=== PATIENT | female | born 1965 | race Caucasian/White ===

== ENCOUNTER 2019-10-15 21:54 | Emergency (ER) | payer OTHER, SELFPAY ==
--- NOTE | ~2019-10-15 | XR_ITS ---
XR chest 2V 10/15/2019 22:43 Indication: Cough and congestion. Procedure: PA and lateral views of the chest Comparison: Comparison to multiple prior studies sequentially, with oldest reviewed study dated 11/13. Findings: Chronic right perihilar atelectasis/scarring. Heart size normal. No acute focal pneumonia, edema or effusion. No pneumothorax. There are cholecystectomy clips. No acute osseous abnormality. Impression: 1: No acute cardiopulmonary disease. Reviewed, dictated and finalized at location A. [employer] Impression: 1: No acute cardiopulmonary disease.
[2019-10-15 21:57] VITALS: BP 130/68; PULSE 94; RESP 20; TEMP 36.4; O2SAT 97
--- NOTE | 2019-10-15 22:12 | ECG_ITS ---
Measurements Intervals [place] Rate: 83 P: 29 CO: 194 QRS: -77 QRSD: 76 T: 4 QT: 381 QTc: 449 Interpretive Statements SINUS RHYTHM LEFT AXIS DEVIATION LOW QRS VOLTAGE IN PRECORDIAL LEADS BORDERLINE R WAVE PROGRESSION, ANTERIOR LEADS INFERIOR INFARCT, AGE INDETERMINATE BORDERLINE T WAVE ABNORMALITY- ANTERIOR LEADS ABNORMAL ECG Electronically Signed On 10-16-2019 7:18:22 [employer] by Ruy Gayle D.O.
[2019-10-15 22:19] VITALS: BP 124/70; BP 144/66; PULSE 88; PULSE 90
[2019-10-15 22:20] VITALS: BP 121/64; PULSE 92
[2019-10-15 22:25] LABS: Basophils Absolute Auto 0.1 K/mm3 (0.0-0.1); Basophils Percent Auto 0.7 % (0.2-1.2); Eosinophils Absolute Auto 0.6 K/mm3 (0-0.3); Eosinophils Percent Auto 4.8 % (0-4.4); Hematocrit 40.6 % (37.0-47.0); Hemoglobin 13.1 g/dL (12.0-15.0); Immature Granulocyte Absolute 0.05 K/mm3 (0.00-0.031); Immature Granulocyte Percent A 0.4 % (0-0.5); Lymphocytes Absolute Auto 3.45 K/mm3 (0.9-3.2); Lymphocytes Percent Auto 29.2 % (18.3-44.2); Mean Corpuscular HGB Conc 32.3 g/dl (32-36); Mean Corpuscular Volume 77.6 fl (80-100); Mean Platelet Volume 11.6 fl (7.4-10.4); Monocytes Percent Auto 8.7 % (2.6-8.5); Neutrophils Absolute Auto 6.6 K/mm3 (1.3-6.7); Neutrophils Percent Auto 56.2 % (45.5-73.1); Platelet Count Result 263 k/mm3 (150-375); Red Blood Count 5.23 M/mm3 (4.2-5.4); Red Cell Distribution Width 13.7 % (11.5-14.5); White Blood Count 11.8 K/mm3 (4.5-10.0)
--- NOTE | 2019-10-15 22:30 | ED.EAR ---
HPI - Ear Problem General Chief complaint: Ear Stated complaint: L ear pain Time Seen by Provider: 10/15/19 22:02 Source: patient Mode of arrival: ambulatory Limitations: no limitations History of Present Illness HPI Narrative: Patient is a 54-year-old female who presents to the emergency department with complaint of left ear pain. Patient reports feeling ill for the past week and a half. Patient reports congestion in her head and chest. She reports cough, rhinorrhea, fever, and shortness of breath. Patient also notes development now of left-sided ear pain with extension into the left side of her head and neck. Patient states she is now also dizzy and nauseous. Patient also reports symptoms of chest pain, but states this is chronic and has a history of small vessel coronary disease. Patient reports having ill family members whom she has been in contact with. MD Complaint: ear pain Location: left ear Context: Reports recent illness Discharge from ear: Reports no Associated symptoms ear: fever, headache, neck pain and rhinorrhea Related Data Allergies Allergy/AdvReac Type Severity Reaction Status Date / Time No Known Allergies Allergy Verified 10/15/19 22:11 Review of Systems Review of Systems: All systems reviewed & are unremarkable except as noted in HPI and below Constitutional: Constitutional: Reports chills and Reports fever(s) ENT: Reports dizziness, Reports otalgia, Reports headache(s), Reports nasal congestion, Reports nasal discharge and Reports neck pain Cardiovascular: Cardiovascular: Reports chest pain Respiratory: Respiratory: Reports cough and Reports dyspnea Gastrointestinal: Gastrointestinal: Denies diarrhea, Reports nausea and Denies vomiting PMFSH Past Medical History Medical History (Updated 10/16/19 @ 00:06 by Diana Garcia MD) Anxiety Bipolar disorder Coronary artery disease Diabetes mellitus Gastroparesis GERD (gastroesophageal reflux disease) Hepatic steatosis Hyperlipidemia IBS (irritable bowel syndrome) Kidney stones Migraines Osteoarthritis Peripheral neuropathy PTSD (post-traumatic stress disorder) Surgical History Surgical History (Updated 10/15/19 @ 22:37 by Diana Garcia MD) History of back surgery History of cholecystectomy History of hysterectomy History of left oophorectomy History of surgery on left wrist History of tonsillectomy Social History Social History (Updated 10/15/19 @ 22:38 by Diana Garcia MD) Smoking status: Former smoker Gender identity (if verbalized by the patient): Female Comments PMD: Dr. Stella Sneed Exam Const: General: cooperative, no acute distress and alert Nutritional Appearance: obese Orientation/consciousness: patient oriented x3 Limitations: no limitations HENMT: Ears: external ears normal and TM abnormal dull on the left and wth effusion serous on the left Mouth: Yes lip normal and Yes moist mucous membranes Resp: Effort & Inspection: normal respiratory effort Auscultation: clear to auscultation bilaterally Cardio: Rate: regular rate Rhythm: regular rhythm GI: GI Palp: Yes Soft to palpation and No Tenderness to palpation present (GI) Auscultation: normal bowel sounds Skin: General skin exam: normal color Neuro: General: patient oriented x3 Cognition (Neuro): normal cognition Speech: normal speech Extrem: General: normal to inspection, full ROM and no clubbing, cyanosis or edema Psych: Mental Status: mental status grossly normal Affect: normal affect Attitude: cooperative Course Course Emergency Course: Patient with multiple illness symptoms consistent with flulike illness/viral syndrome. Influenza testing negative. Patient complains of left otalgia without any findings to suggest acute bacterial infection. Findings are consistent with viral infection. Patient given symptomatic treatment for a migraine headache, which patient reports history of. Patient discharged home with instructions
[2019-10-15 22:34] LABS: Glucose Point of Care 242 (65-105)
[2019-10-15] MEDS: KETOROLAC 30 MG/ML VIAL (*BKC) IV PUSH (22:49)
[2019-10-15 22:51] LABS: Add Urine Microscopic? YES; Appearance Urine Clear (Clear); Bacteria Urine Trace /hpf; Bilirubin Urine Negative (Negative); Blood Urine Negative (Negative); Color Urine Yellow (Yellow); Glucose Urine UA 3+ mg/dL (Negative); Hyaline Casts Urine 20-29 /lpf; Ketones Urine Negative (Negative); Leukocyte Esterase Ur Trace LEU/UL (Negative); Mucus Urine Rare /lpf; Nitrate Urine Negative (Negative); Protein Urine 1+ mg/dL (Negative); Specific Grav Ur 1.018 (1.001-1.035); Squamous Epithelial Cell Urine Moderate /hpf (Few)
[2019-10-15 23:42] LABS: Alanine Aminotransferase 92 U/L (4-35); Albumin Level 3.8 g/dL (3.5-5.1); Alkaline Phosphatase 116 U/L (38-126); Aspartate Amino Transferase 80 U/L (14-36); Bilirubin,Total 0.4 mg/dL (0.2-1.3); Blood Urea Nitrogen 10 mg/dL (7-17); Calcium 8.7 mg/dL (8.4-10.2); Carbon Dioxide 27 mmol/L (22-30); Chloride 95 mmol/L (98-107); Estimated CRCL calculation 107 ml/min; Estimated Glomerular Filt Rate > 60; Glucose 255 mg/dL (65-105); Potassium 3.9 mmol/L (3.4-5.0); Sodium 134 mmol/L (137-145)
[2019-10-15 23:51] VITALS: BP 120/62; PULSE 76; RESP 20; O2SAT 95
[2019-10-15 23:54] LABS: Troponin I < 0.012 ng/mL (0.000-0.034)
[2019-10-16] MEDS: METOCLOPRAMIDE HCL INJ 10 MG/2 ML VIAL IV PUSH (00:02)
[2019-10-16] MEDS: LACTATED RINGERS 1,000 ML 999 ML IV CONT (00:03)
[2019-10-16 00:05] VITALS: BP 124/67; PULSE 72; RESP 20; O2SAT 96
[2019-10-16 00:42] VITALS: BP 109/65; PULSE 73; RESP 20; O2SAT 97
[2019-10-16 01:02] VITALS: BP 109/61; PULSE 73; RESP 20; O2SAT 98
== END 2019-10-16 01:04 | disposition home or self-care (01) ==
PROVIDERS: Emergency Provider Emergency Medicine
DX: H92.02 Otalgia, left ear (principal); J06.9 Acute upper respiratory infection, unspecified; R51 Headache; E86.0 Dehydration; I73.9 Peripheral vascular disease, unspecified; I25.10 Atherosclerotic heart disease of native coronary artery without angina pectoris; K21.9 Gastro-esophageal reflux disease without esophagitis; E11.43 Type 2 diabetes mellitus with diabetic autonomic (poly)neuropathy; K31.84 Gastroparesis; E11.42 Type 2 diabetes mellitus with diabetic polyneuropathy; E78.5 Hyperlipidemia, unspecified; K58.9 Irritable bowel syndrome, unspecified; Z87.442 Personal history of urinary calculi; M19.90 Unspecified osteoarthritis, unspecified site; Z87.891 Personal history of nicotine dependence; R94.31 Abnormal electrocardiogram [ECG] [EKG]
CPT/HCPCS: 36415; 71046; 80053; 81001; 82948; 84484; 85025; 87086; 87804; 93005; 96361; 96374; 96375; 99284; J1200; J1885; J2765; J7120

== ENCOUNTER 2020-01-17 17:18 | Inpatient (IN) | payer OTHER, SELFPAY ==
--- NOTE | ~2020-01-17 | CT_ITS ---
EXAMINATION: CT abdomen pelvis w con EXAM DATE: 01/17/2020 18:19 INDICATION: Abdominal pain. TECHNIQUE: Spiral CT of the abdomen and pelvis was performed following intravenous injection of 100 m L Omnipaque 350. Axial, coronal and sagittal images were reviewed. The dose-length product (DLP) fo r this examination was 999.57 mGy-cm. The exposure was tailored according to patient size (auto mA e xposure control), and iterative reconstruction (ASIR) was used as additional dose reduction technique . Comparison is made to prior examination from 09/14/2014. FINDINGS: The liver, spleen, adrenal glands and pancreas are unremarkable. There are cholecystectomy clips. Portal and splenic veins are patent. Kidneys enhance symmetrically. There is no hydronephr osis. Partially duplicated right renal collecting system, ureters appear to merge just before the UVJ . The uterus is not identified and has likely been surgically resected. The bladder is unremarkable . There is no retroperitoneal or pelvic lymphadenopathy. The appendix is normal. The stomach and small bowel are unremarkable. There is mild to moderate sca ttered colonic diverticulosis and there is moderate inflammation along the descending/sigmoid colonic junction most likely acute uncomplicated diverticulitis. No free intraperitoneal gas. The heart is normal in size. There are no pericardial or pleural effusions. There is a 5 mm nodule in the rig ht middle lobe unchanged, granuloma. There are no osteoblastic or osteolytic lesions identified. IMPRESSION: 1. Acute uncomplicated descending/sigmoid colonic diverticulitis. 2. 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 Reviewed, dictated and finalized at location A.
[2020-01-17 17:23] VITALS: BP 122/66; PULSE 91; RESP 18; TEMP 37.1; O2SAT 100
--- NOTE | 2020-01-17 17:25 | ED.ABDPAIN ---
HPI - Abdominal Pain General Chief Complaint: Abdominal Pain Stated Complaint: Abd Pain Source: RN notes reviewed History of Present Illness HPI narrative: Patient presents emergency department from home via EMS for abdominal pain. Patient states symptoms began yesterday. Patient states pain is diffuse and worse in the left lower quadrant described as sharp and stabbing associated with nausea and vomiting. Patient denies any fevers or chills chest pain shortness of breath diarrhea or any other symptoms patient does note mild constipation patient was given morphine and Zofran by EMS in route with improvement of symptoms Related Data Allergies Allergy/AdvReac Type Severity Reaction Status Date / Time No Known Allergies Allergy Verified 10/15/19 22:11 Review of Systems Review of Systems: Narrative: Gen.: Denies fevers or chills ENT: Denies congestion Respiratory: Denies shortness of breath or cough CV: Denies chest pain or palpitations GI: See HPI denies burning, urgency, frequency or hematuria Musculoskeletal: Denies back pain or muscle pain Neuro: Denies numbness, tingling, weakness or focal weakness Skin: Denies rash Except as documented, all other systems reviewed and negative [facility] Past Medical History Medical History Anxiety Bipolar disorder Coronary artery disease Diabetes mellitus Gastroparesis GERD (gastroesophageal reflux disease) Hepatic steatosis Hyperlipidemia IBS (irritable bowel syndrome) Kidney stones Migraines Osteoarthritis Peripheral neuropathy PTSD (post-traumatic stress disorder) Surgical History Surgical History (Updated 10/15/19 @ 22:37 by Diana Garcia MD) History of back surgery History of cholecystectomy History of hysterectomy History of left oophorectomy History of surgery on left wrist History of tonsillectomy Social History Social History Smoking status: Former smoker Gender identity (if verbalized by the patient): Female Exam Narrative: Exam Narrative: APPEARANCE: No acute distress, nontoxic, resting in bed HEENT: Normocephalic, atraumatic, OMM RESPIRATORY: No respiratory distress, clear to auscultation bilaterally with no rhonchi wheezing or rales CARDIOVASCULAR: RRR s murmur ABDOMINAL: Soft, nondistended, diffusely tender to palpation no rebound or guarding MUSCULOSKELETAl: Moves all extremities. No clubbing, cyanosis or edema. NEURO: Awake and alert. Following commands, speech normal, no focal deficits SKIN:: Warm, dry. Normal Color PSYCHIATRIC: Normal affect/mood Course Course Emergency Course: Patient continues to be nauseous at this time Zofran and Phenergan secondary to continued nausea will admit for IV antibiotics Discussed with VALERIANO Cooney for Dr. Magana presentation work-up agrees with admission at this time Discussed with patient and family results of workup and diagnosis. Discussed need for admission. Patient and family understand and agree to current treatment plan Vital Signs Vital signs: Vital Signs Temperature 98.7 F 01/17/20 17:23 Pulse Rate 91 01/17/20 17:23 Respiratory Rate 18 01/17/20 17:23 Blood Pressure 122/66 01/17/20 17:23 Pulse Oximetry 100 01/17/20 17:23 Temperature 98.7 F 01/17/20 17:23 Pulse Rate 91 01/17/20 17:23 Respiratory Rate 18 01/17/20 17:23 Blood Pressure 122/66 01/17/20 17:23 Pulse Oximetry 100 01/17/20 17:23 MDM - Abdominal Pain Lab Data Result diagrams: 01/17/20 17:38 01/17/20 17:38 Labs: Lab Results 01/17/20 01/17/20 01/17/20 Range/Units 17:38 17:38 17:38 WBC 11.1 H (4.5-10.0) K/mm3 RBC 4.32 (4.2-5.4) M/mm3 Hgb 11.1 L (12.0-15.0) g/dL Hct 33.8 L (37.0-47.0) % MCV 78.2 L (80-100) fl MCH 25.7 L (26-34) pg MCHC 32.8 (32-36) g/dl RDW 14.2 (11.5-14.5) % Plt Count 194 (150-375) k/mm3
[2020-01-17 17:45] LABS: Basophils Absolute Auto 0.1 K/mm3 (0.0-0.1); Basophils Percent Auto 0.4 % (0.2-1.2); Eosinophils Absolute Auto 0.2 K/mm3 (0-0.3); Eosinophils Percent Auto 1.9 % (0-4.4); Hematocrit 33.8 % (37.0-47.0); Hemoglobin 11.1 g/dL (12.0-15.0); Immature Granulocyte Absolute 0.05 K/mm3 (0.00-0.031); Immature Granulocyte Percent A 0.4 % (0-0.5); Lymphocytes Absolute Auto 2.41 K/mm3 (0.9-3.2); Lymphocytes Percent Auto 21.7 % (18.3-44.2); Mean Corpuscular HGB Conc 32.8 g/dl (32-36); Mean Corpuscular Hemoglobin 25.7 pg (26-34); Mean Corpuscular Volume 78.2 fl (80-100); Mean Platelet Volume 11.6 fl (7.4-10.4); Monocytes Absolute Auto 1.2 K/mm3 (0.1-0.6); Monocytes Percent Auto 10.5 % (2.6-8.5); Neutrophils Absolute Auto 7.2 K/mm3 (1.3-6.7); Neutrophils Percent Auto 65.1 % (45.5-73.1); Platelet Count Result 194 k/mm3 (150-375); Red Blood Count 4.32 M/mm3 (4.2-5.4); Red Cell Distribution Width 14.2 % (11.5-14.5); White Blood Count 11.1 K/mm3 (4.5-10.0)
[2020-01-17] MEDS: SODIUM CHLORIDE 0.9% IV 1,000 ML 999 ML IV CONT (17:50)
[2020-01-17 17:55] LABS: INR 1.2; Prothrombin Time 14.6 Seconds (11.1-14.7)
[2020-01-17 17:56] LABS: Partial Thromboplastin Time 26.1 SECONDS (22.3-36.8)
[2020-01-17] MEDS: PROMETHAZINE HCL 25 MG/ML AMPUL 12.5 MG IV PUSH (17:59)
[2020-01-17 18:00] LABS: Alanine Aminotransferase 43 U/L (4-35); Albumin Level 3.5 g/dL (3.5-5.1); Alkaline Phosphatase 100 U/L (38-126); Aspartate Amino Transferase 30 U/L (14-36); Bilirubin,Total 0.5 mg/dL (0.2-1.3); Blood Urea Nitrogen 7 mg/dL (7-17); Calcium 7.9 mg/dL (8.4-10.2); Carbon Dioxide 26 mmol/L (22-30); Chloride 104 mmol/L (98-107); Estimated CRCL calculation 107 ml/min; Estimated Glomerular Filt Rate > 60; Glucose 109 mg/dL (65-105); Lipase 128 U/L (23-300); Potassium 3.5 mmol/L (3.4-5.0); Sodium 136 mmol/L (137-145)
--- NOTE | 2020-01-17 19:32 | PM.IMHP ---
H&P: HPI History of Present Illness Chief complaint: Diverticulitis, N/V Narrative: This is a pleasant 54 year old morbidly obese Diabetic female with known history of irritable bowel syndrome and diverticular disease presented to the hospital with a complaint of severe left lower quadrant abdominal pain. She is known to have chronic diarrhea and reports that her symptoms started yesterday. Yesterday she had multiple episodes of nausea and vomiting although today she hasn't been vomiting because she didn't eat anything. She denies any fever, chills, abdominal distention, vomiting up blood, bloody diarrhea, hematuria, dysuria, chest pain, cough, wheezing, or focal neurological symptoms. She also reports that today she saw pulmonology as she has been experiencing exertional dyspnea and believes that she may have undiagnosed COPD as she is a lifelong smoker who quit about 4 years ago. She denies any other significant symptoms. The patient was evaluated in the ER today and CT abd/pelvis demonstrated acute uncomplicated descending/sigmoid colonic diverticulitis. The patient has been started on Zosyn IV and admitted to the hospital for further care. The patient also mentions that she is sees Gastroenterology in [place] for her chronic irritable bowel syndrome. No other complaints. Review of Systems Review of Systems: All systems reviewed & are unremarkable except as noted in HPI and below PMFSH Past Medical History Medical History Anxiety Bipolar disorder Coronary artery disease Diabetes mellitus Gastroparesis GERD (gastroesophageal reflux disease) Hepatic steatosis Hyperlipidemia IBS (irritable bowel syndrome) Kidney stones Migraines Osteoarthritis Peripheral neuropathy PTSD (post-traumatic stress disorder) Surgical History Surgical History History of back surgery History of cholecystectomy History of hysterectomy History of left oophorectomy History of surgery on left wrist History of tonsillectomy Family History Family History Father Hypertension Mother Hypertension Social History Social History Smoking packs per day: 1 Smoking cigarettes per day: 20.0 Years smoked: 25 Smoking pack-years: 25.00 Smoking status: Former smoker Tobacco type: cigarettes Alcohol intake: never Substance use: former Substance use type: marijuana Gender identity (if verbalized by the patient): Female Spiritual care concerns: No Meds Home Medications and Allergies Home Medications Medication Instructions Recorded Confirmed Type albuterol sulfate 2 puff INHALATION QID PRN 01/17/20 01/17/20 History aspirin 81 mg PO DAILY 01/17/20 01/17/20 History atorvastatin 80 mg PO HS 01/17/20 01/17/20 History budesonide-formoterol [Symbicort] 2 puff INHALATION DAILY 01/17/20 01/17/20 History citalopram 40 mg PO DAILY 01/17/20 01/17/20 History cromolyn 1 drp OPHTHALMIC (EYE) 4-6XD 01/17/20 01/17/20 History exenatide [Byetta] See Protocol SUBCUT TIDWM 01/17/20 01/17/20 History famotidine 20 mg PO HS 01/17/20 01/17/20 History fluticasone propionate 1 spray INTRANASAL DAILY 01/17/20 01/17/20 History glipizide 10 mg PO BID 01/17/20 01/17/20 History insulin lispro [Admelog U-100 1 sliding scale dose SUBCUT 01/17/20 01/17/20 History Insulin lispro] USEASDIRECTD isosorbide mononitrate 60 mg PO DAILY 01/17/20 01/17/20 History lisinopril 10 mg PO DAILY 01/17/20 01/17/20 History lorazepam 1 mg PO DAILY 01/17/20 01/17/20 History metformin 1,000 mg PO BID 01/17/20 01/17/20 History metoclopramide HCl 5 mg PO TIDWM 01/17/20 01/17/20 History metoprolol tartrate 50 mg PO Q12H 01/17/20 01/17/20 History montelukast 10 mg PO DAILY 01/17/20 01/17/20 History nitroglycerin 0.4 mg SUBLINGUAL Q5-15M PRN 01/17/20 01/17/20 History omeprazole 20 mg P
[2020-01-17 19:58] LABS: Add Urine Microscopic? NO; Appearance Urine Clear (Clear); Bilirubin Urine Negative (Negative); Blood Urine Negative (Negative); Color Urine Colorless (Yellow); Glucose Urine UA Negative (Negative); Ketones Urine Negative (Negative); Leukocyte Esterase Ur Negative LEU/UL (Negative); Nitrate Urine Negative (Negative); Protein Urine Negative (Negative); Specific Grav Ur 1.014 (1.001-1.035); Urobilinogen Urine Negative mg/dL (<2.0)
[2020-01-17 20:35] VITALS: BP 94/51; PULSE 58; RESP 16; TEMP 36.4; O2SAT 95; BMI 37.2
[2020-01-17] MEDS: ONDANSETRON INJ 4 MG/2 ML VIAL IV PUSH (20:43)
[2020-01-17] MEDS: MORPHINE SULFATE 4 MG/ML INJ IV PUSH (20:43)
[2020-01-17 23:00] VITALS: PULSE 95; RESP 18; O2SAT 85
[2020-01-17] MEDS: SODIUM CHLORIDE 0.9% IV 1,000 ML 125 ML IV CONT (23:12)
[2020-01-17 23:23] LABS: Glucose Point of Care 88 (65-105)
[2020-01-18] MEDS: MORPHINE SULFATE 4 MG/ML INJ IV PUSH ×5 (01:18→20:09)
[2020-01-18 05:00] VITALS: BP 101/59; PULSE 60; RESP 16; TEMP 36.3; O2SAT 96
[2020-01-18 05:02] LABS: Basophils Absolute Auto 0.1 K/mm3 (0.0-0.1); Basophils Percent Auto 0.7 % (0.2-1.2); Eosinophils Absolute Auto 0.3 K/mm3 (0-0.3); Eosinophils Percent Auto 2.9 % (0-4.4); Hematocrit 33.8 % (37.0-47.0); Hemoglobin 10.9 g/dL (12.0-15.0); Immature Granulocyte Absolute 0.03 K/mm3 (0.00-0.031); Immature Granulocyte Percent A 0.3 % (0-0.5); Lymphocytes Absolute Auto 2.98 K/mm3 (0.9-3.2); Lymphocytes Percent Auto 29.3 % (18.3-44.2); Mean Corpuscular HGB Conc 32.2 g/dl (32-36); Mean Corpuscular Hemoglobin 25.3 pg (26-34); Mean Corpuscular Volume 78.6 fl (80-100); Mean Platelet Volume 10.8 fl (7.4-10.4); Monocytes Absolute Auto 1.1 K/mm3 (0.1-0.6); Monocytes Percent Auto 10.4 % (2.6-8.5); Neutrophils Absolute Auto 5.7 K/mm3 (1.3-6.7); Neutrophils Percent Auto 56.4 % (45.5-73.1); Platelet Count Result 172 k/mm3 (150-375); Red Cell Distribution Width 14.2 % (11.5-14.5); White Blood Count 10.2 K/mm3 (4.5-10.0)
[2020-01-18] MEDS: ONDANSETRON INJ 4 MG/2 ML VIAL IV PUSH ×4 (05:02→20:10)
[2020-01-18 05:19] LABS: Alanine Aminotransferase 36 U/L (4-35); Albumin Level 3.1 g/dL (3.5-5.1); Alkaline Phosphatase 78 U/L (38-126); Aspartate Amino Transferase 26 U/L (14-36); Bilirubin,Total 0.8 mg/dL (0.2-1.3); Blood Urea Nitrogen 8 mg/dL (7-17); Calcium 7.9 mg/dL (8.4-10.2); Carbon Dioxide 30 mmol/L (22-30); Chloride 107 mmol/L (98-107); Estimated CRCL calculation 96 ml/min; Estimated Glomerular Filt Rate > 60; Glucose 76 mg/dL (65-105); Potassium 3.4 mmol/L (3.4-5.0); Sodium 139 mmol/L (137-145)
[2020-01-18 06:16] LABS: Glucose Point of Care 79 (65-105)
[2020-01-18 08:58] VITALS: PULSE 64; RESP 16; O2SAT 96
[2020-01-18] MEDS: SODIUM CHLORIDE 0.9% IV 1,000 ML 125 ML IV CONT ×2 (08:58→17:36)
[2020-01-18] MEDS: PANTOPRAZOLE SODIUM IV 40 MG VIAL IV PUSH (08:58)
[2020-01-18 11:15] VITALS: BMI 37.2
[2020-01-18 11:32] LABS: Glucose Point of Care 85 (65-105)
--- NOTE | 2020-01-18 12:55 | P.PNIM_ITS ---
Progress Note: A&P Assessment and Plan (1) Sigmoid diverticulitis: Code(s): K57.32 - Diverticulitis of large intestine without perforation or abscess without bleeding Status: Acute Assessment and Plan: CT a/p on 01/17/20 shows acute uncomplicated descending/sigmoid colonic diverticulitis. Patient has had episodes of diverticulitis before and is established with GI at [facility]. She endorses diffuse abdominal pain which is worse in the left lower quadrant. She has not had any nausea or vomiting. She is afebrile. White count is 10.2. * Continue IV Zosyn * Advanced to clear liquid diet. Continue to advance diet as tolerated to low- fiber diet. * Continue IV fluids at 100 mL/hour * Continue Zofran as needed * Continue analgesics as needed (2) Microcytic anemia: Code(s): D50.9 - Iron deficiency anemia, unspecified Status: Acute Assessment and Plan: At presentation, hemoglobin is 11.1 and hematocrit is 33.8. she does not have a history of anemia from review of prior labs. There is no evidence of active bleeding or bruising. This is likely multifactorial. Her vitals are stable. Today, hemoglobin is 10.9 and hematocrit is 33.8. * Monitor H&H and transfuse as needed * Obtain iron panel, B12, and folate (3) Diabetes mellitus: Code(s): E11.9 - Type 2 diabetes mellitus without complications Status: Chronic Assessment and Plan: Patient uses insulin pump. She has been evaluated by CDE. Last A1c documented is from March 2019 at 10.2. * Will place orders for continued insulin pump use. Settings are as follows: Admelog insulin with basal rate of 1.8 units/hr and bolus 1 unit for every 5 carbs. Sensitivity factor of 20 and target blood sugar 120. * Continue accuchecks, SSI coverage, and hypoglycemic protocol. * Resume glipizide tomorrow. Previously held as she was NPO. * Check updated A1c (4) Coronary artery disease: Code(s): I25.10 - Atherosclerotic heart disease of [place] coronary artery without angina pectoris Status: Chronic Assessment and Plan: Stable. No chest pain tonight. * Will resume aspirin, isosorbide mononitrate, atorvastatin, nitro, lisinopril, and metoprolol tomorrow as she advances her diet. All previously held as she was NPO. (5) Bipolar disorder: Code(s): F31.9 - Bipolar disorder, unspecified Status: Chronic Assessment and Plan: Stable. * Resume seroquel tomorrow. Previously held given NPO status. (6) Vaginal irritation: Code(s): N89.8 - Other specified noninflammatory disorders of vagina Status: Acute Assessment and Plan: Patient complains of new onset of vaginal irritation. She has had yeast infections in the past and states this feels similar. This may be due to antibiotic therapy. She denies vaginal discharge or dysuria. UA was clear. * Administer Diflucan x1 dose * Will consider test for bacterial vaginosis, gonorrhea, and chlamydia if symptoms persist (7) GERD (gastroesophageal reflux disease): Code(s): K21.9 - Gastro-esophageal reflux disease without esophagitis Status: Chronic Assessment and Plan: Stable. * Continue IV protonix (8) IBS (irritable bowel syndrome): Code(s): K58.9 - Irritable bowel syndrome without diarrhea Status: Chronic Assessment and Plan: Patient has long history of IBS with diarrhea. She has established with a label stitcher at [facility]. She denies any recent episodes of diarrhea.
--- NOTE | 2020-01-18 12:55 | PM.IMPN ---
Progress Note: A&P Assessment and Plan (1) Sigmoid diverticulitis: Code(s): K57.32 - Diverticulitis of large intestine without perforation or abscess without bleeding Status: Acute Assessment and Plan: CT a/p on 01/17/20 shows acute uncomplicated descending/sigmoid colonic diverticulitis. Patient has had episodes of diverticulitis before and is established with GI at [facility]. She endorses diffuse abdominal pain which is worse in the left lower quadrant. She has not had any nausea or vomiting. She is afebrile. White count is 10.2. Continue IV Zosyn Advanced to clear liquid diet. Continue to advance diet as tolerated to low-fiber diet. Continue IV fluids at 100 mL/hour Continue Zofran as needed Continue analgesics as needed (2) Microcytic anemia: Code(s): D50.9 - Iron deficiency anemia, unspecified Status: Acute Assessment and Plan: At presentation, hemoglobin is 11.1 and hematocrit is 33.8. she does not have a history of anemia from review of prior labs. There is no evidence of active bleeding or bruising. This is likely multifactorial. Her vitals are stable. Today, hemoglobin is 10.9 and hematocrit is 33.8. Monitor H&H and transfuse as needed Obtain iron panel, B12, and folate (3) Diabetes mellitus: Code(s): E11.9 - Type 2 diabetes mellitus without complications Status: Chronic Assessment and Plan: Patient uses insulin pump. She has been evaluated by CDE. Last A1c documented is from March [address] orders for continued insulin pump use. Settings are as follows: Admelog insulin with basal rate of 1.8 units/hr and bolus 1 unit for every 5 carbs. Sensitivity factor of 20 and target blood sugar 120. Continue accuchecks, SSI coverage, and hypoglycemic protocol. Resume glipizide tomorrow. Previously held as she was NPO. Check updated A1c (4) Coronary artery disease: Code(s): I25.10 - Atherosclerotic heart disease of [place] coronary artery without angina pectoris Status: Chronic Assessment and Plan: Stable. No chest pain tonight. Will resume aspirin, isosorbide mononitrate, atorvastatin, nitro, lisinopril, and metoprolol tomorrow as she advances her diet. All previously held as she was NPO. (5) Bipolar disorder: Code(s): F31.9 - Bipolar disorder, unspecified Status: Chronic Assessment and Plan: Stable. Resume seroquel tomorrow. Previously held given NPO status. (6) Vaginal irritation: Code(s): N89.8 - Other specified noninflammatory disorders of vagina Status: Acute Assessment and Plan: Patient complains of new onset of vaginal irritation. She has had yeast infections in the past and states this feels similar. This may be due to antibiotic therapy. She denies vaginal discharge or dysuria. UA was clear. Administer Diflucan x1 dose Will consider test for bacterial vaginosis, gonorrhea, and chlamydia if symptoms persist (7) GERD (gastroesophageal reflux disease): Code(s): K21.9 - Gastro-esophageal reflux disease without esophagitis Status: Chronic Assessment and Plan: Stable. Continue IV protonix (8) IBS (irritable bowel syndrome): Code(s): K58.9 - Irritable bowel syndrome without diarrhea Status: Chronic Assessment and Plan: Patient has long history of IBS with diarrhea. She has established with a home theater expert at [facility]. She denies any recent episodes of diarrhea. Continue to monitor Subjective Date/time seen: 01/18/20 12:55 Interval history: Date of service: 01/18/2020 She reports she is feeling well today. She is hungry and requesting to eat. She complains of diffuse abdominal pain which is worse in the left lower quadrant currently rating 9/10. She denies nausea, vomiting, or diarrhea. She denies fever or chills. She has not had a bowel movement but she is passing gas.
[2020-01-18 14:00] VITALS: BP 146/75; PULSE 61; RESP 18; TEMP 36.2; O2SAT 95
[2020-01-18] MEDS: ACETAMINOPHEN 325 MG TABLET 650 MG PO (16:09)
[2020-01-18 16:48] LABS: Glucose Point of Care 220 (65-105)
[2020-01-18 19:45] VITALS: BP 149/76; PULSE 64; RESP 16; TEMP 36.3; O2SAT 97
[2020-01-19 02:32] LABS: Glucose Point of Care 142 (65-105)
[2020-01-19] MEDS: SODIUM CHLORIDE 0.9% IV 1,000 ML 100 ML IV CONT ×2 (04:43→17:37)
[2020-01-19 05:54] LABS: Basophils Absolute Auto 0.1 K/mm3 (0.0-0.1); Basophils Percent Auto 0.8 % (0.2-1.2); Eosinophils Absolute Auto 0.4 K/mm3 (0-0.3); Eosinophils Percent Auto 5.1 % (0-4.4); Hematocrit 35.5 % (37.0-47.0); Hemoglobin 11.5 g/dL (12.0-15.0); Immature Granulocyte Absolute 0.03 K/mm3 (0.00-0.031); Immature Granulocyte Percent A 0.4 % (0-0.5); Mean Corpuscular HGB Conc 32.4 g/dl (32-36); Mean Corpuscular Hemoglobin 25.3 pg (26-34); Mean Platelet Volume 11.3 fl (7.4-10.4); Monocytes Absolute Auto 0.7 K/mm3 (0.1-0.6); Monocytes Percent Auto 9.7 % (2.6-8.5); Neutrophils Absolute Auto 4.2 K/mm3 (1.3-6.7); Platelet Count Result 191 k/mm3 (150-375); Red Blood Count 4.55 M/mm3 (4.2-5.4); White Blood Count 7.5 K/mm3 (4.5-10.0)
[2020-01-19 06:00] VITALS: BP 131/78; PULSE 64; RESP 20; TEMP 36.2; O2SAT 96
[2020-01-19 06:06] LABS: Alanine Aminotransferase 32 U/L (4-35); Albumin Level 3.3 g/dL (3.5-5.1); Alkaline Phosphatase 85 U/L (38-126); Aspartate Amino Transferase 24 U/L (14-36); Bilirubin,Total 0.6 mg/dL (0.2-1.3); Blood Urea Nitrogen 3 mg/dL (7-17); Carbon Dioxide 29 mmol/L (22-30); Chloride 105 mmol/L (98-107); Estimated CRCL calculation 96 ml/min; Estimated Glomerular Filt Rate > 60; Glucose 123 mg/dL (65-105); Potassium 3.3 mmol/L (3.4-5.0); Sodium 140 mmol/L (137-145)
[2020-01-19 06:11] LABS: Glucose Point of Care 127 (65-105)
[2020-01-19 06:12] LABS: Hemoglobin A1C 9.1 % (<5.7)
[2020-01-19] MEDS: POTASSIUM CHLORIDE 20 MEQ TABLET 40 MEQ PO (06:53)
[2020-01-19 07:11] LABS: Folic Acid 10.9 ng/mL (2.76->20)
[2020-01-19 08:22] LABS: Glucose Point of Care 116 (65-105)
[2020-01-19 09:19] LABS: Iron 65 ug/dL (37-170)
[2020-01-19 09:30] LABS: Percent Iron Saturation 23 % (20-50)
[2020-01-19] MEDS: PANTOPRAZOLE SODIUM IV 40 MG VIAL IV PUSH (10:13)
[2020-01-19] MEDS: ONDANSETRON INJ 4 MG/2 ML VIAL IV PUSH (10:20)
[2020-01-19 11:53] LABS: Glucose Point of Care 228 (65-105)
--- NOTE | 2020-01-19 12:32 | P.PNIM_ITS ---
Progress Note: A&P Assessment and Plan (1) Sigmoid diverticulitis: Code(s): K57.32 - Diverticulitis of large intestine without perforation or abscess without bleeding Status: Acute Assessment and Plan: CT a/p on 01/17/20 shows acute uncomplicated descending/sigmoid colonic diverticulitis. Patient has had episodes of diverticulitis before and is established with GI at [facility]. She endorses LLQ pain without fever, chills, nausea, or vomiting. She is afebrile. White count is 7.5. * Continue IV Zosyn * Advanced to low fat diet. * Continue IV fluids at 100 mL/hour * Continue Zofran as needed * Continue analgesics as needed * Hopeful discharge tomorrow if she continues to tolerate full diet and pain improves (2) Microcytic anemia: Code(s): D50.9 - Iron deficiency anemia, unspecified Status: Acute Assessment and Plan: At presentation, hemoglobin is 11.1 and hematocrit is 33.8. she does not have a history of anemia from review of prior labs. There is no evidence of active bleeding or bruising. This is likely multifactorial. Her vitals are stable. Im proved today with hemoglobin 11.5 and hematocrit 35.5. B12 and Folate wnl. * Monitor H&H and transfuse as needed * Iron panel is pending. (3) Diabetes mellitus: Qualifiers: Diabetes mellitus usp insulin use: with usp use Diabetes mellitus complication status: with neurologic complications Diabetes mellitus complication detail: with polyneuropathy Code(s): E11.9 - Type 2 diabetes mellitus without complications Status: Chronic Assessment and Plan: Patient uses insulin pump. She has been evaluated by CDE. Updated A1c from 01/17 is 9.1. Blood sugar reviewed today and are at target. * Continue insulin pump. Settings are as follows: Admelog insulin with basal rate of 1.8 units/hr and bolus 1 unit for every 5 carbs. Sensitivity factor of 20 and target blood sugar 120. * Continue accuchecks, SSI coverage, and hypoglycemic protocol. * Her metformin, glipizide and exenatide are on hold. (4) Coronary artery disease: Code(s): I25.10 - Atherosclerotic heart disease of [place] coronary artery without angina pectoris Status: Chronic Assessment and Plan: Stable. She denies chest pain. * Resume aspirin, isosorbide mononitrate, atorvastatin, nitro, lisinopril, and metoprolol tomorrow as she advances her diet. All previously held as she was NPO. (5) Bipolar disorder: Code(s): F31.9 - Bipolar disorder, unspecified Status: Chronic Assessment and Plan: Stable. * Resume seroquel tomorrow. Previously held given NPO status. (6) GERD (gastroesophageal reflux disease): Code(s): K21.9 - Gastro-esophageal reflux disease without esophagitis Status: Chronic Assessment and Plan: Stable. * Continue IV protonix (7) IBS (irritable bowel syndrome): Code(s): K58.9 - Irritable bowel syndrome without diarrhea Status: Chronic Assessment and Plan: Patient has long history of IBS with diarrhea. She has established with a ethanol operator at [facility]. She had a loose stool this morning. * Continue to monitor Subjective Date/time seen: 01/19/20 12:32 Interval history: Date of service: 01/19/2020 She reports she has been better today. She is tolerating a full liquid diet. She continues to endorse left lower quadrant pain which she now rates 7/10. She states her pain is worse when she has a bowel movement or pa
--- NOTE | 2020-01-19 12:32 | PM.IMPN ---
Progress Note: A&P Assessment and Plan (1) Sigmoid diverticulitis: Code(s): K57.32 - Diverticulitis of large intestine without perforation or abscess without bleeding Status: Acute Assessment and Plan: CT a/p on 01/17/20 shows acute uncomplicated descending/sigmoid colonic diverticulitis. Patient has had episodes of diverticulitis before and is established with GI at [facility]. She endorses LLQ pain without fever, chills, nausea, or vomiting. She is afebrile. White count is 7.5. Continue IV Zosyn Advanced to low fat diet. Continue IV fluids at 100 mL/hour Continue Zofran as needed Continue analgesics as needed Hopeful discharge tomorrow if she continues to tolerate full diet and pain improves (2) Microcytic anemia: Code(s): D50.9 - Iron deficiency anemia, unspecified Status: Acute Assessment and Plan: At presentation, hemoglobin is 11.1 and hematocrit is 33.8. she does not have a history of anemia from review of prior labs. There is no evidence of active bleeding or bruising. This is likely multifactorial. Her vitals are stable. Improved today with hemoglobin 11.5 and hematocrit 35.5. B12 and Folate wnl. Monitor H&H and transfuse as needed Iron panel is pending. (3) Diabetes mellitus: Qualifiers: Diabetes mellitus intermediate insulin use: with intermediate use Diabetes mellitus complication status: with neurologic complications Diabetes mellitus complication detail: with polyneuropathy Code(s): E11.9 - Type 2 diabetes mellitus without complications Status: Chronic Assessment and Plan: Patient uses insulin pump. She has been evaluated by CDE. Updated A1c from 01/17 is 9.1. Blood sugar reviewed today and are at target. Continue insulin pump. Settings are as follows: Admelog insulin with basal rate of 1.8 units/hr and bolus 1 unit for every 5 carbs. Sensitivity factor of 20 and target blood sugar 120. Continue accuchecks, SSI coverage, and hypoglycemic protocol. Her metformin, glipizide and exenatide are on hold. (4) Coronary artery disease: Code(s): I25.10 - Atherosclerotic heart disease of [place] coronary artery without angina pectoris Status: Chronic Assessment and Plan: Stable. She denies chest pain. Resume aspirin, isosorbide mononitrate, atorvastatin, nitro, lisinopril, and metoprolol tomorrow as she advances her diet. All previously held as she was NPO. (5) Bipolar disorder: Code(s): F31.9 - Bipolar disorder, unspecified Status: Chronic Assessment and Plan: Stable. Resume seroquel tomorrow. Previously held given NPO status. (6) GERD (gastroesophageal reflux disease): Code(s): K21.9 - Gastro-esophageal reflux disease without esophagitis Status: Chronic Assessment and Plan: Stable. Continue IV protonix (7) IBS (irritable bowel syndrome): Code(s): K58.9 - Irritable bowel syndrome without diarrhea Status: Chronic Assessment and Plan: Patient has long history of IBS with diarrhea. She has established with a gold cutter at [facility]. She had a loose stool this morning. Continue to monitor Subjective Date/time seen: 01/19/20 12:32 Interval history: Date of service: 01/19/2020 She reports she has been better today. She is tolerating a full liquid diet. She continues to endorse left lower quadrant pain which she now rates 7/10. She states her pain is worse when she has a bowel movement or passes gas. She denies fever or chills. She had a loose stool this morning. She denies any nausea or vomiting. She denies chest pain or shortness of breath. She is ambulating around the room without difficulty. Review of Systems Review of Systems: Narrative: A 12 point review of systems was reviewed with pertinent positives and negatives as per HPI. Exam Narrative: Exam Narrative: Ms. Young is examined alone today. She
[2020-01-19] MEDS: KETOROLAC 30 MG/ML VIAL (*BKC) IV PUSH (13:14)
[2020-01-19 14:00] VITALS: BP 148/83; PULSE 69; RESP 16; TEMP 36.1; O2SAT 97
[2020-01-19 16:52] LABS: Glucose Point of Care 263 (65-105)
[2020-01-19 20:10] VITALS: BP 145/72; PULSE 65; RESP 16; TEMP 36.5; O2SAT 97
[2020-01-19 20:29] VITALS: PULSE 55
[2020-01-19] MEDS: QUEtiapine FUMARATE 100 MG TABLET 200 MG PO (20:29)
[2020-01-19] MEDS: METOPROLOL TARTRATE 50 MG TAB PO (20:29)
[2020-01-19 23:21] LABS: Glucose Point of Care 182 (65-105)
[2020-01-20] MEDS: SODIUM CHLORIDE 0.9% IV 1,000 ML 100 ML IV CONT (05:00)
[2020-01-20 05:12] LABS: Glucose Point of Care 120 (65-105)
[2020-01-20 05:19] LABS: Hematocrit 35.6 % (37.0-47.0); Hemoglobin 11.5 g/dL (12.0-15.0); Mean Corpuscular HGB Conc 32.3 g/dl (32-36); Mean Corpuscular Volume 77.4 fl (80-100); Mean Platelet Volume 11.2 fl (7.4-10.4); Platelet Count Result 222 k/mm3 (150-375); Red Cell Distribution Width 13.8 % (11.5-14.5)
[2020-01-20 05:24] VITALS: BP 147/85; PULSE 55; RESP 14; TEMP 36.4; O2SAT 98
[2020-01-20 05:33] LABS: Blood Urea Nitrogen 4 mg/dL (7-17); Calcium 8.3 mg/dL (8.4-10.2); Carbon Dioxide 29 mmol/L (22-30); Chloride 105 mmol/L (98-107); Estimated CRCL calculation 110 ml/min; Estimated Glomerular Filt Rate > 60; Glucose 122 mg/dL (65-105); Potassium 3.6 mmol/L (3.4-5.0); Sodium 139 mmol/L (137-145)
[2020-01-20 07:44] LABS: Glucose Point of Care 116 (65-105)
[2020-01-20] MEDS: ISOSORBIDE MONONITRATE 60 MG TAB.ER.24H PO (09:46)
[2020-01-20] MEDS: FLUTICASONE PROPIONATE 0.05% NA SPR 16 GM BTL (*BKC) 1 SPRAY NASAL (09:47)
[2020-01-20] MEDS: PANTOPRAZOLE SODIUM IV 40 MG VIAL IV PUSH (09:47)
[2020-01-20 09:48] VITALS: PULSE 60
[2020-01-20] MEDS: MONTELUKAST SODIUM 10 MG TABLET PO (09:48)
[2020-01-20] MEDS: METOPROLOL TARTRATE 50 MG TAB PO (09:48)
[2020-01-20 11:31] LABS: Glucose Point of Care 235 (65-105)
[2020-01-20] MEDS: lisinopriL 10 MG TABLET PO (11:54)
[2020-01-20] MEDS: CITALOPRAM HYDROBROMIDE 20 MG TABLET 40 MG PO (11:54)
--- NOTE | 2020-01-20 12:59 | PM.DS ---
DS: Admitting Diagnosis Admitting Diagnosis Admitting Diagnosis: Diverticulitis of large intestine without perforation or abscess without bleeding DS: Discharge Diagnosis Discharge Diagnosis (1) Sigmoid diverticulitis: Code(s): K57.32 - Diverticulitis of large intestine without perforation or abscess without bleeding Status: Acute Assessment and Plan: CT a/p on 01/17/20 demonstrated acute uncomplicated descending/sigmoid colonic diverticulitis. Patient has had episodes of diverticulitis before and is established with GI at [facility]. She was treated with IV Zosyn and was able to tolerate a low-fat diet. Her abdominal pain improved. She remained afebrile in her mild leukocytosis improved. She will continue Augmentin as an outpatient to complete a 10 day course of antibiotics. She will follow-up with her turn out worker. (2) Microcytic anemia: Code(s): D50.9 - Iron deficiency anemia, unspecified Status: Acute Assessment and Plan: She had very mild microcytic anemia. Iron panel was within normal limits, as were vitamin B12 and folate. She displayed no active bleeding or bruising. Her levels remained stable. (3) Diabetes mellitus: Qualifiers: Diabetes mellitus director long term care insulin use: with director long term care use Diabetes mellitus complication status: with neurologic complications Diabetes mellitus complication detail: with polyneuropathy Code(s): E11.9 - Type 2 diabetes mellitus without complications Status: Chronic Assessment and Plan: She has used an insulin pump for approximately 1 year. An updated A1c was checked on 01/17 which was 9.1. She was evaluated by CDE. She continued using her pump during her stay with no difficulty and her blood sugars were at target. She will continue her home glycemic regimen and record her blood sugars for review by PCP. (4) Coronary artery disease: Code(s): I25.10 - Atherosclerotic heart disease of [place] coronary artery without angina pectoris Status: Chronic Assessment and Plan: Stable during her stay. Her cardiac medications were initially on hold as she was NPO but were resumed as her diet advanced. (5) Bipolar disorder: Code(s): F31.9 - Bipolar disorder, unspecified Status: Chronic Assessment and Plan: Continue seroquel. (6) GERD (gastroesophageal reflux disease): Code(s): K21.9 - Gastro-esophageal reflux disease without esophagitis Status: Chronic Assessment and Plan: Given IV protonix during her stay. (7) IBS (irritable bowel syndrome): Code(s): K58.9 - Irritable bowel syndrome without diarrhea Status: Chronic Assessment and Plan: Patient has long history of IBS with diarrhea. She is established with a turn out worker at [facility] and will follow-up. DS: Summary Hospital Course Reason for hospitalization: Abdominal pain Hospital Course: Date of admission: 01/17/2020 Date of discharge: 01/20/2020 Sylvia Chatterjee is a 54-year-old female with a past medical history significant for type 2 diabetes mellitus with complications including gastroparesis and peripheral neuropathy on a long-term insulin pump, IBS, CAD, and bipolar disorder who presented the emergency department 01/17/2020 with complaints of diffuse abdominal pain worse in the left lower quadrant, as well as nausea and vomiting. She has had episodes of diverticulitis in the past. At presentation, WBC was elevated at 11.1, H&H mildly decreased at 11.1 and 33.8 respectively, glucose 109, lipase within normal limits, and CT a/p demonstrating acute uncomplicated descending/sigmoid colonic diverticulitis. She was admitted to the hospitalist service for observation on 01/17/2020. She was made NPO with bowel rest, given IV fluids, IV Zosyn, and anti emetics. Her nausea improved as did her abdominal pain. She had somewhat loose stools. She was passin
== END 2020-01-20 14:30 | disposition home or self-care (01) | DRG 244 ==
LOC: ANHED 18:45 → ANH3MED 19:07
PROVIDERS: Family Medicine; Physician Assistant; Admitting Provider Internal Medicine; Emergency Provider Emergency Medicine; PCP Family Medicine; Visit Provider Internal Medicine
DX: K57.32 Diverticulitis of large intestine without perforation or abscess without bleeding (principal); D50.9 Iron deficiency anemia, unspecified; E11.42 Type 2 diabetes mellitus with diabetic polyneuropathy; E11.43 Type 2 diabetes mellitus with diabetic autonomic (poly)neuropathy; K31.84 Gastroparesis; E66.01 Morbid (severe) obesity due to excess calories; Z68.37 Body mass index [BMI] 37.0-37.9, adult; I25.10 Atherosclerotic heart disease of native coronary artery without angina pectoris; F31.9 Bipolar disorder, unspecified; K21.9 Gastro-esophageal reflux disease without esophagitis; K58.9 Irritable bowel syndrome, unspecified; N89.8 Other specified noninflammatory disorders of vagina; E78.5 Hyperlipidemia, unspecified; Z79.4 Long term (current) use of insulin; Z79.82 Long term (current) use of aspirin; Z87.891 Personal history of nicotine dependence
CPT/HCPCS: 36415; 74177; 80048; 80053; 81003; 82607; 82728; 82746; 83036; 83540; 83550; 83690; 85025; 85027; 85610; 85730; 94640; 96361; 96365; 96366; 96367; 96375; 96376; 99285; A9270; C9113; G0378; G0379; J0131; J1885; J2270; J2405; J2543; J2550; J7030; Q9967

== ENCOUNTER 2020-03-13 13:19 | Emergency (ER) | payer OTHER, SELFPAY ==
[2020-03-13 13:44] VITALS: BP 133/69; PULSE 83; RESP 16; TEMP 36.7; O2SAT 99
--- NOTE | 2020-03-13 13:56 | ED.FEMALEGU ---
HPI - Female Genitourinary General Chief complaint: Urogenital-Female Stated complaint: uti/head lice Time Seen by Provider: 03/13/20 13:56 Source: patient and RN notes reviewed Mode of arrival: ambulatory Limitations: no limitations History of Present Illness HPI Narrative: 55-year-old female with history of diabetes, coronary artery disease, kidney stones presents with concern for urine frequency, dysuria, urgency, suprapubic pressure. Reports symptoms started approximately 3 days ago. Reports she is not taking any qsbx-mit-okbzmsy medications for symptoms. She denies fever, malaise, body aches, back pain. Denies abdominal pain, nausea, vomiting. Denies abnormal vaginal discharge. MD elicited complaint: UTI Related Data Home Medications Medication Instructions Recorded Confirmed Byetta See Protocol SUBCUT TIDWM 01/17/20 03/13/20 albuterol sulfate 2 puff INHALATION QID PRN 01/17/20 03/13/20 aspirin 81 mg PO DAILY 01/17/20 03/13/20 atorvastatin 80 mg PO HS 01/17/20 03/13/20 budesonide-formoterol [Symbicort] 2 puff INHALATION DAILY 01/17/20 03/13/20 citalopram 40 mg PO DAILY 01/17/20 03/13/20 cromolyn 1 drp OPHTHALMIC (EYE) 4-6XD 01/17/20 03/13/20 famotidine 20 mg PO HS 01/17/20 03/13/20 fluticasone propionate 1 spray INTRANASAL DAILY 01/17/20 03/13/20 glipizide 10 mg PO BID 01/17/20 03/13/20 insulin lispro [Admelog U-100 1 sliding scale dose SUBCUT 01/17/20 03/13/20 Insulin lispro] USEASDIRECTD isosorbide mononitrate 60 mg PO DAILY 01/17/20 03/13/20 lisinopril 10 mg PO DAILY 01/17/20 03/13/20 lorazepam 1 mg PO DAILY 01/17/20 03/13/20 metformin 1,000 mg PO BID 01/17/20 03/13/20 metoclopramide HCl 5 mg PO TIDWM 01/17/20 03/13/20 metoprolol tartrate 50 mg PO Q12H 01/17/20 03/13/20 montelukast 10 mg PO DAILY 01/17/20 03/13/20 nitroglycerin 0.4 mg SUBLINGUAL Q5-15M PRN 01/17/20 03/13/20 omeprazole 20 mg PO BID 01/17/20 03/13/20 quetiapine 200 mg PO HS 01/17/20 03/13/20 sumatriptan succinate 50 mg PO DAILY PRN 01/17/20 03/13/20 trazodone 100 mg PO HS 01/17/20 03/13/20 Allergies Allergy/AdvReac Type Severity Reaction Status Date / Time No Known Allergies Allergy Verified 03/13/20 13:56 Review of Systems Review of Systems: Narrative: CONSTITUTIONAL: Denies malaise, chills, sweats, or fever. CARDIOVASCULAR: Denies chest pain, palpitations, or edema. RESPIRATORY: Denies cough or dyspnea. GASTROINTESTINAL: Denies abdominal pain, nausea, vomiting, diarrhea. GENITOURINARY: Reports dysuria, frequency, urgency, suprapubic pressure. Denies flank pain or hematuria. SKIN: Denies rash or itching. MUSCULOSKELETAL: Denies myalgia. NEUROLOGIC: Denies headache. All systems reviewed & are unremarkable except as noted in HPI and below PMFSH Past Medical History Medical History Anxiety Bipolar disorder Coronary artery disease Diabetes mellitus Gastroparesis GERD (gastroesophageal reflux disease) Hepatic steatosis Hyperlipidemia IBS (irritable bowel syndrome) Kidney stones Migraines Osteoarthritis Peripheral neuropathy PTSD (post-traumatic stress disorder) Social History Social History Smoking packs per day: 1 Smoking cigarettes per day: 20.0 Years smoked: 25 Smoking pack-years: 25.00 Smoking status: Former smoker Tobacco type: cigarettes Alcohol intake: never Substance use: former Substance use type: marijuana Gender identity (if verbalized by the patient): Female Spiritual care concerns: No Comments At time of signature, agree with nursing past medical, surgical, social and family history. There is no relevant family history pertinent to the presenting complaint Exam Narrative: Exam Narrative: GENERAL: Well-appearing, well-nourished, and in no acute distress. HEAD: Normocephalic. EYES: PERRLA, conjunctivae clear. NECK: Supple. No lymphadenopathy CHEST: Clear to auscultation. No respiratory
== END 2020-03-13 14:06 | disposition home or self-care (01) ==
PROVIDERS: Emergency Provider Nurse Practitioner; PCP Family Medicine
DX: N39.0 Urinary tract infection, site not specified (principal); F17.210 Nicotine dependence, cigarettes, uncomplicated; I25.10 Atherosclerotic heart disease of native coronary artery without angina pectoris; F41.9 Anxiety disorder, unspecified; F32.9 Major depressive disorder, single episode, unspecified; E11.42 Type 2 diabetes mellitus with diabetic polyneuropathy; E11.43 Type 2 diabetes mellitus with diabetic autonomic (poly)neuropathy; K31.84 Gastroparesis; K21.9 Gastro-esophageal reflux disease without esophagitis; E78.5 Hyperlipidemia, unspecified; M19.90 Unspecified osteoarthritis, unspecified site; F43.10 Post-traumatic stress disorder, unspecified
CPT/HCPCS: 81003; 87077; 87086; 87088; 87186; 99213; G0463

== ENCOUNTER 2020-06-15 17:42 | Emergency (ER) | payer OTHER, SELFPAY ==
[2020-06-15 17:52] VITALS: BP 152/81; PULSE 92; RESP 18; TEMP 36.6; O2SAT 100
[2020-06-15 17:59] VITALS: BP 152/81; PULSE 92; RESP 18; TEMP 36.6; O2SAT 100
--- NOTE | 2020-06-15 18:12 | ED.GENADULT ---
HPI - General Adult General Chief complaint: Dental/Oral Stated complaint: Tooth Pain Time Seen by Provider: 06/15/20 18:12 Source: patient and RN notes reviewed Mode of arrival: ambulatory Limitations: no limitations History of Present Illness HPI narrative: 55-year-old female presents with complaints of LT lower dental pain for the past 3 days. Tylenol with little relief. Denies any drainage. No fever. No jaw swelling. No neck swelling. No limitation with speaking or swallowing. Has history of dental caries. Has seen a dentist recently per patient waiting on dental surgeon. No dental trauma. No oral lesions. Exacerbating factors consist of chewing on LT side, eating and drinking cold items. No relieving factors at this time. No dentures or bridges. Tolerating liquids well. The patient reports she have not been diagnosed with COVID-19. The patient reports she is waiting for the results of a COVID-19 lab test in which she had done today due to chills, nausea, vomiting, and diarrhea. The patient reports she do not have fever, weakness, or fatigue. The patient reports she do not have a new or worsening cough or shortness of breath. Denies chest pain. The patient reports she do not have any rhinorrhea, congestion, sore throat, loss of taste, and abdominal pain. Denies recent traveling. Denies concerns for COVID-19 or exposures been home with limited outdoor exposure except for essential household needs and return home. At this time, patient is not suspected of having COVID-19. Some parts of this dictation were generated by voice recognition software and may contain typographical and/or grammatical inaccuracies. Related Data Home Medications Medication Instructions Recorded Confirmed Byetta See Protocol SUBCUT TIDWM 01/17/20 06/15/20 albuterol sulfate 2 puff INHALATION QID PRN 01/17/20 06/15/20 aspirin 81 mg PO DAILY 01/17/20 06/15/20 atorvastatin 80 mg PO HS 01/17/20 06/15/20 budesonide-formoterol [Symbicort] 2 puff INHALATION DAILY 01/17/20 06/15/20 citalopram 40 mg PO DAILY 01/17/20 06/15/20 cromolyn 1 drp OPHTHALMIC (EYE) 4-6XD 01/17/20 06/15/20 famotidine 20 mg PO HS 01/17/20 06/15/20 fluticasone propionate 1 spray INTRANASAL DAILY 01/17/20 06/15/20 glipizide 10 mg PO BID 01/17/20 06/15/20 insulin lispro [Admelog U-100 1 sliding scale dose SUBCUT 01/17/20 06/15/20 Insulin lispro] USEASDIRECTD isosorbide mononitrate 60 mg PO DAILY 01/17/20 06/15/20 lisinopril 10 mg PO DAILY 01/17/20 06/15/20 lorazepam 1 mg PO DAILY 01/17/20 06/15/20 metformin 1,000 mg PO BID 01/17/20 06/15/20 metoclopramide HCl 5 mg PO TIDWM 01/17/20 06/15/20 metoprolol tartrate 50 mg PO Q12H 01/17/20 06/15/20 montelukast 10 mg PO DAILY 01/17/20 06/15/20 nitroglycerin 0.4 mg SUBLINGUAL Q5-15M PRN 01/17/20 06/15/20 quetiapine 200 mg PO HS 01/17/20 06/15/20 sumatriptan succinate 50 mg PO DAILY PRN 01/17/20 06/15/20 trazodone 100 mg PO HS 01/17/20 06/15/20 dicyclomine 10 mg PO DAILY 06/15/20 06/15/20 gabapentin 06/15/20 liraglutide [Victoza 2-Amanuel] mg SUBCUT 06/15/20 loratadine mg 06/15/20 naproxen 500 mg PO DAILY 06/15/20 06/15/20 omeprazole 40 mg PO DAILY 06/15/20 06/15/20 ondansetron HCl 4 mg PO DAILY 06/15/20 06/15/20 Allergies Allergy/AdvReac Type Severity Reaction Status Date / Time No Known Allergies Allergy Verified 06/15/20 17:49 Review of Systems Review of Systems: Narrative: CONSTITUTIONAL: Denies fever, chills, sweats. EYES: Denies visual changes, redness, discharge. ENT: Denies rhinorrhea, congestion, sore throat, otalgia. Complains of LT lower dental pain. CARDIOVASCULAR: Denies chest pain, palpitations, edema. RESPIRATORY: Denies dyspnea, wheezing, cough. GASTROINTESTINAL: Denies abdominal pain, nausea, vomiting, diarrhea. SKIN: Denies rash or itching. MUSCULOSKELETAL: Denies acute back pain, joint pain, or myalgia. NEUROLOGIC: Denies numbness or focal weakness. PSYCHIATRIC: Denies anxiety or depression. All systems revie
[2020-06-15] MEDS: KETOROLAC (*BKC) 60 MG/2 ML VIAL IM (18:25)
== END 2020-06-15 18:55 | disposition home or self-care (01) ==
PROVIDERS: Emergency Provider Nurse Practitioner Family
DX: K02.9 Dental caries, unspecified (principal); K08.89 Other specified disorders of teeth and supporting structures; Z87.891 Personal history of nicotine dependence; I25.10 Atherosclerotic heart disease of native coronary artery without angina pectoris; E11.43 Type 2 diabetes mellitus with diabetic autonomic (poly)neuropathy; E11.42 Type 2 diabetes mellitus with diabetic polyneuropathy; K31.84 Gastroparesis; K21.9 Gastro-esophageal reflux disease without esophagitis; E78.5 Hyperlipidemia, unspecified; M19.90 Unspecified osteoarthritis, unspecified site; F41.9 Anxiety disorder, unspecified; F31.9 Bipolar disorder, unspecified; Z79.4 Long term (current) use of insulin
CPT/HCPCS: 96372; 99213; G0463; J1885

== ENCOUNTER 2020-10-29 20:00 | Emergency (ER) | payer OTHER, SELFPAY ==
--- NOTE | ~2020-10-29 | CT_ITS ---
EXAMINATION: CT abdomen pelvis w con DATE: 10/29/2020 22:57 INDICATION: Left lower quadrant pain. Nausea and vomiting. TECHNIQUE: Computed tomography (CT) of the abdomen and pelvis was performed without intravenous contr ast. The dose-length product was 1037.13 mGy-cm. Automated exposure control and iterative reconstruct ion technique were employed. COMPARISON: CT dated 01/17/2020 FINDINGS: There is a 5 mm right middle lobe nodule, image 13. Otherwise, lung bases are unremarkable. Heart size is normal. No significant pleural or pericardial effusion. There is mild thickening of th e distal esophagus. Status post cholecystectomy. The spleen, pancreas, adrenal glands and kidneys are unremarkable. There is colonic diverticulosis without evidence for diverticulitis. Normal appendix. The uterus is surgically absent. There is a small subcentimeter hypodensity of the right kidney, most likely benign cyst. No free air or free fluid. No significant vascular abnormality. No lymphadenopat hy. There is a circumaortic left renal vein. There are mild degenerative changes of the hips. No acut e osseous abnormality. IMPRESSION: 1. No acute abdominal abnormality. 2: Right middle lobe nodule measuring 5 mm, likely benign. Follow-up low dose CT chest in 12 months r ecommended. Reviewed, dictated and finalized at location A. HERIZATION OPERATIONS MANAGER IMPRESSION: 1. No acute abdominal abnormality. 2: Right middle lobe nodule measuring 5 mm, likely benign. Follow-up low dose C T chest in 12 months recommended.
--- NOTE | ~2020-10-29 | XR_ITS ---
XR chest 2V 10/29/2020 20:46 Indication: Midsternal chest pain Procedure: PA and lateral views of the chest Comparison: Comparison to multiple prior studies sequentially, with oldest reviewed study dated 02/17. Findings: Heart size normal. Atelectasis right midlung. No focal pneumonia, pleural effusion or pneum othorax. No acute osseous abnormality. Impression: 1: Subsegmental atelectasis right midlung zone. Reviewed, dictated and finalized at location A. STOR RELATIONS DIRECTOR Impression: 1: Subsegmental atelectasis right midlung zone.
[2020-10-29 20:26] VITALS: BP 119/85; PULSE 123; RESP 20; TEMP 37; O2SAT 97
--- NOTE | 2020-10-29 20:31 | ECG_ITS ---
Measurements Intervals [place] Rate: 115 P: 50 ND: 201 QRS: 189 QRSD: 94 T: 8 QT: 328 QTc: 454 Interpretive Statements SINUS TACHYCARDIA RIGHT AXIS DEVIATION BORDERLINE AV CONDUCTION DELAY POOR R WAVE PROGRESSION, CONSIDER ANTERIOR INFARCT BORDERLINE ST-T WAVE ABNORMALITY- ANT/INF LEADS ABNORMAL ECG Electronically Signed On 10-30-2020 7:10:41 DISC PAD KNOCKOUT WORKER by Ruy Gayle D.O.
[2020-10-29 21:00] LABS: Basophils Absolute Auto 0.1 K/mm3 (0.0-0.1); Basophils Percent Auto 0.9 % (0.2-1.2); Eosinophils Absolute Auto 0.7 K/mm3 (0-0.3); Eosinophils Percent Auto 5.3 % (0-4.4); Hematocrit 46.3 % (37.0-47.0); Hemoglobin 15.1 g/dL (12.0-15.0); Immature Granulocyte Absolute 0.04 K/mm3 (0.00-0.031); Immature Granulocyte Percent A 0.3 % (0-0.5); Lymphocytes Absolute Auto 4.19 K/mm3 (0.9-3.2); Lymphocytes Percent Auto 31.8 % (18.3-44.2); Mean Corpuscular HGB Conc 32.6 g/dl (32-36); Mean Corpuscular Hemoglobin 25.7 pg (26-34); Mean Corpuscular Volume 78.7 fl (80-100); Mean Platelet Volume 11.9 fl (7.4-10.4); Monocytes Absolute Auto 1.3 K/mm3 (0.1-0.6); Monocytes Percent Auto 9.5 % (2.6-8.5); Neutrophils Absolute Auto 6.9 K/mm3 (1.3-6.7); Neutrophils Percent Auto 52.2 % (45.5-73.1); Platelet Count Result 283 k/mm3 (150-375); Red Blood Count 5.88 M/mm3 (4.2-5.4); Red Cell Distribution Width 14.1 % (11.5-14.5); White Blood Count 13.2 K/mm3 (4.5-10.0)
[2020-10-29 21:10] LABS: INR 0.9; Prothrombin Time 13.2 Seconds (11.1-14.7)
[2020-10-29 21:11] LABS: Partial Thromboplastin Time 27.2 SECONDS (22.3-36.8)
[2020-10-29 21:15] LABS: Anion Gap 12 mmol/L (8-16); Blood Urea Nitrogen 13 mg/dL (7-17); Calcium 9.8 mg/dL (8.4-10.2); Carbon Dioxide 23 mmol/L (22-30); Chloride 100 mmol/L (98-107); Estimated CRCL calculation 89 ml/min; Estimated Glomerular Filt Rate > 60; Glucose 214 mg/dL (65-105); Lipase 125 U/L (23-300); Sodium 135 mmol/L (137-145)
[2020-10-29 21:50] LABS: Troponin I < 0.012 ng/mL (0.000-0.034)
[2020-10-29 22:26] VITALS: BP 147/87; PULSE 102; RESP 25; O2SAT 96
--- NOTE | 2020-10-29 22:53 | ED.ABDPAIN ---
HPI - Abdominal Pain General Chief Complaint: Abdominal Pain Stated Complaint: diverticulitis Time Seen by Provider: 10/29/20 22:35 History of Present Illness HPI narrative: generalized abdominal pain for the past few hours. Associated with nausea and vomiting, constipation. Feels like diverticulitis. No fever. She also reports chest pain, which has resolved. Related Data Home Medications Medication Instructions Recorded Confirmed Byetta See Protocol SUBCUT TIDWM 01/17/20 06/15/20 albuterol sulfate 2 puff INHALATION QID PRN 01/17/20 06/15/20 aspirin 81 mg PO DAILY 01/17/20 06/15/20 atorvastatin 80 mg PO HS 01/17/20 06/15/20 budesonide-formoterol [Symbicort] 2 puff INHALATION DAILY 01/17/20 06/15/20 citalopram 40 mg PO DAILY 01/17/20 06/15/20 cromolyn 1 drp OPHTHALMIC (EYE) 4-6XD 01/17/20 06/15/20 famotidine 20 mg PO HS 01/17/20 06/15/20 fluticasone propionate 1 spray INTRANASAL DAILY 01/17/20 06/15/20 glipizide 10 mg PO BID 01/17/20 06/15/20 insulin lispro [Admelog U-100 1 sliding scale dose SUBCUT 01/17/20 06/15/20 Insulin lispro] USEASDIRECTD isosorbide mononitrate 60 mg PO DAILY 01/17/20 06/15/20 lisinopril 10 mg PO DAILY 01/17/20 06/15/20 lorazepam 1 mg PO DAILY 01/17/20 06/15/20 metformin 1,000 mg PO BID 01/17/20 06/15/20 metoclopramide HCl 5 mg PO TIDWM 01/17/20 06/15/20 metoprolol tartrate 50 mg PO Q12H 01/17/20 06/15/20 montelukast 10 mg PO DAILY 01/17/20 06/15/20 nitroglycerin 0.4 mg SUBLINGUAL Q5-15M PRN 01/17/20 06/15/20 quetiapine 200 mg PO HS 01/17/20 06/15/20 sumatriptan succinate 50 mg PO DAILY PRN 01/17/20 06/15/20 trazodone 100 mg PO HS 01/17/20 06/15/20 dicyclomine 10 mg PO DAILY 06/15/20 06/15/20 gabapentin 06/15/20 liraglutide [Victoza 2-Amanuel] mg SUBCUT 06/15/20 loratadine mg 06/15/20 naproxen 500 mg PO DAILY 06/15/20 06/15/20 omeprazole 40 mg PO DAILY 06/15/20 06/15/20 ondansetron HCl 4 mg PO DAILY 06/15/20 06/15/20 Allergies Allergy/AdvReac Type Severity Reaction Status Date / Time No Known Allergies Allergy Verified 06/15/20 17:49 Review of Systems Review of Systems: All systems reviewed & are unremarkable except as noted in HPI and below Constitutional: Constitutional: Denies chills and Denies fever(s) Cardiovascular: Cardiovascular: Reports chest pain Respiratory: Respiratory: Denies dyspnea Gastrointestinal: Gastrointestinal: Reports abdominal pain, Reports constipation, Reports nausea and Reports vomiting Genitourinary: Genitourinary: Denies hematuria and Denies dysuria Neurologic: Denies numbness and Denies weakness [facility] Past Medical History Medical History Anxiety Bipolar disorder Coronary artery disease Diabetes mellitus Gastroparesis GERD (gastroesophageal reflux disease) Hepatic steatosis Hyperlipidemia IBS (irritable bowel syndrome) Kidney stones Migraines Osteoarthritis Peripheral neuropathy PTSD (post-traumatic stress disorder) Surgical History Surgical History History of back surgery History of cholecystectomy History of hysterectomy History of left oophorectomy History of surgery on left wrist History of tonsillectomy Family History Family History Father Hypertension Dementia Parkinsons disease Mother Hypertension Social History Social History Smoking packs per day: 1 Smoking cigarettes per day: 20.0 Years smoked: 25 Smoking pack-years: 25.00 Smoking status: Former smoker Tobacco type: cigarettes Second hand tobacco smoke exposure: No Smoking end date: 08/24/16 Alcohol intake: current Substance use: former Substance use type: marijuana Gender identity (if verbalized by the patient): Female Spiritual care concerns: No Exam Const: General: no acute distress and alert [place]
[2020-10-29] MEDS: MORPHINE SULFATE (*CRX) 2 MG/ML INJ IV PUSH (23:17)
[2020-10-30 00:03] LABS: Add Urine Microscopic? NO; Appearance Urine Clear (Clear); Bilirubin Urine Negative (Negative); Blood Urine Negative (Negative); Color Urine Straw (Yellow); Glucose Urine UA Negative (Negative); Ketones Urine Negative (Negative); Leukocyte Esterase Ur Negative LEU/UL (Negative); Nitrate Urine Negative (Negative); Protein Urine Negative (Negative); Urobilinogen Urine Negative mg/dL (<2.0)
[2020-10-30 00:05] LABS: Alanine Aminotransferase 71 U/L (4-35); Albumin Level 3.9 g/dL (3.5-5.1); Alkaline Phosphatase 104 U/L (38-126); Aspartate Amino Transferase 55 U/L (14-36); Bilirubin,Total 0.3 mg/dL (0.2-1.3)
[2020-10-30 00:08] LABS: Specific Grav Ur 1.044 (1.001-1.035)
[2020-10-30 00:13] LABS: Troponin I < 0.012 ng/mL (0.000-0.034)
[2020-10-30 00:55] VITALS: BP 136/76; PULSE 91; RESP 20; O2SAT 99
== END 2020-10-30 00:56 | disposition home or self-care (01) ==
PROVIDERS: Emergency Provider Emergency Medicine; PCP Family Medicine
DX: R10.84 Generalized abdominal pain (principal); E11.43 Type 2 diabetes mellitus with diabetic autonomic (poly)neuropathy; E11.42 Type 2 diabetes mellitus with diabetic polyneuropathy; K31.84 Gastroparesis; I25.10 Atherosclerotic heart disease of native coronary artery without angina pectoris; K21.9 Gastro-esophageal reflux disease without esophagitis; E78.5 Hyperlipidemia, unspecified; K58.9 Irritable bowel syndrome, unspecified; Z87.442 Personal history of urinary calculi; M19.90 Unspecified osteoarthritis, unspecified site; F41.9 Anxiety disorder, unspecified; F31.9 Bipolar disorder, unspecified; F43.10 Post-traumatic stress disorder, unspecified; Z79.4 Long term (current) use of insulin; Z87.891 Personal history of nicotine dependence; R00.0 Tachycardia, unspecified; R94.31 Abnormal electrocardiogram [ECG] [EKG]; R91.1 Solitary pulmonary nodule
CPT/HCPCS: 36415; 71046; 74177; 80048; 80076; 81003; 83690; 84484; 85025; 85610; 85730; 93005; 96374; 99284; J2270; Q9967

== ENCOUNTER 2021-04-03 13:46 | Emergency (ER) | payer OTHER, SELFPAY ==
[2021-04-03 13:55] VITALS: BP 110/77; PULSE 74; RESP 16; O2SAT 98
--- NOTE | 2021-04-03 14:17 | ED.FEMALEGU ---
HPI - Female Genitourinary General Chief complaint: Urogenital-Female Stated complaint: uti/yeast infection Time Seen by Provider: 04/03/21 14:18 Source: patient and RN notes reviewed Mode of arrival: ambulatory Limitations: no limitations History of Present Illness HPI Narrative: 56-year-old female with history of peripheral neuropathy, bipolar disorder, coronary artery disease, diabetes, GERD, anemia, diverticulitis presents with concern for urinary tract infection. Reports 1 week history of frequency, urgency, burning, dribbling. Reports drinking cranberry juice with no resolution. Reports history of urinary tract infections. She denies flank pain, hematuria, fever, nausea, vomiting. MD elicited complaint: UTI Related Data Home Medications Medication Instructions Recorded Confirmed albuterol sulfate 2 puff INHALATION QID PRN 01/17/20 04/03/21 aspirin 81 mg PO DAILY 01/17/20 04/03/21 atorvastatin 80 mg PO HS 01/17/20 04/03/21 budesonide-formoterol [Symbicort] 2 puff INHALATION DAILY 01/17/20 04/03/21 citalopram 40 mg PO DAILY 01/17/20 04/03/21 cromolyn 1 drp OPHTHALMIC (EYE) 4-6XD 01/17/20 04/03/21 famotidine 20 mg PO HS 01/17/20 04/03/21 fluticasone propionate 1 spray INTRANASAL DAILY 01/17/20 04/03/21 glipizide 10 mg PO BID 01/17/20 04/03/21 insulin lispro [Admelog U-100 1 sliding scale dose SUBCUT 01/17/20 04/03/21 Insulin lispro] USEASDIRECTD isosorbide mononitrate 60 mg PO DAILY 01/17/20 04/03/21 lisinopril 10 mg PO DAILY 01/17/20 04/03/21 lorazepam 1 mg PO DAILY 01/17/20 04/03/21 metformin 1,000 mg PO BID 01/17/20 04/03/21 metoclopramide HCl 5 mg PO TIDWM 01/17/20 04/03/21 metoprolol tartrate 50 mg PO Q12H 01/17/20 04/03/21 montelukast 10 mg PO DAILY 01/17/20 04/03/21 nitroglycerin 0.4 mg SUBLINGUAL Q5-15M PRN 01/17/20 04/03/21 quetiapine 200 mg PO HS 01/17/20 04/03/21 sumatriptan succinate 50 mg PO DAILY PRN 01/17/20 04/03/21 trazodone 100 mg PO HS 01/17/20 04/03/21 dicyclomine 10 mg PO DAILY 06/15/20 04/03/21 gabapentin 600 mg PO BID 06/15/20 04/03/21 liraglutide [Victoza 2-Amanuel] 0.6 mg SUBCUT DIRECTED 06/15/20 04/03/21 loratadine 10 mg PO DAILY 06/15/20 04/03/21 naproxen 500 mg PO DAILY 06/15/20 04/03/21 Allergies Allergy/AdvReac Type Severity Reaction Status Date / Time No Known Allergies Allergy Verified 04/03/21 14:05 Review of Systems Review of Systems: CONSTITUTIONAL: Denies malaise, chills, sweats, or fever. CARDIOVASCULAR: Denies chest pain, palpitations, or edema. RESPIRATORY: Denies cough or dyspnea. GASTROINTESTINAL: Denies abdominal pain, nausea, vomiting, diarrhea. Reports suprapubic discomfort GENITOURINARY: Reports frequency, urgency, dysuria, dribbling. Denies hematuria. SKIN: Reports mild vaginal irritation MUSCULOSKELETAL: Denies back pain or myalgia. All systems reviewed & are unremarkable except as noted in HPI and below PMFSH Past Medical History Medical History (Updated 04/03/21 @ 14:23 by Dianne Salazar NP) Anxiety Bipolar disorder Coronary artery disease Diabetes mellitus Gastroparesis GERD (gastroesophageal reflux disease) Hepatic steatosis Hyperlipidemia IBS (irritable bowel syndrome) Kidney stones Migraines Osteoarthritis Peripheral neuropathy PTSD (post-traumatic stress disorder) Surgical History Surgical History History of back surgery History of cholecystectomy History of hysterectomy History of left oophorectomy History of surgery on left wrist History of tonsillectomy Family History Family History Father Hypertension Dementia Parkinsons disease Mother Hypertension Social History Social History Smoking packs per day: 1 Smoking cigarettes per day: 20.0 Years smoked: 25 Smoking pack-years: 25.00 Smoking status: Former smoker Tobacco type: cigarettes Se
== END 2021-04-03 14:28 | disposition home or self-care (01) ==
PROVIDERS: Emergency Provider Nurse Practitioner
DX: R35.0 Frequency of micturition (principal); R30.0 Dysuria; R39.15 Urgency of urination; I25.10 Atherosclerotic heart disease of native coronary artery without angina pectoris; E11.42 Type 2 diabetes mellitus with diabetic polyneuropathy; E11.43 Type 2 diabetes mellitus with diabetic autonomic (poly)neuropathy; K31.84 Gastroparesis; K21.9 Gastro-esophageal reflux disease without esophagitis; K76.0 Fatty (change of) liver, not elsewhere classified; M19.90 Unspecified osteoarthritis, unspecified site; Z87.442 Personal history of urinary calculi; Z87.891 Personal history of nicotine dependence; Z79.82 Long term (current) use of aspirin
CPT/HCPCS: 81003; 87077; 87086; 87088; 87186; 99213; G0463

== ENCOUNTER 2021-06-26 21:26 | Emergency (ER) | payer OTHER, SELFPAY ==
--- NOTE | ~2021-06-26 | XR_ITS ---
XR chest 2V DATE: 06/26/2021 22:12 INDICATION: Cough, shortness of breath, chest tightness for 3 weeks. TECHNIQUE: PA and lateral views COMPARISON: 10/29/2020 2 view chest FINDINGS: Normal heart size. No hilar or mediastinal enlargement. Chronic discoid scarring in the right mid lung. No pulmonary infiltrate or consolidation, pleural eff usion or pulmonary vascular congestion or pneumothorax. Status post cholecystectomy. IMPRESSION: Chronic mild discoid scarring in the right midlung; no active cardiopulmonary disease or significant change since 10/30/2019 Reviewed, dictated and finalized at location A. IMPRESSION: Chronic mild discoid scarring in the right midlung; no active cardi opulmonary disease or significant change since 10/30/2019
--- NOTE | 2021-06-26 21:29 | ECG_ITS ---
Measurements Intervals [place] Rate: 83 P: 41 ND: 220 QRS: -60 QRSD: 96 T: -1 QT: 378 QTc: 445 Interpretive Statements SINUS RHYTHM WITH FIRST DEGREE AV BLOCK INCOMPLETE RIGHT BUNDLE BRANCH BLOCK LOW QRS VOLTAGE IN PRECORDIAL LEADS POOR R WAVE PROGRESSION, ANTERIOR LEADS INFERIOR INFARCT, AGE INDETERMINATE BASELINE WANDER- I, AVL, V4-V6 ABNORMAL ECG Electronically Signed On 06-27-2021 6:35:31 CDT by Ruy Gayle D.O.
[2021-06-26 21:43] VITALS: BP 148/71; PULSE 88; RESP 18; TEMP 36; O2SAT 98
[2021-06-26 22:22] LABS: Basophils Absolute Auto 0.1 K/mm3 (0.0-0.1); Basophils Percent Auto 1.1 % (0.2-1.2); Eosinophils Absolute Auto 0.5 K/mm3 (0-0.3); Eosinophils Percent Auto 6.1 % (0-4.4); Hematocrit 40.6 % (37.0-47.0); Hemoglobin 13.4 g/dL (12.0-15.0); Immature Granulocyte Absolute 0.02 K/mm3 (0.00-0.031); Immature Granulocyte Percent A 0.2 % (0-0.5); Lymphocytes Absolute Auto 2.83 K/mm3 (0.9-3.2); Lymphocytes Percent Auto 34.1 % (18.3-44.2); Mean Corpuscular Hemoglobin 25.7 pg (26-34); Mean Corpuscular Volume 77.9 fl (80-100); Mean Platelet Volume 11.5 fl (7.4-10.4); Monocytes Absolute Auto 0.9 K/mm3 (0.1-0.6); Monocytes Percent Auto 10.7 % (2.6-8.5); Neutrophils Percent Auto 47.8 % (45.5-73.1); Platelet Count Result 263 k/mm3 (150-375); Red Blood Count 5.21 M/mm3 (4.2-5.4); Red Cell Distribution Width 13.7 % (11.5-14.5); White Blood Count 8.3 K/mm3 (4.5-10.0)
[2021-06-26 23:00] VITALS: BP 124/76; PULSE 79; RESP 15; TEMP 37.4; O2SAT 100
[2021-06-26 23:09] LABS: Anion Gap 10 mmol/L (8-16); Blood Urea Nitrogen 13 mg/dL (7-17); Calcium 9.3 mg/dL (8.4-10.2); Carbon Dioxide 23 mmol/L (22-30); Chloride 105 mmol/L (98-107); Estimated CRCL calculation 91 ml/min; Estimated Glomerular Filt Rate > 60; Glucose 249 mg/dL (65-110); Potassium 4.1 mmol/L (3.4-5.0); Sodium 138 mmol/L (137-145)
--- NOTE | 2021-06-26 23:10 | ED.SOB ---
HPI - SOB/Dyspnea General Chief Complaint: Shortness of Breath/Dyspnea Stated Complaint: sob Time Seen by Provider: 06/26/21 22:36 Source: patient Mode of arrival: ambulatory Limitations: no limitations History of Present Illness HPI Narrative: 56-year-old with a history of asthma, diabetes, hypertension here with complaints of nasal congestion, cough which is nonproductive and short of breath for last 2 days. She presently denies any fever or chills. Patient states that she had a fever few days ago for the past 1 day. She states her throat is sore and both ears are clogged. MD elicited complaint: cough Pertinent past history: asthma Onset (ago): day(s) (3) Timing: constant Severity: mild Exacerbating factors: nothing Relieving factors: nothing Known history of: asthma Associated symptoms: cough Related Data Home oxygen amount: none Home Medications Medication Instructions Recorded Confirmed albuterol sulfate 2 puff INHALATION QID PRN 01/17/20 04/03/21 aspirin 81 mg PO DAILY 01/17/20 04/03/21 atorvastatin 80 mg PO HS 01/17/20 04/03/21 budesonide-formoterol [Symbicort] 2 puff INHALATION DAILY 01/17/20 04/03/21 citalopram 40 mg PO DAILY 01/17/20 04/03/21 cromolyn 1 drp OPHTHALMIC (EYE) 4-6XD 01/17/20 04/03/21 famotidine 20 mg PO HS 01/17/20 04/03/21 fluticasone propionate 1 spray INTRANASAL DAILY 01/17/20 04/03/21 glipizide 10 mg PO BID 01/17/20 04/03/21 insulin lispro [Admelog U-100 1 sliding scale dose SUBCUT 01/17/20 04/03/21 Insulin lispro] USEASDIRECTD isosorbide mononitrate 60 mg PO DAILY 01/17/20 04/03/21 lisinopril 10 mg PO DAILY 01/17/20 04/03/21 lorazepam 1 mg PO DAILY 01/17/20 04/03/21 metformin 1,000 mg PO BID 01/17/20 04/03/21 metoclopramide HCl 5 mg PO TIDWM 01/17/20 04/03/21 metoprolol tartrate 50 mg PO Q12H 01/17/20 04/03/21 montelukast 10 mg PO DAILY 01/17/20 04/03/21 nitroglycerin 0.4 mg SUBLINGUAL Q5-15M PRN 01/17/20 04/03/21 quetiapine 200 mg PO HS 01/17/20 04/03/21 sumatriptan succinate 50 mg PO DAILY PRN 01/17/20 04/03/21 trazodone 100 mg PO HS 01/17/20 04/03/21 dicyclomine 10 mg PO DAILY 06/15/20 04/03/21 gabapentin 600 mg PO BID 06/15/20 04/03/21 liraglutide [Victoza 2-Amanuel] 0.6 mg SUBCUT DIRECTED 06/15/20 04/03/21 loratadine 10 mg PO DAILY 06/15/20 04/03/21 naproxen 500 mg PO DAILY 06/15/20 04/03/21 Allergies Allergy/AdvReac Type Severity Reaction Status Date / Time No Known Allergies Allergy Verified 06/26/21 23:04 Review of Systems Review of Systems: All systems reviewed & are unremarkable except as noted in HPI and below Constitutional: Constitutional: Reports no additional constitutional complaints Eyes: Eyes: Reports no additional eye complaints ENT: Reports system reviewed and no additional complaints, except as documented Cardiovascular: Cardiovascular: Reports no additional cardiovascular complaints Respiratory: Respiratory: Reports as per HPI Gastrointestinal: Gastrointestinal: Reports no additional gastrointestinal complaints Musculoskeletal: Musculoskeletal: Reports no additional musculoskeletal complaints Integumentary/Breasts: Skin/Breast: Reports system reviewed and no additional complaints, except as docu Neurologic: Reports system reviewed and no additional complaints, except as documented [facility] Past Medical History Medical History (Updated 06/26/21 @ 23:16 by Bob Villa MD) Anxiety Bipolar disorder Coronary artery disease Diabetes mellitus Gastroparesis GERD (gastroesophageal reflux disease) Hepatic steatosis Hyperlipidemia IBS (irritable bowel syndrome) Kidney stones Migraines Osteoarthritis Peripheral neuropathy PTSD (post-traumatic stress disorder) Surgical History Surgical History History of back surgery History of cholecystectomy History of hysterectomy History of left oophorectomy History of surgery on left wrist History of tonsillectomy Family History Family History (Reviewed
[2021-06-26 23:34] VITALS: PULSE 84
[2021-06-26 23:49] VITALS: BP 132/96; PULSE 88; RESP 20; O2SAT 98
--- NOTE | 2021-06-26 23:51 | PC.NURSE ---
erp aware of chest pain pt ok for discharge
== END 2021-06-26 23:51 | disposition home or self-care (01) ==
LOC: ANHED 23:29
PROVIDERS: Emergency Provider Family Medicine
DX: B34.9 Viral infection, unspecified (principal); F41.9 Anxiety disorder, unspecified; F31.9 Bipolar disorder, unspecified; E11.9 Type 2 diabetes mellitus without complications; Z79.4 Long term (current) use of insulin; K21.9 Gastro-esophageal reflux disease without esophagitis; K76.0 Fatty (change of) liver, not elsewhere classified
CPT/HCPCS: 36415; 71046; 80048; 85025; 93005; 99284

== ENCOUNTER 2021-07-03 12:19 | Emergency (ER) | payer OTHER, SELFPAY ==
--- NOTE | ~2021-07-03 | XR_ITS ---
XR finger 3rd RT min 2V 07/03/2021 14:45 Indication: Trauma to the tip of the third finger Procedure: 4 views right third finger Comparison: 03/17/2015 Findings: Mild polyarticular osteoarthritis. Osteopenia. No fracture or traumatic malalignment. No fo reign body. Impression: 1: No acute fracture. Reviewed, dictated and finalized at location A. EMAN Impression: 1: No acute fracture.
[2021-07-03 12:30] VITALS: BP 140/86; PULSE 97; RESP 17; TEMP 37; O2SAT 97
--- NOTE | 2021-07-03 14:31 | ED.UPPEXIN ---
HPI - Extremity Injury (Upper) General Chief Complaint: Extremity Injury, Upper <Helena Benitez PA-C - Last Filed: 07/03/21 15:24> Stated Complaint: cut finger on blood thinners <TOMYM Arriaga Last Filed: 07/03/21 15:24> Time Seen by Provider: 07/03/21 12:46 <Helena Benitez PA-C - Last Filed: 07/03/21 15:24> Source: patient <TOMMY Arriaga Last Filed: 07/03/21 15:24> Mode of arrival: ambulatory <TOMMY Arriaga Last Filed: 07/03/21 15:24> Limitations: no limitations <Helena Benitez PA-C - Last Filed: 07/03/21 15:24> History of Present Illness HPI narrative: This is a 56 year old female that presents to the ER for laceration to the right third finger sustained just prior to arrival. Reports she was cutting meat and the knife slipped. She is not up to date on tetanus. Denies decreased ROM or numbness. <Helena Benitez PA-C - Last Filed: 07/03/21 15:24> Related Data Home Medications: Home Medications Medication Instructions Recorded Confirmed albuterol sulfate 2 puff INHALATION QID PRN 01/17/20 04/03/21 aspirin 81 mg PO DAILY 01/17/20 04/03/21 atorvastatin 80 mg PO HS 01/17/20 04/03/21 budesonide-formoterol [Symbicort] 2 puff INHALATION DAILY 01/17/20 04/03/21 citalopram 40 mg PO DAILY 01/17/20 04/03/21 cromolyn 1 drp OPHTHALMIC (EYE) 4-6XD 01/17/20 04/03/21 famotidine 20 mg PO HS 01/17/20 04/03/21 fluticasone propionate 1 spray INTRANASAL DAILY 01/17/20 04/03/21 glipizide 10 mg PO BID 01/17/20 04/03/21 insulin lispro [Admelog U-100 1 sliding scale dose SUBCUT 01/17/20 04/03/21 Insulin lispro] USEASDIRECTD isosorbide mononitrate 60 mg PO DAILY 01/17/20 04/03/21 lisinopril 10 mg PO DAILY 01/17/20 04/03/21 lorazepam 1 mg PO DAILY 01/17/20 04/03/21 metformin 1,000 mg PO BID 01/17/20 04/03/21 metoclopramide HCl 5 mg PO TIDWM 01/17/20 04/03/21 metoprolol tartrate 50 mg PO Q12H 01/17/20 04/03/21 montelukast 10 mg PO DAILY 01/17/20 04/03/21 nitroglycerin 0.4 mg SUBLINGUAL Q5-15M PRN 01/17/20 04/03/21 quetiapine 200 mg PO HS 01/17/20 04/03/21 sumatriptan succinate 50 mg PO DAILY PRN 01/17/20 04/03/21 trazodone 100 mg PO HS 01/17/20 04/03/21 dicyclomine 10 mg PO DAILY 06/15/20 04/03/21 gabapentin 600 mg PO BID 06/15/20 04/03/21 liraglutide [Victoza 2-Amanuel] 0.6 mg SUBCUT DIRECTED 06/15/20 04/03/21 loratadine 10 mg PO DAILY 06/15/20 04/03/21 naproxen 500 mg PO DAILY 06/15/20 04/03/21 <Helena Benitez PA-C - Last Filed: 07/03/21 15:24> Allergies/Adverse Reactions: Allergies Allergy/AdvReac Type Severity Reaction Status Date / Time No Known Allergies Allergy Verified 06/26/21 23:04 <Helena Benitez PA-C - Last Filed: 07/03/21 15:24> Review of Systems Review of Systems: CONSTITUTIONAL: Denies fever SKIN: Reports laceration MUSCULOSKELETAL: Denies joint pain, or myalgia. NEUROLOGIC: Denies numbness <Helena Benitez PA-C - Last Filed: 07/03/21 15:24> All systems reviewed & are unremarkable except as noted in HPI and below <Helena Benitez PA-C - Last Filed: 07/03/21 15:24> [facility] Past Medical History Medical History: Medical History (Updated 07/03/21 @ 15:21 by Helena Benitez PA-C) Anxiety Bipolar disorder Coronary artery disease Diabetes mellitus Gastroparesis GERD (gastroesophageal reflux disease) Hepatic steatosis Hyperlipidemia IBS (irritable bowel syndrome) Kidney stones Migraines Osteoarthritis Peripheral neuropathy PTSD (post-traumatic stress disorder) <Helena Benitez PA-C - Last Filed: 07/03/21 15:24> Surgical History Surgical History: Surgical History History of back surgery History of cholecystectomy History of hysterectomy History of left oophorectomy History of surgery on left wrist History of tonsillectomy <Helena Benitez PA-C - Last Filed: 07/03/21 15:24> Family History Family History: Family History (Reviewed 06/26/21 @ 2
[2021-07-03] MEDS: HYDROcodone/acetaminophen (*CRX) 5-325 MG TABLET 1 TAB PO (15:40)
[2021-07-03] MEDS: TETANUS,DIPHTHERIA,AC PERTUSSIS ADULT (0.5 ML) BOOSTRIX IM (15:41)
[2021-07-03 15:50] VITALS: BP 145/89; PULSE 80; RESP 18; TEMP 36.3; O2SAT 94
== END 2021-07-03 15:50 | disposition home or self-care (01) ==
PROVIDERS: Emergency Provider Emergency Medicine; PCP Family Medicine
DX: S61.212A Laceration without foreign body of right middle finger without damage to nail, initial encounter (principal); Z79.01 Long term (current) use of anticoagulants; Z87.891 Personal history of nicotine dependence; F41.9 Anxiety disorder, unspecified; F31.9 Bipolar disorder, unspecified; I25.10 Atherosclerotic heart disease of native coronary artery without angina pectoris; E11.9 Type 2 diabetes mellitus without complications; K21.9 Gastro-esophageal reflux disease without esophagitis; M19.90 Unspecified osteoarthritis, unspecified site; K76.0 Fatty (change of) liver, not elsewhere classified; Z79.4 Long term (current) use of insulin; W26.0XXA Contact with knife, initial encounter; Z23 Encounter for immunization
CPT/HCPCS: 12001; 73140; 90471; 90715; 99283; A9270

== ENCOUNTER 2022-02-06 23:01 | Emergency (ER) | payer OTHER, SELFPAY ==
--- NOTE | ~2022-02-06 | CT_ITS ---
EXAMINATION: CT abdomen pelvis w con DATE: 02/07/2022 04:00 INDICATION: Left lower quadrant abdominal pain and leukocytosis. TECHNIQUE: Computed tomography (CT) of the abdomen and pelvis was performed with 100 mL Omnipaque-300 intravenous contrast. Automated exposure control and iterative reconstruction technique were employe d. The dose-length product was 1240.17 mGy-cm. COMPARISON: 10/29/2020 and 01/17/2020 FINDINGS: Mild discoid atelectasis at the right middle lobe and lingula with additional mild dependent atelecta sis in the bilateral lower lobes. 5 mm likely benign noncalcified granuloma in the right middle lobe nodule, unchanged since 01/17/2020. Heart size is normal. Atherosclerotic coronary artery calcificatio n. No pericardial or pleural effusion. Small sliding-type hiatal hernia with wall thickening the dist al esophagus suggestive of esophagitis such as in the setting of reflux. Cholecystectomy clips at gal lbladder fossa. Liver, spleen, pancreas and bilateral adrenal glands are normal. There are couple sub centimeter low-attenuation likely cyst in the right kidney which are too small to definitively charac terize. Left kidney is normal. Mild scattered diverticulosis. There is mild inflammatory scarring yulia rounding a diverticulum at the distal descending colon consistent with diverticulitis. No abscess or free intraperitoneal gas. Small bowel and appendix are normal. Partially decompressed bladder is unre markable. The uterus is not identified and has likely been surgically resected. No pathologically enl arged abdominal or pelvic lymphadenopathy. Mild scattered degenerative skeletal changes. IMPRESSION: 1. Radiographically uncomplicated diverticulitis at the distal descending colon. 2. Small sliding-type hiatal hernia with wall thickening the distal esophagus likely related to reflu x esophagitis. Given that this has been present on prior imaging would consider endoscopy for further evaluation. Reviewed, dictated and finalized at location A. IMPRESSION: 1. Radiographically uncomplicated diverticulitis at the distal descending colon . 2. Small sliding-type hiatal hernia with wall thickening the distal esophagus l ikely related to reflux esophagitis. Given that this has been present on prior imaging would consider endoscopy for further evaluation.
[2022-02-06 23:06] VITALS: BP 102/63; PULSE 51; RESP 18; TEMP 36.8; O2SAT 96
--- NOTE | 2022-02-07 00:16 | ED.ABDPAIN ---
HPI - Abdominal Pain General Chief Complaint: Abdominal Pain Stated Complaint: abd pain Time Seen by Provider: 02/07/22 00:16 History of Present Illness HPI narrative: Patient is a 57-year-old female with history of insulin-dependent diabetes, IBS, known diverticular disease, presenting to the emergency department for evaluation of left lower quadrant abdominal pain. Pain is located in the left lower quadrant described as aching, sharp in nature. Patient with associated nausea, no vomiting. She reports associated loose stools without blood or mucus present. She denies significant constipation. She reports mild abdominal distention. No flank pain or urinary symptoms. Patient denies chest pain, cough, dyspnea. Denies fever, chills, diaphoresis. Previous records reviewed, patient with previous admission for diverticulitis, admitted secondary to refractory abdominal pain, nausea, vomiting. Related Data Home Medications Medication Instructions Recorded Confirmed albuterol sulfate 90 mcg/actuation 2 puff inhalation QID PRN SOB 01/17/20 04/03/21 aerosol inhaler aspirin 81 mg chewable tablet 81 mg PO DAILY 01/17/20 04/03/21 atorvastatin 80 mg tablet 80 mg PO HS 01/17/20 04/03/21 budesonide-formoterol HFA 80 2 puff inhalation DAILY 01/17/20 04/03/21 mcg-4.5 mcg/actuation aerosol inhaler (Symbicort) citalopram 40 mg tablet 40 mg PO DAILY 01/17/20 04/03/21 cromolyn 4 % eye drops 1 drp ophthalmic (eye) 4-6XD 01/17/20 04/03/21 famotidine 20 mg tablet 20 mg PO 01/17/20 04/03/21 fluticasone propionate 50 1 spray intranasal DAILY 01/17/20 04/03/21 mcg/actuation nasal spray,suspension glipizide 10 mg tablet 10 mg PO BID 01/17/20 04/03/21 insulin lispro 100 unit/mL 1 sliding scale dose subcut 01/17/20 04/03/21 subcutaneous solution (Admelog USEASDIRECTD U-100 Insulin lispro) isosorbide mononitrate 60 mg 60 mg PO DAILY 01/17/20 04/03/21 tablet,extended release 24 hr lisinopril 10 mg tablet 10 mg PO DAILY 01/17/20 04/03/21 lorazepam 1 mg tablet 1 mg PO DAILY 01/17/20 04/03/21 metformin 1,000 mg tablet 1,000 mg PO BID 01/17/20 04/03/21 metoclopramide HCl 5 mg tablet 5 mg PO TIDWM 01/17/20 04/03/21 metoprolol tartrate 50 mg tablet 50 mg PO Q12H 01/17/20 04/03/21 montelukast 10 mg tablet 10 mg PO DAILY 01/17/20 04/03/21 nitroglycerin 0.4 mg sublingual 0.4 mg sublingual Q5-15M PRN Chest 01/17/20 04/03/21 tablet Pain quetiapine 200 mg tablet 200 mg PO HS 01/17/20 04/03/21 sumatriptan succinate 25 mg tablet 50 mg PO DAILY PRN Migranes 01/17/20 04/03/21 trazodone 100 mg tablet 100 mg PO HS 01/17/20 04/03/21 dicyclomine 10 mg capsule 10 mg PO DAILY 06/15/20 04/03/21 gabapentin 600 mg tablet 600 mg PO BID 06/15/20 04/03/21 liraglutide 0.6 mg/0.1 mL (18 mg/3 0.6 mg subcut DIRECTED 06/15/20 04/03/21 mL) subcutaneous pen injector (FusionStormza 2-Amanuel) loratadine 10 mg tablet 10 mg PO DAILY 06/15/20 04/03/21 naproxen 500 mg tablet 500 mg PO DAILY 06/15/20 04/03/21 Allergies Allergy/AdvReac Type Severity Reaction Status Date / Time No Known Allergies Allergy Verified 06/26/21 23:04 Review of Systems Review of Systems: CONSTITUTIONAL: Denies fever, chills, or sweats. EYES: Denies visual changes, redness, or discharge. ENT: Denies rhinorrhea, congestion, sore throat, or otalgia. CARDIOVASCULAR: Denies chest pain, palpitations, or edema. RESPIRATORY: Denies cough or dyspnea. GASTROINTESTINAL: Reports abdominal pain, nausea, loose stools GENITOURINARY: Denies dysuria or hematuria. SKIN: Denies rash or itching. MUSCULOSKELETAL: Denies back pain, joint pain, or myalgia. NEUROLOGIC: Denies headache, numbness, or weakness. [facility] Past Medical History Medical History (Updated 02/07/22 @ 04:41 by Pau Echeverria MD) Anxiety Bipolar disorder Coronary artery disease Diabetes mellitus Gastroparesis GERD (gastroesophageal reflux disease) Hepatic steatosis Hyperlipidemia IBS (irritable bowel syndrome) Kidney stones Migraines
[2022-02-07 00:21] LABS: Basophils Absolute Auto 0.1 K/mm3 (0.0-0.1); Basophils Percent Auto 0.5 % (0.2-1.2); Eosinophils Absolute Auto 0.4 K/mm3 (0-0.3); Hematocrit 39.2 % (37.0-47.0); Hemoglobin 12.8 g/dL (12.0-15.0); Immature Granulocyte Absolute 0.06 K/mm3 (0.00-0.031); Immature Granulocyte Percent A 0.5 % (0-0.5); Lymphocytes Absolute Auto 2.92 K/mm3 (0.9-3.2); Lymphocytes Percent Auto 21.9 % (18.3-44.2); Mean Corpuscular HGB Conc 32.7 g/dl (32-36); Mean Corpuscular Hemoglobin 25.9 pg (26-34); Mean Corpuscular Volume 79.2 fl (80-100); Mean Platelet Volume 11.5 fl (7.4-10.4); Monocytes Absolute Auto 1.1 K/mm3 (0.1-0.6); Monocytes Percent Auto 8.3 % (2.6-8.5); Neutrophils Absolute Auto 8.8 K/mm3 (1.3-6.7); Neutrophils Percent Auto 65.8 % (45.5-73.1); Platelet Count Result 218 k/mm3 (150-375); Red Blood Count 4.95 M/mm3 (4.2-5.4); Red Cell Distribution Width 14.4 % (11.5-14.5); White Blood Count 13.3 K/mm3 (4.5-10.0)
[2022-02-07 00:32] LABS: Alanine Aminotransferase 40 U/L (6-35); Albumin Level 4.2 g/dL (3.5-5.1); Alkaline Phosphatase 96 U/L (38-126); Anion Gap 6 mmol/L (8-16); Aspartate Amino Transferase 27 U/L (14-36); Bilirubin,Total 0.8 mg/dL (0.2-1.3); Blood Urea Nitrogen 20 mg/dL (7-17); Calcium 8.7 mg/dL (8.4-10.2); Carbon Dioxide 27 mmol/L (22-30); Chloride 98 mmol/L (98-107); Estimated Glomerular Filt Rate > 60; Glucose 283 mg/dL (65-110); Lipase 254 U/L (23-300); Potassium 4.4 mmol/L (3.4-5.0); Sodium 131 mmol/L (137-145)
--- NOTE | 2022-02-07 00:45 | ECG_ITS ---
Measurements Intervals [place] Rate: 59 P: 49 MD: 228 QRS: -36 QRSD: 101 T: 5 QT: 462 QTc: 459 Interpretive Statements SINUS BRADYCARDIA WITH FIRST DEGREE AV BLOCK LEFT AXIS DEVIATION [QRS AXIS < -30] LOW QRS VOLTAGE IN PRECORDIAL LEADS [QRS DEFLECTION < 1.0 mV IN CHEST LEADS] COMPARED TO ECG 06/26/2021 21:55:15 HEART RATE IS REDUCED, NO OTHER CHANGE Electronically Signed On 02-07-2022 14:37:57 CDT by Osmin Barry M.D.
[2022-02-07] MEDS: ONDANSETRON INJ 4 MG/2 ML VIAL IV PUSH (00:55)
[2022-02-07] MEDS: MORPHINE SULFATE (*CRX) 4 MG/ML INJ IV PUSH (00:55)
[2022-02-07] MEDS: SODIUM CHLORIDE 0.9% IV 1,000 ML 999 ML IV CONT (00:55)
[2022-02-07 00:59] VITALS: BP 104/56; PULSE 83; RESP 18; O2SAT 99
[2022-02-07 01:15] VITALS: BP 117/54; PULSE 62; RESP 18; O2SAT 95
[2022-02-07] MEDS: metroNIDAZOLE 500 MG/ISO 100ML 500 MG/100 ML BAG 100 MG IVPB (01:25)
[2022-02-07] MEDS: HYDROmorphone HCL INJ (*CRX) 1 MG/ML SYR (02:26)
[2022-02-07] MEDS: CIPROFLOXACIN 400 MG/D5W 200ML 200 ML 200 MG IVPB (02:35)
[2022-02-07 02:37] VITALS: BP 96/52; PULSE 61; RESP 16; O2SAT 94
[2022-02-07 04:41] VITALS: BP 116/67; PULSE 69; RESP 18; O2SAT 97
[2022-02-07 04:47] LABS: Mucus Urine Rare /lpf; RBC Urine 0-2 /hpf (0-2); Squamous Epithelial Cell Urine Few /hpf (Few); WBC Urine 0-3 /hpf
[2022-02-07 04:49] LABS: Add Urine Microscopic? YES; Appearance Urine Clear (Clear); Bilirubin Urine Negative (Negative); Blood Urine Negative (Negative); Color Urine Yellow (Yellow); Glucose Urine UA 2+ mg/dL (Negative); Ketones Urine Trace mg/dL (Negative); Leukocyte Esterase Ur Negative LEU/UL (Negative); Nitrate Urine Negative (Negative); Protein Urine Negative (Negative); Urobilinogen Urine 0.2 mg/dL (<2.0); pH Urine 5.5 (5.0-9.0)
== END 2022-02-07 03:51 | disposition home or self-care (01) ==
PROVIDERS: Emergency Provider Emergency Medicine
DX: K57.32 Diverticulitis of large intestine without perforation or abscess without bleeding (principal); I25.10 Atherosclerotic heart disease of native coronary artery without angina pectoris; E11.42 Type 2 diabetes mellitus with diabetic polyneuropathy; E11.43 Type 2 diabetes mellitus with diabetic autonomic (poly)neuropathy; K31.84 Gastroparesis; K58.9 Irritable bowel syndrome, unspecified; M19.90 Unspecified osteoarthritis, unspecified site; F41.9 Anxiety disorder, unspecified; F43.10 Post-traumatic stress disorder, unspecified; F31.9 Bipolar disorder, unspecified; Z87.442 Personal history of urinary calculi; Z79.4 Long term (current) use of insulin; Z79.84 Long term (current) use of oral hypoglycemic drugs; Z79.82 Long term (current) use of aspirin; Z90.721 Acquired absence of ovaries, unilateral; Z87.891 Personal history of nicotine dependence
CPT/HCPCS: 36415; 74177; 80053; 81001; 81025; 83690; 85025; 93005; 96361; 96365; 96367; 96375; 99284; J0744; J1170; J2270; J2405; J7030; Q9967

== ENCOUNTER 2022-04-03 22:56 | Emergency (ER) | payer OTHER, SELFPAY ==
[2022-04-03 22:59] VITALS: BP 138/73; PULSE 59; RESP 20; TEMP 35.9; O2SAT 99
--- NOTE | 2022-04-03 23:52 | ED.EAR ---
HPI - Ear Problem General Chief complaint: Ear Stated complaint: Ear Pain, Dizziness Time Seen by Provider: 04/03/22 23:34 History of Present Illness HPI Narrative: 57-year-old female presents emergency room secondary a lot of nasal congestion and pressure in her ears. She a lot of pressure in her left ear. States her equilibrium feels a little off as result of it. Been going on for couple days. Denies any chills or fevers. No chest pain. No shortness of breath. No history of prior ear infections. She does have a multitude of medical problems including small vessel cardiac disease and diabetes mellitus. Related Data Home Medications Medication Instructions Recorded Confirmed albuterol sulfate 90 mcg/actuation 2 puff inhalation QID PRN SOB 01/17/20 04/03/21 aerosol inhaler aspirin 81 mg chewable tablet 81 mg PO DAILY 01/17/20 04/03/21 atorvastatin 80 mg tablet 80 mg PO HS 01/17/20 04/03/21 budesonide-formoterol HFA 80 2 puff inhalation DAILY 01/17/20 04/03/21 mcg-4.5 mcg/actuation aerosol inhaler (Symbicort) citalopram 40 mg tablet 40 mg PO DAILY 01/17/20 04/03/21 cromolyn 4 % eye drops 1 drp ophthalmic (eye) 4-6XD 01/17/20 04/03/21 famotidine 20 mg tablet 20 mg PO HS 01/17/20 04/03/21 fluticasone propionate 50 1 spray intranasal DAILY 01/17/20 04/03/21 mcg/actuation nasal spray,suspension glipizide 10 mg tablet 10 mg PO BID 01/17/20 04/03/21 insulin lispro 100 unit/mL 1 sliding scale dose subcut 01/17/20 04/03/21 subcutaneous solution (Admelog USEASDIRECTD U-100 Insulin lispro) isosorbide mononitrate 60 mg 60 mg PO DAILY 01/17/20 04/03/21 tablet,extended release 24 hr lisinopril 10 mg tablet 10 mg PO DAILY 01/17/20 04/03/21 lorazepam 1 mg tablet 1 mg PO DAILY 01/17/20 04/03/21 metformin 1,000 mg tablet 1,000 mg PO BID 01/17/20 04/03/21 metoclopramide HCl 5 mg tablet 5 mg PO TIDWM 01/17/20 04/03/21 metoprolol tartrate 50 mg tablet 50 mg PO Q12H 01/17/20 04/03/21 montelukast 10 mg tablet 10 mg PO DAILY 01/17/20 04/03/21 nitroglycerin 0.4 mg sublingual 0.4 mg sublingual Q5-15M PRN Chest 01/17/20 04/03/21 tablet Pain quetiapine 200 mg tablet 200 mg PO HS 01/17/20 04/03/21 sumatriptan succinate 25 mg tablet 50 mg PO DAILY PRN Migranes 01/17/20 04/03/21 trazodone 100 mg tablet 100 mg PO HS 01/17/20 04/03/21 dicyclomine 10 mg capsule 10 mg PO DAILY 06/15/20 04/03/21 gabapentin 600 mg tablet 600 mg PO BID 06/15/20 04/03/21 liraglutide 0.6 mg/0.1 mL (18 mg/3 0.6 mg subcut DIRECTED 06/15/20 04/03/21 mL) subcutaneous pen injector ([employer] 2-Amanuel) loratadine 10 mg tablet 10 mg PO DAILY 06/15/20 04/03/21 naproxen 500 mg tablet 500 mg PO DAILY 06/15/20 04/03/21 Allergies Allergy/AdvReac Type Severity Reaction Status Date / Time No Known Allergies Allergy Verified 04/03/22 23:10 Review of Systems Review of Systems: CONSTITUTIONAL: Denies fever, chills, or sweats. EYES: Denies visual changes, redness, or discharge. ENT: Complaining of nasal congestion and rhinorrhea with pressure in her ears left greater than the right CARDIOVASCULAR: Denies chest pain, palpitations, or edema. RESPIRATORY: Denies cough or dyspnea. GASTROINTESTINAL: Denies abdominal pain, nausea, vomiting, or diarrhea. GENITOURINARY: Denies dysuria or hematuria. SKIN: Denies rash or itching. MUSCULOSKELETAL: Denies back pain, joint pain, or myalgia. NEUROLOGIC: Denies headache, numbness, or weakness. PSYCHIATRIC: Denies anxiety or depression. [facility] Past Medical History Medical History Anxiety Bipolar disorder Coronary artery disease Diabetes mellitus Gastroparesis GERD (gastroesophageal reflux disease) Hepatic steatosis Hyperlipidemia IBS (irritable bowel syndrome) Kidney stones Migraines Osteoarthritis Peripheral neuropathy PTSD (post-traumatic stress disorder) Surgical History Surgical History History of back surgery
[2022-04-04 00:06] VITALS: BP 133/77; PULSE 63; RESP 18; O2SAT 100
== END 2022-04-04 00:07 | disposition home or self-care (01) ==
LOC: ANHED 23:56
PROVIDERS: Emergency Provider Emergency Medicine
DX: H65.02 Acute serous otitis media, left ear (principal); F41.9 Anxiety disorder, unspecified; F31.9 Bipolar disorder, unspecified; I25.10 Atherosclerotic heart disease of native coronary artery without angina pectoris; E11.9 Type 2 diabetes mellitus without complications; K21.9 Gastro-esophageal reflux disease without esophagitis; E78.5 Hyperlipidemia, unspecified; Z87.442 Personal history of urinary calculi; M19.90 Unspecified osteoarthritis, unspecified site
CPT/HCPCS: 99283

== ENCOUNTER 2022-05-19 00:47 | Observation (INO) | payer OTHER, SELFPAY ==
[2022-05-19] VITALS (38 sets, daily range): BP systolic 96–134; BP diastolic 52–99; PULSE 67–84; RESP 10–21; TEMP 36.4–36.8; O2SAT 93–99; BMI 34.0
--- NOTE | ~2022-05-19 | CT_ITS ---
EXAMINATION: CTA chest PE protocol DATE: 05/19/2022 09:55 INDICATION: Chest pain. TECHNIQUE: Computed tomography angiography (CTA) of the chest was performed with 100 mL Omnipaque-350 intravenous contrast timed to evaluate the pulmonary arteries. Coronal maximum intensity projection 3D-reconstructions were created by the technologist. Automated exposure control and iterative reconst ruction technique were employed. The dose-length product was 716.15 mGy-cm. COMPARISON: Chest CT 04/13/2019 FINDINGS: There is mild atelectasis in the lungs. There is a 5 mm nodule in right middle lobe without change, likely benign. No pleural effusion. There is left atrial enlargement of the heart. There is no pulmonary embolus. There is mild aortic atherosclerosis. No aneurysm or dissection. There is a sma ll sliding hiatal hernia. There are changes of cholecystectomy. There is mild thoracic spondylosis. IMPRESSION: 1. No pulmonary embolus. 2. Mild aortic atherosclerosis. No aneurysm or dissection. 3. Small sliding hiatal hernia. Reviewed, dictated and finalized at location A.
--- NOTE | ~2022-05-19 | XR_ITS ---
EXAMINATION: XR chest 2V DATE: 05/19/2022 01:20 INDICATION: Chest pain. TECHNIQUE: Frontal and lateral views of the chest were obtained. COMPARISON: Chest 2 views 06/26/2021 FINDINGS: There is mild atelectasis in the mid and lower lung zones. No pleural effusion or pneumotho rax. The heart size is normal. Surgical clips in the right upper quadrant are likely from cholecystec natalee. IMPRESSION: 1. Mild atelectasis in the mid and lower lung zones. Reviewed, dictated and finalized at location A.
--- NOTE | 2022-05-19 00:48 | ECG_ITS ---
Measurements Intervals [place] Rate: 78 P: 42 [place]: 201 QRS: -57 QRSD: 94 T: -3 QT: 387 QTc: 443 Interpretive Statements SINUS RHYTHM LEFT AXIS DEVIATION BORDERLINE AV CONDUCTION DELAY INCOMPLETE RIGHT BUNDLE BRANCH BLOCK LOW QRS VOLTAGE IN PRECORDIAL LEADS INFERIOR INFARCT, AGE INDETERMINATE BORDERLINE T WAVE ABNORMALITY- ANT/INF LEADS BASELINE ARTIFACT- I, II, III, AVR, V6 ABNORMAL ECG COMPARED TO ECG 02/07/2022 01:29:41 HEART RATE HAS INCREASED Electronically Signed On 05-19-2022 6:42:32 CDT by Ruy Gayle D.O.
--- NOTE | 2022-05-19 01:02 | ED.GENADULT ---
HPI - General Adult General Chief complaint: Chest Pain Stated complaint: chest pain Time Seen by Provider: 05/19/22 00:54 History of Present Illness HPI narrative: Patient 57-year-old female who presents the emergency department with chief complaint of chest discomfort. Patient reports that she has history of an CT and has had small vessel disease that was not treatable with stenting. Patient reports her last cath was done at [facility] and reports that she is followed currently by a [facility] patient states that to the last couple days she is just not been feeling that well and tonight started having midsternal chest pain that radiated to her arms patient states the pain was somewhat improved with sublingual nitro but states she still having discomfort. Patient reports that she did not have any diaphoresis reports she has some nausea and reports she also has chills. Related Data Home Medications Medication Instructions Recorded Confirmed albuterol sulfate 90 mcg/actuation 2 puff inhalation QID PRN SOB 01/17/20 04/03/21 aerosol inhaler aspirin 81 mg chewable tablet 81 mg PO DAILY 01/17/20 04/03/21 atorvastatin 80 mg tablet 80 mg PO 01/17/20 04/03/21 budesonide-formoterol HFA 80 2 puff inhalation DAILY 01/17/20 04/03/21 mcg-4.5 mcg/actuation aerosol inhaler (Symbicort) citalopram 40 mg tablet 40 mg PO DAILY 01/17/20 04/03/21 cromolyn 4 % eye drops 1 drp ophthalmic (eye) 4-6XD 01/17/20 04/03/21 famotidine 20 mg tablet 20 mg PO 01/17/20 04/03/21 fluticasone propionate 50 1 spray intranasal DAILY 01/17/20 04/03/21 mcg/actuation nasal spray,suspension glipizide 10 mg tablet 10 mg PO BID 01/17/20 04/03/21 insulin lispro 100 unit/mL 1 sliding scale dose subcut 01/17/20 04/03/21 subcutaneous solution (Admelog USEASDIRECTD U-100 Insulin lispro) isosorbide mononitrate 60 mg 60 mg PO DAILY 01/17/20 04/03/21 tablet,extended release 24 hr lisinopril 10 mg tablet 10 mg PO DAILY 01/17/20 04/03/21 lorazepam 1 mg tablet 1 mg PO DAILY 01/17/20 04/03/21 metformin 1,000 mg tablet 1,000 mg PO BID 01/17/20 04/03/21 metoclopramide HCl 5 mg tablet 5 mg PO TIDWM 01/17/20 04/03/21 metoprolol tartrate 50 mg tablet 50 mg PO Q12H 01/17/20 04/03/21 montelukast 10 mg tablet 10 mg PO DAILY 01/17/20 04/03/21 nitroglycerin 0.4 mg sublingual 0.4 mg sublingual Q5-15M PRN Chest 01/17/20 04/03/21 tablet Pain quetiapine 200 mg tablet 200 mg PO HS 01/17/20 04/03/21 sumatriptan succinate 25 mg tablet 50 mg PO DAILY PRN Migranes 01/17/20 04/03/21 trazodone 100 mg tablet 100 mg PO HS 01/17/20 04/03/21 dicyclomine 10 mg capsule 10 mg PO DAILY 06/15/20 04/03/21 gabapentin 600 mg tablet 600 mg PO BID 06/15/20 04/03/21 liraglutide 0.6 mg/0.1 mL (18 mg/3 0.6 mg subcut DIRECTED 06/15/20 04/03/21 mL) subcutaneous pen injector ([employer] 2-Amanuel) loratadine 10 mg tablet 10 mg PO DAILY 06/15/20 04/03/21 naproxen 500 mg tablet 500 mg PO DAILY 06/15/20 04/03/21 Allergies Allergy/AdvReac Type Severity Reaction Status Date / Time No Known Allergies Allergy Verified 04/03/22 23:10 Review of Systems Review of Systems: A 10 system review of systems was completed on the patient and is negative except for what is stated in the HPI. Nursing and ancillary documentation was reviewed. [facility] Past Medical History Medical History Anxiety Bipolar disorder Coronary artery disease Diabetes mellitus Gastroparesis GERD (gastroesophageal reflux disease) Hepatic steatosis Hyperlipidemia IBS (irritable bowel syndrome) Kidney stones Migraines Osteoarthritis Peripheral neuropathy PTSD (post-traumatic stress disorder) Surgical History Surgical History History of back surgery History of cholecystectomy History of hysterectomy History of left oophorectomy History of surgery on left wrist History of tonsillectomy F
[2022-05-19 01:03] LABS: Hematocrit 37.1 % (37.0-47.0); Hemoglobin 12.2 g/dL (12.0-15.0); Mean Corpuscular HGB Conc 32.9 g/dl (32-36); Mean Corpuscular Volume 79.1 fl (80-100); Mean Platelet Volume 11.2 fl (7.4-10.4); Platelet Count Result 246 k/mm3 (150-375); Red Blood Count 4.69 M/mm3 (4.2-5.4); Red Cell Distribution Width 14.7 % (11.5-14.5); White Blood Count 8.7 K/mm3 (4.5-10.0)
[2022-05-19 01:13] LABS: Alanine Aminotransferase 36 U/L (6-35); Albumin Level 4.5 g/dL (3.5-5.1); Alkaline Phosphatase 75 U/L (38-126); Anion Gap 7 mmol/L (8-16); Aspartate Amino Transferase 51 U/L (14-36); Blood Urea Nitrogen 11 mg/dL (7-17); Calcium 9.3 mg/dL (8.4-10.2); Carbon Dioxide 25 mmol/L (22-30); Chloride 102 mmol/L (98-107); Estimated CRCL calculation 104 ml/min; Estimated Glomerular Filt Rate > 60; Glucose 123 mg/dL (65-110); Lipase 124 U/L (23-300); Potassium 4.1 mmol/L (3.4-5.0); Sodium 134 mmol/L (137-145)
[2022-05-19 01:14] LABS: INR 1.2; Prothrombin Time 14.2 Seconds (11.1-14.7)
[2022-05-19 01:15] LABS: Partial Thromboplastin Time 28.7 SECONDS (22.3-36.8)
[2022-05-19 01:22] LABS: Band Neutrophils Percent 2 % (0-6); Eosinophils Absolute Manual 0.08 K/mm3 (0.02-0.5); Eosinophils Percent Manual 1 % (0-4); Lymphocytes Absolute Manual 3.39 K/mm3 (1.1-4.5); Monocytes Absolute Manual 0.52 K/mm3 (0.1-0.90); Monocytes Percent Manual 6 % (3-9); Neutrophils Absolute Manual 4.69 K/mm3 (1.7-7.2); Neutrophils Percent Manual 52 % (46-73); Nucleated Red Blood Cells 1 %; Total Cells Counted 100; Troponin I 0.014 ng/mL (0.000-0.034)
[2022-05-19 01:23] LABS: Atypical Lymphocytes Present; Platelet Estimate Adequate (Adequate); Poikilocytosis 1+ (NORMAL); Schistocytes 1+ (NORMAL)
[2022-05-19 01:24] LABS: Acanthocytes 1+ (NORMAL); Anisocytosis 1+ (NORMAL); Burr Cells 1+ (NORMAL); Hypersegmented Neutrophils Present; Microcytosis 1+ (NORMAL)
[2022-05-19] MEDS: MORPHINE SULFATE (*CRX) 4 MG/ML INJ IV PUSH ×2 (01:34→04:01)
[2022-05-19] MEDS: NITROGLYCERIN SL 0.4 MG TABLET SUBLINGUAL (01:34)
[2022-05-19 02:10] LABS: SARS-CoV-2 RNA PCR Negative
[2022-05-19 04:15] LABS: Troponin I < 0.012 ng/mL (0.000-0.034)
--- NOTE | 2022-05-19 05:58 | PC.NURSE ---
This patient, Sylvia Chatterjee, was admitted to Intensive Care Unit-3. Patient/family oriented to hospital policies and general routines including ID bracelet, bed and alarms, visiting hours, pain management, procedures, bathroom and other care routines, personal items, smoking policy, room service/diet, and visiting hours. Information on how to activate the Rapid Response Team has been discussed. Patient/Family are encouraged to report perceived risks to care and to ask questions if they do not understand what they are told or what they should do.
--- NOTE | 2022-05-19 07:20 | PC.NURSE ---
Compounding And Finishing Supervisor reminded of 0648 troponin 6 hour draw being due. Patient reports CP is unchanged since arrival to ED. Requests morphine.
[2022-05-19 07:58] LABS: Troponin I < 0.012 ng/mL (0.000-0.034)
--- NOTE | 2022-05-19 08:29 | PM.IMHP ---
H&P: HPI History of Present Illness Date/Time: 05/19/22 08:29 Chief Complaint: Chest pain Narrative: This is a 49-year-old female who presented to the ED after started to chest pain and after 10 in intensity radiated to both of the arm on feeling shaky weak radiated to her back while she was at work in the evening last night at [employer]. She sat down in the office to see if this will go way. She took nitro x2 there without much relief. She then came to the ER for further evaluation. She reports the pain is mid sternum in location. She was given some nitro here in the ER along with aspirin and also IV morphine with some relief but she continues to have chest discomfort in the midsternal area. She denies any cough or fever chills. She denies any abdominal pain. There was some nausea but no vomiting. EKG done in the ER with no acute ST-T changes compared to previous EKG no new changes were noted. Her vitals were stable her troponin were negative x3. She has a history of TX in the past and feels like the chest pain was exactly similar to that. In her previous catheterization she was found to have small vessel disease that was not amenable with stenting. She follows with [facility]. She also has history of GERD had had EGD in the past. She also had a stress test about 5 6 months ago which is reported to be negative. Review of Systems Review of Systems: - CONSTITUTIONAL: Denies weight loss, fever and chills. - HEENT: Denies changes in vision and hearing - RESPIRATORY: Denies SOB and cough. - CV: Denies palpitations and reports CP. - GI: Denies abdominal pain, nausea, vomiting and diarrhea. - : Denies dysuria and urinary frequency. - MSK: Denies myalgia and joint pain. - SKIN: Denies rash and pruritus. - NEUROLOGICAL: Denies headache and syncope. - PSYCHIATRIC: Denies recent changes in mood. Denies anxiety and depression. [facility] Past Medical History Medical History (Updated 05/19/22 @ 08:35 by Colten Mast MD) Anxiety Bipolar disorder Coronary artery disease Diabetes mellitus Gastroparesis GERD (gastroesophageal reflux disease) Hepatic steatosis Hyperlipidemia IBS (irritable bowel syndrome) Kidney stones Migraines Osteoarthritis Peripheral neuropathy PTSD (post-traumatic stress disorder) Surgical History Surgical History History of back surgery History of cholecystectomy History of hysterectomy History of left oophorectomy History of surgery on left wrist History of tonsillectomy Family History Family History Father Hypertension Dementia Parkinsons disease Mother Hypertension Social History Social History Smoking packs per day: 1 Smoking cigarettes per day: 20.0 Years smoked: 25 Smoking pack-years: 25.00 Smoking status: Former smoker Tobacco type: cigarettes Second hand tobacco smoke exposure: No Alcohol intake: never Substance use: current Substance use type: marijuana Gender identity (if verbalized by the patient): Female Spiritual care concerns: No Meds Home Medications and Allergies Home Medications Medication Instructions Recorded Confirmed Type albuterol sulfate 90 mcg/actuation 2 puff inhalation QID PRN SOB 01/17/20 05/19/22 History aerosol inhaler aspirin 81 mg chewable tablet 81 mg PO DAILY 01/17/20 05/19/22 History atorvastatin 80 mg tablet 80 mg PO HS 01/17/20 05/19/22 History budesonide-formoterol HFA 80 2 puff inhalation DAILY 01/17/20 05/19/22 History mcg-4.5 mcg/actuation aerosol inhaler (Symbicort) citalopram 40 mg tablet 40 mg PO DAILY 01/17/20 05/19/22 History cromolyn 4 % eye drops 1 drp ophthalmic (eye) 4-6XD 01/17/20 05/19/22 History famotidine 20 mg tablet 20 mg PO HS 01/17/20 05/19/22 History
[2022-05-19] MEDS: HOME MEDICATION INSULIN 1 EACH XX (09:06)
[2022-05-19] MEDS: metFORMIN HCL 500 MG TABLET 1000 MG PO (09:07)
[2022-05-19] MEDS: ENOXAPARIN 40 MG/0.4 ML SYRINGE SUB-Q (09:08)
[2022-05-19] MEDS: ASPIRIN 81 MG CHEWABLE TABLET PO (09:08)
[2022-05-19] MEDS: GABAPENTIN 300 MG CAPSULE 600 MG PO ×2 (09:09→11:47)
[2022-05-19] MEDS: FLUTICASONE PROPIONATE 0.05% NA SPR 16 GM BTL (*BKC) 1 SPRAY NASAL (09:09)
[2022-05-19] MEDS: NAPROXEN 500 MG TABLET PO (09:10)
[2022-05-19] MEDS: PANTOPRAZOLE 40 MG TABLET PO (09:10)
[2022-05-19] MEDS: METOPROLOL TARTRATE 50 MG TAB PO (09:11)
[2022-05-19] MEDS: MONTELUKAST SODIUM 10 MG TABLET PO (09:11)
[2022-05-19] MEDS: ISOSORBIDE MONONITRATE 60 MG TAB.ER.24H PO (09:12)
[2022-05-19] MEDS: PIOGLITAZONE HCL 15 MG TAB PO (09:12)
[2022-05-19] MEDS: LORATADINE/PSEUDOEPHEDRINE (*CRX) 10/240 MG TABLET ER 24 HR 1 TAB PO (09:16)
[2022-05-19] MEDS: LORazepam (*CRX) 1 MG TABLET PO (09:16)
--- NOTE | 2022-05-19 10:45 | PM.CNCAR ---
Assessment and Plan Assessment and plan (1) Atypical chest pain: Code(s): R07.89 - Other chest pain Status: Acute (2) Hyperlipidemia: Code(s): E78.5 - Hyperlipidemia, unspecified Status: Chronic (3) GERD (gastroesophageal reflux disease): Code(s): K21.9 - Gastro-esophageal reflux disease without esophagitis Status: Chronic (4) Coronary artery disease: Code(s): I25.10 - Atherosclerotic heart disease of [place] coronary artery without angina pectoris Status: Chronic (5) Diabetes mellitus: Qualifiers: Diabetes mellitus detention insulin use: with extermination supervisor use Diabetes mellitus complication status: with neurologic complications Diabetes mellitus complication detail: with polyneuropathy Code(s): E11.9 - Type 2 diabetes mellitus without complications Status: Chronic Plan Troponins negative x 3, ECG without ischemic changes. Has very reproducible chest wall pain upon palpation of chest, suspect component of musculoskeletal. Continue ASA, statin, Imdur and beta edward. Consider non-cardiac etiology for chest pain. Patient to follow up with her primary epic manager upon discharge. History of Present Illness History of Present Illness Consult date/time: 05/19/22 10:45 Requesting physician: Colten Mast MD Consult reason: chest pain Reason For Visit: chest pain Narrative: Patient is a 57-year-old female with a history of CAD (follows with [facility]; reportedly has small vessel disease not amenable for intervention), diabetes, hyperlipidemia, GERD who presented with chest pain that began yesterday evening. Located centrally in chest. No associated symptoms. Has been ongoing since then. No associated with exertion. ECGs without acute ischemic changes. Troponins negative x 3. CTA negative for PE. Review of Systems Review of Systems: All systems reviewed & are unremarkable except as noted in HPI and below (HPI) [facility] Past Medical History Medical History Anxiety Bipolar disorder Coronary artery disease Diabetes mellitus Gastroparesis GERD (gastroesophageal reflux disease) Hepatic steatosis Hyperlipidemia IBS (irritable bowel syndrome) Kidney stones Migraines Osteoarthritis Peripheral neuropathy PTSD (post-traumatic stress disorder) Surgical History Surgical History History of back surgery History of cholecystectomy History of hysterectomy History of left oophorectomy History of surgery on left wrist History of tonsillectomy Family History Family History Father Hypertension Dementia Parkinsons disease Mother Hypertension Social History Social History Smoking packs per day: 1 Smoking cigarettes per day: 20.0 Years smoked: 25 Smoking pack-years: 25.00 Smoking status: Former smoker Tobacco type: cigarettes Second hand tobacco smoke exposure: No Alcohol intake: never Substance use: current Substance use type: marijuana Gender identity (if verbalized by the patient): Female Spiritual care concerns: No Meds Home Medications and Allergies Home Medications Medication Instructions Recorded Confirmed Type albuterol sulfate 90 mcg/actuation 2 puff inhalation QID PRN SOB 01/17/20 05/19/22 History aerosol inhaler aspirin 81 mg chewable tablet 81 mg PO DAILY 01/17/20 05/19/22 History atorvastatin 80 mg tablet 80 mg PO HS 01/17/20 05/19/22 History budesonide-formoterol HFA 80 2 puff inhalation DAILY 01/17/20 05/19/22 History mcg-4.5 mcg/actuation aerosol inhaler (Symbicort) citalopram 40 mg tablet 40 mg PO DAILY 01/17/20 05/19/22 History cromolyn 4 % eye drops 1 drp ophthalmic (eye) 4-6XD 01/17/20 05/19/22 History famotidine 20 mg tablet 20 mg PO HS 01/17/20 05/19/22 His
[2022-05-19 11:43] LABS: Glucose Point of Care 42 mg/dl (65-105)
[2022-05-19] MEDS: CITALOPRAM HYDROBROMIDE 20 MG TABLET 40 MG PO (11:46)
[2022-05-19] MEDS: lisinopriL 10 MG TABLET PO (11:47)
[2022-05-19 12:01] LABS: Glucose Point of Care 79 mg/dl (65-105)
--- NOTE | 2022-05-19 13:47 | PM.DS ---
DS: Admitting Diagnosis Discharge Date Admitting Diagnosis chest pain DS: Discharge Diagnosis Discharge Diagnosis (1) Atypical chest pain: Code(s): R07.89 - Other chest pain Status: Acute (2) Diabetes mellitus: Qualifiers: Diabetes mellitus mcc insulin use: with mcc use Diabetes mellitus complication status: with neurologic complications Diabetes mellitus complication detail: with polyneuropathy Code(s): E11.9 - Type 2 diabetes mellitus without complications Status: Chronic (3) Coronary artery disease: Code(s): I25.10 - Atherosclerotic heart disease of [place] coronary artery without angina pectoris Status: Chronic (4) Bipolar disorder: Code(s): F31.9 - Bipolar disorder, unspecified Status: Chronic (5) GERD (gastroesophageal reflux disease): Code(s): K21.9 - Gastro-esophageal reflux disease without esophagitis Status: Chronic (6) Hyperlipidemia: Code(s): E78.5 - Hyperlipidemia, unspecified Status: Chronic (7) Peripheral neuropathy: Qualifiers: Peripheral neuropathy type: polyneuropathy, unspecified Qualified Code(s): G62.9 - Polyneuropathy, unspecified Code(s): G62.9 - Polyneuropathy, unspecified Status: Chronic DS: Summary Hospital Course Hospital Course: # atypical chest pain: Chest wall tenderness is present most likely musculoskeletal in origin. Troponin x3 is negative. EKG unremarkable with no new changes. CT came back negative for PE or dissection. She does have history of small-vessel coronary artery disease not amenable to stenting. Cardiology consulted. Suggested more atypical musculoskeletal chest pain. Symptomatic treatment has suggested # diabetes mellitus type 2 on insulin pump. Which was continued during the hospital stay # GERD: Continue PPI # peripheral neuropathy # coronary artery disease small-vessel CAD not amenable for stenting. On aspirin and atorvastatin metoprolol which will be continued # anxiety/bipolar disorder continue same # hypertension # hyperlipidemia # DVT prophylaxis Lovenox # code status full code Time Spent with Patient Time attestation: Total time spent providing and/or coordinating discharge services: 35 minutes Exam Narrative: GENERAL: Well-appearing, well-nourished, and in no acute distress. HEAD: Normocephalic, atraumatic. EYES: PERRLA and EOMI. ENT: Nares clear, no rhinorrhea or epistaxis.? Mucous membranes moist. NECK: Supple. CHEST: Clear to auscultation.? No respiratory distress. Tenderness on palpation to the parasternal area HEART: Regular rate and rhythm.? No murmur heard.? Normal peripheral pulses. ABDOMEN: Soft, nontender, nondistended, normal active bowel sounds. EXTREMITIES: Normal range of motion.? No edema. SKIN: Warm, dry, no rash. NEURO: No focal deficits.? Alert and oriented x3. PSYCH: Normal mood and affect. DS: Data Data Completed and Pending Labs on day of discharge: Labs from last 24 hours 05/19/22 05/19/22 05/19/22 11:59 11:34 07:29 WBC RBC Hgb Hct MCV MCH MCHC RDW Plt Count MPV Immature Gran % (Auto) Neut % (Auto) Lymph % (Auto) [place] % (Auto) Eos % (Auto) Baso % (Auto) Lymph # (Auto) [place] # (Auto) Eos # (Auto) Baso # (Auto) Abs Immat Gran (auto) Absolute Neuts (auto) Absolute Nucleated RBC Total Counted Neutrophils % (Manual) Band Neutrophils % Lymphocytes % (Manual) Monocytes % (Manual) Eosinophils % (Manual) Nucleated RBC % Abs Neuts (Manual) Abs Lymphs (Manual) Abs Monocytes (Manual) Absolute Eos (Manual) Nucleated RBCs Hypersegmented Neuts Atypical Lymphocytes Platelet Estimate Poikilocytosis Anisocytosis Microcytosis Toyin Cells Acanthocytes (Spur) Schistocytes PT INR APTT Sodium Potassium Chloride Carbon Mauricio
== END 2022-05-19 15:18 | disposition home or self-care (01) ==
LOC: ANHED 01:26 → ANHICU 05:37
PROVIDERS: Admitting Provider Internal Medicine; Emergency Provider Emergency Medicine; Visit Provider Internal Medicine
DX: R07.89 Other chest pain (principal); I25.2 Old myocardial infarction; E11.42 Type 2 diabetes mellitus with diabetic polyneuropathy; I25.10 Atherosclerotic heart disease of native coronary artery without angina pectoris; E11.43 Type 2 diabetes mellitus with diabetic autonomic (poly)neuropathy; K31.84 Gastroparesis; E78.5 Hyperlipidemia, unspecified; K76.0 Fatty (change of) liver, not elsewhere classified; F41.9 Anxiety disorder, unspecified; F31.9 Bipolar disorder, unspecified; K21.9 Gastro-esophageal reflux disease without esophagitis; K58.9 Irritable bowel syndrome, unspecified; M19.90 Unspecified osteoarthritis, unspecified site; F43.10 Post-traumatic stress disorder, unspecified; Z87.891 Personal history of nicotine dependence; Z95.5 Presence of coronary angioplasty implant and graft; Z79.82 Long term (current) use of aspirin; Z79.51 Long term (current) use of inhaled steroids; Z79.84 Long term (current) use of oral hypoglycemic drugs; Z79.4 Long term (current) use of insulin; Z96.41 Presence of insulin pump (external) (internal); Z20.822 Contact with and (suspected) exposure to COVID-19
CPT/HCPCS: 36415; 71046; 71275; 80053; 82948; 83690; 84484; 85025; 85610; 85730; 93005; 96372; 96374; 96376; 99285; A9270; C9803; G0378; G0379; J1650; J2270; Q9967; U0003; U0005

== ENCOUNTER 2023-01-16 22:01 | Emergency (ER) | payer OTHER, SELFPAY ==
[2023-01-16] VITALS (11 sets, daily range): BP systolic 84–101; BP diastolic 52–57; PULSE 53–61; RESP 10–19; TEMP 36.6; O2SAT 96–100
--- NOTE | ~2023-01-16 | CT_ITS ---
EXAMINATION: CTA chest PE protocol DATE: 01/16/2023 22:54 INDICATION: Chest pain. Shortness of breath. TECHNIQUE: Computed tomography angiography (CTA) of the chest was performed with 100 mL Omnipaque-350 intravenous contrast timed to evaluate the pulmonary arteries. Coronal maximum intensity projection 3D-reconstructions were created by the technologist. Automated exposure control and iterative reconst ruction technique were employed. The dose-length product was 546.80 mGy-cm. COMPARISON: Chest CT 05/19/22 FINDINGS: The lungs demonstrate mild atelectasis. No pleural effusion. There is a 3 mm nodule in left upper lobe, likely benign. No pleural effusion. The heart size is normal. No pericardial effusion. T here are coronary artery calcifications. There is no pulmonary embolus. There are changes of cholecys tectomy. There is mild thoracic spondylosis. IMPRESSION: 1. No pulmonary embolus. Reviewed, dictated and finalized at location E. IMPRESSION: 1. No pulmonary embolus.
--- NOTE | ~2023-01-16 | XR_ITS ---
EXAMINATION: XR chest 2V DATE: 01/16/2023 22:34 INDICATION: Chest pain. TECHNIQUE: Frontal and lateral views of the chest were obtained. COMPARISON: Chest 2 views 05/19/2022, chest CT 05/19/2022 FINDINGS: There is mild atelectasis in right midlung zone and left lower lung zone. No pleural effusi on or pneumothorax. The heart size is normal. Surgical clips in the right upper quadrant are likely f rom cholecystectomy. IMPRESSION: 1. Mild atelectasis in right midlung zone and left lower lung zone. Reviewed, dictated and finalized at location E.
--- NOTE | 2023-01-16 22:02 | ECG_ITS ---
Measurements Intervals [place] Rate: 57 P: 39 [place]: 232 QRS: -30 QRSD: 99 T: -7 QT: 438 QTc: 430 Interpretive Statements SINUS BRADYCARDIA WITH FIRST DEGREE AV BLOCK INCOMPLETE RIGHT BUNDLE BRANCH BLOCK LOW QRS VOLTAGE IN PRECORDIAL LEADS BORDERLINE R WAVE PROGRESSION, ANTERIOR LEADS INFERIOR INFARCT, AGE INDETERMINATE BORDERLINE T WAVE ABNORMALITY- ANTEROLATERAL LEADS ABNORMAL ECG COMPARED TO ECG 05/19/2022 00:53:38 SINUS BRADYCARDIA NOW PRESENT FIRST DEGREE AV BLOCK NOW PRESENT Electronically Signed On 01-17-2023 8:15:19 CDT by Ruy Gayle D.O.
[2023-01-16 22:15] LABS: Basophils Absolute Auto 0.1 K/mm3 (0.0-0.1); Basophils Percent Auto 0.9 % (0.2-1.2); Eosinophils Absolute Auto 0.6 K/mm3 (0-0.3); Eosinophils Percent Auto 4.9 % (0-4.4); Hematocrit 34.6 % (37.0-47.0); Hemoglobin 11.3 g/dL (12.0-15.0); Immature Granulocyte Absolute 0.07 K/mm3 (0.00-0.031); Immature Granulocyte Percent A 0.6 % (0-0.5); Lymphocytes Absolute Auto 3.08 K/mm3 (0.9-3.2); Lymphocytes Percent Auto 27.1 % (18.3-44.2); Mean Corpuscular HGB Conc 32.7 g/dl (32-36); Mean Corpuscular Hemoglobin 26.1 pg (26-34); Mean Corpuscular Volume 79.9 fl (80-100); Mean Platelet Volume 11.4 fl (7.4-10.4); Monocytes Absolute Auto 0.9 K/mm3 (0.1-0.6); Monocytes Percent Auto 8.3 % (2.6-8.5); Neutrophils Absolute Auto 6.6 K/mm3 (1.3-6.7); Neutrophils Percent Auto 58.2 % (45.5-73.1); Platelet Count Result 212 k/mm3 (150-375); Red Blood Count 4.33 M/mm3 (4.2-5.4); Red Cell Distribution Width 15.2 % (11.5-14.5); White Blood Count 11.4 K/mm3 (4.5-10.0)
[2023-01-16] MEDS: ASPIRIN 81 MG CHEWABLE TABLET 324 MG PO (22:15)
--- NOTE | 2023-01-16 22:19 | ED.CHESTPAIN ---
HPI - Chest Pain General Chief Complaint: Chest Pain Stated Complaint: CP Time Seen by Provider: 01/16/23 22:13 History of Present Illness HPI narrative: Patient is a 57-year-old female with a history of coronary artery disease, bipolar disorder, GERD, irritable bowel syndrome, here for evaluation of epigastric/chest pain x2 days. Pain is in the center of her chest/upper abdomen and occasionally moves to her back. Worse with certain positions of the thorax. Not exertional in nature. No relief after nitro, took four tonight. Reports some nausea with the pain, has history of chronic GI issues. Sees a help desk support specialist at [facility], reportedly has small vessel disease not amenable for intervention. No leg swelling, fevers or chills, cough. She was admitted about 8 months ago for identical chest pain history. Pain was reproducible on examination similar to today and was thought to not be cardiac in nature after seeing one of our cardiologists. Patient had a stress test about a year ago that was reportedly negative. Related Data Home Medications Medication Instructions Recorded Confirmed albuterol sulfate 90 mcg/actuation 2 puff inhalation QID PRN SOB 01/17/20 05/19/22 aerosol inhaler aspirin 81 mg chewable tablet 81 mg PO DAILY 01/17/20 05/19/22 atorvastatin 80 mg tablet 80 mg PO HS 01/17/20 05/19/22 budesonide-formoterol HFA 80 2 puff inhalation DAILY 01/17/20 05/19/22 mcg-4.5 mcg/actuation aerosol inhaler (Symbicort) citalopram 40 mg tablet 40 mg PO DAILY 01/17/20 05/19/22 cromolyn 4 % eye drops 1 drp ophthalmic (eye) 4-6XD 01/17/20 05/19/22 famotidine 20 mg tablet 20 mg PO HS 01/17/20 05/19/22 fluticasone propionate 50 1 spray intranasal DAILY 01/17/20 05/19/22 mcg/actuation nasal spray,suspension insulin lispro 100 unit/mL 1 sliding scale dose subcut 01/17/20 05/19/22 subcutaneous solution (Admelog USEASDIRECTD U-100 Insulin lispro) isosorbide mononitrate 60 mg 60 mg PO DAILY 01/17/20 05/19/22 tablet,extended release 24 hr lisinopril 10 mg tablet 10 mg PO DAILY 01/17/20 05/19/22 lorazepam 1 mg tablet 1 mg PO DAILY 01/17/20 05/19/22 metformin 1,000 mg tablet 1,000 mg PO BID 01/17/20 05/19/22 metoprolol tartrate 50 mg tablet 50 mg PO Q12H 01/17/20 05/19/22 montelukast 10 mg tablet 10 mg PO DAILY 01/17/20 05/19/22 nitroglycerin 0.4 mg sublingual 0.4 mg sublingual Q5-15M PRN Chest 01/17/20 05/19/22 tablet Pain sumatriptan succinate 25 mg tablet 50 mg PO DAILY PRN Migranes 01/17/20 05/19/22 trazodone 100 mg tablet 100 mg PO HS 01/17/20 05/19/22 dicyclomine 10 mg capsule 10 mg PO QID PRN Diarrhea 06/15/20 05/19/22 gabapentin 600 mg tablet 600 mg PO TID 06/15/20 05/19/22 liraglutide 0.6 mg/0.1 mL (18 mg/3 0.6 mg subcut DAILY 06/15/20 05/19/22 mL) subcutaneous pen injector ([employer] 2-Amanuel) naproxen 500 mg tablet 500 mg PO DAILY 06/15/20 05/19/22 omeprazole 40 mg capsule,delayed 40 mg PO DAILY 05/19/22 05/19/22 release pioglitazone 15 mg tablet (Actos) 15 mg PO DAILY 05/19/22 05/19/22 Allergies Allergy/AdvReac Type Severity Reaction Status Date / Time No Known Allergies Allergy Verified 01/16/23 22:04 Review of Systems Review of Systems: Gen: Denies fevers or chills Eyes: Denies eye pain or visual change ENT: Denies congestion Respiratory: Denies shortness of breath or cough CV: Reports chest pain GI: Denies abdominal pain nausea, emesis or diarrhea denies burning, urgency, frequency or hematuria Musculoskeletal: Denies back pain or muscle pain Neuro: Denies numbness, tingling, weakness or focal weakness Skin: Denies rash Except as documented, all other systems reviewed and negative [facility] Past Medical History Medical History (Updated 01/17/23 @ 01:57 by Helena Hilton PA-C) Anxiety Bipolar disorder Coronary artery disease Diabetes mellitus Gastroparesis GERD (gastroesophageal reflux disease) Hepatic steatosis Hyperlipidemia IBS (irritable bowel syndrome) Kidney
[2023-01-16 22:24] LABS: Alanine Aminotransferase 27 U/L (6-35); Albumin Level 3.6 g/dL (3.5-5.1); Alkaline Phosphatase 61 U/L (38-126); Anion Gap 5 mmol/L (8-16); Aspartate Amino Transferase 23 U/L (14-36); Bilirubin,Total 0.5 mg/dL (0.2-1.3); Blood Urea Nitrogen 11 mg/dL (7-17); Calcium 8.3 mg/dL (8.4-10.2); Carbon Dioxide 30 mmol/L (22-30); Chloride 99 mmol/L (98-107); Estimated CRCL calculation 116 ml/min; Estimated Glomerular Filt Rate > 60; Glucose 197 mg/dL (65-110); Lipase 200 U/L (23-300); Potassium 3.8 mmol/L (3.4-5.0); Sodium 134 mmol/L (137-145)
[2023-01-16 22:26] LABS: Partial Thromboplastin Time 27.5 SECONDS (22.3-36.8); Prothrombin Time 13.9 Seconds (11.1-14.7)
[2023-01-16 22:35] LABS: Troponin I < 0.012 ng/mL (0.000-0.034)
[2023-01-16] MEDS: KETOROLAC 15 MG/ML VIAL (*BKC) IV PUSH (23:06)
[2023-01-16] MEDS: ONDANSETRON INJ 4 MG/2 ML VIAL IV PUSH (23:06)
[2023-01-17] MEDS: BELLADONNA ALK/PHENOB ELIX 10 ML, MAG HYDROX/ALUMINUM HYD/SIMETH 30 ML, LIDOCAINE HCL 2... PO (00:20)
[2023-01-17] MEDS: SODIUM CHLORIDE 0.9% IV 1,000 ML 999 ML IV CONT (00:22)
[2023-01-17 01:40] LABS: Troponin I < 0.012 ng/mL (0.000-0.034)
[2023-01-17] MEDS: ACETAMINOPHEN 325 MG TABLET 650 MG PO (02:12)
[2023-01-17 02:19] VITALS: BP 99/56; PULSE 54; RESP 17; O2SAT 97
== END 2023-01-17 02:21 | disposition home or self-care (01) ==
PROVIDERS: Preventive Medicine Aerospace Medicine; Emergency Provider Physician Assistant
DX: R07.89 Other chest pain (principal); I25.10 Atherosclerotic heart disease of native coronary artery without angina pectoris; E11.43 Type 2 diabetes mellitus with diabetic autonomic (poly)neuropathy; K31.84 Gastroparesis; E11.42 Type 2 diabetes mellitus with diabetic polyneuropathy; E78.5 Hyperlipidemia, unspecified; M19.90 Unspecified osteoarthritis, unspecified site; K21.9 Gastro-esophageal reflux disease without esophagitis; K58.9 Irritable bowel syndrome, unspecified; F31.9 Bipolar disorder, unspecified; F43.10 Post-traumatic stress disorder, unspecified; Z87.442 Personal history of urinary calculi; Z87.891 Personal history of nicotine dependence; Z90.49 Acquired absence of other specified parts of digestive tract; Z90.710 Acquired absence of both cervix and uterus; Z90.721 Acquired absence of ovaries, unilateral; Z79.84 Long term (current) use of oral hypoglycemic drugs; Z79.4 Long term (current) use of insulin; R00.1 Bradycardia, unspecified; I44.0 Atrioventricular block, first degree; I45.10 Unspecified right bundle-branch block; R94.31 Abnormal electrocardiogram [ECG] [EKG]
CPT/HCPCS: 36415; 71046; 71275; 80053; 83690; 84484; 85025; 85610; 85730; 93005; 96361; 96374; 96375; 99284; A9270; J1885; J2405; J7030; Q9967

== ENCOUNTER 2023-02-27 00:47 | Emergency (ER) | payer OTHER, SELFPAY ==
--- NOTE | ~2023-02-27 | XR_ITS ---
Right wrist Technique: PA, oblique, lateral, and ulnar deviation views were obtained. Clinical History: Pain Findings: No acute fracture or dislocation is seen. Osseous alignment is anatomic. Joint spaces are p reserved. Soft tissues are unremarkable. Impression: Unremarkable right wrist radiographs. Reviewed, dictated and finalized at location . Impression: Unremarkable right wrist radiographs.
--- NOTE | ~2023-02-27 | CT_ITS ---
Noncontrast CT scan of the cervical spine Technique: Multiple contiguous axial [address] images of the cervical spine were obtained and rec onstructed in 2D sagittal and coronal planes on the acquisition scanner. Dose reduction technique was used on this scan by utilizing automated exposure control, adjustment of the mA and/or kV according to patient size. The dose-length product (DLP) was 491.69 mGy-cm. Clinical History: Pain Findings: No fractures or dislocations. There is moderate to advanced degenerative disc narrowing at C5-C6 with associated uncovertebral degenerative change at this level. There is bilateral neural for aminal narrowing at C5-C6, with facet hypertrophy at this level. There is disc osteophyte complex at C5-C6, with probable mild canal stenosis. Remaining disc spaces are preserved. No prevertebral soft t issue swelling. Impression: Moderate to severe degenerative spondylosis at C5-C6, as detailed above. No fracture or subluxation. Reviewed, dictated and finalized at [facility]. Impression: Moderate to severe degenerative spondylosis at C5-C6, as detailed above. No fracture or subluxation.
--- NOTE | ~2023-02-27 | CT_ITS ---
Non-contrast Head CT History: Syncope COMPARISON: 11/13/2016 Technique: Axial non-contrast imaging of the brain was performed. Dose reduction technique was used on this scan by utilizing automated exposure control and iterative reconstruction technique. The dose -length product (DLP) was 681.00 mGy-cm. Findings: There is no evidence of intracranial hemorrhage, mass lesion, or acute infarct. Brain par enchyma appears normal. The ventricles and subarachnoid spaces are normal in size. The calvarium ap pears normal. The visualized paranasal sinuses and mastoid air cells are clear. Impression: No significant abnormality seen. Reviewed, dictated and finalized at location . Impression: No significant abnormality seen.
[2023-02-27 00:48] VITALS: BP 155/90; PULSE 77; RESP 14; TEMP 37; O2SAT 100
--- NOTE | 2023-02-27 01:14 | ECG_ITS ---
Measurements Intervals [place] Rate: 71 P: 1 VT: 222 QRS: -52 QRSD: 110 T: -11 QT: 413 QTc: 449 Interpretive Statements SINUS RHYTHM WITH FIRST DEGREE AV BLOCK LEFT AXIS DEVIATION LOW QRS VOLTAGE IN PRECORDIAL LEADS INCOMPLETE RIGHT BUNDLE BRANCH BLOCK CONSIDER ANTERIOR INFARCT, AGE INDETERMINATE INFERIOR INFARCT, AGE INDETERMINATE BORDERLINE ST-T WAVE ABNORMALITY- ANTEROLATERAL LEADS ABNORMAL ECG COMPARISON TO PRIOR ECG 01-16-23 22:05 SINUS RHYTHM NOW PRESENT Electronically Signed On 02-27-2023 6:48:39 CDT by Ruy Gayle D.O.
--- NOTE | 2023-02-27 01:20 | ED.FALL ---
HPI - Fall General Chief Complaint: Fall <Olimpia Arteaga APRN - Last Filed: 02/27/23 03:20> Stated Complaint: fell down stairs, hurt right arm <Olimpia Arteaga APRN - Last Filed: 02/27/23 03:20> Time Seen by Provider: 02/27/23 00:59 <Olimpia Arteaga APRN - Last Filed: 02/27/23 03:20> Source: patient <Olimpia Arteaga APRN - Last Filed: 02/27/23 03:20> Mode of arrival: ambulatory <Olimpia Arteaga APRN - Last Filed: 02/27/23 03:20> Limitations: no limitations <Olimpia Arteaga APRN - Last Filed: 02/27/23 03:20> History of Present Illness HPI Narrative: 58-year-old female presents to the emergency department status post fall. Patient states she got dizzy when she was going down the stairs then woke up landed on her stomach with pain to the right wrist and left knee. Patient does see a neurologist and says she has balance issues. Patient has a history of falls. States has been a long time since she got dizzy and does not remember what happened. Patient unsure of how long of time elapsed that she does not remember but does not think it was long. Fall was unwitnessed. Denies any chest pain, shortness of breath. Does currently endorsed right wrist pain pain with movement to the fingers. Full range of motion noted at the elbow limited at the wrist due to pain. Left knee with an abrasion but full range of motion noted nontender to touch. Patient stated to the RN at triage that she did not hit her head but when readdressed patient states the only reason why she thinks she does not hit her head is because it does not hurt. <Olimpia Arteaga APRN - Last Filed: 02/27/23 03:20> MD complaint: fall <Olimpia Arteaga APRN - Last Filed: 02/27/23 03:20> Related Data Home Medications: Home Medications Medication Instructions Recorded Confirmed albuterol sulfate 90 mcg/actuation 2 puff inhalation QID PRN SOB 01/17/20 05/19/22 aerosol inhaler aspirin 81 mg chewable tablet 81 mg PO DAILY 01/17/20 05/19/22 atorvastatin 80 mg tablet 80 mg PO HS 01/17/20 05/19/22 budesonide-formoterol HFA 80 2 puff inhalation DAILY 01/17/20 05/19/22 mcg-4.5 mcg/actuation aerosol inhaler (Symbicort) citalopram 40 mg tablet 40 mg PO DAILY 01/17/20 05/19/22 cromolyn 4 % eye drops 1 drp ophthalmic (eye) 4-6XD 01/17/20 05/19/22 famotidine 20 mg tablet 20 mg PO HS 01/17/20 05/19/22 fluticasone propionate 50 1 spray intranasal DAILY 01/17/20 05/19/22 mcg/actuation nasal spray,suspension insulin lispro 100 unit/mL 1 sliding scale dose subcut 01/17/20 05/19/22 subcutaneous solution (Admelog USEASDIRECTD U-100 Insulin lispro) isosorbide mononitrate 60 mg 60 mg PO DAILY 01/17/20 05/19/22 tablet,extended release 24 hr lisinopril 10 mg tablet 10 mg PO DAILY 01/17/20 05/19/22 lorazepam 1 mg tablet 1 mg PO DAILY 01/17/20 05/19/22 metformin 1,000 mg tablet 1,000 mg PO BID 01/17/20 05/19/22 metoprolol tartrate 50 mg tablet 50 mg PO Q12H 01/17/20 05/19/22 montelukast 10 mg tablet 10 mg PO DAILY 01/17/20 05/19/22 nitroglycerin 0.4 mg sublingual 0.4 mg sublingual Q5-15M PRN Chest 01/17/20 05/19/22 tablet Pain sumatriptan succinate 25 mg tablet 50 mg PO DAILY PRN Migranes 01/17/20 05/19/22 trazodone 100 mg tablet 100 mg PO HS 01/17/20 05/19/22 dicyclomine 10 mg capsule 10 mg PO QID PRN Diarrhea 06/15/20 05/19/22 gabapentin 600 mg tablet 600 mg PO TID 06/15/20 05/19/22 liraglutide 0.6 mg/0.1 mL (18 mg/3 0.6 mg subcut DAILY 06/15/20 05/19/22 mL) subcutaneous pen injector ([employer] 2-Amanuel) naproxen 500 mg tablet 500 mg PO DAILY 06/15/20 05/19/22 omeprazole 40 mg capsule,delayed 40 mg PO DAILY 05/19/22 05/19/22 release pioglitazone 15 mg tablet (Actos) 15 mg PO DAILY 05/19/22 05/19/22 <Olimpia Arteaga, DELIVERY REPRESENTATIVE - Last Filed: 02/27/23 03:20> Allergies/Adverse Reactions: Allergies Allergy/AdvReac Type Severity Reaction Status Date / Time No Known Allergies Allergy Verified 02/27/23 00:47 <Olimpia Arteaga
[2023-02-27 01:45] LABS: Basophils Absolute Auto 0.1 K/mm3 (0.0-0.1); Basophils Percent Auto 0.8 % (0.2-1.2); Eosinophils Absolute Auto 0.4 K/mm3 (0-0.3); Hematocrit 40.8 % (37.0-47.0); Hemoglobin 13.3 g/dL (12.0-15.0); Immature Granulocyte Absolute 0.04 K/mm3 (0.00-0.031); Immature Granulocyte Percent A 0.5 % (0-0.5); Lymphocytes Absolute Auto 2.76 K/mm3 (0.9-3.2); Lymphocytes Percent Auto 33.1 % (18.3-44.2); Mean Corpuscular HGB Conc 32.6 g/dl (32-36); Mean Corpuscular Hemoglobin 26.2 pg (26-34); Mean Corpuscular Volume 80.3 fl (80-100); Mean Platelet Volume 11.8 fl (7.4-10.4); Monocytes Absolute Auto 0.6 K/mm3 (0.1-0.6); Monocytes Percent Auto 7.4 % (2.6-8.5); Neutrophils Absolute Auto 4.4 K/mm3 (1.3-6.7); Neutrophils Percent Auto 53.2 % (45.5-73.1); Platelet Count Result 211 k/mm3 (150-375); Red Blood Count 5.08 M/mm3 (4.2-5.4); Red Cell Distribution Width 14.2 % (11.5-14.5); White Blood Count 8.3 K/mm3 (4.5-10.0)
[2023-02-27 02:00] VITALS: BP 177/77; PULSE 66
[2023-02-27 02:03] VITALS: BP 157/85; PULSE 71
[2023-02-27 02:05] VITALS: BP 163/89; PULSE 79
[2023-02-27 02:22] LABS: Alanine Aminotransferase 38 U/L (6-35); Albumin Level 4.1 g/dL (3.5-5.1); Alkaline Phosphatase 88 U/L (38-126); Anion Gap 5 mmol/L (8-16); Aspartate Amino Transferase 26 U/L (14-36); Bilirubin,Total 0.4 mg/dL (0.2-1.3); Blood Urea Nitrogen 10 mg/dL (7-17); Carbon Dioxide 29 mmol/L (22-30); Chloride 99 mmol/L (98-107); Estimated CRCL calculation 114 ml/min; Estimated Glomerular Filt Rate > 60; Glucose 289 mg/dL (65-110); Potassium 4.1 mmol/L (3.4-5.0); Sodium 133 mmol/L (137-145)
[2023-02-27 02:33] LABS: Troponin I < 0.012 ng/mL (0.000-0.034)
[2023-02-27 03:35] VITALS: BP 166/82; PULSE 65; RESP 14; O2SAT 97
[2023-02-27 04:00] VITALS: BP 130/87; PULSE 70; RESP 19; O2SAT 99
== END 2023-02-27 04:00 | disposition home or self-care (01) ==
PROVIDERS: Nurse Practitioner Family; Emergency Provider Emergency Medicine
DX: S63.501A Unspecified sprain of right wrist, initial encounter (principal); S09.90XA Unspecified injury of head, initial encounter; R55 Syncope and collapse; E11.43 Type 2 diabetes mellitus with diabetic autonomic (poly)neuropathy; K31.84 Gastroparesis; E11.42 Type 2 diabetes mellitus with diabetic polyneuropathy; I25.10 Atherosclerotic heart disease of native coronary artery without angina pectoris; E78.5 Hyperlipidemia, unspecified; K21.9 Gastro-esophageal reflux disease without esophagitis; K58.9 Irritable bowel syndrome, unspecified; M19.90 Unspecified osteoarthritis, unspecified site; F41.9 Anxiety disorder, unspecified; F31.9 Bipolar disorder, unspecified; Z87.442 Personal history of urinary calculi; Z79.82 Long term (current) use of aspirin; Z79.4 Long term (current) use of insulin; Z79.85 Long-term (current) use of injectable non-insulin antidiabetic drugs; Z90.49 Acquired absence of other specified parts of digestive tract; Z90.710 Acquired absence of both cervix and uterus; Z90.721 Acquired absence of ovaries, unilateral; Z87.891 Personal history of nicotine dependence; I44.0 Atrioventricular block, first degree; I45.10 Unspecified right bundle-branch block; R94.31 Abnormal electrocardiogram [ECG] [EKG]; M47.812 Spondylosis without myelopathy or radiculopathy, cervical region; W10.9XXA Fall (on) (from) unspecified stairs and steps, initial encounter
CPT/HCPCS: 29125; 36415; 70450; 72125; 73110; 80053; 84484; 85025; 93005; 99284

== ENCOUNTER 2023-03-05 17:15 | Emergency (ER) | payer OTHER, SELFPAY ==
--- NOTE | 2023-03-05 17:19 | ED.UPPEXIN ---
HPI - Extremity Injury (Upper) General Chief Complaint: Extremity Injury, Upper Stated Complaint: Right Hand Pain Time Seen by Provider: 03/05/23 17:19 Source: patient Mode of arrival: ambulatory Limitations: no limitations History of Present Illness HPI narrative: Patient is a 57-year-old female that presents after a fall a week ago. Patient was seen in a hospital and given splint for knee and wrist pain. Patient requesting return to work now that she is feeling much better. States she still sore and stiff but takes Tylenol ibuprofen with relief. Also requesting eczema cream for inbetween her 3rd and 4th digit on right hand. Related Data Home Medications Medication Instructions Recorded Confirmed albuterol sulfate 90 mcg/actuation 2 puff inhalation QID PRN SOB 01/17/20 03/05/23 aerosol inhaler aspirin 81 mg chewable tablet 81 mg PO DAILY 01/17/20 03/05/23 atorvastatin 80 mg tablet 80 mg PO HS 01/17/20 03/05/23 budesonide-formoterol HFA 80 2 puff inhalation DAILY 01/17/20 03/05/23 mcg-4.5 mcg/actuation aerosol inhaler (Symbicort) citalopram 40 mg tablet 40 mg PO DAILY 01/17/20 03/05/23 cromolyn 4 % eye drops 1 drp ophthalmic (eye) 4-6XD 01/17/20 03/05/23 famotidine 20 mg tablet 20 mg PO HS 01/17/20 03/05/23 fluticasone propionate 50 1 spray intranasal DAILY 01/17/20 03/05/23 mcg/actuation nasal spray,suspension insulin lispro 100 unit/mL 1 sliding scale dose subcut 01/17/20 03/05/23 subcutaneous solution (Admelog USEASDIRECTD U-100 Insulin lispro) isosorbide mononitrate 60 mg 60 mg PO DAILY 01/17/20 03/05/23 tablet,extended release 24 hr lisinopril 10 mg tablet 10 mg PO DAILY 01/17/20 03/05/23 lorazepam 1 mg tablet 1 mg PO DAILY 01/17/20 03/05/23 metformin 1,000 mg tablet 1,000 mg PO BID 01/17/20 03/05/23 metoprolol tartrate 50 mg tablet 50 mg PO Q12H 01/17/20 03/05/23 montelukast 10 mg tablet 10 mg PO DAILY 01/17/20 03/05/23 nitroglycerin 0.4 mg sublingual 0.4 mg sublingual Q5-15M PRN Chest 01/17/20 03/05/23 tablet Pain sumatriptan succinate 25 mg tablet 50 mg PO DAILY PRN Migranes 01/17/20 03/05/23 trazodone 100 mg tablet 100 mg PO HS 01/17/20 03/05/23 dicyclomine 10 mg capsule 10 mg PO QID PRN Diarrhea 06/15/20 03/05/23 gabapentin 600 mg tablet 600 mg PO TID 06/15/20 03/05/23 liraglutide 0.6 mg/0.1 mL (18 mg/3 0.6 mg subcut DAILY 06/15/20 03/05/23 mL) subcutaneous pen injector ([employer] 2-Amanuel) naproxen 500 mg tablet 500 mg PO DAILY 06/15/20 03/05/23 omeprazole 40 mg capsule,delayed 40 mg PO DAILY 05/19/22 03/05/23 release pioglitazone 15 mg tablet (Actos) 15 mg PO DAILY 05/19/22 03/05/23 Allergies Allergy/AdvReac Type Severity Reaction Status Date / Time No Known Allergies Allergy Verified 02/27/23 00:47 Review of Systems Review of Systems: All systems reviewed & are unremarkable except as noted in HPI and below Constitutional: Constitutional: Denies body ache(s), Denies chills, Denies fatigue, Denies fever(s), Denies headache(s), Denies malaise and Denies weakness Eyes: Eyes: Denies blurry vision, Denies irritation and Denies loss of vision ENT: Denies otalgia, Denies headache(s), Denies nasal discharge, Denies sinus pain and Denies sore throat Cardiovascular: Cardiovascular: Denies chest pain, Denies irregular heart rhythm and Denies dyspnea Respiratory: Respiratory: Denies dyspnea Gastrointestinal: Gastrointestinal: Denies abdominal pain, Denies melena, Denies hematochezia, Denies diarrhea, Denies nausea and Denies vomiting Musculoskeletal: Musculoskeletal: Denies back pain, Denies myalgias and Denies arthralgias Integumentary/Breasts: Skin/Breast: Denies pruritus and Denies rash Neurologic: Denies headache(s), Denies loss of vision and Denies weakness Psychiatric: Psychiatric: Reports no additional psychiatric complaints Endocrine: Endocrine: Denies fatigue [facility] Past Medical History Medical History (Updated 03/05/23 @ 17:46 by Jennifer Benoit, [employer]) Anxiety Bipol
[2023-03-05 17:27] VITALS: BP 117/65; PULSE 68; RESP 16; TEMP 36.6; O2SAT 99
== END 2023-03-05 17:50 | disposition home or self-care (01) ==
PROVIDERS: Emergency Provider Nurse Practitioner Family
DX: L30.9 Dermatitis, unspecified (principal); Z02.79 Encounter for issue of other medical certificate; Z87.891 Personal history of nicotine dependence; F12.90 Cannabis use, unspecified, uncomplicated; I25.10 Atherosclerotic heart disease of native coronary artery without angina pectoris; E11.43 Type 2 diabetes mellitus with diabetic autonomic (poly)neuropathy; K31.84 Gastroparesis; E11.42 Type 2 diabetes mellitus with diabetic polyneuropathy; Z79.4 Long term (current) use of insulin; Z79.84 Long term (current) use of oral hypoglycemic drugs; K21.9 Gastro-esophageal reflux disease without esophagitis; K76.0 Fatty (change of) liver, not elsewhere classified; E78.5 Hyperlipidemia, unspecified; F41.9 Anxiety disorder, unspecified; Z79.82 Long term (current) use of aspirin
CPT/HCPCS: 99213; G0463

== ENCOUNTER 2023-04-18 02:00 | Emergency (ER) | payer OTHER, SELFPAY ==
--- NOTE | ~2023-04-18 | CT_ITS ---
EXAMINATION: CT abdomen pelvis w con DATE: 04/18/2023 03:36 INDICATION: Lower abdominal pain TECHNIQUE: Computed tomography (CT) of the abdomen and pelvis was performed with 100 mL Omnipaque-350 intravenous contrast. Automated exposure control and iterative reconstruction technique were employe d. The dose-length product was 943.68 mGy-cm. COMPARISON: 02/07/2022 FINDINGS: Mild discoid atelectasis in the right middle and lower lobes. Heart size is normal. Atherosclerotic c oronary artery calcific location. No pericardial or pleural effusion. Small sliding-type hiatal herni a. 1 cm macroscopic fat attenuation nodule in the left hepatic lobe, unchanged since CT dated 09/14/19 15 which favors a benign etiology such as a hepatic lipoma or angiomyolipoma. Cholecystectomy clips a t the gallbladder fossa. Spleen, pancreas and bilateral adrenal glands and left kidney are normal. Th ere are couple subcentimeter right renal cysts. Duplicated right renal collecting system with mild ri ght hydroureteronephrosis extending along both ureters into the pelvis where they appear to fuse appr oximately 2 cm above level of the ureterovesicular junction. No evident obstructing stone or mass. Bl adder is normal. The uterus is not identified and has likely been surgically resected. There is moder ate colonic diverticulosis with a sigmoid and descending colon predominance. There is no adjacent in flammatory change to suggest diverticulitis. Small bowel and appendix are normal. No free intraperito rio gas or fluid. No pathologically enlarged abdominal or pelvic lymphadenopathy. IMPRESSION: 1. Partially duplicated right renal collecting system with mild right hydroureteronephrosis extending along both ureters which fuse just above level of the ureterovesicular junction with no evident obst ructing stone or mass. 2. Small sliding-type hiatal hernia. 3. Diverticulosis. Reviewed, dictated and finalized at location A. IMPRESSION: 1. Partially duplicated right renal collecting system with mild right hydrouret eronephrosis extending along both ureters which fuse just above level of the ur eterovesicular junction with no evident obstructing stone or mass. 2. Small sliding-type hiatal hernia. 3. Diverticulosis.
[2023-04-18 02:03] VITALS: BP 142/72; PULSE 60; RESP 16; TEMP 36.2; O2SAT 99
[2023-04-18 02:45] LABS: Basophils Absolute Auto 0.1 K/mm3 (0.0-0.1); Basophils Percent Auto 0.5 % (0.2-1.2); Eosinophils Absolute Auto 0.3 K/mm3 (0-0.3); Eosinophils Percent Auto 3.1 % (0-4.4); Hematocrit 40.2 % (37.0-47.0); Hemoglobin 12.9 g/dL (12.0-15.0); Immature Granulocyte Absolute 0.04 K/mm3 (0.00-0.031); Immature Granulocyte Percent A 0.4 % (0-0.5); Lymphocytes Absolute Auto 3.46 K/mm3 (0.9-3.2); Lymphocytes Percent Auto 31.2 % (18.3-44.2); Mean Corpuscular HGB Conc 32.1 g/dl (32-36); Mean Corpuscular Hemoglobin 26.1 pg (26-34); Mean Corpuscular Volume 81.4 fl (80-100); Mean Platelet Volume 11.4 fl (7.4-10.4); Neutrophils Absolute Auto 6.2 K/mm3 (1.3-6.7); Neutrophils Percent Auto 55.8 % (45.5-73.1); Platelet Count Result 255 k/mm3 (150-375); Red Blood Count 4.94 M/mm3 (4.2-5.4); Red Cell Distribution Width 13.9 % (11.5-14.5); White Blood Count 11.1 K/mm3 (4.5-10.0)
--- NOTE | 2023-04-18 02:47 | ED.GENADULT ---
HPI - General Adult General Chief complaint: Unspecified Stated complaint: not eating for 2, black stool Time Seen by Provider: 04/18/23 02:36 History of Present Illness HPI narrative: 58-year-old female presents to the the emergency department for evaluation of weight loss, lower abdominal pain and dark stool. Patient reports that she recently had follow-up with [facility] in February and had a colonoscopy that showed she had some polyps. Patient reports has been approximately 2 months since she was able to eat. Related Data Home Medications Medication Instructions Recorded Confirmed albuterol sulfate 90 mcg/actuation 2 puff inhalation QID PRN SOB 01/17/20 03/05/23 aerosol inhaler aspirin 81 mg chewable tablet 81 mg PO DAILY 01/17/20 03/05/23 atorvastatin 80 mg tablet 80 mg PO HS 01/17/20 03/05/23 budesonide-formoterol HFA 80 2 puff inhalation DAILY 01/17/20 03/05/23 mcg-4.5 mcg/actuation aerosol inhaler (Symbicort) citalopram 40 mg tablet 40 mg PO DAILY 01/17/20 03/05/23 cromolyn 4 % eye drops 1 drp ophthalmic (eye) 4-6XD 01/17/20 03/05/23 famotidine 20 mg tablet 20 mg PO HS 01/17/20 03/05/23 fluticasone propionate 50 1 spray intranasal DAILY 01/17/20 03/05/23 mcg/actuation nasal spray,suspension insulin lispro 100 unit/mL 1 sliding scale dose subcut 01/17/20 03/05/23 subcutaneous solution (Admelog USEASDIRECTD U-100 Insulin lispro) isosorbide mononitrate 60 mg 60 mg PO DAILY 01/17/20 03/05/23 tablet,extended release 24 hr lisinopril 10 mg tablet 10 mg PO DAILY 01/17/20 03/05/23 lorazepam 1 mg tablet 1 mg PO DAILY 01/17/20 03/05/23 metformin 1,000 mg tablet 1,000 mg PO BID 01/17/20 03/05/23 metoprolol tartrate 50 mg tablet 50 mg PO Q12H 01/17/20 03/05/23 montelukast 10 mg tablet 10 mg PO DAILY 01/17/20 03/05/23 nitroglycerin 0.4 mg sublingual 0.4 mg sublingual Q5-15M PRN Chest 01/17/20 03/05/23 tablet Pain sumatriptan succinate 25 mg tablet 50 mg PO DAILY PRN Migranes 01/17/20 03/05/23 trazodone 100 mg tablet 100 mg PO HS 01/17/20 03/05/23 dicyclomine 10 mg capsule 10 mg PO QID PRN Diarrhea 06/15/20 03/05/23 gabapentin 600 mg tablet 600 mg PO TID 06/15/20 03/05/23 liraglutide 0.6 mg/0.1 mL (18 mg/3 0.6 mg subcut DAILY 06/15/20 03/05/23 mL) subcutaneous pen injector ([employer] 2-Amanuel) naproxen 500 mg tablet 500 mg PO DAILY 06/15/20 03/05/23 omeprazole 40 mg capsule,delayed 40 mg PO DAILY 05/19/22 03/05/23 release pioglitazone 15 mg tablet (Actos) 15 mg PO DAILY 05/19/22 03/05/23 Allergies Allergy/AdvReac Type Severity Reaction Status Date / Time No Known Allergies Allergy Verified 04/18/23 02:01 Review of Systems Review of Systems: All systems reviewed & are unremarkable except as noted in HPI and below PMFSH Past Medical History Medical History (Updated 04/19/23 @ 00:01 by Nata Bernal) Anxiety Bipolar disorder Coronary artery disease Diabetes mellitus Gastroparesis GERD (gastroesophageal reflux disease) Hepatic steatosis Hyperlipidemia IBS (irritable bowel syndrome) Kidney stones Migraines Osteoarthritis Peripheral neuropathy PTSD (post-traumatic stress disorder) Surgical History Surgical History History of back surgery History of cholecystectomy History of hysterectomy History of left oophorectomy History of surgery on left wrist History of tonsillectomy Family History Family History Father Hypertension Dementia Parkinsons disease Mother Hypertension Social History Social History (System 01/22/23 @ 16:31 by Dee Kidd) Smoking packs per day: 1 Smoking cigarettes per day: 20.0 Years smoked: 25 Smoking pack-years: 25.00 Smoking status: Former smoker Tobacco type: cigarettes Second hand tobacco smoke exposure: No Alcohol intake: never Substance use: current Substance use type: marijuana Living arrangements: with f
[2023-04-18 02:49] VITALS: BP 126/69; PULSE 55; PULSE 57; RESP 12; TEMP 36.6; O2SAT 100
[2023-04-18 03:12] LABS: Alanine Aminotransferase 35 U/L (6-35); Albumin Level 4.5 g/dL (3.5-5.1); Alkaline Phosphatase 72 U/L (38-126); Anion Gap 4 mmol/L (8-16); Aspartate Amino Transferase 37 U/L (14-36); Bilirubin,Total 0.7 mg/dL (0.2-1.3); Blood Urea Nitrogen 15 mg/dL (7-17); Calcium 9.4 mg/dL (8.4-10.2); Carbon Dioxide 29 mmol/L (22-30); Chloride 97 mmol/L (98-107); Estimated CRCL calculation 84 ml/min; Estimated Glomerular Filt Rate > 60; Glucose 204 mg/dL (65-110); Lipase 215 U/L (23-300); Potassium 4.9 mmol/L (3.4-5.0); Sodium 130 mmol/L (137-145)
[2023-04-18 03:14] LABS: Appearance Urine Clear (Clear); Bacteria Urine 1+ /hpf; Bilirubin Urine Negative (Negative); Blood Urine Negative (Negative); Color Urine Yellow (Yellow); Glucose Urine UA Negative (Negative); Ketones Urine Negative (Negative); Leukocyte Esterase Ur 1+ LEU/UL (Negative); Need Manual Microscopic Reviewed; Nitrate Urine Negative (Negative); Protein Urine Negative (Negative); RBC Urine 0-2 /hpf (0-2); Specific Grav Ur 1.014 (1.001-1.035); Squamous Epithelial Cell Urine Few /hpf (Few); pH Urine 5.5 (5.0-9.0)
[2023-04-18 03:17] LABS: Add Urine Microscopic? YES
[2023-04-18] MEDS: HYDROmorphone HCL INJ (*CRX) 1 MG/ML SYR 0.5 MG IV PUSH ×2 (04:09→06:15)
[2023-04-18 05:00] VITALS: BP 135/65; PULSE 48; RESP 14; O2SAT 98
[2023-04-18 07:14] VITALS: BP 109/59; PULSE 48; RESP 13; TEMP 36.6; O2SAT 99
== END 2023-04-18 07:15 | disposition home or self-care (01) ==
PROVIDERS: Emergency Provider Emergency Medicine
DX: R10.9 Unspecified abdominal pain (principal); E78.5 Hyperlipidemia, unspecified; E11.9 Type 2 diabetes mellitus without complications; I25.10 Atherosclerotic heart disease of native coronary artery without angina pectoris; Z87.891 Personal history of nicotine dependence
CPT/HCPCS: 36415; 74177; 80053; 81001; 83690; 85025; 87077; 87086; 87147; 87186; 96374; 96375; 99284; J1170; Q9967

== ENCOUNTER 2023-06-02 08:54 | Emergency (ER) | payer OTHER, SELFPAY ==
--- NOTE | ~2023-06-02 | CT_ITS ---
. EXAMINATION: CT thoracic spine wo con DATE: 06/02/2023 10:50 INDICATION: Neck and upper back pain. TECHNIQUE: Computed tomography (CT) of the thoracic spine was performed without intravenous contrast. Automated exposure control and iterative reconstruction technique were employed. The dose-length pro duct was 851.56 mGy-cm. COMPARISON: Chest CT 01/16/2023, 05/19/2022 FINDINGS: There are changes of cholecystectomy. There is a surgical clip in the stomach. There is 6 d egrees dextrocurvature of thoracic spine. Vertebral body heights are normal. There is a hemangioma in T12 vertebral body. There is mildly decreased disc height from T3-T4 through T8-T9. There is multile trace facet joint osteoarthritis, severe in the upper thoracic spine. On the right, there is mild neura l foraminal stenosis at T1-T2, T2-T3, T3-T4, T4-T5, and T5-T6. On the left, there is mild neural fora nikole stenosis at T2-T3, T3-T4, T4-T5, T5-T6, and T7-T8. There is no central canal stenosis. IMPRESSION: 1. Mild thoracic spondylosis. Reviewed, dictated and finalized at location A.
--- NOTE | ~2023-06-02 | CT_ITS ---
EXAMINATION: CT cervical spine wo con DATE: 06/02/2023 10:49 INDICATION: Neck and upper back pain. TECHNIQUE: Computed tomography (CT) of the cervical spine was performed without intravenous contrast. Automated exposure control and iterative reconstruction technique were employed. The dose-length pro duct was 561.70 mGy-cm. COMPARISON: CT cervical spine 02/27/2023 FINDINGS: There is 5 degrees levocurvature of cervical spine. There is 2 mm retrolisthesis of C5 on C 6. Vertebral body heights are normal. There is mildly decreased disc height at C4-C5 and severely dec reased disc height at C5-C6. The following disc levels are specifically discussed: C2-C3: There is no uncovertebral joint osteoarthritis. There is mild bilateral facet joint osteoarthr itis. There is no neural foraminal stenosis. There is no central canal stenosis. C3-C4: There is mild bilateral uncovertebral joint osteoarthritis. There is mild right and moderate l eft facet joint osteoarthritis. There is no neural foraminal stenosis. There is no central canal sten osis. C4-C5: There is no uncovertebral joint osteoarthritis. There is mild right and moderate left facet jad int osteoarthritis. There is no neural foraminal stenosis. There is mild central canal stenosis. C5-C6: There is severe bilateral uncovertebral joint osteoarthritis. There is severe bilateral facet joint osteoarthritis. There is mild right and moderate left neural foraminal stenosis. There is mild central canal stenosis. C6-C7: There is no uncovertebral joint osteoarthritis. There is severe bilateral facet joint osteoart hritis. There is mild bilateral neural foraminal stenosis. There is mild central canal stenosis. C7-T1: There is no uncovertebral joint osteoarthritis. There is severe right and moderate left facet joint osteoarthritis. There is mild right neural foraminal stenosis. There is no central canal stenos is. IMPRESSION: 1. Severe spondylosis at C5-C6 and mild spondylosis at other levels, stable from 02/27/2023. Reviewed, dictated and finalized at location A. IMPRESSION: 1. Severe spondylosis at C5-C6 and mild spondylosis at other levels, stable fro m 02/27/2023.
[2023-06-02 09:05] VITALS: BP 110/74; PULSE 66; RESP 17; TEMP 36.7; O2SAT 100
[2023-06-02 09:12] VITALS: BP 133/81; PULSE 67; RESP 17; O2SAT 100
--- NOTE | 2023-06-02 10:31 | ED.NECK ---
HPI - Neck Pain/Injury General Chief Complaint: Neck Pain/Injury Stated Complaint: neck/back pain Time Seen by Provider: 06/02/23 09:56 History of Present Illness HPI Narrative: Patient is a 58-year-old female with a history of diabetes, CAD, GERD presenting with neck and back pain. Patient states that for the last month she has had severe neck and upper back pain. States that she has been using Tylenol, ibuprofen without any relief. States that the pain radiates down into her legs but she denies lower back pain. No recent trauma. States that she has intermittent numbness in both of her feet. Denies focal weakness. States that she has been persistently nauseated with no appetite. States that she has lost about 20 pounds in the last month unintentionally. No chest pain or abdominal pain. No fevers. No chest pain. No saddle anesthesia, bladder or bowel incontinence. Related Data Home Medications Medication Instructions Recorded Confirmed albuterol sulfate 90 mcg/actuation 2 puff inhalation QID PRN SOB 01/17/20 03/05/23 aerosol inhaler aspirin 81 mg chewable tablet 81 mg PO DAILY 01/17/20 03/05/23 atorvastatin 80 mg tablet 80 mg PO HS 01/17/20 03/05/23 budesonide-formoterol HFA 80 2 puff inhalation DAILY 01/17/20 03/05/23 mcg-4.5 mcg/actuation aerosol inhaler (Symbicort) citalopram 40 mg tablet 40 mg PO DAILY 01/17/20 03/05/23 cromolyn 4 % eye drops 1 drp ophthalmic (eye) 4-6XD 01/17/20 03/05/23 famotidine 20 mg tablet 20 mg PO HS 01/17/20 03/05/23 fluticasone propionate 50 1 spray intranasal DAILY 01/17/20 03/05/23 mcg/actuation nasal spray,suspension insulin lispro 100 unit/mL 1 sliding scale dose subcut 01/17/20 03/05/23 subcutaneous solution (Admelog USEASDIRECTD U-100 Insulin lispro) isosorbide mononitrate 60 mg 60 mg PO DAILY 01/17/20 03/05/23 tablet,extended release 24 hr lisinopril 10 mg tablet 10 mg PO DAILY 01/17/20 03/05/23 lorazepam 1 mg tablet 1 mg PO DAILY 01/17/20 03/05/23 metformin 1,000 mg tablet 1,000 mg PO BID 01/17/20 03/05/23 metoprolol tartrate 50 mg tablet 50 mg PO Q12H 01/17/20 03/05/23 montelukast 10 mg tablet 10 mg PO DAILY 01/17/20 03/05/23 nitroglycerin 0.4 mg sublingual 0.4 mg sublingual Q5-15M PRN Chest 01/17/20 03/05/23 tablet Pain sumatriptan succinate 25 mg tablet 50 mg PO DAILY PRN Migranes 01/17/20 03/05/23 trazodone 100 mg tablet 100 mg PO HS 01/17/20 03/05/23 dicyclomine 10 mg capsule 10 mg PO QID PRN Diarrhea 06/15/20 03/05/23 gabapentin 600 mg tablet 600 mg PO TID 06/15/20 03/05/23 liraglutide 0.6 mg/0.1 mL (18 mg/3 0.6 mg subcut DAILY 06/15/20 03/05/23 mL) subcutaneous pen injector (eXelate 2-Amanuel) naproxen 500 mg tablet 500 mg PO DAILY 06/15/20 03/05/23 omeprazole 40 mg capsule,delayed 40 mg PO DAILY 05/19/22 03/05/23 release pioglitazone 15 mg tablet (Actos) 15 mg PO DAILY 05/19/22 03/05/23 Allergies Allergy/AdvReac Type Severity Reaction Status Date / Time No Known Allergies Allergy Verified 06/02/23 09:05 Review of Systems Review of Systems: All systems reviewed & are unremarkable except as noted in HPI and below PMFSH Past Medical History Medical History (Updated 06/02/23 @ 15:13 by Rubia Escamilla MD) Anxiety Bipolar disorder Coronary artery disease Diabetes mellitus Gastroparesis GERD (gastroesophageal reflux disease) Hepatic steatosis Hyperlipidemia IBS (irritable bowel syndrome) Kidney stones Migraines Osteoarthritis Peripheral neuropathy PTSD (post-traumatic stress disorder) Surgical History Surgical History History of back surgery History of cholecystectomy History of hysterectomy History of left oophorectomy History of surgery on left wrist History of tonsillectomy Family History Family History Father Hypertension Dementia Parkinsons disease Mother Hypertension Social History
[2023-06-02 11:06] LABS: Basophils Percent Auto 0.4 % (0.2-1.2); Eosinophils Absolute Auto 0.3 K/mm3 (0-0.3); Eosinophils Percent Auto 2.8 % (0-4.4); Hematocrit 36.5 % (37.0-47.0); Hemoglobin 11.6 g/dL (12.0-15.0); Immature Granulocyte Absolute 0.02 K/mm3 (0.00-0.031); Immature Granulocyte Percent A 0.2 % (0-0.5); Lymphocytes Absolute Auto 2.35 K/mm3 (0.9-3.2); Lymphocytes Percent Auto 26.1 % (18.3-44.2); Mean Corpuscular HGB Conc 31.8 g/dl (32-36); Mean Corpuscular Volume 81.7 fl (80-100); Mean Platelet Volume 11.5 fl (7.4-10.4); Monocytes Absolute Auto 0.8 K/mm3 (0.1-0.6); Monocytes Percent Auto 8.8 % (2.6-8.5); Neutrophils Absolute Auto 5.6 K/mm3 (1.3-6.7); Neutrophils Percent Auto 61.7 % (45.5-73.1); Platelet Count Result 254 k/mm3 (150-375); Red Blood Count 4.47 M/mm3 (4.2-5.4); Red Cell Distribution Width 14.6 % (11.5-14.5)
[2023-06-02] MEDS: ONDANSETRON INJ 4 MG/2 ML VIAL IV PUSH (11:08)
[2023-06-02] MEDS: KETOROLAC 30 MG/ML VIAL (*BKC) IV PUSH (11:08)
[2023-06-02] MEDS: SODIUM CHLORIDE 0.9% IV 1,000 ML 999 ML IV CONT (11:08)
[2023-06-02] MEDS: HYDROmorphone HCL INJ (*CRX) 1 MG/ML SYR 0.5 MG IV PUSH (11:09)
[2023-06-02 11:36] LABS: Appearance Urine Clear (Clear); Bilirubin Urine Negative (Negative); Blood Urine Negative (Negative); Color Urine Yellow (Yellow); Glucose Urine UA Negative (Negative); Ketones Urine Negative (Negative); Leukocyte Esterase Ur Negative LEU/UL (Negative); Nitrate Urine Negative (Negative); Protein Urine Negative (Negative); Specific Grav Ur <= 1.005 (1.001-1.035); Urobilinogen Urine 0.2 mg/dL (<2.0)
[2023-06-02 11:46] LABS: Alanine Aminotransferase 27 U/L (6-35); Albumin Level 3.8 g/dL (3.5-5.1); Alkaline Phosphatase 63 U/L (38-126); Anion Gap 9 mmol/L (8-16); Aspartate Amino Transferase 25 U/L (14-36); Bilirubin,Total 0.6 mg/dL (0.2-1.3); Blood Urea Nitrogen 13 mg/dL (7-17); Calcium 8.8 mg/dL (8.4-10.2); Carbon Dioxide 24 mmol/L (22-30); Chloride 104 mmol/L (98-107); Estimated CRCL calculation 80 ml/min; Estimated Glomerular Filt Rate > 60; Glucose 82 mg/dL (65-110); Lipase 124 U/L (23-300); Potassium 3.4 mmol/L (3.4-5.0); Sodium 137 mmol/L (137-145)
[2023-06-02 11:55] LABS: Add Urine Microscopic? NO
[2023-06-02 12:00] VITALS: PULSE 64; RESP 19; O2SAT 98
[2023-06-02 12:14] VITALS: BP 118/65; PULSE 62; RESP 75; O2SAT 97
[2023-06-02 13:33] VITALS: BP 114/60; PULSE 66; RESP 19; O2SAT 99
[2023-06-02 14:23] VITALS: BP 122/62; PULSE 62; RESP 14; O2SAT 94
== END 2023-06-02 15:34 | disposition home or self-care (01) ==
PROVIDERS: Emergency Provider Emergency Medicine
DX: M54.2 Cervicalgia (principal); M54.9 Dorsalgia, unspecified; F41.9 Anxiety disorder, unspecified; I25.10 Atherosclerotic heart disease of native coronary artery without angina pectoris; E11.9 Type 2 diabetes mellitus without complications; K21.9 Gastro-esophageal reflux disease without esophagitis; K76.0 Fatty (change of) liver, not elsewhere classified; E78.5 Hyperlipidemia, unspecified; Z87.442 Personal history of urinary calculi; M19.90 Unspecified osteoarthritis, unspecified site; Z79.4 Long term (current) use of insulin
CPT/HCPCS: 36415; 72125; 72128; 80053; 81003; 83690; 85025; 96361; 96374; 96375; 99284; J1170; J1885; J2405; J7030

== ENCOUNTER 2023-09-24 09:16 | Emergency (ER) | payer OTHER, SELFPAY ==
--- NOTE | ~2023-09-24 | XR_ITS ---
EXAMINATION: XR hand LT min 3V DATE: 09/24/2023 10:07 INDICATION: Left hand pain. TECHNIQUE: 3 views of left hand were obtained. COMPARISON: Left hand radiographs 04/10/2015 FINDINGS: Bone alignment is normal. No fracture. There is mild osteoarthritis of first carpometacarpa l joint and some of the interphalangeal joints. Osteopenia is noted. IMPRESSION: 1. Mild polyarticular osteoarthritis. Reviewed, dictated and finalized at location A. M DUMPER
--- NOTE | ~2023-09-24 | XR_ITS ---
XR wrist RT min 3V DATE: 09/24/2023 10:07 INDICATION: Fall. Lateral wrist pain TECHNIQUE: 4 views COMPARISON: None FINDINGS: Osteopenia. No fracture or dislocation, periosteal reaction or bone destruction, erosive change or chondrocalcino sis. Mild polyarticular osteoarthritis. IMPRESSION: Osteopenia Mild polyarticular osteoarthritis No fracture or dislocation Reviewed, dictated and finalized at location L. TOCK REPAIRER
--- NOTE | ~2023-09-24 | CT_ITS ---
. EXAMINATION: CT diagnostic chest wo con DATE: 09/24/2023 09:56 INDICATION: Fall. Right rib pain. TECHNIQUE: Computed tomography (CT) of the chest was performed without intravenous contrast. Automate d exposure control and iterative reconstruction technique were employed. Exam dose: 152.97 mGy-cm to nayeli exam DLP. COMPARISON: 01/16/2023 CTA chest FINDINGS: Normal heart size. Coronary calcifications. Trace pericardial fluid. Mild thoracic aortic arch calcification. No thoracic aortic aneurysm. No hilar or mediastinal mass lesion or lymphadenopathy. There are lobe calcified pulmonary granulomas. No pulmonary infiltrate or consolidation. There is min imal discoid atelectasis or scarring at the middle lobe, slight dependent bilateral lower lobe atelec tasis. No pleural effusion or pneumothorax. Included portions of the adrenal glands are unremarkable. Status post cholecystectomy. Diverticulosis of the colon. No displaced rib fracture. No suspicious osteolytic or osteoblastic lesions are noted. IMPRESSION: No displaced rib fracture is noted; no pleural effusion or pneumothorax Reviewed, dictated and finalized at Location [facility]. Reviewed, dictated and finalized at location L. ETIZER IMPRESSION: No displaced rib fracture is noted; no pleural effusion or pneumot horax
--- NOTE | 2023-09-24 09:38 | ED.FALL ---
HPI - Fall General Chief Complaint: Fall Stated Complaint: FALL 5 STEPS Time Seen by Provider: 09/24/23 09:26 History of Present Illness HPI Narrative: 58-year-old female female reports for evaluation for right wrist pain, left 2nd digit pain, and right-sided chest wall pain after mechanical fall that occurred prior to arrival. Patient states she was walking down the stairs of her trailer when she slipped, and fell down 5 stairs. States she landed on her right side. She is also reporting abrasions to her right leg and foot. Tetanus is up-to-date. Denies hitting her head or losing consciousness, neck pain or back pain, lower extremity pain. Related Data Home Medications Medication Instructions Recorded Confirmed albuterol sulfate 90 mcg/actuation 2 puff inhalation QID PRN SOB 01/17/20 03/05/23 aerosol inhaler aspirin 81 mg chewable tablet 81 mg PO DAILY 01/17/20 03/05/23 atorvastatin 80 mg tablet 80 mg PO HS 01/17/20 03/05/23 budesonide-formoterol HFA 80 2 puff inhalation DAILY 01/17/20 03/05/23 mcg-4.5 mcg/actuation aerosol inhaler (Symbicort) citalopram 40 mg tablet 40 mg PO DAILY 01/17/20 03/05/23 cromolyn 4 % eye drops 1 drp ophthalmic (eye) 4-6XD 01/17/20 03/05/23 famotidine 20 mg tablet 20 mg PO HS 01/17/20 03/05/23 fluticasone propionate 50 1 spray intranasal DAILY 01/17/20 03/05/23 mcg/actuation nasal spray,suspension insulin lispro 100 unit/mL 1 sliding scale dose subcut 01/17/20 03/05/23 subcutaneous solution (Admelog USEASDIRECTD U-100 Insulin lispro) isosorbide mononitrate 60 mg 60 mg PO DAILY 01/17/20 03/05/23 tablet,extended release 24 hr lisinopril 10 mg tablet 10 mg PO DAILY 01/17/20 03/05/23 lorazepam 1 mg tablet 1 mg PO DAILY 01/17/20 03/05/23 metformin 1,000 mg tablet 1,000 mg PO BID 01/17/20 03/05/23 metoprolol tartrate 50 mg tablet 50 mg PO Q12H 01/17/20 03/05/23 montelukast 10 mg tablet 10 mg PO DAILY 01/17/20 03/05/23 nitroglycerin 0.4 mg sublingual 0.4 mg sublingual Q5-15M PRN Chest 01/17/20 03/05/23 tablet Pain sumatriptan succinate 25 mg tablet 50 mg PO DAILY PRN Migranes 01/17/20 03/05/23 trazodone 100 mg tablet 100 mg PO HS 01/17/20 03/05/23 dicyclomine 10 mg capsule 10 mg PO QID PRN Diarrhea 06/15/20 03/05/23 gabapentin 600 mg tablet 600 mg PO TID 06/15/20 03/05/23 liraglutide 0.6 mg/0.1 mL (18 mg/3 0.6 mg subcut DAILY 06/15/20 03/05/23 mL) subcutaneous pen injector ([employer] 2-Amanuel) naproxen 500 mg tablet 500 mg PO DAILY 06/15/20 03/05/23 omeprazole 40 mg capsule,delayed 40 mg PO DAILY 05/19/22 03/05/23 release pioglitazone 15 mg tablet (Actos) 15 mg PO DAILY 05/19/22 03/05/23 Allergies Allergy/AdvReac Type Severity Reaction Status Date / Time No Known Allergies Allergy Verified 06/02/23 09:05 Review of Systems Review of Systems: CONSTITUTIONAL: Denies fever, chills, or sweats. EYES: Denies visual changes, redness, or discharge. ENT: Denies rhinorrhea, congestion, sore throat, or otalgia. CARDIOVASCULAR: Denies chest pain, palpitations, or edema. RESPIRATORY: Denies cough or dyspnea. GASTROINTESTINAL: Denies abdominal pain, nausea, vomiting, or diarrhea. GENITOURINARY: Denies dysuria or hematuria. SKIN: Denies rash or itching. MUSCULOSKELETAL: See HPI NEUROLOGIC: Denies headache, numbness, or weakness. PSYCHIATRIC: Denies anxiety or depression. [facility] Past Medical History Medical History (Updated 09/24/23 @ 10:32 by Kathie Cruz PA-C) Anxiety Bipolar disorder Coronary artery disease Diabetes mellitus Gastroparesis GERD (gastroesophageal reflux disease) Hepatic steatosis Hyperlipidemia IBS (irritable bowel syndrome) Kidney stones Migraines Osteoarthritis Peripheral neuropathy PTSD (post-traumatic stress disorder) Surgical History Surgical History History of back surgery History of cholecystectomy History of hysterectomy History of left oophorectomy History of surgery on left wr
[2023-09-24] MEDS: IBUPROFEN 400 MG TABLET 800 MG PO (10:09)
[2023-09-24] MEDS: CYCLOBENZAPRINE HCL 10 MG TABLET PO (10:10)
[2023-09-24] MEDS: ACETAMINOPHEN 325 MG TABLET 650 MG PO (10:10)
[2023-09-24 10:11] VITALS: BP 118/66; PULSE 52; RESP 18; O2SAT 97
[2023-09-24 10:31] VITALS: TEMP 36.4
== END 2023-09-24 10:47 | disposition home or self-care (01) ==
PROVIDERS: Emergency Provider Physician Assistant
DX: S63.501A Unspecified sprain of right wrist, initial encounter (principal); S20.211A Contusion of right front wall of thorax, initial encounter; S63.657A Sprain of metacarpophalangeal joint of left little finger, initial encounter; I25.10 Atherosclerotic heart disease of native coronary artery without angina pectoris; E11.43 Type 2 diabetes mellitus with diabetic autonomic (poly)neuropathy; K31.84 Gastroparesis; E11.42 Type 2 diabetes mellitus with diabetic polyneuropathy; K58.9 Irritable bowel syndrome, unspecified; M19.90 Unspecified osteoarthritis, unspecified site; F43.10 Post-traumatic stress disorder, unspecified; F41.9 Anxiety disorder, unspecified; F31.9 Bipolar disorder, unspecified; Z87.442 Personal history of urinary calculi; Z87.891 Personal history of nicotine dependence; Z90.49 Acquired absence of other specified parts of digestive tract; Z90.710 Acquired absence of both cervix and uterus; Z90.721 Acquired absence of ovaries, unilateral; Z79.82 Long term (current) use of aspirin; Z79.4 Long term (current) use of insulin; Z79.85 Long-term (current) use of injectable non-insulin antidiabetic drugs; Z79.84 Long term (current) use of oral hypoglycemic drugs; M85.88 Other specified disorders of bone density and structure, other site; M19.031 Primary osteoarthritis, right wrist; M18.9 Osteoarthritis of first carpometacarpal joint, unspecified; M19.042 Primary osteoarthritis, left hand; W10.9XXA Fall (on) (from) unspecified stairs and steps, initial encounter
CPT/HCPCS: 71250; 73110; 73130; 99284; A9270

== ENCOUNTER 2023-10-21 12:06 | Emergency (ER) | payer OTHER, SELFPAY ==
[2023-10-21 12:23] VITALS: BP 113/65; PULSE 72; RESP 16; TEMP 37.2; O2SAT 98
--- NOTE | 2023-10-21 13:20 | ED.GENADULT ---
HPI - General Adult General Chief complaint: Unspecified Stated complaint: work note Time Seen by Provider: 10/21/23 13:20 Source: patient, RN notes reviewed and old records reviewed Mode of arrival: ambulatory Limitations: no limitations History of Present Illness HPI narrative: 58 year old female presents to [facility] care accompanied by grandson with stated need for note to go back to work. She reports that she fell down steps at her house on the 24 of September and sustained rib contusions on her right side, and right wrist sprain and also a left finger sprain. She states that the pain in her right rib area has improved and she feels that she is ready to go back to work. Patient was seen in the emergency room for evaluation after the fall. Onset (ago): week(s) (sustained injury the 24 of September) Location: chest (right rib contusions, right wrist sprain and also left 2nd finger sprain.) Treatments prior to arrival: none Related Data Home Medications Medication Instructions Recorded Confirmed albuterol sulfate 90 mcg/actuation 2 puff inhalation QID PRN SOB 01/17/20 10/21/23 aerosol inhaler aspirin 81 mg chewable tablet 81 mg PO DAILY 01/17/20 10/21/23 atorvastatin 80 mg tablet 80 mg PO HS 01/17/20 10/21/23 budesonide-formoterol HFA 80 2 puff inhalation DAILY 01/17/20 10/21/23 mcg-4.5 mcg/actuation aerosol inhaler (Symbicort) citalopram 40 mg tablet 40 mg PO DAILY 01/17/20 10/21/23 cromolyn 4 % eye drops 1 drp ophthalmic (eye) 4-6XD 01/17/20 10/21/23 famotidine 20 mg tablet 20 mg PO HS 01/17/20 10/21/23 fluticasone propionate 50 1 spray intranasal DAILY 01/17/20 10/21/23 mcg/actuation nasal spray,suspension insulin lispro 100 unit/mL 1 sliding scale dose subcut 01/17/20 10/21/23 subcutaneous solution (Admelog USEASDIRECTD U-100 Insulin lispro) isosorbide mononitrate 60 mg 60 mg PO DAILY 01/17/20 10/21/23 tablet,extended release 24 hr lisinopril 10 mg tablet 10 mg PO DAILY 01/17/20 10/21/23 lorazepam 1 mg tablet 1 mg PO DAILY 01/17/20 10/21/23 metformin 1,000 mg tablet 1,000 mg PO BID 01/17/20 10/21/23 metoprolol tartrate 50 mg tablet 50 mg PO Q12H 01/17/20 10/21/23 montelukast 10 mg tablet 10 mg PO DAILY 01/17/20 10/21/23 nitroglycerin 0.4 mg sublingual 0.4 mg sublingual Q5-15M PRN Chest 01/17/20 10/21/23 tablet Pain sumatriptan succinate 25 mg tablet 50 mg PO DAILY PRN Migranes 01/17/20 10/21/23 trazodone 100 mg tablet 100 mg PO HS 01/17/20 10/21/23 dicyclomine 10 mg capsule 10 mg PO QID PRN Diarrhea 06/15/20 10/21/23 gabapentin 600 mg tablet 600 mg PO TID 06/15/20 10/21/23 liraglutide 0.6 mg/0.1 mL (18 mg/3 0.6 mg subcut DAILY 06/15/20 10/21/23 mL) subcutaneous pen injector ([employer] 2-Amanuel) naproxen 500 mg tablet 500 mg PO DAILY 06/15/20 10/21/23 omeprazole 40 mg capsule,delayed 40 mg PO DAILY 05/19/22 10/21/23 release pioglitazone 15 mg tablet (Actos) 15 mg PO DAILY 05/19/22 10/21/23 Allergies Allergy/AdvReac Type Severity Reaction Status Date / Time No Known Allergies Allergy Verified 10/21/23 12:34 Review of Systems Review of Systems: CONSTITUTIONAL: Denies fever, chills, or sweats. EYES: Denies visual changes, redness, or discharge. ENT: Denies rhinorrhea, congestion, sore throat, or otalgia. CARDIOVASCULAR: Denies chest pain, palpitations, or edema.reports pain to right chest from rib contusions has improved RESPIRATORY: Denies cough or dyspnea. GASTROINTESTINAL: Denies abdominal pain, nausea, vomiting, or diarrhea. GENITOURINARY: Denies dysuria or hematuria. SKIN: Denies rash or itching. MUSCULOSKELETAL: Denies back pain, joint pain, or myalgia. NEUROLOGIC: Denies headache, numbness, or weakness. PSYCHIATRIC: Reports history of anxiety or depression. All systems reviewed & are unremarkable except as noted in HPI and below [facility] Past Medical History Medical History (Updated 10/23/23 @ 08:29 by Pau Shrestha NP) Anxiety Bipolar disorder Coronary artery disease Diabetes
== END 2023-10-21 13:45 | disposition home or self-care (01) ==
PROVIDERS: Emergency Provider Registered Nurse
DX: Z02.79 Encounter for issue of other medical certificate (principal); W10.9XXD Fall (on) (from) unspecified stairs and steps, subsequent encounter; Z87.891 Personal history of nicotine dependence; F12.90 Cannabis use, unspecified, uncomplicated; I25.10 Atherosclerotic heart disease of native coronary artery without angina pectoris; K21.9 Gastro-esophageal reflux disease without esophagitis; K76.0 Fatty (change of) liver, not elsewhere classified; E78.5 Hyperlipidemia, unspecified; M19.90 Unspecified osteoarthritis, unspecified site; E11.42 Type 2 diabetes mellitus with diabetic polyneuropathy; E11.43 Type 2 diabetes mellitus with diabetic autonomic (poly)neuropathy; K31.84 Gastroparesis; Z79.4 Long term (current) use of insulin; Z79.84 Long term (current) use of oral hypoglycemic drugs; F41.9 Anxiety disorder, unspecified; Z79.82 Long term (current) use of aspirin
CPT/HCPCS: 99211; G0463

== ENCOUNTER 2023-11-06 19:55 | Emergency (ER) | payer OTHER, SELFPAY ==
[2023-11-06] VITALS (10 sets, daily range): BP systolic 109–119; BP diastolic 63–84; PULSE 55–72; RESP 16–20; TEMP 36.2; O2SAT 95–100
--- NOTE | ~2023-11-06 | CT_ITS ---
EXAMINATION: CT abdomen pelvis w con DATE: 11/06/2023 20:50 INDICATION: Constipation. Lower abdominal and rectal pain. TECHNIQUE: Computed tomography (CT) of the abdomen and pelvis was performed with 100 cc Omnipaque 350 intravenous contrast. The dose-length product was 521.00 mGy-cm. Automated exposure control and iter ative reconstruction technique were employed. COMPARISON: Comparison to multiple prior studies sequentially, with oldest reviewed study dated 03/2021. FINDINGS: There is a 4 mm right middle lobe nodule unchanged, benign. Dependent atelectasis. Heart si ze normal. No significant pleural or pericardial effusion. Status post cholecystectomy. There is dupl ication of the right renal collecting system with hydronephrosis of the upper and lower pulmonary dis ease. No obstructing stone or mass identified. Status post cholecystectomy. The liver, spleen, pancreas, adrenal glands, and left kidney are unremar kable. Bladder wall is mildly thickened. Colonic diverticulosis without evidence for diverticulitis. No significant vascular abnormality. No free air or free fluid. No lymphadenopathy. No acute osseous abnormality. Normal appendix. IMPRESSION: 1. Partial duplication right renal collecting system with chronic mild right hydronephrosis. No obstr ucting stone or mass. 2: Mildly thickened bladder wall, suspicious for cystitis Reviewed, dictated and finalized at location A. IMPRESSION: 1. Partial duplication right renal collecting system with chronic mild right hy dronephrosis. No obstructing stone or mass. 2: Mildly thickened bladder wall, suspicious for cystitis
[2023-11-06 20:24] LABS: Basophils Absolute Auto 0.1 K/mm3 (0.0-0.1); Basophils Percent Auto 0.9 % (0.2-1.2); Eosinophils Absolute Auto 0.3 K/mm3 (0-0.3); Eosinophils Percent Auto 3.2 % (0-4.4); Hematocrit 38.9 % (37.0-47.0); Hemoglobin 12.8 g/dL (12.0-15.0); Immature Granulocyte Absolute 0.03 K/mm3 (0.00-0.031); Immature Granulocyte Percent A 0.3 % (0-0.5); Lymphocytes Absolute Auto 3.17 K/mm3 (0.9-3.2); Lymphocytes Percent Auto 30.3 % (18.3-44.2); Mean Corpuscular HGB Conc 32.9 g/dl (32-36); Mean Corpuscular Hemoglobin 25.9 pg (26-34); Mean Corpuscular Volume 78.7 fl (80-100); Mean Platelet Volume 11.2 fl (7.4-10.4); Monocytes Absolute Auto 0.9 K/mm3 (0.1-0.6); Monocytes Percent Auto 8.7 % (2.6-8.5); Neutrophils Absolute Auto 5.9 K/mm3 (1.3-6.7); Neutrophils Percent Auto 56.6 % (45.5-73.1); Platelet Count Result 264 k/mm3 (150-375); Red Blood Count 4.94 M/mm3 (4.2-5.4); Red Cell Distribution Width 14.5 % (11.5-14.5); White Blood Count 10.5 K/mm3 (4.5-10.0)
--- NOTE | 2023-11-06 20:28 | ED.ABDPAIN ---
HPI - Abdominal Pain General Chief Complaint: Abdominal Pain Stated Complaint: constipation Time Seen by Provider: 11/06/23 20:06 Source: patient Mode of arrival: ambulatory Limitations: no limitations History of Present Illness HPI narrative: Patient is a 58-year-old female, with PMH of IBS-D, who presents to the ED with c/o constipation and rectal pain. Patient reports she has had issues with her bowel movements over the last 6 weeks. She states she typically has diarrhea/ribbon-like stools, but states she has had intermittent pain with BMs over the last 6 weeks. States pain has continued to worsen. C/o rectal pain and lower abdominal pain currently. States she had to leave work today due to the pain. Has not tried anything for the pain. She c/o constipation, has had small watery BMs over the last 2 days. Has been trying stool softeners and mag citrate at home without relief. C/o nausea. Denies vomiting. Denies rectal bleeding or melena. Denies fevers. Denies urinary complaints. Patient states she had a colonoscopy 5 years ago and polyps were noted at that time. Related Data Home Medications Medication Instructions Recorded Confirmed albuterol sulfate 90 mcg/actuation 2 puff inhalation QID PRN SOB 01/17/20 10/21/23 aerosol inhaler aspirin 81 mg chewable tablet 81 mg PO DAILY 01/17/20 10/21/23 atorvastatin 80 mg tablet 80 mg PO HS 01/17/20 10/21/23 budesonide-formoterol HFA 80 2 puff inhalation DAILY 01/17/20 10/21/23 mcg-4.5 mcg/actuation aerosol inhaler (Symbicort) citalopram 40 mg tablet 40 mg PO DAILY 01/17/20 10/21/23 cromolyn 4 % eye drops 1 drp ophthalmic (eye) 4-6XD 01/17/20 10/21/23 famotidine 20 mg tablet 20 mg PO HS 01/17/20 10/21/23 fluticasone propionate 50 1 spray intranasal DAILY 01/17/20 10/21/23 mcg/actuation nasal spray,suspension insulin lispro 100 unit/mL 1 sliding scale dose subcut 01/17/20 10/21/23 subcutaneous solution (Admelog USEASDIRECTD U-100 Insulin lispro) isosorbide mononitrate 60 mg 60 mg PO DAILY 01/17/20 10/21/23 tablet,extended release 24 hr lisinopril 10 mg tablet 10 mg PO DAILY 01/17/20 10/21/23 lorazepam 1 mg tablet 1 mg PO DAILY 01/17/20 10/21/23 metformin 1,000 mg tablet 1,000 mg PO BID 01/17/20 10/21/23 metoprolol tartrate 50 mg tablet 50 mg PO Q12H 01/17/20 10/21/23 montelukast 10 mg tablet 10 mg PO DAILY 01/17/20 10/21/23 nitroglycerin 0.4 mg sublingual 0.4 mg sublingual Q5-15M PRN Chest 01/17/20 10/21/23 tablet Pain sumatriptan succinate 25 mg tablet 50 mg PO DAILY PRN Migranes 01/17/20 10/21/23 trazodone 100 mg tablet 100 mg PO HS 01/17/20 10/21/23 dicyclomine 10 mg capsule 10 mg PO QID PRN Diarrhea 06/15/20 10/21/23 gabapentin 600 mg tablet 600 mg PO TID 06/15/20 10/21/23 liraglutide 0.6 mg/0.1 mL (18 mg/3 0.6 mg subcut DAILY 06/15/20 10/21/23 mL) subcutaneous pen injector ([employer] 2-Amanuel) naproxen 500 mg tablet 500 mg PO DAILY 06/15/20 10/21/23 omeprazole 40 mg capsule,delayed 40 mg PO DAILY 05/19/22 10/21/23 release pioglitazone 15 mg tablet (Actos) 15 mg PO DAILY 05/19/22 10/21/23 Allergies Allergy/AdvReac Type Severity Reaction Status Date / Time No Known Allergies Allergy Verified 10/21/23 12:34 Review of Systems Review of Systems: CONSTITUTIONAL: Denies fever, chills, or sweats. CARDIOVASCULAR: Denies chest pain, palpitations, or edema. RESPIRATORY: Denies cough or dyspnea. GASTROINTESTINAL: See HPI. GENITOURINARY: Denies dysuria or hematuria. MUSCULOSKELETAL: Denies back pain, extremity pain, myalgia. All systems reviewed & are unremarkable except as noted in HPI and below PMFSH Past Medical History Medical History (Updated 11/07/23 @ 03:03 by Yvonne Sharpe PA-C) Anxiety Bipolar disorder Coronary artery disease Diabetes mellitus Gastroparesis GERD (gastroesophageal reflux disease) Hepatic steatosis Hyperlipidemia IBS (irritable bowel syndrome) Kidney stones Migraines Osteoarthritis Peripheral neuropathy PTSD (
[2023-11-06] MEDS: ACETAMINOPHEN 500 MG TABLET 1000 MG PO (20:32)
[2023-11-06 20:33] LABS: Alanine Aminotransferase 24 U/L (6-35); Albumin Level 4.6 g/dL (3.5-5.1); Alkaline Phosphatase 92 U/L (38-126); Anion Gap 11 mmol/L (8-16); Aspartate Amino Transferase 24 U/L (14-36); Bilirubin,Total 0.9 mg/dL (0.2-1.3); Blood Urea Nitrogen 23 mg/dL (7-17); Calcium 9.7 mg/dL (8.4-10.2); Carbon Dioxide 20 mmol/L (22-30); Chloride 101 mmol/L (98-107); Estimated CRCL calculation 71 ml/min; Estimated Glomerular Filt Rate > 60; Glucose 216 mg/dL (65-110); Lipase 128 U/L (23-300); Potassium 4.3 mmol/L (3.4-5.0); Sodium 132 mmol/L (137-145)
[2023-11-06 20:48] LABS: Appearance Urine Clear (Clear); Bacteria Urine 4+ /hpf; Bilirubin Urine Negative (Negative); Blood Urine Negative (Negative); Color Urine Yellow (Yellow); Glucose Urine UA 3+ mg/dL (Negative); Ketones Urine Negative (Negative); Leukocyte Esterase Ur 1+ LEU/UL (Negative); Nitrate Urine Positive (Negative); Non Pathogenic Casts 0-2; Protein Urine Negative (Negative); RBC Urine 0-2 /hpf (0-2); Specific Grav Ur 1.023 (1.001-1.035); Squamous Epithelial Cell Urine Occasional /hpf (Few); Urobilinogen Urine 0.2 mg/dL (<2.0); WBC Urine 21-50 /hpf (0-3); pH Urine 5.5 (5.0-9.0)
[2023-11-06 20:51] LABS: Add Urine Microscopic? YES
[2023-11-06] MEDS: SODIUM CHLORIDE 0.9% IV 1,000 ML 999 ML IV CONT (20:59)
[2023-11-06] MEDS: KETOROLAC 30 MG/ML VIAL (*BKC) IV PUSH (21:59)
--- NOTE | 2023-11-06 23:08 | PC.NURSE ---
Report received from LOUISA Early. Assumed care of patient at this time.
== END 2023-11-06 23:49 | disposition home or self-care (01) ==
PROVIDERS: Emergency Provider Physician Assistant
DX: N39.0 Urinary tract infection, site not specified (principal); K59.00 Constipation, unspecified; I25.10 Atherosclerotic heart disease of native coronary artery without angina pectoris; E11.43 Type 2 diabetes mellitus with diabetic autonomic (poly)neuropathy; K31.84 Gastroparesis; E11.42 Type 2 diabetes mellitus with diabetic polyneuropathy; E78.5 Hyperlipidemia, unspecified; K58.9 Irritable bowel syndrome, unspecified; K21.9 Gastro-esophageal reflux disease without esophagitis; F41.9 Anxiety disorder, unspecified; F31.9 Bipolar disorder, unspecified; F43.10 Post-traumatic stress disorder, unspecified; Z87.442 Personal history of urinary calculi; Z90.49 Acquired absence of other specified parts of digestive tract; Z90.710 Acquired absence of both cervix and uterus; Z79.82 Long term (current) use of aspirin; Z79.4 Long term (current) use of insulin; Z79.84 Long term (current) use of oral hypoglycemic drugs; Z79.85 Long-term (current) use of injectable non-insulin antidiabetic drugs; R93.41 Abnormal radiologic findings on diagnostic imaging of renal pelvis, ureter, or bladder; Q62.5 Duplication of ureter
CPT/HCPCS: 36415; 74177; 80053; 83690; 85025; 87077; 87086; 87088; 87186; 96361; 96365; 96375; 99284; A9270; J0696; J1885; J7030; Q9967

== ENCOUNTER 2023-11-26 08:27 | Emergency (ER) | payer OTHER, SELFPAY ==
[2023-11-26 08:30] VITALS: BP 100/63; PULSE 64; RESP 16; TEMP 36.3; O2SAT 98
--- NOTE | 2023-11-26 09:02 | ED.GENADULT ---
HPI - General Adult General Chief complaint: Skin/Abscess/Foreign Body Stated complaint: lump on my stomach Time Seen by Provider: 11/26/23 08:34 History of Present Illness HPI narrative: Patient is a 58-year-old female who presents ER with a growing lump to her right upper stomach. Worsening over last few days. She typically is bending over a high seen when she is at work and has been rubbing the area. No drainage. No fevers or chills or sweats. Has never had an issue with this area previously. Related Data Home Medications Medication Instructions Recorded Confirmed albuterol sulfate 90 mcg/actuation 2 puff inhalation QID PRN SOB 01/17/20 10/21/23 aerosol inhaler aspirin 81 mg chewable tablet 81 mg PO DAILY 01/17/20 10/21/23 atorvastatin 80 mg tablet 80 mg PO HS 01/17/20 10/21/23 budesonide-formoterol HFA 80 2 puff inhalation DAILY 01/17/20 10/21/23 mcg-4.5 mcg/actuation aerosol inhaler (Symbicort) citalopram 40 mg tablet 40 mg PO DAILY 01/17/20 10/21/23 cromolyn 4 % eye drops 1 drp ophthalmic (eye) 4-6XD 01/17/20 10/21/23 famotidine 20 mg tablet 20 mg PO HS 01/17/20 10/21/23 fluticasone propionate 50 1 spray intranasal DAILY 01/17/20 10/21/23 mcg/actuation nasal spray,suspension insulin lispro 100 unit/mL 1 sliding scale dose subcut 01/17/20 10/21/23 subcutaneous solution (Admelog USEASDIRECTD U-100 Insulin lispro) isosorbide mononitrate 60 mg 60 mg PO DAILY 01/17/20 10/21/23 tablet,extended release 24 hr lisinopril 10 mg tablet 10 mg PO DAILY 01/17/20 10/21/23 lorazepam 1 mg tablet 1 mg PO DAILY 01/17/20 10/21/23 metformin 1,000 mg tablet 1,000 mg PO BID 01/17/20 10/21/23 metoprolol tartrate 50 mg tablet 50 mg PO Q12H 01/17/20 10/21/23 montelukast 10 mg tablet 10 mg PO DAILY 01/17/20 10/21/23 nitroglycerin 0.4 mg sublingual 0.4 mg sublingual Q5-15M PRN Chest 01/17/20 10/21/23 tablet Pain sumatriptan succinate 25 mg tablet 50 mg PO DAILY PRN Migranes 01/17/20 10/21/23 trazodone 100 mg tablet 100 mg PO HS 01/17/20 10/21/23 dicyclomine 10 mg capsule 10 mg PO QID PRN Diarrhea 06/15/20 10/21/23 gabapentin 600 mg tablet 600 mg PO TID 06/15/20 10/21/23 liraglutide 0.6 mg/0.1 mL (18 mg/3 0.6 mg subcut DAILY 06/15/20 10/21/23 mL) subcutaneous pen injector ([employer] 2-Amanuel) naproxen 500 mg tablet 500 mg PO DAILY 06/15/20 10/21/23 omeprazole 40 mg capsule,delayed 40 mg PO DAILY 05/19/22 10/21/23 release pioglitazone 15 mg tablet (Actos) 15 mg PO DAILY 05/19/22 10/21/23 Allergies Allergy/AdvReac Type Severity Reaction Status Date / Time No Known Allergies Allergy Verified 10/21/23 12:34 Review of Systems Constitutional: Constitutional: Reports no additional constitutional complaints Gastrointestinal: Gastrointestinal: Reports no additional gastrointestinal complaints Integumentary/Breasts: Skin/Breast: Denies furuncle, Denies rash, Reports skin pain, Denies skin ulcer and Denies sores Comments: Possible abscess abdominal wall. [facility] Past Medical History Medical History (Updated 11/26/23 @ 09:08 by Wil Anderson MD) Anxiety Bipolar disorder Coronary artery disease Diabetes mellitus Gastroparesis GERD (gastroesophageal reflux disease) Hepatic steatosis Hyperlipidemia IBS (irritable bowel syndrome) Kidney stones Migraines Osteoarthritis Peripheral neuropathy PTSD (post-traumatic stress disorder) Surgical History Surgical History History of back surgery History of cholecystectomy History of hysterectomy History of left oophorectomy History of surgery on left wrist History of tonsillectomy Family History Family History Father Hypertension Dementia Parkinsons disease Mother Hypertension Social History Social History Smoking packs per day: 1 Smoking cigarettes per da
== END 2023-11-26 09:10 | disposition home or self-care (01) ==
PROVIDERS: Emergency Provider Emergency Medicine
DX: L72.8 Other follicular cysts of the skin and subcutaneous tissue (principal); E11.42 Type 2 diabetes mellitus with diabetic polyneuropathy; E11.43 Type 2 diabetes mellitus with diabetic autonomic (poly)neuropathy; K31.84 Gastroparesis; M19.90 Unspecified osteoarthritis, unspecified site; K21.9 Gastro-esophageal reflux disease without esophagitis; F41.9 Anxiety disorder, unspecified; F31.9 Bipolar disorder, unspecified; F43.10 Post-traumatic stress disorder, unspecified; Z87.442 Personal history of urinary calculi; Z87.891 Personal history of nicotine dependence; Z90.49 Acquired absence of other specified parts of digestive tract; Z90.710 Acquired absence of both cervix and uterus; Z90.721 Acquired absence of ovaries, unilateral; Z79.85 Long-term (current) use of injectable non-insulin antidiabetic drugs; Z79.4 Long term (current) use of insulin; Z79.84 Long term (current) use of oral hypoglycemic drugs; Z79.82 Long term (current) use of aspirin
CPT/HCPCS: 10061; 99282

== ENCOUNTER 2024-02-05 22:15 | Emergency (ER) | payer OTHER, MEDICAID, SELFPAY ==
--- NOTE | ~2024-02-05 | XR_ITS ---
XR chest 2V Ordering provider: Mino Mai MD History: 59 years Female with . new onset sob/ chest pain . Comparison: January 16, 2023 FINDINGS: MEDIASTINUM: The cardiac silhouette is not enlarged. LUNGS: No infiltrates, effusions or pneumothorax. OTHER: No free air under the diaphragm. IMPRESSION: No acute cardiopulmonary pathology. Reviewed, dictated and finalized at location A.
[2024-02-05 22:13] VITALS: BP 104/75; PULSE 66; RESP 16; TEMP 36.7; O2SAT 98
--- NOTE | 2024-02-05 22:19 | ECG_ITS ---
Test Date: 2024-02-05 22:23:14 Measurements Intervals [place] Rate: 65 P: 28 CT: 239 QRS: -55 QRSD: 90 T: -12 QT: 394 QTc: 412 Interpretive Statements SINUS RHYTHM WITH FIRST DEGREE AV BLOCK LOW QRS VOLTAGE IN PRECORDIAL LEADS [QRS DEFLECTION < 1.0 mV IN CHEST LEADS] POSSIBLE ANTERIOR MYOCARDIAL INFARCTION , OF INDETERMINATE AGE [30 ms Q WAVE IN V3/V4, OR R < 0.2 mV IN V4] INFERIOR MYOCARDIAL INFARCTION , OF INDETERMINATE AGE [40+ ms Q WAVE AND/OR ST/T ABNORMALITY IN II/aVF] No previous ECG available for comparison Electronically Signed On 02-07-2024 12:52:00 CDT by Russell Michelle M.D.
[2024-02-05 22:20] VITALS: PULSE 65; O2SAT 97
[2024-02-05 22:30] LABS: Basophils Absolute Auto 0.1 K/mm3 (0.0-0.1); Basophils Percent Auto 0.8 % (0.2-1.2); Eosinophils Absolute Auto 0.3 K/mm3 (0-0.3); Eosinophils Percent Auto 3.8 % (0-4.4); Hematocrit 38.7 % (37.0-47.0); Immature Granulocyte Absolute 0.03 K/mm3 (0.00-0.031); Immature Granulocyte Percent A 0.3 % (0-0.5); Lymphocytes Absolute Auto 2.64 K/mm3 (0.9-3.2); Lymphocytes Percent Auto 29.6 % (18.3-44.2); Mean Corpuscular HGB Conc 33.6 g/dl (32-36); Mean Corpuscular Hemoglobin 26.4 pg (26-34); Mean Corpuscular Volume 78.7 fl (80-100); Mean Platelet Volume 11.6 fl (7.4-10.4); Monocytes Absolute Auto 0.7 K/mm3 (0.1-0.6); Monocytes Percent Auto 7.6 % (2.6-8.5); Neutrophils Absolute Auto 5.2 K/mm3 (1.3-6.7); Neutrophils Percent Auto 57.9 % (45.5-73.1); Platelet Count Result 236 k/mm3 (150-375); Red Blood Count 4.92 M/mm3 (4.2-5.4); Red Cell Distribution Width 14.1 % (11.5-14.5); White Blood Count 8.9 K/mm3 (4.5-10.0)
[2024-02-05 22:41] LABS: INR 1.1; Prothrombin Time 14.4 Seconds (11.1-14.7)
[2024-02-05 22:42] LABS: Alanine Aminotransferase 24 U/L (6-35); Albumin Level 4.3 g/dL (3.5-5.1); Alkaline Phosphatase 93 U/L (38-126); Anion Gap 11 mmol/L (4-12); Aspartate Amino Transferase 23 U/L (14-36); Bilirubin,Total 0.5 mg/dL (0.2-1.3); Blood Urea Nitrogen 27 mg/dL (7-17); Calcium 9.3 mg/dL (8.4-10.2); Carbon Dioxide 21 mmol/L (22-30); Chloride 103 mmol/L (98-107); Estimated CRCL calculation 63 ml/min; Estimated Glomerular Filt Rate > 60; Glucose 284 mg/dL (65-110); Lipase 135 U/L (23-300); Partial Thromboplastin Time 26.3 Seconds (22.3-36.8); Potassium 4.2 mmol/L (3.4-5.0); Sodium 135 mmol/L (137-145)
[2024-02-05 22:54] LABS: Troponin I < 0.012 ng/mL (0.000-0.034)
[2024-02-05 23:15] VITALS: PULSE 65; RESP 14; O2SAT 98
[2024-02-05 23:31] VITALS: PULSE 63; RESP 20; O2SAT 98
[2024-02-05 23:46] VITALS: PULSE 60; RESP 18; O2SAT 100
[2024-02-06] VITALS (7 sets, daily range): BP systolic 103–131; BP diastolic 60–85; PULSE 52–76; RESP 11–17; O2SAT 98–100
--- NOTE | 2024-02-06 01:26 | ECG_ITS ---
Test Date: 2024-02-06 01:33:21 Measurements Intervals [place] Rate: 51 P: 63 CA: 241 QRS: -45 QRSD: 103 T: 28 QT: 471 QTc: 436 Interpretive Statements SINUS BRADYCARDIA WITH FIRST DEGREE AV BLOCK MARKED LEFT AXIS DEVIATION [QRS AXIS < -30] Compared to ECG 02/05/2024 22:23:14 heart rate decreased Electronically Signed On 02-07-2024 12:53:02 CDT by Russell Michelle M.D.
[2024-02-06 01:48] LABS: Troponin I < 0.012 ng/mL (0.000-0.034)
--- NOTE | 2024-02-06 02:36 | ED.GENADULT ---
HPI - General Adult General Chief complaint: Chest Pain Stated complaint: chest pain Time Seen by Provider: 02/05/24 23:24 History of Present Illness HPI narrative: This is a 59-year-old female ED with chief complaint of chest pain. Patient says that a p.m. she developed tightness the center of her chest while at work. It is 5 out 10 intensity. It is improving. She was given a nitro by EMS says that may have helped. Pain was not associated with exertion, diaphoresis or vomiting. Patient says she has had pain like this multiple times in past which self resolved. No exacerbating symptoms. She does note she is under lot stress lately. patient denies fevers chills productive cough shortness of breath abdominal pain lower extremity edema. Patient wanted make sure she is not having a heart attack Related Data Home Medications Medication Instructions Recorded Confirmed albuterol sulfate 90 mcg/actuation 2 puff inhalation QID PRN SOB 01/17/20 10/21/23 aerosol inhaler aspirin 81 mg chewable tablet 81 mg PO DAILY 01/17/20 10/21/23 atorvastatin 80 mg tablet 80 mg PO HS 01/17/20 10/21/23 budesonide-formoterol HFA 80 2 puff inhalation DAILY 01/17/20 10/21/23 mcg-4.5 mcg/actuation aerosol inhaler (Symbicort) citalopram 40 mg tablet 40 mg PO DAILY 01/17/20 10/21/23 cromolyn 4 % eye drops 1 drp ophthalmic (eye) 4-6XD 01/17/20 10/21/23 famotidine 20 mg tablet 20 mg PO HS 01/17/20 10/21/23 fluticasone propionate 50 1 spray intranasal DAILY 01/17/20 10/21/23 mcg/actuation nasal spray,suspension insulin lispro 100 unit/mL 1 sliding scale dose subcut 01/17/20 10/21/23 subcutaneous solution (Admelog USEASDIRECTD U-100 Insulin lispro) isosorbide mononitrate 60 mg 60 mg PO DAILY 01/17/20 10/21/23 tablet,extended release 24 hr lisinopril 10 mg tablet 10 mg PO DAILY 01/17/20 10/21/23 lorazepam 1 mg tablet 1 mg PO DAILY 01/17/20 10/21/23 metformin 1,000 mg tablet 1,000 mg PO BID 01/17/20 10/21/23 metoprolol tartrate 50 mg tablet 50 mg PO Q12H 01/17/20 10/21/23 montelukast 10 mg tablet 10 mg PO DAILY 01/17/20 10/21/23 nitroglycerin 0.4 mg sublingual 0.4 mg sublingual Q5-15M PRN Chest 01/17/20 10/21/23 tablet Pain sumatriptan succinate 25 mg tablet 50 mg PO DAILY PRN Migranes 01/17/20 10/21/23 trazodone 100 mg tablet 100 mg PO HS 01/17/20 10/21/23 dicyclomine 10 mg capsule 10 mg PO QID PRN Diarrhea 06/15/20 10/21/23 gabapentin 600 mg tablet 600 mg PO TID 06/15/20 10/21/23 liraglutide 0.6 mg/0.1 mL (18 mg/3 0.6 mg subcut DAILY 06/15/20 10/21/23 mL) subcutaneous pen injector ([employer] 2-Amanuel) naproxen 500 mg tablet 500 mg PO DAILY 06/15/20 10/21/23 omeprazole 40 mg capsule,delayed 40 mg PO DAILY 05/19/22 10/21/23 release pioglitazone 15 mg tablet (Actos) 15 mg PO DAILY 05/19/22 10/21/23 Allergies Allergy/AdvReac Type Severity Reaction Status Date / Time No Known Allergies Allergy Verified 02/05/24 22:19 [facility] Past Medical History Medical History (Updated 02/06/24 @ 02:45 by Mino Mai MD) Anxiety Bipolar disorder Coronary artery disease Diabetes mellitus Gastroparesis GERD (gastroesophageal reflux disease) Hepatic steatosis Hyperlipidemia IBS (irritable bowel syndrome) Kidney stones Migraines Osteoarthritis Peripheral neuropathy PTSD (post-traumatic stress disorder) Surgical History Surgical History History of back surgery History of cholecystectomy History of hysterectomy History of left oophorectomy History of surgery on left wrist History of tonsillectomy Family History Family History Father Hypertension Dementia Parkinsons disease Mother Hypertension Social History Social History Smoking packs per day: 1 Smoking cigarettes per day: 20.0 Years smoked: 25 Smoking pack-years: 25.00 Smoking status:
== END 2024-02-06 03:00 | disposition home or self-care (01) ==
PROVIDERS: Emergency Provider Emergency Medicine
DX: I25.10 Atherosclerotic heart disease of native coronary artery without angina pectoris (principal); E11.43 Type 2 diabetes mellitus with diabetic autonomic (poly)neuropathy; K31.84 Gastroparesis; E11.42 Type 2 diabetes mellitus with diabetic polyneuropathy; E78.5 Hyperlipidemia, unspecified; K21.9 Gastro-esophageal reflux disease without esophagitis; K58.9 Irritable bowel syndrome, unspecified; M19.90 Unspecified osteoarthritis, unspecified site; F31.9 Bipolar disorder, unspecified; F41.9 Anxiety disorder, unspecified; F43.10 Post-traumatic stress disorder, unspecified; Z87.442 Personal history of urinary calculi; Z90.49 Acquired absence of other specified parts of digestive tract; Z90.710 Acquired absence of both cervix and uterus; Z90.721 Acquired absence of ovaries, unilateral; I44.0 Atrioventricular block, first degree; R94.31 Abnormal electrocardiogram [ECG] [EKG]; R00.1 Bradycardia, unspecified; Z79.82 Long term (current) use of aspirin; Z79.4 Long term (current) use of insulin; Z79.84 Long term (current) use of oral hypoglycemic drugs; Z79.899 Other long term (current) drug therapy
CPT/HCPCS: 36415; 71046; 80053; 83690; 84484; 85025; 85610; 85730; 93005; 99284

== ENCOUNTER 2024-02-15 19:02 | Emergency (ER) | payer OTHER, MEDICAID, SELFPAY ==
--- NOTE | ~2024-02-15 | XR_ITS ---
XR chest 2V Ordering provider: Zenaida Zhao MD History: 59 years Female with . weakness, cp . Comparison: February 05, 2024 FINDINGS: MEDIASTINUM: The cardiac silhouette is not enlarged. LUNGS: No infiltrates, effusions or pneumothorax. OTHER: No free air under the diaphragm. IMPRESSION: No acute cardiopulmonary pathology. Reviewed, dictated and finalized at location A.
--- NOTE | ~2024-02-15 | CT_ITS ---
CTA brain carotid Ordering provider: Zenaida Zhao MD History: . episodes slurred speech . Comparison: February 27, 2023 Technique: CT angiogram head and neck was performed following timed intravenous injection of contrast . Thin slice axial images and reformatted coronal images were obtained. Three dimensional reformatted images of the brain were also obtained using a [employer] workstation. Radiation reduction technique ut ilized. DLP is 1651.32 mGy. FINDINGS: HEAD: --ANTERIOR AND MIDDLE CEREBRAL ARTERIES AND BRANCHES: Normal caliber and contour. --INTERNAL CAROTID ARTERIES: Mild atheromatous disease but no significant stenosis. No occlusion. --BASILAR ARTERY AND BRANCHES: Normal caliber and contour. No atheromatous disease. --POSTERIOR CEREBRAL ARTERIES: Normal caliber and contour --POSTERIOR COMMUNICATING ARTERIES: Not visualized which is probably related to congenital absence or small size. --ANEURYSM: None visualized. --BRAIN: No definite abnormality seen. --BONES AND SUPERFICIAL SOFT TISSUES: Normal. --PARANASAL SINUSES AND MASTOIDS: Right maxillary sinus disease. NECK: --RIGHT CERVICAL CAROTID SYSTEM: Normal caliber and contour. Percent stenosis per NASCET criteria is 0%. No carotid dissection. Otherwise, no significant atheromatous disease or stenosis of the cervica l carotid system. --LEFT CERVICAL CAROTID SYSTEM: Mild atheromatous disease of the carotid bulb and proximal internal c arotid artery without significant stenosis. Percent stenosis per NASCET criteria is 40%. No carotid dissection. Otherwise, no significant atheromatous disease or stenosis of the cervical carotid system. --VERTEBRAL ARTERIES: Normal caliber and contour. --VISUALIZED AORTIC ARCH AND BRANCHING VESSELS: Mild atheromatous disease but no significant stenosis . --SOFT TISSUES: Normal. --CERVICAL SPINE: Age appropriate degenerative changes. IMPRESSION: 1. CTA head and neck. Percent stenosis per NASCET criteria is 40% on the left side. Reviewed, dictated and finalized at location A. IMPRESSION: 1. CTA head and neck. Percent stenosis per NASCET criteria is 40% on the lef t side.
[2024-02-15 19:04] VITALS: BP 139/68; PULSE 60; RESP 12; TEMP 36.4; O2SAT 100
--- NOTE | 2024-02-15 19:09 | ECG_ITS ---
Test Date: 2024-02-15 19:11:42 Measurements Intervals [place] Rate: 59 P: 38 MN: 237 QRS: -49 QRSD: 94 T: -7 QT: 409 QTc: 406 Interpretive Statements SINUS BRADYCARDIA WITH FIRST DEGREE AV BLOCK LOW QRS VOLTAGE IN PRECORDIAL LEADS [QRS DEFLECTION < 1.0 mV IN CHEST LEADS] LEFT ANTERIOR FASCICULAR BLOCK [QRS AXIS <= -45, QR IN I, RS IN II] Compared to ECG 02/06/2024 01:33:21 NO SIGNIFICANT CHANGES Electronically Signed On 02-16-2024 13:29:07 CDT by Erin Turner M.D.
[2024-02-15 19:22] LABS: Basophils Absolute Auto 0.1 K/mm3 (0.0-0.1); Basophils Percent Auto 0.9 % (0.2-1.2); Eosinophils Absolute Auto 0.4 K/mm3 (0-0.3); Eosinophils Percent Auto 3.6 % (0-4.4); Hematocrit 40.5 % (37.0-47.0); Hemoglobin 13.4 g/dL (12.0-15.0); Immature Granulocyte Absolute 0.05 K/mm3 (0.00-0.031); Immature Granulocyte Percent A 0.4 % (0-0.5); Lymphocytes Absolute Auto 3.75 K/mm3 (0.9-3.2); Lymphocytes Percent Auto 32.2 % (18.3-44.2); Mean Corpuscular HGB Conc 33.1 g/dl (32-36); Mean Corpuscular Hemoglobin 25.6 pg (26-34); Mean Corpuscular Volume 77.3 fl (80-100); Mean Platelet Volume 11.3 fl (7.4-10.4); Monocytes Absolute Auto 0.8 K/mm3 (0.1-0.6); Monocytes Percent Auto 7.1 % (2.6-8.5); Neutrophils Absolute Auto 6.5 K/mm3 (1.3-6.7); Neutrophils Percent Auto 55.8 % (45.5-73.1); Platelet Count Result 303 k/mm3 (150-375); Red Blood Count 5.24 M/mm3 (4.2-5.4); Red Cell Distribution Width 14.3 % (11.5-14.5); White Blood Count 11.6 K/mm3 (4.5-10.0)
[2024-02-15 19:32] LABS: Alanine Aminotransferase 26 U/L (6-35); Albumin Level 4.6 g/dL (3.5-5.1); Alkaline Phosphatase 87 U/L (38-126); Anion Gap 11 mmol/L (4-12); Aspartate Amino Transferase 22 U/L (14-36); Bilirubin,Total 0.5 mg/dL (0.2-1.3); Blood Urea Nitrogen 27 mg/dL (7-17); Calcium 9.6 mg/dL (8.4-10.2); Carbon Dioxide 24 mmol/L (22-30); Chloride 102 mmol/L (98-107); Estimated CRCL calculation 70 ml/min; Estimated Glomerular Filt Rate > 60; Glucose 111 mg/dL (65-110); Potassium 4.2 mmol/L (3.4-5.0); Sodium 137 mmol/L (137-145)
[2024-02-15 19:48] LABS: Add Urine Microscopic? YES; Appearance Urine Clear (Clear); Bacteria Urine Rare /hpf; Bilirubin Urine Negative (Negative); Blood Urine Negative (Negative); Color Urine Yellow (Yellow); Glucose Urine UA 3+ mg/dL (Negative); Ketones Urine Negative (Negative); Leukocyte Esterase Ur 1+ LEU/UL (Negative); Nitrate Urine Negative (Negative); Non Pathogenic Casts 0-2; Protein Urine Negative (Negative); RBC Urine 0-2 /hpf (0-2); Specific Grav Ur 1.008 (1.001-1.035); Squamous Epithelial Cell Urine None Seen /hpf (Few); Urobilinogen Urine 0.2 mg/dL (<2.0); WBC Urine 21-50 /hpf (0-3); pH Urine 6.5 (5.0-9.0)
--- NOTE | 2024-02-15 20:20 | ED.WEAKNESS ---
HPI - Weakness General Chief complaint: Weakness Stated complaint: WEAKNESS, CONFUSION, CP, ABD PAIN Time Seen by Provider: 02/15/24 20:19 Source: patient and other (presents with service dog) Limitations: no limitations History of Present Illness HPI Narrative: Patient presents with report episodes generalized non-unilateral weakness. She has been experiencing multiple episodes intermittently over the past week. They are accompanied by some confusion and slurred speech, now resolved. She also a headache. She denies any fevers. She denies any dysuria or hematuria although she does have urinary urgency and frequency. She also notes that she has intermittent chest pain and abdominal pain these are chronic. She has also been gassy but attributes this to her IBS-D. Related Data Home Medications Medication Instructions Recorded Confirmed albuterol sulfate 90 mcg/actuation 2 puff inhalation QID PRN SOB 01/17/20 10/21/23 aerosol inhaler aspirin 81 mg chewable tablet 81 mg PO DAILY 01/17/20 10/21/23 atorvastatin 80 mg tablet 80 mg PO HS 01/17/20 10/21/23 budesonide-formoterol HFA 80 2 puff inhalation DAILY 01/17/20 10/21/23 mcg-4.5 mcg/actuation aerosol inhaler (Symbicort) citalopram 40 mg tablet 40 mg PO DAILY 01/17/20 10/21/23 cromolyn 4 % eye drops 1 drp ophthalmic (eye) 4-6XD 01/17/20 10/21/23 famotidine 20 mg tablet 20 mg PO HS 01/17/20 10/21/23 fluticasone propionate 50 1 spray intranasal DAILY 01/17/20 10/21/23 mcg/actuation nasal spray,suspension insulin lispro 100 unit/mL 1 sliding scale dose subcut 01/17/20 10/21/23 subcutaneous solution (Admelog USEASDIRECTD U-100 Insulin lispro) isosorbide mononitrate 60 mg 60 mg PO DAILY 01/17/20 10/21/23 tablet,extended release 24 hr lisinopril 10 mg tablet 10 mg PO DAILY 01/17/20 10/21/23 lorazepam 1 mg tablet 1 mg PO DAILY 01/17/20 10/21/23 metformin 1,000 mg tablet 1,000 mg PO BID 01/17/20 10/21/23 metoprolol tartrate 50 mg tablet 50 mg PO Q12H 01/17/20 10/21/23 montelukast 10 mg tablet 10 mg PO DAILY 01/17/20 10/21/23 nitroglycerin 0.4 mg sublingual 0.4 mg sublingual Q5-15M PRN Chest 01/17/20 10/21/23 tablet Pain sumatriptan succinate 25 mg tablet 50 mg PO DAILY PRN Migranes 01/17/20 10/21/23 trazodone 100 mg tablet 100 mg PO HS 01/17/20 10/21/23 dicyclomine 10 mg capsule 10 mg PO QID PRN Diarrhea 06/15/20 10/21/23 gabapentin 600 mg tablet 600 mg PO TID 06/15/20 10/21/23 liraglutide 0.6 mg/0.1 mL (18 mg/3 0.6 mg subcut DAILY 06/15/20 10/21/23 mL) subcutaneous pen injector ([employer] 2-Amanuel) naproxen 500 mg tablet 500 mg PO DAILY 06/15/20 10/21/23 omeprazole 40 mg capsule,delayed 40 mg PO DAILY 05/19/22 10/21/23 release pioglitazone 15 mg tablet (Actos) 15 mg PO DAILY 05/19/22 10/21/23 Allergies Allergy/AdvReac Type Severity Reaction Status Date / Time No Known Allergies Allergy Verified 02/05/24 22:19 [facility] Past Medical History Medical History Anxiety Bipolar disorder Coronary artery disease Diabetes mellitus Gastroparesis GERD (gastroesophageal reflux disease) Hepatic steatosis Hyperlipidemia Irritable bowel syndrome with diarrhea Kidney stones Migraines Osteoarthritis Peripheral neuropathy PTSD (post-traumatic stress disorder) Surgical History Surgical History History of back surgery History of cholecystectomy History of hysterectomy History of left oophorectomy History of surgery on left wrist History of tonsillectomy Family History Family History Father Hypertension Dementia Parkinsons disease Mother Hypertension Social History Social History Smoking packs per day: 1 Smoking cigarettes per day: 20.0 Years smoked: 25 Smoking pack-years: 25.00 Smoking status: Former smoker Tobacco ty
[2024-02-15 20:45] VITALS: BP 140/82; PULSE 68; RESP 15; O2SAT 98
[2024-02-15 20:52] LABS: Magnesium 1.8 mg/dL (1.6-2.3)
[2024-02-15 21:24] LABS: Influenza A QL RT-PCR Negative (Negative); Influenza B QL RT-PCR Negative (Negative); RSV RNA, RT-PCR Negative (Negative); SARS-CoV-2 RNA PCR Negative (Negative)
[2024-02-15 23:31] VITALS: BP 100/79; PULSE 64; RESP 15; O2SAT 99
== END 2024-02-15 23:33 | disposition home or self-care (01) ==
PROVIDERS: Emergency Provider Student in an Organized Health Care Education/Training Program
DX: R53.1 Weakness (principal); I65.22 Occlusion and stenosis of left carotid artery; I44.0 Atrioventricular block, first degree; D72.829 Elevated white blood cell count, unspecified; R82.81 Pyuria; R79.89 Other specified abnormal findings of blood chemistry; Z20.822 Contact with and (suspected) exposure to COVID-19; I25.10 Atherosclerotic heart disease of native coronary artery without angina pectoris; E11.42 Type 2 diabetes mellitus with diabetic polyneuropathy; E11.43 Type 2 diabetes mellitus with diabetic autonomic (poly)neuropathy; K31.84 Gastroparesis; K21.9 Gastro-esophageal reflux disease without esophagitis; K58.0 Irritable bowel syndrome with diarrhea; M19.90 Unspecified osteoarthritis, unspecified site; Z87.442 Personal history of urinary calculi; Z87.891 Personal history of nicotine dependence; Z90.49 Acquired absence of other specified parts of digestive tract; Z90.710 Acquired absence of both cervix and uterus; Z90.721 Acquired absence of ovaries, unilateral; Z79.82 Long term (current) use of aspirin; Z79.899 Other long term (current) drug therapy; Z79.4 Long term (current) use of insulin; Z79.85 Long-term (current) use of injectable non-insulin antidiabetic drugs; Z79.84 Long term (current) use of oral hypoglycemic drugs; R00.1 Bradycardia, unspecified; I44.4 Left anterior fascicular block
CPT/HCPCS: 36415; 70496; 70498; 71046; 80053; 81001; 83735; 85025; 87077; 87086; 87088; 87186; 87637; 93005; 96365; 99284; J0696; Q9967

== ENCOUNTER 2024-05-17 19:47 | Emergency (ER) | payer OTHER, SELFPAY ==
--- NOTE | ~2024-05-17 | XR_ITS ---
EXAMINATION: XR chest 2V DATE: 05/17/2024 21:23 INDICATION: Chest pain TECHNIQUE: PA and lateral views of the chest were obtained. COMPARISON: Chest radiograph dated 02/15/2024 FINDINGS: Again seen are thin linear bands of discoid atelectasis/scarring in the right mid lung zone and left lower lung zone. No new airspace opacities, pulmonary edema, pleural effusion or pneumothorax. The ca rdiomediastinal silhouette is normal. Cholecystectomy clips in right upper quadrant. Additional surgi maxwell clip projecting over the epigastric region. IMPRESSION: 1. Chronic mild bilateral discoid atelectasis/scarring. No acute cardiopulmonary disease. Reviewed, dictated and finalized at location A. IMPRESSION: 1. Chronic mild bilateral discoid atelectasis/scarring. No acute cardiopulmonar y disease.
--- NOTE | ~2024-05-17 | CT_ITS ---
EXAMINATION: CT brain wo con DATE: 05/17/2024 22:56 INDICATION: Dizziness TECHNIQUE: Computed tomography (CT) of the head was performed without intravenous contrast. Sagittal and coronal reconstructions were performed. The mA was adjusted according to patient size. Iterative reconstruction technique was employed. The dose-length product was 605.33 mGy-cm. COMPARISON: head CT dated 02/15/2024 and 02/27/2023 FINDINGS: No acute intracranial hemorrhage, acute infarction or abnormal extra axial fluid collection. Ventricl es are normal and symmetric. No mass/mass effect. The orbits, paranasal sinuses and mastoid air cells are normal. IMPRESSION: 1. Normal head CT. Reviewed, dictated and finalized at location A. IMPRESSION: 1. Normal head CT.
[2024-05-17 20:13] VITALS: BP 111/60; PULSE 50; RESP 20; TEMP 36.2; O2SAT 98
--- NOTE | 2024-05-17 20:21 | ECG_ITS ---
Test Date: 2024-05-17 20:34:48 Measurements Intervals [place] Rate: 51 P: 33 MN: 242 QRS: -25 QRSD: 98 T: -11 QT: 449 QTc: 416 Interpretive Statements SINUS BRADYCARDIA WITH FIRST DEGREE AV BLOCK LOW QRS VOLTAGE IN PRECORDIAL LEADS BORDERLINE R WAVE PROGRESSION, ANTERIOR LEADS CONSIDER INFERIOR INFARCT, AGE INDETERMINATE BORDERLINE ST-T WAVE ABNORMALITY- ANTEROLATERAL LEADS BASELINE ARTIFACT- I, III, AVR, AVL, AVF, V2 ABNORMAL ECG Compared to ECG 02/15/2024 19:11:42 Electronically Signed On 05-18-2024 06:38:49 CDT by Ruy Gayle D.O.
[2024-05-17 22:13] VITALS: BP 108/68; PULSE 44; RESP 16; O2SAT 99
[2024-05-17 22:22] LABS: Basophils Absolute Auto 0.1 K/mm3 (0.0-0.1); Basophils Percent Auto 0.8 % (0.2-1.2); Eosinophils Absolute Auto 0.6 K/mm3 (0-0.3); Eosinophils Percent Auto 6.3 % (0-4.4); Hematocrit 36.5 % (37.0-47.0); Hemoglobin 11.7 g/dL (12.0-15.0); Immature Granulocyte Absolute 0.03 K/mm3 (0.00-0.031); Immature Granulocyte Percent A 0.3 % (0-0.5); Lymphocytes Absolute Auto 2.58 K/mm3 (0.9-3.2); Lymphocytes Percent Auto 26.2 % (18.3-44.2); Mean Corpuscular HGB Conc 32.1 g/dl (32-36); Mean Corpuscular Hemoglobin 26.2 pg (26-34); Mean Corpuscular Volume 81.8 fl (80-100); Mean Platelet Volume 11.3 fl (7.4-10.4); Monocytes Absolute Auto 0.8 K/mm3 (0.1-0.6); Monocytes Percent Auto 8.5 % (2.6-8.5); Neutrophils Absolute Auto 5.7 K/mm3 (1.3-6.7); Neutrophils Percent Auto 57.9 % (45.5-73.1); Platelet Count Result 211 k/mm3 (150-375); Red Blood Count 4.46 M/mm3 (4.2-5.4); Red Cell Distribution Width 14.4 % (11.5-14.5); White Blood Count 9.8 K/mm3 (4.5-10.0)
[2024-05-17 22:30] LABS: Magnesium 1.8 mg/dL (1.6-2.3)
--- NOTE | 2024-05-17 22:39 | ED.ANXIETY ---
HPI - Anxiety General Chief Complaint: Anxiety Stated Complaint: POON, anxiety Time Seen by Provider: 05/17/24 22:02 History of Present Illness HPI narrative: Patient is a 5-year-old female who presents the emergency department this evening complaining of dizziness, generalized weakness headaches and chest pain. Patient states that symptoms started yesterday and have persisted. She had carotid ultrasound performed yesterday due to history of TIAs and was informed that she has got good flow through her bilateral carotids. This was done at [facility] [place] [facility]. Patient states that she fell off the couch today, denies hitting her head, denies any blood thinner use and denies any back pain. Patient complaining of bilateral lower extremity cramps. Denies any recent URI symptoms and denies any flu-like symptoms. No fevers or chills. No additional symptoms or concerns at this time. Related Data Home Medications Medication Instructions Recorded Confirmed albuterol sulfate 90 mcg/actuation 2 puff inhalation QID PRN SOB 01/17/20 10/21/23 aerosol inhaler aspirin 81 mg chewable tablet 81 mg PO DAILY 01/17/20 10/21/23 atorvastatin 80 mg tablet 80 mg PO HS 01/17/20 10/21/23 budesonide-formoterol HFA 80 2 puff inhalation DAILY 01/17/20 10/21/23 mcg-4.5 mcg/actuation aerosol inhaler (Symbicort) citalopram 40 mg tablet 40 mg PO DAILY 01/17/20 10/21/23 cromolyn 4 % eye drops 1 drp ophthalmic (eye) 4-6XD 01/17/20 10/21/23 famotidine 20 mg tablet 20 mg PO HS 01/17/20 10/21/23 fluticasone propionate 50 1 spray intranasal DAILY 01/17/20 10/21/23 mcg/actuation nasal spray,suspension insulin lispro 100 unit/mL 1 sliding scale dose subcut 01/17/20 10/21/23 subcutaneous solution (Admelog USEASDIRECTD U-100 Insulin lispro) isosorbide mononitrate 60 mg 60 mg PO DAILY 01/17/20 10/21/23 tablet,extended release 24 hr lisinopril 10 mg tablet 10 mg PO DAILY 01/17/20 10/21/23 lorazepam 1 mg tablet 1 mg PO DAILY 01/17/20 10/21/23 metformin 1,000 mg tablet 1,000 mg PO BID 01/17/20 10/21/23 metoprolol tartrate 50 mg tablet 50 mg PO Q12H 01/17/20 10/21/23 montelukast 10 mg tablet 10 mg PO DAILY 01/17/20 10/21/23 nitroglycerin 0.4 mg sublingual 0.4 mg sublingual Q5-15M PRN Chest 01/17/20 10/21/23 tablet Pain sumatriptan succinate 25 mg tablet 50 mg PO DAILY PRN Migranes 01/17/20 10/21/23 trazodone 100 mg tablet 100 mg PO HS 01/17/20 10/21/23 dicyclomine 10 mg capsule 10 mg PO QID PRN Diarrhea 06/15/20 10/21/23 gabapentin 600 mg tablet 600 mg PO TID 06/15/20 10/21/23 liraglutide 0.6 mg/0.1 mL (18 mg/3 0.6 mg subcut DAILY 06/15/20 10/21/23 mL) subcutaneous pen injector ([employer] 2-Amanuel) naproxen 500 mg tablet 500 mg PO DAILY 06/15/20 10/21/23 omeprazole 40 mg capsule,delayed 40 mg PO DAILY 05/19/22 10/21/23 release pioglitazone 15 mg tablet (Actos) 15 mg PO DAILY 05/19/22 10/21/23 Allergies Allergy/AdvReac Type Severity Reaction Status Date / Time No Known Allergies Allergy Verified 05/17/24 20:22 Review of Systems Review of Systems: All systems are reviewed and are negative unless stated otherwise in the HPI. [facility] Past Medical History Medical History Anxiety Bipolar disorder Coronary artery disease Diabetes mellitus Gastroparesis GERD (gastroesophageal reflux disease) Hepatic steatosis Hyperlipidemia Irritable bowel syndrome with diarrhea Kidney stones Migraines Osteoarthritis Peripheral neuropathy PTSD (post-traumatic stress disorder) Surgical History Surgical History History of back surgery History of cholecystectomy History of hysterectomy History of left oophorectomy History of surgery on left wrist History of tonsillectomy Family History Family History Father Hypertension Dementia Parkinsons disease Mother Hypertension Social Hist
[2024-05-17 22:43] LABS: Troponin I < 0.012 ng/mL (0.000-0.034)
[2024-05-17 22:45] LABS: Partial Thromboplastin Time 26.9 Seconds (22.3-36.8)
[2024-05-17 22:59] LABS: Influenza A QL RT-PCR Negative (Negative); Influenza B QL RT-PCR Negative (Negative); SARS-CoV-2 RNA PCR Negative (Negative)
[2024-05-17 23:13] LABS: Alanine Aminotransferase 32 U/L (6-35); Albumin Level 3.8 g/dL (3.5-5.1); Alkaline Phosphatase 81 U/L (38-126); Anion Gap 8 mmol/L (4-12); Aspartate Amino Transferase 24 U/L (14-36); Bilirubin,Total 0.4 mg/dL (0.2-1.3); Blood Urea Nitrogen 21 mg/dL (7-17); Calcium 8.9 mg/dL (8.4-10.2); Carbon Dioxide 23 mmol/L (22-30); Chloride 100 mmol/L (98-107); Estimated CRCL calculation 63 ml/min; Estimated Glomerular Filt Rate > 60; Glucose 130 mg/dL (65-110); Sodium 131 mmol/L (137-145)
[2024-05-17 23:23] LABS: Potassium 4.2 mmol/L (3.4-5.0)
[2024-05-18] MEDS: MORPHINE SULFATE (*CRX) 4 MG/ML INJ IV PUSH (00:33)
[2024-05-18] MEDS: KETOROLAC 15 MG/ML VIAL (*BKC) IV PUSH (00:33)
[2024-05-18] MEDS: ONDANSETRON INJ 4 MG/2 ML VIAL IV PUSH (00:33)
[2024-05-18 00:48] VITALS: BP 144/80; PULSE 52; RESP 15; O2SAT 100
== END 2024-05-18 00:49 | disposition home or self-care (01) ==
PROVIDERS: Emergency Provider Emergency Medicine
DX: R53.1 Weakness (principal); R42 Dizziness and giddiness; Z20.822 Contact with and (suspected) exposure to COVID-19; Z87.891 Personal history of nicotine dependence; F41.9 Anxiety disorder, unspecified; F31.9 Bipolar disorder, unspecified; I25.10 Atherosclerotic heart disease of native coronary artery without angina pectoris; E11.9 Type 2 diabetes mellitus without complications; K21.9 Gastro-esophageal reflux disease without esophagitis; K76.0 Fatty (change of) liver, not elsewhere classified; E78.5 Hyperlipidemia, unspecified; Z87.442 Personal history of urinary calculi; M19.90 Unspecified osteoarthritis, unspecified site; F43.10 Post-traumatic stress disorder, unspecified; Z79.4 Long term (current) use of insulin; Z79.84 Long term (current) use of oral hypoglycemic drugs
CPT/HCPCS: 36415; 70450; 71046; 80053; 83735; 84484; 85025; 85610; 85730; 87636; 93005; 96374; 96375; 99284; J1885; J2270; J2405

== ENCOUNTER 2024-07-11 19:35 | Emergency (ER) | payer OTHER, SELFPAY ==
--- NOTE | ~2024-07-11 | XR_ITS ---
Portable chest x-ray Comparison: 05/17/2024 Clinical History: Shortness of breath Findings: Stable linear scarring right midlung. Lungs are otherwise clear, without focal consolidati on or pleural effusion. Cardiomediastinal silhouette is stable. Bones and soft tissues are unremarka ble. Impression: No acute abnormality. Stable linear scarring right midlung. Reviewed, dictated and finalized at location . INVESTMENT/PORTFOLIO MANAGER Impression: No acute abnormality. Stable linear scarring right midlung.
--- NOTE | ~2024-07-11 | CT_ITS ---
CT of the Abdomen and Pelvis: Indication: Diverticulitis Technique: 2.5 mm axial scans were obtained through the abdomen and pelvis following intravenous adm inistration of 100 cc of Omnipaque 350. Dose reduction technique was used on this scan by utilizing a utomated exposure control and iterative reconstruction technique. The dose-length product (DLP) was 7 76.48 mGy-cm. COMPARISON: 11/06/2023 Findings: Scans through the lung bases demonstrate stable 5 mm medial right middle lobe pulmonary no dule (axial image 17).. The liver, spleen, pancreas, adrenals and left kidney are within normal limits. Cholecystectomy clips are present. There is duplication of the right renal collecting system. No evidence of aortic aneury sm. No lymphadenopathy. No bowel obstruction or bowel wall thickening. There is no evidence to suggest acute appendicitis. Images through the pelvis were performed. There is diffuse urinary bladder wall thickening. Status po st hysterectomy. No pelvic mass seen. No ascites. Impression: Cystitis. Duplication right renal collecting system. Stable 5 mm right middle lobe pulmonary nodule, as detailed above. Reviewed, dictated and finalized at location . DARY APPRENTICE Impression: Cystitis. Duplication right renal collecting system. Stable 5 mm right middle lobe pulmonary nodule, as detailed above.
[2024-07-11 19:40] VITALS: BP 133/77; PULSE 76; RESP 16; TEMP 36.6; O2SAT 97
[2024-07-12] VITALS (10 sets, daily range): BP systolic 99–133; BP diastolic 58–82; PULSE 71–83; RESP 18–20; O2SAT 95–99
--- NOTE | 2024-07-12 00:54 | ECG_ITS ---
Test Date: 2024-07-12 02:15:28 Measurements Intervals [place] Rate: 69 P: 48 VA: 285 QRS: -63 QRSD: 101 T: -28 QT: 413 QTc: 445 Interpretive Statements SINUS RHYTHM WITH FIRST DEGREE AV BLOCK LEFT AXIS DEVIATION INCOMPLETE RIGHT BUNDLE BRANCH BLOCK LOW QRS VOLTAGE IN PRECORDIAL LEADS CONSIDER INFERIOR INFARCT, AGE INDETERMINATE CONSIDER ANTERIOR INFARCT, AGE INDETERMINATE ST-T WAVE ABNORMALITY IN ANTERIOR LEADS- CONSIDER ISCHEMIA BASELINE ARTIFACT- I, III, AVR, AVL, AVF ABNORMAL ECG Compared to ECG 05/17/2024 20:34:48 HEART RATE HAS INCREASED POSSIBLE ISCHEMIA NOW PRESENT Electronically Signed On 07-12-2024 05:58:35 ORDER CHECKER by Ruy Gayle D.O.
--- NOTE | 2024-07-12 00:55 | ED_ITS ---
HPI - General Adult General Chief complaint: Unspecified <Kathie Cruz PA-C - Last Filed: 07/12/24 17:17> Stated complaint: upper respiratory/diverticulitis/UTI <Kathie Cruz PA-C - Last Filed: 07/12/24 17:17> Time Seen by Provider: 07/12/24 00:42 <Kathie Cruz PA-C - Last Filed: 07/12/24 17:17> History of Present Illness HPI narrative: 59-year-old female with history of IBS, hyperlipidemia, GERD, bipolar, CAD, insulin-dependent DM presents to the emergency department with multiple medical complaints. Patient is reporting 10 days of cough, congestion, diffuse abdominal pain, N/V/D, diarrhea that is not turned and constipation. She is concerned she may have a URI and diverticulitis. She is also reporting dysuria, urinary frequency and urgency. Denies hematuria. States her abdominal pain starts in her bilateral upper quadrants and radiates down into her suprapubic region. Denies fever, chest pain. <Kathie Cruz PA-C - Last Filed: 07/12/24 17:17> Related Data Home medications: Home Medications Medication Instructions Recorded Confirmed albuterol sulfate 90 mcg/actuation 2 puff inhalation QID PRN SOB 01/17/20 10/21/23 aerosol inhaler aspirin 81 mg chewable tablet 81 mg PO DAILY 01/17/20 10/21/23 atorvastatin 80 mg tablet 80 mg PO HS 01/17/20 10/21/23 budesonide-formoterol HFA 80 2 puff inhalation DAILY 01/17/20 10/21/23 mcg-4.5 mcg/actuation aerosol inhaler (Symbicort) citalopram 40 mg tablet 40 mg PO DAILY 01/17/20 10/21/23 cromolyn 4 % eye drops 1 drp ophthalmic (eye) 4-6XD 01/17/20 10/21/23 famotidine 20 mg tablet 20 mg PO HS 01/17/20 10/21/23 fluticasone propionate 50 1 spray intranasal DAILY 01/17/20 10/21/23 mcg/actuation nasal spray,suspension insulin lispro 100 unit/mL 1 sliding scale dose subcut 01/17/20 10/21/23 subcutaneous solution (Admelog USEASDIRECTD U-100 Insulin lispro) isosorbide mononitrate 60 mg 60 mg PO DAILY 01/17/20 10/21/23 tablet,extended release 24 hr lisinopril 10 mg tablet 10 mg PO DAILY 01/17/20 10/21/23 lorazepam 1 mg tablet 1 mg PO DAILY 01/17/20 10/21/23 metformin 1,000 mg tablet 1,000 mg PO BID 01/17/20 10/21/23 metoprolol tartrate 50 mg tablet 50 mg PO Q12H 01/17/20 10/21/23 montelukast 10 mg tablet 10 mg PO DAILY 01/17/20 10/21/23 nitroglycerin 0.4 mg sublingual 0.4 mg sublingual Q5-15M PRN Chest 01/17/20 10/21/23 tablet Pain sumatriptan succinate 25 mg tablet 50 mg PO DAILY PRN Migranes 01/17/20 10/21/23 trazodone 100 mg tablet 100 mg PO HS 01/17/20 10/21/23 dicyclomine 10 mg capsule 10 mg PO QID PRN Diarrhea 06/15/20 10/21/23 gabapentin 600 mg tablet 600 mg PO TID 06/15/20 10/21/23 liraglutide 0.6 mg/0.1 mL (18 mg/3 0.6 mg subcut DAILY 06/15/20 10/21/23 mL) subcutaneous pen injector (Victoza 2-Amanuel) naproxen 500 mg tablet 500 mg PO DAILY 06/15/20 10/21/23 omeprazole 40 mg capsule,delayed 40 mg PO DAILY 05/19/22 10/21/23 release pioglitazone 15 mg tablet (Actos) 15 mg PO DAILY 05/19/22 10/21/23 <Kathie Cruz PA-C - Last Filed: 07/12/24 17:17> Allergies/adverse reactions: Allergies Allergy/AdvReac Type Severity Reaction Status Date / Time No Known Allergies Allergy Verified 05/17/24 20:22 <Kathie Cruz PA-C - Last Filed: 07/12/24 17:17> Review of Systems Review of Systems: All systems reviewed & are unremarkable except as noted in HPI and below <Kathie Cruz PA-C - Last Filed: 07/12/24 17:17> [facility] Past Medical History Medical History: Medical History Anxiety Bipolar disorder Coronary artery disease Diabetes mellitus Gastroparesis GERD (gastroesophageal reflux disease) Hepatic steatosis Hyperlipidemia Irritable bowel syndrome with diarrhea Kidney stones Migraines Osteoarthritis Peripheral neuropathy PTSD (post-traumatic stress disorder) <Kathie Crzu PA-C - Last Filed: 07/12/24 17:17> Surgical History Surgical History: Surgical History History of back surgery History of cholecystectomy History of hysterectomy History of left oophorectomy History of surgery on left wrist History of tonsillectomy <Kathie Cruz PA-C - Last Filed: 07/12/24 17:17> Family History Family History: Family History Father Hypertension Dementia Parkinsons disease Mother Hypertension <Kathie Cruz PA-C - Last Filed: 07/12/24 17:17> Social History Social History: Social History Smoking packs per day: 1 Smoking cigarettes per day: 20.0 Years smoked: 25 Smoking pack-years: 25.00 Smoking status: Former smoker Tobacco type: cigarettes Second hand tobacco smoke exposure: No Alcohol intake: never Substance use: current Substance use type: marijuana Living arrangements: with family Occupation/Education: unemployed Gender identity (if verbalized by the patient): Female Spiritual care concerns: No <Kathie Cruz PA-C - Last Filed: 07/12/24 17:17> Exam Narrative: GENERAL: Well-appearing, well-nourished, and in no acute distress. HEAD: Normocephalic, atraumatic. EYES: EOMI. ENT: Nares clear, no rhinorrhea or epistaxis. Mucous membranes moist. NECK: Supple. CHEST: Clear to auscultation. No respiratory distress. HEART: Regular rate and rhythm. No murmur heard. Normal peripheral pulses. ABDOMEN: Normoactive bowel sounds. Abdomen soft diffuse tenderness. No rebound, guarding or rigidity. No CVA tenderness. EXTREMITIES: Normal range of motion. No edema. SKIN: Warm, dry, no rash. NEURO: No focal deficits. Alert and oriented x3 <Kathie Cruz PA-C - Last Filed: 07/12/24 17:17> Course Vital Signs Vital signs: Vital Signs Temperature 97.8 F 07/11/24 19:40 Pulse Rate 76 07/11/24 19:40 Respiratory Rate 16 07/11/24 19:40 Blood Pressure 133/77 07/11/24 19:40 Pulse Oximetry 97 07/11/24 19:40 Temperature 97.8 F 07/11/24 19:40 Pulse Rate 83 07/12/24 07:03 Respiratory Rate 20 07/12/24 07:05 Blood Pressure 128/82 07/12/24 07:03 Pulse Oximetry 97 07/12/24 07:05 <Kathie Cruz PA-C - Last Filed: 07/12/24 17:17> Vital Signs Temperature 97.8 F 07/11/24 19:40 Pulse Rate 76 07/11/24 19:40 Respiratory Rate 16 07/11/24 19:40 Blood Pressure 133/77 07/11/24 19:40 Pulse Oximetry 97 07/11/24 19:40 Temperature 97.8 F 07/11/24 19:40 Pulse Rate 83 07/12/24 07:03 Respiratory Rate 20 07/12/24 07:05 Blood Pressure 128/82 07/12/24 07:03 Pulse Oximetry 97 07/12/24 07:05 <Makenzie Bates MD - Last Filed: 07/12/24 06:31> Medical Decision Making MDM Narrative Medical decision making narrative: 59-year-old female presents emergency department for multiple medical comp laints including cough, congestion, abdominal pain, N/V/D and urinary symptoms. Vitals are stable. Patient is afebrile nontoxic appearing. Exam is significant for the above. EKG shows sinus rhythm with first-degree AV block with a AK interval at 285, normal QRS duration, normal QTC, no ischemic changes. Troponin undetectable. Troponin undetectable. CBC with leukocytosis of 12.2. Chemistries are unremarkable. COVID and flu are negative. Chest x-ray shows no acute cardiopulmonary findings. Lipase is normal. Pending CT abdomen pelvis at time of sign-out to Dr. Bates. <Kathie Cruz PA-C - Last Filed: 07/12/24 17:17> 59-year-old female presents emergency department for multiple medical complaints including cough, congestion, abdominal pain, N/V/D and urinary symptoms. Vitals are stable. Patient is afebrile nontoxic appearing. Exam is significant for the above. EKG shows sinus rhythm with first-degree AV block with a [place] interval at 285, normal QRS duration, normal QTC, no ischemic changes. Troponin undetectable. Troponin undetectable. CBC with leukocytosis of 12.2. Chemistries are unremarkable. COVID and flu are negative. Chest x-ray shows no acute cardiopulmonary findings. Lipase is normal. Pending CT abdomen pelvis at time of sign-out to Dr. Bates. Paulo: Patient was signed out to nd pending urinalysis and CT abdomen pelvis with IV contrast. CT was obtained revealing evidence of cystitis otherwise no acute process. Patient's urinalysis did reveal urinary tract infection. Patient was informed of this at bedside and that she will be started on oral antibiotics to take for the next week. She was administered a dose of Rocephin 2 g IV prior to discharge. Patient was also provided with a script for Pyridium to use as prescribed for her dysuria. She was instructed to follow-up with her primary care physician within the next 3-5 days and to return to the emergency department if any new or worsening symptoms develop. She was discharged in stable condition. <Makenzie Bates MD - Last Filed: 07/12/24 06:31> Vital Signs Vital Signs: Vital Signs Temperature 97.8 F 07/11/24 19:40 Pulse Rate 76 07/11/24 19:40 Respiratory Rate 16 07/11/24 19:40 Blood Pressure 133/77 07/11/24 19:40 Pulse Oximetry 97 07/11/24 19:40 Temperature 97.8 F 07/11/24 19:40 Pulse Rate 83 07/12/24 07:03 Respiratory Rate 20 07/12/24 07:05 Blood Pressure 128/82 07/12/24 07:03 Pulse Oximetry 97 07/12/24 07:05 <Kathie Cruz PA-C - Last Filed: 07/12/24 17:17> Vital Signs Temperature 97.8 F 07/11/24 19:40 Pulse Rate 76 07/11/24 19:40 Respiratory Rate 16 07/11/24 19:40 Blood Pressure 133/77 07/11/24 19:40 Pulse Oximetry 97 07/11/24 19:40 Temperature 97.8 F 07/11/24 19:40 Pulse Rate 83 07/12/24 07:03 Respiratory Rate 20 07/12/24 07:05 Blood Pressure 128/82 07/12/24 07:03 Pulse Oximetry 97 07/12/24 07:05 <Makenzie Bates MD - Last Filed: 07/12/24 06:31> Lab Data Result diagrams: 07/12/24 01:29 07/12/24 01:29 <Kathie Cruz PA-C - Last Filed: 07/12/24 17:17> Labs: Lab Results 07/12/24 07/12/24 Range/Units 01:29 02:58 WBC 12.2 H (4.5-10.0) K/mm3 RBC 4.79 (4.2-5.4) M/mm3 Hgb 12.3 (12.0-15.0) g/dL Hct 37.1 (37.0-47.0) % MCV 77.5 L (80-100) fl MCH 25.7 L (26-34) pg MCHC 33.2 (32-36) g/dl RDW 14.2 (11.5-14.5) % Plt Count 252 (150-375) k/mm3 MPV 10.8 H (7.4-10.4) fl Immature Gran % (Auto) 0.4 (0-0.5) % Neut % (Auto) 54.9 (45.5-73.1) % Lymph % (Auto) 25.9 (18.3-44.2) % [place] % (Auto) 9.5 H (2.6-8.5) % Eos % (Auto) 8.6 H (0-4.4) % Baso % (Auto) 0.7 (0.2-1.2) % Lymph # (Auto) 3.15 (0.9-3.2) K/mm3 [place] # (Auto) 1.2 H (0.1-0.6) K/mm3 Eos # (Auto) 1.1 H (0-0.3) K/mm3 Baso # (Auto) 0.1 (0.0-0.1) K/mm3 Abs Immat Gran (auto) 0.05 H (0.00-0.031) K/mm3 Absolute Neuts (auto) 6.7 (1.3-6.7) K/mm3 Absolute Nucleated RBC 0.000 (0.0-0.012) K/mm3 Nucleated RBC % 0.0 (0.0-0.2) % Sodium 135 L (137-145) mmol/L Potassium 3.9 (3.4-5.0) mmol/L Chloride 102 (98-107) mmol/L Carbon Dioxide 22 (22-30) mmol/L Anion Gap 11 (4-12) mmol/L BUN 13 D (7-17) mg/dL Creatinine 0.90 (0.7-1.0) mg/dL Estim Creat Clear Calc 64 ml/min Estimated GFR > 60 (59 - ) Glucose 101 (65-110) mg/dL Calcium 9.2 (8.4-10.2) mg/dL Magnesium 1.6 (1.6-2.3) mg/dL Total Bilirubin 0.5 (0.2-1.3) mg/dL AST 22 (14-36) U/L ALT 20 (6-35) U/L Alkaline Phosphatase 80 (38-126) U/L Troponin I < 0.012 (0.000-0.034) ng/mL Total Protein 7.0 (6.3-8.2) g/dL Albumin 4.0 (3.5-5.1) g/dL Lipase 148 (23-300) U/L Urine Color Yellow (Yellow) Urine Appearance Cloudy H (Clear) Urine pH 5.5 (5.0-9.0) Ur Specific [place] 1.016 (1.001-1.035) Urine Protein Negative (Negative) mg/dL Urine Glucose (UA) 3+ H (Negative) mg/dL Urine Ketones Negative (Negative) mg/dL Ur Blood (Man) Negative (Negative) Urine Nitrate Positive H (Negative) Urine Bilirubin Negative (Negative) Urine Urobilinogen 0.2 (<2.0) mg/dL Leukocyte Esterase Rfl 2+ H (Negative) JOSE F/UL Urine RBC 0-2 (0-2) /hpf Urine WBC >100 H (0-3) /hpf Ur Squamous Epith Cells None seen (Few) /hpf Urine Bacteria 4+ H /hpf Urine Casts 0-2 Influenza A (RT-PCR) Negative (Negative) Influenza B (RT-PCR) Negative (Negative) SARS-CoV-2 RNA (RT-PCR) Negative (Negative) <Kathie Cruz PA-C - Last Filed: 07/12/24 17:17> Lab Results 07/12/24 07/12/24 Range/Units 01:29 02:58 WBC 12.2 H (4.5-10.0) K/mm3 RBC 4.79 (4.2-5.4) M/mm3 Hgb 12.3 (12.0-15.0) g/dL Hct 37.1 (37.0-47.0) % MCV 77.5 L (80-100) fl MCH 25.7 L (26-34) pg MCHC 33.2 (32-36) g/dl RDW 14.2 (11.5-14.5) % Plt Count 252 (150-375) k/mm3 MPV 10.8 H (7.4-10.4) fl Immature Gran % (Auto) 0.4 (0-0.5) % Neut % (Auto) 54.9 (45.5-73.1) % Lymph % (Auto) 25.9 (18.3-44.2) % [place] % (Auto) 9.5 H (2.6-8.5) % Eos % (Auto) 8.6 H (0-4.4) % Baso % (Auto) 0.7 (0.2-1.2) % Lymph # (Auto) 3.15 (0.9-3.2) K/mm3 [place] # (Auto) 1.2 H (0.1-0.6) K/mm3 Eos # (Auto) 1.1 H (0-0.3) K/mm3 Baso # (Auto) 0.1 (0.0-0.1) K/mm3 Abs Immat Gran (auto) 0.05 H (0.00-0.031) K/mm3 Absolute Neuts (auto) 6.7 (1.3-6.7) K/mm3 Absolute Nucleated RBC 0.000 (0.0-0.012) K/mm3 Nucleated RBC % 0.0 (0.0-0.2) % Sodium 135 L (137-145) mmol/L Potassium 3.9 (3.4-5.0) mmol/L Chloride 102 (98-107) mmol/L Carbon Dioxide 22 (22-30) mmol/L Anion Gap 11 (4-12) mmol/L BUN 13 D (7-17) mg/dL Creatinine 0.90 (0.7-1.0) mg/dL Estim Creat Clear Calc 64 ml/min Estimated GFR > 60 (59 - ) Glucose 101 (65-110) mg/dL Calcium 9.2 (8.4-10.2) mg/dL Magnesium 1.6 (1.6-2.3) mg/dL Total Bilirubin 0.5 (0.2-1.3) mg/dL AST 22 (14-36) U/L ALT 20 (6-35) U/L Alkaline Phosphatase 80 (38-126) U/L Troponin I < 0.012 (0.000-0.034) ng/mL Total Protein 7.0 (6.3-8.2) g/dL Albumin 4.0 (3.5-5.1) g/dL Lipase 148 (23-300) U/L Urine Color Yellow (Yellow) Urine Appearance Cloudy H (Clear) Urine pH 5.5 (5.0-9.0) Ur Specific [place] 1.016 (1.001-1.035) Urine Protein Negative (Negative) mg/dL Urine Glucose (UA) 3+ H (Negative) mg/dL Urine Ketones Negative (Negative) mg/dL Ur Blood (Man) Negative (Negative) Urine Nitrate Positive H (Negative) Urine Bilirubin Negative (Negative) Urine Urobilinogen 0.2 (<2.0) mg/dL Leukocyte Esterase Rfl 2+ H (Negative) JOSE F/UL Urine RBC 0-2 (0-2) /hpf Urine WBC >100 H (0-3) /hpf Ur Squamous Epith Cells None seen (Few) /hpf Urine Bacteria 4+ H /hpf Urine Casts 0-2 Influenza A (RT-PCR) Negative (Negative) Influenza B (RT-PCR) Negative (Negative) SARS-CoV-2 RNA (RT-PCR) Negative (Negative) <Makenzie Bates MD - Last Filed: 07/12/24 06:31> Discharge Plan Discharge Clinical Impression: Urinary tract infection, Cystitis, Abdominal pain, Acute viral syndrome <Kathie Cruz PA-C - Last Filed: 07/12/24 17:17> Patient Disposition: Home, Self-Care <Kathie Cruz PA-C - Last Filed: 07/12/24 17:17> Condition: Improved <Kathie Cruz PA-C - Last Filed: 07/12/24 17:17> Instructions: Antibiotic Form, Urinary Tract Infection in Women (DC), Viral Syndrome (ED), Abdominal Pain (ED) <Kathie Cruz PA-C - Last Filed: 07/12/24 17:17> Additional Instructions: Please follow-up with your family doctor within the next 3-5 days. Return to the emergency department if any new or worsening symptoms develop. Take the prescribed antibiotic as instructed. <Kathie Cruz PA-C - Last Filed: 07/12/24 17:17> Prescriptions: New cephalexin 500 mg capsule 500 mg PO Q12H 7 Days Qty: 14 0RF phenazopyridine [Pyridium] 200 mg tablet 200 mg PO TID Qty: 6 0RF No Action hydrocortisone 1 % cream 1 applic topical TID PRN (Reason: skin irritation) Qty: 28.35 0RF gabapentin 600 mg tablet 600 mg PO TID dicyclomine 10 mg capsule 10 mg PO QID PRN (Reason: Diarrhea) naproxen 500 mg tablet 500 mg PO DAILY Victoza 2-Amanuel 0.6 mg/0.1 mL (18 mg/3 mL) pen injector 0.6 mg SUBCUT DAILY sumatriptan succinate 25 mg Tablet 50 mg PO DAILY PRN (Reason: Migranes) atorvastatin 80 mg Tablet 80 mg PO HS citalopram 40 mg Tablet 40 mg PO DAILY Rx Instructions: pt takes at noon cromolyn 4 % drops 1 drp ophthalmic (eye) 4-6XD isosorbide mononitrate 60 mg Tablet Extended Release 24 Hr 60 mg PO DAILY famotidine 20 mg Tablet 20 mg PO HS trazodone 100 mg Tablet 100 mg PO HS metformin 1,000 mg Tablet 1,000 mg PO BID lisinopril 10 mg Tablet 10 mg PO DAILY Rx Instructions: pt takes at noon metoprolol tartrate 50 mg Tablet 50 mg PO Q12H nitroglycerin 0.4 mg Tablet, Sublingual 0.4 mg SUBLINGUAL Q5-15M PRN (Reason: Chest Pain) aspirin 81 mg Tablet,Chewable 81 mg PO DAILY montelukast 10 mg Tablet 10 mg PO DAILY lorazepam 1 mg Tablet 1 mg PO DAILY insulin lispro [Admelog U-100 Insulin lispro] 100 unit/mL Solution 1 sliding scale dose SUBCUT USEASDIRECTD Rx Instructions: pt uses a insulin pump w/this insulin albuterol sulfate 90 mcg/actuation Hfa Aerosol Inhaler 2 puff INHALATION QID PRN (Reason: SOB) fluticasone propionate 50 mcg/actuation [place],Suspension 1 spray INTRANASAL DAILY budesonide-formoterol [Symbicort] 80-4.5 mcg/actuation Hfa Aerosol Inhaler 2 puff INHALATION DAILY Claritin-D 24 Hour 10-240 mg tablet extended release 24 hr 1 tablet PO DAILY Qty: 10 0RF ibuprofen 800 mg tablet 800 mg PO TID PRN (Reason: pain) Qty: 30 0RF cyclobenzaprine 10 mg tablet 10 mg PO TID PRN (Reason: muscle spasm) Qty: 14 0RF hydrocodone-acetaminophen 5-325 mg tablet 1 tablet PO Q6H PRN (Reason: pain) Qty: 5 0RF cyclobenzaprine 10 mg tablet 10 mg PO TID PRN (Reason: muscle spasm) Qty: 14 0RF ibuprofen 600 mg tablet 600 mg PO Q6H PRN (Reason: pain) Qty: 14 0RF acetaminophen 500 mg tablet 500 mg PO Q6H PRN (Reason: pain) Qty: 20 0RF pioglitazone [Actos] 15 mg Tablet 15 mg PO DAILY omeprazole 40 mg Capsule,Delayed Release(Dr/Ec) 40 mg PO DAILY cephalexin 500 mg capsule 500 mg PO Q6H 7 Days Qty: 28 0RF cephalexin 500 mg capsule 500 mg PO Q8H 5 Days Qty: 15 0RF <Kathie Cruz PA-C - Last Filed: 07/12/24 17:17> Follow-up/Referrals: René Cox MD [Physician] - 3 Days PHYSICIAN NOT ON STAFF,NONSTAFF [Primary Care Provider] - <Kathie Cruz PA-C - Last Filed: 07/12/24 17:17> Time of Disposition: 06:28 <Kathie Cruz PA-C - Last Filed: 07/12/24 17:17> 06:28 <Makenzie Bates MD - Last Filed: 07/12/24 06:31>
[2024-07-12] MEDS: SODIUM CHLORIDE 0.9% IV 1,000 ML 999 ML IV CONT (01:32)
[2024-07-12] MEDS: PANTOPRAZOLE SODIUM IV 40 MG VIAL IV PUSH (01:33)
[2024-07-12 01:40] LABS: Basophils Absolute Auto 0.1 K/mm3 (0.0-0.1); Basophils Percent Auto 0.7 % (0.2-1.2); Eosinophils Absolute Auto 1.1 K/mm3 (0-0.3); Eosinophils Percent Auto 8.6 % (0-4.4); Hematocrit 37.1 % (37.0-47.0); Hemoglobin 12.3 g/dL (12.0-15.0); Immature Granulocyte Absolute 0.05 K/mm3 (0.00-0.031); Immature Granulocyte Percent A 0.4 % (0-0.5); Lymphocytes Absolute Auto 3.15 K/mm3 (0.9-3.2); Lymphocytes Percent Auto 25.9 % (18.3-44.2); Mean Corpuscular HGB Conc 33.2 g/dl (32-36); Mean Corpuscular Hemoglobin 25.7 pg (26-34); Mean Corpuscular Volume 77.5 fl (80-100); Mean Platelet Volume 10.8 fl (7.4-10.4); Monocytes Absolute Auto 1.2 K/mm3 (0.1-0.6); Monocytes Percent Auto 9.5 % (2.6-8.5); Neutrophils Absolute Auto 6.7 K/mm3 (1.3-6.7); Neutrophils Percent Auto 54.9 % (45.5-73.1); Platelet Count Result 252 k/mm3 (150-375); Red Blood Count 4.79 M/mm3 (4.2-5.4); Red Cell Distribution Width 14.2 % (11.5-14.5); White Blood Count 12.2 K/mm3 (4.5-10.0)
[2024-07-12] MEDS: MORPHINE SULFATE (*CRX) 4 MG/ML INJ IV PUSH (02:10)
[2024-07-12 02:16] LABS: Influenza A QL RT-PCR Negative (Negative); Influenza B QL RT-PCR Negative (Negative); SARS-CoV-2 RNA PCR Negative (Negative)
[2024-07-12 02:18] LABS: Alanine Aminotransferase 20 U/L (6-35); Alkaline Phosphatase 80 U/L (38-126); Anion Gap 11 mmol/L (4-12); Aspartate Amino Transferase 22 U/L (14-36); Bilirubin,Total 0.5 mg/dL (0.2-1.3); Blood Urea Nitrogen 13 mg/dL (7-17); Calcium 9.2 mg/dL (8.4-10.2); Carbon Dioxide 22 mmol/L (22-30); Chloride 102 mmol/L (98-107); Estimated CRCL calculation 64 ml/min; Estimated Glomerular Filt Rate > 60; Glucose 101 mg/dL (65-110); Lipase 148 U/L (23-300); Magnesium 1.6 mg/dL (1.6-2.3); Potassium 3.9 mmol/L (3.4-5.0); Sodium 135 mmol/L (137-145)
[2024-07-12 02:28] LABS: Troponin I < 0.012 ng/mL (0.000-0.034)
--- NOTE | 2024-07-12 03:11 | PC.NURSE ---
Pt woken up from sleeping to obtain a urine sample. pt states her pain medicine has worn off . Pt in no signs of distress vape next to pt on med
[2024-07-12 04:09] LABS: Add Urine Microscopic? YES; Appearance Urine Cloudy (Clear); Bacteria Urine 4+ /hpf; Bilirubin Urine Negative (Negative); Blood Urine Negative (Negative); Color Urine Yellow (Yellow); Glucose Urine UA 3+ mg/dL (Negative); Ketones Urine Negative (Negative); Leukocyte Esterase Ur 2+ LEU/UL (Negative); Nitrate Urine Positive (Negative); Non Pathogenic Casts 0-2; Protein Urine Negative (Negative); RBC Urine 0-2 /hpf (0-2); Specific Grav Ur 1.016 (1.001-1.035); Squamous Epithelial Cell Urine None Seen /hpf (Few); Urobilinogen Urine 0.2 mg/dL (<2.0); WBC Urine >100 /hpf (0-3); pH Urine 5.5 (5.0-9.0)
[2024-07-12] MEDS: MORPHINE SULFATE (*CRX) 2 MG/ML INJ (04:52)
[2024-07-12] MEDS: cefTRIAXone 2 GM/NS 100 ML 2 GM/100 ML BAG IVPB (06:31)
== END 2024-07-12 07:05 | disposition home or self-care (01) ==
PROVIDERS: Physician Assistant; Emergency Provider Emergency Medicine
DX: B34.9 Viral infection, unspecified (principal); N30.90 Cystitis, unspecified without hematuria; Z20.822 Contact with and (suspected) exposure to COVID-19; I25.10 Atherosclerotic heart disease of native coronary artery without angina pectoris; E11.43 Type 2 diabetes mellitus with diabetic autonomic (poly)neuropathy; K31.84 Gastroparesis; E11.42 Type 2 diabetes mellitus with diabetic polyneuropathy; E78.5 Hyperlipidemia, unspecified; K58.0 Irritable bowel syndrome with diarrhea; K21.9 Gastro-esophageal reflux disease without esophagitis; M19.90 Unspecified osteoarthritis, unspecified site; F43.10 Post-traumatic stress disorder, unspecified; F31.9 Bipolar disorder, unspecified; F41.9 Anxiety disorder, unspecified; Z87.442 Personal history of urinary calculi; Z87.891 Personal history of nicotine dependence; Z90.49 Acquired absence of other specified parts of digestive tract; Z90.710 Acquired absence of both cervix and uterus; Z90.721 Acquired absence of ovaries, unilateral; Z79.84 Long term (current) use of oral hypoglycemic drugs; Z79.85 Long-term (current) use of injectable non-insulin antidiabetic drugs; Z79.899 Other long term (current) drug therapy; Z79.82 Long term (current) use of aspirin; I44.0 Atrioventricular block, first degree; I45.10 Unspecified right bundle-branch block; R94.31 Abnormal electrocardiogram [ECG] [EKG]
CPT/HCPCS: 36415; 71045; 74177; 80053; 81001; 83690; 83735; 84484; 85025; 87086; 87636; 93005; 96361; 96365; 96375; 96376; 99284; J0696; J2270; J2470; J7030; Q9967

== ENCOUNTER 2024-09-16 12:26 | Emergency (ER) | payer OTHER, SELFPAY ==
--- NOTE | 2024-09-16 12:29 | ED_ITS ---
HPI - Skin/Abscess/Foreign Bdy General Chief complaint: Skin/Abscess/Foreign Body Stated complaint: spider bite Time Seen by Provider: 09/16/24 12:29 Source: patient Mode of arrival: ambulatory Limitations: no limitations History of Present Illness HPI narrative: Patient is a 59-year-old female presents with insect bite to posterior right upper arm. Patient states she was taking a nap when she woke up with arm burning mode pain. Since then it has blistered. Patient has not taken anything for pain. Patient reports pain 7/10. Denies any drainage from wound, redness growing in size or streaking up the arm. Denies any fever, chills, nausea, vomiting, diarrhea. Related Data Home Medications ?Medication ?Instructions ?Recorded ?Confirmed ?Last Taken ?Type albuterol sulfate 90 mcg/actuation 2 puff inhalation QID PRN SOB 01/17/20 09/16/24 Unknown History aerosol inhaler aspirin 81 mg chewable tablet 81 mg PO DAILY 01/17/20 09/16/24 05/17/22 09:00 History atorvastatin 80 mg tablet 80 mg PO HS 01/17/20 09/16/24 05/17/22 21:00 History budesonide-formoterol HFA 80 2 puff inhalation DAILY 01/17/20 09/16/24 05/18/22 History mcg-4.5 mcg/actuation aerosol inhaler (Symbicort) citalopram 40 mg tablet 40 mg PO DAILY 01/17/20 09/16/24 05/17/22 12:00 History cromolyn 4 % eye drops 1 drp ophthalmic (eye) 4-6XD 01/17/20 09/16/24 05/17/22 History famotidine 20 mg tablet 20 mg PO HS 01/17/20 09/16/24 05/17/22 21:00 History fluticasone propionate 50 1 spray intranasal DAILY 01/17/20 09/16/24 01/17/20 History mcg/actuation nasal spray,suspension insulin lispro 100 unit/mL 1 sliding scale dose subcut 01/17/20 09/16/24 01/17/20 History subcutaneous solution (Admelog USEASDIRECTD U-100 Insulin lispro) isosorbide mononitrate 60 mg 60 mg PO DAILY 01/17/20 09/16/24 01/17/20 History tablet,extended release 24 hr lisinopril 10 mg tablet 10 mg PO DAILY 01/17/20 09/16/24 05/17/22 12:00 History lorazepam 1 mg tablet 1 mg PO DAILY 01/17/20 09/16/24 01/17/20 History metformin 1,000 mg tablet 1,000 mg PO BID 01/17/20 09/16/24 01/17/20 History metoprolol tartrate 50 mg tablet 50 mg PO Q12H 01/17/20 09/16/24 01/17/20 History montelukast 10 mg tablet 10 mg PO DAILY 01/17/20 09/16/24 01/16/20 History nitroglycerin 0.4 mg sublingual 0.4 mg sublingual Q5-15M PRN Chest 01/17/20 09/16/24 Unknown History tablet Pain sumatriptan succinate 25 mg tablet 50 mg PO DAILY PRN Migranes 01/17/20 09/16/24 Unknown History trazodone 100 mg tablet 100 mg PO HS 01/17/20 09/16/24 01/16/20 History dicyclomine 10 mg capsule 10 mg PO QID PRN Diarrhea 06/15/20 09/16/24 05/17/22 09:00 History gabapentin 600 mg tablet 600 mg PO TID 06/15/20 09/16/24 Unknown History omeprazole 40 mg capsule,delayed 40 mg PO DAILY 05/19/22 09/16/24 Unknown History release Allergies Allergy/AdvReac Type Severity Reaction Status Date / Time No Known Allergies Allergy Verified 09/16/24 12:33 Review of Systems 2 Review of Systems: All systems reviewed & are unremarkable except as noted in HPI and below Constitutional: Constitutional: Denies body ache(s), Denies chills, Denies fatigue, Denies fever(s), Denies headache(s), Denies malaise and Denies weakness Eyes: Eyes: Denies blurry vision, Denies irritation and Denies loss of vision ENT: Denies otalgia, Denies headache(s), Denies nasal discharge, Denies sinus pain and Denies sore throat Cardiovascular: Cardiovascular: Denies chest pain, Denies irregular heart rhythm and Denies dyspnea Respiratory: Respiratory: Denies dyspnea Gastrointestinal: Gastrointestinal: Denies abdominal pain, Denies melena, Denies hematochezia, Denies diarrhea, Denies nausea and Denies vomiting Musculoskeletal: Musculoskeletal: Denies back pain, Denies myalgias and Denies arthralgias Integumentary/Breasts: Skin/Breast: Denies pruritus, Reports erythema, Denies rash and Reports wounds Neurologic: Denies headache(s), Denies loss of vision and Denies weakness Psychiatric: Psychiatric: Reports no additional psychiatric complaints Endocrine: Endocrine: Denies fatigue PMFSH Past Medical History Medical History Irritable bowel syndrome with diarrhea Kidney stones Hepatic steatosis Migraines GERD (gastroesophageal reflux disease) Osteoarthritis Bipolar disorder Anxiety PTSD (post-traumatic stress disorder) Gastroparesis Peripheral neuropathy Hyperlipidemia Diabetes mellitus Coronary artery disease Surgical History Surgical History History of surgery on left wrist History of back surgery History of left oophorectomy History of hysterectomy History of cholecystectomy History of tonsillectomy Family History Family History Father Hypertension Dementia Parkinsons disease Mother Hypertension Social History Social History Smoking packs per day: 1 Smoking cigarettes per day: 20.0 Years smoked: 25 Smoking pack-years: 25.00 Smoking status: Former smoker Tobacco type: cigarettes Second hand tobacco smoke exposure: No Alcohol intake: never Substance use: current Substance use type: marijuana Living arrangements: with family Occupation/Education: unemployed Gender identity (if verbalized by the patient): Female Spiritual care concerns: No Comments At time of signature, agree with nursing past medical, surgical, social and family history. There is no relevant family history pertinent to the presenting complaint. Exam 2 Const: General: cooperative, healthy appearing, comfortable, no acute distress and well nourished Nutritional Appearance: well nourished O rientation/consciousness: patient oriented x3 Limitations: no limitations HENMT: Head: normal to inspection, normocephalic and atraumatic Ears: h earing grossly normal bilaterally and external ears normal Face/Nose/Sinus: N ormal external nose present, normal facial exam and face symmetric Face and sinus: normal facial exam and face symmetric Mouth: Yes lip normal Eyes: General: appearance normal, both eyes and all related structures A lignment and Position: alignment normal and position normal Periorbital: p eriorbital findings normal Eyelids: eyelids normal Pupils: Equal, round and reactive pupils present EOM: EOMs intact bilaterally Neck: Neck: normal visual inspection, full ROM and supple Chest: Chest palpation & inspection: normal inspection of the chest Resp: Effort & Inspection: normal respiratory effort and able to speak in complete sentences Auscultation: clear to auscultation bilaterally Cardio: Rate: regular rate Rhythm: regular rhythm Heart sounds: S1 normal heart sound present and S2 normal heart sound present GI: Inspection: normal to inspection Skin: General skin exam: normal color and no rashes or lesions noted L esions: lesion noted vesicle right posterior upper arm size (2x2 [place]), borders well-defined, color with an erythematous base, surface and tender Full body images: 1. 2x2 cm area of erythema and warmth. NO drainage 2. 2x2 cm area of erythema and warmth. 1 cm in diameter serous fluid filled blister at distal portion. No drainage Neuro: General: patient oriented x3 and moves all extremities Cranial nerves: Yes Equal, round and reactive pupils present Speech: normal speech Gait exam (Neuro): Normal gait present Extrem: General: normal to inspection, full ROM and no edema Psych: Appearance: grossly normal and well kempt Mental Status: mental status grossly normal Speech and movement: Normal speech and movement present Affect: normal affect Attitude: cooperative Thought process: Normal thought process present Course Course Emergency Course: Patient is aware of diagnosis, understands and agrees to treatment plan. Anticipatory guidance given. Patient agrees to follow-up as directed and is aware of reasons to seek care at the emergency department. Portions of this record may have been created with voice recognition software Level of Care: Express Care Visit Vital Signs Vital signs: Reviewed MDM - Skin/Abscess/Foreign Bdy MDM Narrative Medical decision making narrative: Pt well hydrated appearing, in no respiratory distress, hemodynamically stable. Recommend supportive care. The patient is stable at time of discharge the clinical impression was discussed and the patient was given the opportunity to ask questions, which were addressed as completely as possible given the information available at present. Anticipatory guidance and return to care precautions were discussed and the importance of primary care follow-up was stressed and encouraged. The patient voiced understanding of the plan, indications to return, and the need for follow-up. Exam findings show no acute concerns or changes Patient is appropriate for outpatient treatment and follow-up. Differential Diagnosis Differential diagnosis: Likely abscess of skin or subcutaneous tissue, cellulitis and insect bites Medical Records Attestation: I reviewed the patient's medical records. Discharge Plan Discharge Clinical Impression: Insect bite Patient Disposition: Home, Self-Care Condition: Stable Instructions: Insect Bite or Sting (ED) Additional Instructions: Take antibiotics as prescribed until completed. Clean with soap and water only; Avoid using alcohol and peroxide Alternate Tylenol/ibuprofen for as needed for pain Acetaminophen(Tylenol) 650- 1000mg every 4-6hours with max of 4000mg/day. Nonsteroidal anti-inflammatory agent (NSAIDs-ibuprofen): 400mg every 4-6hours with max 2400mg/day Apply ice to area 15 minutes on 15 minutes off Please schedule a follow up visit with your personal physician for further evaluation and treatment within 3-5days OR if your symptoms persist, change or worsen significantly before you can contact your personal physician then please, without delay, go to the emergency department for further evaluation. If you experience any worsening redness, swelling, streaking (red lines), fever or chills please go to the ER Patient Language: Bel[place]ian Prescriptions: New doxycycline monohydrate 100 mg tablet 100 mg PO BID 10 Days Qty: 20 0RF mupirocin 2 % ointment 1 applic topical BID Qty: 15 0RF No Action hydrocortisone 1 % cream 1 applic topical TID PRN (Reason: skin irritation) Qty: 28.35 0RF gabapentin 600 mg tablet 600 mg PO TID dicyclomine 10 mg capsule 10 mg PO QID PRN (Reason: Diarrhea) sumatriptan succinate 25 mg Tablet 50 mg PO DAILY PRN (Reason: Migranes) atorvastatin 80 mg Tablet 80 mg PO HS citalopram 40 mg Tablet 40 mg PO DAILY Rx Instructions: pt takes at noon cromolyn 4 % drops 1 drp ophthalmic (eye) 4-6XD isosorbide mononitrate 60 mg Tablet Extended Release 24 Hr 60 mg PO DAILY famotidine 20 mg Tablet 20 mg PO HS trazodone 100 mg Tablet 100 mg PO HS metformin 1,000 mg Tablet 1,000 mg PO BID lisinopril 10 mg Tablet 10 mg PO DAILY Rx Instructions: pt takes at noon metoprolol tartrate 50 mg Tablet 50 mg PO Q12H nitroglycerin 0.4 mg Tablet, Sublingual 0.4 mg SUBLINGUAL Q5-15M PRN (Reason: Chest Pain) aspirin 81 mg Tablet,Chewable 81 mg PO DAILY montelukast 10 mg Tablet 10 mg PO DAILY lorazepam 1 mg Tablet 1 mg PO DAILY insulin lispro [Admelog U-100 Insulin lispro] 100 unit/mL Solution 1 sliding scale dose SUBCUT USEASDIRECTD Rx Instructions: pt uses a insulin pump w/this insulin albuterol sulfate 90 mcg/actuation Hfa Aerosol Inhaler 2 puff INHALATION QID PRN (Reason: SOB) fluticasone propionate 50 mcg/actuation [place]ad[place],Suspension 1 spray INTRANASAL DAILY budesonide-formoterol [Symbicort] 80-4.5 mcg/actuation Hfa Aerosol Inhaler 2 puff INHALATION DAILY Claritin-D 24 Hour 10-240 mg tablet extended release 24 hr 1 tablet PO DAILY Qty: 10 0RF ibuprofen 800 mg tablet 800 mg PO TID PRN (Reason: pain) Qty: 30 0RF hydrocodone-acetaminophen 5-325 mg tablet 1 tablet PO Q6H PRN (Reason: pain) Qty: 5 0RF omeprazole 40 mg Capsule,Delayed Release(Dr/Ec) 40 mg PO DAILY Follow-up/Referrals: Efrain Lawler MD [Physician] - 3 Days PHYSICIAN NOT ON STAFF,NONSTAFF [Primary Care Provider] - Time of Disposition: 13:31
[2024-09-16 12:44] VITALS: BP 108/73; PULSE 68; RESP 16; TEMP 36.6; O2SAT 98
== END 2024-09-16 13:38 | disposition home or self-care (01) ==
PROVIDERS: Emergency Provider Nurse Practitioner Family
DX: S40.861A Insect bite (nonvenomous) of right upper arm, initial encounter (principal); W57.XXXA Bitten or stung by nonvenomous insect and other nonvenomous arthropods, initial encounter; Z79.82 Long term (current) use of aspirin; K21.9 Gastro-esophageal reflux disease without esophagitis; E78.5 Hyperlipidemia, unspecified; I25.10 Atherosclerotic heart disease of native coronary artery without angina pectoris; E11.9 Type 2 diabetes mellitus without complications; Z87.891 Personal history of nicotine dependence
CPT/HCPCS: 99213; G0463

== ENCOUNTER 2024-10-08 17:29 | Emergency (ER) | payer OTHER, SELFPAY ==
--- NOTE | ~2024-10-08 | CT_ITS ---
CLINICAL INDICATION: Left lower quadrant pain COMPARISON: 07/12/2024. TECHNIQUE: Multiple contiguous axial images of the abdomen and pelvis were performed following the ad ministration of with 100 mL Omnipaque-350 intravenous contrast The dose-length product (DLP) was 812.97 mGy-cm. Automated exposure control and iterative reconstruction technique were employed. FINDINGS/OBSERVATIONS: Visualized lower thorax: The bilateral lung bases are clear. The heart is of normal size, without pericardial effusion. Small hiatal hernia is present. Liver: The liver enhances homogeneously and is not enlarged measuring 18 cm in longitudinal dimension. Gallbladder and biliary system: The gallbladder is surgically absent. Pancreas: The pancreas enhances homogeneously without ductal dilatation. Spleen: The spleen enhances homogeneously and is not enlarged measuring 8 cm in longitudinal dimension. Kidneys: The bilateral kidneys enhance symmetrically without hydronephrosis or renal calculi. Adrenal glands: Unremarkable. Gastrointestinal tract: Colonic diverticulosis without surrounding inflammatory change. Appendix: The air-filled appendix is of normal caliber (axial series, image 117 through 134). Vasculature: Unremarkable. Lymph nodes: No pathologically enlarged or morphologically suspicious lymph nodes within the retroperitoneum or at the root of the mesentery. Pelvic structures: The bladder is distended with wall thickening, but otherwise unremarkable.. The uterus is either surgically absent or markedly atrophic. Body wall and musculoskeletal: No significant degenerative disease within the lower thoracic or lumbosacral spine. IMPRESSION: Bladder wall thickening with moderate distention. Otherwise, no acute intra-abdominal pathology, as detailed above. Reviewed, dictated and finalized at location A. [facility] REPRESENTATIVE
--- OUTSIDE RECORDS SUMMARY | 2024-10-08 17:33 | XMS_ITS | Clinical Summary ---
Author Organization [facility] Address [address] [place] [address] Care Team Providers Care Cisco Certified Network Professional Name Role Phone Stella Sneed MD Primary Care Provide r Allergies No known active allergies Medications nebivolol (BYSTOLIC) 5 mg tablet take 1 tablet by oral route every day 0 0 7 Active gabapentin (NEURONTIN) 300 mg capsule take 1 capsule by oral route 3 times every day 0 0 7 Active Additional Information Patient taking differently:300 mg,(No PRN reasons reported), Reported on 05/16/2024 metFORMIN XR (GLUCOPHAGE XR) 500 mg 24 hr tablet take 1 tablet by oral route every day with the evening meal 0 0 7 Active isosorbide mononitrate ER (IMDUR) 30 mg 24 hr tablet take 1 tablet by oral route every day in the morning 0 0 7 Active insulin glargine (LANTUS SOLOSTAR) 100 unit/mL (3 mL) insulin pen inject by subcutaneous route as per insulin protocol 0 Syringe 0 7 Active citalopram (CeleXA) 40 mg tablet take 1 tablet by oral route every day 0 0 7 Active Additional Information Patient taking differently:40 mg,(No PRN reasons reported), Reported on 05/16/2024 insulin glargine (LANTUS) 100 unit/mL injection inject by subcutaneous route as per insulin protocol 0 vial 0 7 Active omeprazole (PriLOSEC) 20 mg capsule take 1 capsule by oral route every day before a meal 0 0 7 Active omeprazole (PriLOSEC) 20 mg capsule take 1 capsule by oral route every day 30 minutes to 1 hour before a meal 0 0 7 Active fluticasone (FLONASE) 50 mcg/actuation nasal spray spray 1 - 2 spray by intranasal route every day in each nostril as needed 0 spray 0 7 Active traZODone (DESYREL) 100 mg tablet take 1 tablet by oral route every day after meals 0 0 7 Active QUEtiapine (SEROquel) 100 mg tablet take 1 tablet by oral route every day 0 0 7 Active loratadine (CLARITIN) 10 mg tablet take 1 tablet by oral route every day 0 0 7 Active montelukast (SINGULAIR) 10 mg tablet take 1 tablet by oral route every day in the evening 0 0 7 Active metFORMIN (GLUCOPHAGE) 1,000 mg tablet take 1 tablet by oral route 2 times every day with morning and evening meals 0 0 7 Active cromolyn (OPTICROM) 4 % ophthalmic solution instill 1 drop by ophthalmic route 2 times every day into affected eye(s) 0 0 7 Active atorvastatin (LIPITOR) 20 mg tablet take 1 tablet by oral route every day 0 0 7 Active Additional Information Patient taking differently: 80 mg, Reported on 04/13/2024 citalopram (CeleXA) 40 mg tablet take 1 tablet by oral route every day 0 0 7 Active gabapentin (NEURONTIN) 600 mg tablet take 1 tablet by oral route 2 times every day 0 0 7 Active aspirin 325 mg tablet take 1 tablet by oral route every day 0 0 7 Active isosorbide mononitrate ER (IMDUR) 30 mg 24 hr tablet take 1 tablet by oral route every day in the morning 90 3 7 Active nebivolol (BYSTOLIC) 5 mg tablet take 1 tablet by oral route every day 90 3 7 Active nitroglycerin (NITROSTAT) 0.[address] 1 TABLET UNDER TONGUE AT 1ST SIGN OF ATTACK. MAY REPEAT EVERY 5 MINUTES UP TO 3 TABLETS. IF NO RELIEF, SEEK MEDICAL HELP 25 tablet 7 Active traZODone (DESYREL) 100 mg tablet Take 1 tablet (100 mg total) by mouth 6 Active QUEtiapine (SEROquel) 100 mg tablet Take 2 tablets (200 mg total) by mouth 6 Active omeprazole 20 mg tablet,delayed release (DR/EC) 7 Active nitroglycerin (NITROSTAT) 0.4 mg SL tablet 7 Active montelukast (SINGULAIR) 10 mg tablet Take 1 tablet (10 mg total) by mouth 6 Active loratadine (CLARITIN) 10 mg tablet Take 1 tablet (10 mg total) by mouth 6 Active albuterol HFA (PROVENTIL HFA,VENTOLIN HFA,PROAIR HFA) 90 mcg/actuation inhaler Inhale 2 puffs every 4 (four) hours as needed 2 Active budesonide-form oteroL (SYMBICORT) 160-4.5 mcg/actuation inhaler Inhale 2 puffs 2 (two) times a day 4 03/31/20 25 Active glipiZIDE (GLUCOTROL) 5 mg tablet TAKE 1 TABLET BY MOUTH TWICE A DAY BEFORE BREAKFAST AND SUPPER 4 Active famotidine (PEPCID) 40 mg tablet Take 1 tablet (40 mg total) by mouth daily 4 Active prochlorperazin e (COMPAZINE) 10 mg tablet Take 1 tablet (10 mg total) by mouth every 8 (eight) hours as needed 4 Active TRUEplus Pen Needle 32 gauge x needle USE 1 EACH TO INJECT BY SUBCUTANEOUS ROUTE ONCE DAILY. 4 Active cyclobenzaprine (FLEXERIL) 10 mg tablet Take 1 tablet (10 mg total) by mouth 3 (three) times a day as needed 4 Active dicyclomine (BENTYL) 10 mg capsule TAKE 1 CAPSULE BY MOUTH FOUR TIMES DAILY NEEDED FOR ABDOMINAL FOR PAIN. 4 Active pioglitazone (ACTOS) 15 mg tablet Take 1 tablet (15 mg total) by mouth daily 3 Active empagliflozin (JARDIANCE) 25 mg tablet 1 tablet (25 mg total) daily Active metoprolol (LOPRESSOR) 100 mg tablet Take 1 tablet (100 mg total) by mouth 2 (two) times a day Active lisinopriL (PRINIVIL,ZESTR IL) 20 mg tablet Take 1 tablet (20 mg total) by mouth daily Active aspirin 81 mg enteric coated tablet Take 1 tablet (81 mg total) by mouth daily Active loperamide (IMODIUM) 2 mg capsule Take 1 capsule (2 mg total) by mouth 4 (four) times a day as needed for diarrhea Active ondansetron (ZOFRAN) 4 mg tablet Take 1 tablet (4 mg total) by mouth every 8 (eight) hours as needed for nausea or vomiting Active simethicone (MYLICON) 80 mg chewable tablet Take 1 tablet (80 mg total) by mouth every 6 (six) hours as needed for flatulence Active diphenoxylate-a tropine (LOMOTIL) 2.5-0.025 mg per tabletIndicatio ns:diarrhea Take 1 tablet by mouth 4 (four) times a day as needed for diarrhea Active SUMAtriptan (IMITREX) 25 mg tabletIndicatio ns:Migraine Take 1 tablet (25 mg total) by mouth once as needed for migraine May repeat dose once in 2 hours if no relief. Do not exceed 2 doses in 24 hours. Active Active Problems Problem Noted Date Diagnosed Date Essential hypertension 04/14/2024 Hyperlipidemia 04/14/2024 Cardiomyopathy 12/09/2016 Overview (01/16/2017): Cardiomyopathy, unspecified type Chest pain 12/09/2016 Overview (01/16/2017): Chest pain with high risk for cardiac etiology Type 2 diabetes mellitus 12/09/2016 Overview (01/16/2017): Type 2 diabetes mellitus with other circulatory complication, with long-term current use of insulin Resolved Problems Problem Noted Date Diagnosed Date Resolved Date History of TIA (transient ischemic attack) 05/17/2024 05/17/2024 Family History Medical History Relation Name Comments Other Father 2 Alive and well; Other Mother 2 Alive and well; Relation Name Status Comments Father 1 Alive Father 2 Mother 1 Alive Mother 2 Social History Tobacco Use Types Packs/Day Years Used Date Smoking Tobacco: Never Smokeless Tobacco: Never Alcohol Use Standard Drinks/Week Comments Yes 0 (1 standard drink = 0.6 oz pur e alcohol) Personal Safety Answer Date Recorded Getting School Help Needed Not on file 11/07 Comments Unknown Sex and Gender Information Value Date Recorded Sex Assigned at Not on file Legal Sex Female 3:25 AM RAG BOILER Gender Identity Female 01/22/2023 2:43 AM CDT Sexual Orientation Straight 01/22/2023 2: 43 AM CDT Obstetrics History Last Filed Vital Signs Vital Sign Reading Time Taken Comments Blood Pressure 101/68 05/16/2024 3:49 PM CDT Pulse 66 05/16/2024 3:49 PM CDT Temperature 36.6 C (97.8 F) 05/13/2017 2:29 PM CDT Respiratory Rate - - Oxygen Saturation 96% 05/13/2017 2:29 PM CDT Inhaled Oxygen Concentration - - Weight 98 kg (216 lb) 04/13/2024 2:57 PM CDT Height 167.6 cm (5' 6 ) 04/13/2024 2:57 PM CDT Body Mass Index 34.86 04/13/2024 2:57 PM CDT Plan of Treatment Health Maintenance Due Date Last Done Comments Albumin Creatinine Ratio, Urine 1965 Cervical Cancer Screening 1964 Colon Cancer Screening-Colonoscopy 1964 Depression Screening 1964 Hemoglobin A1C 1964 Hepatitis C Screening 1964 eGFR 1964 Dilated Eye Exam 1964 Foot Exam 1964 Hepatitis B Screening 01/25/1982 Regular Well Visit/Exam 18-64 01/25/1982 Lipid Panel 07/13/2014 07/13/2013 Breast Cancer Screening-Mammogram 02/23/2018 017, 01/02/2015 Zoster Vaccine (2 of 2) 08/27/2022 07/02/2022 Covid-19 Vaccine (2023-2 5 season) 2024 07/02/2022, 01/11/2022, 02/25/2021, Additional history exists Influenza Vaccine (#1) 2024 2, 08/01/2021, 06/06/2020, Additional history exists DTaP/Tdap/Td Vaccine (2 - Td or Tdap) 07/03/2031 07/03/2021 Pneumococcal vaccine <65 Completed 03/31/2024 Procedures Procedure Name Priority Date/Time Associated Diagnosis Comments DIAGNOSTIC MAMMOGRAM BILATERAL W XAVI Routine 02/23/2017 10:42 AM CDT TNI WITH LIPID PANEL Routine 07/13/2013 7:18 PM RAG BOILER from Last 3 Months or Most Recently Relevant to Health Maintenance Results * Diagnostic Mammogram Bilateral W Xavi (02/23/2017 10:42 AM CDT) Anatomical Region Laterality Modality Breast Bilateral Mammography 02/23/2017 10:4 2 AM CDT Impressions 02/23/2017 11:42 AM CDT BI-RAD 4A SUSPICIOUS FOR MALIGNANCY 1. Low suspicion left breast 3.5 cm palpable mass at 10 o'clock. This is favored to represent either a hamartoma or lipoma. Given the reported size increase of this mass as well as the patient's pain at this location, ultrasound guided needle biopsy is recommended. 2. No suspicious left axillary lymphadenopathy is evident by mammogram or ultrasound. 3. No mammographic evidence of malignancy involving the right breast. Recommend routine annual screening mammography on the right. These results and recommendations were discussed with the patient. The ordering clinician will be contacted, and the patient will be notified of the date of her scheduled appointment/procedure. Manolo Robbins M.D., md/:02/23/2017 11:41:54 Holistic Nutritionist: Aileen TIRADO(R)(M), [facility] letter sent: Abnormal Exam Reading location: BI-RADS: 4a Suspicious abnormality - low suspicion for malignancy [EOD] Narrative 02/23/2017 11:42 AM CDT - MG BILATERAL DIGITAL DIAGNOSTIC MAMMOGRAM 3D/2D WITH MEDIOLATERAL OBLIQUE CRANIOCAUDAL: 02/23/2017 The study was acquired using full field digital technology and interpreted from soft copy. 2D digital mammographic views, as well as 3D digital tomosynthesis were performed in the CC and MLO projections. CLINICAL: 52-year-old female presents for evaluation of an enlarging, painful palpable lump within the upper inner left breast. Annual right screening mammogram. COMPARISONS: Comparison is made to exams dated: 01/02/2015 mammogram, 02/03/2013 mammogram/ultrasound [facility]. BREAST TISSUE: The tissue of both breasts is heterogeneously dense, which may obscure small masses. MAMMOGRAPHIC FINDINGS: A BB marker has been placed on the upper inner left breast, denoting the patient's palpable area of concern. Only bland, normal appearing breast tissue is seen underlying the BB marker. No suspicious mass, calcifications, or other significant mammographic findings are identified within either breast. There has been no suspicious interval mammographic change involving either breast. ULTRASOUND FINDINGS: Targeted sonographic evaluation of the left breast palpable area of concern at 10 o'clock, 9 cm from the nipple demonstrates an oval circumscribed, gently lobulated isoechoic mass measuring 3.5 x 2.1 x 3.3 cm. This mass demonstrates no discernible posterior acoustic shadowing or Doppler blood flow. Sonographic evaluation of the left axilla demonstrates no suspicious appearing lymphadenopathy. Procedure Note Provider, MD Sloane - 01/08/2021 - MG BILATERAL DIGITAL DIAGNOSTIC MAMMOGRAM 3D/2D WITH MEDIOLATERAL OBLIQUE CRANIOCAUDAL: 02/23/2017 The study was acquired using full field digital technology and interpretedfrom soft copy. 2D digital mammographic views, as well as 3D digital tomosynthesis were performed in the CC and MLO projections. CLINICAL: 52-year-old female presents for evaluation of an enlarging,painful palpable lump within the upper inner left breast. Annual right screening mammogram. COMPARISONS: Comparison is made to exams dated: 01/02/2015 mammogram,02/03/2013 mammogram/[facility]. BREAST TISSUE: The tissue of both breasts is heterogeneously dense, whichmay obscure small masses. MAMMOGRAPHIC FINDINGS: A BB marker has been placed on the upper innerleft breast, denoting the patient's palpable area of concern. Only bland,normal appearing breast tissue is seen underlying the BB marker. No suspicious mass, calcifications, or other significant mammographicfindings are identified within either breast. There has been no suspiciousinterval mammographic change involving either breast. ULTRASOUND FINDINGS: Targeted sonographic evaluation of the left breast palpable area of concern at 10 o'clock, 9 cm from the nipple demonstratesan oval circumscribed, gently lobulated isoechoic mass measuring 3.5 x 2.1 x3.3 cm. This mass demonstrates no discernible posterior acoustic shadowing or Doppler blood flow. Sonographic evaluation of the left axilla demonstrates no suspiciousappearing lymphadenopathy. IMPRESSION: BI-RAD 4A SUSPICIOUS FOR MALIGNANCY 1. Low suspicion left breast 3.5 cm palpable mass at 10 o'clock. This is favored to represent either a hamartoma or lipoma. Given the reportedsize increase of this mass as well as the patient's pain at this location, ultrasound guided needle biopsy is recommended. 2. No suspicious left axillary lymphadenopathy is evident by mammogram or ultrasound. 3. No mammographic evidence of malignancy involving the right breast. Recommend routine annual screening mammography on the right. These results and recommendations were discussed with the patient. The ordering clinician will be contacted, and the patient will be notified ofthe date of her scheduled appointment/procedure. Manolo Robbins M.D., md/:02/23/2017 11:41:54 Holistic Nutritionist: Aileen Durbin RT(R)(M), [facility] letter sent: Abnormal Exam Reading location: BI-RADS: 4a Suspicious abnormality - low suspicion for malignancy [EOD] us Stella Sneed MD IMG MAMMO PROCEDURES Final Result * TNI with LIPID PANEL (07/13/2013 7:18 PM RAG BOILER) Troponin I < 0.300 0.000 - 0.300 ng/mL Comment: Reference using CHANO Chemiluminescence Negative: Repeat in 4-6 hours as indicated. Triglycerides 142 0 - 199 mg/dL Comment:12 hr pc highly sayra mmended for Triglyceride Cholesterol 170 0 - 199 mg/dL Comment: Borderline: 200-239 High Risk: >239 HDL Cholesterol 40 40 - 60 mg/dL 07/13/2013 7:49 PM RAG BOILER [facility] [employer] HISTORICAL RESULTS Comment: Major Risk < 40 mg/dL Moderate Risk 40-60 mg/dL Negative Risk > 60 mg/dL LDL Cholesterol, Calc 102 0 - 130 mg/dL 07/13/2013 7:49 PM [facility] Comment:High Risk > 159 mg/d L 07/13/2013 7:18 PM RAG BOILER 07/13/2013 7:25 PM RAG BOILER Diana Olmedo PA LAB BLOOD ORDERABLES Final Re sult [facility] [employer] HISTORICAL RESULTS from Last 3 Months or Most Recently Relevant to Health Maintenance Insurance [facility] Care Teams Cisco Certified Network Professional Relationship Specialty Start Date End Date Stella Sneed MD [address] [place] [id number] PCP - General Family Medicine 03/04/22
--- OUTSIDE RECORDS SUMMARY | 2024-10-08 17:33 | XMS_ITS | Encounter Summary ---
Author Organization [facility] Address [address] [facility] [place] [address] Care Team Providers Care Network Services Project Manager Name Role Phone Luiza Fernandez MD Unavailable Stella Sneed MD Primary Care Provider [phone] Reason for Visit * Reason Onset Date Comments MEDICATION REFILL 07/14/2023 Encounter Details Date Type Department Care Team (Late st Contact Info) Description 07/14/2023 Refill [facility] - Endocrinology [address] [facility] [place] [phone] Maggie Lester MD [address] [facility] [place] [address] MEDICATION REFILL Social History Tobacco Use Types Packs/Day Years Used Date Smoking Tobacco: Former Cigarettes 1.5 45.3 1 978 - 12/22/2022 Smokeless Tobacco: Never Comments:1-2 ppd -- patient restarted smoking and just quit again in december 2022 Alcohol Use Standard Drinks/Week Comments Yes 1 (1 standard drink = 0.6 oz pur e alcohol) Yearly 1-2x AUDIT-C Answer Date Recorded Frequency of Alcohol Consumption Not on file 06/06/2020 Average Number of Drinks Not on file 020 Q3: How often do you have si x or more drinks on one occasion? Less than monthly 06/06/2020 PHQ-2 Answer Date Recorded PHQ2 TOTAL SCORE 0 03/25/2022 Education Answer Date Recorded What is the highest level of school you have completed or the highest degree you have received? Associate degree: academic program 05/08/2021 Sex and Gender Information Value Date Recorded Sex Assigned at Female 09/05/2021 1:34 PM CIVIL CAD DESIGNER Gender Identity Female 09/05/2021 1:34 PM CIVIL CAD DESIGNER Sexual Orientation Straight 09/05/2021 1: 34 PM CIVIL CAD DESIGNER documented as of this encounter Functional Status Functional Status Response Date of Assess ment Is person deaf or have serious hearing difficult y? No 03/18/2023 Is person blind or have serious difficulty seein g? No 03/18/2023 Does person have serious dif ficulty walking/climbing stairs? No 03/18/2023 Does person have difficulty dressing/bathing? No 03/18/2023 Does person have difficulty doing errands alone? No 03/18/2023 Cognitive Status Response Date of Assessm ent Does person have difficulty concentrating/remembering/making decisions? No 03/18/2023 documented as of this encounter Plan of Treatment Upcoming Encounters Date Type Department Care Team (Late st Contact Info) Description 11/03/2024 4:00 PM CDT Office Visit [facility] - Pulmonology [address] [place] [phone] Luis Peter MD [facility] PULMONARY DISEASE/[place] [address] 12/21/2024 2:20 PM CDT Office Visit [facility] - Endocrinology [address] [place] [phone] Joceline Reed MD [address] [place] [address] 12/29/2024 8:30 AM CDT Office Visit [facility] - GI [address] [place] [phone] 01/17/2025 1:00 PM CDT Office Visit [facility] - Neurology [address] [place] [address] [place] [address] Yael Brock MD [address] [facility] 1L [place] [phone] 2025 8:40 AM CDT Office Visit [facility] - Sleep Services [address] [place] [phone] Breanna Layton, TICO-MEAT GRADER [address] [facility] 2L DIV OF PULMONARY/[place] [address] documented as of this encounter Goals Goal Patient Goal Type Associated Problems Recent Progress Patient-Stated? Author Medication Management General On track( 2:44 PM CIVIL CAD DESIGNER) Tammy Sanchez, RN Note: Expected end date: ongoing Interventions: Take all medications as prescribed Let your doctor know right away about any changes in your medications Make sure to request a refill of your medication at least one week prior to your last dose Safety General On track( 2:44 PM CIVIL CAD DESIGNER) No Kylah Rae, RN Note: Expected end date: ongoing Interventions: Your nurse will assess your risk for falls/injury each visit Use appropriate and safe transfer methods Keep personal items within easy reach Use some light at night in your room Keep walking paths clutter free and clear documented as of this encounter Visit Diagnoses Diagnosis Diabetic polyneuropathy associated with type 2 diabetes mellitus (HCC) documented in this encounter Care Teams Network Services Project Manager Relationship Specialty Start Date End Date Stella Sneed MD [address] [place] [phone] PCP - General Family Medicine 04/01/23 Luiza Fernandez MD [address] [place] [address] Physician Endocrinology 03/12/23 documented as of this encounter
--- OUTSIDE RECORDS SUMMARY | 2024-10-08 17:33 | XMS_ITS | Encounter Summary ---
Author Organization [facility] Health Address [address] [facility] [place] [address] Care Team Providers Care Electrical Drafter Name Role Phone Luiza Fernandez MD Unavailable Stella Sneed MD Primary Care Provider Reason for Visit * Reason Onset Date Comments MEDICATION REFILL 07/14/2023 Encounter Details Date Type Department Care Team (Late st Contact Info) Description 07/14/2023 Refill [facility] - Endocrinology [address] [place] [address], [place] [phone] Buck Louise MD [address] [place] [address] [place] [address] MEDICATION REFILL Social History Tobacco Use Types [...] Sex Assigned at Female 09/05/2021 1:34 PM FINISH PHOTOGRAPHER Gender Identity Female 09/05/2021 1:34 PM FINISH PHOTOGRAPHER Sexual Orientation Straight 09/05/2021 1: 34 PM FINISH PHOTOGRAPHER documented as of this encounter Functional Status [...] No 03/18/2023 documented as of this encounter Miscellaneous Notes * Telephone Encounter - Brittney Martines MA - 07/15/2023 9:11 AM CST Refill Request metformin SEBLE: 07/07/23 NOV scheduled: 07/14/2023 LRF: 03/25/22 Qty Disp: 180 # of refills: 3 Allergies: Allergies Allergen Reactions ??? Definity [Perflutren Lipid Microsphere] Other Patient experienced lower back pain for 3 min. Pain resolved. Pended Medication Order: Requested Prescriptions Pending Prescriptions Disp Refills ??? metFORMIN (Glucophage) 1000 MG tablet 180 tablet 3 Sig: Take 1 (one) tablet by mouth 2 times daily with morning and evening meal ??? pioglitazone (Actos) 15 MG tablet 90 tablet 4 Sig: Take 1 (one) tablet by mouth once daily Refill Request actos LRF: 03/25/22 Qty Disp: 90 # of refills: 4 Allergies: Allergies Allergen Reactions ??? Definity [Perflutren Lipid Microsphere] Other Patient experienced lower back pain for 3 min. Pain resolved. Pended Medication Order: Requested Prescriptions Pending Prescriptions Disp Refills ??? metFORMIN (Glucophage) 1000 MG tablet 180 tablet 3 Sig: Take 1 (one) tablet by mouth 2 times daily with morning and evening meal ??? pioglitazone (Actos) 15 MG tablet 90 tablet 4 Sig: Take 1 (one) tablet by mouth once daily SH PHOTOGRAPHER documented in this encounter Plan of Treatment Upcoming Encounters Date Type Department Care Team (Late st Contact Info) Description 11/03/2024 4:00 PM CDT Office Visit [facility] - Pulmonology [address] [place] [address] Luis Peter MD [address] [place] [address] PULMONARY DISEASE/[place] [phone] 12/21/2024 2:20 PM CDT Office Visit [facility] - Endocrinology [address] [place] [phone] Joceline Reed MD [facility] [place] [address] 12/29/2024 8:30 AM CDT Office Visit [facility] - GI [address] [place] [address] [place] [phone] 01/17/2025 1:00 PM CDT [facility] [address] [place] [address] [place] [phone] Yael Brock MD [address] [place] [address] 1L [place] [phone] 2025 8:40 AM CDT Office Visit [facility] - Sleep Services [facility]5 [place] [phone] Breanna Layton, APNP-PHARMACEUTICAL COMPOUNDING SUPERVISOR [address] [place] [address] 2L DIV OF PULMONARY/[place] [address] documented as of this encounter Goals Goal Patient Goal Type Associated Problems Recent Progress Patient-Stated? Author Medication Management General On track( 2:44 PM FINISH PHOTOGRAPHER) Tammy Sanchez RN Note: Expected end date: ongoing Interventions: Take all medications as prescribed Let your doctor know right away about any changes in your medications Make sure to request a refill of your medication at least one week prior to your last dose Safety General On track( 2:44 PM FINISH PHOTOGRAPHER) Kylah Genao RN Note: Expected end date: ongoing Interventions: Your nurse will assess your risk for falls/injury each visit Use appropriate and safe transfer methods Keep personal items within easy reach Use some light at night in your room Keep walking paths clutter free and clear documented as of this encounter Visit Diagnoses Diagnosis Diabetic polyneuropathy associated with type 2 diabetes mellitus (HCC) Type 2 diabetes mellitus with hyperglycemia, with long-term current use of insulin (HCC) documented in this encounter Care Teams Electrical Drafter Relationship Specialty Start Date End Date Stella Sneed MD [address] [place] [address] PCP - General Family Medicine 04/01/23 Luiza Fernandez MD [address] [place] [address] Physician Endocrinology 03/12/23 documented as of this encounter
--- OUTSIDE RECORDS SUMMARY | 2024-10-08 17:33 | XMS_ITS | Encounter Summary ---
Author Organization [facility] Health Address [address] [facility] [place] [address] Care Team Providers Care Welding Machine Assembler Name Role Phone Luiza Fernandez MD Unavailable Stella Sneed MD Primary Care Provider [phone] Reason for Visit * Reason Onset Date Comments MEDICATION REFILL 06/19/2023 Encounter Details Date Type Department Care Team (Late st Contact Info) Description 06/19/2023 Refill [facility] - Endocrinology [address] [place] [address], [place] [phone] Buck Louise MD [address] [place] [address] [place] [address] MEDICATION REFILL Social History Tobacco Use Types [...] Sex Assigned at Female 09/05/2021 1:34 PM MILLED RICE BROKER Gender Identity Female 09/05/2021 1:34 PM MILLED RICE BROKER Sexual Orientation Straight 09/05/2021 1: 34 PM MILLED RICE BROKER documented as of this encounter Functional Status [...] Telephone Encounter - Brittney Martines MA - 06/22/2023 10:10 AM CDT Refill Request Sylvia Waldrop SEBLE: 06/09/23 NOV scheduled: Visit date not found LRF: 03/12/23 Qty Disp: 90 # of refills: 1 Allergies: Allergies Allergen Reactions ??? Definity [Perflutren Lipid Microsphere] Other Patient experienced lower back pain for 3 min. Pain resolved. Pended Medication Order: Requested Prescriptions Pending Prescriptions Disp Refills ??? gabapentin (Neurontin) 600 MG tablet 90 tablet 1 documented in this encounter Plan of Treatment Upcoming Encounters Date Type Department Care Team (Late st Contact Info) Description 11/03/2024 4:00 PM CDT Office Visit [facility] - Pulmonology [address] [facility], [place] [phone] Luis Peter MD [address] [facility] PULMONARY DISEASE/[place] [address] 12/21/2024 2:20 PM CDT Office Visit [facility] - Endocrinology [address] [place] [address], [place] [address] Joceline Reed MD [address] [place] [address] 12/29/2024 8:30 AM CDT Office Visit [facility] - GI [address] [place] [address], [place] [address] 01/17/2025 1:00 PM CDT Office Visit [facility] - Neurology [address] [place] [address], [place] [phone] Yael Brock MD [address] [place] [address] 1L [place] [phone] 2025 8:40 AM CDT Office Visit [facility] - Sleep Services [address] [place] [phone] Breanna Layton, TICO-SPOUT TENDER [address] [place] [address] 2L DIV OF PULMONARY/[place] [address] documented as of this encounter Goals Goal Patient Goal Type Associated Problems Recent Progress Patient-Stated? Author Medication Management General On track( 2:44 PM MILLED RICE BROKER) Tammy Sanchez, RN Note: Expected end date: ongoing Interventions: Take all medications as prescribed Let your doctor know right away about any changes in your medications Make sure to request a refill of your medication at least one week prior to your last dose Safety General On track( 2:44 PM MILLED RICE BROKER) Kylah Genao RN Note: Expected end date: ongoing Interventions: Your nurse will assess your risk for falls/injury each visit Use appropriate and safe transfer methods Keep personal items within easy reach Use some light at night in your room Keep walking paths clutter free and clear documented as of this encounter Visit Diagnoses Diagnosis Polyneuropathy Unspecified hereditary and idiopathic peripheral neuropathy documented in this encounter Care Teams Welding Machine Assembler Relationship Specialty Start Date End Date Stella Sneed MD [address] [place] [address] PCP - General Family Medicine 04/01/23 Luiza Fernandez MD [address] [place] [address] Physician Endocrinology 03/12/23 documented as of this encounter
--- OUTSIDE RECORDS SUMMARY | 2024-10-08 17:33 | XMS_ITS | Encounter Summary ---
Author Organization [facility] Health Address [address] [facility] [place] [address] Care Team Providers Care Serging Machine Operator Name Role Phone Dea Norman MD Primary Care Provider [phone] Luiza Fernandez MD Unavailable Stella Sneed MD Primary Care Provider [phone] Reason for Visit * Reason Onset Date Comments MEDICATION REFILL 01/09/2022 Encounter Details Date Type Department Care Team (Late st Contact Info) Description 01/09/2022 Refill [facility] [address] [facility], [facility] [place] [phone] Angel Sotomayor MD [address] [facility] [address] MEDICATION REFILL Social History Tobacco Use Types Packs/Day Years Used Date Smoking Tobacco: Former Cigarettes 1.5 40 1 978 - 08/12/2017 Smokeless Tobacco: Never Comments:1-2 ppd Alcohol Use Standard Drinks/Week Comments Yes 1 (1 standard drink = 0.6 oz pur e alcohol) Yearly 1-2x AUDIT-C Answer Date Recorded Frequency of Alcohol Consumption Not on file 06/06/2020 Average Number of Drinks Not on file 020 Q3: How often do you have si x or more drinks on one occasion? Less than monthly 06/06/2020 PHQ-2 Answer Date Recorded PHQ2 TOTAL SCORE 3 02/20/2021 Education Answer Date Recorded What is the highest level of school you have completed or the highest degree you have received? Associate degree: academic program 05/08/2021 Sex and Gender Information Value Date Recorded Sex Assigned at Female 09/05/2021 1:34 PM WET FINISHER WOOL Gender Identity Female 09/05/2021 1:34 PM WET FINISHER WOOL Sexual Orientation Straight 09/05/2021 1: 34 PM WET FINISHER WOOL documented as of this encounter Miscellaneous Notes * Telephone Encounter - Farzaneh Colon - 01/09/2022 4:02 PM CDT Refill Request Sylvia Waldrop SEBLE: 11/12/2021Jun due: 6weeks NOV scheduled: Visit date not found LRF: 11/12/2021 Qty Disp: 10 # of refills: 5 Allergies: Allergies Allergen Reactions ??? Definity [Perflutren Lipid Microsphere] Other Patient experienced lower back pain for 3 min. Pain resolved. Pended Medication Order: Requested Prescriptions Pending Prescriptions Disp Refills ??? Insulin Lispro (ADMELOG) 100 UNIT/ML SOLN 10 mL 5 Sig: For use in insulin pump, max/average daily dose 90 units documented in this encounter Plan of Treatment Upcoming Encounters Date Type Department Care Team (Late st Contact Info) Description 11/03/2024 4:00 PM CDT Office Visit [facility] - Pulmonology [address] [place] [phone] Luis Peter MD [address] [place] [place] [address] PULMONARY DISEASE/[place] [address] 12/21/2024 2:20 PM CDT Office Visit [facility] - Endocrinology [address] [place] [phone] Joceline Reed MD [address] [place] [address] 12/29/2024 8:30 AM CDT Office Visit [facility] - GI [address] [facility], [place] [address] 01/17/2025 1:00 PM CDT Office Visit [facility] - Neurology [address] [place] [address], [place] [phone] Yael Brock MD [address] [place] [address] 1L [place] [phone] 2025 8:40 AM CDT Office Visit [facility] - Sleep Services [address] [place] [phone] Breanna Layotn, TICO-FIBERGLASSER [address] [place] [address] 2L DIV OF PULMONARY/[place] [address] documented as of this encounter Goals Goal Patient Goal Type Associated Problems Recent Progress Patient-Stated? Author Medication Management General On track( 2:44 PM WET FINISHER WOOL) No Tammy Santos, LOUISA Note: Expected end date: ongoing Interventions: Take all medications as prescribed Let your doctor know right away about any changes in your medications Make sure to request a refill of your medication at least one week prior to your last dose Safety General On track( 2:44 PM WET FINISHER WOOL) Kylah Genao, RN Note: Expected end date: ongoing Interventions: Your nurse will assess your risk for falls/injury each visit Use appropriate and safe transfer methods Keep personal items within easy reach Use some light at night in your room Keep walking paths clutter free and clear documented as of this encounter Visit Diagnoses Diagnosis Type 2 diabetes mellitus with other specified complication, with long-term current use of insulin (HCC)- Primary Type 2 diabetes mellitus with hyperglycemia, with long-term current use of insulin (HCC) documented in this encounter Care Teams Serging Machine Operator Relationship Specialty Start Date End Date Dea Norman MD [address] OF [facility] [place] [address] PCP - General 04/11/21 03/11/23 Stella Sneed MD [address] [place] [phone] PCP - General Family Medicine 04/01/23 Luiza Fernandez MD [address] [place] [address] Physician Endocrinology 03/12/23 documented as of this encounter
--- OUTSIDE RECORDS SUMMARY | 2024-10-08 17:33 | XMS_ITS | Referral Summary ---
Author Organization [facility] Address [address] [place] [address] Care Team Providers Care Beam Sealer Name Role Phone Stella Sneed MD Primary [...] of TIA (transient ischemic attack) 05/17/2024 05/17/2024 Social History Tobacco Use Types Packs/Day Years [...] on file Legal Sex Female 3:25 AM ENVIRONMENTAL INSPECTOR Gender Identity Female 01/22/2023 2:43 AM CDT Sexual Orientation Straight 01/22/2023 2: 43 AM CDT Last Filed Vital Signs Vital Sign Reading [...] 04/13/2024 2:57 PM CDT Plan of Treatment Not on file Procedures Procedure Name Priority Date/Time Associated Diagnosis Comments DIAGNOSTIC MAMMOGRAM BILATERAL W XAVI Routine 02/23/2017 10:42 AM CDT TNI WITH LIPID PANEL Routine 07/13/2013 7:18 PM ENVIRONMENTAL INSPECTOR from Last 3 Months or Most Recently [...] scheduled appointment/procedure. Manolo Robbins M.D., md/:02/23/2017 11:41:54 Weaver Dobby Loom: Aileen TIRADO(Peace)(Josy), [facility] letter sent: Abnormal Exam Reading location: BI-RADS: [...] to exams dated: 01/02/2015 mammogram, 02/03/2013 mammogram/ultrasound - [facility]. BREAST TISSUE: The tissue of both [...] is made to exams dated: 01/02/2015 mammogram,02/03/2013 mammogram/ultrasound - [facility]. BREAST TISSUE: The tissue of both [...] scheduled appointment/procedure. Manolo Robbins M.D., md/:02/23/2017 11:41:54 Weaver Dobby Loom: Aileen ARELLANO)(Josy), [facility] letter sent: Abnormal Exam Reading location: BI-RADS: 4a Suspicious abnormality - low suspicion for malignancy [EOD] us Stella Sneed MD IMG MAMMO PROCEDURES Final Result * TNI with LIPID PANEL (07/13/2013 7:18 PM ENVIRONMENTAL INSPECTOR) Troponin I < 0.300 0.000 - 0.300 ng/mL 07/13/2013 7:[address] [facility] [employer] HISTORICAL RESULTS Comment: Reference using CHANO Chemiluminescence Negative: Repeat in 4-6 hours as indicated. Triglycerides 142 0 - 199 mg/dL 07/13/2013 7:49 PM ENVIRONMENTAL INSPECTOR [facility] [employer] HISTORICAL RESULTS Comment:12 hr pc highly sayra mmended for Triglyceride Cholesterol 170 0 - 199 mg/dL 07/13/2013 7:49 PM ENVIRONMENTAL INSPECTOR [facility] [employer] HISTORICAL RESULTS Comment: Borderline: 200-239 High Risk: >239 HDL Cholesterol 40 40 - 60 mg/dL 07/13/2013 7:[address] [facility] [employer] HISTORICAL RESULTS Comment: Major Risk < 40 mg/dL Moderate Risk 40-60 mg/dL Negative Risk > 60 mg/dL LDL Cholesterol, Calc 102 0 - 130 mg/dL 07/13/2013 7:49 PM ENVIRONMENTAL INSPECTOR [facility] [employer] HISTORICAL RESULTS Comment:High Risk > 159 mg/d L 07/13/2013 7:18 PM ENVIRONMENTAL INSPECTOR 07/13/2013 7:25 PM ENVIRONMENTAL INSPECTOR us Diana MISHRA LAB BLOOD ORDERABLES Final Re sult [facility] [employer] HISTORICAL RESULTS from Last 3 Months or Most Recently Relevant to Health Maintenance Insurance [facility] [address] [place] [address] [facility] [place] [address] Care Teams Beam Sealer Relationship Specialty Start Date End Date Stella Sneed MD [address] [place] [address] PCP - General Family Medicine 03/04/22
--- OUTSIDE RECORDS SUMMARY | 2024-10-08 17:33 | XMS_ITS | Encounter Summary ---
Author Organization [facility] Health Address [address] [place] [address] Care Team Providers Care Telegraph Installer Name Role Phone Dea Norman MD Primary Care Provider Luiza Fernandez MD Unavailable Stella Sneed MD Primary Care Provider [phone] Reason for Visit * Reason Onset Date Comments Methacholine Challenge 07/24/2021 spoke to patient about med holds for MCT- patient confirmed appt on 08/01/21 Encounter Details Date Type Department Care Team (Late st Contact Info) Description 07/24/2021 Telephone [facility] [address] [place] [address] Mckenna Paul, GISELE Methacholine Challenge (spoke to patient about med holds for MCT- patient confirmed appt on 08/01/21) Social History Tobacco Use Types Packs/Day Years [...] Sex Assigned at Female 09/05/2021 1:34 PM INTERNATIONAL STUDENT ADVISOR Gender Identity Female 09/05/2021 1:34 PM INTERNATIONAL STUDENT ADVISOR Sexual Orientation Straight 09/05/2021 1: 34 PM INTERNATIONAL STUDENT ADVISOR documented as of this encounter Plan of Treatment Upcoming Encounters Date Type Department Care Team (Late st Contact Info) Description 11/03/2024 4:00 PM CDT Office Visit [facility] - Pulmonology [address] [place] [phone] Luis Peter MD [address] [place] [address] PULMONARY DISEASE/[place] [address] 12/21/2024 2:20 PM CDT Office Visit [facility] - Endocrinology [address] [place] [address], [place] [address] Joceline Reed MD [address] [place] [address] 12/29/2024 8:30 AM CDT Office Visit [facility] - GI [address] [place] [address] [place] [address] 01/17/2025 1:00 PM CDT Office Visit [facility] - Neurology [address] [place] [address], [place] [address] Yael Brock MD [address] [place] [address] [place] [address] 2025 8:40 AM CDT Office Visit [facility] - Sleep Services [facility] [place] [address] Breanna Layton, APNP-CLAY PUDDLER [address] [facility] 2L DIV OF PULMONARY/[place] [address] documented as of this encounter Goals Goal Patient Goal Type Associated Problems Recent Progress Patient-Stated? Author Medication Management General On track( 024 2:44 PM INTERNATIONAL STUDENT ADVISOR) Tammy Sanchez, RN Note: Expected end date: ongoing Interventions: Take all medications as prescribed Let your doctor know right away about any changes in your medications Make sure to request a refill of your medication at least one week prior to your last dose documented as of this encounter Visit Diagnoses Not on filedocumented in this encounter Care Teams Telegraph Installer Relationship Specialty Start Date End Date Dea Norman MD [address] [facility] 2L DIV OF [place] [address] PCP - General 04/11/21 03/11/23 Stella Sneed MD [address] [place] [address] PCP - General Family Medicine 04/01/23 Luiza Fernandez MD [address] [place] [address] Physician Endocrinology 03/12/23 documented as of this encounter
--- OUTSIDE RECORDS SUMMARY | 2024-10-08 17:33 | XMS_ITS | Encounter Summary ---
Author Organization [facility] Health Address [address] [place] [address] Care Team Providers Care Founder Name Role Phone Luiza Fernandez MD Unavailable Stella Sneed MD Primary Care Provider [phone] Encounter Details Date Type Department Care Team (Late st Contact Info) Description 01/22/2024 Telephone [facility] - Pulmonology [address] [facility], [facility] [place] [address] Raffaele Red MD [address] [facility] [address] [place], [place] [address] Social History Tobacco Use Types Packs/Day Years [...] Sex Assigned at Female 09/05/2021 1:34 PM FINE GRADE OPERATOR Gender Identity Female 09/05/2021 1:34 PM FINE GRADE OPERATOR Sexual Orientation Straight 09/05/2021 1: 34 PM FINE GRADE OPERATOR documented as of this encounter Functional Status [...] encounter Miscellaneous Notes * Telephone Encounter - Pau Crenshaw - 01/22/2024 12:31 PM CDT Patient called in requesting a Med refill. Drug type: PROAIR Symbicort 80/4.5 MCG Inhaler PROAIR HFA Rescue Inhaler Patient's last appt was a VIDEO appt 10/10/21 w/ Dr. Raffaele Red. I believe he may have been a fellow since I don't see him listed. She says the script has and she needs refills. She will call for appt when she gets her new card w [employer]. I had to search a bit to find appt./info for this pt. Pharmacy: Mail Order [facility] [address] [place] [address], [facility] [id number] Patient call back number: [phone] . Patients SEBLE : 10/10/21 w Raffaele Red Upcoming appointment scheduled for : None - lost insurance - just g documented in this encounter Plan of Treatment Upcoming Encounters Date Type Department Care Team (Late st Contact Info) Description 11/03/2024 4:00 PM CDT Office Visit [facility] - Pulmonology [address] [place] [address], [place] [phone] Luis Peter MD [address] [facility] PULMONARY DISEASE/[place] [phone] 12/21/2024 2:20 PM CDT Office Visit [facility] - Endocrinology [address] [place] [address], [place] [phone] Joceline Reed MD [address] [place] [address] 12/29/2024 8:30 AM CDT [facility] - GI [address] [place] [address], [place] [phone] 01/17/2025 1:00 PM CDT Office [facility] - Neurology [address] [place] [address], [place] [phone] Yael Brock MD [address] [place] [address] [address] [place] [phone] 2025 8:40 AM CDT Office Visit [facility] - Sleep Services [facility] [place] [phone] Breanna Layton, APNP-COMPUTER GAME TESTER [address] [place] [address] [address] DIV OF PULMONARY/[place] [address] documented as of this encounter Goals Goal Patient Goal Type Associated Problems Recent Progress Patient-Stated? Author Medication Management General On track( 024 2:44 PM FINE GRADE OPERATOR) Tammy Sanchez, RN Note: Expected end date: ongoing Interventions: Take all medications as prescribed Let your doctor know right away about any changes in your medications Make sure to request a refill of your medication at least one week prior to your last dose Safety General On track( 024 2:44 PM FINE GRADE OPERATOR) Kylah Genao, RN Note: Expected end date: ongoing Interventions: Your nurse will assess your risk for falls/injury each visit Use appropriate and safe transfer methods Keep personal items within easy reach Use some light at night in your room Keep walking paths clutter free and clear documented as of this encounter Visit Diagnoses Not on filedocumented in this encounter Care Teams Founder Relationship Specialty Start Date End Date Stella Sneed MD [address] [place] [phone] PCP - General Family Medicine 04/01/23 Luiza Fernandez MD [address] [place] [address] Physician Endocrinology 03/12/23 documented as of this encounter
--- OUTSIDE RECORDS SUMMARY | 2024-10-08 17:34 | XMS_ITS | Clinical Summary ---
Author Organization [facility] Address [address] [place] [phone] Care Team Providers Care Lathe Setup Operator Name Role Phone Unavailable Primary Care Provider Unavailabl e Social History Tobacco Use Types Packs/Day Years Used Date Smoking Tobacco: Never Assessed Comments Unknown Sex and Gender Information Value Date Recorded Sex Assigned at Not on file Legal Sex Female 12:57 PM CDT Gender Identity Not on file Sexual Orientation Not on file Plan of Treatment Health Maintenance Due Date Last Done Comments Hepatitis C Virus (HCV) Screening 1965 TdaP Immunization 1965 Pap Smear 01/25/1985 Cervical Cancer Screening (CCS) 01/25/1994 HPV/Cotest 01/25/1994 Colonoscopy 01/25/2009 Colorectal Cancer Screening 01/25/2009 Cologuard 01/25/2014 Immunochemical Fecal Occult Blood 01/25/2014 Mammogram 01/25/2014 Pneumococcal Immunization (5 0+ years) (1 of 1 - PCV) 01/25/2014 Zoster Immunization (1 of 2) 01/25/2014 Influenza Immunization (#1) 2024 SARS-COV-2 Immunization ( season) 2024 Respiratory Syncytial Virus (RSV) Immunization (Adult) (1 - 1-dose 75+ series) 01/25/2039 Hepatitis B Immunization Aged Out No longer eligible based on patient's age to complete this topic Meningococcal Immunization (ACWY) Aged Out No longer eligible based on patient's age to complete this topic Pneumococcal Immunization Combined Aged Out No longer eligible based on patient's age to complete this topic Rotavirus Immunization Aged Out No lo nger eligible based on patient's age to complete this topic Insurance [employer] on file
--- OUTSIDE RECORDS SUMMARY | 2024-10-08 17:34 | XMS_ITS | Clinical Summary ---
Author Organization [facility] Address [address] [facility] [place] [address] Care Team Providers Care Vice President Of Talent Acquisition Name Role Phone Luiza Fernandez MD Unavailable Stella Sneed MD Primary Care Provider [phone] Source Comments [facility],non-owned Affiliates and Associated Physician Practices is amultiple site organization consisting of ambulatory clinics and hospital sitesin [place], [place], [place] and [place]. This disclosure is being madepursuant to the Care Everywhere program and may not contain all information available regarding this patient. Last updated 18.[facility] Allergies No known active allergies Medications * Be aware that medications may not be up to date on this document. Alwaysverify current medications with the patient. Medication Sig Dispensed Refills Start Date End Date Status fluticasone propionate (FLONASE) 50 MCG/ACT nasal spray 0 11/08/19 17 Active cromolyn (CROLOM) 4 % ophthalmic solution 1 (one) drop 4X/day 04/16/20 16 Active loratadine (CLARITIN) 10 MG tablet Take 1 (one) tablet by mouth DAILY 04/16/20 16 Active traZODone (DESYREL) 100 MG tablet Take 1 (one) tablet by mouth at bedtime 04/16/20 16 Active SUMAtriptan (IMITREX) 25 MG tablet TK 1 T PO PRF POON 0 01/20/20 19 Active diphenoxylate-atro pine (LOMOTIL) 2.5-0.025 MG tablet Take 1 tablet by mouth 3 times daily Take three times per day with meals scheduled 90 tablet 3 02/18/20 19 Active citalopram (CELEXA) 40 MG tablet TK ONE T PO QD. 2 02/23/20 19 Active QUEtiapine (SEROQUEL) 200 MG tablet 50 mg 0 03/02/20 19 Active simethicone (GAS-X) 80 MG tablet Take 1 tablet by mouth 4 times daily as needed for Gas Pain 90 tablet 10/06/19 20 Active montelukast (SINGULAIR) 10 MG tablet Take 1 tablet by mouth once daily 30 tablet 2 08/29/19 21 Active ondansetron (ZOFRAN) 4 MG tabletIndications: Gastroparesis TAKE 1 TABLET BY MOUTH EVERY 8 HOURS NEEDED FOR NAUSEA 60 tablet 5 06/28/20 21 Active FeroSul 325 (65 Fe) MG tabletIndications: Iron deficiency anemia, unspecified iron deficiency anemia type TAKE ONE TABLET BY MOUTH DAILY AT THE SAME TIME WITH VITAMIN C CAPSULE 90 tablet 3 05/23/20 22 Active albuterol HFA (Proventil; Ventolin; Proair) 108 (90 Base) MCG/ACT inhalerIndications :Moderate persistent asthma without complication (HCC) Inhale 2 (two) puffs by mouth every 4 hours as needed for Shortness of Breath, Wheezing or Cough 1 g 4 07/10/20 22 Active budesonide-formote rol (Symbicort) 80-4.5 MCG/ACT inhalerIndications :Moderate persistent asthma without complication (HCC) Inhale 2 (two) puffs by mouth 2 times daily 10.2 g 5 08/13/20 22 Active Aspirin Low Dose 81 MG tablet TAKE ONE TABLET BY MOUTH ONCE DAILY 90 tablet 2 08/22/20 22 Active blood glucose (Metrum SwedenTOUCH ULTRA TEST STRIPS) test stripIndications:T ype 2 diabetes mellitus with other specified complication, with long-term current use of insulin (HCC) Use 1 (one) strip 4 times daily - before meals & nightly 200 strip 11 11/18/19 23 Active isosorbide mononitrate CR 24hr (Imdur) 120 MG tablet Take 1 (one) tablet by mouth once daily 90 tablet 3 04/01/20 23 Active ascorbic acid (Vitamin C) 500 MG tabletIndications: Iron deficiency Take 1 (one) tablet by mouth once daily Take 1 tablet at the same time as your ferrous sulfate (iron tablet). 90 tablet 3 07/09/20 23 Active pioglitazone (Actos) 15 MG tabletIndications: Diabetic polyneuropathy associated with type 2 diabetes mellitus (HCC),Type 2 diabetes mellitus with hyperglycemia, with long-term current use of insulin ([facility]) Take 1 (one) tablet by mouth once daily 90 tablet 11 07/15/20 23 Active omeprazole (PriLOSEC) 40 MG capsule Take 1 (one) capsule by mouth daily before breakfast 30 capsule 11 08/19/20 23 Active nitroGLYCERIN (Nitrostat) 0.4 MG tablet DISSOLVE 1 TABLET UNDER THE TONGUE EVERY 5 MINUTES NEEDED FOR CHEST PAINS. IF NO RELIEF AFTER 2 DOSES CALL 911. 25 tablet 09/09/19 24 Active dicyclomine (Bentyl) 10 MG capsuleIndications :Epigastric pain TAKE ONE CAPSULE BY MOUTH FOUR TIMES A DAY NEEDED FOR ABDOMINAL PAIN 120 capsule 11 09/15/19 24 Active cyclobenzaprine (Flexeril) 10 MG tablet Take 1 (one) tablet by mouth 3 times daily as needed FOR MUSCLE SPASM 09/24/19 24 Active TRUEplus 5-Bevel Pen Tur[place] 32G X 4 MM MISCIndications:Di abetic polyneuropathy associated with type 2 diabetes mellitus (HCC) USE TO INJECT SUBCUTANEOUSLY DAILY 90 Each 10/19/19 24 Active prochlorperazine (Compazine) 10 MG tabletIndications: NAFLD (nonalcoholic fatty liver disease),Nausea and vomiting, unspecified vomiting type,Gastroparesis Take 1 (one) tablet by mouth every 8 hours as needed for Nausea/Vomiting 60 tablet 1 01/12/20 24 Active famotidine (Pepcid) 40 MG tabletIndications: Gastroesophageal reflux disease without esophagitis Take 1 (one) tablet by mouth once daily 90 tablet 3 02/01/20 24 Active tiotropium (Spiriva Respimat) 2.5 MCG/ACT inhaler Inhale 2 (two) puffs by mouth once daily 12 g 4 03/31/20 24 Active lisinopril (Prinivil; Zestril) 20 MG tablet TAKE ONE TABLET BY MOUTH DAILY 90 tablet 3 04/28/20 24 Active atorvastatin (Lipitor) 80 MG tablet TAKE ONE TABLET BY MOUTH DAILY 90 tablet 3 05/25/20 24 Active Lancets (ONETOUCH DELICA PLUS 33G EXTRA FINE LANCET)Indications :Type 2 diabetes mellitus with other specified complication, with long-term current use of insulin ([facility]) USE 1 TO TEST FOUR TIMES A DAY BEFORE MEALS AND EVERY NIGHT 100 Each 3 06/02/20 24 Active Alcohol Swabs Use 1 Each 3 times daily 100 Each 11 06/03/20 24 Active clonazePAM (KlonoPIN) 1 MG tablet Take 1 (one) tablet by mouth as needed for Anxiety 06/07/20 24 Active Trulicity 1.5 MG/0.5ML injection Inject 1.5 (one and one-half) mg subcutaneously every 7 days 06/20/20 24 Active vitamin D, ergocalciferol, (Drisdol) 1.25 MG (13539 UT) capsule TAKE ONE CAPSULE BY MOUTH EVERY SEVEN DAYS 4 capsule 2 07/25/20 24 Active metoprolol tartrate IR (Lopressor) 100 MG tablet TAKE 1 TABLET BY MOUTH TWICE A DAY 180 tablet 3 07/29/20 24 Active Lantus SoloStar penIndications:Mercedes betic polyneuropathy associated with type 2 diabetes mellitus ([facility]) INJECT 10 UNITS UNDER THE SKIN ONCE DAILY. DISCARD THE CONTENTS OF A PEN AFTER 28 DAYS OF USE 6 mL 3 08/16/20 24 Active glipiZIDE (Glucotrol) 5 MG tablet TAKE 1 TABLET BY MOUTH TWICE A DAY BEFORE BREAKFAST AND SUPPER 60 tablet 5 09/08/19 25 Active copper gluconate (Copper Caps) 2 MG capsuleIndications :Low serum copper level Take 1 (one) capsule by mouth once daily 30 capsule 4 09/01/19 25 Active Additional Information Patient not taking.Reported on 09/27/2024 gabapentin (Neurontin) 600 MG tabletIndications: Polyneuropathy TAKE 1 (ONE) TABLET BY MOUTH THREE TIMES DAILY 90 tablet 09/16/19 25 Active empagliflozin (Jardiance) 25 MG tabletIndications: Diabetic polyneuropathy associated with type 2 diabetes mellitus (HCC) TAKE ONE TABLET BY MOUTH DAILY 30 tablet 4 09/21/19 25 Active metFORMIN (Glucophage) 1000 MG tabletIndications: Diabetic polyneuropathy associated with type 2 diabetes mellitus (HCC),Type 2 diabetes mellitus with hyperglycemia, with long-term current use of insulin ([facility]) TAKE 1 TABLET BY MOUTH TWICE A DAY WITH MORNING AND EVENING MEALS 180 tablet 2 09/21/19 25 Active B Complex Vitamins (vitamin B complex) tablet Take 1 (one) tablet by mouth once daily 90 tablet 3 09/27/19 25 Active Additional Information Patient not taking.Reported on 09/27/2024 Lancet Devices (B-D LANCET DEVICE) MISC Use 1 Each 4 times daily - before meals & nightly 200 Each 11 06/01/20 19 025 Discontinued(Li st Clean-Up) Insulin Syringe-Needle U-100 26G X 1/2 1 ML MISCIndications:Ty pe 2 diabetes mellitus with other specified complication, with long-term current use of insulin ([facility]) Use 1 Each once daily As backup to insulin pump 100 Each 3 02/07/20 21 025 Discontinued(Li st Clean-Up) Blood Glucose Monitoring Suppl (ONE TOUCH ULTRA 2) w/Device KITIndications:Typ e 2 diabetes mellitus with other specified complication, with long-term current use of insulin ([facility]) Use 1 Each as directed 1 kit 03/05/20 23 025 Discontinued(Li st Clean-Up) empagliflozin (Jardiance) 25 MG tabletIndications: Diabetic polyneuropathy associated with type 2 diabetes mellitus (HCC) Take 1 (one) tablet by mouth once daily 100 tablet 4 07/07/20 23 025 Discontinued metFORMIN (Glucophage) 1000 MG tabletIndications: Diabetic polyneuropathy associated with type 2 diabetes mellitus (HCC),Type 2 diabetes mellitus with hyperglycemia, with long-term current use of insulin (HCC) Take 1 (one) tablet by mouth 2 times daily with morning and evening meal 180 tablet 11 07/15/20 23 025 Discontinued gabapentin (Neurontin) 600 MG tabletIndications: Polyneuropathy TAKE 1 (ONE) TABLET BY MOUTH THREE TIMES DAILY 90 tablet 08/22/20 24 025 Discontinued Active Problems Problem Noted Date Diagnosed Date ESTHELA (obstructive sleep apnea) 09/27/2024 Overview (09/27/2024): 05/26/24 DIAGNOSTIC inlab Respiratory Analysis: The patient's overall apnea-hypopnea index (AHI) was increased at 5.9 per hour while the respiratory effort-related arousal index was increased at 12.8 per hour. The overall respiratory disturbance index (RDI) was 18.7 per hour. The supine AHI was 12.3 per hour and the supine RERA index was 10.9 per hour. The lateral AHI was 2.3 per hour and the lateral RERA index was 13.9 per hour. The REM AHI was 13.2 per hour while the REM RERA index was 21.5 per hour. There were 1 obstructive apneas, 0 central apneas, 0 mixed apneas, 35 hypopneas, and 79 respiratory effort-related arousals (RERA). There was no evidence of periodic breathing. Oximetry Data: The minimum oxygen saturation was decreased at 88% during REM sleep and decreased at 83% during non-REM sleep. The time spent with oxygen saturation less than 90% was 28.5 minutes (7.6%) of the total diagnostic sleep time. Snoring Profile: Frequent, moderate snoring was detected during this study. Periodic Limb Movements: The patient's periodic limb movement index was within normal limits at 6.8 per hour. IMPRESSION: Moderate obstructive sleep apnea REM sleep without atonia Increased number of sleep spindles Essential hypertension 04/14/2024 Diabetic polyneuropathy asso ciated with type 2 diabetes mellitus 09/01/2021 Iron deficiency 08/27/2021 Obesity (BMI 30.0-34.9) 05/08/2021 Bipolar 1 disorder 10/16/2020 Irritable bowel syndrome with diarrhea 0 Urinary incontinence in female 01/12/2020 Pancreatic insufficiency 08/12/2018 NAFLD (nonalcoholic fatty liver disease) 018 Overview (03/03/2023): 03/02/23 Fibroscan technically poor, liver stiffness not assessable. Cardiomyopathy 05/20/2017 Overview (11/23/2017): Overview: Cardiomyopathy, unspecified type Deviated nasal septum 05/20/2017 Renal cyst 05/20/2017 Overview (01/11/2019): Overview: 2015 imaging Other than a 6 mm right upper pole cyst and a smaller hypoattenuating focus in the right interpolar kidney which is too small to characterize, the kidneys enhance symmetrically without evidence of hydronephrosis, hydroureter, or urolithiasis 2015 imaging Other than a 6 mm right upper pole cyst and a smaller hypoattenuating focus in the right interpolar kidney which is too small to characterize, the kidneys enhance symmetrically without evidence of hydronephrosis, hydroureter, or urolithiasis Gastroesophageal reflux disease without esophagi tis 05/20/2017 Hyperlipidemia 05/20/2017 Vitamin D deficiency 05/20/2017 Pulmonary nodule seen on imaging study 7 Overview (01/11/2019): Overview: Follow-up imaging needed 04/2017 A 4 mm pulmonary nodule in the right middle lobe (image 26, series 5) is indeterminate. The heart size is normal without pericardial effusion. 04/2016 Follow-up imaging needed 04/2017 A 4 mm pulmonary nodule in the right middle lobe (image 26, series 5) is indeterminate. The heart size is normal without pericardial effusion. 04/2016 Type 2 diabetes mellitus, wi th long-term current use of insulin 05/20/2017 Overview (01/11/2019): Overview: Type 2 diabetes mellitus with other circulatory complication, with long-term current use of insulin Polyneuropathy 05/20/2017 Central sleep apnea 04/24/2017 Overview (08/27/2021): Images from the original note were not included. 06/18/21 THERAPEUTIC STUDY Sleep Architecture: During this therapeutic study, the patient was monitored from 9:36 pm to 6:18 am. The patient slept for 498.5 minutes and had increased sleep efficiency of 95.4%. The patient's initial sleep latency was reduced at 5.5 minutes. The initial REM latency was slightly reduced at 79 minutes. The sleep architecture was as follows: stage N1: 2%; stage N2: 45.4%; stage N3: 28%; stage REM: 24.6%. Respiratory Analysis, Oximetry Data, and Snoring Profile: Continuous positive airway pressure (CPAP) was titrated from a minimum setting of 6 cmH2O to a maximum setting of 12 cmH2O. CPAP at the optimal level of 10 cmH2O was associated with a normal overall apnea-hypopnea index of 1 per hour and a normal respiratory-related arousal index of 3.3 per hour. The patient had a decreased minimum oxygen saturation of 85% during REM sleep and a decreased minimum oxygen saturation of 87% during non-REM sleep. No snoring was detected at optimal CPAP level. The time spent with oxygen saturation less than 90% was 1.5 minutes of the total therapeutic sleep time. Periodic limb movement index: The patient's periodic limb movement index was within normal limits at 0.6 per hour. EEG Profile: The patient's total arousal index at optimal CPAP level of 10 cmH2O was within normal limits at 5.6 per hour. There was no epileptiform activity during sleep. Cardiac profile: EKG showed normal sinus rhythm. No clinically significant arrhythmia was noted. Parasomnia Profile: No parasomnia was noted during this therapeutic study. History of non-ST elevation myocardial infarctio n (NSTEMI) 02/18/2017 Chest pain due to myocardial ischemia 12/09/2016 Overview (01/11/2019): Overview: Chest pain with high risk for cardiac etiology Assessment & Plan (11/07/2021 1:39 PM CDT): Stable and improved per her report. COntinue current regimen, Metoprolol 100mg BID, lisinopril 10mg daily, Imdur 120mg daily, ASA and atorvastatin 80mg daily. Check FLP. ECHO for new onset edema. Assessment & Plan (02/05/2021 2:51 PM CDT): Ongoing atypical chest pain with negative stress in October 2020. Typical and atypical features with history of microvascular diasease and DM, HTN, HLD. With imporved REID with inhalers. Continue aggressive risk factor modifications. Continue Imdur to 120mg daily. Continue ASA, statin, lisinopril and Metoprolol increased to 100mg BID today in clinic. Consider Jardiance for treatment of DM and CAD. Follow up with Dr. Bermudez in 6 months. Assessment & Plan (04/09/2020 3:42 PM CDT): Typical and atypical features with history of microvascular diasease and DM, HTN, HLD. With imporved DOEwith inhalers. Continue aggressive risk factor modifications. Stress ECHO and increase Imdur to 120mg daily. Continue ASA, statin, lisinopril and Metoprolol. Encounters Date Type Department Care Team Description 10/07/[address] [facility] - Endocrinology [address] [place] [address] Luiza Fernandez MD Refill Request 10/06/2024 8:30 AM CONTINUOUS ABSORPTION PROCESS OPERATOR Hospital Encounter [facility] CAT SCAN [address] [place] [address] Michael Barlow MD 09/27/2024 8:00 AM CONTINUOUS ABSORPTION PROCESS OPERATOR Office Visit [facility] - Sleep Services [address] [place] [address] Breanna Layton, TICO-FISHING TOOL SUPERVISOR ESTHELA (obstructive sleep apnea) (Primary Dx); Sleep related hypoxia; Excessive daytime sleepiness; Chronic fatigue; Restless legs syndrome (RLS); Nocturia more than twice per night; Abnormal REM sleep; Grade II diastolic dysfunction; RBC microcytosis; Vitamin B6 deficiency; Copper deficiency; Chronic insomnia; Air leak; CPAP use counseling; Obesity (BMI 30-39.9) 09/27/2024 Travel 09/21/2024 Refill [facility] - Endocrinology [address] [place] [phone] Maggie Lester MD Refill Request 09/16/2024 Orders Only [facility] - Neurology [address] [place] [phone] Yael Brock MD 09/16/2024 Refill [facility] - Endocrinology [address] [place] [phone] Buck Louise MD Refill Request 09/15/2024 Telephone [facility] - Pulmonology [address] [place] [phone] Luis Peter MD Results 09/13/2024 10:20 AM CONTINUOUS ABSORPTION PROCESS OPERATOR - 09/13/2024 11:59 PM CONTINUOUS ABSORPTION PROCESS OPERATOR Hospital Encounter [facility] LAB OP DRAW STATION [address] [place] [address] Aj Hagan MD Discharge Disposition: Home or Self Care 09/13/2024 8:28 AM CONTINUOUS ABSORPTION PROCESS OPERATOR - 09/13/2024 10:19 AM CONTINUOUS ABSORPTION PROCESS OPERATOR Hospital Encounter [facility] EEG/EMG [address] [place] [address] Aj Hagan MD Discharge Disposition: Home or Self Care 09/13/2024 Travel 09/01/2024 Orders Only [facility] - Neurology [address] [place] [phone] Yael Brock MD Low serum copper level 08/30/2024 11:45 AM CONTINUOUS ABSORPTION PROCESS OPERATOR - 08/30/2024 11:59 PM CONTINUOUS ABSORPTION PROCESS OPERATOR Hospital Encounter [facility] LAB OP DRAW STATION [address] [place] [address] Discharge Disposition: Home or Self Care 08/30/2024 10:30 AM CONTINUOUS ABSORPTION PROCESS OPERATOR Office Visit [facility] - Neurology [address] [place] [phone] Yael Brock MD Diabetic peripheral autonomic neuropathy (HCC) (Primary Dx) 08/30/2024 Travel 08/25/2024 1:06 PM CONTINUOUS ABSORPTION PROCESS OPERATOR Anesthesia Event [facility] ENDOSCOPY [address] [place] [address] Subhash Charles MD Schlarman, Nicholas C, MD 08/25/2024 12:00 PM CONTINUOUS ABSORPTION PROCESS OPERATOR - 08/25/2024 12:45 PM CONTINUOUS ABSORPTION PROCESS OPERATOR Surgery [facility] ENDOSCOPY [address] [place] [address] Ricardo Jiménez MD COLONOSCOPY SCREEN--miralax prep 08/25/2024 10:53 AM CONTINUOUS ABSORPTION PROCESS OPERATOR - 08/25/2024 2:19 PM CONTINUOUS ABSORPTION PROCESS OPERATOR Hospital Encounter [facility] OP [address] [place] [address] Ricardo Jiménez MD Surgery General Discharge Disposition: Home or Self Care 08/23/2024 Refill [facility] - Endocrinology [address] [place] [phone] Joceline Reed MD Refill Request 08/21/2024 Refill [facility] - Endocrinology [address] [place] [address], [place] [address] Buck Louise MD Refill Request 08/11/2024 Refill [facility] - Endocrinology [address] [place] [phone] Maggie Lester MD Refill Request 07/26/2024 Refill [facility] - Cardiology [address] [facility] [address] [place] [address] Diana Gonzalez, PA Refill Request 07/26/2024 Refill [facility] - Endocrinology [address] [place] [address], [place] [address] Buck Louise MD Refill Request 07/18/2024 Travel 07/12/2024 Refill [facility] - Endocrinology [address] [place] [address], [place] [address] Joceline Reed MD Refill Request 07/12/2024 Refill [facility] - Endocrinology [address] [place] [phone] Maggie Lester MD Refill Request 07/10/2024 Telephone [facility] - Pulmonology [address] [place] [phone] Luis Peter MD Results from Last 3 Months Immunizations Name Administration Dates Next Due Covid Moderna primary monova lent 12+ yr 0.5mL 01/11/2022,02/05/2021,01/31/2021 FLU VACCINE TRI IIV3 SPLIT PF IM (FLUVIRIN) 11/2016 INFLUENZA VACCINE, QUADR. (F LUZONE; FLULAVAL; FLUARIX; AFLURIA QUADRIVALENT; 6MO+), 0.5 ML (IIV4) 06/01/2019 PNEUMOCOCCAL PCV20 CONJ VAC IM 03/31/2024 iNFLUENZA VACCINE, RECOM-POON, QUADR. (FLUBLOCK QUADRIVALENT; 18Y+) (RIV4) 08/01/2021,06/06/2020 Family History Medical History Relation Name Comments Thalassemia Brother Alzheimer's Disease Father CAD (Coronary Artery Disease) Father Diabetes Father Status: Alive Hypertension Father Parkinson's Disease Father Thyroid Disease Father Cancer Maternal Grandfather Cancer Maternal Grandmother Anxiety Disorder Mother CAD (Coronary Artery Disease) Mother Cancer Mother Status: Alive Depression Mother Diabetes Mother Hypertension Mother Thyroid Disease Mother Cancer Paternal Grandfather Cancer Paternal Grandmother Depression Sister Relation Name Status Comments Brother Alive Father Maternal Grandfather Maternal Grandmother Mother Alive Paternal Grandfather Paternal Grandmother Sister Alive Social History Tobacco Use Types Packs/Day Years Used Date Smoking Tobacco: Former Cigarettes 1.5 45.3 1 978 - 12/22/2022 Smokeless Tobacco: Never Tobacco Cessation:Counseling Given: Not Answered Comments:1-2 ppd -- patient restarted smoking and just quit again in december 2022 Alcohol Use Standard Drinks/Week Comments Yes 1 (1 standard drink = 0.6 oz pur e alcohol) Yearly 4x AUDIT-C Answer Date Recorded Frequency of Alcohol [...] Sex Assigned at Female 09/05/2021 1:34 PM CONTINUOUS ABSORPTION PROCESS OPERATOR Gender Identity Female 09/05/2021 1:34 PM CONTINUOUS ABSORPTION PROCESS OPERATOR Sexual Orientation Straight 09/05/2021 1: 34 PM CONTINUOUS ABSORPTION PROCESS OPERATOR Last Filed Vital Signs Vital Sign Reading Time Taken Comments Blood Pressure 113/81 09/27/2024 9:11 AM CONTINUOUS ABSORPTION PROCESS OPERATOR Pulse 69 09/27/2024 9:11 AM CONTINUOUS ABSORPTION PROCESS OPERATOR Temperature 36.7 C (98 F) 08/25/2024 1:42 PM CONTINUOUS ABSORPTION PROCESS OPERATOR Respiratory Rate 16 08/25/2024 2:05 PM CONTINUOUS ABSORPTION PROCESS OPERATOR Oxygen Saturation 98% 08/25/2024 2:05 PM CONTINUOUS ABSORPTION PROCESS OPERATOR Inhaled Oxygen Concentration - - Weight 84.8 kg (187 lb) 09/27/2024 9:11 AM CONTINUOUS ABSORPTION PROCESS OPERATOR Height 167.6 cm (5' 6 ) 09/27/2024 9:11 AM CONTINUOUS ABSORPTION PROCESS OPERATOR Body Mass Index 30.18 09/27/2024 9:11 AM CONTINUOUS ABSORPTION PROCESS OPERATOR Plan of Treatment Upcoming Encounters Date Type Department Care Team (Late st Contact Info) Description 11/03/2024 4:00 PM CDT Office Visit [facility] - Pulmonology [address] [place] [address], [place] [address] Luis Peter MD [facility]ULMONARY [facility] [phone] 12/21/2024 2:20 PM CDT Office Visit [facility] - Endocrinology [address] [place] [address], [place] [phone] Joceline Reed MD [address] [place] [phone] 12/29/2024 8:30 AM CDT Office Visit [facility] - GI [address] [place] [address], [place] [address] 01/17/2025 1:00 PM CDT Office Visit [facility] - Neurology [address] [place] [address], [place] [phone] Yael Brock MD [address] [place] [address] [address] [place] [phone] 2025 8:40 AM CDT Office Visit [facility] - Sleep Services [address] [place] [phone] Breanna Layton, TICO-FISHING TOOL SUPERVISOR [address] [place] [address] [address] DIV OF PULMONARY/[place] [address] Health Maintenance Due Date Last Done Comments COLOGUARD (AGES 45-75) - COLON CA SCREENING 1964 CT COLONOGRAPHY - COLON CA SCREENING 1964 FIT - COLON CA SCREENING 1964 FLEX SIG - COLON CA SCREENING 1964 HIV SCREENING 01/25/1979 DTAP/TDAP/TD VACCINES (1 - Tdap) 01/25/1983 ZOSTER VACCINE (1 of 2) 01/25/2014 DIABETES RETINOPATHY SCREENING 06/20/2018 06/20/2016, 06/20/2016 MAMMOGRAM 02/23/2019 02/23/2017, 07/10/2016, 01/02/2015, Additional history exists LUNG CANCER SCREENING 09/24/2022 09/24/2021 DIABETES-FOOT EXAM WITH MONOFILAMENT 11/12/2022 11/12/2021, 07/04/2020, 01/11/2019 DIABETES-HGB A1C 01/11/2024 10/13/2023, , 11/12/2021, Additional history exists Respiratory Syncytial Virus (RSV) Vaccine Pt: or over 60 yrs (1 - Risk 60-74 years 1-dose series) 2024 COVID-19 VACCINE ( season) 2024 01/11/2022, 02/05/2021, 01/31/2021 INFLUENZA VACCINE (#1) 2024 , 08/01/2021, 06/06/2020, Additional history exists DIABETES - URINE PROTEIN SCREENING 08/24/2024 06/09/2023, 12/02/2021, 07/04/2020, Additional history exists DIABETES-SERUM CREATININE 10/13/20242023, 06/09/2023, 10/15/2021, Additional history exists COLON MONITORING 08/25/2034 08/25/2024, 08/25/2024 COLONOSCOPY - COLON CA SCREENING 08/25/2034 08/25/2024, 08/25/2024 Colorectal Cancer Screening 08/25/2034 HEPATITIS C SCREENING Completed 04/24/2016 PNEUMOCOCCAL VACCINE 50+ Completed 03/31/2024 HEPATITIS B VACCINE Aged Out No longe r eligible based on patient's age to complete this topic HIB VACCINE Aged Out No longer eligi ble based on patient's age to complete this topic HPV VACCINE Aged Out No longer eligi ble based on patient's age to complete this topic MENINGOCOCCAL (Group B) VACCINE Aged Out No longer eligible based on patient's age to complete this topic MENINGOCOCCAL VACCINE Aged Out No gale lio eligible based on patient's age to complete this topic Goals Goal Patient Goal Type Associated Problems Recent Progress Patient-Stated? Author Medication Management General On track( 2:44 PM CONTINUOUS ABSORPTION PROCESS OPERATOR) Tammy Sanchez RN Note: Expected end date: ongoing Interventions: Take all medications as prescribed Let your doctor know right away about any changes in your medications Make sure to request a refill of your medication at least one week prior to your last dose Safety General On track( 2:44 PM CONTINUOUS ABSORPTION PROCESS OPERATOR) Kylah Genao RN Note: Expected end date: ongoing Interventions: Your nurse will assess your risk for falls/injury each visit Use appropriate and safe transfer methods Keep personal items within easy reach Use some light at night in your room Keep walking paths clutter free and clear Procedures Procedure Name Priority Date/Time Associated Diagnosis Comments PROTEIN ELECTROPHORESIS URINE RANDOM PANEL 09/16/2024 12:05 PM CONTINUOUS ABSORPTION PROCESS OPERATOR PROTEIN ELECTROPHORESIS URINE RANDOM Routine 09/13/2024 10:36 AM CONTINUOUS ABSORPTION PROCESS OPERATOR Diabetic peripheral autonomic neuropathy (HCC) EEG Routine 09/13/2024 8:49 AM CONTINUOUS ABSORPTION PROCESS OPERATOR Diabetic peripheral autonomic neuropathy (HCC) VITAMIN B12 Routine 08/30/2024 12:26 PM CONTINUOUS ABSORPTION PROCESS OPERATOR Diabetic peripheral autonomic neuropathy (HCC) CBC W AUTO DIFFERENTIAL Routine 08/30/2024 12:26 PM CONTINUOUS ABSORPTION PROCESS OPERATOR Moderate persistent asthma without complication (HCC) IMMUNOSCORE IGE INTERP Routine 08/30/2024 12:17 PM CONTINUOUS ABSORPTION PROCESS OPERATOR Moderate persistent asthma without complication (HCC) COPPER BLOOD Routine 08/30/2024 12:17 PM CONTINUOUS ABSORPTION PROCESS OPERATOR Diabetic peripheral autonomic neuropathy (HCC) VITAMIN E Routine 08/30/2024 12:17 PM CONTINUOUS ABSORPTION PROCESS OPERATOR Diabetic peripheral autonomic neuropathy (HCC) VITAMIN B6 Routine 08/30/2024 12:17 PM CONTINUOUS ABSORPTION PROCESS OPERATOR Diabetic peripheral autonomic neuropathy (HCC) IGE BLOOD Routine 08/30/2024 12:17 PM CONTINUOUS ABSORPTION PROCESS OPERATOR Moderate persistent asthma without complication (HCC) ALLERGEN RESPIRATORY PNL REGION 8 ([place]) Routine 08/30/2024 12:17 PM CONTINUOUS ABSORPTION PROCESS OPERATOR Moderate persistent asthma without complication (HCC) PROTEIN ELECTROPHORESIS BLOOD Routine 08/30/2024 12:17 PM CONTINUOUS ABSORPTION PROCESS OPERATOR Diabetic peripheral autonomic neuropathy (HCC) PATHOLOGY TISSUE Routine 08/25/2024 1:24 PM CONTINUOUS ABSORPTION PROCESS OPERATOR Screen for colon cancer ENDOSCOPY, COLON, SCREENING Routine 08/25/2024 1:09 PM CONTINUOUS ABSORPTION PROCESS OPERATOR [place] COLOREC CANC SCRN,SCOPY NOT HI RISK 08/25/2024 1:01 PM CONTINUOUS ABSORPTION PROCESS OPERATOR Screen for colon cancer Special Needs Message Received: Today Mily Mcintosh MD [facility] Schedulers - Endoscopy Pool Ms, We would like to schedule the above patient for an outpatient Colonoscopy next available with any attending and MAC. The indication is Surveillance colonoscopy, hx of polyps . No medication changes are needed prior to the procedure. Anticoagulation: None Didn't tolerate Golytely prep previously (Miralax/Gatorade/Bisacodyl is ok) I appreciate your help in arranging the patient's procedure. Thank you, Mily Mcintosh MD Received Date Received Time Jun 27, 2024 3:05 PM GLUCOSE - POINT OF CARE Routine 08/25/2024 12:00 PM CONTINUOUS ABSORPTION PROCESS OPERATOR COMPREHENSIVE METABOLIC PANEL Routine 10/13/2023 12:55 PM CONTINUOUS ABSORPTION PROCESS OPERATOR Diabetic polyneuropathy associated with type 2 diabetes mellitus (HCC) HEMOGLOBIN A1C - POINT OF CARE (AMB) SLU Routine 10/13/2023 11:33 AM CONTINUOUS ABSORPTION PROCESS OPERATOR Diabetic polyneuropathy associated with type 2 diabetes mellitus (HCC) MICROALB/CREAT RATIO URINE RANDOM PANEL Routine 06/09/2023 12:44 PM CDT Type 2 diabetes mellitus with hyperglycemia, with long-term current use of insulin (HCC) CT LUNG SCREEN LOW DOSE Routine 09/24/2021 10:13 AM CONTINUOUS ABSORPTION PROCESS OPERATOR Ex-smoker HEPATITIS C ANTIBODY Routine 04/24/2016 1:05 PM CDT from Last 3 Months or Most Recently Relevant to Health Maintenance Results * (ABNORMAL) PROTEIN ELECTROPHORESIS URINE RANDOM PANEL (09/16/2024 12:05 PM CONTINUOUS ABSORPTION PROCESS OPERATOR) Creatinine Urine 33 20 - 275 mg/dL [facility] Protein/Creatinine Ratio NOTE 24 - 184 mg/g creat [facility] Comment: THE PROTEIN VALUE IS LESS THAN 4 MG/DL THEREFORE WE ARE UNABLE TO CALCULATE EXCRETION AND/OR CREATININE RATIO. Protein/Creatinine Ratio NOTE 0.024 - 0.184 mg/mg creat [facility] Protein Random Urine <4(L) 5 - 24 mg/dL [facility] Comment: Verified by repeat analysis. Albumin 0 % [facility] Alpha-1 Globulin 0 % [facility] [id number] 0 % [facility] Beta-Globulin 0 % [facility] Gamma Globulin 0 % [facility] Abnormal Protein Band [facility] Abnormal Protein Band 2 [facility] Abnormal Protein Band 3 [facility] Interpretation [facility] Comment: Agarose electrophoresis of urine reveals that quantities of albumin and globulin fractions are below the level of detection by this method. No abnormal protein is observed. The supplier of the testing reagents for this assay has changed. Detection of small monoclonal proteins may vary by test system. Urine immunofixation is suggested if clinically indicated and not already ordered. REPORT COMMENT: FASTING:YES Test Performed at: [facility] [employer] [id number] [place] [address] GRETEL ZACARIAS MD 09/16/2024 12:0 5 PM CONTINUOUS ABSORPTION PROCESS OPERATOR 09/16/2024 12:06 PM CONTINUOUS ABSORPTION PROCESS OPERATOR Yael Brock MD LAB - URINE CHEMISTR Y ORDERABLES [facility] [address] [place] [address] * PROTEIN ELECTROPHORESIS URINE RANDOM (09/13/2024 10:36 AM CONTINUOUS ABSORPTION PROCESS OPERATOR) Interpretation Urine PE See Comment Normal Pattern 09/15/2024 2:59 PM CONTINUOUS ABSORPTION PROCESS OPERATOR [facility] Comment: Urine protein electrophoresis shows a band corresponding to albumin with small amounts of other nonspecific proteinuria. No monoclonal immunoglobulins detected. Felipa Myles PhD, [facility] Clinical Oncology Research Rn load dropper Protein Urine <7 Not Established mg/dL 09/15/2024 2:59 PM CONTINUOUS ABSORPTION PROCESS OPERATOR [facility] Urine URINE SPECIMEN OBTAINED BY CLEAN CATCH PROCEDURE / Unknown Collection / Unknown 09/13/2024 10:36 AM CONTINUOUS ABSORPTION PROCESS OPERATOR 09/13/2024 11:22 AM CONTINUOUS ABSORPTION PROCESS OPERATOR Yael Brock MD LAB - URINE CHEMISTR Y ORDERABLES [address] [address], [facility] [phone] * EEG (09/13/2024 8:49 AM CONTINUOUS ABSORPTION PROCESS OPERATOR) Narrative Aj Hagan MD - 09/13/2024 8:49 AM CONTINUOUS ABSORPTION PROCESS OPERATOR Aj Hagan MD 09/13/2024 11:34 AM EEG REPORT Patient Name: Sylvia Griffin EEG#: [id number] Start Time: 09:15 AM 09/13/2024 Stop Time: 09:45 AM 09/13/2024 Clinical History: Sylvia Griffin is a 59 year old female with episodic altered mental state. This EEG is ordered for seizures. Current medications Current Outpatient Medications Medication Sig albuterol HFA (Proventil; Ventolin; Proair) 108 (90 Base) MCG/ACT inhaler Inhale 2 (two) puffs by mouth every 4 hours as needed for Shortness of Breath, Wheezing or Cough Alcohol Swabs Use 1 Each 3 times daily ascorbic acid (Vitamin C) 500 MG tablet Take 1 (one) tablet by mouth once daily Take 1 tablet at the same time as your ferrous sulfate (iron tablet). Aspirin Low Dose 81 MG tablet TAKE ONE TABLET BY MOUTH ONCE DAILY atorvastatin (Lipitor) 80 MG tablet TAKE ONE TABLET BY MOUTH DAILY blood glucose ([employer] ULTRA TEST STRIPS) test strip Use 1 (one) strip 4 times daily - before meals & nightly Blood Glucose Monitoring Suppl (ONE TOUCH ULTRA 2) w/Device KIT Use 1 Each as directed budesonide-formoterol (Symbicort) 80-4.5 MCG/ACT inhaler Inhale 2 (two) puffs by mouth 2 times daily citalopram (CELEXA) 40 MG tablet TK ONE T PO QD. clonazePAM (KlonoPIN) 1 MG tablet Take 1 (one) tablet by mouth as needed for Anxiety copper gluconate (Copper Caps) 2 MG capsule Take 1 (one) capsule by mouth once daily cromolyn (CROLOM) 4 % ophthalmic solution 1 (one) drop 4X/day cyclobenzaprine (Flexeril) 10 MG tablet Take 1 (one) tablet by mouth 3 times daily as needed FOR MUSCLE SPASM dicyclomine (Bentyl) 10 MG capsule TAKE ONE CAPSULE BY MOUTH FOUR TIMES A DAY NEEDED FOR ABDOMINAL PAIN diphenoxylate-atropine (LOMOTIL) 2.5-0.025 MG tablet Take 1 tablet by mouth 3 times daily Take three times per day with meals scheduled empagliflozin (Jardiance) 25 MG tablet Take 1 (one) tablet by mouth once daily famotidine (Pepcid) 40 MG tablet Take 1 (one) tablet by mouth once daily FeroSul 325 (65 Fe) MG tablet TAKE ONE TABLET BY MOUTH DAILY AT THE SAME TIME WITH VITAMIN C CAPSULE fluticasone propionate (FLONASE) 50 MCG/ACT nasal spray gabapentin (Neurontin) 600 MG tablet TAKE 1 (ONE) TABLET BY MOUTH THREE TIMES DAILY glipiZIDE (Glucotrol) 5 MG tablet TAKE 1 TABLET BY MOUTH TWICE A DAY BEFORE BREAKFAST AND SUPPER Insulin Syringe-Needle U-100 26G X 1/2 1 ML MISC Use 1 Each once daily As backup to insulin pump isosorbide mononitrate CR 24hr (Imdur) 120 MG tablet Take 1 (one) tablet by mouth once daily Lancet Devices (B-D LANCET DEVICE) MISC Use 1 Each 4 times daily - before meals & nightly Lancets (ONETOUCH DELICA PLUS 33G EXTRA FINE LANCET) USE 1 TO TEST FOUR TIMES A DAY BEFORE MEALS AND EVERY NIGHT Lantus SoloStar pen INJECT 10 UNITS UNDER THE SKIN ONCE DAILY. DISCARD THE CONTENTS OF A PEN AFTER 28 DAYS OF USE lisinopril (Prinivil; Zestril) 20 MG tablet TAKE ONE TABLET BY MOUTH DAILY loratadine (CLARITIN) 10 MG tablet Take 1 (one) tablet by mouth DAILY metFORMIN (Glucophage) 1000 MG tablet Take 1 (one) tablet by mouth 2 times daily with morning and evening meal metoprolol tartrate IR (Lopressor) 100 MG tablet TAKE 1 TABLET BY MOUTH TWICE A DAY montelukast (SINGULAIR) 10 MG tablet Take 1 tablet by mouth once daily nitroGLYCERIN (Nitrostat) 0.4 MG tablet DISSOLVE 1 TABLET UNDER THE TONGUE EVERY 5 MINUTES NEEDED FOR CHEST PAINS. IF NO RELIEF AFTER 2 DOSES CALL 911. omeprazole (PriLOSEC) 40 MG capsule Take 1 (one) capsule by mouth daily before breakfast ondansetron (ZOFRAN) 4 MG tablet TAKE 1 TABLET BY MOUTH EVERY 8 HOURS NEEDED FOR NAUSEA pioglitazone (Actos) 15 MG tablet Take 1 (one) tablet by mouth once daily prochlorperazine (Compazine) 10 MG tablet Take 1 (one) tablet by mouth every 8 hours as needed for Nausea/Vomiting QUEtiapine (SEROQUEL) 200 MG tablet 50 mg (Patient not taking: Reported on 08/25/2024) simethicone (GAS-X) 80 MG tablet Take 1 tablet by mouth 4 times daily as needed for Gas Pain SUMAtriptan (IMITREX) 25 MG tablet TK 1 T PO PRF POON tiotropium (Spiriva Respimat) 2.5 MCG/ACT inhaler Inhale 2 (two) puffs by mouth once daily traZODone (DESYREL) 100 MG tablet Take 1 (one) tablet by mouth TRUEplus 5-Bevel Pen [place] 32G X 4 MM [facility] USE TO INJECT SUBCUTANEOUSLY DAILY Trulicity 1.5 MG/0.5ML injection Inject 1.5 (one and one-half) mg subcutaneously every 7 days vitamin D, ergocalciferol, (Drisdol) 1.25 MG (56665 UT) capsule TAKE ONE CAPSULE BY MOUTH EVERY SEVEN DAYS No current facility-administered medications for this encounter. Description This is a routine 21-channel EEG tracing consisting of 20 channels of EEG obtained from electrodes placed on the scalp according to the international 10-20 system, T1 and T2 electrodes, and one channel of EKG monitoring. Background The awake background consisted of a posterior dominant rhythm of 8-10Hz of normal amplitude. Drowsy state was identified in the form of background attenuation and decreased myogenic artifact.Stage 1 and Stage 2 sleep was not identified. Drowsy state was not identified. Photic stimulation were performed and elicited no abnormalities. EKG was observed throughout the recording. IMPRESSION This is a normal awake and drowsy EEG. Carol Huizar MD I reviewed the study in its entirety, and formulated the above report. Aj Hagan MD Yael Brock MD NEUROLOGY ORDERABLES * (ABNORMAL) CBC W/ DIFFERENTIAL (08/30/2024 12:26 PM [facility]) WBC 9.5 4.0 - 10.7 x10E9/L 08/30/2024 12:45 PM [facility] RBC Count 5.09 3.90 - 5.20 x10E12/L 08/30/2024 12:45 PM [facility] Hemoglobin 12.6 11.9 - 15.8 g/dL 08/30/2024 12:45 PM [facility] Hematocrit 39.3 34.8 - 46.1 % 08/30/2024 12:45 PM [facility] MCV 77.2(L) 80.0 - 98.0 fL 08/30/2024 12:45 PM [facility] MCH 24.8(L) 26.7 - 33.6 pg 08/30/2024 12:45 PM [facility] MCHC 32.1 31.7 - 36.3 g/dL 08/30/2024 12:45 PM [facility] RDW-CV 14.5 11.3 - 14.8 % 08/30/2024 12:45 PM [facility] Platelet Count 224 150 - 420 x10E9/L 08/30/2024 12:45 PM [facility] MPV 11.7(H) 7.8 - 11.4 fL 08/30/2024 12:45 PM [facility] Neutrophil % 69.7 41.0 - 74.0 % 08/30/2024 12:45 PM [facility] Lymphocyte % 17.1 17.0 - 47.0 % 08/30/2024 12:45 PM [facility] Monocyte % 7.3 3.0 - 11.0 % 08/30/2024 12:45 PM [facility] Eosinophil % 4.8 0.0 - 7.0 % 08/30/2024 12:45 PM [facility] Basophil % 0.8 0.0 - 1.6 % 08/30/2024 12:45 PM [facility] Immature Granulocytes % 0.3 0.0 - 1.0 % 08/30/2024 12:45 PM [facility] Neutrophil Absolute 6.60 1.60 - 7.50 x10E9/L 08/30/2024 12:45 PM [facility] Lymphocyte Absolute 1.62 1.00 - 4.40 x10E9/L 08/30/2024 12:45 PM [facility] Monocyte Absolute 0.69 0.15 - 1.00 x10E9/L 08/30/2024 12:45 PM [facility] Eosinophil Absolute 0.45 0.00 - 0.60 x10E9/L 08/30/2024 12:45 PM [facility] Basophil Absolute 0.08 0.00 - 0.13 x10E9/L 08/30/2024 12:45 PM [facility] Blood BLOOD SPECIMEN / Unknown Lab Venipuncture / Unknown 08/30/2024 12:26 PM CONTINUOUS ABSORPTION PROCESS OPERATOR 08/30/2024 12:27 PM CONTINUOUS ABSORPTION PROCESS OPERATOR Michael Barlow MD LAB - HEMATOLOGY ORD ERABLES [address] [address], [facility] [phone] * VITAMIN B12 (08/30/2024 12:26 PM CONTINUOUS ABSORPTION PROCESS OPERATOR) Vitamin B12 491 213 - 816 pg/mL 08/30/2024 1:30 PM [facility] Blood BLOOD SPECIMEN / Unknown Lab Venipuncture / Unknown 08/30/2024 12:26 PM CONTINUOUS ABSORPTION PROCESS OPERATOR 08/30/2024 12:27 PM CONTINUOUS ABSORPTION PROCESS OPERATOR Yael Brock MD LAB - CHEMISTRY ORDE [place] [address] [address] [phone] * IMMUNOSCORE IGE INTERP (08/30/2024 12:17 PM CONTINUOUS ABSORPTION PROCESS OPERATOR) [facility] Immunocap Score See Note 3:58 PM CONTINUOUS ABSORPTION PROCESS OPERATOR [facility] ([facility]) Comment: REFERENCE INTERVAL: Allergen, Interpretation Less than 0.10 kU/L......Class 0.....No significant level detected 0.10-0.34 kU/L...........Class 0/1...Clinical relevance undetermined 0.35-0.70 kU/L...........Class 1.....Low 0.71-3.50 kU/L...........Class 2.....Moderate 3.51-17.50 kU/L..........Class 3.....High 17.51-50.00 kU/L.........Class 4.....Very High 50.01-100.00 kU/L........Class 5.....Very High Greater than 100.00kU/L..Class 6.....Very High Allergen results of 0.10-0.34 kU/L are intended for specialist use as the clinical relevance is undetermined. Even though increasing ranges are reflective of increasing concentrations of allergen-specific IgE, these concentrations may not correlate with the degree of clinical response or skin testing results when challenged with a specific allergen. The correlation of allergy laboratory results with clinical history and in vivo reactivity to specific allergens is essential. A negative test may not rule out clinical allergy or even anaphylaxis. Performed By: [facility] [address] [place] [id number] Electrocardiographic Technician: Benjamin Barnett MD, PhD CLIA Number: [id number] Blood BLOOD SPECIMEN / Unknown Lab Venipuncture / Unknown 08/30/2024 12:17 PM CONTINUOUS ABSORPTION PROCESS OPERATOR 08/30/2024 12:17 PM CONTINUOUS ABSORPTION PROCESS OPERATOR Michael Barlow MD LAB - SEROLOGY ORDER [facility]) [address] [place] [address] * VITAMIN E (08/30/2024 12:17 PM CONTINUOUS ABSORPTION PROCESS OPERATOR) Pathologist [facility] Vitamin E Alpha Tocopherol 7.9 5.5 - 18.0 mg/L 09/02/2024 3:57 PM CONTINUOUS ABSORPTION PROCESS OPERATOR [facility] ([facility]) Comment: This test was developed and its performance characteristics determined by [facility]. It has not been cleared or approved by the [place] Food and Drug Administration. This test was performed in a CLIA certified laboratory and is intended for clinical purposes. Vitamin E Gamma Tocopherol 1.4 0.0 - 6.0 mg/L 09/02/2024 3:57 PM CONTINUOUS ABSORPTION PROCESS OPERATOR [facility] ([facility]) Comment: Performed By: [facility] [address] [place] [address] Electrocardiographic Technician: Benjamin Barnett MD, PhD CLIA Number: [id number] Blood BLOOD SPECIMEN / Unknown Lab Venipuncture / Unknown 08/30/2024 12:17 PM CONTINUOUS ABSORPTION PROCESS OPERATOR 08/30/2024 12:17 PM CONTINUOUS ABSORPTION PROCESS OPERATOR Yael Brock MD LAB - CHEMISTRY ORDE [facility] Organization Address [facility]/State/ZIP Co de Phone Number [facility]) [address] [place] [address] * (ABNORMAL) VITAMIN B6 (08/30/2024 12:17 PM CONTINUOUS ABSORPTION PROCESS OPERATOR) [facility] Vitamin B6 18.9(L) 20.0 - 125.0 nmol/L 09/02/2024 6:31 AM CONTINUOUS ABSORPTION PROCESS OPERATOR [facility] ([facility]) Comment: INTERPRETIVE INFORMATION: Vitamin B6 (Pyridoxal 5-Phosphate) Pyridoxal 5'-phosphate measured in a specimen collected following an 8-hour or overnight fast accurately indicates vitamin B6 nutritional status. Non-fasting specimen concentration reflects recent vitamin intake. This test was developed and its performance characteristics determined by [facility]. It has not been cleared or approved by the [place] Food and Drug Administration. This test was performed in a CLIA certified laboratory and is intended for clinical purposes. Performed By: [facility] [address] [place] [address] Electrocardiographic Technician: Benjamin Barnett MD, PhD CLIA Number: [id number] Blood BLOOD SPECIMEN / Unknown Lab Venipuncture / Unknown 08/30/2024 12:17 PM CONTINUOUS ABSORPTION PROCESS OPERATOR 08/30/2024 12:17 PM CONTINUOUS ABSORPTION PROCESS OPERATOR Yael Brock MD LAB - CHEMISTRY CHARLI CREWS [facility] Organization Address City/State/ZIP Co de Phone Number [facility]) [address] [place] [address], [facility] * (ABNORMAL) ALLERGEN RESPIRATORY PNL REGION 8 ([place]) (08/30/2024 12:17 PM CONTINUOUS ABSORPTION PROCESS OPERATOR) IgE Total 102 <=214 kU/L 09/01/2024 3:56 PM CONTINUOUS ABSORPTION PROCESS OPERATOR [facility] ([facility]) Comment: REFERENCE INTERVAL: Immunoglobulin E, Serum Access complete set of age- and/or gender-specific reference intervals for this test in the [facility] Test Directory ([employer]). Allergen Bowen Elder <0.10 <=0.34 kU/L 09/01/2024 3:56 PM CONTINUOUS ABSORPTION PROCESS OPERATOR [facility] ([facility]) Allergen Alternaria alternata <0.10 <=0.34 kU/L 09/01/2024 3:56 PM CONTINUOUS ABSORPTION PROCESS OPERATOR [facility] ([facility]) Allergen [place] Maple 0.11 <=0.34 kU/L 09/01/2024 3:56 PM CONTINUOUS ABSORPTION PROCESS OPERATOR [facility]) Allergen Cat Dander <0.10 <=0.34 kU/L 09/01/2024 3:56 PM CONTINUOUS ABSORPTION PROCESS OPERATOR [facility] ([facility]) Allergen Mountain [place] <0.10 <=0.34 kU/L 09/01/2024 3:56 PM CONTINUOUS ABSORPTION PROCESS OPERATOR [facility] ([facility]) Allergen Mcdonough Tree 0.25 <=0.34 kU/L 09/01/2024 3:56 PM CONTINUOUS ABSORPTION PROCESS OPERATOR [facility] ([facility]) Allergen Rough Pigweed 0.22 <=0.34 kU/L 09/01/2024 3:56 PM CONTINUOUS ABSORPTION PROCESS OPERATOR [facility] ([facility]) Allergen Cape Verdean Thistle 0.40(H) <=0.34 kU/L 09/01/2024 3:56 PM CONTINUOUS ABSORPTION PROCESS OPERATOR [facility] ([facility]) Allergen Ricardo Grass 0.81(H) <=0.34 kU/L 09/01/2024 3:56 PM CONTINUOUS ABSORPTION PROCESS OPERATOR [facility] ([facility]) Allergen Hormodendrum <0.10 <=0.34 kU/L 09/01/2024 3:56 PM CONTINUOUS ABSORPTION PROCESS OPERATOR [facility] ([facility]) Allergen Elm 0.24 <=0.34 kU/L 09/01/2024 3:56 PM CONTINUOUS ABSORPTION PROCESS OPERATOR [facility] ([facility]) Allergen [place] <0.10 <=0.34 kU/L 09/01/2024 3:56 PM CONTINUOUS ABSORPTION PROCESS OPERATOR [facility] ([facility]) Allergen A fumigatus IgE <0.10 <=0.34 kU/L 09/01/2024 3:56 PM CONTINUOUS ABSORPTION PROCESS OPERATOR [facility] ([facility]) Allergen Dermatophagoides pteronyssinus <0.10 <=0.34 kU/L 09/01/2024 3:56 PM CONTINUOUS ABSORPTION PROCESS OPERATOR [facility] ([facility]) Allergen Dermatophagoides farinae <0.10 <=0.34 kU/L 09/01/2024 3:56 PM CONTINUOUS ABSORPTION PROCESS OPERATOR [facility] ([facility]) Allergen Bermuda Grass <0.10 <=0.34 kU/L 09/01/2024 3:56 PM CONTINUOUS ABSORPTION PROCESS OPERATOR [facility] ([facility]) Allergen White Darrion 0.35(H) <=0.34 kU/L 09/01/2024 3:56 PM CONTINUOUS ABSORPTION PROCESS OPERATOR [facility] ([facility]) Allergen P. Notatum <0.10 <=0.34 kU/L 09/01/2024 3:56 PM CONTINUOUS ABSORPTION PROCESS OPERATOR [facility] ([facility]) Allergen Common Ragweed <0.10 <=0.34 kU/L 09/01/2024 3:56 PM CONTINUOUS ABSORPTION PROCESS OPERATOR [facility] ([facility]) Allergen Cockroach Luxembourgish <0.10 <=0.34 kU/L 09/01/2024 3:56 PM CONTINUOUS ABSORPTION PROCESS OPERATOR [facility] ([facility]) Allergen Amston Tree <0.10 <=0.34 kU/L 09/01/2024 3:56 PM CONTINUOUS ABSORPTION PROCESS OPERATOR [facility] ([facility]) Allergen [place] Tree <0.10 <=0.34 kU/L 09/01/2024 3:56 PM CONTINUOUS ABSORPTION PROCESS OPERATOR [facility] ([facility]) Allergen Pecan Tree <0.10 <=0.34 kU/L 09/01/2024 3:56 PM CONTINUOUS ABSORPTION PROCESS OPERATOR [facility] [facility] [place] [facility]) Allergen Mouse Epithelium IgE <0.10 <=0.34 kU/L 09/01/2024 3:56 PM CONTINUOUS ABSORPTION PROCESS OPERATOR [facility]) Allergen Mucor racemosus <0.10 <=0.34 kU/L 09/01/2024 3:56 PM CONTINUOUS ABSORPTION PROCESS OPERATOR [facility] [place] [facility]) Allergen White [place] IgE <0.10 <=0.34 kU/L 09/01/2024 3:56 PM CONTINUOUS ABSORPTION PROCESS OPERATOR [facility] [place] [facility]) Allergen Dog Dander <0.10 <=0.34 kU/L 09/01/2024 3:56 PM CONTINUOUS ABSORPTION PROCESS OPERATOR [facility] [place] ([facility]) Comment: Performed By: [facility] [employer] [address] [place] [address] Electrocardiographic Technician: Benjamin Barnett MD, PhD CLIA Number: [id number] Blood BLOOD SPECIMEN / Unknown Lab Venipuncture / Unknown 08/30/2024 12:17 PM CONTINUOUS ABSORPTION PROCESS OPERATOR 08/30/2024 12:17 PM CONTINUOUS ABSORPTION PROCESS OPERATOR Michael Barlow MD LAB - [facility]Y [facility] Organization Address City/State/ZIP Co de Phone Number [facility]) [address] [place] [address], [facility] * (ABNORMAL) COPPER BLOOD (08/30/2024 12:17 PM CONTINUOUS ABSORPTION PROCESS OPERATOR) Copper 72.8(L) 80.0 - 155.0 ug/dL 09/01/2024 7:31 AM CONTINUOUS ABSORPTION PROCESS OPERATOR [facility] [place] ([facility]) Comment: INTERPRETIVE INFORMATION: Copper, Serum or Plasma Elevated results may be due to skin or collection-related contamination, including the use of a noncertified metal-free collection/transport tube. If contamination concerns exist due to elevated levels of serum/plasma copper, confirmation with a second specimen collected in a certified metal-free tube is recommended. Serum copper may be elevated with infection, inflammation, stress, and copper supplementation. In females, elevated copper may also be caused by oral contraceptives and (concentrations may be elevated up to 3 times normal during the third trimester). This test was developed and its performance characteristics determined by [facility]. It has not been cleared or approved by the US Food and Drug Administration. This test was performed in a CLIA certified laboratory and is intended for clinical purposes. Performed By: [facility] [address] [place] [address] Electrocardiographic Technician: Benjamin Barnett MD, PhD CLIA Number: [id number] Blood BLOOD SPECIMEN / Unknown Lab Venipuncture / Unknown 08/30/2024 12:17 PM CONTINUOUS ABSORPTION PROCESS OPERATOR 08/30/2024 12:17 PM CONTINUOUS ABSORPTION PROCESS OPERATOR Yael Brock MD LAB - CHEMISTRY ORDE ELEONORA [facility] [place] [facility]) [address] [place] [address], [facility] * PROTEIN ELECTROPHORESIS BLOOD (08/30/2024 12:17 PM CONTINUOUS ABSORPTION PROCESS OPERATOR) Interpretation Serum PE Normal Pattern Normal Pattern 09/01/2024 4:15 PM [facility] Comment: Serum capillary electrophoresis shows characteristic bands corresponding to albumin, alpha and beta globulins and polyclonal immunoglobulins. No monoclonal immunoglobulin detected. Non-secretory myeloma (NSM) and light chain only myeloma cannot be excluded based on this result. Recommend serum free light chain measurements for complete evaluation of plasma cell disorders. Felipa Myles PhD, [facility] Clinical Oncology Research Rn load dropper *The electrophoresis pattern and the interpretation have been reviewed and verified by the teaching physician. Protein Total 6.5 6.0 - 8.3 g/dL 09/01/2024 4:15 PM [facility] Albumin 3.9 3.3 - 5.6 g/dL 09/01/2024 4:15 PM [facility] Alpha-1 Globulins 0.2 0.2 - 0.4 g/dL 09/01/2024 4:15 PM [facility] Alpha-2 Globulins 0.7 0.5 - 1.0 g/dL 09/01/2024 4:15 PM [facility] Beta Globulins 0.7 0.6 - 1.1 g/dL 09/01/2024 4:15 PM [facility] Gamma Globulins 0.9 0.6 - 1.6 g/dL 09/01/2024 4:15 PM CONTINUOUS ABSORPTION PROCESS OPERATOR [facility] Blood BLOOD SPECIMEN / Unknown Lab Venipuncture / Unknown 08/30/2024 12:17 PM CONTINUOUS ABSORPTION PROCESS OPERATOR 08/30/2024 12:17 PM CONTINUOUS ABSORPTION PROCESS OPERATOR Yael Brock MD LAB - CHEMISTRY CHARLI CREWS [facility] [place] [id number] [place] [address], [facility] [phone] * IGE BLOOD (08/30/2024 12:17 PM CONTINUOUS ABSORPTION PROCESS OPERATOR) IgE Total 113 <=214 kU/L 09/01/2024 5:23 AM CONTINUOUS ABSORPTION PROCESS OPERATOR [facility] [employer] ([facility]) Comment: REFERENCE INTERVAL: Immunoglobulin E, Serum Access complete set of age- and/or gender-specific reference intervals for this test in the [facility] Test Directory ([employer]). Performed By: [employer] [address] [place] [address] Electrocardiographic Technician: Benjamin Barnett MD, PhD CLIA Number: [id number] Blood BLOOD SPECIMEN / Unknown Lab Venipuncture / Unknown 08/30/2024 12:17 PM CONTINUOUS ABSORPTION PROCESS OPERATOR 08/30/2024 12:17 PM CONTINUOUS ABSORPTION PROCESS OPERATOR Michael Barlow MD LAB - CHEMISTRY CHARLI CREWS [facility]) [address] [place] [address] * PATHOLOGY TISSUE (08/25/2024 1:24 PM CONTINUOUS ABSORPTION PROCESS OPERATOR) Case Report Surgical Pathology Report Case: [id number] Authorizing Provider: Ricardo Jiménez MD Collected: 08/25/2024 01:24 PM Ordering Location: [facility] END[facility] Received: 08/25/2024 03:33 PM Pathologist: Adrienne Haynes MD Specimen: Polyp Ascending, ascending colon polyp x1 08/26/2024 9:36 AM CONTINUOUS ABSORPTION PROCESS OPERATOR [facility] Final Diagnosis Large intestine, ascending colon polyp x 1, biopsy (A): - Tubular adenoma 08/26/2024 9:36 AM CONTINUOUS ABSORPTION PROCESS OPERATOR [facility] Microscopic Description and Comment Microscopic examination substantiates the final diagnosis. 08/26/2024 9:36 AM [facility] Clinical History The patient is a 59-year-old woman who presents for high risk colon cancer surveillance (personal history of colonic polyps). Operative procedure/findings: Colonoscopy - 2 mm ascending colon polyp, resected and retrieved. 08/26/2024 9:36 AM [facility] Gross Description The requisition and specimen(s) are identified with the patient's name, Sylvia Griffin. Received in formalin, specimen A , is a single parker-pink tissue fragment 0.2 x 0.2 x 0.1 cm submitted in toto in cassette A1. IKD 08/26/2024 9:36 AM [facility] Pathologist Location at [facility] 08/26/2024 9:36 AM [facility] Disclaimer The performance characteristics of all immunohistochemical and indirect immunofluorescence stains (if any) cited in this report were determined by the Histopathology Laboratory of [facility]. Some of these tests were developed by our own laboratory and have not been cleared or approved by the US Food and Drug Administration. The FDA does not require this test to go through premarket FDA review. These tests are used for clinical purposes. They should not be regarded as investigational or for research. This laboratory is certified under the Clinical Laboratory Improvement Amendments (CLIA) as qualified to perform high complexity clinical laboratory testing. This case has been personally reviewed and interpreted by the attending (teaching) pathologist. 08/26/2024 9:36 AM [facility] Embedded Images 08/26/2024 9:36 AM [facility] Biopsy, NOS POLYP / Unknown 08/25/2024 1 :24 PM CONTINUOUS ABSORPTION PROCESS OPERATOR 08/25/2024 3:33 PM CONTINUOUS ABSORPTION PROCESS OPERATOR Comment:Pre-op diagnosis: Screen for colon cancer [Z12.11] Ricardo Jiménez MD LAB - PATHOLOGY/CYTO LOGY ORDERABLES [facility] [address] [phone] * ENDOSCOPY, COLON, SCREENING (08/25/2024 1:09 PM CONTINUOUS ABSORPTION PROCESS OPERATOR) Report Endoscopy POC Endoscopy Department Report _ Patient Name: Sylvia Griffin Procedure Date: 08/25/2024 1:09 PM Date of : 1965 Classification: Outpatient Gender: Female Ethnicity: or Race: Other _ Providers: Ricardo Dejesus MD: Procedure: Colonoscopy Indications: High risk colon cancer surveillance: Personal history of colonic polyps Medications: Propofol per Anesthesia, See the Anesthesia note for documentation of the administered medications Description of Procedure: After I obtained informed consent, the scope was passed under direct vision. Throughout the procedure, the patient's blood pressure, pulse, and oxygen saturations were monitored continuously. The Colonoscope was introduced through the anus and advanced to the cecum, identified by appendiceal orifice and ileocecal valve. The colonoscopy was performed without difficulty. The patient tolerated the procedure well. The quality of the bowel preparation was adequate. The ileocecal valve, appendiceal orifice, and rectum were photographed. Findings: Hemorrhoids were found on perianal exam. A 2 mm polyp was found in the ascending colon. The polyp was sessile. The polyp was removed with a jumbo cold forceps. Resection and retrieval were complete. Many medium-mouthed diverticula were found in the sigmoid colon. Copious quantities of liquid stool was found in the entire colon, interfering with visualization. Lavage of the area was performed using copious amounts of sterile water, resulting in clearance with good visualization. No additional abnormalities were found on retroflexion. Estimated Blood Loss: Estimated blood loss: none. Complications: No immediate complications. Impression: - Hemorrhoids found on perianal exam. - One 2 mm polyp in the ascending colon, removed with a jumbo cold forceps. Resected and retrieved. - Diverticulosis in the sigmoid colon. - Stool in the entire examined colon. Recommendation: - Patient has a contact number available for emergencies. The signs and symptoms of potential delayed complications were discussed with the patient. Return to normal activities tomorrow. Written discharge instructions were provided to the patient. - Discharge patient to home (ambulatory). - Resume previous diet. - Continue present medications. - Await pathology results. - Repeat colonoscopy in 5 years for surveillance. - Return to referring physician. - The findings and recommendations were discussed with the patient. Attending Participation: I personally performed the entire procedure. Procedure Code(s): --- Professional --- 27458, Colonoscopy, flexible; with biopsy, single or multiple Diagnosis Code(s): --- Professional --- Z86.010, Personal history of colonic polyps K64.9, Unspecified hemorrhoids D12.2, Benign neoplasm of ascending colon K57.30, Diverticulosis of large intestine without perforation or abscess without bleeding CPT copyright 2021 [employer]. All rights reserved. The codes documented in this report are preliminary and upon inspector motor vehicles review may be revised to meet current compliance requirements. Ricardo Jiménez, 08/25/2024 1:40:05 PM Note Initiated On: 08/25/2024 1:09 PM Number of Addenda: [id number] [place] [address] PROVATION 08/25/2024 1:09 PM CONTINUOUS ABSORPTION PROCESS OPERATOR Ricardo Jiménez MD GI PROCEDURE ORDERAB LES [facility] * (ABNORMAL) GLUCOSE - POINT OF CARE (08/25/2024 12:00 PM CONTINUOUS ABSORPTION PROCESS OPERATOR) Glucose WB/POC 189(H) 70 - 99 mg/dL 08/25/2024 1:05 PM CONTINUOUS ABSORPTION PROCESS OPERATOR [facility] Specimen Type Venous 08/25/2024 1:05 PM [facility] Blood BLOOD SPECIMEN / Unknown 08/25/2024 12:00 PM CONTINUOUS ABSORPTION PROCESS OPERATOR 08/25/2024 1:05 PM CONTINUOUS ABSORPTION PROCESS OPERATOR Ricardo Jiménez MD LAB - POINT OF CARE ORDERABLES [facility] [address] [place] [address], [facility] [phone] * (ABNORMAL) COMPREHENSIVE METABOLIC PANEL (10/13/2023 12:55 PM CONTINUOUS ABSORPTION PROCESS OPERATOR) BUN 28(H) 7 - 26 mg/dL 10/13/2023 1:57 PM [facility] Creatinine 0.93 0.56 - 0.96 mg/dL 10/13/2023 1:57 PM [facility] Sodium 133(L) 136 - 145 mmol/L 10/13/2023 1:57 PM [facility] Potassium 4.9(H) 3.5 - 4.5 mmol/L 10/13/2023 1:57 PM [facility] Chloride 99 98 - 107 mmol/L 10/13/2023 1:57 PM [facility] CO2 25 22 - 29 mmol/L 10/13/2023 1:57 PM [facility] Glucose 269(H) 70 - 115 mg/dL 10/13/2023 1:57 PM [facility] Calcium 9.3 8.4 - 10.2 mg/dL 10/13/2023 1:57 PM [facility] Protein Total 6.9 6.0 - 8.3 g/dL 10/13/2023 1:57 PM [facility] Albumin 4.0 3.4 - 5.0 g/dL 10/13/2023 1:57 PM [facility] Bilirubin Total 0.6 0.2 - 1.2 mg/dL 10/13/2023 1:57 PM [facility] Alkaline Phosphatase 81 40 - 150 U/L 10/13/2023 1:57 PM [facility] ALT 20 5 - 55 U/L 10/13/2023 1:57 PM [facility] AST 15 5 - 34 U/L 10/13/2023 1:57 PM [facility] Anion Gap 9 6 - 16 10/13/2023 1:57 PM [facility] BUN/Creatinine Ratio 30(H) 7 - 23 10/13/2023 1:57 PM [facility] Osmolality Calculated 291 275 - 295 mOsm/kg 10/13/2023 1:57 PM [facility] Albumin/Globulin Ratio 1.4 1.1 - 2.3 10/13/2023 1:57 PM [facility] eGFR by CKD-EPI 71(L) >=90 mL/min/1.7 3 m2 10/13/2023 1:57 PM [facility] Blood BLOOD SPECIMEN / Unknown Lab Venipuncture / Unknown 10/13/2023 12:55 PM CONTINUOUS ABSORPTION PROCESS OPERATOR 10/13/2023 1:23 PM CONTINUOUS ABSORPTION PROCESS OPERATOR Luiza Fernandez MD LAB - CHEMISTRY ORDE [facility] Performing Organization Address City/[facility]/ZIP Co de Phone Number [facility] [address] [place] [address], [facility] [phone] * HEMOGLOBIN A1C - POINT OF CARE (AMB) [facility] (10/13/2023 11:33 AM CONTINUOUS ABSORPTION PROCESS OPERATOR) Hemoglobin A1c POCT 10.1 % [address] BLOOD SPECIMEN / Unknown 10/13/2023 11:33 AM CONTINUOUS ABSORPTION PROCESS OPERATOR Luiza Fernandez MD LAB - POINT OF CARE ORDERABLES Performing Organization Address [facility]/ZIP Co de Phone Number [address] [facility] [place] [address], [facility] [phone] * MICROALB/CREAT RATIO URINE RANDOM PANEL (06/09/2023 12:44 PM CDT) Albumin Random Urine 35.5 Not Established ug/mL 06/09/2023 2:28 PM CDT [facility] Creatinine Urine >400.00 Not Established mg/dL 06/09/2023 2:28 PM CDT [facility] Urine Albumin/Creati nine Ratio <9 <30 mg/g 06/09/2023 2:28 PM CDT [facility] Urine URINE SPECIMEN OBTAINED BY CLEAN CATCH PROCEDURE / Unknown Collection / Unknown 06/09/2023 12:44 PM CDT 06/09/2023 1:42 PM CDT Luiza Fernandez MD LAB - URINE CHEMISTR Y ORDERABLES Performing Organization Address City/[facility] Co de Phone Number [facility] [address] [place] [address], [facility] [phone] * CT LUNG SCREEN LOW DOSE (09/24/2021 10:13 AM CONTINUOUS ABSORPTION PROCESS OPERATOR) Anatomical Region Laterality Modality Chest Computed Tomogra phy 09/24/2021 10:5 2 AM CONTINUOUS ABSORPTION PROCESS OPERATOR Impressions 09/24/2021 11:08 AM CONTINUOUS ABSORPTION PROCESS OPERATOR Impression: 1.5 mm pulmonary nodule in the right middle lobe, unchanged from 2016 and is considered benign. 2 mm nodule in the left upper lobe, unchanged from 02/20/2020. Lung-RADS: 2. Recommend continued annual screening with low-dose CT in 12 months. 2.Mild distal esophageal wall thickening, may represent reflux esophagitis, slightly decreased from 02/20/2020. Recommend endoscopic correlation if clinically indicated. LungRADS Categories: 1 - Negative (no nodules, or only benign calcified or fat-containing nodules) 2 - Benign Appearance or Behavior (nodules with very low likelihood of becoming a clinically active cancer due to size or lack of growth) 3 - Probably Benign (probably benign findings-short term follow up suggested; includes nodules with a low likelihood of becoming a clinically active cancer) 4A,4B,4X - Suspicious (category 3 or 4 nodules with findings for which additional diagnostic testing and/or tissue sampling is recommended) S - Other (clinically significant or potentially clinically significant findings (non-lung cancer) C - Prior Lung Cancer (modifier for patients with a prior diagnosis of lung cancer who return to screening) Report drafted by Emily Jansen (resident) I, Dr. [place] SENIOR M.D. have personally reviewed and interpreted this examination/study. This report was electronically signed by [place] SENIOR M.D. on 09/24/2021 11:08 AM . Narrative 09/24/2021 11:08 AM CONTINUOUS ABSORPTION PROCESS OPERATOR Procedure Information DATE: 09/24/2021 10:14 AM EXAMINATION: Computed tomography (CT) of the chest without contrast TECHNIQUE: CT of the chest was performed without contrast according to low-dose protocol. Clinical Information HISTORY: Z87.891: Ex-smoker COMPARISON: CT chest without contrast dated 02/20/2020. Findings Evaluation of visceral and vascular structures is degraded due to lack of intravenous contrast administration. Lines/Tubes: None. Lower neck and axillae: Normal. Mediastinum and [place]obe[place]: No enlarged lymph nodes are present. Heart and Pericardium: The cardiac chambers are normal in size. No pericardial fluid or thickening is present. Lung Parenchyma, Airways, and Pleural Spaces: There is redemonstration of right upper lobe linear atelectasis. There is an unchanged 5 mm pulmonary nodule in the medial right middle lobe (series 6, image 80). 2 mm nodule is noted in the left upper lobe (image 47, series 6), unchanged. No new suspicious pulmonary nodule. There is no pleural effusion or pneumothorax. Bones and Soft Tissue: The visible osseous structures are intact. Upper Abdomen: The gallbladder is surgically absent with cholecystectomy clips in place. Mild distal esophageal wall thickening is noted, slightly decreased compared to prior examination, may represent esophagitis. Visible upper abdominal viscera are unremarkable. Procedure Note Carmita Senior MD - 09/24/2021 Procedure Information DATE: 09/24/2021 10:14 AM EXAMINATION: Computed tomography (CT) of the chest without contrast TECHNIQUE: CT of the chest was performed without contrast according to low-dose protocol. Clinical Information HISTORY: Z87.891: Ex-smoker COMPARISON: CT chest without contrast dated 02/20/2020. Findings Evaluation of visceral and vascular structures is degraded due to lackof intravenous contrast administration. Lines/Tubes: None. Lower neck and axillae: Normal. Mediastinum and [place]: No enlarged lymph nodes are present. Heart and Pericardium: The cardiac chambers are normal in size. No pericardial fluid or thickening is present. Lung Parenchyma, Airways, and Pleural Spaces: There is redemonstration of right upper lobe linear atelectasis. Thereis an unchanged 5 mm pulmonary nodule in the medial right middle lobe(series 6, image 80). 2 mm nodule is noted in the left upper lobe (image 47, series 6), unchanged. No new suspicious pulmonary nodule. There is no pleural effusion or pneumothorax. Bones and Soft Tissue: The visible osseous structures are intact. Upper Abdomen: The gallbladder is surgically absent with cholecystectomy clips inplace. Mild distal esophageal wall thickening is noted, slightly decreased compared to prior examination, may represent esophagitis. Visible upper abdominal viscera are unremarkable. Impression: 1.5 mm pulmonary nodule in the right middle lobe, unchanged from 2016and is considered benign. 2 mm nodule in the left upper lobe, unchanged from 02/20/2020. Lung-RADS: 2. Recommend continued annual screening with low-dose CT in 12 months. 2.Mild distal esophageal wall thickening, may represent reflux esophagitis, slightly decreased from 02/20/2020. Recommend endoscopic correlation if clinically indicated. LungRADS Categories: 1 - Negative (no nodules, or only benign calcified or fat-containing nodules) 2 - Benign Appearance or Behavior (nodules with very low likelihood of becoming a clinically active cancer due to size or lack of growth) 3 - Probably Benign (probably benign findings-short term follow up suggested; includes nodules with a low likelihood of becoming aclinically active cancer) 4A,4B,4X - Suspicious (category 3 or 4 nodules with findings for which additional diagnostic testing and/or tissue sampling is recommended) S - Other (clinically significant or potentially clinically significant findings (non-lung cancer) C - Prior Lung Cancer (modifier for patients with a prior diagnosis of lung cancer who return to screening) Report drafted by Emily Jansen (resident) IDr. [place] M.D. have personally reviewed and interpretedthis examination/study. This report was electronically signed by [place] SENIOR M.D. on 09/24/2021 11:08 AM . Harshal Simpson MD CT ORDERABLES * HEPATITIS C ANTIBODY (04/24/2016 1:05 PM CDT) Hepatitis C Antibody Non-react [facility] Comment: Hepatitis C Antibody screen indicates no serologic evidence of past or current infection with Hepatitis C Virus. Patients with unexplained liver disease who are immunocompromised or suspected of having acute Hepatitis C infection may benefit from Nucleic Acid Test (ANNIA) for Hepatitis C Viral RNA to confirm Hepatitis C status. Blood specimen (specimen) BLOOD SPECIMEN / Unknown 04/24/2016 1:05 PM CDT 04/24/2016 1:09 PM CDT Latonia Hubbard MD LAB - CHEMISTRY CHARLI Vasquez Organization Address City/State/[facility] Co de Phone Number [facility] [address] [place], [place] [id number] [place] [address] from Last 3 Months or Most Recently Relevant to Health Maintenance Care Teams Vice President Of Talent Acquisition Relationship Specialty Start Date End Date Stella Sneed MD [address] [place] [phone] PCP - General Family Medicine 04/01/23 Luiza Fernandez MD [address] [place] [phone] Physician Endocrinology 03/12/23
--- OUTSIDE RECORDS SUMMARY | 2024-10-08 17:34 | XMS_ITS | Encounter Summary ---
Author Organization [facility] Health Address [address] [place] [address] Care Team Providers Care Tamale Maker Name Role Phone Luiza Fernandez MD Unavailable Stella Sneed MD Primary Care Provider Reason for Visit * Radiology Services (Routine) - Authorized Specialty Diagnoses / Procedures Referred By Contac t Referred To Contact CT Scan Diagnoses Pulmonary nodule Procedures CT Lung Screen Low Dose Michael Barlow MD [address] [facility] 2L DIV OF PULMONARY/[place] [address] [facility] [address] [place] [address] Referral ID Status Reason Start Date Expiration Date V isits Requested Visits Authorized [id number] Authorized 06/29/2024 06/29/2025 1 1 Encounter Details Date Type Department Care Team (Late st Contact Info) Description 10/06/2024 8:30 AM [facility] Hospital Encounter [facility] [address] [place] [address] Michael Barlow MD [address] [facility] 2L DIV OF PULMONARY/[place] [address] Social History Tobacco Use Types Packs/Day Years [...] Sex Assigned at Female 09/05/2021 1:34 PM [employer] Gender Identity Female 09/05/2021 1:34 PM [employer] Sexual Orientation Straight 09/05/2021 1: 34 PM [employer]ICER documented as of this encounter Functional Status Functional Status Response Date of Assess ment Is person deaf or have serious hearing difficult y? No 08/25/2024 Is person blind or have serious difficulty seein g? No 08/25/2024 Does person have serious dif ficulty walking/climbing stairs? No 08/25/2024 Does person have difficulty dressing/bathing? No 08/25/2024 Does person have difficulty doing errands alone? No 08/25/2024 Cognitive Status Response Date of Assessm ent Does person have difficulty concentrating/remembering/making decisions? No 08/25/2024 documented as of this encounter Plan of Treatment Upcoming Encounters Date Type Department Care Team (Late st Contact Info) Description 11/03/2024 4:00 PM CDT Office Visit [facility] - Pulmonology [address] [place] [phone] Luis Peter MD [address] [facility] PULMONARY DISEASE/[place] [address] 12/21/2024 2:20 PM CDT Office Visit [facility] - Endocrinology [address] [place] [address] [place] [phone] Joceline Reed MD [address] [place] [address] 12/29/2024 8:30 AM CDT Office Visit [facility] - GI [address] [place] [address], [place] [phone] 01/17/2025 1:00 PM CDT Office Visit [facility] - Neurology [address] [place] [address], [place] [phone] Yael Brock MD [address] [facility] [address]L [place] [phone] 2025 8:40 AM CDT Office Visit [facility] - Sleep Services [address] [place] [phone] Breanna Layton, [employer]COMPL[employer]ANCE CONSULTANT [address] [place] [address] 2L DIV OF PULMONARY/[place] [address] Scheduled Orders Name Type Priority Associated Diagnoses Orde r Schedule CT Lung Screen Low Dose Imaging Routine Pulmonary nodule 1 Occurrences starting 07/10/2024 until 07/10/2025 documented as of this encounter Goals Goal Patient Goal Type Associated Problems Recent Progress Patient-Stated? Author Medication Management General On track( 2:44 PM [employer]PLORATION OFFICER) Tammy Sanchez, RN Note: Expected end date: ongoing Interventions: Take all medications as prescribed Let your doctor know right away about any changes in your medications Make sure to request a refill of your medication at least one week prior to your last dose Safety General On track( 2:44 PM EVP CHIEF EXPLORATION OFFICER) Kylah Genao, RN Note: Expected end date: ongoing Interventions: Your nurse will assess your risk for falls/injury each visit Use appropriate and safe transfer methods Keep personal items within easy reach Use some light at night in your room Keep walking paths clutter free and clear documented as of this encounter Visit Diagnoses Not on filedocumented in this encounter Care Teams Tamale Maker Relationship Specialty Start Date End Date Stella Sneed MD [address] [place] [address] PCP - General Family Medicine 04/01/23 Luiza Fernandez MD [facility] [place] [address] Physician Endocrinology 03/12/23 documented as of this encounter
--- OUTSIDE RECORDS SUMMARY | 2024-10-08 17:34 | XMS_ITS | Patient Health Summary ---
Author Organization [facility] Address [address] [place] [address] Care Team Providers Care Paymaster Of Purses Name Role Phone Luiza Fernandez MD Unavailable Stella Sneed MD Primary Care Provider Note from [facility],non-owned Affiliates and Associated Physician Practices is amultiple site organization consisting of ambulatory clinics and hospital sitesin [place], [place] and [place]. This disclosure is being madepursuant to the Care Everywhere program and may not contain all information available regarding this patient. Last updated 18.[facility] Allergies No known active allergies* Perflutren Lipid Microsphere(Other),Inactive Medications * Be aware that medications may not be up to date on this document. Alwaysverify current medications with the patient. * fluticasone propionate (FLONASE) 50 MCG/ACT nasal spray(Started 11/07/2016) * cromolyn (CROLOM) 4 % ophthalmic solution(Started 04/16/2016) 1 (one) drop 4X/day * loratadine (CLARITIN) 10 MG tablet(Started 04/16/2016) Take 1 (one) tablet by mouth DAILY * traZODone (DESYREL) 100 MG tablet(Started 04/16/2016) Take 1 (one) tablet by mouth at bedtime * SUMAtriptan (IMITREX) 25 MG tablet(Started 01/19/2019) TK 1 T PO PRF POON * diphenoxylate-atropine (LOMOTIL) 2.5-0.025 MG tablet(Started 02/17/2019) Take 1 tablet by mouth 3 times daily Take three times per day with meals scheduled 3 refills remaining * citalopram (CELEXA) 40 MG tablet(Started 02/22/2019) TK ONE T PO QD. 2 refills left * QUEtiapine (SEROQUEL) 200 MG tablet(Started 03/02/2019) 50 mg * simethicone (GAS-X) 80 MG tablet(Started 10/06/2019) Take 1 tablet by mouth 4 times daily as needed for Gas Pain * montelukast (SINGULAIR) 10 MG tablet(Started 08/29/2020) Take 1 tablet by mouth once daily 2 refills by 08/29/2021 * ondansetron (ZOFRAN) 4 MG tablet(Started 06/28/2021) TAKE 1 TABLET BY MOUTH EVERY 8 HOURS NEEDED FOR NAUSEA 5 refills by 06/28/2022 * FeroSul 325 (65 Fe) MG tablet(Started 05/23/2022) TAKE ONE TABLET BY MOUTH DAILY AT THE SAME TIME WITH VITAMIN C CAPSULE 3 refills by 05/23/2023 * albuterol HFA (Proventil; Ventolin; Proair) 108 (90 Base) MCG/ACT inhaler (Started 07/10/2022) Inhale 2 (two) puffs by mouth every 4 hours as needed for Shortness of Breath, Wheezing or Cough 4 refills by 07/10/2023 * budesonide-formoterol (Symbicort) 80-4.5 MCG/ACT inhaler(Started 08/13/2022) Inhale 2 (two) puffs by mouth 2 times daily 5 refills by 08/13/2023 * Aspirin Low Dose 81 MG tablet(Started 08/22/2022) TAKE ONE TABLET BY MOUTH ONCE DAILY 2 refills by 08/22/2023 * blood glucose ([employer]CH ULTRA TEST STRIPS) test strip(Started 11/17/2022) Use 1 (one) strip 4 times daily - before meals & nightly 11 refills by 11/17/2023 * isosorbide mononitrate CR 24hr (Imdur) 120 MG tablet(Started 04/01/2023) Take 1 (one) tablet by mouth once daily 3 refills by 03/31/2024 * ascorbic acid (Vitamin C) 500 MG tablet(Started 07/09/2023) Take 1 (one) tablet by mouth once daily Take 1 tablet at the same time as your ferrous sulfate (iron tablet). 3 refills by 07/08/2024 * pioglitazone (Actos) 15 MG tablet(Started 07/15/2023) Take 1 (one) tablet by mouth once daily 11 refills by 07/14/2024 * omeprazole (PriLOSEC) 40 MG capsule(Started 08/19/2023) Take 1 (one) capsule by mouth daily before breakfast 11 refills by 08/18/2024 * nitroGLYCERIN (Nitrostat) 0.4 MG tablet(Started 09/09/2023) DISSOLVE 1 TABLET UNDER THE TONGUE EVERY 5 MINUTES NEEDED FOR CHEST PAINS. IF NO RELIEF AFTER 2 DOSES CALL 911. * dicyclomine (Bentyl) 10 MG capsule(Started 09/15/2023) TAKE ONE CAPSULE BY MOUTH FOUR TIMES A DAY NEEDED FOR ABDOMINAL PAIN 11 refills by 09/14/2024 * cyclobenzaprine (Flexeril) 10 MG tablet(Started 09/24/2023) Take 1 (one) tablet by mouth 3 times daily as needed FOR MUSCLE SPASM * TRUEplus 5-Bevel Pen [place] 32G X 4 MM [facility](Started 10/19/2023) USE TO INJECT SUBCUTANEOUSLY DAILY * prochlorperazine (Compazine) 10 MG tablet(Started 01/12/2024) Take 1 (one) tablet by mouth every 8 hours as needed for Nausea/Vomiting 1 refill by 01/11/2025 * famotidine (Pepcid) 40 MG tablet(Started 02/01/2024) Take 1 (one) tablet by mouth once daily 3 refills by 01/31/2025 * tiotropium (Spiriva Respimat) 2.5 MCG/ACT inhaler(Started 03/31/2024) Inhale 2 (two) puffs by mouth once daily 4 refills by 03/31/2025 * lisinopril (Prinivil; Zestril) 20 MG tablet(Started 04/28/2024) TAKE ONE TABLET BY MOUTH DAILY 3 refills by 04/28/2025 * atorvastatin (Lipitor) 80 MG tablet(Started 05/25/2024) TAKE ONE TABLET BY MOUTH DAILY 3 refills by 05/25/2025 * Lancets (ONETOUCH DELICA PLUS 33G EXTRA FINE LANCET)(Started 06/02/2024) USE 1 TO TEST FOUR TIMES A DAY BEFORE MEALS AND EVERY NIGHT 3 refills by 06/02/2025 * Alcohol Swabs(Started 06/03/2024) Use 1 Each 3 times daily 11 refills by 06/03/2025 * clonazePAM (KlonoPIN) 1 MG tablet(Started 06/07/2024) Take 1 (one) tablet by mouth as needed for Anxiety * Trulicity 1.5 MG/0.5ML injection(Started 06/20/2024) Inject 1.5 (one and one-half) mg subcutaneously every 7 days * vitamin D, ergocalciferol, (Drisdol) 1.25 MG (73276 UT) capsule(Started 07/25/2024) TAKE ONE CAPSULE BY MOUTH EVERY SEVEN DAYS 2 refills by 07/25/2025 * metoprolol tartrate IR (Lopressor) 100 MG tablet(Started 07/29/2024) TAKE 1 TABLET BY MOUTH TWICE A DAY 3 refills by 07/29/2025 * Lantus SoloStar pen(Started 08/16/2024) INJECT 10 UNITS UNDER THE SKIN ONCE DAILY. DISCARD THE CONTENTS OF A PEN AFTER 28 DAYS OF USE 3 refills by 08/16/2025 * glipiZIDE (Glucotrol) 5 MG tablet(Started 09/08/2024) TAKE 1 TABLET BY MOUTH TWICE A DAY BEFORE BREAKFAST AND SUPPER 5 refills by 09/08/2025 * copper gluconate (Copper Caps) 2 MG capsule(Started 09/01/2024) Take 1 (one) capsule by mouth once daily 4 refills by 09/01/2025 * gabapentin (Neurontin) 600 MG tablet(Started 09/16/2024) TAKE 1 (ONE) TABLET BY MOUTH THREE TIMES DAILY * empagliflozin (Jardiance) 25 MG tablet(Started 09/21/2024) TAKE ONE TABLET BY MOUTH DAILY 4 refills by 09/21/2025 * metFORMIN (Glucophage) 1000 MG tablet(Started 09/21/2024) TAKE 1 TABLET BY MOUTH TWICE A DAY WITH MORNING AND EVENING MEALS 2 refills by 09/21/2025 * B Complex Vitamins (vitamin B complex) tablet(Started 09/27/2024) Take 1 (one) tablet by mouth once daily 3 refills by 09/27/2025 Ended Medications* Lancet Devices (B-D LANCET DEVICE) MISC(Started 06/01/2019) (Discontinued) Use 1 Each 4 times daily - before meals & nightly 11 refills remaining * Insulin Syringe-Needle U-100 26G X 1/2 1 ML MISC(Started 02/06/2021) (Discontinued) Use 1 Each once daily As backup to insulin pump 3 refills by 02/06/2022 * Blood Glucose Monitoring Suppl (ONE TOUCH ULTRA 2) w/Device KIT(Started 03/05/2023)(Discontinued) Use 1 Each as directed * empagliflozin (Jardiance) 25 MG tablet(Started 07/07/2023)(Discontinued) Take 1 (one) tablet by mouth once daily 4 refills by 07/06/2024 * metFORMIN (Glucophage) 1000 MG tablet(Started 07/15/2023)(Discontinued) Take 1 (one) tablet by mouth 2 times daily with morning and evening meal 11 refills by 07/14/2024 * gabapentin (Neurontin) 600 MG tablet(Started 08/22/2024)(Discontinued) TAKE 1 (ONE) TABLET BY MOUTH THREE TIMES DAILY Active Problems Problem Noted Date Diagnosed Date ESTHELA (obstructive sleep apnea) 09/27/2024 Essential hypertension 04/14/2024 Diabetic polyneuropathy asso ciated with type 2 diabetes mellitus 09/01/2021 Iron deficiency 08/27/2021 Obesity (BMI 30.0-34.9) 05/08/2021 Bipolar 1 disorder 10/16/2020 Irritable bowel syndrome with diarrhea 0 Urinary incontinence in female 01/12/2020 Pancreatic insufficiency 08/12/2018 NAFLD (nonalcoholic fatty liver disease) 018 Cardiomyopathy 05/20/2017 Deviated nasal septum 05/20/2017 Renal cyst 05/20/2017 Gastroesophageal reflux disease without esophagi tis 05/20/2017 Hyperlipidemia 05/20/2017 Vitamin D deficiency 05/20/2017 Pulmonary nodule seen on imaging study 7 Type 2 diabetes mellitus, wi th long-term current use of insulin 05/20/2017 Polyneuropathy 05/20/2017 Central sleep apnea 04/24/2017 History of non-ST elevation myocardial infarctio n (NSTEMI) 02/18/2017 Chest pain due to myocardial ischemia 12/09/2016 Immunizations * Covid Moderna primary monovalent 12+ yr 0.5mL(Given 01/11/2022, 02/05/2021, 01/31/2021) * FLU VACCINE TRI IIV3 SPLIT PF IM (FLUVIRIN)(Given 05/27/2017) * INFLUENZA VACCINE, QUADR. (FLUZONE; FLULAVAL; FLUARIX; AFLURIA QUADRIVALENT; 6MO+), 0.5 ML (IIV4)(Given 06/01/2019) * PNEUMOCOCCAL PCV20 CONJ VAC IM(Given 03/31/2024) * iNFLUENZA VACCINE, RECOM-POON, QUADR. (FLUBLOCK QUADRIVALENT; 18Y+) (RIV4)(Given 08/01/2021, 06/06/2020) Social History Tobacco Use Types Packs/Day Years [...] Sex Assigned at Female 09/05/2021 1:34 PM SOILS ENGINEER Gender Identity Female 09/05/2021 1:34 PM SOILS ENGINEER Sexual Orientation Straight 09/05/2021 1: 34 PM SOILS ENGINEER Last Filed Vital Signs Vital Sign Reading Time Taken Comments Blood Pressure 113/81 09/27/2024 9:11 AM SOILS ENGINEER Pulse 69 09/27/2024 9:11 AM SOILS ENGINEER Temperature 36.7 C (98 F) 08/25/2024 1:42 PM SOILS ENGINEER Respiratory Rate 16 08/25/2024 2:05 PM SOILS ENGINEER Oxygen Saturation 98% 08/25/2024 2:05 PM SOILS ENGINEER Inhaled Oxygen Concentration - - Weight 84.8 kg (187 lb) 09/27/2024 9:11 AM SOILS ENGINEER Height 167.6 cm (5' 6 ) 09/27/2024 9:11 AM SOILS ENGINEER Body Mass Index 30.18 09/27/2024 9:11 AM SOILS ENGINEER Procedures * PROTEIN ELECTROPHORESIS URINE RANDOM PANEL(Performed 09/16/2024) * PROTEIN ELECTROPHORESIS URINE RANDOM(Performed 09/13/2024) Performed for Diabetic peripheral autonomic neuropathy (HCC) * EEG(Performed 09/13/2024) Performed for Diabetic peripheral autonomic neuropathy (HCC) * VITAMIN B12(Performed 08/30/2024) Performed for Diabetic peripheral autonomic neuropathy (HCC) * CBC W AUTO DIFFERENTIAL(Performed 08/30/2024) Performed for Moderate persistent asthma without complication (HCC) * IMMUNOSCORE IGE INTERP(Performed 08/30/2024) Performed for Moderate persistent asthma without complication (HCC) * COPPER BLOOD(Performed 08/30/2024) Performed for Diabetic peripheral autonomic neuropathy (HCC) * VITAMIN E(Performed 08/30/2024) Performed for Diabetic peripheral autonomic neuropathy (HCC) * VITAMIN B6(Performed 08/30/2024) Performed for Diabetic peripheral autonomic neuropathy (HCC) * IGE BLOOD(Performed 08/30/2024) Performed for Moderate persistent asthma without complication (HCC) * ALLERGEN RESPIRATORY PNL REGION 8 ([place])(Performed 08/30/2024) Performed for Moderate persistent asthma without complication (HCC) * PROTEIN ELECTROPHORESIS BLOOD(Performed 08/30/2024) Performed for Diabetic peripheral autonomic neuropathy (HCC) * PATHOLOGY TISSUE(Performed 08/25/2024) Performed for Screen for colon cancer * ENDOSCOPY, COLON, SCREENING(Performed 08/25/2024) * LA COLOREC CANC SCRN,SCOPY NOT HI RISK(Performed 08/25/2024) Performed for Screen for colon cancer * GLUCOSE - POINT OF CARE(Performed 08/25/2024) * FRACTIONAL EXHALED NITRIC OXIDE(Performed 07/07/2024) Performed for Moderate persistent asthma without complication (HCC) * PFT-LAB(Performed 07/07/2024) Performed for Moderate persistent asthma without complication (HCC) * LA ECG/REVIEW INTERPRET ONLY(Performed 06/30/2024) Performed for TIA (transient ischemic attack) * LA LIVER ELASTOGRAPHY(Performed 06/27/2024) Performed for Metabolic dysfunction-associated steatotic liver disease (MASLD) * CARDIAC PROCEDURE ORDER(Performed 06/22/2024) * LA POLYSOM 6/> YRS 4/> DEBBIE(Performed 06/03/2024) Performed for ESTHELA (obstructive sleep apnea), Weight loss, Excessive daytime sleepiness, Chronic fatigue, Nocturia more than twice per night, Malfunction of continuous positive airway pressure (CPAP) or bilevel positive airway pressure (BPAP) machine, initial encounter, Type 2 diabetes mellitus withhyperglycemia, with long-term current use of insulin (HCC), Restless legs syndrome (RLS), Chronic insomnia, Obesity (BMI 30.0-34.9) * ECHO COMPLETE(Performed 05/24/2024) Performed for Coronary artery disease of [place] heart with stable angina pectoris, unspecified vessel or lesion type (HCC), Sleep apnea in adult * CARDIAC PROCEDURE ORDER(Performed 05/24/2024) * TSH(Performed 10/13/2023) Performed for Diabetic polyneuropathy associated with type 2 diabetes mellitus (HCC) * COMPREHENSIVE METABOLIC PANEL(Performed 10/13/2023) Performed for Diabetic polyneuropathy associated with type 2 diabetes mellitus (HCC) * HEMOGLOBIN A1C - POINT OF CARE (AMB) [facility]U(Performed 10/13/2023) Performed for Diabetic polyneuropathy associated with type 2 diabetes mellitus (HCC) * IRON + TRANSFERRIN PANEL(Performed 07/07/2023) Performed for Iron deficiency * FERRITIN(Performed 07/07/2023) Performed for Iron deficiency * CELIAC DISEASE PROFILE W RFLX(Performed 07/07/2023) Performed for Diarrhea, unspecified type * MICROALB/CREAT RATIO URINE RANDOM PANEL(Performed 06/09/2023) Performed for Type 2 diabetes mellitus with hyperglycemia, with long-term current use of insulin (HCC) * IRON + TRANSFERRIN PANEL(Performed 06/09/2023) Performed for Iron deficiency * FERRITIN(Performed 06/09/2023) Performed for Iron deficiency * COMPREHENSIVE METABOLIC PANEL(Performed 06/09/2023) Performed for Type 2 diabetes mellitus with hyperglycemia, with long-term current use of insulin (HCC) * VITAMIN D 25-HYDROXY(Performed 06/09/2023) Performed for Vitamin D deficiency * LIPID PROFILE(Performed 06/09/2023) Performed for Stable angina pectoris * HEMOGLOBIN A1C - POINT OF CARE (AMB) [facility](Performed 06/09/2023) Performed for Type 2 diabetes mellitus with hyperglycemia, with long-term current use of insulin (HCC) * PATHOLOGY TISSUE(Performed 03/18/2023) Performed for Nausea and vomiting, unspecified vomiting type, NAFLD (nonalcoholic fatty liver disease), Gastroparesis * LA ED EGD FLEX TRANSORAL DX(Performed 03/18/2023) Performed for Nausea and vomiting, unspecified vomiting type, NAFLD (nonalcoholic fatty liver disease), Gastroparesis * EGD(Performed 03/18/2023) * GLUCOSE - POINT OF CARE(Performed 03/18/2023) * LA LIVER ELASTOGRAPHY(Performed 03/02/2023) Performed for NAFLD (nonalcoholic fatty liver disease) * LA LIVER ELASTOGRAPHY(Performed 07/21/2022) Performed for Elevated liver enzymes * MICROALB/CREAT RATIO URINE RANDOM PANEL(Performed 12/02/2021) Performed for Type 2 diabetes mellitus with hyperglycemia, with long-term current use of insulin (HCC) * CBC W/O DIFFERENTIAL(Performed 12/02/2021) Performed for ESTHELA (obstructive sleep apnea), Iron deficiency anemia, unspecified iron deficiency anemia type, Microcytosis, Excessive daytime sleepiness, Chronic fatigue, Restless legs syndrome (RLS) * IRON + TIBC + FERRITIN(Performed 12/02/2021) Performed for Iron deficiency anemia, unspecified iron deficiency anemia type, Microcytosis, Excessive daytime sleepiness, Chronic fatigue, Restless legs syndrome (RLS) * ECHO COMPLETE(Performed 11/14/2021) Performed for Coronary artery disease of [place] heart with stable angina pectoris, unspecified vessel or lesion type ([facility]) * HEMOGLOBIN A1C - POINT OF CARE (AMB) [facility](Performed 11/12/2021) Performed for Type 2 diabetes mellitus with hyperglycemia, with long-term current use of insulin (HCC) * PFT CARDIOPULMONARY EXERCISE TEST-CPET(Performed 11/07/2021) Performed for Moderate persistent asthma without complication ([facility]), Exertional shortness of breath * LIPASE BLOOD(Performed 10/15/2021) Performed for Diarrhea, unspecified type, Diffuse abdominal pain, Nausea and vomiting, intractability of vomiting not specified, unspecified vomiting type * COMPREHENSIVE METABOLIC PANEL(Performed 10/15/2021) Performed for Diarrhea, unspecified type, Diffuse abdominal pain, Nausea and vomiting, intractability of vomiting not specified, unspecified vomiting type * C DIFFICILE TOXIN/GDH W REFLX TO PCR(Performed 10/15/2021) Performed for Diarrhea, unspecified type, Diffuse abdominal pain, Nausea and vomiting, intractability of vomiting not specified, unspecified vomiting type * CULTURE STOOL PANEL(Performed 10/15/2021) Performed for Diarrhea, unspecified type, Diffuse abdominal pain, Nausea and vomiting, intractability of vomiting not specified, unspecified vomiting type * CULTURE URINE COMPREHENSIVE(Performed 10/15/2021) Performed for Dysuria * LA INSERT NON-INDWELLING BLADDER(Performed 10/15/2021) Performed for Dysuria * WET PREP - POINT OF CARE (AMB) [facility]U(Performed 10/15/2021) Performed for Acute vaginitis * URINALYSIS AUTO - POINT OF CARE (AMB) [facility](Performed 10/15/2021) Performed for Dysuria * COMPLETE PFT W/WO BRONCHODILATOR(Performed 09/24/2021) Performed for Dyspnea on exertion * CT LUNG SCREEN LOW DOSE(Performed 09/24/2021) Performed for Ex-smoker * BRONCHIAL CHALLENGE(Performed 08/01/2021) Performed for Moderate persistent asthma without complication (HCC), Lung nodule * HEMOGLOBIN A1C - POINT OF CARE (AMB) [facility](Performed 07/09/2021) Performed for Type 2 diabetes mellitus with other specified complication, with long-term current use of insulin (HCC) * LA POLYSOM 6/>YRS CPAP 4/> PARM(Performed 06/19/2021) Performed for ESTHELA (obstructive sleep apnea) * FOLATE(Performed 05/14/2021) Performed for Neuropathy * VITAMIN D 25-HYDROXY(Performed 05/14/2021) Performed for Neuropathy, Microcytosis, Obesity (BMI 30-39.9) * IRON + TIBC + FERRITIN(Performed 05/14/2021) Performed for Neuropathy, Microcytosis * MRI BRAIN WO CONTRAST(Performed 03/22/2021) Performed for Memory loss * LA INSERT NON-INDWELLING BLADDER(Performed 02/15/2021) Performed for Urge incontinence, Frequency of micturition, Nocturia * CULTURE URINE COMPREHENSIVE(Performed 02/15/2021) Performed for Urge incontinence, Frequency of micturition, Nocturia * URINALYSIS AUTO - POINT OF CARE (AMB) [facility](Performed 02/15/2021) Performed for Urge incontinence, Frequency of micturition, Nocturia * HEMOGLOBIN A1C - POINT OF CARE (AMB) [facility](Performed 01/08/2021) Performed for Type 2 diabetes mellitus with other specified complication, with long-term current use of insulin ([facility]) * CARDIAC EKG ORDER(Performed 11/16/2020) * NM MYOCARD PERF REST STRESS(Performed 11/08/2020) Performed for Coronary artery disease of [place] heart with stable angina pectoris, unspecified vessel or lesion type ([facility]) * HEMOGLOBIN A1C - POINT OF CARE (AMB) [facility](Performed 10/16/2020) Performed for Type 2 diabetes mellitus with hyperglycemia, with long-term current use of insulin ([facility]) * MICROALB/CREAT RATIO URINE RANDOM PANEL(Performed 07/04/2020) Performed for Type 2 diabetes mellitus with other specified complication, with long-term current use of insulin ([facility]) * IMMUNOSCORE IGE INTERP(Performed 07/04/2020) Performed for Severe persistent asthma without complication ([facility]) * CBC W AUTO DIFFERENTIAL(Performed 07/04/2020) Performed for Type 2 diabetes mellitus with other specified complication, with long-term current use of insulin ([facility]) * VITAMIN B12(Performed 07/04/2020) Performed for Type 2 diabetes mellitus with other specified complication, with long-term current use of insulin ([facility]) * TSH(Performed 07/04/2020) Performed for Type 2 diabetes mellitus with other specified complication, with long-term current use of insulin ([facility]) * HDL CHOLESTEROL(Performed 07/04/2020) Performed for Type 2 diabetes mellitus with other specified complication, with long-term current use of insulin ([facility]) * CHOLESTEROL BLOOD(Performed 07/04/2020) Performed for Type 2 diabetes mellitus with other specified complication, with long-term current use of insulin ([facility]) * COMPREHENSIVE METABOLIC PANEL(Performed 07/04/2020) Performed for Type 2 diabetes mellitus with other specified complication, with long-term current use of insulin ([facility]) * ALLERGEN RESPIRATORY PNL REGION 8 ([place])(Performed 07/04/2020) Performed for Severe persistent asthma without complication (HCC) * HEMOGLOBIN A1C - POINT OF CARE (AMB) [facility](Performed 07/04/2020) Performed for Type 2 diabetes mellitus with other specified complication, with long-term current use of insulin (HCC) * CT CHEST WO CONTRAST(Performed 02/20/2020) Performed for Lung nodule * COMPLETE PFT W/WO BRONCHODILATOR(Performed 02/20/2020) Performed for Moderate persistent asthma without complication (HCC) * CARDIAC EKG ORDER(Performed 10/13/2019) * PROC EKG IN CLINIC(Performed 10/10/2019) Performed for Old myocardial infarction, Cardiomyopathy, unspecified type (HCC), Uncomplicated asthma, unspecified asthma severity, unspecified whether persistent (HCC), Chest pain, unspecified type * HEMOGLOBIN A1C(Performed 08/20/2019) Performed for Type 2 diabetes mellitus with hyperglycemia, with long-term current use of insulin (HCC) * CHLORIDE FECES(Performed 04/28/2019) Performed for Sleep-related bruxism * SODIUM FECES(Performed 04/28/2019) Performed for Sleep-related bruxism * NM GASTRIC EMPTYING(Performed 04/28/2019) Performed for Epigastric pain, Nausea and vomiting, intractability of vomiting not specified, unspecified vomiting type * PT-INR [facility](Performed 08/12/2018) Performed for Pancreatic insufficiency (HCC) * VITAMIN D 25-HYDROXY(Performed 08/12/2018) Performed for Pancreatic insufficiency (HCC) * VITAMIN E(Performed 08/12/2018) Performed for Pancreatic insufficiency (HCC) * VITAMIN A(Performed 08/12/2018) Performed for Pancreatic insufficiency (HCC) * CBC W AUTO DIFFERENTIAL(Performed 08/12/2018) Performed for Pancreatic insufficiency (HCC) * HEMOGLOBIN A1C - POINT OF CARE (AMB) [facility](Performed 05/20/2017) * ECHO 2D ONLY WO COLOR OR DOPPLER(Performed 02/20/2017) * EKG 12-LEAD(Performed 02/06/2017) * PATHOLOGY TISSUE(Performed 12/22/2016) * GLUCOSE ACCUCHECK(Performed 12/22/2016) * HEMOGLOBIN A1C - POINT OF CARE (AMB) [facility]U(Performed 12/09/2016) * GLUCOSE - POINT OF CARE (AMB) [facility]U(Performed 12/09/2016) * GLUCOSE - POINT OF CARE (AMB) [facility](Performed 12/09/2016) * HEMOGLOBIN A1C - POINT OF CARE (AMB) [facility](Performed 08/13/2016) * GLUCOSE ACCUCHECK(Performed 08/01/2016) * CULTURE DUODENAL ASPIRATE QUANT(Performed 08/01/2016) * PATHOLOGY TISSUE(Performed 08/01/2016) * GLUCOSE ACCUCHECK(Performed 08/01/2016) * ACTH 60 MINUTES(Performed 05/30/2016) * ACTH 30 MINUTES(Performed 05/30/2016) * ACTH(Performed 05/30/2016) * ACTH CORTISOL BASELINE(Performed 05/30/2016) * CT ABDOMEN PELVIS W CONTRAST(Performed 05/06/2016) * DRUG ABUSE PANEL 10-20+ETHANOL URINE NO CONFIRM(Performed 05/06/2016) * URINALYSIS REFLEX TO MICROSCOPIC NO CULTURE(Performed 05/06/2016) * LIPASE BLOOD(Performed 05/06/2016) * COMPREHENSIVE METABOLIC PANEL(Performed 05/06/2016) * CBC W AUTO DIFFERENTIAL(Performed 05/06/2016) * CBC W AUTO DIFFERENTIAL(Performed 05/06/2016) * VITAMIN D 25-HYDROXY(Performed 04/25/2016) * MICROALB/CREAT RATIO URINE RANDOM PANEL(Performed 04/25/2016) * COMPREHENSIVE METABOLIC PANEL(Performed 04/25/2016) * HEMOGLOBIN A1C(Performed 04/25/2016) * VITAMIN B12(Performed 04/25/2016) * TSH(Performed 04/25/2016) * ACTH(Performed 04/25/2016) * LAB HISTORICAL RESULTS-ONBASE(Performed 04/25/2016) * LAB HISTORICAL RESULTS-ONBASE(Performed 04/25/2016) * TISSUE TRANSGLUTAMINASE AB IGA(Performed 04/24/2016) * ERYTHROCYTE SEDIMENTATION RATE(Performed 04/24/2016) * HEPATITIS C ANTIBODY(Performed 04/24/2016) * LIPASE BLOOD(Performed 04/24/2016) * IGA BLOOD(Performed 04/24/2016) * C-REACTIVE PROTEIN(Performed 04/24/2016) * PT-INR [facility](Performed 04/24/2016) * CBC W AUTO DIFFERENTIAL(Performed 04/24/2016) * CBC W AUTO DIFFERENTIAL(Performed 04/24/2016) * CALPROTECTIN FECAL(Performed 04/24/2016) * PANCREATIC ELASTASE FECES(Performed 04/24/2016) * FAT QUALITATIVE FECES RANDOM(Performed 04/24/2016) * CULTURE STOOL+ E COLI SHIGA-LIKE TOXIN(Performed 04/24/2016) * C DIFFICILE [facility] + TOXIN A+B(Performed 04/24/2016) Results * (ABNORMAL) PROTEIN ELECTROPHORESIS URINE RANDOM PANEL (09/16/2024 12:05 PM SOILS ENGINEER) Creatinine Urine 33 20 - 275 mg/dL [...] % [facility] Alpha-1 Globulin 0 % [facility] Hamfa-4-Jghkwzml 0 % [facility] Beta-Globulin 0 % [facility] [...] ordered. REPORT COMMENT: FASTING:YES Test Performed at: [employer] [facility] [address] [place] [address] GRETEL ZACARIAS MD 09/16/2024 12:0 5 PM SOILS ENGINEER 09/16/2024 12:06 PM SOILS ENGINEER Yael Brock MD LAB - URINE CHEMISTR Y ORDERABLES [facility] [address] [place] [address] * PROTEIN ELECTROPHORESIS URINE RANDOM (09/13/2024 10:36 AM SOILS ENGINEER) Pathologist [facility] Interpretation Urine PE See Comment Normal Pattern 09/15/2024 2:59 PM SOILS ENGINEER [facility] Comment: Urine protein electrophoresis shows a band corresponding to albumin with small amounts of other nonspecific proteinuria. No monoclonal immunoglobulins detected. Felipa Myles PhD, [facility] Clinical Radio Electronics Technician rn midwife Protein Urine <7 Not Established mg/dL 09/15/2024 2:59 PM SOILS ENGINEER [facility] Urine URINE SPECIMEN OBTAINED BY CLEAN CATCH PROCEDURE / Unknown Collection / Unknown 09/13/2024 10:36 AM SOILS ENGINEER 09/13/2024 11:22 AM SOILS ENGINEER Yael Brock MD LAB - URINE CHEMISTR Y ORDERABLES [facility] [address] [place] [address], [facility] [phone] * EEG (09/13/2024 8:49 AM SOILS ENGINEER) Narrative Aj Hagan MD - 09/13/2024 8:49 AM SOILS ENGINEER Aj Hagan MD 09/13/2024 11:34 AM EEG REPORT Patient Name: Sylvia Chatterjee EEG#: [id number] Start Time: 09:15 AM 09/13/2024 Stop Time: 09:45 AM 09/13/2024 Clinical History: Sylvia Chatterjee is a 59 year old female with [...] ONE TABLET BY MOUTH DAILY blood glucose ([facility] Judgment RecoveryTOUCH ULTRA TEST STRIPS) test strip Use 1 [...] (one) tablet by mouth TRUEplus 5-Bevel Pen [place] 32G X 4 MM [facility] USE TO INJECT SUBCUTANEOUSLY DAILY Trulicity 1.5 MG/0.5ML injection Inject 1.5 (one and one-half) mg subcutaneously every 7 days vitamin D, ergocalciferol, (Drisdol) 1.25 MG (05721 UT) capsule TAKE ONE CAPSULE BY MOUTH [...] (ABNORMAL) CBC W/ DIFFERENTIAL (08/30/2024 12:26 PM [facility]) Only the most recent of7 resultswithin the time period is included. WBC 9.5 4.0 - 10.7 x10E9/L 08/30/2024 12:45 PM [facility] RBC Count 5.09 3.90 - 5.20 x10E12/L 08/30/2024 12:45 PM [facility] Hemoglobin 12.6 11.9 - 15.8 g/dL 08/30/2024 12:45 PM [facility] Hematocrit 39.3 34.8 - 46.1 % 08/30/2024 12:45 PM [facility] MCV 77.2(L) 80.0 - 98.0 fL 08/30/2024 12:45 PM [facility] MCH 24.8(L) 26.7 - 33.6 pg 08/30/2024 12:45 PM [facility] MCHC 32.1 31.7 - 36.3 g/dL 08/30/2024 12:45 PM [facility] RDW-CV 14.5 11.3 - 14.8 % 08/30/2024 12:45 PM [facility] Platelet Count 224 150 - 420 x10E9/L 08/30/2024 12:45 PM [facility] MPV 11.7(H) 7.8 - 11.4 fL 08/30/2024 12:45 PM [facility] Neutrophil % 69.7 41.0 - 74.0 % 08/30/2024 12:45 PM [facility] Lymphocyte % 17.1 17.0 - 47.0 % 08/30/2024 12:45 PM [facility] Monocyte % 7.3 3.0 - 11.0 % 08/30/2024 12:45 PM [facility] Eosinophil % 4.8 0.0 - 7.0 % 08/30/2024 12:45 PM [facility] Basophil % 0.8 0.0 - 1.6 % 08/30/2024 12:45 PM [facility] Immature Granulocytes % 0.3 0.0 - 1.0 % 08/30/2024 12:45 PM SOILS ENGINEER [facility] Neutrophil Absolute 6.60 1.60 - 7.50 x10E9/L 08/30/2024 12:45 PM [facility] Lymphocyte Absolute 1.62 1.00 - 4.40 x10E9/L 08/30/2024 12:45 PM [facility] Monocyte Absolute 0.69 0.15 - 1.00 x10E9/L 08/30/2024 12:45 PM [facility] Eosinophil Absolute 0.45 0.00 - 0.60 x10E9/L 08/30/2024 12:45 PM [facility] Basophil Absolute 0.08 0.00 - 0.13 x10E9/L 08/30/2024 12:45 PM [facility] Blood BLOOD SPECIMEN / Unknown Lab Venipuncture / Unknown 08/30/2024 12:26 PM SOILS ENGINEER 08/30/2024 12:27 PM SOILS ENGINEER Michael Barlow MD LAB - HEMATOLOGY ORD LILA [address] [address], [facility] [phone] * VITAMIN B12 (08/30/2024 12:26 PM SOILS ENGINEER) Only the most recent of3 resultswithin the time period is included. Vitamin B12 491 213 - 816 pg/mL 08/30/2024 1:30 PM SOILS ENGINEER [facility] Blood BLOOD SPECIMEN / Unknown Lab Venipuncture / Unknown 08/30/2024 12:26 PM SOILS ENGINEER 08/30/2024 12:27 PM SOILS ENGINEER Yael Brock MD LAB - CHEMISTRY ORDJaden CREWS [address] [address], [place] [phone] * IMMUNOSCORE IGE INTERP (08/30/2024 12:17 PM SOILS ENGINEER) Only the most recent of2 resultswithin the time period is included. Immunocap Score See Note 5 3:58 PM SOILS ENGINEER [facility] ([facility]) Comment: REFERENCE INTERVAL: Allergen, Interpretation Less than [...] clinical allergy or even anaphylaxis. Performed By: [facility] [address] [place] [address] Dump Truck Operator: Benjamin Barnett MD, PhD CLIA Number: [id number] Blood BLOOD SPECIMEN / Unknown Lab Venipuncture / Unknown 08/30/2024 12:17 PM SOILS ENGINEER 08/30/2024 12:17 PM SOILS ENGINEER Michael Barlow MD LAB - SEROLOGY ORDER RUDY [facility] ([facility]) [address] [place] [address], [facility] * VITAMIN E (08/30/2024 12:17 PM SOILS ENGINEER) Only the most recent of2 resultswithin the time period is included. Vitamin E Alpha Tocopherol 7.9 5.5 - 18.0 mg/L 09/02/2024 3:57 PM SOILS ENGINEER [facility] ([facility]) Comment: This test was developed and its performance characteristics determined by [facility]. It has not been cleared or approved by the US Food and Drug Administration. This test was performed in a CLIA certified laboratory and is intended for clinical purposes. Vitamin E Gamma Tocopherol 1.4 0.0 - 6.0 mg/L 09/02/2024 3:57 PM SOILS ENGINEER [facility] ([facility]) Comment: Performed By: [facility] [address] [place] [address] Dump Truck Operator: Benjamin Barnett MD, PhD CLIA Number: [id number] Blood BLOOD SPECIMEN / Unknown Lab Venipuncture / Unknown 08/30/2024 12:17 PM SOILS ENGINEER 08/30/2024 12:17 PM SOILS ENGINEER Yael Brock MD LAB - CHEMISTRY ORDE ELEONORA [facility] Organization Address City/State/ZIP Co de Phone Number [facility]) [address] [place] [address] * (ABNORMAL) VITAMIN B6 (08/30/2024 12:17 PM SOILS ENGINEER) Pathologist [facility] Vitamin B6 18.9(L) 20.0 - 125.0 nmol/L 09/02/2024 6:31 AM SOILS ENGINEER [facility] ([facility]) Comment: INTERPRETIVE INFORMATION: Vitamin B6 (Pyridoxal 5-Phosphate) Pyridoxal 5'-phosphate measured in a specimen collected following an 8-hour or overnight fast accurately indicates vitamin B6 nutritional status. Non-fasting specimen concentration reflects recent vitamin intake. This test was developed and its performance characteristics determined by [facility]. It has not been cleared or approved by the US Food and Drug Administration. This test was performed in a CLIA certified laboratory and is intended for clinical purposes. Performed By: [facility] [employer] [address] [place] [address] Dump Truck Operator: Benjamin Barnett MD, PhD CLIA Number: [id number] Blood BLOOD SPECIMEN / Unknown Lab Venipuncture / Unknown 08/30/2024 12:17 PM SOILS ENGINEER 08/30/2024 12:17 PM SOILS ENGINEER Yael Brock MD LAB - CHEMISTRY CHARLI [facility]WS [facility]) [address] [place] [address], [facility] * (ABNORMAL) ALLERGEN RESPIRATORY [facility] REGION 8 ([place] (08/30/2024 12:17 PM SOILS ENGINEER) Only the most recent of2 resultswithin the time period is included. IgE Total 102 <=214 kU/L 09/01/2024 3:56 PM SOILS ENGINEER [facility] ([facility]) Comment: REFERENCE INTERVAL: Immunoglobulin E, Serum Access complete set of age- and/or gender-specific reference intervals for this test in the [facility] Test Directory ([facility]). Allergen Bowen Elder <0.10 <=0.34 kU/L 09/01/2024 3:56 PM SOILS ENGINEER [facility] ([facility]) Allergen Alternaria alternata <0.10 <=0.34 kU/L 09/01/2024 3:56 PM SOILS ENGINEER [facility] ([facility]) Allergen Powhatan Maple 0.11 <=0.34 kU/L 09/01/2024 3:56 PM SOILS ENGINEER [facility]) Allergen Cat Dander <0.10 <=0.34 kU/L 09/01/2024 3:56 PM SOILS ENGINEER [facility] ([facility]) Allergen Mountain Chouteau <0.10 <=0.34 kU/L 09/01/2024 3:56 PM SOILS ENGINEER [facility] ([facility]) Allergen [place] Tree 0.25 <=0.34 kU/L 09/01/2024 3:56 PM SOILS ENGINEER [facility] ([facility]) Allergen Rough Pigweed 0.22 <=0.34 kU/L 09/01/2024 3:56 PM SOILS ENGINEER [facility] ([facility]) Allergen Swiss Thistle 0.40(H) <=0.34 kU/L 09/01/2024 3:56 PM SOILS ENGINEER [facility] ([facility]) Allergen Ricardo Grass 0.81(H) <=0.34 kU/L 09/01/2024 3:56 PM SOILS ENGINEER [facility] ([facility]) Allergen Hormodendrum <0.10 <=0.34 kU/L 09/01/2024 3:56 PM SOILS ENGINEER [facility] ([facility]) Allergen Elm 0.24 <=0.34 kU/L 09/01/2024 3:56 PM SOILS ENGINEER [facility] ([facility]) Allergen [place] <0.10 <=0.34 kU/L 09/01/2024 3:56 PM SOILS ENGINEER [facility] ([facility]) Allergen A fumigatus IgE <0.10 <=0.34 kU/L 09/01/2024 3:56 PM SOILS ENGINEER [facility] ([facility]) Allergen Dermatophagoides pteronyssinus <0.10 <=0.34 kU/L 09/01/2024 3:56 PM SOILS ENGINEER [facility] ([facility]) Allergen Dermatophagoides farinae <0.10 <=0.34 kU/L 09/01/2024 3:56 PM SOILS ENGINEER [facility] ([facility]) Allergen Bermuda Grass <0.10 <=0.34 kU/L 09/01/2024 3:56 PM SOILS ENGINEER [facility] ([facility]) Allergen White Darrion 0.35(H) <=0.34 kU/L 09/01/2024 3:56 PM SOILS ENGINEER [facility] ([facility]) Allergen P. Notatum <0.10 <=0.34 kU/L 09/01/2024 3:56 PM SOILS ENGINEER [facility] ([facility]) Allergen Common Ragweed <0.10 <=0.34 kU/L 09/01/2024 3:56 PM SOILS ENGINEER [facility] ([facility]) Allergen Cockroach Slovenian <0.10 <=0.34 kU/L 09/01/2024 3:56 PM SOILS ENGINEER [facility] ([facility]) Allergen Craigmont Tree <0.10 <=0.34 kU/L 09/01/2024 3:56 PM SOILS ENGINEER [facility] ([facility]) Allergen Moodus Tree <0.10 <=0.34 kU/L 09/01/2024 3:56 PM SOILS ENGINEER [facility] ([facility]) Allergen Pecan Tree <0.10 <=0.34 kU/L 09/01/2024 3:56 PM SOILS ENGINEER [facility] ([facility]) Allergen Mouse Epithelium IgE <0.10 <=0.34 kU/L 09/01/2024 3:56 PM SOILS ENGINEER [facility] ([facility]) Allergen Mucor racemosus <0.10 <=0.34 kU/L 09/01/2024 3:56 PM SOILS ENGINEER [facility] ([facility]) Allergen White [place] Tree IgE <0.10 <=0.34 kU/L 09/01/2024 3:56 PM SOILS ENGINEER [facility] ([facility]) Allergen Dog Dander <0.10 <=0.34 kU/L 09/01/2024 3:56 PM SOILS ENGINEER [facility] ([facility]) Comment: Performed By: [facility] [employer] [address] [place] [address] Dump Truck Operator: Benjamin Barnett MD, PhD CLIA Number: [id number] Blood BLOOD SPECIMEN / Unknown Lab Venipuncture / Unknown 08/30/2024 12:17 PM SOILS ENGINEER 08/30/2024 12:17 PM SOILS ENGINEER Michael Barlow MD LAB - CHEMISTRY CHARLI CREWS [facility] Organization Address City/State/ZIP Co de Phone Number [facility]) [address] [place] [address], [facility] * (ABNORMAL) COPPER BLOOD (08/30/2024 12:17 PM SOILS ENGINEER) Copper 72.8(L) 80.0 - 155.0 ug/dL 09/01/2024 7:31 AM SOILS ENGINEER [facility] ([facility]) Comment: INTERPRETIVE INFORMATION: Copper, Serum or Plasma [...] developed and its performance characteristics determined by [facility]. It has not been cleared or approved by the US Food and Drug Administration. This test was performed in a CLIA certified laboratory and is intended for clinical purposes. Performed By: [facility] [address] [place] [address] Dump Truck Operator: Benjamin Barnett MD, PhD CLIA Number: [id number] Blood BLOOD SPECIMEN / Unknown Lab Venipuncture / Unknown 08/30/2024 12:17 PM SOILS ENGINEER 08/30/2024 12:17 PM SOILS ENGINEER Yael Brock MD LAB - CHEMISTRY ORDE ELEONORA [facility] ([facility]) [address] [place] [address], [facility] * PROTEIN ELECTROPHORESIS BLOOD (08/30/2024 12:17 PM SOILS ENGINEER) Interpretation Serum PE Normal Pattern Normal Pattern 09/01/2024 4:15 PM [facility] Comment: Serum capillary electrophoresis shows characteristic bands corresponding to albumin, alpha and beta globulins and polyclonal immunoglobulins. No monoclonal immunoglobulin detected. Non-secretory myeloma (NSM) and light chain only myeloma cannot be excluded based on this result. Recommend serum free light chain measurements for complete evaluation of plasma cell disorders. Felipa Myles PhD, [facility] Clinical Radio Electronics Technician rn midwife *The electrophoresis pattern and the interpretation have been reviewed and verified by the teaching physician. Protein Total 6.5 6.0 - 8.3 g/dL 09/01/2024 4:15 PM [facility] Albumin 3.9 3.3 - 5.6 g/dL 09/01/2024 4:15 PM [facility] Alpha-1 Globulins 0.2 0.2 - 0.4 g/dL 09/01/2024 4:15 PM [facility] Alpha-2 Globulins 0.7 0.5 - 1.0 g/dL 09/01/2024 4:15 PM [facility] Beta Globulins 0.7 0.6 - 1.1 g/dL 09/01/2024 4:15 PM [facility] Gamma Globulins 0.9 0.6 - 1.6 g/dL 09/01/2024 4:15 PM SOILS ENGINEER [facility] Blood BLOOD SPECIMEN / Unknown Lab Venipuncture / Unknown 08/30/2024 12:17 PM SOILS ENGINEER 08/30/2024 12:17 PM SOILS ENGINEER Yael Brock MD LAB - CHEMISTRY CHARLI CREWS [facility] [place] [address] [place] [address], [place] [phone] * IGE BLOOD (08/30/2024 12:17 PM SOILS ENGINEER) IgE Total 113 <=214 kU/L 09/01/2024 5:23 AM SOILS ENGINEER [facility] ([facility]) Comment: REFERENCE INTERVAL: Immunoglobulin E, Serum Access complete set of age- and/or gender-specific reference intervals for this test in the [facility] Test Directory ([facility]). Performed By: [facility] [address] [place] [address] Dump Truck Operator: Benjamin Barnett MD, PhD CLIA Number: [id number] Blood BLOOD SPECIMEN / Unknown Lab Venipuncture / Unknown 08/30/2024 12:17 PM SOILS ENGINEER 08/30/2024 12:17 PM SOILS ENGINEER Michael Barlow MD LAB - CHEMISTRY CHARLI CREWS [facility]) [address] [place] [address] * PATHOLOGY TISSUE (08/25/2024 1:24 PM SOILS ENGINEER) Only the most recent of4 resultswithin the time period is included. Case Report Surgical Pathology Report Case: [id number] Authorizing Provider: Ricardo Jiménez MD Collected: 08/25/2024 01:24 PM Ordering Location: [facility] Received: 08/25/2024 03:33 PM Pathologist: Adrienne Haynes MD Specimen: Polyp Ascending, ascending colon polyp x1 08/26/2024 9:36 AM SOILS ENGINEER [facility] Final Diagnosis Large intestine, ascending colon polyp x 1, biopsy (A): - Tubular adenoma 08/26/2024 9:36 AM SOILS ENGINEER [facility] Microscopic Description and Comment Microscopic examination substantiates the final diagnosis. 08/26/2024 9:36 AM [facility] Clinical History The patient is a 59-year-old woman who presents for high risk colon cancer surveillance (personal history of colonic polyps). Operative procedure/findings: Colonoscopy - 2 mm ascending colon polyp, resected and retrieved. 08/26/2024 9:36 AM [facility] Gross Description The requisition and specimen(s) are identified with the patient's name, Sylvia Chatterjee. Received in formalin, specimen A , is a single parker-pink tissue fragment 0.2 x 0.2 x 0.1 cm submitted in toto in cassette A1. IKD 08/26/2024 9:36 AM [facility] Pathologist Location at [facility] 08/26/2024 9:36 AM [facility] Disclaimer The performance characteristics of all immunohistochemical and indirect immunofluorescence stains (if any) cited in this report were determined by the Histopathology Laboratory of [facility]. Some of these tests were [...] the attending (teaching) pathologist. 08/26/2024 9:36 AM [facility] Embedded Images 08/26/2024 9:36 AM [facility] Biopsy, NOS POLYP / Unknown 08/25/2024 1 :24 PM SOILS ENGINEER 08/25/2024 3:33 PM SOILS ENGINEER Comment:Pre-op diagnosis: Screen for colon cancer [Z12.11] Ricardo Jiménez MD LAB - PATHOLOGY/CYTO LOGY ORDERABLES [facility] [address] [place], [place] [id number] [place] [address] * ENDOSCOPY, COLON, SCREENING (08/25/2024 1:09 PM SOILS ENGINEER) Report Endoscopy POC Endoscopy Department Report _ Patient Name: Sylvia Chatterjee Procedure Date: 08/25/2024 1:09 PM Date of [...] entire procedure. Procedure Code(s): --- Professional --- 90353, Colonoscopy, flexible; with biopsy, single or multiple Diagnosis Code(s): --- Professional --- Z86.010, Personal history of colonic polyps K64.9, Unspecified hemorrhoids D12.2, Benign neoplasm of ascending colon K57.30, Diverticulosis of large intestine without perforation or abscess without bleeding CPT copyright 2021 [employer]. All rights reserved. The codes documented in this report are preliminary and upon side seam machine operator review may be revised to meet current compliance requirements. Ricardo Jiménez, 08/25/2024 1:40:05 PM Note Initiated On: 08/25/2024 1:09 PM Number of Addenda: [address] [id number] [facility] 08/25/2024 1:09 PM SOILS ENGINEER Ricardo Jiménez MD GI PROCEDURE ORDERAB LES [facility] * (ABNORMAL) GLUCOSE - POINT OF CARE (08/25/2024 12:00 PM SOILS ENGINEER) Only the most recent of2 resultswithin the time period is included. Glucose WB/POC 189(H) 70 - 99 mg/dL 08/25/2024 1:05 PM SOILS ENGINEER [facility] Specimen Type Venous 08/25/2024 1:05 PM SOILS ENGINEER [facility] Blood BLOOD SPECIMEN / Unknown 08/25/2024 12:00 PM SOILS ENGINEER 08/25/2024 1:05 PM SOILS ENGINEER Ricardo Jiménez MD LAB - POINT OF CARE ORDERABLES [facility] [address] [place] [address], [facility] [phone] * Fractional Exhaled Nitric Oxide [facility] (07/07/2024 1:10 PM SOILS ENGINEER) Impressions Harshal Simpson MD - 07/07/2024 1:10 PM SOILS ENGINEER [facility] DEPARTMENT OF PULMONARY, CRITICAL CARE, AND SLEEP MEDICINE EXHALED NITRIC OXIDE (FeNO) Sylvia Chatterjee 07/09/2024 INTERPRETATION The measurement of fractional exhaled nitric oxide (FENO) was 39 ppb. IMPRESSION: 1. High fractional exhaled nitric oxide. 2. No prior study to compare Mustapha Sheikh MD Pulmonary & Critical Care Fellow Division of Pulmonary, Critical Care, and Sleep Medicine [facility] I have personally reviewed the fellow's interpretation of the test and made any necessary changes when needed. Harshal Simpson MD Heddle Machine Operator of Internal Medicine Division of Pulmonary, Critical Care and Sleep Medicine [facility] Pager: [phone] Narrative Harshal Simpson MD - 07/07/2024 1:10 PM SOILS ENGINEER Mustapha Buckner MD 07/09/2024 4:58 PM Michael Barlow MD RESPIRATORY THERAPY ORDERABLES * Complete PFT [facility] (07/07/2024 1:10 PM SOILS ENGINEER) Impressions Harshal Simpson MD - 07/07/2024 1:10 PM SOILS ENGINEER [facility] DEPARTMENT OF PULMONARY, CRITICAL CARE, AND SLEEP MEDICINE PULMONARY FUNCTION TEST Please see technologist's comments mentioned in the report. INTERPRETATION: SPIROMETRY: FVC: normal. FEV1: normal. FEV1/FVC ratio is normal. BRONCHODILATOR RESPONSE: There is no significant response to bronchodilator therapy, however this does not mean the patient would not benefit from bronchodilator therapy. FLOW-VOLUME LOOPS: Inspection of the flow-volume loops shows normal flow-volume loops. LUNG VOLUMES: Lung volumes by body plethysmography show normal total lung volume and normal residual volume. DIFFUSION CAPACITY DLCO: Unadjusted for Hb and COHb is normal. DLCO: Corrected for Hb and COHb not performed. AIRWAY RESISTANCE The airway resistance is normal and the specific conductance is normal. ARTERIAL BLOOD GAS ANALYSIS: Not performed. IMPRESSION: 1. Normal pulmonary function test. 2. DLCO is normal. 3. No significant bronchodilator response, however this does not preclude the use of bronchodilators. 4. Compared with previous study on 09/24/2021, there is increase in FEV1 by 310 ml, FVC by 490 ml, TLC by 830 ml. No significant change in DLCO. Mustapha Sheikh MD Pulmonary & Critical Care Fellow Division of Pulmonary, Critical Care, and Sleep Medicine [facility] I have personally reviewed the fellow's interpretation of the test and made any necessary changes when needed. Harshal Simpson MD Heddle Machine Operator of Internal Medicine Division of Pulmonary, Critical Care and Sleep Medicine [facility] Pager: [phone] Narrative Harshal Simpson MD - 07/07/2024 1:10 PM SOILS ENGINEER Mustapha Buckner MD 07/09/2024 4:59 PM Michael Barlow MD RESPIRATORY THERAPY ORDERABLES * LA ECG/REVIEW INTERPRET ONLY (06/30/2024 10:41 AM SOILS ENGINEER) Narrative Tammy Redding MD - 06/30/2024 10:41 AM SOILS ENGINEER Tammy Redding MD 06/30/2024 10:45 AM HOLTER MONITOR REPORT: Patient name: Sylvia Chatterjee Patient : 1965 Patient Age: [age] year old Indication: Transient ischemic attack Requesting provider: Miladis Study Duration: Prescribed period 05/24/24-06/22/24 Summary: 1. Atrial ectopy / premature atrial complexes (PAC) - None 2. Ventricular ectopy / premature ventricular complexes (PVC) - None 3. No significant bradycardia or pauses occurred. 4. Atrial fibrillation/flutter was not detected Manually Triggered events: There was 1 manually triggered events. During this triggered episode, the patient reported dizziness, shortness of breath, chest pressure and rapid heart beating and sinus bradycaria with first degree AV block was seen. Other tracings mainly demonstrated sinus rhythm Conclusion: No sustained arrhythmias. Tammy Redding MD ECG ORDERABLES * LA LIVER ELASTOGRAPHY (06/27/2024 3:31 PM SOILS ENGINEER) Narrative Elena Hunter RN - 06/27/2024 3:31 PM SOILS ENGINEER Elena Hunter RN 06/27/2024 3:58 PM Diagnosis: MASLD RN verified patient NPO for prior 3 hours. Procedure explained. Date of Exam: 06/27/2024 Liver Stiffness: (LSM, kPa) median: 5.4 IQR/Median% (ideally < 30%): 12% CAP (controlled attenuation parameter): 252 Technical Difficulty: None Ordering Provider: Kevin Valle MD Phone Fax Kevin Valle MD PROCEDURE/MINOR SURG ICAL ORDERABLES * CARDIAC PROCEDURE ORDER (06/22/2024) Only the most recent of2 resultswithin the time period is included. 06/22/2024 Narrative 06/22/2024 Ordered by an unspecified provider. Scanned Document CARDIAC SERVICES ORD ERABLES * LA POLYSOM 6/> YRS 4/> DEBBIE (06/03/2024 3:49 PM CDT) Narrative Jose Vargas MD - 06/03/2024 3:49 PM CDT Jose Vargas MD 06/03/2024 3:53 PM [facility] Center Accredited by the [employer] [facility], First Floor [address] [place] [address] Telephone : [phone] Medical Records Patient Name: Sylvia Chatterjee : 1965 Date of Study: 05/26/2024 Referring Physician: Stella Sneed MD Type of Montage: Respiratory Scoring System: [facility] FULL NIGHT DIAGNOSTIC POLYSOMNOGRAM INTERPRETATION (05/26/2024) Procedure: The polysomnogram was performed with a veterinary technologist in attendance. Frontal, central, and temporal EEG, EOG, submentalis EMG, oronasal thermistor airflow, nasal pressure transducer airflow, thoracic and abdominal respiratory effort by respiratory inductive plethysmography, anterior tibialis EMG, snore sensor, and pulse oximetry were monitored. Sleep stages, periodic limb movements, and EEG arousals were scored in 30-second epochs according to the AASM Scoring Manual. Apnea-hypopnea index was calculated using the recommended definition of hypopnea for scoring events. Data acquisition, collection, and scoring have been validated and clinically correlated. Sleep History: Ms. Sylvia Chatterjee, a 59 year old female, was referred to the [facility] by Stella Sneed MD for the evaluation of suspected obstructive sleep apnea (ESTHELA). Current Outpatient Medications: albuterol HFA (Proventil; Ventolin; Proair) 108 (90 Base) MCG/ACT inhaler, Inhale 2 (two) puffs by mouth every 4 hours as needed for Shortness of Breath, Wheezing or Cough, Disp: 1 g, Rfl: 4 ascorbic acid (Vitamin C) 500 MG tablet, Take 1 (one) tablet by mouth once daily Take 1 tablet at the same time as your ferrous sulfate (iron tablet)., Disp: 90 tablet, Rfl: 3 Aspirin Low Dose 81 MG tablet, TAKE ONE TABLET BY MOUTH ONCE DAILY, Disp: 90 tablet, Rfl: 2 atorvastatin (Lipitor) 80 MG tablet, TAKE ONE TABLET BY MOUTH DAILY, Disp: 90 tablet, Rfl: 3 blood glucose (ONETOUCH ULTRA TEST STRIPS) test strip, Use 1 (one) strip 4 times daily - before meals & nightly, Disp: 200 strip, Rfl: 11 Blood Glucose Monitoring Suppl (ONE TOUCH ULTRA 2) w/Device KIT, Use 1 Each as directed, Disp: 1 kit, Rfl: 0 budesonide-formoterol (Symbicort) 80-4.5 MCG/ACT inhaler, Inhale 2 (two) puffs by mouth 2 times daily, Disp: 10.2 g, Rfl: 5 citalopram (CELEXA) 40 MG tablet, TK ONE T PO QD., Disp: , Rfl: 2 cromolyn (CROLOM) 4 % ophthalmic solution, 1 (one) drop 4X/day, Disp: , Rfl: cyclobenzaprine (Flexeril) 10 MG tablet, Take 1 (one) tablet by mouth 3 times daily as needed FOR MUSCLE SPASM, Disp: , Rfl: dicyclomine (Bentyl) 10 MG capsule, TAKE ONE CAPSULE BY MOUTH FOUR TIMES A DAY NEEDED FOR ABDOMINAL PAIN, Disp: 120 capsule, Rfl: 11 diphenoxylate-atropine (LOMOTIL) 2.5-0.025 MG tablet, Take 1 tablet by mouth 3 times daily Take three times per day with meals scheduled, Disp: 90 tablet, Rfl: 3 empagliflozin (Jardiance) 25 MG tablet, Take 1 (one) tablet by mouth once daily, Disp: 100 tablet, Rfl: 4 famotidine (Pepcid) 40 MG tablet, Take 1 (one) tablet by mouth once daily, Disp: 90 tablet, Rfl: 3 FeroSul 325 (65 Fe) MG tablet, TAKE ONE TABLET BY MOUTH DAILY AT THE SAME TIME WITH VITAMIN C CAPSULE, Disp: 90 tablet, Rfl: 3 fluticasone propionate (FLONASE) 50 MCG/ACT nasal spray, , Disp: , Rfl: 0 gabapentin (Neurontin) 600 MG tablet, Take 1 (one) tablet by mouth 3 times daily, Disp: 90 tablet, Rfl: 11 glipiZIDE (Glucotrol) 5 MG tablet, TAKE 1 TABLET BY MOUTH TWICE A DAY BEFORE BREAKFAST AND SUPPER, Disp: 60 tablet, Rfl: 5 Insulin Syringe-Needle U-100 26G X 1/2 1 ML [facility], Use 1 Each once daily As backup to insulin pump, Disp: 100 Each, Rfl: 3 isosorbide mononitrate CR 24hr (Imdur) 120 MG tablet, Take 1 (one) tablet by mouth once daily, Disp: 90 tablet, Rfl: 3 Lancet Devices (B-D LANCET DEVICE) [facility], Use 1 Each 4 times daily - before meals & nightly, Disp: 200 Each, Rfl: 11 Lancets (ONETOUCH DELICA PLUS 33G EXTRA FINE LANCET), USE 1 TO TEST FOUR TIMES A DAY BEFORE MEALS AND EVERY NIGHT, Disp: 100 Each, Rfl: 3 Lantus SoloStar pen, INJECT 10 UNITS UNDER THE SKIN ONCE DAILY. ; DISCARD THE CONTENTS OF A PEN AFTER 28 DAYS OF USE, Disp: 6 mL, Rfl: 0 lisinopril (Prinivil; Zestril) 20 MG tablet, TAKE ONE TABLET BY MOUTH DAILY, Disp: 90 tablet, Rfl: 3 loratadine (CLARITIN) 10 MG tablet, Take 1 (one) tablet by mouth DAILY, Disp: , Rfl: metFORMIN (Glucophage) 1000 MG tablet, Take 1 (one) tablet by mouth 2 times daily with morning and evening meal, Disp: 180 tablet, Rfl: 11 metoprolol tartrate IR (Lopressor) 100 MG tablet, TAKE 1 (ONE) TABLET BY MOUTH 2 TIMES DAILY, Disp: 180 tablet, Rfl: 3 montelukast (SINGULAIR) 10 MG tablet, Take 1 tablet by mouth once daily, Disp: 30 tablet, Rfl: 2 nitroGLYCERIN (Nitrostat) 0.4 MG tablet, DISSOLVE 1 TABLET UNDER THE TONGUE EVERY 5 MINUTES NEEDED FOR CHEST PAINS. IF NO RELIEF AFTER 2 DOSES CALL 911., Disp: 25 tablet, Rfl: 0 omeprazole (PriLOSEC) 40 MG capsule, Take 1 (one) capsule by mouth daily before breakfast, Disp: 30 capsule, Rfl: 11 ondansetron (ZOFRAN) 4 MG tablet, TAKE 1 TABLET BY MOUTH EVERY 8 HOURS NEEDED FOR NAUSEA, Disp: 60 tablet, Rfl: 5 pioglitazone (Actos) 15 MG tablet, Take 1 (one) tablet by mouth once daily, Disp: 90 tablet, Rfl: 11 prochlorperazine (Compazine) 10 MG tablet, Take 1 (one) tablet by mouth every 8 hours as needed for Nausea/Vomiting, Disp: 60 tablet, Rfl: 1 QUEtiapine (SEROQUEL) 200 MG tablet, 50 mg , Disp: , Rfl: 0 simethicone (GAS-X) 80 MG tablet, Take 1 tablet by mouth 4 times daily as needed for Gas Pain, Disp: 90 tablet, Rfl: 0 SUMAtriptan (IMITREX) 25 MG tablet, TK 1 T PO PRF POON, Disp: , Rfl: 0 tiotropium (Spiriva Respimat) 2.5 MCG/ACT inhaler, Inhale 2 (two) puffs by mouth once daily, Disp: 12 g, Rfl: 4 traZODone (DESYREL) 100 MG tablet, Take 1 (one) tablet by mouth, Disp: , Rfl: TRUEplus 5-Bevel Pen [place] 32G X 4 MM [facility] [place], USE TO INJECT SUBCUTANEOUSLY DAILY, Disp: 90 Each, Rfl: 0 vitamin D, ergocalciferol, (Drisdol) 1.25 MG (33604 UT) capsule, TAKE ONE CAPSULE BY MOUTH EVERY 7 DAYS, Disp: 4 capsule, Rfl: 0 DIAGNOSTIC STUDY Sleep Architecture: During this diagnostic study, the patient was monitored from 11:13 pm to 6:38 am. The patient slept for 369 minutes and had normal sleep efficiency of 82.8%. The patient's initial sleep latency was prolonged at 55 minutes. The initial REM latency was prolonged at 183 minutes. The sleep architecture was as follows: stage N1: 5.2%; stage N2: 63.4%; stage N3: 8.9%; stage REM: 23.4%. There was an increased number of sleep spindles, especially during the earlier part of the study. Respiratory Analysis: The patient's overall apnea-hypopnea index [...] within normal limits at 6.8 per hour. EEG Profile: The patient's total arousal index was elevated at 19.2 per hour. Virtually all of the arousals were due to respiratory events. There was no epileptiform activity during sleep. Cardiac Profile: EKG showed normal sinus rhythm. No clinically significant arrhythmia was noted. Parasomnias: Increased phasic EMG twitches of the chin and anterior tibial muscles during REM sleep, consistent with REM sleep without atonia, were noted during this diagnostic study. 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 (eg, REM sleep behavior disorder, alpha-synucleinopathy, narcolepsy, certain medications, secondary arousals from REM sleep due to obstructive sleep apnea, periodic limb movements, etc.) Jose Vargas MD, [facility], [facility], [facility] Claim Agent, [facility] Professor of Internal Medicine Adjunct Heddle Machine Operator of Neurology Division of Pulmonary, Critical Care, and Sleep Medicine [facility] This note was electronically signed on 06/03/2024. CC: TYLOR Callejas [address] [place] [address] Stella Sneed MD Breanna SNIDER PROCEDUR E/MINOR SURGICAL ORDERABLES * ECHO COMPLETE (05/24/2024 3:25 PM CDT) IVSd 2D 1.138 cm SSM CV FUJ I PACS LVIDd 5.28 cm SSM CV FUJ I PACS LVIDs 3.024 cm SSM CV FUJ I PACS LVOT diam 2.224 cm SSM CV FUJ I PACS LVPWd 1.159 cm SSM CV FUJ I PACS LV biplane EF 74.103 % SSM CV FUJI PACS LV A2C EF 73.338 % SSM CV FUJ I PACS LV A4C EF 74.678 % SSM CV FUJ I PACS LV EDV A2C 117.168 ml SSM CV FU JI PACS LV EDV A4C 116.702 ml SSM CV FU JI PACS LV ESV A2C 31.24 ml SSM CV FU JI PACS LV ESV A4C 29.552 ml SSM CV FU JI PACS LVOT pk trace 86.979 cm/s SSM CV F UJI PACS LVOT VTI 22.776 cm SSM CV FUJ I PACS RVIDd 4.05 cm SSM CV FUJ I PACS RVOT pk trace 54.739 cm/s SSM CV F UJI PACS RVOT VTI 14.506 cm SSM CV FUJ I PACS LA vol BP 85.195 ml SSM CV FUJ I PACS RA area 21.455 cm SSM CV FUJI PACS AV mn grad 2.761 mmHg SSM CV FU JI PACS AV pk trace 122.881 cm/s SSM CV FUJ I PACS AV VTI 29.703 cm SSM CV FUJ I PACS MV A pk trace 64.851 cm/s SSM CV F UJI PACS MV E pk trace 81.641 cm/s SSM CV F UJI PACS MV E' lateral trace 9.892 cm/s SSM CV FUJI PACS MV mn grad 0.8 mmHg SSM CV FU JI PACS MV VTI 29.991 cm SSM CV FUJ I PACS PV pk trace 72.785 cm/s SSM CV [facility] I PACS TAPSE 2.192 cm SSM CV [facility] I PACS TR pk trace 235.877 cm/s SSM CV FUJ I PACS Ascending aorta 3.08 cm SSM CV FUJI PACS IVC Diam Expiration 1.865 cm SSM CV FUJI PACS Sinus of Valsalva 2.716 cm SSM CV FUJI PACS LA vol index 0.041 l/m SSM CV FUJI PACS Myocardial strain charge 2 unitless SSM CV FUJI PACS RVOT diam Doppler 2.797 cm SSM CV FUJI PACS PV VTI 20.349 cm SSM CV FUJ I PACS MV lat a' trace 9.953 cm/s SSM CV FUJI PACS MV lat S' trace 6.775 cm/s SSM CV FUJI PACS RV-ferro basal diam 3.118 cm SSM CV FUJI PACS RV-ferro mid diam 3.379 cm SSM CV FUJI PACS Aortic annulus 2.417 cm SSM C V FUJI PACS LA size 5.014 cm SSM CV FUJ I PACS ST junction 2.387 cm SSM CV F UJI PACS Anatomical Region Laterality Modality Ultrasound 05/24/2024 3:14 PM CDT Narrative 05/25/2024 9:29 AM CDT Summary * Findings consistent with effects of HTN but otherwise normal satisfactory echocardiogram. LVH newly recognized otherwise no change compared to 11/14/2021 ECHO. * The left ventricle is normal in size, with normal systolic function and an estimated ejection fraction of 74 % by biplane method of disks. Left ventricular wall motion is normal. * Right ventricle is normal in size with normal systolic function. * The left ventricle is normal in size. * Left ventricular systolic function is normal with an estimated ejection fraction of 74 % by biplane method of disks. * Left ventricular segmental wall motion is normal. * The left ventricular mass is moderately increased with eccentric hypertrophy. Mass index 117 gm/M2. RWT 0.44. * The left ventricular diastolic function is consistent with grade II diastolic dysfunction and borderline increased left atrial filling pressure. Average E/e' ratio 10. * The left atrium is moderately dilated with a left atrial volume index of 41 ml/m2 by BP MOD. * The right atrium is normal in size. * The aortic valve is trileaflet. * There is no aortic valve stenosis with a peak velocity of 1 m/s, mean gradient of 3 mmHg, and aortic valve area of 2.98 cm2. Valve area index 1.45 cm2/M2. Stroke volume index 43 ml/M2. Cardiac index > 2.2 L/min/M2. * There is no aortic valve regurgitation. * The mitral valve is thickened and displaying restricted posterior leaflet motion. * There is no mitral valve stenosis. * Mitral valve area by 2D Planimetry is 6.06 cm2. * There is no significant mitral valve regurgitation. * There is trace tricuspid valve regurgitation. * The pulmonary artery systolic pressure is normal, 25 mmHg. Mean PA pressure of 14 mmHg. PVR 1.7 Wood units. * The ascending aorta is normal in size measuring 3.1 cm with an index of 1.5 cm/m2. * There is > 50% collapse of the IVC upon inspiration with an estimated right atrial pressure of 3 mmHg. * There is no pericardial effusion. 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 Staff Referring Physician: Harley Iqbal Ordering Provider: Harley Iqbal Winding Machine Operator: Santa Carney Left Ventricle The left ventricle is normal in size. Left ventricular systolic function is normal with an estimated ejection fraction of 74 % by biplane method of disks. Left ventricular segmental wall motion is normal. The left ventricular mass is moderately increased with eccentric hypertrophy. Mass index 117 gm/M2. RWT 0.44. The left ventricular diastolic function is consistent with grade II diastolic dysfunction and borderline increased left atrial filling pressure. Average E/e' ratio 10. Right Ventricle The right ventricle is normal in size. Right ventricular systolic function is normal. Right ventricular wall thickness is normal. Ventricular Septum Intact interventricular septum visualized by 2D and color Doppler imaging. Left Atrium The left atrium is moderately dilated with a left atrial volume index of 41 ml/m2 by BP MOD. No mass or thrombus formation in the left atrium. Right Atrium The right atrium is normal in size. No mass or thrombus formation in the right atrium. Atrial Septum Intact interatrial septum visualized by 2D and color Doppler imaging. Aortic Valve The aortic valve is trileaflet. There is no aortic valve regurgitation. There is no aortic valve stenosis with a peak velocity of 1 m/s, mean gradient of 3 mmHg, and aortic valve area of 2.98 cm2. Valve area index 1.45 cm2/M2. Stroke volume index 43 ml/M2. Cardiac index > 2.2 L/min/M2. Pulmonic Valve The pulmonic valve is normal. There is no pulmonic valve stenosis. There is no pulmonic regurgitation. Pulmonary valve area by Continuity Equation is 4.4 cm2. Mitral Valve Mild mitral annular calcification. The mitral valve is thickened and displaying restricted posterior leaflet motion. There is no mitral valve stenosis. There is no significant mitral valve regurgitation. Mitral valve diastolic mean gradient is 1 mmHg. Mitral valve area by 2D Planimetry is 6.06 cm2. Tricuspid Valve The tricuspid valve is normal. There is no significant tricuspid valve stenosis. There is trace tricuspid valve regurgitation. The pulmonary artery systolic pressure is normal, 25 mmHg. Mean PA pressure of 14 mmHg. PVR 1.7 Wood units. Inferior Vena Cava The inferior vena cava is normal in size (< 2.1 cm). There is > 50% collapse of the IVC upon inspiration with an estimated right atrial pressure of 3 mmHg. Pericardium/Pleural There is no pericardial effusion. Aorta The aortic root at the sinus of Valsalva is normal in size. The ascending aorta is normal in size. The aortic root at the sinus of Valsalva is normal in size measuring 2.7 cm with an index of 1.3 cm/m2. The ascending aorta is normal in size measuring 3.1 cm with an index of 1.5 cm/m2. The descending aortic arch is normal in size measuring 2.9 cm. Wall Motion Scoring Index: 1.00 Measurements Left Ventricular Outflow Tract Name Value Normal LVOT 2D LVOT Diameter 2.2 cm LVOT Area 3.9 cm2 LVOT Doppler LVOT Peak Velocity 0.9 m/s LVOT Peak Gradient 3 mmHg LVOT Mean Velocity 55.58 cm/s LVOT Mean Gradient 1 mmHg LVOT VTI 22.8 cm LVOT VTI/AV VTI Ratio 0.8 LVOT Stroke Volume 88 ml LVOT Stroke Volume Index 43 ml/m2 35-58 LVOT CO 4.0 l/min LVOT CI 2.0 l/min/m2 Pulmonic Valve Name Value Normal PV 2D RVOT Diameter (2D) 2.8 cm 1.7-2.7 RVOT Doppler RVOT Peak Velocity 0.5 m/s RVOT Peak Gradient 1 mmHg RVOT Mean Gradient 1 mmHg PV Doppler PV Peak Velocity 0.7 m/s PV Peak Gradient 2 mmHg PV Mean Gradient 1 mmHg PV Area (Cont Eq VTI) 4.38 cm2 PV Area Index (Cont Eq VTI) 2.13 cm2/m2 PV Area (Cont Eq Trace) 4.6 cm2 PV Area Index (Cont Eq Trace) 2.24 cm2/m2 PV Accel Time 199.81 ms Mitral Valve Name Value Normal MV 2D/MM MV Area (Planimetry) 6.06 cm2 4.00-5.00 MV Annulus Diameter (PLAX) 2.7 cm MV Annulus Diameter (2C) 3.3 cm MV Annulus Diameter (4C) 3.3 cm <=4.4 MV Doppler MV Peak Gradient 3 mmHg MV Mean Gradient 1 mmHg MV DI (VTI) 1.32 MV Decel Time (CW) 268 ms MV PHT 78 ms MV Area (PHT) 2.83 cm2 4.00-5.00 MV Area (Cont Eq VTI) 2.95 cm2 MV Regurgitation Doppler MR Volume (Cont Eq) 0 ml MR Fraction (Cont Eq) 0 % MV Diastolic Function MV E Peak Velocity 0.8 m/sec MV A Peak Velocity 0.6 m/sec MV E/A 1.3 MV Decel Time (PW) 270 ms MV A Wave Duration 166 ms MV Annular TDI MV Septal s' Velocity 6 cm/s MV Septal e' Velocity 7 cm/s >=8 MV Septal a' Velocity 7 cm/s MV E/e' (Septal) 11 <=8 MV A/a' (Septal) 9 MV Lateral s' Velocity 7 cm/s MV Lateral e' Velocity 10 cm/s >=10 MV Lateral a' Velocity 10 cm/s MV E/e' (Lateral) 8 <=8 MV A/a' (Lateral) 7 MV e' Average 9 cm/s MV E/e' (Average) 10 Tricuspid Valve Name Value Normal TV 2D TV Annulus Diameter (4C) 3.0 cm TV Doppler TV Peak Velocity 0.8 m/s TV Peak Gradient 2 mmHg TV Mean Gradient 1 mmHg TV PHT 112 ms TV Area (PHT) 1.97 cm2 TV Regurgitation Doppler TR Peak Velocity 2.4 m/s TR Peak Gradient 22 mmHg Estimated PAP/RSVP RA Pressure 3 mmHg <=5 PA Systolic Pressure 25 mmHg <35 RV Systolic Pressure 25 mmHg <36 TV Diastolic Function TV E Peak Velocity 0.8 m/sec TV A Peak Velocity 0.5 m/sec TV E/A 1.5 0.8-2.0 TV Decel Time 385 ms >=120 RV IVRT (PW) 75 ms TV Annular TDI TV Lateral Rosanne s' Velocity 12 cm/s 10-19 TV Lateral Rosanne e' Velocity 11 cm/s 8-20 TV Lateral Rosanne a' Velocity 15 cm/s TV E/e' 7 2-6 TV A/a' 3 Pulmonary Vessels Name Value Normal Pulmonary Veins Pulm Vein Peak Systolic Velocity 74.6 cm/s Pulm Vein Peak Diastolic Velocity 52.1 cm/s Pulm Vein S/D Velocity Ratio 1 Pulm Vein Ar Velocity 22.5 cm/s Pulm Vein Ar Dur - MV A Dur 4 ms Aorta Name Value Normal Ascending Aorta Ao Annulus Diameter 2.4 cm 2.1-2.5 Ao Annulus Diam Index 1.2 cm/m2 1.2-1.4 Sinus of Valsalva Diameter 2.7 cm 2.4-3.6 Sinus of Valsalva Index 1.3 cm/m2 1.4-2.2 Ao Sinotub Junction Diameter 2.4 cm 2.3-2.9 Asc Ao Diameter 3.1 cm 1.9-3.5 Asc Ao Diameter Index 1.5 cm/m2 1.0-2.2 Mid Asc Ao Diameter 3.3 cm Distal Asc Ao Diameter 3.3 cm Thoracic Aorta Ao Arch Diameter 3.0 cm Distal Transverse Arch Diameter 2.9 cm Ao Isthmus Diameter 2.7 cm Septae/Shunt/Generic Name Value Normal Qp/Qs Qp/Qs 1.0 Miscellaneous Measurements MV posterior MAC diameter 2D LAX plane Length 0.67 cm CW Doppler of antegrade systolic flow in proximal descending aorta Peak Velocity 86.13 cm/s CW Doppler of antegrade systolic flow in proximal descending aorta Mean Gradient 2 mmHg PW Doppler of antegrade systolic flow in proximal descending aorta VTI 13.81 cm PW Doppler of antegrade systolic flow in proximal descending aorta Mean Velocity 33.69 cm/s PW Doppler of antegrade systolic flow in proximal descending aorta Peak Gradient 1 mmHg CW Doppler of antegrade systolic flow in proximal descending aorta VTI 23.80 cm CW Doppler of antegrade systolic flow in proximal descending aorta Mean Velocity 59.98 cm/s CW Doppler of antegrade systolic flow in proximal descending aorta Peak Gradient 3 mmHg PW Doppler of antegrade systolic flow in proximal descending aorta Peak Velocity 54.56 cm/s PW Doppler of antegrade systolic flow in proximal descending aorta Mean Gradient 1 mmHg Venous Name Value Normal IVC/SVC IVC Diameter 1.9 cm <=2.1 IVC Diameter (Insp 2D) 0.3 cm IVC Diameter Percent Change (2D) 84 % >=50 Aortic Valve Name Value Normal AV 2D/MM AV Area (Planimetry) 2.98 cm2 >=3.00 AV Cusp Sep (MM) 1.7 cm AV Doppler AV Peak Velocity 1.23 m/s AV Peak Gradient 5 mmHg AV Mean Gradient 3 mmHg AV VTI 30 cm AV Area (Cont Eq VTI) 2.98 cm2 >=2.00 AV Area (Cont Eq Trace) 2.75 cm2 AV DI (VTI) 0.77 AV DI (Trace) 0.71 AV Regurgitation 2D LVOT Area 3.88 cm2 AV Regurgitation Doppler AR Fraction (Cont Eq) 0 % AR Volume (Cont Eq) 0 ml Ventricles Name Value Normal LV Dimensions 2D/MM IVS Diastolic Thickness (2D) 1.1 cm 0.6-0.9 LVID Diastole (2D) 5.3 cm 3.8-5.2 LVPW Diastolic Thickness (2D) 1.2 cm 0.6-0.9 LVID Systole (2D) 3.0 cm 2.2-3.5 LV Systolic Endo Area 8 cm2 LV Diastolic Endo Area 21 cm2 LV Systolic Epic Area 35 cm2 LV Diastolic Epic Area 48 cm2 LV Mass (2D Cubed) 240 g 67-162 LV Mass Index (2D Cubed) 117 g/m2 43-95 Relative Wall Thickness (2D) 0.44 <=0.42 LV Fractional Shortening/Ejection Fraction 2D/MM LV Fractional Shortening (2D) 37 % 27-45 LV EF (2D Teicholz) 73 % 54-74 LV Diastolic Volume (4C MOD) 117 ml LV EF (4C MOD) 75 % LV Diastolic Volume (2C MOD) 117 ml LV EF (2C MOD) 73 % LV Diastolic Volume (BP MOD) 119 ml 46-106 LV Diastolic Volume Index (BP MOD) 58 ml/m2 29-61 LV Systolic Volume (BP MOD) 31 ml 14-42 LV Systolic Volume Index (BP MOD) 15 ml/m2 8-24 LV EF (BP MOD) 74 % 54-74 LV Diastolic Length (4C) 8.4 cm LV Systolic Length (4C) 6.3 cm LV End Diastolic Volume (BP A-L) 147 ml LV End Systolic Volume (BP A-L) 42 ml LV EF (BP A-L) 71 % LV Stroke Volume (4C MOD) 87 ml RV Dimensions 2D/MM RVID Diastole (2D) 4.0 cm 2.5-3.5 RVID Systole (2D) 2.8 cm RV Diastolic Wall Thickness (2D) 0.6 cm 0.1-0.5 RV Systolic Wall Thickness (2D) 0.8 cm RV Basal Diastolic Dimension 3.1 cm 2.5-4.1 RV Mid-Cavity Diastolic Dimension 3.4 cm 1.9-3.5 RV Diastolic Length (4C) 7.4 cm 5.9-8.3 RV Diastolic Area (4C) 20 cm2 8-20 RV Systolic Area (4C) 10 cm2 3-11 TAPSE 2.2 cm >=1.7 RV Fractional Shortening 2D RV FAC (4C) 49 % >=35 Atria Name Value Normal LA Dimensions LA Dimension (2D) 5.0 cm 2.7-3.8 LA Dimen Index (2D) 2.4 cm/m2 LA Volume (BP MOD) 85 ml LA Volume Index (BP MOD) 41 ml/m2 16-34 RA Dimensions RA Area (4C) 21 cm2 <=18 RA Area (4C) Index 10 cm2/m2 RA ESV (4C MOD) 67 ml 15-27 RA ESV Index (4C MOD) 33 ml/m2 16-34 Pericardium Name Value Normal Pericardium 2D/MM Pericardial Effusion Diastole (2D) 0.0 cm Report Signatures Finalized by Alen Heard MD on 05/25/2024 09:29 AM Procedure Note Alen Heard MD - 05/25/2024 Summary * Findings consistent with effects of HTN but otherwise normalsatisfactory echocardiogram. LVH newly recognized otherwise no change compared to11/14/2021 ECHO. * The left ventricle is normal in size, with normal systolic functionand an estimated ejection fraction of 74 % by biplane method of disks. Left ventricular wall motion is normal. * Right ventricle is normal in size with normal systolic function. * The left ventricle is normal in size. * Left ventricular systolic function is normal with an estimatedejection fraction of 74 % by biplane method of disks. * Left ventricular segmental wall motion is normal. * The left ventricular mass is moderately increased with eccentric hypertrophy. Mass index 117 gm/M2. RWT 0.44. * The left ventricular diastolic function is consistent with grade II diastolic dysfunction and borderline increased left atrial fillingpressure. Average E/e' ratio 10. * The left atrium is moderately dilated with a left atrial volume indexof 41 ml/m2 by BP MOD. * The right atrium is normal in size. * The aortic valve is trileaflet. * There is no aortic valve stenosis with a peak velocity of 1 m/s,mean gradient of 3 mmHg, and aortic valve area of 2.98 cm2. Valve area index1.45 cm2/M2. Stroke volume index 43 ml/M2. Cardiac index > 2.2 L/min/M2. * There is no aortic valve regurgitation. * The mitral valve is thickened and displaying restricted posteriorleaflet motion. * There is no mitral valve stenosis. * Mitral valve area by 2D Planimetry is 6.06 cm2. * There is no significant mitral valve regurgitation. * There is trace tricuspid valve regurgitation. * The pulmonary artery systolic pressure is normal, 25 mmHg. Mean PA pressure of 14 mmHg. PVR 1.7 Wood units. * The ascending aorta is normal in size measuring 3.1 cm with an indexof 1.5 cm/m2. * There is > 50% collapse of the IVC upon inspiration with anestimated right atrial pressure of 3 mmHg. * There is no pericardial effusion. 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 Staff Referring Physician: Harley Iqbal Ordering Provider: Harley Iqbal Winding Machine Operator: Santa Carney Left Ventricle The left ventricle is normal in size. Left ventricular systolic functionis normal with an estimated ejection fraction of 74 % by biplane method ofdisks. Left ventricular segmental wall motion is normal. The left ventricularmass is moderately increased with eccentric hypertrophy. Mass index 117 gm/M2.RWT 0.44. The left ventricular diastolic function is consistent with gradeII diastolic dysfunction and borderline increased left atrial fillingpressure. Average E/e' ratio 10. Right Ventricle The right ventricle is normal in size. Right ventricular systolicfunction is normal. Right ventricular wall thickness is normal. Ventricular Septum Intact interventricular septum visualized by 2D and color Dopplerimaging. Left Atrium The left atrium is moderately dilated with a left atrial volume index of41 ml/m2 by BP MOD. No mass or thrombus formation in the left atrium. Right Atrium The right atrium is normal in size. No mass or thrombus formation inthe right atrium. Atrial Septum Intact interatrial septum visualized by 2D and color Doppler imaging. Aortic Valve The aortic valve is trileaflet. There is no aortic valveregurgitation. There is no aortic valve stenosis with a peak velocity of 1 m/s, meangradient of 3 mmHg, and aortic valve area of 2.98 cm2. Valve area index 1.45cm2/M2. Stroke volume index 43 ml/M2. Cardiac index > 2.2 L/min/M2. Pulmonic Valve The pulmonic valve is normal. There is no pulmonic valve stenosis. Thereis no pulmonic regurgitation. Pulmonary valve area by Continuity Equation is4.4 cm2. Mitral Valve Mild mitral annular calcification. The mitral valve is thickened and displaying restricted posterior leaflet motion. There is no mitral valve stenosis. There is no significant mitral valve regurgitation. Mitralvalve diastolic mean gradient is 1 mmHg. Mitral valve area by 2D Planimetry is6.06 cm2. Tricuspid Valve The tricuspid valve is normal. There is no significant tricuspid valve stenosis. There is trace tricuspid valve regurgitation. The pulmonaryartery systolic pressure is normal, 25 mmHg. Mean PA pressure of 14 mmHg. PVR1.7 Wood units. Inferior Vena Cava The inferior vena cava is normal in size (< 2.1 cm). There is > 50%collapse of the IVC upon inspiration with an estimated right atrial pressure of 3mmHg. Pericardium/Pleural There is no pericardial effusion. Aorta The aortic root at the sinus of Valsalva is normal in size. Theascending aorta is normal in size. The aortic root at the sinus of Valsalva isnormal in size measuring 2.7 cm with an index of 1.3 cm/m2. The ascending aorta is normal in size measuring 3.1 cm with an index of 1.5 cm/m2. Thedescending aortic arch is normal in size measuring 2.9 cm. Wall Motion Scoring Index: 1.00 Measurements Left Ventricular Outflow Tract Name Value Normal LVOT 2D LVOT Diameter 2.2 cm LVOT Area 3.9 cm2 LVOT Doppler LVOT Peak Velocity 0.9 m/s LVOT Peak Gradient 3 mmHg LVOT Mean Velocity 55.58 cm/s LVOT Mean Gradient 1 mmHg LVOT VTI 22.8 cm LVOT VTI/AV VTI Ratio 0.8 LVOT Stroke Volume 88 ml LVOT Stroke Volume Index 43 ml/m2 35-58 LVOT CO 4.0 l/min LVOT CI 2.0 l/min/m2 Pulmonic Valve Name Value Normal PV 2D RVOT Diameter (2D) 2.8 cm 1.7-2.7 RVOT Doppler RVOT Peak Velocity 0.5 m/s RVOT Peak Gradient 1 mmHg RVOT Mean Gradient 1 mmHg PV Doppler PV Peak Velocity 0.7 m/s PV Peak Gradient 2 mmHg PV Mean Gradient 1 mmHg PV Area (Cont Eq VTI) 4.38 cm2 PV Area Index (Cont Eq VTI) 2.13 cm2/m2 PV Area (Cont Eq Trace) 4.6 cm2 PV Area Index (Cont Eq Trace) 2.24 cm2/m2 PV Accel Time 199.81 ms Mitral Valve Name Value Normal MV 2D/MM MV Area (Planimetry) 6.06 cm2 4.00-5.00 MV Annulus Diameter (PLAX) 2.7 cm MV Annulus Diameter (2C) 3.3 cm MV Annulus Diameter (4C) 3.3 cm <=4.4 MV Doppler MV Peak Gradient 3 mmHg MV Mean Gradient 1 mmHg MV DI (VTI) 1.32 MV Decel Time (CW) 268 ms MV PHT 78 ms MV Area (PHT) 2.83 cm2 4.00-5.00 MV Area (Cont Eq VTI) 2.95 cm2 MV Regurgitation Doppler MR Volume (Cont Eq) 0 ml MR Fraction (Cont Eq) 0 % MV Diastolic Function MV E Peak Velocity 0.8 m/sec MV A Peak Velocity 0.6 m/sec MV E/A 1.3 MV Decel Time (PW) 270 ms MV A Wave Duration 166 ms MV Annular TDI MV Septal s' Velocity 6 cm/s MV Septal e' Velocity 7 cm/s >=8 MV Septal a' Velocity 7 cm/s MV E/e' (Septal) 11 <=8 MV A/a' (Septal) 9 MV Lateral s' Velocity 7 cm/s MV Lateral e' Velocity 10 cm/s >=10 MV Lateral a' Velocity 10 cm/s MV E/e' (Lateral) 8 <=8 MV A/a' (Lateral) 7 MV e' Average 9 cm/s MV E/e' (Average) 10 Tricuspid Valve Name Value Normal TV 2D TV Annulus Diameter (4C) 3.0 cm TV Doppler TV Peak Velocity 0.8 m/s TV Peak Gradient 2 mmHg TV Mean Gradient 1 mmHg TV PHT 112 ms TV Area (PHT) 1.97 cm2 TV Regurgitation Doppler TR Peak Velocity 2.4 m/s TR Peak Gradient 22 mmHg Estimated PAP/RSVP RA Pressure 3 mmHg <=5 PA Systolic Pressure 25 mmHg <35 RV Systolic Pressure 25 mmHg <36 TV Diastolic Function TV E Peak Velocity 0.8 m/sec TV A Peak Velocity 0.5 m/sec TV E/A 1.5 0.8-2.0 TV Decel Time 385 ms >=120 RV IVRT (PW) 75 ms TV Annular TDI TV Lateral Rosanne s' Velocity 12 cm/s 10-19 TV Lateral Rosanne e' Velocity 11 cm/s 8-20 TV Lateral Rosanne a' Velocity 15 cm/s TV E/e' 7 2-6 TV A/a' 3 Pulmonary Vessels Name Value Normal Pulmonary Veins Pulm Vein Peak Systolic Velocity 74.6 cm/s Pulm Vein Peak Diastolic Velocity 52.1 cm/s Pulm Vein S/D Velocity Ratio 1 Pulm Vein Ar Velocity 22.5 cm/s Pulm Vein Ar Dur - MV A Dur 4 ms Aorta Name Value Normal Ascending Aorta Ao Annulus Diameter 2.4 cm 2.1-2.5 Ao Annulus Diam Index 1.2 cm/m2 1.2-1.4 Sinus of Valsalva Diameter 2.7 cm 2.4-3.6 Sinus of Valsalva Index 1.3 cm/m2 1.4-2.2 Ao Sinotub Junction Diameter 2.4 cm 2.3-2.9 Asc Ao Diameter 3.1 cm 1.9-3.5 Asc Ao Diameter Index 1.5 cm/m2 1.0-2.2 Mid Asc Ao Diameter 3.3 cm Distal Asc Ao Diameter 3.3 cm Thoracic Aorta Ao Arch Diameter 3.0 cm Distal Transverse Arch Diameter 2.9 cm Ao Isthmus Diameter 2.7 cm Septae/Shunt/Generic Name Value Normal Qp/Qs Qp/Qs 1.0 Miscellaneous Measurements MV posterior MAC diameter 2D LAX plane Length 0.67 cm CW Doppler of antegrade systolic flow in proximal descending aorta Peak Velocity 86.13 cm/s CW Doppler of antegrade systolic flow in proximal descending aorta Mean Gradient 2 mmHg PW Doppler of antegrade systolic flow in proximal descending aorta VTI 13.81 cm PW Doppler of antegrade systolic flow in proximal descending aorta Mean Velocity 33.69 cm/s PW Doppler of antegrade systolic flow in proximal descending aorta Peak Gradient 1 mmHg CW Doppler of antegrade systolic flow in proximal descending aorta VTI 23.80 cm CW Doppler of antegrade systolic flow in proximal descending aorta Mean Velocity 59.98 cm/s CW Doppler of antegrade systolic flow in proximal descending aorta Peak Gradient 3 mmHg PW Doppler of antegrade systolic flow in proximal descending aorta Peak Velocity 54.56 cm/s PW Doppler of antegrade systolic flow in proximal descending aorta Mean Gradient 1 mmHg Venous Name Value Normal IVC/SVC IVC Diameter 1.9 cm <=2.1 IVC Diameter (Insp 2D) 0.3 cm IVC Diameter Percent Change (2D) 84 % >=50 Aortic Valve Name Value Normal AV 2D/MM AV Area (Planimetry) 2.98 cm2 >=3.00 AV Cusp Sep (MM) 1.7 cm AV Doppler AV Peak Velocity 1.23 m/s AV Peak Gradient 5 mmHg AV Mean Gradient 3 mmHg AV VTI 30 cm AV Area (Cont Eq VTI) 2.98 cm2 >=2.00 AV Area (Cont Eq Trace) 2.75 cm2 AV DI (VTI) 0.77 AV DI (Trace) 0.71 AV Regurgitation 2D LVOT Area 3.88 cm2 AV Regurgitation Doppler AR Fraction (Cont Eq) 0 % AR Volume (Cont Eq) 0 ml Ventricles Name Value Normal LV Dimensions 2D/MM IVS Diastolic Thickness (2D) 1.1 cm 0.6-0.9 LVID Diastole (2D) 5.3 cm 3.8-5.2 LVPW Diastolic Thickness (2D) 1.2 cm 0.6-0.9 LVID Systole (2D) 3.0 cm 2.2-3.5 LV Systolic Endo Area 8 cm2 LV Diastolic Endo Area 21 cm2 LV Systolic Epic Area 35 cm2 LV Diastolic Epic Area 48 cm2 LV Mass (2D Cubed) 240 g 67-162 LV Mass Index (2D Cubed) 117 g/m2 43-95 Relative Wall Thickness (2D) 0.44 <=0.42 LV Fractional Shortening/Ejection Fraction 2D/MM LV Fractional Shortening (2D) 37 % 27-45 LV EF (2D Teicholz) 73 % 54-74 LV Diastolic Volume (4C MOD) 117 ml LV EF (4C MOD) 75 % LV Diastolic Volume (2C MOD) 117 ml LV EF (2C MOD) 73 % LV Diastolic Volume (BP MOD) 119 ml 46-106 LV Diastolic Volume Index (BP MOD) 58 ml/m2 29-61 LV Systolic Volume (BP MOD) 31 ml 14-42 LV Systolic Volume Index (BP MOD) 15 ml/m2 8-24 LV EF (BP MOD) 74 % 54-74 LV Diastolic Length (4C) 8.4 cm LV Systolic Length (4C) 6.3 cm LV End Diastolic Volume (BP A-L) 147 ml LV End Systolic Volume (BP A-L) 42 ml LV EF (BP A-L) 71 % LV Stroke Volume (4C MOD) 87 ml RV Dimensions 2D/MM RVID Diastole (2D) 4.0 cm 2.5-3.5 RVID Systole (2D) 2.8 cm RV Diastolic Wall Thickness (2D) 0.6 cm 0.1-0.5 RV Systolic Wall Thickness (2D) 0.8 cm RV Basal Diastolic Dimension 3.1 cm 2.5-4.1 RV Mid-Cavity Diastolic Dimension 3.4 cm 1.9-3.5 RV Diastolic Length (4C) 7.4 cm 5.9-8.3 RV Diastolic Area (4C) 20 cm2 8-20 RV Systolic Area (4C) 10 cm2 3-11 TAPSE 2.2 cm >=1.7 RV Fractional Shortening 2D RV FAC (4C) 49 % >=35 Atria Name Value Normal LA Dimensions LA Dimension (2D) 5.0 cm 2.7-3.8 LA Dimen Index (2D) 2.4 cm/m2 LA Volume (BP MOD) 85 ml LA Volume Index (BP MOD) 41 ml/m2 16-34 RA Dimensions RA Area (4C) 21 cm2 <=18 RA Area (4C) Index 10 cm2/m2 RA ESV (4C MOD) 67 ml 15-27 RA ESV Index (4C MOD) 33 ml/m2 16-34 Pericardium Name Value Normal Pericardium 2D/MM Pericardial Effusion Diastole (2D) 0.0 cm Report Signatures Finalized by Alen Heard MD on 05/25/2024 09:29 AM Harley Iqbal MD ECHO CUPID * (ABNORMAL) COMPREHENSIVE METABOLIC PANEL (10/13/2023 12:55 PM [facility]) Only the most recent of6 resultswithin the time period is included. BUN 28(H) 7 - 26 mg/dL 10/13/2023 1:57 PM [facility] Creatinine 0.93 0.56 - 0.96 mg/dL 10/13/2023 1:57 PM [facility] Sodium 133(L) 136 - 145 mmol/L 10/13/2023 1:57 PM [facility] Potassium 4.9(H) 3.5 - 4.5 mmol/L 10/13/2023 1:57 PM [facility] Chloride 99 98 - 107 mmol/L 10/13/2023 1:57 PM [facility] CO2 25 22 - 29 mmol/L 10/13/2023 1:57 PM [facility] Glucose 269(H) 70 - 115 mg/dL 10/13/2023 1:57 PM [facility] Calcium 9.3 8.4 - 10.2 mg/dL 10/13/2023 1:57 PM [facility] Protein Total 6.9 6.0 - 8.3 g/dL 10/13/2023 1:57 PM [facility] Albumin 4.0 3.4 - 5.0 g/dL 10/13/2023 1:57 PM [facility] Bilirubin Total 0.6 0.2 - 1.2 mg/dL 10/13/2023 1:57 PM [facility] Alkaline Phosphatase 81 40 - 150 U/L 10/13/2023 1:57 PM [facility] ALT 20 5 - 55 U/L 10/13/2023 1:57 PM [facility] AST 15 5 - 34 U/L 10/13/2023 1:57 PM [facility] Anion Gap 9 6 - 16 10/13/2023 1:57 PM [facility] BUN/Creatinine Ratio 30(H) 7 - 23 10/13/2023 1:57 PM [facility] Osmolality Calculated 291 275 - 295 mOsm/kg 10/13/2023 1:57 PM [facility] Albumin/Globulin Ratio 1.4 1.1 - 2.3 10/13/2023 1:57 PM SOILS ENGINEER [facility] eGFR by CKD-EPI 71(L) >=90 mL/min/1.7 3 m2 10/13/2023 1:57 PM SOILS ENGINEER [facility] Blood BLOOD SPECIMEN / Unknown Lab Venipuncture / Unknown 10/13/2023 12:55 PM SOILS ENGINEER 10/13/2023 1:23 PM SOILS ENGINEER Luiza Fernandez MD LAB - CHEMISTRY CHARLI CREWS Performing Organization Address City/[facility]/ZIP Co de Phone Number [facility] [address] [place] [address], [place] [phone] * TSH (10/13/2023 12:55 PM SOILS ENGINEER) Only the most recent of3 resultswithin the time period is included. TSH 1.975 0.350 - 4.940 uIU/mL 10/13/2023 2:16 PM SOILS ENGINEER [facility] Blood BLOOD SPECIMEN / Unknown Lab Venipuncture / Unknown 10/13/2023 12:55 PM SOILS ENGINEER 10/13/2023 1:23 PM SOILS ENGINEER Luiza Fernandez MD LAB - CHEMISTRY CHARLI CREWS Performing Organization Address [facility]/ZIP Co de Phone Number [facility] [address] [place] [address], [place] [phone] * HEMOGLOBIN A1C - POINT OF CARE (AMB) [facility] (10/13/2023 11:33 AM SOILS ENGINEER) Only the most recent of10 resultswithin the time period is included. Pathologist [facility] Hemoglobin A1c POCT 10.1 % [address] BLOOD SPECIMEN / Unknown 10/13/2023 11:33 AM SOILS ENGINEER Luiza Fernandez MD LAB - POINT OF CARE ORDERABLES Performing Organization Address [facility]/ZIP Co de Phone Number [facility] [address] [facility] [address] [facility] [place] [address], [place] [phone] * CELIAC DISEASE PROFILE W RFLX (07/07/2023 11:20 AM SOILS ENGINEER) Endomysial Antibody IgA Negative Negative 07/08/2023 3:09 PM [facility] ([facility]) TTG Antibody IgA <2 0 - 3 U/mL 07/08/20 3:09 PM [facility]) Comment: Negative 0 - 3 Weak Positive 4 - 10 Positive >10 Tissue Transglutaminase (tTG) has been identified as the endomysial antigen. Studies have demonstr- ated that endomysial IgA antibodies have over 99% specificity for gluten sensitive enteropathy. IgA Quantitative 193 87 - 352 mg/dL 07/08/2023 3:09 PM [facility]) Blood BLOOD SPECIMEN / Unknown Lab Venipuncture / Unknown 07/07/2023 11:20 AM SOILS ENGINEER 07/07/2023 11:27 AM [facility] ([facility]) - 07/08/2023 3:09 PM SOILS ENGINEER Performed at: [address] [place] [address] [id number] Cloth Covered Helmet Puller: Esteban Limon PhD, Phone: [phone] Luiza Fernandez MD LAB - CHEMISTRY CHARLI CREWS [facility]) [address] [place] [address], [facility] * IRON + TRANSFERRIN PANEL [w/Transferrin Sat % + TIBC] (07/07/2023 11:20 AM [facility]) Only the most recent of2 resultswithin the time period is included. Iron 48 40 - 150 ug/dL 07/07/2023 11:52 AM [facility] Transferrin 234 174 - 382 mg/dL 07/07/2023 11:52 AM [facility] Transferrin Saturation % 16 16 - 50 % 07/07/2023 11:52 AM [facility] TIBC Calculated 293 240 - 450 ug/dL 07/07/2023 11:52 AM [facility] Blood BLOOD SPECIMEN / Unknown Lab Venipuncture / Unknown 07/07/2023 11:20 AM SOILS ENGINEER 07/07/2023 11:27 AM SOILS ENGINEER Jose Vargas MD LAB - CHEMISTRY ORD ERABLES Performing Organization Address City/[facility]/ZIP Co de Phone Number [address] [address], [place] [phone] * FERRITIN (07/07/2023 11:20 AM SOILS ENGINEER) Only the most recent of2 resultswithin the time period is included. Ferritin 148 13 - 204 ng/mL 07/07/2023 12:27 PM SOILS ENGINEER [facility] Blood BLOOD SPECIMEN / Unknown Lab Venipuncture / Unknown 07/07/2023 11:20 AM SOILS ENGINEER 07/07/2023 11:27 AM SOILS ENGINEER Jose Vargas MD LAB - CHEMISTRY ORD ERABLES Performing Organization Address [facility] Co de Phone Number [address] [address], [place] [phone] * MICROALB/CREAT RATIO URINE RANDOM PANEL (06/09/2023 12:44 PM CDT) Only the most recent of4 resultswithin the time period is included. Albumin Random Urine 35.5 Not Established ug/mL 06/09/2023 2:28 PM CDT [facility] Creatinine Urine >400.00 Not Established mg/dL 06/09/2023 2:28 PM CDT [facility] Urine Albumin/Creati nine Ratio <9 <30 mg/g 06/09/2023 2:28 PM CDT [facility] Urine URINE SPECIMEN OBTAINED BY CLEAN CATCH PROCEDURE / Unknown Collection / Unknown 06/09/2023 12:44 PM CDT 06/09/2023 1:42 PM CDT Luiza Fernandez MD LAB - URINE CHEMISTR Y ORDERABLES Performing Organization Address City/[facility]/ZIP Co de Phone Number [address] [address], [place] [phone] * (ABNORMAL) VITAMIN D 25-HYDROXY (06/09/2023 12:41 PM CDT) Only the most recent of4 resultswithin the time period is included. Vitamin D, 25 Hydroxy 24.0(L) 30.0 - 80.0 ng/mL 06/09/2023 2:35 PM CDT [facility] Comment: The recommendations for 25-Hydroxy Vitamin D clinical decision points are as follows: Deficient: <20.0 ng/mL Insufficient: 20.0 - 29.9 ng/mL Sufficient: 30.0 - 100.0 ng/mL Potential Toxicity: >100 ng/mL Reference: The Endocrine Society Clinical Practice Guidelines. 2011 If the 25-Hydroxy Vitamin D results are inconsitent with clinical evidence, it is recommended that follow-up testing using a method such as LC/MS/MS be performed to confirm the result. Blood BLOOD SPECIMEN / Unknown Lab Venipuncture / Unknown 06/09/2023 12:41 PM CDT 06/09/2023 1:47 PM CDT Jose Vargas MD LAB - CHEMISTRY ORD ERABLES [address] [address], [facility] [phone] * LIPID PROFILE (06/09/2023 12:41 PM CDT) Cholesterol Total 129 <200 mg/dL 06/09/2023 2:23 PM CDT [facility] HDL 46 >40 mg/dL 06/09/2023 2:23 PM T [facility] Comment: ATP III Classification of HDL Cholesterol: <40 mg/dL: Considered a major risk factor. >60 mg/dL: Considered a negative risk factor. LDL Calculated 62 <100 mg/dL 06/09/2023 2:23 PM T [facility] Comment: ATP III Classification of LDL Cholesterol: <100 mg/dL: Optimal 100 - 129 mg/dL: Near Optimal/Above Optimal 130 - 159 mg/dL: Borderline High 160 - 189 mg/dL: High >190 mg/dL: Very High Triglycerides 107 <150 mg/dL 06/09/2023 2:23 PM CDT [facility] Comment: ATP III Classification of Triglycerides: <150 mg/dL: Normal 150 - 199 mg/dL: Borderline High 200 - 400 mg/dL: High >500 mg/dL: Very High Blood BLOOD SPECIMEN / Unknown Lab Venipuncture / Unknown 06/09/2023 12:41 PM CDT 06/09/2023 1:47 PM CDT Diana MISHRA LAB - CHEMISTRY CHARLI CREWS [facility] [address] [place] [address], [facility] [phone] * EGD (03/18/2023 9:35 AM CDT) Report Endoscopy POC Endoscopy Department Report _ Patient Name: Sylvia Waldrop Procedure Date: 03/18/2023 9:35 AM Date of : 1965 Classification: Outpatient Gender: Female Ethnicity: or Race: White _ Providers: Edwin Dutton MD Referring MD: Mily Mcintosh MD; Ricardo Jiménez MD Procedure: Upper GI endoscopy Indications: Persistent vomiting of unknown cause Medications: See the Anesthesia note for documentation of the administered medications, Monitored Anesthesia Care Description of Procedure: After obtaining informed consent, the endoscope was passed under direct vision. Throughout the procedure, the patient's blood pressure, pulse, and oxygen saturations were monitored continuously. The Endoscope was introduced through the mouth, and advanced to the second part of duodenum. The upper GI endoscopy was accomplished without difficulty. The patient tolerated the procedure well. Findings: The esophagus was normal appearing. The esophagogastric landmarks were identified. The Z-line was regular. No esophagitis or Stephens's-like changes were present. One 5 mm distinct sessile polypoid lesion was found along the lesser curvature of the gastric body. The lesion was removed with a cold snare. Resection and retrieval were complete. To prevent bleeding after the polypectomy, one hemostatic clip was successfully placed at the resection site (DuraClip 11 mm, MR conditional). There was no bleeding at the end of the procedure. Few <5 mm fundic gland appearing polyps were found in the gastric fundus and body. The remainder of the stomach was normal appearing, including retroflexed views of the cardias and fundus. Random gastric biopsies were taken with a cold forceps for histology. The examined duodenum was normal appearing. Random biopsies were taken with a cold forceps for histology. Estimated Blood Loss: Estimated blood loss was minimal. Complications: No immediate complications. Impression: - Normal esophagus. - One 5 mm distinct polypoid lesion along the lesser curvature of the gastric body, removed with a cold snare, resected and retrieved followed by clip placement x1 for prophylaxis (DuraClip 11 mm, MR conditional). - Few <5 mm fundic gland appearing polyps in the gastric fundus and body. Otherwise normal stomach, random biopsies obtained. - Normal examined duodenum, random biopsies obtained. Moderate Sedation: . Recommendation: - Monitor for fevers, bleeding, pain. - Resume previous diet as tolerated. - Resume previous medications today. - Follow-up pathology / biopsy results. Further management accordingly. - Follow-up with the referring providers has been discussed with the patient/caregiver. - The potential complications and concerning symptoms/findings, including but not limited to early or delayed fevers, infection, pain, bleeding, perforation, were discussed with the patient/caregiver. Emergency contact information was provided. Attending Participation: I personally performed the entire procedure. Procedure Code(s): --- Professional --- 98410, Esophagogastroduod enoscopy, flexible, transoral; with removal of tumor(s), polyp(s), or other lesion(s) by snare technique 87574, 59, Esophagogastroduod enoscopy, flexible, transoral; with biopsy, single or multiple Diagnosis Code(s): --- Professional --- K31.7, Polyp of stomach and duodenum R11.15, Cyclical vomiting syndrome unrelated to migraine CPT copyright 2021 [employer]. All rights reserved. The codes documented in this report are preliminary and upon side seam machine operator review may be revised to meet current compliance requirements. Edwin Dutton MD 03/18/2023 10:08:07 AM Note Initiated On: 03/18/2023 9:35 AM Number of Addenda: [id number] [place] [address] PROVATION 03/18/2023 9:35 AM CDT Edwin Dutton MD GI PROCEDURE ORDERABLES [facility] [employer] * PROC FIBROSCAN (03/02/2023 4:14 PM CDT) Narrative Irineo Samuels MD - 03/02/2023 4:14 PM CDT Irineo Samuels MD 03/03/2023 8:30 AM Diagnosis: NAFLD RN verified patient not , no implanted devices and NPO for prior 3 hours. Procedure explained. Date of Exam: 03/02/2023 Liver Stiffness: (LSM, kPa) median: 11.6 IQR/Median% (ideally < 30%): 19% CAP (controlled attenuation parameter): 251 Technical Difficulty: None Ordering Provider: Dr. Mcintosh Phone Fax Fibroscan interpretation: I have personally reviewed the Fibroscan report and associated tracings. The calculated Liver Stiffness Measurement (LSM, kPa) indicates that: The probability of advanced liver fibrosis is: not assessable using Fibroscan due to variability of tracings. The loss of ultrasound signal, (controlled attenuation parameter, CAP [dB/m]), indicates that the probability of hepatic steatosis may be moderate. Irineo Munoz MD The following criteria are used to indicate the probability of advanced (stage 3-4) fibrosis: < 7.0 kPa: low 7.0-8.9 kPa: low to moderate 9.0-14.9 kPa: moderate 15-20 kPa: high > 20 kPa: very high Liver stiffness > 20 kPa is also associated with a high probability of complications of portal hypertension including varices and ascites. Liver stiffness > 50 kPa is associated with a high risk of variceal bleeding. These interpretations are based on the following published data: Miguel Angel PJ, Brandyn M, Wilda M, et al. Accuracy of FibroScan controlled attenuation parameter and liver stiffness measurement in assessing steatosis and fibrosis in patients with nonalcoholic fatty liver disease. Gastroenterology 2019;156:5677-7112. Melissa MS, Jasmina R, Van Veronika ML, et al. Vibration-controlled transient elastography to assess fibrosis and steatosis in patients with nonalcoholic fatty liver disease. Clin Gastroenterol Hepatol 2019;17:156-163. Note that scores have been developed that incorporate the Fibroscan liver stiffness measurement from large cohorts of patients with liver biopsies to further refine the ability of Fibroscan to identify patients with REARDON and advanced fibrosis. These include the FAST (Fibroscan-AST) score (Julio, 202) and the Agile3+ and Agile4 scores (John, 202). Julio TA, Van Natta ML, Richard M, Jean-Pierre A, et al. Validation of the accuracy of the FAST score for detecting patients with at-risk nonalcoholic steatohepatitis (REARDON) in a [place] cohort and comparison to other non-invasive algorithms. PLoS ONE (2021) 17: h7660611. John AJ, Natasha J, Mary ZM, et al. Enhanced diagnosis of advanced fibrosis and cirrhosis in individuals with NAFLD using FibroScan-based Agile scores. J Hepatol (2022) 78: 247-259. Fibroscan LSM can also be used with laboratory parameters without formulas to assess prognosis. According to the Baveno-VII criteria (Nobles, 202), Fibroscan LSM ?15 kPa plus a platelet count of ?[id number]/L rules out clinically significant portal hypertension (sensitivity and negative predictive value >90%) in patients with compensated advanced chronic liver disease. Nobles R, Jose J, Hector-Annel G, Larry T, Jerald C on behalf of the [facility] VII Faculty. [facility] VII--Renewing consensus in portal hypertension. J Hepatol (2021) 76: 959-974 Assessing the likelihood of advanced fibrosis in patients with indeterminate liver stiffness measurement (LSM) by Fibroscan (e.g., 8-15 kPa) can be improved by also calculating the FIB-4 score (Ynes et al. Hepatology Communications 2019;3:6790-3012) or NAFLD Fibrosis score (Pedraza et al. Clinical Gastroenterology and Hepatology 2019;17:8389-9951 using routine clinical data. Note: 1. Fibroscan cannot reliably identify earlier stages of fibrosis (ie distinguish F0 from F1 and F2) and thus a histologic stage cannot be predicted from the Fibroscan reading. 2. Liver stiffness can be increased by factors other than fibrosis including passive congestion, infiltrative processes, active alcoholism, recent moderate alcohol consumption in the 2 weeks before the exam, biliary obstruction and marked inflammation. The interpretation of the Fibroscan result provided above may not have taken such clinical factors into account. Disease etiology also influences Fibroscan cutoff values for fibrosis stages and the following cutoffs have been proposed (Betito et al, Clin Gastro Hepatol 2015; 13:27-36): Cutoffs for Stage 3 and Stage 4 fibrosis respectively: Hepatitis B: >9 and >11.7 kPa Hepatitis C: >9.5 and >12.5 kPa HCV-HIV: >11 and >14 kPa Cholestatic liver diseases: >10 and >17.9 kPa NAFLD/REARDON: >10 and >14 kPa CAP estimates of steatosis: normal <200 dB/m mild 200 to 250 dB/m moderate 250-290 dB/m substantial > 290 dB/m (Note that Fibroscan is not a quantitative measure of liver fat.) These criteria are estimates and may change as additional supporting data becomes available. (This additional interpretive data was last updated 12/27/22.) [email or web address] Mily Mcintosh MD PROCEDURE/MINOR SURG ICAL ORDERABLES * LA LIVER ELASTOGRAPHY (07/21/2022 2:31 PM SOILS ENGINEER) Narrative Mely Heebrt RN - 07/21/2022 2:31 PM SOILS ENGINEER Mely Hebert RN 07/23/2022 2:10 PM Diagnosis: Elevated liver enzymes RN verified patient not , no implanted devices and NPO for prior 3 hours. Date of Exam: 07/21/2022 Liver Stiffness: (LSM, kPa) median: 10.9 IQR (interquartile range): 1.6 IQR/Median% (ideally < 30%): 15% CAP (controlled attenuation parameter): 314 Technical Difficulty: None Ordering Provider: Dr. Palma Phone Fax Ursula Shea MD PROCEDURE/MINOR ZUNIGA RGICAL ORDERABLES * IRON + TIBC + FERRITIN (12/02/2021 1:03 PM CDT) Only the most recent of2 resultswithin the time period is included. [facility] Iron 115 45 - 160 mcg/dL [facility] TIBC 367 250 - 450 mcg/dL (calc) [facility] % Saturation 31 16 - 45 % (calc) [facility] Ferritin 59 16 - 232 ng/mL [facility] Comment: Test Performed at: [email or web address] [address] [place] [address] NICO WATSON DO,MPH Blood BLOOD SPECIMEN / Unknown 12/02/2021 1:03 PM CDT 12/02/2021 1:04 PM CDT Breanna DOSHI-[facility] - CH EMISTRY ORDERABLES [facility] [address] [place] [address] * (ABNORMAL) CBC W/O DIFFERENTIAL (12/02/2021 1:03 PM CDT) [facility] White Blood Cell Count 8.9 3.8 - 10.8 Thousand/u L [facility] RBC 5.00 3.80 - 5.10 Million/uL [facility] Hemoglobin 12.8 11.7 - 15.5 g/dL [facility] Hematocrit 39.2 35.0 - 45.0 % [facility] MCV 78.4(L) 80.0 - 100.0 fL [facility] MCH 25.6(L) 27.0 - 33.0 pg [facility] MCHC 32.7 32.0 - 36.0 g/dL [facility] RDW 14.8 11.0 - 15.0 % [facility] Platelet Count 247 140 - 400 Thousand/u L [facility] MPV 11.9 7.5 - 12.5 fL [facility] Comment: Test Performed at: [employer] [facility] [address] [place] [address] NICO WATSON DO,MPH Blood BLOOD SPECIMEN / Unknown 12/02/2021 1:03 PM CDT 12/02/2021 1:04 PM CDT Breanna Layton APVALERIANO-[facility] - HE MATOLOGY ORDERABLES [facility] [address] [place] [address] * ECHO COMPLETE (11/14/2021 12:06 PM CDT) Anatomical Region Laterality Modality Chest Echo 11/14/2021 11:0 0 AM CDT Narrative Procedure Note Mely Bermudez MD - 11/20/2021 Idania Hobson APRN-[facility] ECHOCARDIOGRAPHY RADIANT * Cardiopulmonary Exercise Test [facility] (11/07/2021 2:59 PM CDT) Impressions Nicholas Manley MD - 11/07/2021 2:59 PM CDT HISTORY Sylvia Waldrop is a 56 year old year old female undergoing cardiopulmonary exercise testing for evaluation of shortness of breath and possible asthma. Her height is 167 cm and weight 102 kg, with BMI of 36.5. The exercise test was performed on a treadmill, using a modified ACIP protocol. The patient tolerated a maximum workload of 2.4 mph at 0% grade, exercising for a total of 8 minutes and 30 seconds while breathing FiO2 21%. The patient's reason for stopping was primarily leg fatigue and hip discomfort. Patient reported that breathing had become more labored, but noted that she probably could have continued further if not for her hips. HEMODYNAMICS The resting HR was 82 bpm. The patient had sinus rhythm with first degree AV block and low QRS voltage. The peak HR was 102 bpm, or 63% of predicted at peak workload. The patient did not have any significant ST segment changes. Of note, a few of the patient's EKG leads fell off as patient was reaching peak activity. The machine interpreted these rhythms as bradycardia. Upon review of rhythm strips, patient actually had HRs in upper 90s and low 100s. Staff offered to repeat test for the patient, but patient was already fatigued and could not stay for repeat testing due to personal schedule. The patient's blood pressure was 102/72 at rest and 142/72 at maximal exertion. The O2 pulse was 3.4 mL/beat at rest and 8.7 mL/beat at maximal exertion which is lower than expected. Heart rate reserve is 61 (Normal < 15) bpm. Comments None VENTILATION & GAS EXCHANGE The patient's breath rate was 12 per minute with a minute ventilation of 6.9 L/min at rest. The breath rate increased to 36 per minute with a minute ventilation of 27.1 L/min at peak exercise. The peak ventilation was 34% of predicted maximal ventilation. Pulse oximetry showed oxygen saturation of 100% on 21% O2 at rest and 98 % at peak exercise without any need to increase FiO2. The VO2 was 8.7 mL/min/kg at peak exercise, or 36% of the predicted maximum, consistant with severe functional aerobic impairment. Anaerobic threshold was recorded during the recovery phase of the test, at 50.9% of predicted peak VO2. The AT-VO2 was 85%. The R value was 1.03 at peak exercise, suggesting submaximal effort. The Vd/Vt ratio was 24% at rest and decreased to 22% at peak exercise, which is a normal (< 0.3) response. The ventilatory reserve was 43.9L (normal > 11L). Comments None BLOOD GASES Not performed NINE-PANEL GRAPHS: interpretation of several of the graphs may be limited due to lead misplacement as described above. Panel 1, VE vs. WR: Shows an upsloping curvilinear relationship. Panel 2, HR & VO2/HR vs. WR: This graph cannot be properly interpreted due to erroneously recorded HR as described above. However, available data suggests a linear trajectory for HR vs. WR and an upsloping linear relationship for O2 pulse vs. WR. Panel 3, VO2 & VCO2 vs. WR: Both plots are upsloping and initially curvilinear but become more linear shortly after test is begun. As aerobic threshold is not reached with available data, a definite cross of VCO2 crosses from below to above the VO2 cannot be visualized. Panel 4, VE vs. VCO2: Shows an upsloping linear relationship until onset of respiratory compensation for lactic acidosis at the end of exercise, at which point the slope increases. Normal slope is 24.6 +/- 2.4. Panel 5, HR & VCO2 vs. VO2: HR/VO2 cannot be properly interpreted due to erroneously recorded HR as described above. However, available data suggests a linear upsloping trajectory for the slope. Aerobic threshold is not reached with available data, however VCO2/VO2 initially has a slope of ~1 and appears to become steeper towards the end of the test. Panel 6, VE/CO2 & VE/VO2 vs. WR: Both plots are generally curvilinear; aerobic threshold is not reached with available data. Panel 7, Vt vs. VE: Shows a curvilinear relationship that has not yet reached plateau prior to the end of test. Graph shows normal breathing reserve (>11 L/min). Panel 8, RER vs. WR: Shows a generally linear relationship that does not reach a maximal value >1.1 Panel 9, PETO2 & PETCO2 vs. WR: Aerobic threshold is not reached with available data, therefore true terence of PETO2 and peak of PETCO2 is difficult to assess. Comments: None FRACTIONAL EXHALED NITRIC OXIDE The measurement of fractional exhaled nitric oxide (FENO) was 42 ppb. PRE-EXERCISE SPIROMETRY: FVC: decreased FEV1: mildly decreased(70%- LLN). FEV1/FVC ratio is normal. Generally normal flow-volume loops POST-EXERCISE SPIROMETRY Pre-exercise: FVC 2.81L, FEV1 2.28L, FEV1/FVC 81.3% 5 min: FVC 2.52L, FEV1 2.03L, FEV1/FVC 80.8% 10 min: FVC 2.60L, FEV1 2.09L, FEV1/FVC 80.6% 15 min: FVC 2.41L, FEV1 2.00L, FEV1/FVC 82.9% 20 min: FVC 2.23L, FEV1 1.85L, FEV1/FVC 82.7% Post Bronchodilator: FVC 2.72L, FEV1 2.30L, FEV1/FVC 84.4% IMPRESSION Overall interpretation of the test is limited as patient was not able to reach peak exercise effort. However, available data shows: 1. This patient has severe functional aerobic impairment characterized by cardiac impairment vs deconditioning. Recommend Echo for further evaluation 2. High fractional exhaled nitric oxide. 3. Pre-exercise spirometry shows nonspecific ventilatory limitation 4. There is a significant difference in pre-exercise FVC and FEV1 when compared to post-exercise FVC and FEV1 5. When comparing FEV1 and FVC obtain post-bronchodilator administration to values obtained 20 minutes after exercise, there is a significant response to bronchodilator administration. Additional comments: Of note, a few of the patient's EKG leads fell off as patient was reaching peak activity. The machine interpreted these rhythms as bradycardia. Upon review of rhythm strips, the patient actually had HRs in upper 90s and low 100s. Staff offered to repeat test for the patient, but patient was already fatigued and could not stay for repeat testing due to personal schedule. Roxie Benitez DO Pulmonary / Critical Care Fellow Division of Pulmonary, Critical Care, & Sleep Medicine [facility] I have reviewed the above study and agree with the interpretation as listed above. Nicholas Manley MD Heddle Machine Operator of Pulmonary & Critical Care Medicine [facility] Pager [phone] Narrative Nicholas Manley MD - 11/07/2021 2:59 PM CDT Roxie Benitez DO 11/11/2021 11:06 AM Susan Pepe MD PFT ORDERABLES * C DIFFICILE TOXIN/GDH W REFLX TO PCR (10/15/2021 1:03 PM SOILS ENGINEER) C difficile Toxin/GDH w/Reflex to PCR [facility] Comment: CLOSTRIDIUM DIFFICILE TOXIN/GDH W/REFL TO PCR Micro Number: [id number] Test Status: Final Specimen Source: Stool Specimen Quality: Adequate GDH Antigen: Not Detected Toxin A and B: Not Detected COMMENT: No toxigenic C. difficile detected For additional information, please refer to [email or web address] (This link is being provided for informational/educational purposes only.) Test Performed at: [employer] [address] GRETEL ZACARIAS MD Stool STOOL SPECIMEN / Unknown 10/15/2021 1:03 PM SOILS ENGINEER 10/15/2021 1:04 PM SOILS ENGINEER Ursula Shea MD LAB - MICROBIOLOGY ORDERABLES Performing Organization Address [facility] de Phone Number [address] [address] * CULTURE STOOL PANEL (10/15/2021 1:03 PM SOILS ENGINEER) Campylobacter Antigen [facility] Comment: CAMPYLOBACTER SPP. AG,EIA Micro Number: [id number] Test Status: Final Specimen Source: Stool Specimen Quality: Adequate Campy Ag Result: Not Detected Reference Range: Not Detected Test Performed at: [employer] [address] GRETEL ZACARIAS MD EIA [facility] Comment: SHIGA TOXINS, EIA W/RFL TO E.COLI O157 CULTURE Micro Number: [id number] Test Status: Final Specimen Source: Stool Specimen Quality: Adequate Shiga Toxin: Not Detected Reference Range: Not Detected Culture [facility] Comment: SALMONELLA AND SHIGELLA, CULTURE Micro Number: [id number] Test Status: Final Specimen Source: Stool Specimen Quality: Adequate Result: No Salmonella or Shigella isolated Test Performed at: [employer] [address] GRETEL ZACARIAS MD Stool STOOL SPECIMEN / Unknown 10/15/2021 1:03 PM SOILS ENGINEER 10/15/2021 1:04 PM SOILS ENGINEER Ursula Shea MD LAB - MICROBIOLOGY ORDERABLES Performing Organization Address [facility] de Phone [place] [address] * LIPASE BLOOD (10/15/2021 1:03 PM SOILS ENGINEER) Only the most recent of3 resultswithin the time period is included. Lipase 35 7 - 60 U/L [facility] Comment: Test Performed at: [employer] [address] [address] NICO WATSON DO,MPH Blood BLOOD SPECIMEN / Unknown 10/15/2021 1:03 PM SOILS ENGINEER 10/15/2021 1:04 PM SOILS ENGINEER Ursula Shea MD LAB - CHEMISTRY OR DERABLES [address] [address] * (ABNORMAL) CULTURE URINE COMPREHENSIVE (10/15/2021 11:57 AM SOILS ENGINEER) Only the most recent of2 resultswithin the time period is included. Culture (A) [facility] Comment: CULTURE, URINE, SPECIAL Micro Number: [id number] Test Status: Final Specimen Source: Urine cathet Specimen Quality: Adequate Result: Greater than 100,000 CFU/mL of Klebsiella pneumoniae K.pneumoniae INT WATSON AMOX/CLAVULANATE S <=2 AMPICILLIN R 16 AMP/SULBACTAM S <=2 CEFAZOLIN NR <=4 2 CEFEPIME S <=1 CEFTRIAXONE S <=1 CIPROFLOXACIN S <=0.25 ERTAPENEM S <=0.5 GENTAMICIN S <=1 IMIPENEM S <=0.25 LEVOFLOXACIN S <=0.12 NITROFURANTOIN R 128 PIP/TAZOBACTAM S <=4 TOBRAMYCIN S <=1 TRIMETHOPRIM/SULFA S <=20 S=Susceptible I=Intermediate R=Resistant * = Not Tested NR = Not Reported NN = See Therapy Comments THERAPY COMMENTS Note 1: For infections other than uncomplicated UTI caused by E. coli, K. pneumoniae or P. mirabilis: Cefazolin is resistant if WATSON > or = 8 mcg/mL. (Distinguishing susceptible versus intermediate for isolates with WATSON < or = 4 mcg/mL requires additional testing.) Note 2: For uncomplicated UTI caused by E. coli, K. pneumoniae or P. mirabilis: Cefazolin is susceptible if WATSON <32 mcg/mL and predicts susceptible to the oral agents cefaclor, cefdinir, cefpodoxime, cefprozil, cefuroxime, cephalexin and loracarbef. Test Performed at: [employer] [address] GRETEL AZCARIAS MD Microbiology URINE SPECIMEN COLLECTION, CATHETERIZED / Unknown 10/15/2021 11:57 AM SOILS ENGINEER 10/16/2021 2:27 AM SOILS ENGINEER Jacklyn Sanabria MD LAB - MICROBIOLOGY O RDERABLES [facility] [address] [place] [address] * LA INSERT NON-INDWELLING BLADDER (10/15/2021 11:56 AM SOILS ENGINEER) Narrative Jacklyn Sanabria Che, MD - 10/15/2021 11:56 AM SOILS ENGINEER Jacklyn Sanabria Che, MD 10/15/2021 11:57 AM The patient was prepped with betadine (or with hibiclens or other antiseptic agent if allergic to topical iodine). She understood the rationale for the procedure and agreed to the procedure. A 14F short female catheter was then advanced into the urethra and urine was collected for bedside urinalysis as well as a urine culture and/or formal urinalysis as needed. The post void residual is as noted in the progress note, as are results of the dipstick taken. The patient tolerated the procedure well. Jacklyn Sanabria MD PROCEDURE/MINOR SURG ICAL ORDERABLES * (ABNORMAL) WET PREP - POINT OF CARE (AMB) [facility] (10/15/2021) pH Wet Prep Yeast Wet Prep Trichomonas Wet Prep Bacteria Wet Prep Comment:many clue cells Whiff Test BODY FLUID SPECIMEN / Unknown 10/15/2021 Jacklyn Sanabria MD LAB - POINT OF CARE ORDERABLES * (ABNORMAL) URINALYSIS AUTO - POINT OF CARE (AMB) [facility] (10/15/2021) Only the most recent of2 resultswithin the time period is included. Glucose UA neg Bilirubin UA POCT neg Ketones UA POCT neg Specific [place] UA 1.015 Blood Urine POCT neg pH UA 6.0 Protein UA neg Urobilinogen UA 0.2 Nitrite UA + WBC UA + Urine URINE / Unknown 10/15/2021 Jacklyn Sanabria MD LAB - POINT OF CARE ORDERABLES * COMPLETE PFT W/WO BRONCHODILATOR (09/24/2021 11:18 AM SOILS ENGINEER) Impressions Michael Barlow MD - 09/24/2021 11:18 AM SOILS ENGINEER [facility] DEPARTMENT OF PULMONARY, CRITICAL CARE, AND SLEEP MEDICINE PULMONARY FUNCTION TEST Please see technologist's comments mentioned in the report. INTERPRETATION: SPIROMETRY: FVC: normal FEV1: normal FEV1/FVC ratio is normal. BRONCHODILATOR RESPONSE: There is a positive response to bronchodilators FLOW-VOLUME LOOPS: Normal flow-volume loops LUNG VOLUMES: Lung volumes by body plethysmography show decreased total lung volume and decreased residual volume DLCO: Unadjusted for Hb and COHb is normal DLCO: Corrected for Hb and COHb is: Not performed AIRWAY RESISTANCE: The airway resistance is normal and the specific conductance is normal ARTERIAL BLOOD GAS ANALYSIS: not performed IMPRESSION: 1. Mild Restrictive Ventilatory Limitation 2. Normal uncorrected DLCO 3. There is a positive bronchodilator response 4. Compared with previous study on 08/01/21, there is no significant change in FEV1, FVC, TLC or DLCO. Annette Peter MD Pulmonary & Critical Care Fellow Division of Pulmonary, Critical Care and Sleep Medicine [facility] Pager: [phone] I have reviewed the test data and agree with Dr. Peter's interpretations. Michael Barlow MD 09/25/2021 Narrative Michael Barlow MD - 09/24/2021 11:18 AM SOILS ENGINEER Annette Peter MD 09/24/2021 2:23 PM Harshal Simpson MD RESPIRATORY THERAPY ORDERABLES * CT LUNG SCREEN LOW DOSE (09/24/2021 10:13 AM SOILS ENGINEER) Anatomical Region Laterality Modality Chest Computed Tomogra phy 09/24/2021 10:5 2 AM SOILS ENGINEER Impressions 09/24/2021 11:08 AM SOILS ENGINEER Impression: 1.5 mm pulmonary nodule in the [...] screening) Report drafted by Emily Jansen (resident) Dr. Jamaica Escalante M.D. have personally reviewed and interpreted this examination/study. This report was electronically signed by [place] SENIOR M.D. on 09/24/2021 11:08 AM . Narrative 09/24/2021 11:08 AM SOILS ENGINEER Procedure Information DATE: 09/24/2021 10:14 AM EXAMINATION: [...] . Harshal Simpson MD CT ORDERABLES * BRONCHIAL CHALLENGE WITH METHACHOLINE (08/01/2021 4:37 PM SOILS ENGINEER) Impressions Arik Daniels MD - 08/01/2021 4:37 PM SOILS ENGINEER [facility] DEPARTMENT OF PULMONARY, CRITICAL CARE, AND SLEEP MEDICINE METHACHOLINE CHALLENGE TEST Sylvia Youngolive Date of test: 08/01/2021 Noe Carbone MD INTERPRETATION Methacholine challenge test was performed with incremental doses of methacholine per protocol. There was a significant decrease noted in the FEV1 and there was a significant decrease in specific conductance. The PD20 was 314.3ug and PD35 is 171.4 ug. IMPRESSION 1. This is a positive methacholine challenge test showing borderline airway hyperreactivity. Clinical correlation is recommended. 2. Borderline bronchial hyper-responsiveness. 3. No prior test is available for comparison. Noe Carbone MD Pulmonary & Critical Care Fellow, PGY4 Division of Pulmonary, Critical Care and Sleep Medicine [facility] I have personally reviewed pulmonary function test data and finding. I concur with fellow's note. Arik Daniels MD Narrative Arik Daniels MD - 08/01/2021 4:37 PM SOILS ENGINEER Noe Carbone MD 08/03/2021 7:22 AM Franklin Castano MD PFT ORDERABLES * LA POLYSOM 6/>YRS CPAP 4/> PARM (06/19/2021 9:17 AM CDT) Narrative Jose Vargas MD - 06/19/2021 9:17 AM CDT Jose Vargas MD 06/19/2021 9:18 AM [facility] Accredited by the [place] [employer] [facility], First Floor [address] [place] [address] Telephone : [phone] Medical Records Patient Name: Sylvia Waldrop : 1965 Date of Study: 06/18/2021 Referring Physician: Dea Norman MD Type of Montage: Respiratory Scoring System: [facility] FULL NIGHT THERAPEUTIC POLYSOMNOGRAM INTERPRETATION Procedure: The polysomnogram was performed with a veterinary technologist in attendance. Central, occipital, and temporal EEG, EOG, submentalis, EMG, airflow via positive airway pressure, thoracoabdominal motion, anterior tibialis EMG, snore sensor, and pulse oximetry were monitored. Sleep stages, periodic limb movements, and EEG arousals were scored in 30-second epochs according to the AASM Scoring Manual. Apnea-hypopnea index was calculated using the recommended definition of hypopnea for scoring events. Data acquisition, collection, and scoring have been validated and clinically correlated. Sleep History: Ms. Sylvia Waldrop, a 56 year old female, was referred to the Sleep Disorders Clinic by Dea Norman MD for the evaluation of obstructive sleep apnea (ESTHELA). Current Outpatient Medications: ADMELOG 100 UNIT/ML vial, For use in insulin pump, max/average daily dose 90 units, Disp: 4 Each, Rfl: 11 albuterol HFA (PROVENTIL;VENTOLIN;PROAIR) 108 (90 Base) MCG/ACT inhaler, Inhale 2 (two) puffs by mouth every 4 hours as needed for Shortness of Breath, Wheezing or Cough, Disp: 1 g, Rfl: 4 ascorbic acid (VITAMIN C) 500 MG tablet, Take 1 (one) tablet by mouth once daily Take 1 tablet at the same time as your ferrous sulfate (iron tablet)., Disp: 90 tablet, Rfl: 3 aspirin (ASPIRIN) 81 MG tablet, Take 1 tablet by mouth once daily, Disp: 100 tablet, Rfl: 3 atorvastatin (LIPITOR) 80 MG tablet, Take 1 (one) tablet by mouth once daily, Disp: 90 tablet, Rfl: 2 Blood Glucose Monitoring Suppl (ONE TOUCH ULTRA 2) w/Device KIT, Use 1 Each as directed, Disp: 1 kit, Rfl: 0 budesonide-formoterol (SYMBICORT) 80-4.5 MCG/ACT inhaler, Inhale 2 (two) puffs by mouth 2 times daily, Disp: 10.2 g, Rfl: 5 citalopram (CELEXA) 40 MG tablet, TK ONE T PO QD., Disp: , Rfl: 2 cromolyn (CROLOM) 4 % ophthalmic solution, 1 drop 4X/day., Disp: , Rfl: dicyclomine (BENTYL) 10 MG capsule, TAKE ONE CAPSULE BY MOUTH FOUR TIMES DAILY NEEDED FOR ABDOMINAL PAIN, Disp: 120 capsule, Rfl: 11 diphenoxylate-atropine (LOMOTIL) 2.5-0.025 MG tablet, Take 1 tablet by mouth 3 times daily Take three times per day with meals scheduled, Disp: 90 tablet, Rfl: 3 ergocalciferol (DRISDOL) 1.25 MG (01154 UT) capsule, Take 1 (one) capsule by mouth every 7 days, Disp: 12 capsule, Rfl: 3 ferrous sulfate 325 (65 FE) MG tablet, Take 1 (one) tablet by mouth once daily Take one tablet at the same time as your Vitamin C (ascorbic acid)., Disp: 90 tablet, Rfl: 3 fluticasone propionate (FLONASE) 50 MCG/ACT nasal spray, , Disp: , Rfl: 0 gabapentin (NEURONTIN) 600 MG tablet, Take 1 (one) tablet by mouth 3 times daily, Disp: 270 tablet, Rfl: 3 insulin glargine (LANTUS) vial, Inject 45 (forty five) Units subcutaneously at bedtime For insulin pump back up, Disp: 2 mL, Rfl: 3 Insulin Pen Needle 32G X 4 MM MISC, 1 Each by Injection route once daily, Disp: 100 Each, Rfl: 11 Insulin Syringe-Needle U-100 26G X 1/2 1 ML MISC, Use 1 Each once daily As backup to insulin pump, Disp: 100 Each, Rfl: 3 isosorbide mononitrate CR 24hr (IMDUR) 120 MG tablet, TAKE 1 TABLET BY MOUTH EVERY DAY, Disp: 90 tablet, Rfl: 3 Lancet Devices (B-D LANCET DEVICE) MISC, Use 1 Each 4 times daily - before meals & nightly, Disp: 200 Each, Rfl: 11 liraglutide (VICTOZA) 18 MG/3ML pen, Inject 1.8 mg subcutaneously once daily, Disp: 6 Pen, Rfl: 3 lisinopril (PRINIVIL; ZESTRIL) 10 MG tablet, Take 1 (one) tablet by mouth once daily, Disp: 90 tablet, Rfl: 3 loratadine (CLARITIN) 10 MG tablet, Take 10 mg by mouth DAILY., Disp: , Rfl: metFORMIN (GLUCOPHAGE) 1000 MG tablet, Take 1 (one) tablet by mouth 2 times daily with morning and evening meal, Disp: 360 tablet, Rfl: 3 metoprolol tartrate (LOPRESSOR) 100 MG tablet, Take 1 (one) tablet by mouth 2 times daily, Disp: 180 tablet, Rfl: 2 montelukast (SINGULAIR) 10 MG tablet, Take 1 tablet by mouth once daily, Disp: 30 tablet, Rfl: 2 nitroGLYCERIN (NITROSTAT) 0.4 MG tablet, DISSOLVE 1 TABLET UNDER THE TONGUE EVERY 5 MINUTES NEEDED FOR CHEST PAINS. IF NO RELIEF AFTER 2 DOSES CALL 911., Disp: 100 tablet, Rfl: 2 omeprazole (PRILOSEC) 20 MG capsule, Take 2 (two) capsules by mouth daily before breakfast, Disp: 60 capsule, Rfl: 6 ondansetron (ZOFRAN) 4 MG tablet, TAKE 1 TABLET BY MOUTH EVERY 8 HOURS NEEDED FOR NAUSEA, Disp: 30 tablet, Rfl: 5 ONE TOUCH ULTRASOFT LANCETS MISC, Use 1 Each 4 times daily - before meals & nightly, Disp: 200 Each, Rfl: 11 ONETOUCH ULTRA TEST STRIPS test strip, Use 1 strip 4 times daily - before meals & nightly, Disp: 200 strip, Rfl: 11 QUEtiapine (SEROQUEL) 200 MG tablet, TK 1 T PO Q NIGHT HS, Disp: , Rfl: 0 simethicone (GAS-X) 80 MG tablet, Take 1 tablet by mouth 4 times daily as needed for Gas Pain, Disp: 90 tablet, Rfl: 0 SUMAtriptan (IMITREX) 25 MG tablet, TK 1 T PO PRF POON, Disp: , Rfl: 0 traZODone (DESYREL) 100 MG tablet, Take 100 mg by mouth., Disp: , Rfl: THERAPEUTIC STUDY Sleep Architecture: During this therapeutic [...] parasomnia was noted during this therapeutic study. IMPRESSION: CPAP at the optimal setting of 10 cmH2O was effective in ameliorating obstructive sleep apnea. Jose Vargas MD, [facility], [facility], [facility] Claim Agent, [facility] Professor of Internal Medicine Adjunct Heddle Machine Operator of Neurology Division of Pulmonary, Critical Care, and Sleep Medicine [facility] This note was electronically signed on 06/19/2021. CC: Dea Norman MD [address] Of [facility] [place] [address] Dea Norman MD Breanna A Dettenmeier APNP-STREET DEPARTMENT DISPATCHER PROCEDUR E/MINOR SURGICAL ORDERABLES * FOLATE (05/14/2021 11:55 AM CDT) [facility] Folate 9.4 ng/mL [facility] Comment: Reference Range Low: <3.4 Borderline: 3.4-5.4 Normal: >5.4 Test Performed at: [employer] [facility] [address] [address] [place] [address] NICO WATSON DO,MPH Blood BLOOD SPECIMEN / Unknown 05/14/2021 11:55 AM CDT 05/14/2021 11:55 AM CDT Breanna Layton APNP-STREET DEPARTMENT DISPATCHER LAB - CH EMISTRY ORDERABLES [facility] [address] [place] [address] * MRI BRAIN WO CONTRAST (03/22/2021 3:13 PM CDT) Anatomical Region Laterality Modality Head Magnetic Resonan ce 03/22/2021 3:37 PM CDT Impressions 03/22/2021 3:44 PM CDT IMPRESSION: 1.No evidence of acute intracranial findings. 2.Mild paranasal sinus disease and trace fluid signal in the left mastoid air cells. This report was electronically signed by RONY RICHARDSON on 03/22/2021 3:44 PM . Narrative 03/22/2021 3:44 PM CDT MRI BRAIN WO CONTRAST DATE: 03/22/2021 3:13 PM EXAMINATION: Magnetic resonance imaging (MRI) of the brain without contrast HISTORY: R41.3: Memory loss TECHNIQUE: MRI of the brain was performed without contrast according to standard protocol. COMPARISON: No prior study is available for comparison at the time of this dictation. FINDINGS: No evidence of acute or chronic hemorrhage is identified. No evidence of acute cerebral infarction is seen. Minimal prominence of the sylvian fissures and minimal prominence of the cerebral sulci and the cerebellar folia could represent subtle cerebral and cerebellar volume loss. The ventricles are of normal size, shape, and morphology. There is a suspected tiny cavum septum pellucidum. No mass effect or midline shift is seen. Rare cerebral hemispheric white matter FLAIR hyperintensities are a nonspecific finding. Brain parenchyma appears otherwise grossly unremarkable for the patient's stated age. The corpus callosum and sella appear normal. The posterior fossa, brainstem, and craniocervical junction appear normal. The visualized portions of the orbits appear grossly unremarkable. There is mild paranasal sinus disease. There is trace fluid signal in the left mastoid air cells. The remaining mastoid air cells appear grossly clear. Normal flow voids are demonstrated in the carotid arteries and basilar artery. The calvarium and visualized cervical spine appear normal. Procedure Note Rony Richardson MD - 03/22/2021 MRI BRAIN WO CONTRAST DATE: 03/22/2021 3:13 PM EXAMINATION: Magnetic resonance imaging (MRI) of the brain withoutcontrast HISTORY: R41.3: Memory loss TECHNIQUE: MRI of the brain was performed without contrast according to standard protocol. COMPARISON: No prior study is available for comparison at the time ofthis dictation. FINDINGS: No evidence of acute or chronic hemorrhage is identified. No evidence of acute cerebral infarction is seen. Minimal prominence of the sylvian fissures and minimal prominence of the cerebral sulci and the cerebellar folia could represent subtle cerebral and cerebellar volume loss. The ventricles are of normal size, shape, and morphology. There is asuspected tiny cavum septum pellucidum. No mass effect or midline shift is seen. Rare cerebral hemispheric white matter FLAIR hyperintensities are a nonspecific finding. Brain parenchyma appears otherwise grossly unremarkable for the patient's stated age. The corpus callosum and sella appear normal. The posterior fossa, brainstem, and craniocervicaljunction appear normal. The visualized portions of the orbits appear grossly unremarkable. There is mild paranasal sinus disease. There is trace fluid signal in the left mastoid air cells. The remaining mastoid air cells appear grossly clear. Normal flow voids are demonstrated in the carotid arteries and basilar artery. The calvarium and visualized cervical spine appear normal. IMPRESSION: 1.No evidence of acute intracranial findings. 2.Mild paranasal sinus disease and trace fluid signal in the leftmastoid air cells. This report was electronically signed by RONY RICHARDSON on03/22/2021 3:44 PM . Ant Rojas MD MR ORDERABLES * LA INSERT NON-INDWELLING BLADDER (02/15/2021 7:10 PM CDT) Narrative Jacklyn Sanabria Che, MD - 02/15/2021 7:10 PM CDT Jacklyn Sanabria Che, MD 02/15/2021 7:10 PM The patient was prepped with betadine (or with hibiclens or other antiseptic agent if allergic to topical iodine). She understood the rationale for the procedure and agreed to the procedure. A 14F short female catheter was then advanced into the urethra and urine was collected for bedside urinalysis as well as a urine culture and/or formal urinalysis as needed. The post void residual is as noted in the progress note, as are results of the dipstick taken. The patient tolerated the procedure well. Jacklyn Sanabria MD PROCEDURE/MINOR SURG ICAL ORDERABLES * CARDIAC EKG ORDER (11/16/2020 8:42 AM CDT) Only the most recent of2 resultswithin the time period is included. Narrative 11/16/2020 8:42 AM CDT Ordered by an unspecified provider. Scanned Document CARDIAC SERVICES ORD ERABLES * NM MYOCARD PERF REST STRESS (11/08/2020 1:27 PM CDT) Anatomical Region Laterality Modality Chest Nuclear Medicine 11/08/2020 2:11 PM CDT Impressions 11/08/2020 4:54 PM CDT Impression: 1. No evidence of myocardial infarction or stress-induced ischemia. 2. Normal left ventricular function with a calculated ejection fraction of 68%. This report was approved by Judah Mcgill on 11/08/2020 2:50 PM . I, Dr. JEFFREY SCHULTE M.D. have personally reviewed and interpreted this examination/study. This report was electronically signed by JEFFREY SCHULTE M.D. on 11/08/2020 4:54 PM . Narrative 11/08/2020 4:54 PM CDT Rest and Pharmacologic stress SPECT/CT myocardial imaging with gating- 1 day protocol History: 55 year oldfemalewith [facility] significant for microvascular disease and DM, HTN, HLD. Purpose for Referral is chest pain with typical and atypical features. COMPARISON: No similar prior. Correlation was made with chest CT on 02/20/2020. Procedure: The rest intravenous injection of 8.7 mCi of Tc-99m Myoview was administered IV in the left forearm. Myocardial perfusion imaging was performed 30 minutes post-injection. Preliminary rest EKG demonstrated no evidence of ischemic changes. At the conclusion of the rest imaging, pharmacologic stress testing was performed with 0.4 mg of Regadenoson administered IV in the left forearm over 10 seconds. No low-level exercise was performed in conjunction with the vasodilator infusion. The patient experienced no chest pain. Preliminary stress ECG demonstrated no evidence of ischemic changes. After approximately 10 seconds, the patient was injected with 23.5 mCi of Tc-99m Myoview IV in the left forearm. Gated SPECT/CT myocardial perfusion imaging was performed 30 minutes post-injection. Patient's BMI is 33.18 kg/m. Low-dose noncontrast CT of the region of the heart was performed for attenuation correction only. The heart rate at rest was 77 at baseline and increased to 100 beats per minute during the vasodilator infusion. The BP was 135/80 at rest and 131/76 after the stress procedure. A separate ECG report will be read by Cardiology. Findings: The image quality is technically adequate without significant motion or adjacent bowel activity. In the stress and rest SPECT/CT images, the left ventricle is normal in size. The stress SPECT/CT images show a normal pattern of myocardial perfusion. There is no significant change in the perfusion pattern at rest. Gated SPECT/CT images show normal myocardial thickening and normal wall motion. The calculated left ventricular ejection fraction is 68%. Low-dose CT within the visualized field of view demonstrates coronary/aortic wall atherosclerotic changes, below 0.5 cm right middle lung nodule unchanged from prior CT, left lower lung dependent atelectatic areas. Procedure Note Jeffrey Schulte MD - 11/08/2020 Rest and Pharmacologic stress SPECT/CT myocardial imaging with gating-1 day protocol History: 55 year oldfemalewith H significant for microvascular disease and DM, HTN, HLD. Purpose for Referral is chest pain with typical and atypical features. COMPARISON: No similar prior. Correlation was made with chest CT on 02/20/2020. Procedure: The rest intravenous injection of 8.7 mCi of Tc-99m Myoview was administered IV in the left forearm. Myocardial perfusion imaging was performed 30 minutes post-injection. Preliminary rest EKG demonstratedno evidence of ischemic changes. At the conclusion of the rest imaging, pharmacologic stress testing was performed with 0.4 mg of Regadenoson administered IV in the left forearm over 10 seconds. No low-levelexercise was performed in conjunction with the vasodilator infusion. The patient experienced no chest pain. Preliminary stress ECG demonstrated noevidence of ischemic changes. After approximately 10 seconds, the patient was injected with 23.5 mCi of Tc-99m Myoview IV in the left forearm.Gated SPECT/CT myocardial perfusion imaging was performed 30 minutes post-injection. Patient's BMI is 33.18 kg/m. Low-dose noncontrast CT of the region of the heart was performed for attenuation correctiononly. The heart rate at rest was 77 at baseline and increased to 100 beats per minute during the vasodilator infusion. The BP was 135/80 at rest and 131/76 after the stress procedure. A separate ECG report will be read by Cardiology. Findings: The image quality is technically adequate without significant motion or adjacent bowel activity. In the stress and rest SPECT/CT images, theleft ventricle is normal in size. The stress SPECT/CT images show a normal pattern of myocardial perfusion. There is no significant change in the perfusion pattern at rest. Gated SPECT/CT images show normal myocardial thickening and normal wall motion. The calculated left ventricular ejection fraction is 68%. Low-dose CT within the visualized field of view demonstrates coronary/aortic wall atherosclerotic changes, below 0.5 cm right middle lung nodule unchanged from prior CT, left lower lung dependentatelectatic areas. Impression: 1. No evidence of myocardial infarction or stress-induced ischemia. 2. Normal left ventricular function with a calculated ejection fractionof 68%. This report was approved by Judah Mcgill on 11/08/2020 2:50 PM . I, Dr. JEFFREY SCHULTE M.D. have personally reviewed and interpreted this examination/study. This report was electronically signed by JEFFREY SCHULTE M.D. on11/08/2020 4:54 PM . Idania Hobson MENTAL HEALTH CLINICIAN-[facility] ORDERABLES * (ABNORMAL) HDL CHOLESTEROL (07/04/2020 2:15 PM SOILS ENGINEER) HDL 37(L) >40 mg/dL 07/04/2020 2:53 PM SOILS ENGINEER [facility] Comment: ATP III Classification of HDL Cholesterol: <40 mg/dL: Considered a major risk factor. >60 mg/dL: Considered a negative risk factor. Blood BLOOD SPECIMEN / Unknown Lab Venipuncture / Unknown 07/04/2020 2:15 PM SOILS ENGINEER 07/04/2020 2:22 PM SOILS ENGINEER Madan Desai MD LAB - CHEMISTRY CHARLI GWENDOLYNDEANGELO [address] [address], [place] [phone] * CHOLESTEROL BLOOD (07/04/2020 2:15 PM SOILS ENGINEER) Cholesterol Total 125 <200 mg/dL 07/04/2020 2:53 PM SOILS ENGINEER [facility] Blood BLOOD SPECIMEN / Unknown Lab Venipuncture / Unknown 07/04/2020 2:15 PM SOILS ENGINEER 07/04/2020 2:22 PM SOILS ENGINEER Madan Desai MD LAB - CHEMISTRY [place] Performing Organization Address [facility] Co de Phone Number [address] [address], [place] [phone] * CT CHEST WO CONTRAST (02/20/2020 3:22 PM CDT) Anatomical Region Laterality Modality Chest Computed Tomogra phy 02/20/2020 3:33 PM CDT Impressions 02/23/2020 9:46 AM CDT IMPRESSION: 1. 5 mm pulmonary nodule in the right middle lobe is unchanged since CT from 2015 and is therefore considered benign. 2. Mild distal esophageal wall thickening, also seen on the prior exam from 2015. May represent reflux esophagitis. Recommend clinical correlation. Dictated by Ean Nelson MD (residential youth counselor). I, Dr. [place] SENIOR M.D. have personally reviewed and interpreted this examination/study. This report was electronically signed by [place] SENIOR M.D. on 02/23/2020 9:46 AM . Narrative 02/23/2020 9:46 AM CDT EXAMINATION: Computed tomography (CT) of the chest without contrast HISTORY: Lung nodule seen on prior scan from 05/06/2016. TECHNIQUE: CT of the chest was performed without contrast according to standard protocol. FINDINGS: Evaluation of visceral and vascular structures is degraded due to lack of intravenous contrast administration. There is a left-sided aortic arch. The aorta and main pulmonary artery are normal in course and caliber. The coronary arteries and aorta are atherosclerotic. The lungs are clear of focal consolidation. Linear atelectasis is noted in the right upper lobe.. No pleural effusion or focal pleural thickening is identified. There is no evidence of pneumothorax. A 5 mm pulmonary nodule in the right middle lobe is unchanged since 05/06/2016 and is considered benign (series 4 image 48). No new pulmonary nodules are present. The trachea is patent and midline. The heart size is normal. Trace amount of pericardial fluid is seen. Multiple subcentimeter mediastinal lymph nodes are seen. The patient is status post cholecystectomy. An 6 mm hepatic cyst is seen in hepatic segment 2. There is mild thickening of distal esophagus, also seen on prior exam from 2016. The remaining upper abdominal viscera appears normal. Bone windows demonstrate no suspicious lytic or blastic lesions. The visible osseous structures are intact. Procedure Note Carmiat Senior MD - 02/23/2020 EXAMINATION: Computed tomography (CT) of the chest without contrast HISTORY: Lung nodule seen on prior scan from 05/06/2016. TECHNIQUE: CT of the chest was performed without contrast according to standard protocol. FINDINGS: Evaluation of visceral and vascular structures is degraded due to lackof intravenous contrast administration. There is a left-sided aortic arch. The aorta and main pulmonary arteryare normal in course and caliber. The coronary arteries and aorta are atherosclerotic. The lungs are clear of focal consolidation. Linear atelectasis is notedin the right upper lobe.. No pleural effusion or focal pleural thickeningis identified. There is no evidence of pneumothorax. A 5 mm pulmonarynodule in the right middle lobe is unchanged since 05/06/2016 and is considered benign (series 4 image 48). No new pulmonary nodules are present. The trachea is patent and midline. The heart size is normal. Trace amount of pericardial fluid is seen. Multiple subcentimeter mediastinal lymph nodes are seen. The patient is status post cholecystectomy. An 6 mm hepatic cyst is seen in hepatic segment 2. There is mild thickening of distal esophagus, also seen on prior exam from 2016. The remaining upper abdominal viscera appears normal. Bone windows demonstrate no suspicious lytic or blastic lesions. The visible osseous structures are intact. IMPRESSION: 1. 5 mm pulmonary nodule in the right middle lobe is unchanged since CT from 2015 and is therefore considered benign. 2. Mild distal esophageal wall thickening, also seen on the prior exam from 2016. May represent reflux esophagitis. Recommend clinical correlation. Dictated by Ean Nelson MD (residential youth counselor). I, Dr. [place] SENIOR M.D. have personally reviewed and interpretedthis examination/study. This report was electronically signed by [place] SENIOR M.D. on 02/23/2020 9:46 AM . Harshal Simpson MD CT ORDERABLES * COMPLETE PFT W/WO BRONCHODILATOR (02/20/2020 2:00 PM CDT) Impressions Dana Sneed MD - 02/20/2020 2:00 PM CDT [facility] DEPARTMENT OF PULMONARY, CRITICAL CARE, AND SLEEP MEDICINE PULMONARY FUNCTION TEST Please see technologist's comments mentioned in the report. INTERPRETATION: SPIROMETRY: FVC: normal FEV1: normal FEV1/FVC ratio is normal. BRONCHODILATOR RESPONSE: There is no response to bronchodilator therapy however does not mean the patient wont benefit from bronchodilator therapy FLOW-VOLUME LOOPS: Normal flow-volume loops LUNG VOLUMES: Lung volumes by body plethysmography: TLC is reduced, RV is reduced, ERV is reduced DLCO: Unadjusted for Hb and COHb is normal DLCO: Corrected for Hb and COHb is: not able to perform AIRWAY RESISTANCE: The airway resistance is normal and the specific conductance is normal ARTERIAL BLOOD GAS ANALYSIS: not performed IMPRESSION: 1. Mild Restrictive Ventilatory Limitation 2. Normal unadjusted DLCO 3. No positive bronchodilator response, however this does not preclude the use of bronchodilators 4. There is no previous study available for comparison Champ Salmon MD Pulmonary & Critical Care Fellow Division of Pulmonary, Critical Care and Sleep Medicine [facility] ATTENDING PHYSICIAN ATTESTATION/DANA SNEED M.D.: I have personally reviewed and interpreted the above test and I have made the necessary changes if needed to the above interpretation. Pager: [phone] Narrative Dana Sneed MD - 02/20/2020 2:00 PM CDT Champ Salmon MD 02/20/2020 5:18 PM Harshal Simpson MD RESPIRATORY THERAPY ORDERABLES * PROC EKG IN CLINIC (10/10/2019 5:34 PM SOILS ENGINEER) Narrative Madison Camargo MD - 10/10/2019 5:34 PM SOILS ENGINEER Madison Camargo MD 10/10/2019 5:34 PM NSR Madison Camargo MD ECG ORDERABLES * (ABNORMAL) HEMOGLOBIN A1C (08/20/2019 11:39 AM SOILS ENGINEER) Only the most recent of2 resultswithin the time period is included. Hemoglobin A1c 9.6(H) 4.8 - 5.6 % [facility] INSURANCE BILL Comment: . Prediabetes: 5.7 - 6.4 Diabetes: >6.4 Glycemic control for adults with diabetes: <7.0 FASTING Blood BLOOD SPECIMEN / Unknown 08/20/2019 11:39 AM SOILS ENGINEER 08/20/2019 Narrative Resulting Agency Comment Lab Testing performed at: [facility] [address] [facility] [id number] Madan Desai MD LAB - CHEMISTRY CHARLI CREWS Performing Organization Address [facility] Co de Phone Number [facility] INSURANCE BILL [address] [place] [address] * CHLORIDE FECES (04/28/2019 2:30 PM CDT) Chloride Fecal 37 mmol/L 05/04/2019 2:06 AM CDT [facility] ([facility]) Comment: INTERPRETIVE INFORMATION: Fecal Chloride A reference interval has not been established for fecal specimens. Test developed and characteristics determined by [employer]. See Compliance Statement B: [email or web address] Stool STOOL SPECIMEN / Unknown Collection / Unknown 04/28/2019 2:30 PM CDT 04/28/2019 2:44 PM CDT Narrative [facility] ([facility]) - 05/04/2019 2:06 AM CDT Performed at: [facility] [address] [id number] Cloth Covered Helmet Puller: Aquilino Boles MD, Phone: [phone] Petr Raygoza MD LAB - BODY FLUID OR DERABLES Performing Organization Address City/[facility]/ZIP Co de Phone Number [facility]) [address] [place] [address], [facility] * SODIUM FECES (04/28/2019 2:30 PM CDT) [facility] Signature Sodium Feces 75 mmol/L 05/04/2019 2:06 AM CDT [facility] ([facility]) Comment: INTERPRETIVE INFORMATION: Fecal Sodium A reference interval has not been established for fecal specimens. Test developed and characteristics determined by [facility]. See Compliance Statement B: [employer] [facility] [facility] Stool STOOL SPECIMEN / Unknown Collection / Unknown 04/28/2019 2:30 PM CDT 04/28/2019 2:43 PM CDT Narrative [facility] ([facility]) - 05/04/2019 2:06 AM CDT Performed at: - [facility] [address] [place] [id number] Cloth Covered Helmet Puller: Aquilino Boles MD, Phone: [phone] Petr Raygoza MD LAB - BODY FLUID OR DERABLES [facility] [address] [place] [address], [facility] * NM GASTRIC EMPTYING (04/28/2019 12:44 PM CDT) Anatomical Region Laterality Modality Abdomen Nuclear Medicine 04/28/2019 1:59 PM CDT Impressions 04/28/2019 2:17 PM CDT IMPRESSION: Moderate gastroparesis (grade 2) based on 24% retention at 4 hours after ingestion of meal. Dictated by Alfredo Jones MD (Nuclear Medicine resident). This report was approved by Alfredo Jones on 04/28/2019 2:03 PM . I, Dr. ERICKSON REDD D.O. have personally reviewed and interpreted this examination/study. This report was electronically signed by ERICKSON REDD D.O. on 04/28/2019 2:17 PM . Narrative 04/28/2019 2:17 PM CDT Study: Solid Gastric Emptying Study Agent: 0.5 mCi of Tc- 99m- sulfur colloid mixed in scrambled egg. History: 54 year-old female with a history pertinent for DM, CAD and history of cholecystectomy who has been complaining of abdominal pain, nausea, vomiting and diarrhea. Today, she presents for Gastric Emptying study to rule out gastroparesis. Patient's height 168 cm; weight 222 lb. TECHNIQUE: The examination was performed after the ingestion of a standardized meal (scrambled egg substitute (120 g Egg Beater, 60 kcal, equivalent to the volume of 2 large eggs), two slices of bread (120 kcal), strawberry jam (30 g, 75 kcal), and water (120 ml).The meal has a caloric value of 255 kcal: 72% carbohydrate,24% protein, 2% fat and 2% fiber. The meal is labeled with 0.5 mCi of Sl-40i-jlvenae sulfur colloid. FINDINGS: After ingestion of solid meal, sequential images were obtained up to 4 hours. Immediate,1 hour, 2 hour and 4 hours after ingestion. The percent retention in the stomach is as follows: Immediate: 100% 1 hour: 68% (Normal range: 37 - 90% ). 2 hour: 53% (Normal range: 30 - 60%). 4 hour: 24% (Normal range: 0 - 10%). T1/2: 134 minutes (Upper limits 130 minutes). Severity of gastroparesis is as follows: (Grade 1 (mild): 11-20%, Grade 2 (moderate): 21 - 35%, Grade 3 (severe): 36-50%, Grade 4 (very severe): > 50%) Procedure Note Erickson Redd, - 04/28/2019 Study: Solid Gastric Emptying Study Agent: 0.5 mCi of Tc- 99m- sulfur colloid mixed in scrambled egg. History: 54 year-old female with a history pertinent for DM, CAD and history of cholecystectomy who has been complaining of abdominal pain, nausea, vomiting and diarrhea. Today, she presents for Gastric Emptying study to rule out gastroparesis. Patient's height 168 cm; weight 222 lb. TECHNIQUE: The examination was performed after the ingestion of a standardized meal (scrambled egg substitute (120 g Egg Beater, 60 kcal, equivalent to the volume of 2 large eggs), two slices of bread (120kcal), strawberry jam (30 g, 75 kcal), and water (120 ml).The meal has acaloric value of 255 kcal: 72% carbohydrate,24% protein, 2% fat and 2% fiber.The meal is labeled with 0.5 mCi of Nu-32d-foostol sulfur colloid. FINDINGS: After ingestion of solid meal, sequential images were obtained up to 4 hours. Immediate,1 hour, 2 hour and 4 hours after ingestion. The percent retention in the stomach is as follows: Immediate: 100% 1 hour: 68% (Normal range: 37 - 90% ). 2 hour: 53% (Normal range: 30 - 60%). 4 hour: 24% (Normal range: 0 - 10%). T1/2: 134 minutes (Upper limits 130 minutes). Severity of gastroparesis is as follows: (Grade 1 (mild): 11-20%, Grade 2 (moderate): 21 - 35%, Grade 3 (severe): 36-50%, Grade 4 (very severe): > 50%) IMPRESSION: Moderate gastroparesis (grade 2) based on 24% retention at 4 hours after ingestion of meal. Dictated by Alfredo Jones MD (Nuclear Medicine resident). This report was approved by Alfredo Jones on 04/28/2019 2:03 PM . I, Dr. ERICKSON REDD D.O. have personally reviewed and interpreted this examination/study. This report was electronically signed by ERICKSON REDD D.O. on04/28/2019 2:17 PM . Petr Raygoza MD NM ORDERABLES * PT-INR [facility] (08/12/2018 3:26 PM SOILS ENGINEER) Only the most recent of2 resultswithin the time period is included. PT 12.8 12.1 - 14.8 Seconds 08/12/2018 4:25 PM [facility] INR 1.0 See Comment 08/12/2018 4:25 PM [facility] Comment: The suggested therapeutic range for standard coumadin (warfarin) therapy is an INR of 2.0-3.0. For high-risk patients (Mechanical Mitral Valve Prosthesis, etc.), the suggested prophylactic therapeutic range is an INR of 2.5-3.5. Blood BLOOD SPECIMEN / Unknown Lab Venipuncture / Unknown 08/12/2018 3:26 PM SOILS ENGINEER 08/12/2018 3:50 PM SOILS ENGINEER Petr Raygoaz MD LAB - COAGULATION O RDERABLES Performing Organization Address City/[facility]/ZIP Co de Phone Number [facility] [address] [phone] * VITAMIN A (08/12/2018 3:26 PM SOILS ENGINEER) Vitamin A 34.0 20.1 - 62.0 ug/dL 08/16/2018 2:10 PM SOILS ENGINEER [facility] ([facility]) Comment: Please note reference interval change Reference intervals for vitamin A determined from [facility] internal studies. Individuals with vitamin A less than 20 ug/dL are considered vitamin A deficient and those with serum concentrations less than 10 ug/dL are considered severely deficient. This test was developed and its performance characteristics determined by [facility]. It has not been cleared or approved by the Food and Drug Administration. Blood BLOOD SPECIMEN / Unknown Lab Venipuncture / Unknown 08/12/2018 3:26 PM SOILS ENGINEER 08/12/2018 3:51 PM SOILS ENGINEER Narrative [facility] ([facility]) - 08/16/2018 2:10 PM SOILS ENGINEER Performed at: [address] [place] [address] [id number] Cloth Covered Helmet Puller: Saundra Cosme MD, Phone: [phone] Petr Raygoza MD LAB - CHEMISTRY ORD ERABLES Performing Organization Address City/[facility]/ZIP Co de Phone Number [facility] ([facility]) [address] [id number] * ECHO 2D ONLY WO COLOR OR DOPPLER (02/20/2017 2:25 PM CDT) Anatomical Region Laterality Modality Other Narrative 02/20/2017 2:25 PM CDT [place] [address] CARDIOLOGY 2-D & M-Mode Echocardiogram Report Color Flow Doppler Report Patients Name: Sylvia Chatterjee : 1965 Age: 52 y.o. Gender: female Referring Physician: Holly Lopez DO [address] [facility] [address] [place] [address] Ordering Physician: Primary Care Physician: Isa Sneed Date of Test: TAPE#: Winding Machine Operator: zora Height: Weight: BSA: Introduction: Sylvia Chatterjee is a 52 y.o. female presenting with chest pain. Indication: chest pain Chamber Measurements LV Internal Dimension Systole (cm): 2.8 cm LV Internal Dimension Diastole (cm): 4.9 cm Septal Thickness (cm): 65 cm Aortic Root Measurement (cm): 3.5 cm Left Atrium Measurement (cm): 4.4 cm LVOT Diameter (cm): 2.1 cm Ejection Fraction 60% Color Flow and Doppler Waveform Analysis Aortic Velocities: AV Max (m/s): 1.4 m/s LVOT max (m/s): 1.1 m/s Mitral Velocities: E (m/s): 0.9 m/s A (m/s): 0.8 m/s Tricuspid Velocities: Max Tricuspid Valve Velocity (m/s): 0.5 m/s PulmonicVelocities: Max Pulmonic Valve Velocity (m/s): 0.9 m/s OVERALL INTERPRETATION: - Normal left ventricular size and systolic function. There is concentric remodeling of the left ventricle. Ejection fraction is estimated to be 60%. - Normal right ventricular and systolic function. - Normal aortic valve structure and velocities. No aortic regurgitation. No aortic stenosis. - Normal mitral valve structure and velocities. No mitral regurgitation. - Normal LV diastolic function. - Normal tricuspid valve structure and velocities. No tricuspid regurgitation. Inadequate tricuspid regurgitation jet to estimate right ventricular systolic pressure. - Normal pulmonary valve structure and velocities. No pulmonary insufficiency or stenosis. - Normal left and right atrial sizes. Supervising Physician: Reading Physician: Tammy Redding MD Procedure Note Provider, MD Sloane - 01/29/2018 [place] [address] CARDIOLOGY 2-D & M-Mode Echocardiogram Report Color Flow Doppler Report Patients Name: Syvlia Chatterjee : 1965 Age: 52 y.o. Gender: female Referring Physician: Holly Lopez, DO [address] [facility] [place] [address] [place] [address] Ordering Physician: Primary Care Physician: Isa Sneed Date of Test: TAPE#: Winding Machine Operator: ds Height: Weight: BSA: Introduction: Sylvia Chatterjee is a 52 y.o. female presenting withchest pain. Indication: chest pain Chamber Measurements LV Internal Dimension Systole (cm): 2.8 cm LV Internal Dimension Diastole (cm): 4.9 cm Septal Thickness (cm): 65 cm Aortic Root Measurement (cm): 3.5 cm Left Atrium Measurement (cm): 4.4 cm LVOT Diameter (cm): 2.1 cm Ejection Fraction 60% Color Flow and Doppler Waveform Analysis Aortic Velocities: AV Max (m/s): 1.4 m/s LVOT max (m/s): 1.1 m/s Mitral Velocities: E (m/s): 0.9 m/s A (m/s): 0.8 m/s Tricuspid Velocities: Max Tricuspid Valve Velocity (m/s): 0.5 m/s PulmonicVelocities: Max Pulmonic Valve Velocity (m/s): 0.9 m/s OVERALL INTERPRETATION: - Normal left ventricular size and systolic function. There is concentricremodeling of the left ventricle. Ejection fraction is estimated to be60%. - Normal right ventricular and systolic function. - Normal aortic valve structure and velocities. No aortic regurgitation.No aortic stenosis. - Normal mitral valve structure and velocities. No mitralregurgitation. - Normal LV diastolic function. - Normal tricuspid valve structure and velocities. No tricuspidregurgitation. Inadequate tricuspid regurgitation jet to estimate rightventricular systolic pressure. - Normal pulmonary valve structure and velocities. No pulmonaryinsufficiency or stenosis. - Normal left and right atrial sizes. Supervising Physician: Reading Physician: Tammy Redding MD Russell Michelle MD ECHOCARDIOGRAPHY RA DIANT * EKG 12-LEAD (02/06/2017 3:59 PM CDT) Russell Michelle MD ECG ORDERABLES [facility] * (ABNORMAL) GLUCOSE ACCUCHECK (12/22/2016 8:54 AM CDT) Only the most recent of3 resultswithin the time period is included. [facility] Signature Glucose, Fingerstick 119(H) 70-115mg/d L mg/dL [facility] RALS (BEAKER) Comment:Property Specialist: JUAN Stout 12/22/2016 8:54 AM CDT Josy Mckenzie MD LAB - CHEMISTRY CHARLI CREWS [facility] SH[facility]LA ([place]) * GLUCOSE - POINT OF CARE (AMB) U (12/09/2016 3:30 PM CDT) Only the most recent of2 resultswithin the time period is included. Glucose POCT 398 mg/dL [facility] Capillary blood specimen (specimen) 12/09/2016 3:30 PM CDT Tamiko Cunningham MENTAL HEALTH CLINICIAN-STREET DEPARTMENT DISPATCHER LAB - POINT O F CARE ORDERABLES Performing Organization Address [facility] Co de Phone Number [facility] * (ABNORMAL) CULTURE DUODENAL ASPIRATE QUANT (08/01/2016 12:17 PM SOILS ENGINEER) Culture Quant-Duodenal VIRIDANS STREPTOCOCCI (A) [facility] Comment:Growth of - 35,000 c fu/ml Viridans Streptococci Duodenum PART OF DUODENUM / Unknown 08/01/2016 12:17 PM SOILS ENGINEER 08/01/2016 2:18 PM SOILS ENGINEER Latonia Hubbard MD LAB - MICROBIOLOGY O RDERAESTEBAN Performing Organization Address [facility] Co de Phone Number [address] [phone] * ACTH 60 MINUTES (05/30/2016 1:00 PM CDT) Cortisol 60 Min 25.4 >=20.0 mcg/dL [facility] Blood specimen (specimen) BLOOD SPECIMEN / Unknown 05/30/2016 1:00 PM CDT 05/30/2016 1:05 PM CDT Glory Chris MD LAB - CHEMISTRY CHARLI CREWS Performing Organization Address [facility] Co de Phone Number [address] [phone] * ACTH 30 MINUTES (05/30/2016 12:28 PM CDT) Cortisol 30 Min 21.3 >=20.0 mcg/dL [facility] Blood specimen (specimen) BLOOD SPECIMEN / Unknown 05/30/2016 12:28 PM CDT 05/30/2016 12:35 PM CDT Historical Provider LAB - CHEMISTRY O RDERABLES [address] [phone] * ACTH CORTISOL BASELINE (05/30/2016 11:25 AM CDT) Cortisol Baseline 6.8 No Reference Range Established mcg/dL [facility] Blood specimen (specimen) BLOOD SPECIMEN / Unknown 05/30/2016 11:25 AM CDT 05/30/2016 12:04 PM CDT Historical Provider LAB - CHEMISTRY O WENDY Performing Organization Address City/[facility]/ZIP Co de Phone Number [address] [phone] * ACTH (05/30/2016 11:25 AM CDT) Only the most recent of2 resultswithin the time period is included. ACTH 24.2 7.2 - 63.3 pg/mL [facility] ([place]) Comment:ACTH reference inter nisa for samples collected between 7 and 10 AM. Blood specimen (specimen) BLOOD SPECIMEN / Unknown 05/30/2016 11:25 AM CDT 05/30/2016 12:04 PM CDT Narrative [facility] - 06/02/2016 3:11 PM CDT Performed at: [address] [place] [address] [id number] Cloth Covered Helmet Puller: Esteban Limon PhD, Phone: [phone] Historical Provider MD LAB - CHEMISTRY O RDERABLES [facility]) * CT ABDOMEN PELVIS W CONTRAST (05/06/2016 10:53 PM CDT) Anatomical Region Laterality Modality Abdomen, Pelvis Other Impressions 05/07/2016 9:20 AM CDT IMPRESSION: 1. No acute process in the abdomen or pelvis. 2. Mild common duct dilatation up to 8 mm status post cholecystectomy. 3. Diverticulosis without evidence of diverticulitis. 4. Indeterminate 4 mm right middle lobe pulmonary nodule. If the patient has risk factors, follow up in one year is recommended. Report dictated by Osmin Lopez M.D. (resident).2 I, Dr. [place] SENIOR M.D. have personally reviewed and interpreted this examination/study. This report was electronically signed by [place] SENIOR M.D. on 05/07/2016 9:20 AM . Narrative 05/07/2016 9:20 AM CDT EXAMINATION: Computed tomography of the abdomen and pelvis with contrast HISTORY: Abdominal pain TECHNIQUE: Computed tomography of the abdomen and pelvis was performed following the uneventful administration of 100 mL Omnipaque 350 intravenous contrast according to standard protocol. FINDINGS: No prior study is available for comparison. A 4 mm pulmonary nodule in the right middle lobe (image 26, series 5) is indeterminate. The heart size is normal without pericardial effusion. Other than a 10 mm focal fat deposition in the medial aspect of hepatic segment 2 (image 60, series 5), the liver enhances normally. The gallbladder is surgically absent. No intrahepatic biliary ductal dilatation is seen. The common duct is mildly dilated up to 8 mm. The pancreas is normal. The spleen is normal. The adrenal glands are normal. Other than a 6 mm right upper pole cyst and a smaller hypoattenuating focus in the right interpolar kidney which is too small to characterize, the kidneys enhance symmetrically without evidence of hydronephrosis, hydroureter, or urolithiasis. The small and large bowel are normal in caliber and without evidence of obstruction. There is scattered colonic diverticulosis without evidence of diverticulitis. The right lower quadrant appendix is normal. No free intraperitoneal air or free fluid is identified. Subcentimeter mesenteric and retroperitoneal lymph nodes are present. The enhanced abdominal aorta is minimally atherosclerotic but normal in caliber. A retroaortic left renal vein is noted. The urinary bladder is normal. The uterus is surgically absent. The adnexa are not visualized. No free pelvic fluid is seen. Bone windows demonstrate no suspicious lytic or blastic lesions. Multilevel degenerative changes are present. Procedure Note Carmita Senior MD - 11/21/2017 EXAMINATION: Computed tomography of the abdomen and pelvis with contrast HISTORY: Abdominal pain TECHNIQUE: Computed tomography of the abdomen and pelvis was performedfollowing the uneventful administration of 100 mL Omnipaque 350intravenous contrast according to standard protocol. FINDINGS: No prior study is available for comparison. A 4 mm pulmonary nodule in the right middle lobe (image 26, series 5) isindeterminate. The heart size is normal without pericardial effusion. Other than a 10 mm focal fat deposition in the medial aspect of hepaticsegment 2 (image 60, series 5), the liver enhances normally. Thegallbladder is surgically absent. No intrahepatic biliary ductaldilatation is seen. The common duct is mildly dilated up to 8 mm. The pancreas is normal. The spleen is normal. Theadrenal glands are normal. Other than a 6 mm right upper pole cyst and asmaller hypoattenuating focus in the right interpolar kidney which is toosmall to characterize, the kidneys enhance symmetrically without evidence of hydronephrosis, hydroureter, orurolithiasis. The small and large bowel are normal in caliber and without evidence ofobstruction. There is scattered colonic diverticulosis without evidenceof diverticulitis. The right lower quadrant appendix is normal. No freeintraperitoneal air or free fluid is identified. Subcentimeter mesenteric and retroperitoneal lymph nodes arepresent. The enhanced abdominal aorta is minimally atherosclerotic but normal incaliber. A retroaortic left renal vein is noted. The urinary bladder is normal. The uterus is surgically absent. The adnexaare not visualized. No free pelvic fluid is seen. Bone windows demonstrate no suspicious lytic or blastic lesions.Multilevel degenerative changes are present. IMPRESSION IMPRESSION: 1. No acute process in the abdomen or pelvis. 2. Mild common duct dilatation up to 8 mm status post cholecystectomy. 3. Diverticulosis without evidence of diverticulitis. 4. Indeterminate 4 mm right middle lobe pulmonary nodule. If the patienthas risk factors, follow up in one year is recommended. Report dictated by Osmin Lopez M.D. (resident).2 I, Dr. [place] SENIOR M.D. have personally reviewed and interpreted thisexamination/study. This report was electronically signed by [place] SENIOR M.D. on05/07/2016 9:20 AM . Ricardo De La Paz MD CT ORDERABLES * DRUG ABUSE PANEL 10-20+ETHANOL URINE NO CONFIRM (05/06/2016 6:59 PM CDT) Amphetamines Screen Urine Negative Negative: < 1000 ng/mL [facility] Barbiturates Screen Urine Negative Negative: < 200 ng/mL [facility] Benzodiazepine Screen Urine Negative Negative: < 200 ng/mL [facility] Opiates Urine Negative Negative: < 300 ng/mL [facility] Cocaine Metabolites Urine Negative Negative: < 300 ng/mL [facility] Phencyclidine Screen Urine Negative Negative: < 25 ng/ml [facility] Cannabinoids Screen Urine Negative Negative: <50 ng/mL [facility] Methadone Screen Urine Negative Negative: < 300 ng/mL [facility] Urine specimen (specimen) 05/06/2016 6:59 PM CDT 05/06/2016 7:07 PM CDT Narrative [facility] - 05/06/2016 7:26 PM CDT The Urine Toxicology Screening Panel does not screen for Propoxyphene, Meprobamate, Carisoprodol, Trazodone, bxcn-fyd-zmxbyyk medications and/or volatiles (Acetone, Isopropanol, Methanol or Ethylene Glycol). Ethanol, Salicylate, Acetaminophen, Tricyclic Antidepressants and several therapeutic drugs may be individually assayed in serum or plasma specimen. Toxicology testing by the [facility] is an aid to medical diagnosis and treatment of patients. No documented chain of custody was maintained. Results are intended to be used for clinical purposes only. Du Gomez MD LAB - URINE CHEMISTR Y ORDERABLES [facility] [address] [phone] * URINALYSIS REFLEX TO MICROSCOPIC NO CULTURE (05/06/2016 6:59 PM CDT) Color UA Straw Straw, Yellow, Colorless, Light Yellow [facility] Clarity UA Clear Clear [facility] Specific [place] UA 1.002 1.001 - 1.030 [facility] pH UA 7.0 5.0 - 8.0 [facility] Protein UA Negative <=20 mg/dL [facility] Glucose UA Negative Negative mg/dL [facility] Ketone UA Negative Negative mg/dL [facility] Bilirubin UA Negative Negative mg/dL [facility] Blood UA Negative Negative [facility] Nitrite UA Negative Negative [facility] Leukocyte Esterase Negative Negative [facility] Urobilinogen UA <2.0 <2.0 mg/dL [facility] RBC UA <1 0 - 8 /HPF [facility] Bacteria UA Rare Rare, Occasional, None /HPF [facility] Squamous Epithelial Cells UA <1 0 - 1 /HPF [facility] Urine specimen (specimen) 05/06/2016 6:59 PM CDT 05/06/2016 7:07 PM CDT Du Gomez MD LAB - URINALYSIS ORD ERABLES Performing Organization Address City/[facility]/ZIP Co de Phone Number [facility] [address] [phone] * LAB HISTORICAL RESULTS-ONBASE (04/25/2016) Only the most recent of2 resultswithin the time period is included. 04/25/2016 Historical Provider LAB - CHEMISTRY O RDERABLES Performing Organization Address City/[facility]/ZIP Co de Phone Number [facility] [address] * TISSUE TRANSGLUTAMINASE AB IGA (04/24/2016 1:05 PM CDT) TTG Antibody IgA <2 0 - 3 U/mL [facility] (BEAKER) Comment: Negative 0 - 3 Weak Positive 4 - 10 Positive >10 Tissue Transglutaminase (tTG) has been identified as the endomysial antigen. Studies have demonstr- ated that endomysial IgA antibodies have over 99% specificity for gluten sensitive enteropathy. Blood specimen (specimen) BLOOD SPECIMEN / Unknown 04/24/2016 1:05 PM CDT 04/24/2016 1:09 PM CDT Narrative [facility] ([place]) - 04/26/2016 3:10 PM CDT Performed at: [address] [place] [address] [id number] Cloth Covered Helmet Puller: Esteban Limon PhD, Phone: [phone] Latonia Hubbard MD LAB - SEROLOGY ORDER RUDY Performing Organization Address City/[facility]/ZIP Co de Phone Number [facility] ([facility] * C-REACTIVE PROTEIN (04/24/2016 1:05 PM CDT) Pathologist [facility] C-Reactive Protein <0.5 <=0.5 mg/dL [facility] Blood specimen (specimen) BLOOD SPECIMEN / Unknown 04/24/2016 1:05 PM CDT 04/24/2016 1:09 PM CDT Latonia Hubbard MD LAB - CHEMISTRY ORDE RABDEANGELO Performing Organization Address City/[facility]/ZIP Co de Phone Number [address] [phone] * ERYTHROCYTE SEDIMENTATION RATE (04/24/2016 1:05 PM CDT) Erythrocyte Sedimentation Rate Westergren 5 0 - 20 MM/HR [facility] Blood specimen (specimen) BLOOD SPECIMEN / Unknown 04/24/2016 1:05 PM CDT 04/24/2016 1:08 PM CDT Latonia Hubbard MD LAB - HEMATOLOGY ORD ERABLES Performing Organization Address City/[facility]/ZIP Co de Phone Number [address] [phone] * IGA BLOOD (04/24/2016 1:05 PM CDT) IgA 178 87 - 534 mg/dL [facility] Blood specimen (specimen) BLOOD SPECIMEN / Unknown 04/24/2016 1:05 PM CDT 04/24/2016 1:09 PM CDT Latonia Hubbard MD LAB - CHEMISTRY CHARLI CREWS Performing Organization Address [facility]/ZIP Co de Phone Number [address] [phone] * HEPATITIS C ANTIBODY (04/24/2016 1:05 PM CDT) [facility] Hepatitis C Antibody Non-react sd Non-reac tive [facility] Comment: Hepatitis C Antibody screen indicates no [...] Latonia Hubbard MD LAB - CHEMISTRY CHARLI CREWS Performing Organization Address [facility] Co de Phone Number [address] [phone] * CULTURE STOOL+ E COLI SHIGA-LIKE TOXIN (04/24/2016 12:59 PM CDT) [facility] Culture Feces No Salmonella, Shigella, Yersinia, Campylobacter or Escherichia Coli 0157:H7 isolated. Negative for Shiga Toxin by Immunoassay. [facility] Stool specimen (specimen) STOOL SPECIMEN / Unknown 04/24/2016 12:59 PM CDT 04/24/2016 1:12 PM CDT Narrative [facility] - 04/28/2016 10:15 AM CDT Specimen Type->Stool Latonia Hubbard MD LAB - MICROBIOLOGY O RDERABLES Performing Organization Address [facility]/ZIP Co de Phone Number [address] [phone] * CLOSTRIDIUM DIFFICILE [facility] + TOXIN A+B (04/24/2016 12:59 PM CDT) C difficile Antigen Negative Negative [facility] C difficile Toxin Negative Negative [facility] Stool specimen (specimen) STOOL SPECIMEN / Unknown 04/24/2016 12:59 PM CDT 04/24/2016 1:12 PM CDT Narrative [facility] - 04/25/2016 12:29 PM CDT Specimen Type->Stool Latonia Hubbard MD LAB - MICROBIOLOGY O RDERABLES [place] [id number] [address] [phone] * CALPROTECTIN FECAL (04/24/2016 12:59 PM CDT) Calprotectin Fecal 82 0 - 120 ug/g [facility] Comment: Concentration Interpretation Follow-Up <16 - 50 ug/g Normal None >50 -120 ug/g Borderline Re-evaluate in 4-6 weeks >120 ug/g Abnormal Repeat as clinically indicated Stool specimen (specimen) STOOL SPECIMEN / Unknown 04/24/2016 12:59 PM CDT 04/24/2016 1:12 PM CDT Narrative [facility] ([place]) - 04/29/2016 3:12 PM CDT Performed at: [address] [place] [address] [id number] Cloth Covered Helmet Puller: Nico Corral MD, Phone: [phone] Latonia Hubbard MD LAB - BODY FLUID ORD ERABLES [facility] ([facility]) * (ABNORMAL) PANCREATIC ELASTASE FECES (04/24/2016 12:59 PM CDT) Pancreatic Elastase 1 114(L) >=201 ug/g [facility] ([facility]) Comment: INTERPRETIVE INFORMATION: Pancreatic Elastase 201 ug/g or greater .......... Normal 100-200 ug/g ................. Moderate to mild pancreatic insufficiency. 99 ug/g or less............... Severe exocrine pancreatic insufficiency. Stool specimen (specimen) STOOL SPECIMEN / Unknown 04/24/2016 12:59 PM CDT 04/24/2016 1:12 PM CDT Latonia Hubbard MD LAB - BODY FLUID ORD [facility] ([facility]) * FAT QUALITATIVE FECES RANDOM (04/24/2016 12:59 PM CDT) Fat Fecal - Neutral Normal Normal [facility] ([facility]) Fat Fecal - Split Normal Normal [facility] ([facility]) Comment: INTERPRETIVE INFORMATION: Fecal Fat Qualitative Neutral fats include the monoglycerides, diglycerides, and triglycerides while split fats are the free fatty acids that are liberated from them. Impaired synthesis or secretion of pancreatic enzymes or bile may cause an increase in neutral fats while an increase in split fats suggests impaired absorption of nutrients. Stool specimen (specimen) 04/24/2016 12:59 PM CDT 04/24/2016 1:12 PM CDT Latonia Hubbard MD LAB - BODY FLUID ORD [facility] ([facility]) Care Teams Paymaster Of Purses Relationship Specialty Start Date End Date Stella Sneed MD [address] [place] [phone] PCP - General Family Medicine 04/01/23 Luiza Fernandez MD [address] [place] [phone] Physician Endocrinology 03/12/23
--- OUTSIDE RECORDS SUMMARY | 2024-10-08 17:34 | XMS_ITS | Encounter Summary ---
Author Organization [facility] Address [address] [place] [address] Care Team Providers Care Correctional Food Service Supervisor Name Role Phone Luiza Fernandez MD Unavailable Stella Sneed MD Primary Care Provider [phone] Reason for Visit * Reason Comments Refill Request Encounter Details Date Type Department Care Team (Late st Contact Info) Description 10/07/2024 Refill [facility] - Endocrinology [address] [facility] [address] [place] [address] Luiza Fernandez MD [address] [facility] [address] [place] [address] Refill Request Social History Tobacco Use Types Packs/Day Years [...] Sex Assigned at Female 09/05/2021 1:34 PM PROCESSING SUPERVISOR Gender Identity Female 09/05/2021 1:34 PM PROCESSING SUPERVISOR Sexual Orientation Straight 09/05/2021 1: 34 PM PROCESSING SUPERVISOR documented as of this encounter Functional Status [...] Office Visit [facility] - Pulmonology [address] [place] [phone] Luis Peter MD [facility] PULMONARY DISEASE/[place] [address] 12/21/2024 2:20 PM CDT Office Visit [facility] - Endocrinology [address] [place] [phone] Joceline Reed MD [address] [place] [address] 12/29/2024 8:30 AM CDT Office Visit [facility] - GI [address] [place] [phone] 01/17/2025 1:00 PM CDT Office Visit [facility] - Neurology [address] [place] [address] [place] [phone] Yael Brock MD [address] [facility] [address]L [place] [phone] 2025 8:40 AM CDT Office Visit [facility] - Sleep Services [address] [place] [phone] Breanna Layton, APNP-POULTRY SEXER [address] [facility] 2L DIV OF PULMONARY/[place] [address] documented as of this encounter Goals Goal Patient Goal Type Associated Problems Recent Progress Patient-Stated? Author Medication Management General On track( 2:44 PM PROCESSING SUPERVISOR) Tammy Sanchez, RN Note: Expected end date: ongoing Interventions: Take all medications as prescribed Let your doctor know right away about any changes in your medications Make sure to request a refill of your medication at least one week prior to your last dose Safety General On track( 2:44 PM PROCESSING SUPERVISOR) Kylah Genao, RN Note: Expected end date: ongoing Interventions: Your nurse will assess your risk for falls/injury each visit Use appropriate and safe transfer methods Keep personal items within easy reach Use some light at night in your room Keep walking paths clutter free and clear documented as of this encounter Visit Diagnoses Not on filedocumented in this encounter Care Teams Correctional Food Service Supervisor Relationship Specialty Start Date End Date Stella Sneed MD [address] [place] [phone] PCP - General Family Medicine 04/01/23 Luiza Fernandez MD [address] [place] [phone] Physician Endocrinology 03/12/23 documented as of this encounter
--- OUTSIDE RECORDS SUMMARY | 2024-10-08 17:34 | XMS_ITS | Referral Summary ---
Author Organization [facility] Address [address] [place] [address] Care Team Providers Care [employer] Officer Name Role Phone Luiza Fernandez MD Unavailable Stella Sneed MD Primary Care Provider [phone] [facility],non-owned Affiliates and Associated Physician Practices is amultiple site organization consisting of ambulatory clinics and hospital sitesin [place], [place], [place] and [place]. This disclosure is being madepursuant to the Care Everywhere program and may not contain all information available regarding this patient. Last updated 18.[facility] Encounters Date Type Department Care Team Description 10/07/[address] [facility] - Endocrinology [address] [place] [address] Luiza Fernandez MD Refill Request 10/06/2024 8:30 AM RAILWAY SHUNTER Hospital Encounter [facility] CAT SCAN [address] [place] [phone] Michael Barlow MD 09/27/2024 Travel 09/27/2024 8:00 AM RAILWAY SHUNTER Office Visit [facility] - Sleep Services [address] [place] [address] Breanna Layton APNP-BULB PLANTER ESTHELA (obstructive sleep apnea) (Primary Dx); Sleep related hypoxia; Excessive daytime sleepiness; Chronic fatigue; Restless legs syndrome (RLS); Nocturia more than twice per night; Abnormal REM sleep; Grade II diastolic dysfunction; RBC microcytosis; Vitamin B6 deficiency; Copper deficiency; Chronic insomnia; Air leak; CPAP use counseling; Obesity (BMI 30-39.9) 09/21/2024 Refill [facility] - Endocrinology [address] [place] [phone] Maggie Lester MD Refill Request 09/16/2024 Orders Only [facility] - Neurology [address] [place] [phone] Yael Brock MD 09/16/2024 Refill [facility] - Endocrinology [address] [place] [phone] Buck Louise MD Refill Request 09/15/2024 Telephone [facility] - Pulmonology [address] [place] [phone] Luis Peter MD Results 09/13/2024 10:20 AM RAILWAY SHUNTER - 09/13/2024 11:59 PM RAILWAY SHUNTER Hospital Encounter [facility] LAB OP DRAW STATION [address] [place] [address] Aj Hagan MD Discharge Disposition: Home or Self Care 09/13/2024 Travel 09/13/2024 8:28 AM RAILWAY SHUNTER - 09/13/2024 10:19 AM [facility] Hospital Encounter [facility] EEG/EMG [address] [place] [address] Aj Hagan MD Discharge Disposition: Home or Self Care 09/01/2024 Orders Only [facility] - Neurology [address] [place] [phone] Yael Brock MD Low serum copper level 08/30/2024 11:45 AM RAILWAY SHUNTER - 08/30/2024 11:59 PM RAILWAY SHUNTER Hospital Encounter [facility] LAB OP DRAW STATION [address] [place] [address] Discharge Disposition: Home or Self Care 08/30/2024 Travel 08/30/2024 10:30 AM RAILWAY SHUNTER Office Visit [facility] - Neurology [facility], [place] [address] Yael Brock MD Diabetic peripheral autonomic neuropathy (HCC) (Primary Dx) 08/25/2024 1:06 PM RAILWAY SHUNTER Anesthesia Event [facility] ENDOSCOPY [address] [place] [address] Subhash Charles MD Schlarman, Nicholas C, MD 08/25/2024 12:00 PM RAILWAY SHUNTER - 08/25/2024 12:45 PM RAILWAY SHUNTER Surgery [facility] ENDOSCOPY [address] [place] [address] Ricardo Jiménez MD COLONOSCOPY SCREEN--miralax prep 08/25/2024 10:53 AM RAILWAY SHUNTER - 08/25/2024 2:19 PM RAILWAY SHUNTER Hospital Encounter [facility] DARRELL OP [address] [place] [address] Ricardo Jiménez MD Surgery General Discharge Disposition: Home or Self Care 08/23/2024 Refill [facility] - Endocrinology [address] [place] [address], [place] [address] Joceline Reed MD Refill Request 08/21/2024 Refill [facility] - Endocrinology [address] [place] [phone] Buck Louise MD Refill Request 08/11/2024 Refill [facility] - Endocrinology [address] [place] [address], [place] [address] Maggie Lester MD Refill Request 07/26/2024 Refill [facility] - Cardiology [address] [facility], [facility] [address] [place] [address] Diana Gonzalez, PA Refill Request 07/26/2024 Refill [facility] Endocrinology [address] [place] [phone] Buck Louise MD Refill Request 07/18/2024 Travel 07/12/2024 Refill [facility] Endocr[facility]ology [address] [place] [phone] Joceline [place] MD Refill Request 07/12/2024 Refill [facility] - Endocrinology [address] [place] [phone] Maggie Lester MD Refill Request 07/10/2024 Telephone [facility] - Pulmonology [address] [place] [phone] Luis Peter MD Results from Last 3 Months Allergies No known active allergies Medications * [...] tablet 2 08/22/20 22 Active blood glucose (SkypeUCH ULTRA TEST STRIPS) test stripIndications:T ype 2 diabetes mellitus with other specified complication, with long-term current use of insulin ([facility]) Use 1 (one) strip 4 times daily [...] long-term current use of insulin ([facility]) Take 1 (one) tablet by mouth once [...] SPASM 09/24/19 24 Active TRUEplus 5-Bevel Pen [place] 32G X 4 MM MISCIndications:Di abetic polyneuropathy [...] with long-term current use of insulin (HCC) USE 1 TO TEST FOUR TIMES A [...] and one-half) mg subcutaneously every 7 days 10/28/20 24 Active vitamin D, ergocalciferol, (Drisdol) 1.25 MG (87107 UT) capsule TAKE ONE CAPSULE BY MOUTH EVERY SEVEN DAYS 4 capsule 2 07/25/20 24 Active metoprolol tartrate IR (Lopressor) 100 MG tablet TAKE 1 TABLET BY MOUTH TWICE A DAY 180 tablet 3 07/29/20 24 Active Lantus SoloStar penIndications:Mercedes betic polyneuropathy associated with type 2 diabetes mellitus (HCC) INJECT 10 UNITS UNDER THE SKIN ONCE [...] long-term current use of insulin ([facility]) TAKE 1 TABLET BY MOUTH TWICE A [...] long-term current use of insulin ([facility]) Use 1 Each once daily As backup to insulin pump 100 Each 3 02/07/20 21 025 Discontinued(IZEA Clean-Up) Blood Glucose Monitoring Suppl ([employer] TOUCH ULTRA 2) w/Device KITIndications:Typ e 2 diabetes mellitus with other specified complication, with long-term current use of insulin (HCC) Use 1 Each as directed 1 kit 03/05/20 23 025 Discontinued(IZEA Clean-Up) empagliflozin (Jardiance) 25 MG tabletIndications: Diabetic [...] daily. Continue ASA, statin, lisinopril and Metoprolol. Immunizations Name Administration Dates Next Due Covid Moderna primary monova lent 12+ yr 0.5mL 01/11/2022,02/05/2021,01/31/2021 FLU VACCINE TRI IIV3 SPLIT PF IM (FLUVIRIN) 11/2016 INFLUENZA VACCINE, QUADR. (F LUZONE; FLULAVAL; FLUARIX; AFLURIA QUADRIVALENT; 6MO+), 0.5 ML (IIV4) 06/01/2019 PNEUMOCOCCAL PCV20 CONJ VAC IM 03/31/2024 iNFLUENZA VACCINE, RECOM-POON, QUADR. (FLUBLOCK QUADRIVALENT; 18Y+) (RIV4) 08/01/2021,06/06/2020 Social History Tobacco Use Types Packs/Day Years [...] Sex Assigned at Female 09/05/2021 1:34 PM RAILWAY SHUNTER Gender Identity Female 09/05/2021 1:34 PM RAILWAY SHUNTER Sexual Orientation Straight 09/05/2021 1: 34 PM RAILWAY SHUNTER Last Filed Vital Signs Vital Sign Reading Time Taken Comments Blood Pressure 113/81 09/27/2024 9:11 AM RAILWAY SHUNTER Pulse 69 09/27/2024 9:11 AM RAILWAY SHUNTER Temperature 36.7 C (98 F) 08/25/2024 1:42 PM RAILWAY SHUNTER Respiratory Rate 16 08/25/2024 2:05 PM RAILWAY SHUNTER Oxygen Saturation 98% 08/25/2024 2:05 PM RAILWAY SHUNTER Inhaled Oxygen Concentration - - Weight 84.8 kg (187 lb) 09/27/2024 9:11 AM RAILWAY SHUNTER Height 167.6 cm (5' 6 ) 09/27/2024 9:11 AM RAILWAY SHUNTER Body Mass Index 30.18 09/27/2024 9:11 AM RAILWAY SHUNTER Functional Status Functional Status Response Date of [...] person have difficulty concentrating/remembering/making decisions? No 08/25/2024 Plan of Treatment Upcoming Encounters Date Type Department Care Team (Late st Contact Info) Description 11/03/2024 4:00 PM CDT Office Visit [facility] - Pulmonology [address] [place] [phone] Luis Peter MD [address] [facility] PULMONARY DISEASE/[place] [phone] 12/21/2024 2:20 PM CDT Office Visit [facility] - Endocrinology [address] [place] [address], [place] [phone] Joceline [place] MD [address] [place] [address] 12/29/2024 8:30 AM CDT Office Visit [facility] - GI [address] [place] [address], [place] [phone] 01/17/2025 1:00 PM CDT Office Visit [facility] - Neurology [address] [place] [address], [place] [phone] Yael Brock MD [address] [place] [address] [address] [place] [phone] 2025 8:40 AM CDT Office Visit [facility] - Sleep Services [facility] [place] [phone] Breanna Layton APNP-BULB PLANTER [address] [place] [address] 2L DIV OF PULMONARY/[place] [address] Goals Goal Patient Goal Type Associated Problems Recent Progress Patient-Stated? Author Medication Management General On track(11/04/2 024 2:44 PM RAILWAY SHUNTER) Tammy Sanchez, RN Note: Expected end date: ongoing Interventions: Take all medications as prescribed Let your doctor know right away about any changes in your medications Make sure to request a refill of your medication at least one week prior to your last dose Safety General On track( 2:44 PM RAILWAY SHUNTER) Kylah Genao RN Note: Expected end date: ongoing Interventions: Your nurse will assess your risk for falls/injury each visit Use appropriate and safe transfer methods Keep personal items within easy reach Use some light at night in your room Keep walking paths clutter free and clear Procedures Procedure Name Priority Date/Time Associated Diagnosis Comments PROTEIN ELECTROPHORESIS URINE RANDOM PANEL 09/16/2024 12:05 PM RAILWAY SHUNTER PROTEIN ELECTROPHORESIS URINE RANDOM Routine 09/13/2024 10:36 AM RAILWAY SHUNTER Diabetic peripheral autonomic neuropathy (HCC) EEG Routine 09/13/2024 8:49 AM RAILWAY SHUNTER Diabetic peripheral autonomic neuropathy (HCC) VITAMIN B12 Routine 08/30/2024 12:26 PM RAILWAY SHUNTER Diabetic peripheral autonomic neuropathy (HCC) CBC W AUTO DIFFERENTIAL Routine 08/30/2024 12:26 PM RAILWAY SHUNTER Moderate persistent asthma without complication (HCC) IMMUNOSCORE IGE INTERP Routine 08/30/2024 12:17 PM RAILWAY SHUNTER Moderate persistent asthma without complication (HCC) COPPER BLOOD Routine 08/30/2024 12:17 PM RAILWAY SHUNTER Diabetic peripheral autonomic neuropathy (HCC) VITAMIN E Routine 08/30/2024 12:17 PM RAILWAY SHUNTER Diabetic peripheral autonomic neuropathy (HCC) VITAMIN B6 Routine 08/30/2024 12:17 PM RAILWAY SHUNTER Diabetic peripheral autonomic neuropathy (HCC) IGE BLOOD Routine 08/30/2024 12:17 PM RAILWAY SHUNTER Moderate persistent asthma without complication (HCC) ALLERGEN RESPIRATORY PNL REGION 8 ([place]) Routine 08/30/2024 12:17 PM RAILWAY SHUNTER Moderate persistent asthma without complication (HCC) PROTEIN ELECTROPHORESIS BLOOD Routine 08/30/2024 12:17 PM RAILWAY SHUNTER Diabetic peripheral autonomic neuropathy (HCC) PATHOLOGY TISSUE Routine 08/25/2024 1:24 PM RAILWAY SHUNTER Screen for colon cancer ENDOSCOPY, COLON, SCREENING Routine 08/25/2024 1:09 PM RAILWAY SHUNTER MS COLOREC CANC SCRN,SCOPY NOT HI RISK 08/25/2024 1:01 PM RAILWAY SHUNTER Screen for colon cancer Special Needs Message Received: Today Mily Mcintosh MD [facility] Schedulers - Endoscopy Pool Hi, We would like to schedule the above [...] POINT OF CARE Routine 08/25/2024 12:00 PM RAILWAY SHUNTER COMPREHENSIVE METABOLIC PANEL Routine 10/13/2023 12:55 PM RAILWAY SHUNTER Diabetic polyneuropathy associated with type 2 diabetes mellitus (HCC) HEMOGLOBIN A1C - POINT OF CARE (AMB) [facility] Routine 10/13/2023 11:33 AM RAILWAY SHUNTER Diabetic polyneuropathy associated with type 2 diabetes mellitus (HCC) MICROALB/CREAT RATIO URINE RANDOM PANEL Routine 06/09/2023 12:44 PM CDT Type 2 diabetes mellitus with hyperglycemia, with long-term current use of insulin (HCC) CT LUNG SCREEN LOW DOSE Routine 09/24/2021 10:13 AM RAILWAY SHUNTER Ex-smoker HEPATITIS C ANTIBODY Routine 04/24/2016 1:05 PM CDT from Last 3 Months or Most Recently Relevant to Health Maintenance Results * (ABNORMAL) PROTEIN ELECTROPHORESIS URINE RANDOM PANEL (09/16/2024 12:05 PM RAILWAY SHUNTER) Creatinine Urine 33 20 - 275 mg/dL [...] % [facility] Alpha-1 Globulin 0 % [facility] Ftlex-2-Tohymdrh 0 % [facility] Beta-Globulin 0 % [facility] [...] ordered. REPORT COMMENT: FASTING:YES Test Performed at: [facility] [address] [place] [address] GRETEL ZACARIAS MD 09/16/2024 12:0 5 PM RAILWAY SHUNTER 09/16/2024 12:06 PM RAILWAY SHUNTER Yael Brock MD LAB - URINE CHEMISTR Y ORDERABLES [facility] [address] [place] [address] * PROTEIN ELECTROPHORESIS URINE RANDOM (09/13/2024 10:36 AM RAILWAY SHUNTER) Pathologist [facility] Interpretation Urine PE See Comment Normal Pattern 09/15/2024 2:59 PM RAILWAY SHUNTER [facility] Comment: Urine protein electrophoresis shows a band corresponding to albumin with small amounts of other nonspecific proteinuria. No monoclonal immunoglobulins detected. Felipa Myles PhD, [facility] Clinical Orthopaedic Physician Assistant spectrographer Protein Urine <7 Not Established mg/dL 09/15/2024 2:59 PM RAILWAY SHUNTER [facility] Urine URINE SPECIMEN OBTAINED BY CLEAN CATCH PROCEDURE / Unknown Collection / Unknown 09/13/2024 10:36 AM RAILWAY SHUNTER 09/13/2024 11:22 AM RAILWAY SHUNTER Yael Brock MD LAB - URINE CHEMISTR Y ORDERABLES [address] [address], [facility] [phone] * EEG (09/13/2024 8:49 AM RAILWAY SHUNTER) Narrative jA Hagan MD - 09/13/2024 8:49 AM RAILWAY SHUNTER Aj Hagan MD 09/13/2024 11:34 AM EEG [...] ONE TABLET BY MOUTH DAILY blood glucose (ONETOUCH ULTRA TEST STRIPS) test strip Use 1 [...] (one) tablet by mouth TRUEplus 5-Bevel Pen [place] 32G X 4 MM [facility] USE TO INJECT SUBCUTANEOUSLY DAILY Trulicity 1.5 MG/0.5ML injection Inject 1.5 (one and one-half) mg subcutaneously every 7 days vitamin D, ergocalciferol, (Drisdol) 1.25 MG (92925 UT) capsule TAKE ONE CAPSULE BY MOUTH [...] (ABNORMAL) CBC W/ DIFFERENTIAL (08/30/2024 12:26 PM [facility]) WBC 9.5 4.0 - 10.7 x10E9/L 08/30/2024 12:45 PM [facility] RBC Count 5.09 3.90 - 5.20 x10E12/L 08/30/2024 12:45 PM [facility] Hemoglobin 12.6 11.9 - 15.8 g/dL 08/30/2024 12:45 PM [facility] Hematocrit 39.3 34.8 - 46.1 % 08/30/2024 12:45 PM [facility] MCV 77.2(L) 80.0 - 98.0 fL 08/30/2024 12:45 PM [facility] MCH 24.8(L) 26.7 - 33.6 pg 08/30/2024 12:45 PM [facility] MCHC 32.1 31.7 - 36.3 g/dL 08/30/2024 12:45 PM [facility] RDW-CV 14.5 11.3 - 14.8 % 08/30/2024 12:45 PM [facility] Platelet Count 224 150 - 420 x10E9/L 08/30/2024 12:45 PM [facility] MPV 11.7(H) 7.8 - 11.4 fL 08/30/2024 12:45 PM [facility] Neutrophil % 69.7 41.0 - 74.0 % 08/30/2024 12:45 PM [facility] Lymphocyte % 17.1 17.0 - 47.0 % 08/30/2024 12:45 PM [facility] Monocyte % 7.3 3.0 - 11.0 % 08/30/2024 12:45 PM [facility] Eosinophil % 4.8 0.0 - 7.0 % 08/30/2024 12:45 PM [facility] Basophil % 0.8 0.0 - 1.6 % 08/30/2024 12:45 PM [facility] Immature Granulocytes % 0.3 0.0 - 1.0 % 08/30/2024 12:45 PM [facility] Neutrophil Absolute 6.60 1.60 - 7.50 x10E9/L 08/30/2024 12:45 PM [facility] Lymphocyte Absolute 1.62 1.00 - 4.40 x10E9/L 08/30/2024 12:45 PM [facility] Monocyte Absolute 0.69 0.15 - 1.00 x10E9/L 08/30/2024 12:45 PM [facility] Eosinophil Absolute 0.45 0.00 - 0.60 x10E9/L 08/30/2024 12:45 PM [facility] Basophil Absolute 0.08 0.00 - 0.13 x10E9/L 08/30/2024 12:45 PM [facility] Blood BLOOD SPECIMEN / Unknown Lab Venipuncture / Unknown 08/30/2024 12:26 PM RAILWAY SHUNTER 08/30/2024 12:27 PM RAILWAY SHUNTER Michael Barlow MD LAB - HEMATOLOGY ORD ERABLES [address] [address], [facility] [phone] * VITAMIN B12 (08/30/2024 12:26 PM RAILWAY SHUNTER) Pathologist [facility] Vitamin B12 491 213 - 816 pg/mL 08/30/2024 1:30 PM RAILWAY SHUNTER [facility] Blood BLOOD SPECIMEN / Unknown Lab Venipuncture / Unknown 08/30/2024 12:26 PM RAILWAY SHUNTER 08/30/2024 12:27 PM RAILWAY SHUNTER Yael Brock MD LAB - CHEMISTRY CHARLI CREWS [address] [address], [facility] [phone] * IMMUNOSCORE IGE INTERP (08/30/2024 12:17 PM RAILWAY SHUNTER) Pathologist [facility] Immunocap Score See Note 3:58 PM RAILWAY SHUNTER [facility] ([facility]) Comment: REFERENCE INTERVAL: Allergen, Interpretation Less than [...] clinical allergy or even anaphylaxis. Performed By: [facility] [address] [place] [address] Business Project Analyst: Benjamin Barnett MD, PhD CLIA Number: [id number] Blood BLOOD SPECIMEN / Unknown Lab Venipuncture / Unknown 08/30/2024 12:17 PM RAILWAY SHUNTER 08/30/2024 12:17 PM RAILWAY SHUNTER Michael Barlow MD LAB - SEROLOGY ORDER RUDY [facility]) [address] [place] [address] * VITAMIN E (08/30/2024 12:17 PM RAILWAY SHUNTER) Vitamin E Alpha Tocopherol 7.9 5.5 - 18.0 mg/L 09/02/2024 3:57 PM RAILWAY SHUNTER [facility] Backtrace I/O ([facility]) Comment: This test was developed and its performance characteristics determined by [facility]. It has not been cleared or approved by the [place] Food and Drug Administration. This test was performed in a CLIA certified laboratory and is intended for clinical purposes. Vitamin E Gamma Tocopherol 1.4 0.0 - 6.0 mg/L 09/02/2024 3:57 PM RAILWAY SHUNTER [facility] ([facility]) Comment: Performed By: [facility] [address] [place] [address] Business Project Analyst: Benjamin Barnett MD, PhD CLIA Number: [id number] Blood BLOOD SPECIMEN / Unknown Lab Venipuncture / Unknown 08/30/2024 12:17 PM RAILWAY SHUNTER 08/30/2024 12:17 PM RAILWAY SHUNTER Yael Brock MD LAB - CHEMISTRY ORDE ELEONORA [facility] Organization Address City/State/ZIP Co de Phone Number [facility]) [address] [place] [address] * (ABNORMAL) VITAMIN B6 (08/30/2024 12:17 PM RAILWAY SHUNTER) Pathologist [facility] Vitamin B6 18.9(L) 20.0 - 125.0 nmol/L 09/02/2024 6:31 AM RAILWAY SHUNTER [facility] ([facility]) Comment: INTERPRETIVE INFORMATION: Vitamin B6 (Pyridoxal 5-Phosphate) Pyridoxal 5'-phosphate measured in a specimen collected following an 8-hour or overnight fast accurately indicates vitamin B6 nutritional status. Non-fasting specimen concentration reflects recent vitamin intake. This test was developed and its performance characteristics determined by [facility]. It has not been cleared or approved by the [place] Food and Drug Administration. This test was performed in a CLIA certified laboratory and is intended for clinical purposes. Performed By: [facility] [address] [place] [address] Business Project Analyst: Benjamin Barnett MD, PhD CLIA Number: [id number] Blood BLOOD SPECIMEN / Unknown Lab Venipuncture / Unknown 08/30/2024 12:17 PM RAILWAY SHUNTER 08/30/2024 12:17 PM RAILWAY SHUNTER Yael Brock MD LAB - CHEMISTRY CHARLI CREWS [facility] Backtrace I/O [facility]) [address] [place] [address], [facility] * (ABNORMAL) ALLERGEN RESPIRATORY PNL REGION 8 ([place]) (08/30/2024 12:17 PM RAILWAY SHUNTER) IgE Total 102 <=214 kU/L 09/01/2024 3:56 PM RAILWAY SHUNTER [facility] ([facility]) Comment: REFERENCE INTERVAL: Immunoglobulin E, Serum Access complete set of age- and/or gender-specific reference intervals for this test in the [facility] Laboratory Test Directory ([employer]). Allergen Bowen Elder <0.10 <=0.34 kU/L 09/01/2024 3:56 PM RAILWAY SHUNTER [facility] ([facility]) Allergen Alternaria alternata <0.10 <=0.34 kU/L 09/01/2024 3:56 PM RAILWAY SHUNTER [facility] ([facility]) Allergen [place]own[place] Maple 0.11 <=0.34 kU/L 09/01/2024 3:56 PM RAILWAY SHUNTER [facility] ([facility]) Allergen Cat Dander <0.10 <=0.34 kU/L 09/01/2024 3:56 PM RAILWAY SHUNTER [facility] ([facility]) Allergen [place] <0.10 <=0.34 kU/L 09/01/2024 3:56 PM RAILWAY SHUNTER [facility] ([facility]) Allergen Cibola Tree 0.25 <=0.34 kU/L 09/01/2024 3:56 PM RAILWAY SHUNTER [facility] ([facility]) Allergen Rough Pigweed 0.22 <=0.34 kU/L 09/01/2024 3:56 PM RAILWAY SHUNTER [facility] ([facility]) Allergen Greek Thistle 0.40(H) <=0.34 kU/L 09/01/2024 3:56 PM RAILWAY SHUNTER [facility] ([facility]) Allergen Ricardo Grass 0.81(H) <=0.34 kU/L 09/01/2024 3:56 PM RAILWAY SHUNTER [facility]) Allergen Hormodendrum <0.10 <=0.34 kU/L 09/01/2024 3:56 PM RAILWAY SHUNTER [facility] ([facility]) Allergen Elm 0.24 <=0.34 kU/L 09/01/2024 3:56 PM RAILWAY SHUNTER [facility] ([facility]) Allergen [place] <0.10 <=0.34 kU/L 09/01/2024 3:56 PM RAILWAY SHUNTER [facility] ([facility]) Allergen A fumigatus IgE <0.10 <=0.34 kU/L 09/01/2024 3:56 PM RAILWAY SHUNTER [facility] ([facility]) Allergen Dermatophagoides pteronyssinus <0.10 <=0.34 kU/L 09/01/2024 3:56 PM RAILWAY SHUNTER [facility] ([facility]) Allergen Dermatophagoides farinae <0.10 <=0.34 kU/L 09/01/2024 3:56 PM RAILWAY SHUNTER [facility] ([facility]) Allergen Bermuda Grass <0.10 <=0.34 kU/L 09/01/2024 3:56 PM RAILWAY SHUNTER [facility] ([facility]) Allergen White Darrion 0.35(H) <=0.34 kU/L 09/01/2024 3:56 PM RAILWAY SHUNTER [facility] ([facility]) Allergen P. Notatum <0.10 <=0.34 kU/L 09/01/2024 3:56 PM RAILWAY SHUNTER [facility] ([facility]) Allergen Common Ragweed <0.10 <=0.34 kU/L 09/01/2024 3:56 PM [facility] ([facility]) Allergen Cockroach Irish <0.10 <=0.34 kU/L 09/01/2024 3:56 PM [facility] ([facility]) Allergen [place] Tree <0.10 <=0.34 kU/L 09/01/2024 3:56 PM [facility] ([facility]) Allergen Lynch Tree <0.10 <=0.34 kU/L 09/01/2024 3:56 PM [facility] ([facility]) Allergen Pecan Tree <0.10 <=0.34 kU/L 09/01/2024 3:56 PM [facility] ([facility] [facility]) Allergen Mouse Epithelium IgE <0.10 <=0.34 kU/L 09/01/2024 3:56 PM RA[facility]WAY SHUNTER [facility] ([facility]) Allergen Mucor racemosus <0.10 <=0.34 kU/L 09/01/2024 3:56 PM RAILWAY SHUNTER [facility] ([facility]) Allergen White [place] Tree IgE <0.10 <=0.34 kU/L 09/01/2024 3:56 PM [facility]WAY SHUNTER [facility] ([facility]) Allergen Dog Dander <0.10 <=0.34 kU/L 09/01/2024 3:56 PM [facility]WAY SHUNTER [facility] ([facility]) Comment: Performed By: [facility] [address] [place] [address] Business Project Analyst: Benjamin Barnett MD, PhD CLIA Number: [id number] Blood BLOOD SPECIMEN / Unknown Lab Venipuncture / Unknown 08/30/2024 12:17 PM RAILWAY SHUNTER 08/30/2024 12:17 PM [facility]ILWAY SHUNTER Michael Barlow MD LAB - CHEMISTRY CHARLI CREWS [facility] Organization Address City/State/ZIP Co de Phone Number [facility]) [address] [place] [address] * (ABNORMAL) COPPER BLOOD (08/30/2024 12:17 PM RAILWAY SHUNTER) Copper 72.8(L) 80.0 - 155.0 ug/dL 09/01/2024 7:31 AM [facility]WAY SHUNTER [facility] ([facility]) Comment: INTERPRETIVE INFORMATION: Copper, Serum or Plasma [...] developed and its performance characteristics determined by [facility]. It has not been cleared or approved by the US Food and Drug Administration. This test was performed in a CLIA certified laboratory and is intended for clinical purposes. Performed By: [facility] [address] [place] [address] Business Project Analyst: Benjamin Barnett MD, PhD CLIA Number: [id number] Blood BLOOD SPECIMEN / Unknown Lab Venipuncture / Unknown 08/30/2024 12:17 PM [facility]AY SHUNTER 08/30/2024 12:17 PM RAILWAY SHUNTER Yael Brock MD LAB - CHEMISTRY CHARLI CREWS [facility] ([facility]) [address] [place] [address], [facility] * PROTEIN ELECTROPHORESIS BLOOD (08/30/2024 12:17 PM RAILWAY SHUNTER) Interpretation Serum PE Normal Pattern Normal Pattern 09/01/2024 4:15 PM [facility] Comment: Serum capillary electrophoresis shows characteristic bands corresponding to albumin, alpha and beta globulins and polyclonal immunoglobulins. No monoclonal immunoglobulin detected. Non-secretory myeloma (NSM) and light chain only myeloma cannot be excluded based on this result. Recommend serum free light chain measurements for complete evaluation of plasma cell disorders. Felipa Myles PhD, [facility] Clinical Orthopaedic Physician Assistant spectrographer *The electrophoresis pattern and the interpretation have been reviewed and verified by the teaching physician. Protein Total 6.5 6.0 - 8.3 g/dL 09/01/2024 4:15 PM [facility] Albumin 3.9 3.3 - 5.6 g/dL 09/01/2024 4:15 PM [facility] Alpha-1 Globulins 0.2 0.2 - 0.4 g/dL 09/01/2024 4:15 PM [facility] Alpha-2 Globulins 0.7 0.5 - 1.0 g/dL 09/01/2024 4:15 PM [facility] Beta Globulins 0.7 0.6 - 1.1 g/dL 09/01/2024 4:15 PM [facility] Gamma Globulins 0.9 0.6 - 1.6 g/dL 09/01/2024 4:15 PM [facility] Blood BLOOD SPECIMEN / Unknown Lab Venipuncture / Unknown 08/30/2024 12:17 PM [facility]ILWAY SHUNTER 08/30/2024 12:17 PM [facility]ILWAY SHUNTER Yael Brock MD LAB - CHEMISTRY CHARLI CREWS Performing Organization Address City/[facility]/ZIP Co de Phone Number [facility] [place] [id number] [place] [address], [facility] [phone] * IGE BLOOD (08/30/2024 12:17 PM RAILWAY SHUNTER) Pathologist [facility] IgE Total 113 <=214 kU/L 09/01/2024 5:23 AM RAILWAY SHUNTER [facility] ([facility]) Comment: REFERENCE INTERVAL: Immunoglobulin E, Serum Access complete set of age- and/or gender-specific reference intervals for this test in the [facility] Laboratory Test Directory ([employer]). Performed By: [facility] [address] [place] [id number] Business Project Analyst: Benjamin Barnett MD, PhD CLIA Number: [id number] Blood BLOOD SPECIMEN / Unknown Lab Venipuncture / Unknown 08/30/2024 12:17 PM [facility]ILWAY SHUNTER 08/30/2024 12:17 PM [facility] SHUNTER Michael Barlow MD LAB - CHEMISTRY CHARLI CREWS Performing Organization Address [facility] Co de Phone Number [facility] ([facility]) [address] [place], [place] [address] * PATHOLOGY TISSUE (08/25/2024 1:24 PM RAILWAY SHUNTER) Pathologist [facility] Case Report Surgical Pathology Report Case: [id number] Authorizing Provider: Ricardo Jiménez MD Collected: 08/25/2024 01:24 PM Ordering Location: [facility] Received: 08/25/2024 03:33 PM Pathologist: Adrienne Haynes MD Specimen: Polyp Ascending, ascending colon polyp x1 08/26/2024 9:36 AM [facility]WAY SHUNTER [facility] Final Diagnosis Large intestine, ascending colon polyp x 1, biopsy (A): - Tubular adenoma 08/26/2024 9:36 AM [facility] SHUNTER [facility] Microscopic Description and Comment Microscopic examination substantiates the final diagnosis. 08/26/2024 9:36 AM [facility] SHUNTER [facility] Clinical History The patient is a 59-year-old woman who presents for high risk colon cancer surveillance (personal history of colonic polyps). Operative procedure/findings: Colonoscopy - 2 mm ascending colon polyp, resected and retrieved. 08/26/2024 9:36 AM [facility] Gross Description The requisition and specimen(s) are identified with the patient's name, Sylvia Griffin. Received in formalin, specimen A , is a single parker-pink tissue fragment 0.2 x 0.2 x 0.1 cm submitted in toto in cassette A1. IKD 08/26/2024 9:36 AM [facility] Pathologist Location at [facility] 08/26/2024 9:36 AM [facility] Disclaimer The performance characteristics of all immunohistochemical and indirect immunofluorescence stains (if any) cited in this report were determined by the Histopathology Laboratory of [facility]. Some of these tests were developed by [...] the attending (teaching) pathologist. 08/26/2024 9:36 AM [facility] Embedded Images 08/26/2024 9:36 AM [facility] Biopsy, NOS POLYP / Unknown 08/25/2024 1 :24 PM RAILWAY SHUNTER 08/25/2024 3:33 PM [facility]ILWAY SHUNTER Comment:Pre-op diagnosis: Screen for colon cancer [Z12.11] Ricardo Jiménez MD LAB - PATHOLOGY/CYTO LOGY ORDERABLES [facility] [address] [phone] * ENDOSCOPY, COLON, SCREENING (08/25/2024 1:09 PM RAILWAY SHUNTER) Report Endoscopy POC Endoscopy Department Report _ [...] entire procedure. Procedure Code(s): --- Professional --- 97130, Colonoscopy, flexible; with biopsy, single or multiple Diagnosis Code(s): --- Professional --- Z86.010, Personal history of colonic polyps K64.9, Unspecified hemorrhoids D12.2, Benign neoplasm of ascending colon K57.30, Diverticulosis of large intestine without perforation or abscess without bleeding CPT copyright 2021 [employer]. All rights reserved. The codes documented in this report are preliminary and upon physical plant employee review may be revised to meet current compliance requirements. Ricardo Jiménez, 08/25/2024 1:40:05 PM Note Initiated On: 08/25/2024 1:09 PM Number of Addenda: [address] [address] [facility] 08/25/2024 1:09 PM RAILWAY SHUNTER Ricardo Jiménez MD GI PROCEDURE ORDERAB LES [facility] * (ABNORMAL) GLUCOSE - POINT OF CARE (08/25/2024 12:00 PM RAILWAY SHUNTER) Glucose WB/POC 189(H) 70 - 99 mg/dL 08/25/2024 1:05 PM [facility]WAY SHUNTER [facility] Specimen Type Venous 08/25/2024 1:05 PM [facility]AY SHUNTER [facility] Blood BLOOD SPECIMEN / Unknown 08/25/2024 12:00 PM RAILWAY SHUNTER 08/25/2024 1:05 PM RAILWAY SHUNTER Ricardo Jiménez MD LAB - POINT OF CARE ORDERABLES [facility] [address] [place] [address], [facility] [phone] * (ABNORMAL) COMPREHENSIVE METABOLIC PANEL (10/13/2023 12:55 PM [facility]) BUN 28(H) 7 - 26 mg/dL 10/13/2023 1:57 PM [facility] Creatinine 0.93 0.56 - 0.96 mg/dL 10/13/2023 1:57 PM [facility] Sodium 133(L) 136 - 145 mmol/L 10/13/2023 1:57 PM [facility] Potassium 4.9(H) 3.5 - 4.5 mmol/L 10/13/2023 1:57 PM [facility] Chloride 99 98 - 107 mmol/L 10/13/2023 1:57 PM [facility] CO2 25 22 - 29 mmol/L 10/13/2023 1:57 PM [facility] Glucose 269(H) 70 - 115 mg/dL 10/13/2023 1:57 PM [facility] Calcium 9.3 8.4 - 10.2 mg/dL 10/13/2023 1:57 PM [facility] Protein Total 6.9 6.0 - 8.3 g/dL 10/13/2023 1:57 PM [facility] Albumin 4.0 3.4 - 5.0 g/dL 10/13/2023 1:57 PM [facility] Bilirubin Total 0.6 0.2 - 1.2 mg/dL 10/13/2023 1:57 PM [facility] Alkaline Phosphatase 81 40 - 150 U/L 10/13/2023 1:57 PM [facility] ALT 20 5 - 55 U/L 10/13/2023 1:57 PM [facility] AST 15 5 - 34 U/L 10/13/2023 1:57 PM [facility] Anion Gap 9 6 - 16 10/13/2023 1:57 PM [facility] BUN/Creatinine Ratio 30(H) 7 - 23 10/13/2023 1:57 PM [facility] Osmolality Calculated 291 275 - 295 mOsm/kg 10/13/2023 1:57 PM [facility] Albumin/Globulin Ratio 1.4 1.1 - 2.3 10/13/2023 1:57 PM [facility] eGFR by CKD-EPI 71(L) >=90 mL/min/1.7 3 m2 10/13/2023 1:57 PM [facility] Blood BLOOD SPECIMEN / Unknown Lab Venipuncture / Unknown 10/13/2023 12:55 PM RAILWAY SHUNTER 10/13/2023 1:23 PM RAILWAY SHUNTER Luiza Fernandez MD LAB - CHEMISTRY ORDE RABDEANGELO [facility] [address] [place] [address], [facility] [phone] * HEMOGLOBIN A1C - POINT OF CARE (AMB) U (10/13/2023 11:33 AM RAILWAY SHUNTER) Hemoglobin A1c POCT 10.1 % [address] BLOOD SPECIMEN / Unknown 10/13/2023 11:33 AM RAILWAY SHUNTER Luiza Fernandez MD LAB - POINT OF CARE ORDERABLES Performing Organization Address [facility]/ZIP Co de Phone Number [place] [phone] [facility] [place] [address], [facility] [phone] * MICROALB/CREAT RATIO URINE RANDOM PANEL (06/09/2023 12:44 PM CDT) Albumin Random Urine 35.5 Not Established ug/mL 06/09/2023 2:28 PM CDT [facility] Creatinine Urine >400.00 Not Established mg/dL 06/09/2023 2:28 PM CDT [facility] Urine Albumin/Creati nine Ratio <9 <30 mg/g 06/09/2023 2:28 PM CDT [facility] Urine URINE SPECIMEN OBTAINED BY CLEAN CATCH PROCEDURE / Unknown Collection / Unknown 06/09/2023 12:44 PM CDT 06/09/2023 1:42 PM CDT Luiza Fernandez MD LAB - URINE CHEMISTR Y ORDERABLES [address] [address], [facility] [phone] * CT LUNG SCREEN LOW DOSE (09/24/2021 10:13 AM RAILWAY SHUNTER) Anatomical Region Laterality Modality Chest Computed Tomogra phy 09/24/2021 10:5 2 AM RAILWAY SHUNTER Impressions 09/24/2021 11:08 AM RAILWAY SHUNTER Impression: 1.5 mm pulmonary nodule in the [...] 11:08 AM . Narrative 09/24/2021 11:08 AM RAILWAY SHUNTER Procedure Information DATE: 09/24/2021 10:14 AM EXAMINATION: [...] HEPATITIS C ANTIBODY (04/24/2016 1:05 PM CDT) Pathologist [facility] Hepatitis C Antibody Non-react [facility] Comment: Hepatitis C Antibody screen indicates no [...] LAB - CHEMISTRY CHARLI Vasquez Organization Address City/State/ZIP Co de Phone Number [facility] [address] [place], [place] [id number] [place] [address] from Last 3 Months or Most Recently Relevant to Health Maintenance Care Teams [employer] Relationship Specialty Start Date End Date Stella Sneed MD [address] [place] [id number] PCP - General Family Medicine 04/01/23 Luiza Fernandez MD [address] [place] [address] Physician Endocrinology 03/12/23
[2024-10-08 17:53] VITALS: BP 91/73; PULSE 90; RESP 18; TEMP 37.1; O2SAT 100
--- NOTE | 2024-10-08 19:56 | ED_ITS ---
HPI - General Adult General Chief complaint: Unspecified Stated complaint: multiple complaints Time Seen by Provider: 10/08/24 19:55 Source: patient Mode of arrival: ambulatory Limitations: no limitations History of Present Illness HPI narrative: This is a 59-year-old female who presents to the ED for multiple complaints. Patient states that she has been having headache, abdominal pain, dizziness, nausea, vomiting. She thinks that her abdominal pain may be due to diverticulitis. Patient states that she has diffuse headache and history of migraines but today does feel like a migraine. Patient also states that she has been nauseous and had episodes of vomiting. States that she thinks she has UTI but unable to really describe per urinary symptoms other than frequency. Denies fevers, chills, sore throat, cough, back pain, flank pain, syncope, numbness, weakness. Related Data Home Medications ?Medication ?Instructions ?Recorded ?Confirmed ?Last Taken ?Type albuterol sulfate 90 mcg/actuation 2 puff inhalation QID PRN SOB 01/17/20 09/16/24 Unknown History aerosol inhaler aspirin 81 mg chewable tablet 81 mg PO DAILY 01/17/20 09/16/24 05/17/22 09:00 History atorvastatin 80 mg tablet 80 mg PO HS 01/17/20 09/16/24 05/17/22 21:00 History budesonide-formoterol HFA 80 2 puff inhalation DAILY 01/17/20 09/16/24 05/18/22 History mcg-4.5 mcg/actuation aerosol inhaler (Symbicort) citalopram 40 mg tablet 40 mg PO DAILY 01/17/20 09/16/24 05/17/22 12:00 History cromolyn 4 % eye drops 1 drp ophthalmic (eye) 4-6XD 01/17/20 09/16/24 05/17/22 History famotidine 20 mg tablet 20 mg PO HS 01/17/20 09/16/24 05/17/22 21:00 History fluticasone propionate 50 1 spray intranasal DAILY 01/17/20 09/16/24 01/17/20 History mcg/actuation nasal spray,suspension insulin lispro 100 unit/mL 1 sliding scale dose subcut 01/17/20 09/16/24 01/17/20 History subcutaneous solution (Admelog USEASDIRECTD U-100 Insulin lispro) isosorbide mononitrate 60 mg 60 mg PO DAILY 01/17/20 09/16/24 01/17/20 History tablet,extended release 24 hr lisinopril 10 mg tablet 10 mg PO DAILY 01/17/20 09/16/24 05/17/22 12:00 History lorazepam 1 mg tablet 1 mg PO DAILY 01/17/20 09/16/24 01/17/20 History metformin 1,000 mg tablet 1,000 mg PO BID 01/17/20 09/16/24 01/17/20 History metoprolol tartrate 50 mg tablet 50 mg PO Q12H 01/17/20 09/16/24 01/17/20 History montelukast 10 mg tablet 10 mg PO DAILY 01/17/20 09/16/24 01/16/20 History nitroglycerin 0.4 mg sublingual 0.4 mg sublingual Q5-15M PRN Chest 01/17/20 09/16/24 Unknown History tablet Pain sumatriptan succinate 25 mg tablet 50 mg PO DAILY PRN Migranes 01/17/20 09/16/24 Unknown History trazodone 100 mg tablet 100 mg PO HS 01/17/20 09/16/24 01/16/20 History dicyclomine 10 mg capsule 10 mg PO QID PRN Diarrhea 06/15/20 09/16/24 05/17/22 09:00 History gabapentin 600 mg tablet 600 mg PO TID 06/15/20 09/16/24 Unknown History omeprazole 40 mg capsule,delayed 40 mg PO DAILY 05/19/22 09/16/24 Unknown History release Allergies Allergy/AdvReac Type Severity Reaction Status Date / Time No Known Allergies Allergy Verified 10/08/24 17:54 Review of Systems 2 Review of Systems: All systems as dictated in [facility] Past Medical History Medical History Irritable bowel syndrome with diarrhea Kidney stones Hepatic steatosis Migraines GERD (gastroesophageal reflux disease) Osteoarthritis Bipolar disorder Anxiety PTSD (post-traumatic stress disorder) Gastroparesis Peripheral neuropathy Hyperlipidemia Diabetes mellitus Coronary artery disease Surgical History Surgical History History of surgery on left wrist History of back surgery History of left oophorectomy History of hysterectomy History of cholecystectomy History of tonsillectomy Family History Family History Father Hypertension Dementia Parkinsons disease Mother Hypertension Social History Social History Smoking packs per day: 1 Smoking cigarettes per day: 20.0 Years smoked: 25 Smoking pack-years: 25.00 Smoking status: Former smoker Tobacco type: cigarettes Second hand tobacco smoke exposure: No Alcohol intake: never Substance use: current Substance use type: marijuana Living arrangements: with family Occupation/Education: unemployed Gender identity (if verbalized by the patient): Female Spiritual care concerns: No Exam 2 Narrative: GENERAL: Well-appearing, well-nourished, and in no acute distress. HEAD: Normocephalic, atraumatic. EYES: PERRLA and EOMI. ENT: Nares clear, no rhinorrhea or epistaxis. Mucous membranes moist. Oropharynx without tonsillar hypertrophy exudate or other lesions. NECK: Supple. No adenopathy or masses. CHEST: No respiratory distress. Clear to auscultation. No wheezes rales or rhonchi HEART: Regular rate and rhythm. No murmur heard. Normal peripheral pulses. ABDOMEN: Mild left lower quadrant tenderness. Soft, otherwise nontender, nondistended, normal active bowel sounds. MSK: Normal range of motion. No edema. SKIN: Warm, dry, no rash. NEURO: Alert and oriented x4. No focal deficits. PSYCH: Normal mood and affect. Course Vital Signs Vital signs: Vital Signs Temperature 98.8 F 10/08/24 17:53 Pulse Rate 90 10/08/24 17:53 Respiratory Rate 18 10/08/24 17:53 Blood Pressure 91/73 L 10/08/24 17:53 Pulse Oximetry 100 10/08/24 17:53 Temperature 98.8 F 10/08/24 17:53 Pulse Rate 90 10/08/24 17:53 Respiratory Rate 18 10/08/24 17:53 Blood Pressure 91/73 L 10/08/24 17:53 Pulse Oximetry 100 10/08/24 17:53 Medical Decision Making MDM Narrative Medical decision making narrative: This is a 59-year-old female who presents to the ED for multiple complaints, however seems to be most concerned about the abdominal pain, nausea, vomiting. Vitals are normal. Afebrile. Exam remarkable for the above and does have mild lower abdominal tenderness. Lab work showing slightly elevated white count of 12.4. CMP unremarkable overall. Lipase normal. Urinalysis concerning for infection with 1+ leuks, 21- 50 whites. Urine culture is pending. CT abdomen pelvis with IV contrast does show bladder wall thickening but no other acute intra-abdominal findings. Presentation consistent with acute UTI. She was given Rocephin here on top of fluids and pain control. Rx for cephalexin given. Patient will be discharged in stable condition. Supportive measures discussed and return precautions given. Patient is understanding and agreeable with plan for discharge with PCP follow-up. Vital Signs Vital Signs: Vital Signs Temperature 98.8 F 10/08/24 17:53 Pulse Rate 90 10/08/24 17:53 Respiratory Rate 18 10/08/24 17:53 Blood Pressure 91/73 L 10/08/24 17:53 Pulse Oximetry 100 10/08/24 17:53 Temperature 98.8 F 10/08/24 17:53 Pulse Rate 90 10/08/24 17:53 Respiratory Rate 18 10/08/24 17:53 Blood Pressure 91/73 L 10/08/24 17:53 Pulse Oximetry 100 10/08/24 17:53 Lab Data 10/08/24 20:17 10/08/24 20:17 Labs: Lab Results 10/08/24 10/08/24 Range/Units 20:17 20:32 WBC 12.4 H (4.5-10.0) K/mm3 RBC 4.96 (4.2-5.4) M/mm3 Hgb 12.5 (12.0-15.0) g/dL Hct 38.8 (37.0-47.0) % MCV 78.2 L (80-100) fl MCH 25.2 L (26-34) pg MCHC 32.2 (32-36) g/dl RDW 14.2 (11.5-14.5) % Plt Count 190 (150-375) k/mm3 MPV 11.0 H (7.4-10.4) fl Immature Gran % (Auto) Not Reportable Neut % (Auto) Not Reportable Lymph % (Auto) Not Reportable [place] % (Auto) Not Reportable Eos % (Auto) Not Reportable Baso % (Auto) Not Reportable Lymph # (Auto) Not Reportable [place] # (Auto) Not Reportable Eos # (Auto) Not Reportable Baso # (Auto) Not Reportable Abs Immat Gran (auto) Not Reportable Absolute Neuts (auto) Not Reportable Absolute Nucleated RBC Not Reportable Total Counted 100 Neutrophils % (Manual) 69 (46-73) % Band Neutrophils % 1 (0-6) % Lymphocytes % (Manual) 23 (18-44) % Monocytes % (Manual) 7 (3-9) % Eosinophils % (Manual) 0 (0-4) % Basophils % (Manual) 0 (0-1) % Nucleated RBC % Not Reportable Abs Neuts (Manual) 8.68 H (1.7-7.2) K/mm3 Abs Lymphs (Manual) 2.85 (1.1-4.5) K/mm3 Abs Monocytes (Manual) 0.86 (0.1-0.90) K/mm3 Absolute Eos (Manual) 0.00 L (0.02-0.50) K/mm3 Abs Basophils (Manual) 0.00 (0.0-0.1) K/mm3 Platelet Estimate Adequate (Adequate) Large Platelets Present Giant Platelets Present Microcytosis 1+ (NORMAL) Ovalocytes 1+ Schistocytes None seen Sodium 134 L (137-145) mmol/L Potassium 3.8 (3.4-5.0) mmol/L Chloride 98 (98-107) mmol/L Carbon Dioxide 26 (22-30) mmol/L Anion Gap 10 (4-12) mmol/L BUN 17 (7-17) mg/dL Creatinine 1.07 H (0.7-1.0) mg/dL Estim Creat Clear Calc 54 ml/min Estimated GFR 52 L (59 - ) Glucose 121 H (65-110) mg/dL Calcium 9.1 (8.4-10.2) mg/dL Total Bilirubin 1.0 (0.2-1.3) mg/dL AST 28 (14-36) U/L ALT 26 (6-35) U/L Alkaline Phosphatase 92 (38-126) U/L Total Protein 7.0 (6.3-8.2) g/dL Albumin 4.2 (3.5-5.1) g/dL Lipase 95 (23-300) U/L Urine Color Yellow (Yellow) Urine Appearance Clear (Clear) Urine pH 5.5 (5.0-9.0) Ur Specific [place] 1.014 (1.001-1.035) Urine Protein Negative (Negative) mg/dL Urine Glucose (UA) 3+ H (Negative) mg/dL Urine Ketones Negative (Negative) mg/dL Ur Blood (Man) Negative (Negative) Urine Nitrate Negative (Negative) Urine Bilirubin Negative (Negative) Urine Urobilinogen 0.2 (<2.0) mg/dL Leukocyte Esterase Rfl 1+ H (Negative) JOSE F/UL Urine RBC 0-2 (0-2) /hpf Urine WBC 21-50 H (0-3) /hpf Ur Squamous Epith Cells None seen (Few) /hpf Urine Bacteria None seen /hpf Urine Casts 0-2 Discharge Plan Discharge Clinical Impression: Acute UTI Patient Disposition: Home, Self-Care Condition: Stable Instructions: Antibiotic Form Additional Instructions: Exam today is showing UTI. Please take antibiotics as prescribed and follow-up closely with PCP on this issue. Continue with both Tylenol and ibuprofen for aches and fevers at home. If you have any new or worsening symptoms please return to the ER for further evaluation. Patient Language: Estonian Prescriptions: New cephalexin 500 mg capsule 500 mg PO Q8H 7 Days Qty: 21 0RF No Action hydrocortisone 1 % cream 1 applic topical TID PRN (Reason: skin irritation) Qty: 28.35 0RF doxycycline monohydrate 100 mg tablet 100 mg PO BID 10 Days Qty: 20 0RF mupirocin 2 % ointment 1 applic topical BID Qty: 15 0RF gabapentin 600 mg tablet 600 mg PO TID dicyclomine 10 mg capsule 10 mg PO QID PRN (Reason: Diarrhea) sumatriptan succinate 25 mg Tablet 50 mg PO DAILY PRN (Reason: Migranes) atorvastatin 80 mg Tablet 80 mg PO HS citalopram 40 mg Tablet 40 mg PO DAILY Rx Instructions: pt takes at noon cromolyn 4 % drops 1 drp ophthalmic (eye) 4-6XD isosorbide mononitrate 60 mg Tablet Extended Release 24 Hr 60 mg PO DAILY famotidine 20 mg Tablet 20 mg PO HS trazodone 100 mg Tablet 100 mg PO HS metformin 1,000 mg Tablet 1,000 mg PO BID lisinopril 10 mg Tablet 10 mg PO DAILY Rx Instructions: pt takes at noon metoprolol tartrate 50 mg Tablet 50 mg PO Q12H nitroglycerin 0.4 mg Tablet, Sublingual 0.4 mg SUBLINGUAL Q5-15M PRN (Reason: Chest Pain) aspirin 81 mg Tablet,Chewable 81 mg PO DAILY montelukast 10 mg Tablet 10 mg PO DAILY lorazepam 1 mg Tablet 1 mg PO DAILY insulin lispro [Admelog U-100 Insulin lispro] 100 unit/mL Solution 1 sliding scale dose SUBCUT USEASDIRECTD Rx Instructions: pt uses a insulin pump w/this insulin albuterol sulfate 90 mcg/actuation Hfa Aerosol Inhaler 2 puff INHALATION QID PRN (Reason: SOB) fluticasone propionate 50 mcg/actuation [place],Suspension 1 spray INTRANASAL DAILY budesonide-formoterol [Symbicort] 80-4.5 mcg/actuation Hfa Aerosol Inhaler 2 puff INHALATION DAILY Claritin-D 24 Hour 10-240 mg tablet extended release 24 hr 1 tablet PO DAILY Qty: 10 0RF ibuprofen 800 mg tablet 800 mg PO TID PRN (Reason: pain) Qty: 30 0RF hydrocodone-acetaminophen 5-325 mg tablet 1 tablet PO Q6H PRN (Reason: pain) Qty: 5 0RF omeprazole 40 mg Capsule,Delayed Release(Dr/Ec) 40 mg PO DAILY Follow-up/Referrals: PHYSICIAN NOT ON STAFF,NONSTAFF [Primary Care Provider] - Time of Disposition: 21:59
--- OUTSIDE RECORDS SUMMARY | 2024-10-08 20:15 | XMS_ITS | Encounter Summary ---
Author Organization [facility] Health Address [address] [place] [address] Care Team Providers Care Stump Shooter Name Role Phone Luiza Fernandez MD Unavailable Stella Sneed MD Primary Care Provider [phone] Encounter Details Date Type Department Care Team (Late st Contact Info) Description 01/22/2024 Telephone [facility] - Pulmonology [address] [facility], [facility] [place] [address] Raffaele Red MD [address] [facility] [address] [place], [place] [id number] Social History Tobacco Use Types Packs/Day Years [...] Sex Assigned at Female 09/05/2021 1:34 PM RECEIVING BARN CUSTODIAN Gender Identity Female 09/05/2021 1:34 PM RECEIVING BARN CUSTODIAN Sexual Orientation Straight 09/05/2021 1: 34 PM RECEIVING BARN CUSTODIAN documented as of this encounter Functional Status [...] when she gets her new card w [facility]. I had to search a bit to find appt./info for this pt. Pharmacy: Mail Order [facility] [address] [place] [address], [facility] [id number] Patient call back number: [phone] . Patients SEBLE : 10/10/21 w Raffaele Red Upcoming appointment scheduled for : None - lost insurance - just g documented in this encounter Plan of Treatment Upcoming Encounters Date Type Department Care Team (Late st Contact Info) Description 11/03/2024 4:00 PM CDT Office Visit [facility] - Pulmonology [address] [place] [address], [place] [phone] Luis Peter MD [address] [facility] PULMONARY DISEASE/[place] [phone] 12/21/2024 2:20 PM CDT Office Visit [facility] - Endocrinology [address] [place] [address], [place] [phone] Joceline Reed MD [address] [place] [address] 12/29/2024 8:30 AM CDT [facility] GI [address] [place] [address], [place] [phone] 01/17/2025 1:00 PM CDT Office [facility] - Neurology [address] [place] [address], [place] [phone] Yael Brock MD [address] [place] [address] 1L [place] [phone] 2025 8:40 AM CDT Office Visit [facility] - Sleep Services [facility] [place] [phone] Breanna Layton, APNP-SENIOR ASP NET DEVELOPER [address] [place] [address] 2L DIV OF PULMONARY/[place] [address] documented as of this encounter Goals Goal Patient Goal Type Associated Problems Recent Progress Patient-Stated? Author Medication Management General On track( 024 2:44 PM RECEIVING BARN CUSTODIAN) Tammy Sanchez, RN Note: Expected end date: ongoing Interventions: Take all medications as prescribed Let your doctor know right away about any changes in your medications Make sure to request a refill of your medication at least one week prior to your last dose Safety General On track( 024 2:44 PM RECEIVING BARN CUSTODIAN) Kylah Genao, RN Note: Expected end date: ongoing Interventions: Your nurse will assess your risk for falls/injury each visit Use appropriate and safe transfer methods Keep personal items within easy reach Use some light at night in your room Keep walking paths clutter free and clear documented as of this encounter Visit Diagnoses Not on filedocumented in this encounter Care Teams Stump Shooter Relationship Specialty Start Date End Date Stella Sneed MD [address] [place] [phone] PCP - General Family Medicine 04/01/23 Luiza Fernandez MD [address] [place] [address] Physician Endocrinology 03/12/23 documented as of this encounter
--- OUTSIDE RECORDS SUMMARY | 2024-10-08 20:15 | XMS_ITS | Clinical Summary ---
Author Organization [facility] Address [address] [place] [address] Care Team Providers Care Human Resources Analyst Name Role Phone Stella Sneed MD Primary [...] on file Legal Sex Female 3:25 AM AERODYNAMICS PROFESSOR Gender Identity Female 01/22/2023 2:43 AM CDT [...] WITH LIPID PANEL Routine 07/13/2013 7:18 PM AERODYNAMICS PROFESSOR from Last 3 Months or Most Recently [...] scheduled appointment/procedure. Manolo Robbins M.D., md/:02/23/2017 11:41:54 Container Repairer: Aileen TIRADO(R)(M), [facility] letter sent: Abnormal Exam Reading [...] to exams dated: 01/02/2015 mammogram, 02/03/2013 mammogram/ultrasound [facility]. BREAST TISSUE: The tissue of [...] to exams dated: 01/02/2015 mammogram,02/03/2013 mammogram/[facility]. BREAST TISSUE: The tissue of [...] scheduled appointment/procedure. Manolo Robbins M.D., md/:02/23/2017 11:41:54 Container Repairer: Aileen Durbin RT(R)(M), [facility] letter sent: Abnormal Exam Reading location: BI-RADS: 4a Suspicious abnormality - low suspicion for malignancy [EOD] us Stella Sneed MD IMG MAMMO PROCEDURES Final Result * TNI with LIPID PANEL (07/13/2013 7:18 PM AERODYNAMICS PROFESSOR) Troponin I < 0.300 0.000 - 0.300 ng/mL 07/13/2013 7:48 PM AERODYNAMICS PROFESSOR [facility] HISTORICAL RESULTS Comment: Reference using CHANO Chemiluminescence Negative: Repeat in 4-6 hours as indicated. Triglycerides 142 0 - 199 mg/dL 07/13/2013 7:49 PM AERODYNAMICS PROFESSOR [facility] HISTORICAL RESULTS Comment:12 hr pc highly sayra mmended for Triglyceride Cholesterol 170 0 - 199 mg/dL 07/13/2013 7:49 PM AERODYNAMICS PROFESSOR [facility] HISTORICAL RESULTS Comment: Borderline: 200-239 High Risk: >239 HDL Cholesterol 40 40 - 60 mg/dL 07/13/2013 7:49 PM AERODYNAMICS PROFESSOR [facility] [employer] HISTORICAL RESULTS Comment: Major Risk < 40 mg/dL Moderate Risk 40-60 mg/dL Negative Risk > 60 mg/dL LDL Cholesterol, Calc 102 0 - 130 mg/dL 07/13/2013 7:49 PM AERODYNAMICS PROFESSOR [facility]ITAL[facility] HISTORICAL RESULTS Comment:High Risk > 159 mg/d L 07/13/2013 7:18 PM AERODYNAMICS PROFESSOR 07/13/2013 7:25 PM AERODYNAMICS PROFESSOR Diana Olmedo PA LAB BLOOD ORDERABLES Final Re sult [facility] [employer] HISTORICAL RESULTS from Last 3 Months or Most Recently Relevant to Health Maintenance Insurance [facility] Care Teams Human Resources Analyst Relationship Specialty Start Date End Date Stella Sneed MD [address] [place] [id number] PCP - General Family Medicine 03/04/22
--- OUTSIDE RECORDS SUMMARY | 2024-10-08 20:15 | XMS_ITS | Encounter Summary ---
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- patient confirmed appt on 08/01/21 Encounter Details Date Type Department Care Team (Late st Contact Info) Description 07/24/2021 Telephone [facility] [address] [place] [address] Mckenna Paul, GISELE Methacholine Challenge [...] Sex Assigned at Female 09/05/2021 1:34 PM SKIDDER Gender Identity Female 09/05/2021 1:34 PM SKIDDER Sexual Orientation Straight 09/05/2021 1: 34 PM SKIDDER documented as of this encounter Plan of Treatment Upcoming Encounters Date Type Department Care Team (Late st Contact Info) Description 11/03/2024 4:00 PM CDT Office Visit [facility] - Pulmonology [address] [place] [address] Luis Peter MD [address] [place] [address] PULMONARY DISEASE/[place] [address] 12/21/2024 2:20 PM CDT Office Visit [facility] - Endocrinology [address] [place] [address], [place] [address] Joceline Reed MD [address] [place] [address] 12/29/2024 8:30 AM CDT Office Visit [facility] - GI [address] [place] [address] [place] [address] 01/17/2025 1:00 PM CDT Office Visit [facility] - Neurology [address] [place] [address], [place] [address] Yael Brock MD [address] [place] [address] [place] [phone] 2025 8:40 AM CDT Office Visit [facility] - Sleep Services [facility] [place] [address] Breanna Layton, APNP-POCKET MACHINE OPERATOR [address] [facility] 2L DIV OF PULMONARY/[place] [address] documented as of this encounter Goals Goal Patient Goal Type Associated Problems Recent Progress Patient-Stated? Author Medication Management General On track( 024 2:44 PM SKIDDER) Tammy Sanchez, RN Note: Expected end date: ongoing Interventions: Take all medications as prescribed Let your doctor know right away about any changes in your medications Make sure to request a refill of your medication at least one week prior to your last dose documented as of this encounter Visit Diagnoses Not on filedocumented in this encounter Care Teams Science Writer Relationship Specialty Start Date End Date Dea Norman MD [address] [facility] 2L DIV [place] [address] PCP - General 04/11/21 03/11/23 Stella Sneed MD [address] [place] [address] PCP - General Family Medicine 04/01/23 Luiza Fernandez MD [address] [place] [address] Physician Endocrinology 03/12/23 documented as of this encounter
--- OUTSIDE RECORDS SUMMARY | 2024-10-08 20:15 | XMS_ITS | Encounter Summary ---
Author Organization [facility] Health Address [address] [place] [address] Care Team Providers Care Operations Specialist Name Role Phone Luiza Fernandez MD Unavailable Stella Sneed MD Primary Care Provider [phone] Reason for Visit * Reason Onset Date Comments MEDICATION REFILL 07/14/2023 Encounter Details Date Type Department Care Team (Late st Contact Info) Description 07/14/2023 Refill [facility] - Endocrinology [address] [place] [address], [place] [phone] Buck Louise MD [address] [place] [address] [place] [address] MEDICATION REFILL Social History Tobacco Use Types [...] Sex Assigned at Female 09/05/2021 1:34 PM EARLY CHILDHOOD TEACHER ASSISTANT Gender Identity Female 09/05/2021 1:34 PM EARLY CHILDHOOD TEACHER ASSISTANT Sexual Orientation Straight 09/05/2021 1: 34 PM EARLY CHILDHOOD TEACHER ASSISTANT documented as of this encounter Functional Status [...] 1 (one) tablet by mouth once daily Y CHILDHOOD TEACHER ASSISTANT documented in this encounter Plan of Treatment Upcoming Encounters Date Type Department Care Team (Late st Contact Info) Description 11/03/2024 4:00 PM CDT Office Visit [facility] - Pulmonology [address] [place] [phone] Luis Peter MD [address] [place] [address] PULMONARY DISEASE/[place] [phone] 12/21/2024 2:20 PM CDT Office Visit [facility] - Endocrinology [address] [place] [phone] Joceline Reed MD [facility] [place] [address] 12/29/2024 8:30 AM CDT Office Visit [facility] - GI [address] [place] [address] [place] [phone] 01/17/2025 1:00 PM CDT [facility] [address] [place] [address] [place] [phone] Yael Brock MD [address] [place] [address] 1L [place] [phone] 2025 8:40 AM CDT Office Visit [facility] - Sleep Services [facility] [place] [phone] Breanna Layton, APNP-SILK TOP HAT BODY MAKER [address] [place] [address] 2L DIV OF PULMONARY/[place] [address] documented as of this encounter Goals Goal Patient Goal Type Associated Problems Recent Progress Patient-Stated? Author Medication Management General On track( 2:44 PM EARLY CHILDHOOD TEACHER ASSISTANT) Tammy Sanchez RN Note: Expected end date: ongoing Interventions: Take all medications as prescribed Let your doctor know right away about any changes in your medications Make sure to request a refill of your medication at least one week prior to your last dose Safety General On track( 2:44 PM EARLY CHILDHOOD TEACHER ASSISTANT) Kylah Genao RN Note: Expected end date: [...] (HCC) documented in this encounter Care Teams Operations Specialist Relationship Specialty Start Date End Date Stella Sneed MD [address] [place] [address] PCP - General Family Medicine 04/01/23 Luiza Fernandez MD [address] [place] [address] Physician Endocrinology 03/12/23 documented as of this encounter
--- OUTSIDE RECORDS SUMMARY | 2024-10-08 20:15 | XMS_ITS | Referral Summary ---
Author Organization [facility] Address [address] [place] [address] Care Team Providers Care Security Services Specialist Name Role Phone Stella Sneed MD Primary [...] on file Legal Sex Female 3:25 AM ATHLETIC GEAR CUSTODIAN Gender Identity Female 01/22/2023 2:43 AM CDT [...] WITH LIPID PANEL Routine 07/13/2013 7:18 PM ATHLETIC GEAR CUSTODIAN from Last 3 Months or Most Recently [...] scheduled appointment/procedure. Manolo Robbins M.D., md/:02/23/2017 11:41:54 Bottle Label Inspector: Aileen TIRADO([place])(Josy), [facility] letter sent: Abnormal Exam Reading location: [...] exams dated: 01/02/2015 mammogram, 02/03/2013 mammogram/ultrasound - [facility]. BREAST TISSUE: The tissue of both [...] to exams dated: 01/02/2015 mammogram,02/03/2013 mammogram/ultrasound - [facility]. BREAST TISSUE: The tissue of both [...] scheduled appointment/procedure. Manolo Robbins M.D., md/:02/23/2017 11:41:54 Bottle Label Inspector: Aileen ARELLANO)(Josy), [facility] letter sent: Abnormal Exam Reading location: BI-RADS: 4a Suspicious abnormality - low suspicion for malignancy [EOD] us Stella Sneed MD IMG MAMMO PROCEDURES Final Result * TNI with LIPID PANEL (07/13/2013 7:18 PM ATHLETIC GEAR CUSTODIAN) Troponin I < 0.300 0.000 - 0.300 ng/mL 07/13/2013 7:48 PM [facility] [employer] HISTORICAL RESULTS Comment: Reference using CHANO Chemiluminescence Negative: Repeat in 4-6 hours as indicated. Triglycerides 142 0 - 199 mg/dL 07/13/2013 7:49 PM ATHLETIC GEAR CUSTODIAN [facility] [employer] HISTORICAL RESULTS Comment:12 hr pc highly sayra mmended for Triglyceride Cholesterol 170 0 - 199 mg/dL 07/13/2013 7:49 PM ATHLETIC GEAR CUSTODIAN [facility] [employer] HISTORICAL RESULTS Comment: Borderline: 200-239 High Risk: >239 HDL Cholesterol 40 40 - 60 mg/dL 07/13/2013 7:49 PM [facility] [employer] HISTORICAL RESULTS Comment: Major Risk < 40 mg/dL Moderate Risk 40-60 mg/dL Negative Risk > 60 mg/dL LDL Cholesterol, Calc 102 0 - 130 mg/dL 07/13/2013 7:49 PM ATHLETIC GEAR CUSTODIAN [facility] [employer] HISTORICAL RESULTS Comment:High Risk > 159 mg/d L 07/13/2013 7:18 PM ATHLETIC GEAR CUSTODIAN 07/13/2013 7:25 PM ATHLETIC GEAR CUSTODIAN us Diana [facility] BLOOD ORDERABLES Final Re sult [facility] [employer] HISTORICAL RESULTS from Last 3 Months or Most Recently Relevant to Health Maintenance Insurance [facility] [address] [place] [address] [facility] [place] [address] Care Teams Security Services Specialist Relationship Specialty Start Date End Date Stella Sneed MD [address] [place] [phone] PCP - General Family Medicine 03/04/22
--- OUTSIDE RECORDS SUMMARY | 2024-10-08 20:15 | XMS_ITS | Encounter Summary ---
Author Organization [facility] Health Address [address] [facility] [place] [address] Care Team Providers Care Mail Handler Name Role Phone Luiza Fernandez MD Unavailable Stella Sneed MD Primary Care Provider [phone] Reason for Visit * Reason Onset Date Comments MEDICATION REFILL 07/14/2023 Encounter Details Date Type Department Care Team (Late st Contact Info) Description 07/14/2023 Refill [facility] - Endocrinology [address] [facility], [facility] [place] [phone] Maggie Lester MD [address] [facility] [place] [address] MEDICATION REFILL Social History Tobacco [...] Sex Assigned at Female 09/05/2021 1:34 PM FOREST ECONOMICS PROFESSOR Gender Identity Female 09/05/2021 1:34 PM FOREST ECONOMICS PROFESSOR Sexual Orientation Straight 09/05/2021 1: 34 PM FOREST ECONOMICS PROFESSOR documented as of this encounter Functional Status [...] Office Visit [facility] - Pulmonology [address] [place] [phone] Luis Peter MD [facility] PULMONARY DISEASE/[place] [address] 12/21/2024 2:20 PM CDT Office Visit [facility] - Endocrinology [address] [place] [phone] Joceline Reed MD [address] [place] [address] 12/29/2024 8:30 AM CDT Office Visit [facility] - GI [address] [place] [phone] 01/17/2025 1:00 PM CDT Office Visit [facility] - Neurology [address] [place] [address] [place] [address] Yael Brock MD [address] [facility] 1L [place] [phone] 2025 8:40 AM CDT Office Visit [facility] - Sleep Services [address] [place] [phone] Breanna Layton, TICO-LAYER UP [address] [facility] 2L DIV OF PULMONARY/[place] [address] documented as of this encounter Goals Goal Patient Goal Type Associated Problems Recent Progress Patient-Stated? Author Medication Management General On track( 2:44 PM FOREST ECONOMICS PROFESSOR) Tammy Sanchez, RN Note: Expected end date: ongoing Interventions: Take all medications as prescribed Let your doctor know right away about any changes in your medications Make sure to request a refill of your medication at least one week prior to your last dose Safety General On track( 2:44 PM FOREST ECONOMICS PROFESSOR) No Kylah Rae, RN Note: Expected end [...] (HCC) documented in this encounter Care Teams Mail Handler Relationship Specialty Start Date End Date Stella Sneed MD [address] [place] [phone] PCP - General Family Medicine 04/01/23 Luiza Fernandez MD [address] [place] [address] Physician Endocrinology 03/12/23 documented as of this encounter
--- OUTSIDE RECORDS SUMMARY | 2024-10-08 20:15 | XMS_ITS | Encounter Summary ---
Author Organization [facility] Health Address [address] [facility] [place] [address] Care Team Providers Care Technician Biological Health Name Role Phone Dea Norman MD Primary Care Provider [phone] Luiza Fernandez MD Unavailable Stella Sneed MD Primary Care Provider [phone] Reason for Visit * Reason Onset Date Comments MEDICATION REFILL 01/09/2022 Encounter Details Date Type Department Care Team (Late st Contact Info) Description 01/09/2022 Refill [facility], Diabetes and Metabolism [address] [facility], [facility] [place] [phone] Angel Sotomayor MD [address] [facility] [place] [address] MEDICATION REFILL Social History Tobacco [...] Sex Assigned at Female 09/05/2021 1:34 PM SPIRITS MODEL Gender Identity Female 09/05/2021 1:34 PM SPIRITS MODEL Sexual Orientation Straight 09/05/2021 1: 34 PM SPIRITS MODEL documented as of this encounter Miscellaneous Notes [...] Office Visit [facility] - Pulmonology [address] [place] [phone] Luis Peter MD [address] [place] [address] PULMONARY DISEASE/[place] [address] 12/21/2024 2:20 PM CDT Office Visit [facility] - Endocrinology [address] [place] [phone] Joceline Reed MD [address] [place] [address] 12/29/2024 8:30 AM CDT Office Visit [facility] - GI [address] [facility], [place] [phone] 01/17/2025 1:00 PM CDT Office Visit [facility] - Neurology [address] [place] [address], [place] [phone] Yael Brock MD [address] [place] [address] 1L [place] [phone] 2025 8:40 AM CDT Office Visit [facility] - Sleep Services [address] [place] [phone] Breanna Layton, TICO-MANAGER CIVIL [address] [place] [address] 2L DIV OF PULMONARY/[place] [address] documented as of this encounter Goals Goal Patient Goal Type Associated Problems Recent Progress Patient-Stated? Author Medication Management General On track( 2:44 PM SPIRITS MODEL) No Tammy Santos, LOUISA Note: Expected end date: ongoing Interventions: Take all medications as prescribed Let your doctor know right away about any changes in your medications Make sure to request a refill of your medication at least one week prior to your last dose Safety General On track( 2:44 PM SPIRITS MODEL) Kylah Genao, RN Note: Expected end date: [...] (HCC) documented in this encounter Care Teams Technician Biological Health Relationship Specialty Start Date End Date Dea Norman MD [address] [facility] [place] [place] [address] PCP - General 04/11/21 03/11/23 Stelal Sneed MD [address] [place] [phone] PCP - General Family Medicine 04/01/23 Luiza Fernandez MD [address] [place] [address] Physician Endocrinology 03/12/23 documented as of this encounter
--- OUTSIDE RECORDS SUMMARY | 2024-10-08 20:16 | XMS_ITS | Patient Health Summary ---
Author Organization [facility] Address [address] [place] [address] Care Team Providers Care Frit Burner Name Role Phone Luiza Fernandez MD Unavailable Stella Sneed MD Primary Care Provider [phone] [facility],non-owned Affiliates and Associated Physician Practices is amultiple site organization consisting of ambulatory clinics and hospital sitesin [place], [place], [place] and [place]. This disclosure is being madepursuant to the Care Everywhere program and may not contain all information available regarding this patient. Last updated 18.[facility] Allergies No known active allergies* Perflutren [...] 2 refills by 08/22/2023 * blood glucose (VelociDataUCH ULTRA TEST STRIPS) test strip(Started 11/17/2022) Use [...] FOR MUSCLE SPASM * TRUEplus 5-Bevel Pen Miracle 32G X 4 MM [facility](Started 10/19/2023) USE TO INJECT SUBCUTANEOUSLY DAILY * [...] * vitamin D, ergocalciferol, (Drisdol) 1.25 MG (95064 UT) capsule(Started 07/25/2024) TAKE ONE CAPSULE BY [...] Sex Assigned at Female 09/05/2021 1:34 PM [facility] Gender Identity Female 09/05/2021 1:34 PM [facility] Sexual Orientation Straight 09/05/2021 1: 34 PM [facility] Last Filed Vital Signs Vital Sign Reading Time Taken Comments Blood Pressure 113/81 09/27/2024 9:11 AM [facility] Pulse 69 09/27/2024 9:11 AM [facility] Temperature 36.7 C (98 F) 08/25/2024 1:42 PM [facility] Respiratory Rate 16 08/25/2024 2:05 PM [facility] Oxygen Saturation 98% 08/25/2024 2:05 PM [facility] Inhaled Oxygen Concentration - - Weight 84.8 kg (187 lb) 09/27/2024 9:11 AM [facility] Height 167.6 cm (5' 6 ) 09/27/2024 9:11 AM [facility] Body Mass Index 30.18 09/27/2024 9:11 AM [facility] Procedures * PROTEIN ELECTROPHORESIS URINE RANDOM PANEL(Performed [...] cancer * ENDOSCOPY, COLON, SCREENING(Performed 08/25/2024) * CT COLOREC CANC SCRN,SCOPY NOT HI RISK(Performed 08/25/2024) Performed for Screen for colon cancer * GLUCOSE - POINT OF CARE(Performed 08/25/2024) * FRACTIONAL EXHALED NITRIC OXIDE(Performed 07/07/2024) Performed for Moderate persistent asthma without complication (HCC) * PFT-LAB(Performed 07/07/2024) Performed for Moderate persistent asthma without complication (HCC) * CT ECG/REVIEW INTERPRET ONLY(Performed 06/30/2024) Performed for TIA (transient ischemic attack) * CT LIVER ELASTOGRAPHY(Performed 06/27/2024) Performed for Metabolic dysfunction-associated steatotic liver disease (MASLD) * CARDIAC PROCEDURE ORDER(Performed 06/22/2024) * CT POLYSOM 6/> YRS 4/> DEBBIE(Performed 06/03/2024) Performed [...] 05/24/2024) Performed for 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, unspecified vessel [...] NAFLD (nonalcoholic fatty liver disease), Gastroparesis * CT ED EGD FLEX TRANSORAL DX(Performed 03/18/2023) Performed for Nausea and vomiting, unspecified vomiting type, NAFLD (nonalcoholic fatty liver disease), Gastroparesis * EGD(Performed 03/18/2023) * GLUCOSE - POINT OF CARE(Performed 03/18/2023) * CT LIVER ELASTOGRAPHY(Performed 03/02/2023) Performed for NAFLD (nonalcoholic fatty liver disease) * CT LIVER ELASTOGRAPHY(Performed 07/21/2022) Performed for Elevated liver [...] 11/14/2021) Performed for 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, unspecified vessel or lesion type ([facility]) * HEMOGLOBIN A1C - POINT OF CARE (AMB) [facility](Performed 11/12/2021) Performed for Type 2 diabetes mellitus with hyperglycemia, with long-term current use of insulin (HCC) * PFT CARDIOPULMONARY EXERCISE TEST-CPET(Performed 11/07/2021) Performed for Moderate persistent asthma without complication ([facility]), Exertional shortness of breath * LIPASE BLOOD(Performed [...] URINE COMPREHENSIVE(Performed 10/15/2021) Performed for Dysuria * CT INSERT NON-INDWELLING BLADDER(Performed 10/15/2021) Performed for Dysuria [...] current use of insulin (HCC) * CT POLYSOM 6/>YRS CPAP 4/> PARM(Performed 06/19/2021) Performed for ESTHELA (obstructive sleep apnea) * FOLATE(Performed 05/14/2021) Performed for Neuropathy * VITAMIN D 25-HYDROXY(Performed 05/14/2021) Performed for Neuropathy, Microcytosis, Obesity (BMI 30-39.9) * IRON + TIBC + FERRITIN(Performed 05/14/2021) Performed for Neuropathy, Microcytosis * MRI BRAIN WO CONTRAST(Performed 03/22/2021) Performed for Memory loss * CT INSERT NON-INDWELLING BLADDER(Performed 02/15/2021) Performed for Urge [...] complication, with long-term current use of insulin ([facility]) * CARDIAC EKG ORDER(Performed 11/16/2020) * NM MYOCARD PERF REST STRESS(Performed 11/08/2020) Performed for 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, unspecified vessel or lesion type ([facility]) * HEMOGLOBIN A1C - POINT OF CARE (AMB) [facility](Performed 10/16/2020) Performed for Type 2 diabetes mellitus with hyperglycemia, with long-term current use of insulin ([facility]) * MICROALB/CREAT RATIO URINE RANDOM PANEL(Performed 07/04/2020) Performed for Type 2 diabetes mellitus with other specified complication, with long-term current use of insulin ([facility]) * IMMUNOSCORE IGE INTERP(Performed 07/04/2020) Performed for Severe persistent asthma without complication ([facility]) * CBC W AUTO DIFFERENTIAL(Performed 07/04/2020) Performed for Type 2 diabetes mellitus with other specified complication, with long-term current use of insulin ([facility]) * VITAMIN B12(Performed 07/04/2020) Performed for Type 2 diabetes mellitus with other specified complication, with long-term current use of insulin ([facility]) * TSH(Performed 07/04/2020) Performed for Type 2 diabetes mellitus with other specified complication, with long-term current use of insulin ([facility]) * HDL CHOLESTEROL(Performed 07/04/2020) Performed for Type 2 diabetes mellitus with other specified complication, with long-term current use of insulin ([facility]) * CHOLESTEROL BLOOD(Performed 07/04/2020) Performed for Type 2 diabetes mellitus with other specified complication, with long-term current use of insulin ([facility]) * COMPREHENSIVE METABOLIC PANEL(Performed 07/04/2020) Performed for Type 2 diabetes mellitus with other specified complication, with long-term current use of insulin ([facility]) * ALLERGEN RESPIRATORY PNL REGION 8 ([place])(Performed [...] COLI SHIGA-LIKE TOXIN(Performed 04/24/2016) * C DIFFICILE [facility] + TOXIN A+B(Performed 04/24/2016) Results * (ABNORMAL) PROTEIN ELECTROPHORESIS URINE RANDOM PANEL (09/16/2024 12:05 PM [facility]) Creatinine Urine 33 20 - 275 mg/dL [...] % [facility] Alpha-1 Globulin 0 % [facility] [id number] 0 % [facility] Beta-Globulin 0 % [facility] [...] ordered. REPORT COMMENT: FASTING:YES Test Performed at: [employer] [facility] [address] [place] [address] GRETEL ZACARIAS MD 09/16/2024 12:0 5 PM [facility] 09/16/2024 12:06 PM [facility] Yael Brock MD LAB - URINE CHEMISTR Y ORDERABLES [facility] [address] [place] [address] * PROTEIN ELECTROPHORESIS URINE RANDOM (09/13/2024 10:36 AM [facility]) Pathologist [facility] Interpretation Urine PE See Comment Normal Pattern 09/15/2024 2:59 PM [facility] Comment: Urine protein electrophoresis shows a band corresponding to albumin with small amounts of other nonspecific proteinuria. No monoclonal immunoglobulins detected. Felipa Myles PhD, [facility] Clinical Asphalt Dauber garnett fixer Protein Urine <7 Not Established mg/dL 09/15/2024 2:59 PM [facility] Urine URINE SPECIMEN OBTAINED BY CLEAN CATCH PROCEDURE / Unknown Collection / Unknown 09/13/2024 10:36 AM [facility] 09/13/2024 11:22 AM [facility] Yael Brock MD LAB - URINE CHEMISTR Y ORDERABLES [facility] [address] [place] [address], [facility] [phone] * EEG (09/13/2024 8:49 AM [facility]) Narrative Aj Hagan MD - 09/13/2024 8:49 AM [facility] Aj Hagan MD 09/13/2024 11:34 AM EEG [...] ONE TABLET BY MOUTH DAILY blood glucose (ProtoStarTOUCH ULTRA TEST STRIPS) test strip Use 1 [...] (one) tablet by mouth TRUEplus 5-Bevel Pen Miracle 32G X 4 MM [facility] USE TO INJECT SUBCUTANEOUSLY DAILY Trulicity 1.5 MG/0.5ML injection Inject 1.5 (one and one-half) mg subcutaneously every 7 days vitamin D, ergocalciferol, (Drisdol) 1.25 MG (64893 UT) capsule TAKE ONE CAPSULE BY MOUTH [...] (ABNORMAL) CBC W/ DIFFERENTIAL (08/30/2024 12:26 PM [facility]) Only the most recent of7 resultswithin the time period is included. WBC 9.5 4.0 - 10.7 x10E9/L 08/30/2024 12:45 PM [facility] RBC Count 5.09 3.90 - 5.20 x10E12/L 08/30/2024 12:45 PM [facility] Hemoglobin 12.6 11.9 - 15.8 g/dL 08/30/2024 12:45 PM [facility] Hematocrit 39.3 34.8 - 46.1 % 08/30/2024 12:45 PM [facility] MCV 77.2(L) 80.0 - 98.0 fL 08/30/2024 12:45 PM [facility] MCH 24.8(L) 26.7 - 33.6 pg 08/30/2024 12:45 PM [facility] MCHC 32.1 31.7 - 36.3 g/dL 08/30/2024 12:45 PM [facility] RDW-CV 14.5 11.3 - 14.8 % 08/30/2024 12:45 PM [facility] Platelet Count 224 150 - 420 x10E9/L 08/30/2024 12:45 PM [facility] MPV 11.7(H) 7.8 - 11.4 fL 08/30/2024 12:45 PM [facility] Neutrophil % 69.7 41.0 - 74.0 % 08/30/2024 12:45 PM [facility] Lymphocyte % 17.1 17.0 - 47.0 % 08/30/2024 12:45 PM [facility] Monocyte % 7.3 3.0 - 11.0 % 08/30/2024 12:45 PM [facility] Eosinophil % 4.8 0.0 - 7.0 % 08/30/2024 12:45 PM [facility] Basophil % 0.8 0.0 - 1.6 % 08/30/2024 12:45 PM [facility] Immature Granulocytes % 0.3 0.0 - 1.0 % 08/30/2024 12:45 PM [facility] Neutrophil Absolute 6.60 1.60 - 7.50 x10E9/L 08/30/2024 12:45 PM [facility] Lymphocyte Absolute 1.62 1.00 - 4.40 x10E9/L 08/30/2024 12:45 PM [facility] Monocyte Absolute 0.69 0.15 - 1.00 x10E9/L 08/30/2024 12:45 PM [facility] Eosinophil Absolute 0.45 0.00 - 0.60 x10E9/L 08/30/2024 12:45 PM [facility] Basophil Absolute 0.08 0.00 - 0.13 x10E9/L 08/30/2024 12:45 PM [facility] Blood BLOOD SPECIMEN / Unknown Lab Venipuncture / Unknown 08/30/2024 12:26 PM [facility] 08/30/2024 12:27 PM [facility] Michael Barlow MD LAB - HEMATOLOGY ORD LILA [address] [address], [facility] [phone] * VITAMIN B12 (08/30/2024 12:26 PM [facility]) Only the most recent of3 resultswithin the time period is included. Vitamin B12 491 213 - 816 pg/mL 08/30/2024 1:30 PM [facility] Blood BLOOD SPECIMEN / Unknown Lab Venipuncture / Unknown 08/30/2024 12:26 PM [facility] 08/30/2024 12:27 PM [facility] Yael Brock MD LAB - CHEMISTRY ORDJaden CREWS [address] [address], [place] [phone] * IMMUNOSCORE IGE INTERP (08/30/2024 12:17 PM [facility]) Only the most recent of2 resultswithin the time period is included. Immunocap Score See Note 5 3:58 PM [facility] ([facility]) Comment: REFERENCE INTERVAL: Allergen, Interpretation Less than [...] clinical allergy or even anaphylaxis. Performed By: [facility] [employer] [address] [place] [address] Material Flow Engineer: Benjamin Barnett MD, PhD CLIA Number: [id number] Blood BLOOD SPECIMEN / Unknown Lab Venipuncture / Unknown 08/30/2024 12:17 PM [facility] 08/30/2024 12:17 PM [facility] Michael Barlow MD LAB - SEROLOGY ORDER RUDY [facility] ([facility]) [address] [place] [address], [facility] * VITAMIN E (08/30/2024 12:17 PM [facility]) Only the most recent of2 resultswithin the time period is included. Vitamin E Alpha Tocopherol 7.9 5.5 - 18.0 mg/L 09/02/2024 3:57 PM [facility] ([facility]) Comment: This test was developed and its performance characteristics determined by [employer]. It has not been cleared or approved by the [place] Food and Drug Administration. This test was performed in a CLIA certified laboratory and is intended for clinical purposes. Vitamin E Gamma Tocopherol 1.4 0.0 - 6.0 mg/L 09/02/2024 3:57 PM [facility] ([facility]) Comment: Performed By: [employer] [address] [place] [address] Material Flow Engineer: Benjamin Barnett MD, PhD CLIA Number: [id number] Blood BLOOD SPECIMEN / Unknown Lab Venipuncture / Unknown 08/30/2024 12:17 PM [facility] 08/30/2024 12:17 PM [facility] Yael Brock MD LAB - CHEMISTRY ORDE ELEONORA [facility] Organization Address City/State/ZIP Co de Phone Number [facility]) [address] [place] [address] * (ABNORMAL) VITAMIN B6 (08/30/2024 12:17 PM [facility]) Pathologist [facility] Vitamin B6 18.9(L) 20.0 - 125.0 nmol/L 09/02/2024 6:31 AM [facility] ([facility]) Comment: INTERPRETIVE INFORMATION: Vitamin B6 (Pyridoxal 5-Phosphate) Pyridoxal 5'-phosphate measured in a specimen collected following an 8-hour or overnight fast accurately indicates vitamin B6 nutritional status. Non-fasting specimen concentration reflects recent vitamin intake. This test was developed and its performance characteristics determined by [facility]. It has not been cleared or approved by the US Food and Drug Administration. This test was performed in a CLIA certified laboratory and is intended for clinical purposes. Performed By: [facility] [employer] [address] [place] [address] Material Flow Engineer: Benjamin Barnett MD, PhD CLIA Number: [id number] Blood BLOOD SPECIMEN / Unknown Lab Venipuncture / Unknown 08/30/2024 12:17 PM [facility] 08/30/2024 12:17 PM [facility] Yael Brock MD LAB - CHEMISTRY CHARLI CREWS [facility] [facility]) [address] [place] [address], [facility] * (ABNORMAL) ALLERGEN RESPIRATORY PNL REGION 8 ([place]) (08/30/2024 12:17 PM [facility]) Only the most recent of2 resultswithin the time period is included. IgE Total 102 <=214 kU/L 09/01/2024 3:56 PM [facility] ([facility]) Comment: REFERENCE INTERVAL: Immunoglobulin E, Serum Access complete set of age- and/or gender-specific reference intervals for this test in the [facility] Laboratory Test Directory ([employer]). Allergen Bowen Elder <0.10 <=0.34 kU/L 09/01/2024 3:56 PM [facility] ([facility]) Allergen Alternaria alternata <0.10 <=0.34 kU/L 09/01/2024 3:56 PM [facility] ([facility]) Allergen [place] Maple 0.11 <=0.34 kU/L 09/01/2024 3:56 PM [facility]) Allergen Cat Dander <0.10 <=0.34 kU/L 09/01/2024 3:56 PM [facility] ([facility]) Allergen [place] <0.10 <=0.34 kU/L 09/01/2024 3:56 PM [facility] ([facility]) Allergen Greer Tree 0.25 <=0.34 kU/L 09/01/2024 3:56 PM [facility] ([facility]) Allergen Rough Pigweed 0.22 <=0.34 kU/L 09/01/2024 3:56 PM [facility] ([facility]) Allergen Sudanese Thistle 0.40(H) <=0.34 kU/L 09/01/2024 3:56 PM [facility] ([facility]) Allergen Ricardo Grass 0.81(H) <=0.34 kU/L 09/01/2024 3:56 PM [facility] ([facility]) Allergen Hormodendrum <0.10 <=0.34 kU/L 09/01/2024 3:56 PM [facility] ([facility]) Allergen Elm 0.24 <=0.34 kU/L 09/01/2024 3:56 PM [facility] ([facility]) Allergen [place] <0.10 <=0.34 kU/L 09/01/2024 3:56 PM [facility] ([facility]) Allergen A fumigatus IgE <0.10 <=0.34 kU/L 09/01/2024 3:56 PM [facility] ([facility]) Allergen Dermatophagoides pteronyssinus <0.10 <=0.34 kU/L 09/01/2024 3:56 PM [facility] ([facility]) Allergen Dermatophagoides farinae <0.10 <=0.34 kU/L 09/01/2024 3:56 PM [facility] ([facility]) Allergen Bermuda Grass <0.10 <=0.34 kU/L 09/01/2024 3:56 PM [facility] ([facility]) Allergen White Darrion 0.35(H) <=0.34 kU/L 09/01/2024 3:56 PM [facility] ([facility]) Allergen P. Notatum <0.10 <=0.34 kU/L 09/01/2024 3:56 PM [facility] ([facility]) Allergen Common Ragweed <0.10 <=0.34 kU/L 09/01/2024 3:56 PM [facility] ([facility]) Allergen Cockroach Scottish <0.10 <=0.34 kU/L 09/01/2024 3:56 PM [facility] ([facility]) Allergen Allison Tree <0.10 <=0.34 kU/L 09/01/2024 3:56 PM [facility]MENT [facility] ([facility]) Allergen [place] Tree <0.10 <=0.34 kU/L 09/01/2024 3:56 PM [facility]MENT [facility] ([facility]) Allergen Pecan Tree <0.10 <=0.34 kU/L 09/01/2024 3:56 PM [facility]PER[facility] DEPARTMENT [facility] ([facility]) Allergen Mouse Epithelium IgE <0.10 <=0.34 kU/L 09/01/2024 3:56 PM [facility]MENT [facility] ([facility]) Allergen Mucor racemosus <0.10 <=0.34 kU/L 09/01/2024 3:56 PM [facility] DE[facility]MENT [facility] ([facility]) Allergen [place] Tree IgE <0.10 <=0.34 kU/L 09/01/2024 3:56 PM [facility]PER[facility] DEPARTMENT [facility] ([facility]) Allergen Dog Dander <0.10 <=0.34 kU/L 09/01/2024 3:56 PM [facility]PER[facility] DEPARTMENT [facility] ([facility]) Comment: Performed By: [facility] [employer] [address] [place] [address] Material Flow Engineer: Benjamin Barnett MD, PhD CLIA Number: [id number] Blood BLOOD SPECIMEN / Unknown Lab Venipuncture / Unknown 08/30/2024 12:17 PM [facility] 08/30/2024 12:17 PM [facility] Michael Barlow MD LAB - CHEMISTRY CHARLI CREWS [facility] Organization Address City/State/ZIP Co de Phone Number [facility]) [address] [place] [address], [facility] * (ABNORMAL) [place] BLOOD (08/30/2024 12:17 PM [facility]) Copper 72.8(L) 80.0 - 155.0 ug/dL 09/01/2024 7:31 AM [facility]PARTMENT [facility] ([facility]) Comment: INTERPRETIVE INFORMATION: Copper, Serum or Plasma [...] developed and its performance characteristics determined by [employer]. It has not been cleared or approved by the [place] Food and Drug Administration. This test was performed in a CLIA certified laboratory and is intended for clinical purposes. Performed By: [facility] [address] [place] [address] Material Flow Engineer: Benjamin Barnett MD, PhD CLIA Number: [id number] Blood BLOOD SPECIMEN / Unknown Lab Venipuncture / Unknown 08/30/2024 12:17 PM [facility] 08/30/2024 12:17 PM [facility] Yael Brock MD LAB - CHEMISTRY ORDE ELEONORA [facility] ([facility]) [address] [place] [address], [facility] * PROTEIN ELECTROPHORESIS BLOOD (08/30/2024 12:17 PM [facility]) Interpretation Serum PE Normal Pattern Normal Pattern 09/01/2024 4:15 PM [facility] Comment: Serum capillary electrophoresis shows characteristic bands corresponding to albumin, alpha and beta globulins and polyclonal immunoglobulins. No monoclonal immunoglobulin detected. Non-secretory myeloma (NSM) and light chain only myeloma cannot be excluded based on this result. Recommend serum free light chain measurements for complete evaluation of plasma cell disorders. Felipa Myles PhD, [facility] Clinical Asphalt Dauber garnett fixer *The electrophoresis pattern and the interpretation have been reviewed and verified by the teaching physician. Protein Total 6.5 6.0 - 8.3 g/dL 09/01/2024 4:15 PM [facility] Albumin 3.9 3.3 - 5.6 g/dL 09/01/2024 4:15 PM [facility] Alpha-1 Globulins 0.2 0.2 - 0.4 g/dL 09/01/2024 4:15 PM [facility] Alpha-2 Globulins 0.7 0.5 - 1.0 g/dL 09/01/2024 4:15 PM [facility] Beta Globulins 0.7 0.6 - 1.1 g/dL 09/01/2024 4:15 PM [facility] Gamma Globulins 0.9 0.6 - 1.6 g/dL 09/01/2024 4:15 PM [facility]PERVISOR ST[facility]ING DEPARTMENT [facility] Blood BLOOD SPECIMEN / Unknown Lab Venipuncture / Unknown 08/30/2024 12:17 PM [facility] 08/30/2024 12:17 PM [facility] Yael Brock MD LAB - CHEMISTRY CHARLI CREWS [facility] [place] [id number] [place] [address], [place] [phone] * IGE BLOOD (08/30/2024 12:17 PM [facility]) IgE Total 113 <=214 kU/L 09/01/2024 5:23 AM [facility]PERVISOR STITCHING DEPARTMENT [employer] ([facility]) Comment: REFERENCE INTERVAL: Immunoglobulin E, Serum Access complete set of age- and/or gender-specific reference intervals for this test in the [employer] [facility] Test Directory ([employer]). Performed By: [facility] [address] [place] [address] Material Flow Engineer: Benjamin Barnett MD, PhD CLIA Number: [id number] Blood BLOOD SPECIMEN / Unknown Lab Venipuncture / Unknown 08/30/2024 12:17 PM [facility] 08/30/2024 12:17 PM [facility] Michael Barlow MD LAB - CHEMISTRY CHARLI CREWS [facility]) [address] [place] [address] * PATHOLOGY TISSUE (08/25/2024 1:24 PM [facility]) Only the most recent of4 resultswithin the time period is included. Case Report Surgical Pathology Report Case: [id number] Authorizing Provider: Ricardo Jiménez MD Collected: 08/25/2024 01:24 PM Ordering Location: [facility] ENDOSCOPY Received: 08/25/2024 03:33 PM Pathologist: Adrienne Haynes MD Specimen: Polyp Ascending, ascending colon polyp x1 08/26/2024 9:36 AM [facility]PERVISOR [facility] DEPARTMENT [facility] PATHOLOGY LAB Final Diagnosis Large intestine, ascending colon polyp x 1, biopsy (A): - Tubular adenoma 08/26/2024 9:36 AM SUPERVISOR STITCHING DEPARTMENT [facility] Microscopic Description and Comment Microscopic examination substantiates the final diagnosis. 08/26/2024 9:36 AM [facility] Clinical History The patient is a 59-year-old woman who presents for high risk colon cancer surveillance (personal history of colonic polyps). Operative procedure/findings: Colonoscopy - 2 mm ascending colon polyp, resected and retrieved. 08/26/2024 9:36 AM [facility] Gross Description The requisition and specimen(s) are identified with the patient's name, Sylvia Chatterjee. Received in formalin, specimen A , is a single parker-pink tissue fragment 0.2 x 0.2 x 0.1 cm submitted in toto in cassette A1. IKD 08/26/2024 9:36 AM [facility] Pathologist Location at [facility] 08/26/2024 9:36 AM [facility] Disclaimer The performance characteristics of all immunohistochemical and indirect immunofluorescence stains (if any) cited in this report were determined by the Histopathology Laboratory of [facility]. Some of these tests were [...] the attending (teaching) pathologist. 08/26/2024 9:36 AM [facility] Embedded Images 08/26/2024 9:36 AM [facility] Biopsy, NOS POLYP / Unknown 08/25/2024 1 :24 PM [facility]PERVISOR STITCHING DEPARTMENT 08/25/2024 3:33 PM [facility]PERVISOR STITCH[facility] DEPARTMENT Comment:Pre-op diagnosis: Screen for colon cancer [Z12.11] Ricardo Jiménez MD LAB - PATHOLOGY/CYTO LOGY ORDERABLES [facility] [address] [place], [place] [address] [place] [address] * ENDOSCOPY, COLON, SCREENING (08/25/2024 1:09 PM SUPERVISOR STITCHING DEPARTMENT) Report Endoscopy POC Endoscopy Department Report _ [...] entire procedure. Procedure Code(s): --- Professional --- 62427, Colonoscopy, flexible; with biopsy, single or multiple Diagnosis Code(s): --- Professional --- Z86.010, Personal history of colonic polyps K64.9, Unspecified hemorrhoids D12.2, Benign neoplasm of ascending colon K57.30, Diverticulosis of large intestine without perforation or abscess without bleeding CPT copyright 2021 [place] [employer]. All rights reserved. The codes documented in this report are preliminary and upon surgical coder review may be revised to meet current compliance requirements. Ricardo Jiménez, 08/25/2024 1:40:05 PM Note Initiated On: 08/25/2024 1:09 PM Number of Addenda: [address] [address] [facility] PROVATION 08/25/2024 1:09 PM SUPERVISOR STITCHING DEPARTMENT Ricardo Jiménez MD GI PROCEDURE ORDERAB LES [facility] [employer] * (ABNORMAL) GLUCOSE - POINT OF CARE (08/25/2024 12:00 PM SUPERVISOR STITCHING DEPARTMENT) Only the most recent of2 resultswithin the time period is included. Glucose WB/POC 189(H) 70 - 99 mg/dL 08/25/2024 1:05 PM SUPERVISOR STITCHING DEPARTMENT [facility] Specimen Type Venous 08/25/2024 1:05 PM SUPERVISOR STITCHING DEPARTMENT [facility] Blood BLOOD SPECIMEN / Unknown 08/25/2024 12:00 PM [facility]PER[facility] STITCHING DEPARTMENT 08/25/2024 1:05 PM SUPERVISOR STITCHING DEPARTMENT Ricardo Jiménez MD LAB - POINT OF CARE ORDERABLES [facility] [address] [place] [address], [facility] [phone] * Fractional Exhaled Nitric Oxide [facility] PFT Lab (07/07/2024 1:10 PM SUPERVISOR STITCHING DEPARTMENT) Impressions Harshal Simpson MD - 07/07/2024 1:10 PM SUPERVISOR STITCHING DEPARTMENT [facility] DEPARTMENT OF PULMONARY, CRITICAL CARE, AND SLEEP MEDICINE EXHALED NITRIC OXIDE (FeNO) Sylvia Chatterjee 07/09/2024 INTERPRETATION The measurement of fractional exhaled nitric oxide (FENO) was 39 ppb. IMPRESSION: 1. High fractional exhaled nitric oxide. 2. No prior study to compare Mustapha Sheikh MD Pulmonary & Critical Care Fellow Division of Pulmonary, Critical Care, and Sleep Medicine [facility] I have personally reviewed the fellow's interpretation of the test and made any necessary changes when needed. Harshal Simpson MD Cottage Master of Internal Medicine Division of Pulmonary, Critical Care and Sleep Medicine [facility] Pager: [phone] Narrative Harshal Simpson MD - 07/07/2024 1:10 PM SUPERVISOR STITCHING DEPARTMENT Mustapha Buckner MD 07/09/2024 4:58 PM Michael Barlow MD RESPIRATORY THERAPY ORDERABLES * Complete PFT [facility] PFT Lab (07/07/2024 1:10 PM SUPERVISOR STITCHING DEPARTMENT) Impressions Harshal Simpson MD - 07/07/2024 1:10 PM SUPERVISOR STITCHING DEPARTMENT [facility] DEPARTMENT OF PULMONARY, CRITICAL CARE, AND SLEEP [...] of Pulmonary, Critical Care, and Sleep Medicine [facility] I have personally reviewed the fellow's interpretation of the test and made any necessary changes when needed. Harshal Simpson MD Cottage Master of Internal Medicine Division of Pulmonary, Critical Care and Sleep Medicine [facility] Pager: [phone] Narrative Harshal Simpson MD - 07/07/2024 1:10 PM SUPERVISOR STITCHING DEPARTMENT Mustapha Buckner MD 07/09/2024 4:59 PM Michael Barlow MD RESPIRATORY THERAPY ORDERABLES * CT ECG/REVIEW INTERPRET ONLY (06/30/2024 10:41 AM SUPERVISOR STITCHING DEPARTMENT) Narrative Tammy Redding MD - 06/30/2024 10:41 AM SUPERVISOR STITCHING DEPARTMENT Tammy Redding MD 06/30/2024 10:45 AM HOLTER [...] arrhythmias. Tammy Redding MD ECG ORDERABLES * CT LIVER ELASTOGRAPHY (06/27/2024 3:31 PM SUPERVISOR STITCHING DEPARTMENT) Narrative Elena Hunter RN - 06/27/2024 3:31 PM SUPERVISOR STITCHING DEPARTMENT Elena Hunter RN 06/27/2024 3:58 PM Diagnosis: MASLD RN verified patient NPO for prior 3 hours. Procedure explained. Date of Exam: 06/27/2024 Liver Stiffness: (LSM, kPa) median: 5.4 IQR/Median% (ideally < 30%): 12% CAP (controlled attenuation parameter): 252 Technical Difficulty: None Ordering Provider: Kevin aVlle MD Phone Fax Kevin Valle MD PROCEDURE/MINOR SURG ICAL ORDERABLES * CARDIAC PROCEDURE ORDER (06/22/2024) Only the most recent of2 resultswithin the time period is included. 06/22/2024 Narrative 06/22/2024 Ordered by an unspecified provider. Scanned Document CARDIAC SERVICES ORD ERABLES * CT POLYSOM 6/> YRS 4/> DEBBIE (06/03/2024 3:49 PM CDT) Narrative Jose Vargas MD - 06/03/2024 3:49 PM CDT Jose Vargas MD 06/03/2024 3:53 PM [facility] Accredited by the [place] [employer] Medicine [facility], First Floor [address] [place] [address] Telephone : [phone] Medical Records Patient Name: Sylvia Chatterjee : 1965 Date of Study: 05/26/2024 Referring Physician: Stella Sneed MD Type of Montage: Respiratory Scoring System: [facility] FULL NIGHT DIAGNOSTIC POLYSOMNOGRAM INTERPRETATION (05/26/2024) Procedure: The polysomnogram was performed with a production control technologist in attendance. Frontal, central, and temporal [...] Syringe-Needle U-100 26G X 1/2 1 ML [facility], Use 1 Each once daily As backup to insulin pump, Disp: 100 Each, Rfl: 3 isosorbide mononitrate CR 24hr (Imdur) 120 MG tablet, Take 1 (one) tablet by mouth once daily, Disp: 90 tablet, Rfl: 3 Lancet Devices (B-D LANCET DEVICE) [facility], Use 1 Each 4 times daily - [...] mouth, Disp: , Rfl: TRUEplus 5-Bevel Pen Miracle 32G X 4 MM [facility], USE TO INJECT SUBCUTANEOUSLY DAILY, Disp: 90 Each, Rfl: 0 vitamin D, ergocalciferol, (Drisdol) 1.25 MG (23017 UT) capsule, TAKE ONE CAPSULE BY MOUTH [...] periodic limb movements, etc.) Jose Vargas MD, [facility], [facility], [facility] Hat Blocking Operator, [facility] Professor of Internal Medicine Adjunct Cottage Master of Neurology Division of Pulmonary, Critical Care, and Sleep Medicine [facility] This note was electronically signed on 06/03/2024. 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 Staff Referring Physician: Harley Iqbal Ordering Provider: Harley Iqbal Spouting Installer: Santa Carney Left Ventricle The left ventricle [...] (ABNORMAL) COMPREHENSIVE METABOLIC PANEL (10/13/2023 12:55 PM [facility]) Only the most recent of6 resultswithin the time period is included. BUN 28(H) 7 - 26 mg/dL 10/13/2023 1:57 PM [facility] Creatinine 0.93 0.56 - 0.96 mg/dL 10/13/2023 1:57 PM [facility] Sodium 133(L) 136 - 145 mmol/L 10/13/2023 1:57 PM [facility] Potassium 4.9(H) 3.5 - 4.5 mmol/L 10/13/2023 1:57 PM [facility] Chloride 99 98 - 107 mmol/L 10/13/2023 1:57 PM [facility] CO2 25 22 - 29 mmol/L 10/13/2023 1:57 PM [facility] Glucose 269(H) 70 - 115 mg/dL 10/13/2023 1:57 PM [facility] Calcium 9.3 8.4 - 10.2 mg/dL 10/13/2023 1:57 PM [facility] Protein Total 6.9 6.0 - 8.3 g/dL 10/13/2023 1:57 PM [facility] Albumin 4.0 3.4 - 5.0 g/dL 10/13/2023 1:57 PM [facility] Bilirubin Total 0.6 0.2 - 1.2 mg/dL 10/13/2023 1:57 PM [facility] Alkaline Phosphatase 81 40 - 150 U/L 10/13/2023 1:57 PM [facility] ALT 20 5 - 55 U/L 10/13/2023 1:57 PM [facility] AST 15 5 - 34 U/L 10/13/2023 1:57 PM [facility] Anion Gap 9 6 - 16 10/13/2023 1:57 PM [facility] BUN/Creatinine Ratio 30(H) 7 - 23 10/13/2023 1:57 PM [facility] Osmolality Calculated 291 275 - 295 mOsm/kg 10/13/2023 1:57 PM [facility] Albumin/Globulin Ratio 1.4 1.1 - 2.3 10/13/2023 1:57 PM SUPERVISOR STITCHING DEPARTMENT [facility] eGFR by CKD-EPI 71(L) >=90 mL/min/1.7 3 m2 10/13/2023 1:57 PM SUPERVISOR STITCHING DEPARTMENT [facility] Blood BLOOD SPECIMEN / Unknown Lab Venipuncture / Unknown 10/13/2023 12:55 PM SUPERVISOR STITCHING DEPARTMENT 10/13/2023 1:23 PM SUPERVISOR STITCHING DEPARTMENT Luiza Fernandez MD LAB - CHEMISTRY CHARLI CREWS Performing Organization Address City/[facility]/ZIP Co de Phone Number [facility] [address] [place] [address], [place] [phone] * TSH (10/13/2023 12:55 PM SUPERVISOR STITCHING DEPARTMENT) Only the most recent of3 resultswithin the time period is included. TSH 1.975 0.350 - 4.940 uIU/mL 10/13/2023 2:16 PM SUPERVISOR STITCHING DEPARTMENT [facility] Blood BLOOD SPECIMEN / Unknown Lab Venipuncture / Unknown 10/13/2023 12:55 PM SUPERVISOR STITCHING DEPARTMENT 10/13/2023 1:23 PM SUPERVISOR STITCHING DEPARTMENT Luiza Fernandez MD LAB - CHEMISTRY CHARLI CREWS Performing Organization Address [facility]/ZIP Co de Phone Number [facility] [address] [place] [address], [place] [phone] * HEMOGLOBIN A1C - POINT OF CARE (AMB) [facility] (10/13/2023 11:33 AM SUPERVISOR STITCHING DEPARTMENT) Only the most recent of10 resultswithin the time period is included. Pathologist [facility] Hemoglobin A1c POCT 10.1 % [address] BLOOD SPECIMEN / Unknown 10/13/2023 11:33 AM SUPERVISOR STITCHING DEPARTMENT Luiza Fernandez MD LAB - POINT OF CARE ORDERABLES Performing Organization Address [facility]/ZIP Co de Phone Number [facility] [address] [facility] [address] [facility] [place] [address], [place] [phone] * CELIAC DISEASE PROFILE W RFLX (07/07/2023 11:20 AM SUPERVISOR STITCHING DEPARTMENT) Endomysial Antibody IgA Negative Negative 07/08/2023 3:09 PM [facility]) TTG Antibody IgA <2 0 - 3 U/mL 07/08/20 3:09 PM [facility]) Comment: Negative 0 - 3 Weak Positive 4 - 10 Positive >10 Tissue Transglutaminase (tTG) has been identified as the endomysial antigen. Studies have demonstr- ated that endomysial IgA antibodies have over 99% specificity for gluten sensitive enteropathy. IgA Quantitative 193 87 - 352 mg/dL 07/08/2023 3:09 PM [facility]) Blood BLOOD SPECIMEN / Unknown Lab Venipuncture / Unknown 07/07/2023 11:20 AM SUPERVISOR STITCHING DEPARTMENT 07/07/2023 11:27 AM [facility] ([facility]) - 07/08/2023 3:09 PM SUPERVISOR STITCHING DEPARTMENT Performed at: [address] [place] [id number] Final Inspector Truck Trailer: Esteban Limon PhD, Phone: [phone] Luiza Fernandez MD LAB - CHEMISTRY CHARLI CREWS [facility]) [address] [place] [address], [facility] * IRON + TRANSFERRIN PANEL [w/Transferrin Sat % + TIBC] (07/07/2023 11:20 AM [facility]) Only the most recent of2 resultswithin the time period is included. Iron 48 40 - 150 ug/dL 07/07/2023 11:52 AM [facility] Transferrin 234 174 - 382 mg/dL 07/07/2023 11:52 AM [facility] Transferrin Saturation % 16 16 - 50 % 07/07/2023 11:52 AM [facility] TIBC Calculated 293 240 - 450 ug/dL 07/07/2023 11:52 AM [facility] Blood BLOOD SPECIMEN / Unknown Lab Venipuncture / Unknown 07/07/2023 11:20 AM SUPERVISOR STITCHING DEPARTMENT 07/07/2023 11:27 AM SUPERVISOR STITCHING DEPARTMENT Jose Vargas MD LAB - CHEMISTRY ORD ERABLES Performing Organization Address City/[facility]/ZIP Co de Phone Number [address] [address], [place] [phone] * FERRITIN (07/07/2023 11:20 AM SUPERVISOR STITCHING DEPARTMENT) Only the most recent of2 resultswithin the time period is included. Ferritin 148 13 - 204 ng/mL 07/07/2023 12:27 PM SUPERVISOR STITCHING DEPARTMENT [facility] Blood BLOOD SPECIMEN / Unknown Lab Venipuncture / Unknown 07/07/2023 11:20 AM SUPERVISOR STITCHING DEPARTMENT 07/07/2023 11:27 AM SUPERVISOR STITCHING DEPARTMENT Jose Vargas MD LAB - CHEMISTRY ORD ERABLES Performing Organization Address [facility] Co de Phone Number [address] [address], [place] [phone] * MICROALB/CREAT RATIO URINE RANDOM PANEL (06/09/2023 12:44 PM CDT) Only the most recent of4 resultswithin the time period is included. Albumin Random Urine 35.5 Not Established ug/mL 06/09/2023 2:28 PM CDT [facility] Creatinine Urine >400.00 Not Established mg/dL 06/09/2023 2:28 PM CDT [facility] Urine Albumin/Creati nine Ratio <9 <30 mg/g 06/09/2023 2:28 PM CDT [facility] Urine URINE SPECIMEN OBTAINED BY CLEAN CATCH PROCEDURE / Unknown Collection / Unknown 06/09/2023 12:44 PM CDT 06/09/2023 1:42 PM CDT Luiza Fernandez MD LAB - URINE CHEMISTR Y ORDERABLES Performing Organization Address City/[facility]/ZIP Co de Phone Number [address] [address], [place] [phone] * (ABNORMAL) VITAMIN D 25-HYDROXY (06/09/2023 12:41 PM CDT) Only the most recent of4 resultswithin the time period is included. Vitamin D, 25 Hydroxy 24.0(L) 30.0 - 80.0 ng/mL 06/09/2023 2:35 PM CDT [facility] Comment: The recommendations for 25-Hydroxy Vitamin [...] Vargas MD LAB - CHEMISTRY ORD ERABLES [address] [address], [facility] [phone] * LIPID PROFILE (06/09/2023 12:41 PM CDT) Cholesterol Total 129 <200 mg/dL 06/09/2023 2:23 PM CDT [facility] HDL 46 >40 mg/dL 06/09/2023 2:23 PM T [facility] Comment: ATP III Classification of HDL Cholesterol: <40 mg/dL: Considered a major risk factor. >60 mg/dL: Considered a negative risk factor. LDL Calculated 62 <100 mg/dL 06/09/2023 2:23 PM T [facility] Comment: ATP III Classification of LDL Cholesterol: <100 mg/dL: Optimal 100 - 129 mg/dL: Near Optimal/Above Optimal 130 - 159 mg/dL: Borderline High 160 - 189 mg/dL: High >190 mg/dL: Very High Triglycerides 107 <150 mg/dL 06/09/2023 2:23 PM CDT [facility] Comment: ATP III Classification of Triglycerides: <150 mg/dL: Normal 150 - 199 mg/dL: Borderline High 200 - 400 mg/dL: High >500 mg/dL: Very High Blood BLOOD SPECIMEN / Unknown Lab Venipuncture / Unknown 06/09/2023 12:41 PM CDT 06/09/2023 1:47 PM CDT Diana MISHRA LAB - CHEMISTRY CHARLI CREWS [facility] [address] [place] [address], [facility] [phone] * EGD (03/18/2023 9:35 AM CDT) Report [...] entire procedure. Procedure Code(s): --- Professional --- 29856, Esophagogastroduod enoscopy, flexible, transoral; with removal of tumor(s), polyp(s), or other lesion(s) by snare technique 74151, 59, Esophagogastroduod enoscopy, flexible, transoral; with biopsy, single or multiple Diagnosis Code(s): --- Professional --- K31.7, Polyp of stomach and duodenum R11.15, Cyclical vomiting syndrome unrelated to migraine CPT copyright 2021 [place] [employer]. All rights reserved. The codes documented in this report are preliminary and upon surgical coder review may be revised to meet current compliance requirements. Edwin Dutton MD 03/18/2023 10:08:07 AM Note Initiated On: 03/18/2023 9:35 AM Number of Addenda: [id number] [place] [address] PROVATION 03/18/2023 9:35 AM CDT Edwin Dutton MD GI PROCEDURE ORDERABLES [facility] PROVATION * PROC FIBROSCAN (03/02/2023 4:14 PM [...] patients with nonalcoholic fatty liver disease. Gastroenterology 2019;156:0289-6050. Melissa MS, Jasmina R, Van Veronika ML, [...] at-risk nonalcoholic steatohepatitis (REARDON) in a [place] cohort and comparison to other non-invasive algorithms. PLoS ONE (2021) 17: w4376601. John AJ, Natasha J, Mary ZM, et al. Enhanced diagnosis of advanced fibrosis and cirrhosis in individuals with NAFLD using FibroScan-based Agile scores. J Hepatol (2022) 78: 247-259. Fibroscan LSM can also be used with laboratory parameters without formulas to assess prognosis. According to the Baveno-VII criteria (Nobles, 202), Fibroscan LSM ?15 kPa plus a platelet count of ?[id number]/L rules out clinically significant portal hypertension (sensitivity and negative predictive value >90%) in patients with compensated advanced chronic liver disease. Nobles R, Jose J, Hector-Annel G, Larry T, Jerald C on behalf of the [facility] VII Faculty. [facility] VII--Renewing consensus in portal hypertension. J Hepatol (2021) 76: 959-974 Assessing the likelihood of advanced fibrosis in patients with indeterminate liver stiffness measurement (LSM) by Fibroscan (e.g., 8-15 kPa) can be improved by also calculating the FIB-4 score (Ynes et al. Hepatology Communications 2019;3:8246-4583) or NAFLD Fibrosis score (Pedraza et al. Clinical Gastroenterology and Hepatology 2019;17:2822-7223 using routine clinical data. Note: 1. Fibroscan [...] additional interpretive data was last updated 12/27/22.) [email or web address] Mily Mcintosh MD PROCEDURE/MINOR SURG ICAL ORDERABLES * CT LIVER ELASTOGRAPHY (07/21/2022 2:31 PM SUPERVISOR STITCHING DEPARTMENT) Narrative Mely Hebert RN - 07/21/2022 2:31 PM SUPERVISOR STITCHING DEPARTMENT Mely Hebert RN 07/23/2022 2:10 PM Diagnosis: Elevated liver enzymes RN verified patient not , no implanted devices and NPO for prior 3 hours. Date of Exam: 07/21/2022 Liver Stiffness: (LSM, kPa) median: 10.9 IQR (interquartile range): 1.6 IQR/Median% (ideally < 30%): 15% CAP (controlled attenuation parameter): 314 Technical Difficulty: None Ordering Provider: Dr. Palma Phone Fax Ursula Seha MD PROCEDURE/MINOR ZUNIGA RGICAL ORDERABLES * IRON + TIBC + FERRITIN (12/02/2021 1:03 PM CDT) Only the most recent of2 resultswithin the time period is included. [facility] Iron 115 45 - 160 mcg/dL [facility] TIBC 367 250 - 450 mcg/dL (calc) [facility] % Saturation 31 16 - 45 % (calc) [facility] Ferritin 59 16 - 232 ng/mL [facility] Comment: Test Performed at: [facility] [address] [place] [address] NICO WATSON DO,MPH Blood BLOOD SPECIMEN / Unknown 12/02/2021 1:03 PM CDT 12/02/2021 1:04 PM CDT Breanna [facility] - CH EMISTRY ORDERABLES [facility] [address] [place] [address] * (ABNORMAL) CBC W/O DIFFERENTIAL (12/02/2021 1:03 PM CDT) [facility] White Blood Cell Count 8.9 3.8 - [...] 12.5 fL [facility] Comment: Test Performed at: [facility] [address] [place] [address] NICO WATSON DO,MPH Blood BLOOD SPECIMEN / Unknown 12/02/2021 1:03 PM CDT 12/02/2021 1:04 PM CDT Breanna Layton [facility] - HE MATOLOGY ORDERABLES [facility] [address] [place] [address] * ECHO COMPLETE (11/14/2021 12:06 PM CDT) Anatomical Region Laterality Modality Chest Echo 11/14/2021 11:0 0 AM CDT Narrative Procedure Note Mely Bermudez MD - 11/20/2021 Idania Hobson APRN-[facility] ECHOCARDIOGRAPHY RADIANT * Cardiopulmonary Exercise Test [facility] (11/07/2021 2:59 PM CDT) Impressions Nicholas Manley [...] of Pulmonary, Critical Care, & Sleep Medicine [facility] I have reviewed the above study and agree with the interpretation as listed above. Nicholas Manley MD Cottage Master of Pulmonary & Critical Care Medicine [facility] Pager [phone] Narrative Nicholas Manley MD - 11/07/2021 2:59 PM CDT Roxie Benitez DO 11/11/2021 11:06 AM Susan Pepe MD PFT ORDERABLES * C DIFFICILE TOXIN/GDH W REFLX TO PCR (10/15/2021 1:03 PM SUPERVISOR STITCHING DEPARTMENT) C difficile Toxin/GDH w/Reflex to PCR [facility] Comment: CLOSTRIDIUM DIFFICILE TOXIN/GDH W/REFL TO PCR Micro Number: [id number] Test Status: Final Specimen Source: Stool Specimen Quality: Adequate GDH Antigen: Not Detected Toxin A and B: Not Detected COMMENT: No toxigenic C. difficile detected For additional information, please refer to http://education.640 Labs.Avista/faq/[email or web address] (This link is being provided for informational/educational purposes only.) Test Performed at: [facility] [address] GRETEL ZACARIAS MD Stool STOOL SPECIMEN / Unknown 10/15/2021 1:03 PM SUPERVISOR STITCHING DEPARTMENT 10/15/2021 1:04 PM SUPERVISOR STITCHING DEPARTMENT Ursula Shea MD LAB - MICROBIOLOGY ORDERABLES Performing Organization Address [facility] de Phone Number [address] [address] * CULTURE STOOL PANEL (10/15/2021 1:03 PM SUPERVISOR STITCHING DEPARTMENT) Campylobacter Antigen [facility] Comment: CAMPYLOBACTER SPP. AG,EIA Micro Number: [id number] Test Status: Final Specimen Source: Stool Specimen Quality: Adequate Campy Ag Result: Not Detected Reference Range: Not Detected Test Performed at: [facility] [employer] [address] GRETEL ZACARIAS MD EIA [facility] Comment: SHIGA TOXINS, EIA W/RFL TO E.COLI O157 CULTURE Micro Number: [id number] Test Status: Final Specimen Source: Stool Specimen Quality: Adequate Shiga Toxin: Not Detected Reference Range: Not Detected Culture [facility] Comment: SALMONELLA AND SHIGELLA, CULTURE Micro Number: [id number] Test Status: Final Specimen Source: Stool Specimen Quality: Adequate Result: No Salmonella or Shigella isolated Test Performed at: [facility] [address] GRETEL ZACARIAS MD Stool STOOL SPECIMEN / Unknown 10/15/2021 1:03 PM SUPERVISOR STITCHING DEPARTMENT 10/15/2021 1:04 PM SUPERVISOR STITCHING DEPARTMENT Ursula Shea MD LAB - MICROBIOLOGY ORDERABLES Performing Organization Address [facility] [place] [address] * LIPASE BLOOD (10/15/2021 1:03 PM SUPERVISOR STITCHING DEPARTMENT) Only the most recent of3 resultswithin the time period is included. Lipase 35 7 - 60 U/L [facility] Comment: Test Performed at: [facility] [employer] [address] [address] NICO WATSON DO,MPH Blood BLOOD SPECIMEN / Unknown 10/15/2021 1:03 PM SUPERVISOR STITCHING DEPARTMENT 10/15/2021 1:04 PM SUPERVISOR STITCHING DEPARTMENT Ursula Shea MD LAB - CHEMISTRY OR DERABLES [address] [address] * (ABNORMAL) CULTURE URINE COMPREHENSIVE (10/15/2021 11:57 AM SUPERVISOR STITCHING DEPARTMENT) Only the most recent of2 resultswithin the time period is included. Culture (A) [facility] Comment: CULTURE, URINE, SPECIAL Micro Number: [id number] Test Status: Final Specimen Source: Urine cathet [...] cefuroxime, cephalexin and loracarbef. Test Performed at: [facility] [address] GRETEL ZACARIAS MD Microbiology URINE SPECIMEN COLLECTION, CATHETERIZED / Unknown 10/15/2021 11:57 AM SUPERVISOR STITCHING DEPARTMENT 10/16/2021 2:27 AM SUPERVISOR STITCHING DEPARTMENT Jacklyn Sanabria MD LAB - MICROBIOLOGY O RDERABLES [facility] [address] [place] [address] * CT INSERT NON-INDWELLING BLADDER (10/15/2021 11:56 AM SUPERVISOR STITCHING DEPARTMENT) Narrative Jacklyn Sanabria Che, MD - 10/15/2021 11:56 AM SUPERVISOR STITCHING DEPARTMENT Jacklyn Sanabria Che, MD 10/15/2021 11:57 AM [...] POCT neg Ketones UA POCT neg Specific [place] UA 1.015 Blood Urine POCT neg pH UA 6.0 Protein UA neg Urobilinogen UA 0.2 Nitrite UA + WBC UA + Urine URINE / Unknown 10/15/2021 Jacklyn Sanabria MD LAB - POINT OF CARE ORDERABLES * COMPLETE PFT W/WO BRONCHODILATOR (09/24/2021 11:18 AM SUPERVISOR STITCHING DEPARTMENT) Impressions Michael Barlow MD - 09/24/2021 11:18 AM SUPERVISOR STITCHING DEPARTMENT [facility] DEPARTMENT OF PULMONARY, CRITICAL CARE, AND SLEEP [...] of Pulmonary, Critical Care and Sleep Medicine [facility] Pager: [phone] I have reviewed the test data and agree with Dr. Peter's interpretations. Michael Barlow MD 09/25/2021 Narrative Michael Barlow MD - 09/24/2021 11:18 AM SUPERVISOR STITCHING DEPARTMENT Annette Peter MD 09/24/2021 2:23 PM Harshal Simpson MD RESPIRATORY THERAPY ORDERABLES * CT LUNG SCREEN LOW DOSE (09/24/2021 10:13 AM SUPERVISOR STITCHING DEPARTMENT) Anatomical Region Laterality Modality Chest Computed Tomogra phy 09/24/2021 10:5 2 AM SUPERVISOR STITCHING DEPARTMENT Impressions 09/24/2021 11:08 AM SUPERVISOR STITCHING DEPARTMENT Impression: 1.5 mm pulmonary nodule in the [...] 11:08 AM . Narrative 09/24/2021 11:08 AM SUPERVISOR STITCHING DEPARTMENT Procedure Information DATE: 09/24/2021 10:14 AM EXAMINATION: [...] BRONCHIAL CHALLENGE WITH METHACHOLINE (08/01/2021 4:37 PM SUPERVISOR STITCHING DEPARTMENT) Impressions Arik Daniels MD - 08/01/2021 4:37 PM SUPERVISOR STITCHING DEPARTMENT [facility] DEPARTMENT OF PULMONARY, CRITICAL CARE, AND SLEEP [...] of Pulmonary, Critical Care and Sleep Medicine [facility] I have personally reviewed pulmonary function test data and finding. I concur with fellow's note. Arik Daniels MD Narrative Arik Daniels MD - 08/01/2021 4:37 PM SUPERVISOR STITCHING DEPARTMENT Noe Carbone MD 08/03/2021 7:22 AM Franklin Castano MD PFT ORDERABLES * CT POLYSOM 6/>YRS CPAP 4/> PARM (06/19/2021 9:17 AM CDT) Narrative Jose Vargas MD - 06/19/2021 9:17 AM CDT Jose Vargas MD 06/19/2021 9:18 AM [facility] Accredited by the [place] [employer] Medicine [facility], First Floor [address] [place] [address] Telephone : [phone] Medical Records Patient Name: Sylvia Waldrop : 1965 Date of Study: 06/18/2021 Referring Physician: Dea Norman MD Type of Montage: Respiratory Scoring System: [facility] FULL NIGHT THERAPEUTIC POLYSOMNOGRAM INTERPRETATION Procedure: The polysomnogram was performed with a production control technologist in attendance. Central, occipital, and temporal [...] tablet, Rfl: 3 ergocalciferol (DRISDOL) 1.25 MG (64443 UT) capsule, Take 1 (one) capsule by [...] ameliorating obstructive sleep apnea. Jose Vargas MD, [facility], [facility], [facility] Hat Blocking Operator, [facility] Professor of Internal Medicine Adjunct [place] Master of Neurology Division of Pulmonary, Critical Care, and Sleep Medicine [facility] This note was electronically signed on 06/19/2021. CC: Dea Norman MD [address] [facility] [place] [address] Dea Norman MD Breanna A Dettenmeier APNP-DIRECTOR WRITING PROCEDUR E/MINOR SURGICAL ORDERABLES * FOLATE (05/14/2021 11:55 AM CDT) [facility] Folate 9.4 ng/mL [facility] Comment: Reference Range Low: <3.4 Borderline: 3.4-5.4 Normal: >5.4 Test Performed at: [facility] [address] [address] [place] [address] NICO WATSON DO,MPH Blood BLOOD SPECIMEN / Unknown 05/14/2021 11:55 AM CDT 05/14/2021 11:55 AM CDT Breanna Layton APNP-DIRECTOR WRITING LAB - CH EMISTRY ORDERABLES [facility] [address] [place] [address] * MRI BRAIN WO CONTRAST (03/22/2021 3:13 [...] . Ant Rojas MD MR ORDERABLES * CT INSERT NON-INDWELLING BLADDER (02/15/2021 7:10 PM CDT) [...] on 11/08/2020 2:50 PM . I, Dr. JFEFREY SCHULTE M.D. have personally reviewed and interpreted this examination/study. This report was electronically signed by JEFFREY SCHULTE M.D. on 11/08/2020 4:54 PM . Narrative 11/08/2020 4:54 PM CDT Rest and Pharmacologic stress SPECT/CT myocardial imaging with gating- 1 day protocol History: 55 year oldfemalewith [facility] significant for microvascular disease and DM, HTN, [...] M.D. on11/08/2020 4:54 PM . Idania Hobson LEGAL [facility] ORDERABLES * (ABNORMAL) HDL CHOLESTEROL (07/04/2020 2:15 PM SUPERVISOR STITCHING DEPARTMENT) HDL 37(L) >40 mg/dL 07/04/2020 2:53 PM SUPERVISOR STITCHING DEPARTMENT [facility] Comment: ATP III Classification of HDL Cholesterol: <40 mg/dL: Considered a major risk factor. >60 mg/dL: Considered a negative risk factor. Blood BLOOD SPECIMEN / Unknown Lab Venipuncture / Unknown 07/04/2020 2:15 PM SUPERVISOR STITCHING DEPARTMENT 07/04/2020 2:22 PM SUPERVISOR STITCHING DEPARTMENT Madan Desai MD LAB - CHEMISTRY CHARLI GWENDOLYNDEANGELO [address] [address], [place] [phone] * CHOLESTEROL BLOOD (07/04/2020 2:15 PM SUPERVISOR STITCHING DEPARTMENT) Cholesterol Total 125 <200 mg/dL 07/04/2020 2:53 PM SUPERVISOR STITCHING DEPARTMENT [facility] Blood BLOOD SPECIMEN / Unknown Lab Venipuncture / Unknown 07/04/2020 2:15 PM SUPERVISOR STITCHING DEPARTMENT 07/04/2020 2:22 PM SUPERVISOR STITCHING DEPARTMENT Madan Desai MD LAB - CHEMISTRY FLORISSANTJaden CREWS Performing Organization Address [facility] Co de Phone Number [address] [address], [place] [phone] * CT CHEST WO CONTRAST (02/20/2020 3:22 [...] clinical correlation. Dictated by Ean Nelson MD (anesthesiology resident). I, Dr. Jamaica SENIOR M.D. have personally [...] visible osseous structures are intact. Procedure Note Carmita Senior MD - 02/23/2020 EXAMINATION: Computed tomography [...] clinical correlation. Dictated by Ean Nelson MD (anesthesiology resident). I, Dr. Jamaica SENIOR M.D. have personally reviewed and interpretedthis examination/study. This report was electronically signed by [place] SENIOR M.D. on 02/23/2020 9:46 AM . Harshal Simpson MD CT ORDERABLES * COMPLETE PFT W/WO BRONCHODILATOR (02/20/2020 2:00 PM CDT) Impressions Dana Sneed MD - 02/20/2020 2:00 PM CDT [facility] DEPARTMENT OF PULMONARY, CRITICAL CARE, AND SLEEP [...] of Pulmonary, Critical Care and Sleep Medicine [facility] ATTENDING PHYSICIAN ATTESTATION/DANA SNEED M.D.: I have personally reviewed and interpreted the above test and I have made the necessary changes if needed to the above interpretation. Pager: [phone] Narrative Dana Sneed MD - 02/20/2020 2:00 PM CDT Champ Salmon MD 02/20/2020 5:18 PM Harshal Simpson MD RESPIRATORY THERAPY ORDERABLES * PROC EKG IN CLINIC (10/10/2019 5:34 PM SUPERVISOR STITCHING DEPARTMENT) Narrative Madison Camargo MD - 10/10/2019 5:34 PM SUPERVISOR STITCHING DEPARTMENT Madison Camargo MD 10/10/2019 5:34 PM NSR Madison Camargo MD ECG ORDERABLES * (ABNORMAL) HEMOGLOBIN A1C (08/20/2019 11:39 AM SUPERVISOR STITCHING DEPARTMENT) Only the most recent of2 resultswithin the time period is included. Hemoglobin A1c 9.6(H) 4.8 - 5.6 % [facility] INSURANCE BILL Comment: . Prediabetes: 5.7 - 6.4 Diabetes: >6.4 Glycemic control for adults with diabetes: <7.0 FASTING Blood BLOOD SPECIMEN / Unknown 08/20/2019 11:39 AM SUPERVISOR STITCHING DEPARTMENT 08/20/2019 Narrative Resulting Agency Comment Lab Testing performed [facility]: [facility] [address] [facility] [id number] Madan Desai MD LAB - CHEMISTRY CHARLI CREWS Performing Organization Address [facility] Co de Phone Number [facility] [address] [place] [address] * CHLORIDE FECES (04/28/2019 2:30 PM CDT) Chloride Fecal 37 mmol/L 05/04/2019 2:06 AM CDT [facility] ([facility]) Comment: INTERPRETIVE INFORMATION: Fecal Chloride A reference interval has not been established for fecal specimens. Test developed and characteristics determined by [employer]. See Compliance Statement B: [employer]/CS Stool STOOL SPECIMEN / Unknown Collection / Unknown 04/28/2019 2:30 PM CDT 04/28/2019 2:44 PM CDT Narrative [facility] ([facility]) - 05/04/2019 2:06 AM CDT Performed at: [facility] [employer] [address] [id number] Final Inspector Truck Trailer: Aquilino Boles MD, Phone: [phone] Petr Raygoza MD LAB - BODY FLUID OR DERABLES Performing Organization Address City/[facility]/ZIP Co de Phone Number [facility]) [address] [place] [address], [facility] * SODIUM FECES (04/28/2019 2:30 PM CDT) [facility] Signature Sodium Feces 75 mmol/L 05/04/2019 2:06 AM CDT [facility] ([facility]) Comment: INTERPRETIVE INFORMATION: Fecal Sodium A reference interval has not been established for fecal specimens. Test developed and characteristics determined by [employer]. See Compliance Statement B: [employer] [place] Stool STOOL SPECIMEN / Unknown Collection / Unknown 04/28/2019 2:30 PM CDT 04/28/2019 2:43 PM CDT Narrative [facility] ([facility]) - 05/04/2019 2:06 AM CDT Performed at: - [facility] [address] [place] [id number] Final Inspector Truck Trailer: Aquilino Boles MD, Phone: [phone] Petr Raygoza MD LAB - BODY FLUID OR DERABLES [facility]) [address] [place] [address], [facility] * NM GASTRIC EMPTYING (04/28/2019 [...] meal is labeled with 0.5 mCi of [id number] sulfur colloid. FINDINGS: After ingestion of solid [...] meal is labeled with 0.5 mCi of [id number] sulfur colloid. FINDINGS: After ingestion of solid [...] Petr Raygoza MD [place] ORDERABLES * PT-INR [facility] (08/12/2018 3:26 PM SUPERVISOR STITCHING DEPARTMENT) Only the most recent of2 resultswithin the time period is included. PT 12.8 12.1 - 14.8 Seconds 08/12/2018 4:25 PM [facility] INR 1.0 See Comment 08/12/2018 4:25 PM [facility] Comment: The suggested therapeutic range for standard coumadin (warfarin) therapy is an INR of 2.0-3.0. For high-risk patients (Mechanical Mitral Valve Prosthesis, etc.), the suggested prophylactic therapeutic range is an INR of 2.5-3.5. Blood BLOOD SPECIMEN / Unknown Lab Venipuncture / Unknown 08/12/2018 3:26 PM SUPERVISOR STITCHING DEPARTMENT 08/12/2018 3:50 PM SUPERVISOR STITCHING DEPARTMENT Petr Raygoza MD LAB - COAGULATION O RDERABLES Performing Organization Address City/[facility]/ZIP Co de Phone Number [facility] [address] [phone] * VITAMIN A (08/12/2018 3:26 PM SUPERVISOR STITCHING DEPARTMENT) Vitamin A 34.0 20.1 - 62.0 ug/dL 08/16/2018 2:10 PM SUPERVISOR STITCHING DEPARTMENT [facility] ([facility]) Comment: Please note reference interval change Reference [...] Lab Venipuncture / Unknown 08/12/2018 3:26 PM SUPERVISOR STITCHING DEPARTMENT 08/12/2018 3:51 PM SUPERVISOR STITCHING DEPARTMENT Narrative [facility] ([facility]) - 08/16/2018 2:10 PM SUPERVISOR STITCHING DEPARTMENT Performed at: [address] [place] [address] [id number] Final Inspector Truck Trailer: Sanudra Cosme MD, Phone: [phone] Petr Raygoza MD LAB - CHEMISTRY ORD ERABLES Performing Organization Address City/[facility]/ZIP Co de Phone Number [facility] ([facility]) [address] [place] [id number] * ECHO 2D ONLY WO COLOR OR DOPPLER (02/20/2017 2:25 PM CDT) Anatomical Region Laterality Modality Other Narrative 02/20/2017 2:25 PM CDT [place] [address] CARDIOLOGY 2-D & M-Mode Echocardiogram Report Color Flow Doppler Report Patients Name: Sylvia Chatterjee : 1965 Age: 52 y.o. Gender: female Referring Physician: Holly Lopez DO [address] [facility] [address] [place] [address] Ordering Physician: Primary Care Physician: Isa Sneed Date of Test: TAPE#: Spouting Installer: zora Height: Weight: BSA: Introduction: Sylvia Chatterjee [...] Procedure Note Provider, MD Sloane - 01/29/2018 [place] [address] CARDIOLOGY 2-D & M-Mode Echocardiogram Report Color Flow Doppler Report Patients Name: Sylvia Chatterjee : 1965 Age: 52 y.o. Gender: female Referring Physician: Holly Lopez, DO [address] [address] [place] [address] Ordering Physician: Primary Care Physician: Isa Sneed Date of Test: TAPE#: Spouting Installer: ds Height: Weight: BSA: Introduction: Sylvia Chatterjee [...] PM CDT) Russell Michelle MD ECG ORDERABLES [facility] RADIOLOGY * (ABNORMAL) GLUCOSE ACCUCHECK (12/22/2016 8:54 AM CDT) Only the most recent of3 resultswithin the time period is included. [facility] Signature Glucose, Fingerstick 119(H) 70-115mg/d L mg/dL [facility] RALS (BEAKER) Comment:Gas Engine Operator: JUAN Stout 12/22/2016 8:54 AM CDT Josy Mckenzie MD LAB - CHEMISTRY CHARLI CREWS [facility] SHAHLA (STERLINGAKER) * GLUCOSE - POINT OF CARE (AMB) U (12/09/2016 3:30 PM CDT) Only the most recent of2 resultswithin the time period is included. Glucose POCT 398 mg/dL [facility] Capillary blood specimen (specimen) 12/09/2016 3:30 PM CDT Tamiko Cunningham LEGAL EDITOR-DIRECTOR WRITING LAB - POINT O F CARE ORDERABLES Performing Organization Address [facility] Co de Phone Number [facility] * (ABNORMAL) CULTURE DUODENAL ASPIRATE QUANT (08/01/2016 12:17 PM SUPERVISOR STITCHING DEPARTMENT) Culture Quant-Duodenal VIRIDANS STREPTOCOCCI (A) [facility] Comment:Growth of - 35,000 c fu/ml Viridans Streptococci Duodenum PART OF DUODENUM / Unknown 08/01/2016 12:17 PM SUPERVISOR STITCHING DEPARTMENT 08/01/2016 2:18 PM SUPERVISOR STITCHING DEPARTMENT Latonia Hubbard MD LAB - MICROBIOLOGY O RDERAESTEBAN Performing Organization Address [facility] Co de Phone Number [address] [phone] * ACTH 60 MINUTES (05/30/2016 1:00 PM CDT) Cortisol 60 Min 25.4 >=20.0 mcg/dL [facility] Blood specimen (specimen) BLOOD SPECIMEN / Unknown 05/30/2016 1:00 PM CDT 05/30/2016 1:05 PM CDT Glory Chris MD LAB - CHEMISTRY CHARLI CREWS Performing Organization Address [facility] Co de Phone Number [address] [phone] * ACTH 30 MINUTES (05/30/2016 12:28 PM CDT) Cortisol 30 Min 21.3 >=20.0 mcg/dL [facility] Blood specimen (specimen) BLOOD SPECIMEN / Unknown 05/30/2016 12:28 PM CDT 05/30/2016 12:35 PM CDT Historical Provider LAB - CHEMISTRY O RDERABLES [address] [phone] * ACTH CORTISOL BASELINE (05/30/2016 11:25 AM CDT) Cortisol Baseline 6.8 No Reference Range Established mcg/dL [facility] Blood specimen (specimen) BLOOD SPECIMEN / Unknown 05/30/2016 11:25 AM CDT 05/30/2016 12:04 PM CDT Historical Provider LAB - CHEMISTRY O WENDY Performing Organization Address City/[facility]/ZIP Co de Phone Number [address] [phone] * ACTH (05/30/2016 11:25 AM CDT) Only the most recent of2 resultswithin the time period is included. ACTH 24.2 7.2 - 63.3 pg/mL [facility] ([place]) Comment:ACTH reference inter nisa for samples collected between 7 and 10 AM. Blood specimen (specimen) BLOOD SPECIMEN / Unknown 05/30/2016 11:25 AM CDT 05/30/2016 12:04 PM CDT Narrative [facility] ([place]) - 06/02/2016 3:11 PM CDT Performed at: [address] [place] [address] [id number] Final Inspector Truck Trailer: Esteban Limon PhD, Phone: [phone] Historical Provider MD LAB - CHEMISTRY O RDERABLES [facility]) * CT ABDOMEN PELVIS W [...] Screen Urine Negative Negative: < 1000 ng/mL [facility] Barbiturates Screen Urine Negative Negative: < 200 ng/mL [facility] Benzodiazepine Screen Urine Negative Negative: < 200 ng/mL [facility] Opiates Urine Negative Negative: < 300 ng/mL [facility] Cocaine Metabolites Urine Negative Negative: < 300 ng/mL [facility] Phencyclidine Screen Urine Negative Negative: < 25 ng/ml [facility] Cannabinoids Screen Urine Negative Negative: <50 ng/mL [facility] Methadone Screen Urine Negative Negative: < 300 ng/mL [facility] Urine specimen (specimen) 05/06/2016 6:59 PM CDT 05/06/2016 7:07 PM CDT Narrative [facility] - 05/06/2016 7:26 PM CDT The Urine Toxicology Screening Panel does not screen for Propoxyphene, Meprobamate, Carisoprodol, Trazodone, qfcm-iad-wtehprg medications and/or volatiles (Acetone, Isopropanol, Methanol or Ethylene Glycol). Ethanol, Salicylate, Acetaminophen, Tricyclic Antidepressants and several therapeutic drugs may be individually assayed in serum or plasma specimen. Toxicology testing by the [facility] is an aid to medical diagnosis and treatment of patients. No documented chain of custody was maintained. Results are intended to be used for clinical purposes only. Du Gomez MD LAB - URINE CHEMISTR Y ORDERABLES [facility] [address] [phone] * URINALYSIS REFLEX TO MICROSCOPIC NO CULTURE (05/06/2016 6:59 PM CDT) Color UA Straw Straw, Yellow, Colorless, Light Yellow [facility] Clarity UA Clear Clear [facility] Specific [place] UA 1.002 1.001 - 1.030 [facility] pH UA 7.0 5.0 - 8.0 [facility] Protein UA Negative <=20 mg/dL [facility] Glucose UA Negative Negative mg/dL [facility] Ketone UA Negative Negative mg/dL [facility] Bilirubin UA Negative Negative mg/dL [facility] Blood UA Negative Negative [facility] Nitrite UA Negative Negative [facility] Leukocyte Esterase Negative Negative [facility] Urobilinogen UA <2.0 <2.0 mg/dL [facility] RBC UA <1 0 - 8 /HPF [facility] Bacteria UA Rare Rare, Occasional, None /HPF [facility] Squamous Epithelial Cells UA <1 0 - 1 /HPF [facility] Urine specimen (specimen) 05/06/2016 6:59 PM CDT 05/06/2016 7:07 PM CDT Du Gomez MD LAB - URINALYSIS ORD ERABLES Performing Organization Address City/[facility]/ZIP Co de Phone Number [facility] [address] [phone] * LAB HISTORICAL RESULTS-ONBASE (04/25/2016) Only the most recent of2 resultswithin the time period is included. 04/25/2016 Historical Provider LAB - CHEMISTRY O RDERABLES Performing Organization Address City/[facility]/ZIP Co de Phone Number [facility] [address] * TISSUE TRANSGLUTAMINASE AB IGA (04/24/2016 1:05 PM CDT) TTG Antibody IgA <2 0 - 3 U/mL [facility] (BEAKER) Comment: Negative 0 - 3 Weak Positive 4 - 10 Positive >10 Tissue Transglutaminase (tTG) has been identified as the endomysial antigen. Studies have demonstr- ated that endomysial IgA antibodies have over 99% specificity for gluten sensitive enteropathy. Blood specimen (specimen) BLOOD SPECIMEN / Unknown 04/24/2016 1:05 PM CDT 04/24/2016 1:09 PM CDT Narrative [facility] ([place]) - 04/26/2016 3:10 PM CDT Performed at: [address] [place] [address] [id number] Final Inspector Truck Trailer: Esteban Limon PhD, Phone: [phone] Latonia Hubbard MD LAB - SEROLOGY ORDER RUDY Performing Organization Address City/[facility]/ZIP Co de Phone Number [facility] ([facility]) * C-REACTIVE PROTEIN (04/24/2016 1:05 PM CDT) Pathologist [facility] C-Reactive Protein <0.5 <=0.5 mg/dL [facility] Blood specimen (specimen) BLOOD SPECIMEN / Unknown 04/24/2016 1:05 PM CDT 04/24/2016 1:09 PM CDT Latonia Hubbard MD LAB - CHEMISTRY ORDE RABDEANGELO Performing Organization Address City/[facility]/ZIP Co de Phone Number [address] [phone] * ERYTHROCYTE SEDIMENTATION RATE (04/24/2016 1:05 PM CDT) Erythrocyte Sedimentation Rate Westergren 5 0 - 20 MM/HR [facility] Blood specimen (specimen) BLOOD SPECIMEN / Unknown 04/24/2016 1:05 PM CDT 04/24/2016 1:08 PM CDT Latonia Hubbard MD LAB - HEMATOLOGY ORD ERABLES Performing Organization Address City/[facility]/ZIP Co de Phone Number [address] [phone] * IGA BLOOD (04/24/2016 1:05 PM CDT) IgA 178 87 - 534 mg/dL [facility] Blood specimen (specimen) BLOOD SPECIMEN / Unknown 04/24/2016 1:05 PM CDT 04/24/2016 1:09 PM CDT Latonia Hubbard MD LAB - CHEMISTRY CHARLI CREWS Performing Organization Address [facility]/ZIP Co de Phone Number [address] [phone] * HEPATITIS C ANTIBODY (04/24/2016 1:05 PM CDT) [facility] Hepatitis C Antibody Non-react sd Non-reac tive [facility] Comment: Hepatitis C Antibody screen indicates [...] - CHEMISTRY CHARLI CREWS Performing Organization Address [facility] Co de Phone Number [address] [phone] * CULTURE STOOL+ E COLI SHIGA-LIKE TOXIN (04/24/2016 12:59 PM CDT) [facility] Culture Feces No Salmonella, Shigella, Yersinia, Campylobacter or Escherichia Coli 0157:H7 isolated. Negative for Shiga Toxin by Immunoassay. [facility] Stool specimen (specimen) STOOL SPECIMEN / Unknown 04/24/2016 12:59 PM CDT 04/24/2016 1:12 PM CDT Narrative [facility] - 04/28/2016 10:15 AM CDT Specimen Type->Stool Latonia Hubbard MD LAB - MICROBIOLOGY O RDERABLES Performing Organization Address [facility]/ZIP Co de Phone Number [address] [phone] * CLOSTRIDIUM DIFFICILE [facility] + TOXIN A+B (04/24/2016 12:59 PM CDT) C difficile Antigen Negative Negative [facility] C difficile Toxin Negative Negative [facility] Stool specimen (specimen) STOOL SPECIMEN / Unknown 04/24/2016 12:59 PM CDT 04/24/2016 1:12 PM CDT Narrative [facility] - 04/25/2016 12:29 PM CDT Specimen Type->Stool Latonia Hubbard MD LAB - MICROBIOLOGY O RDERABLES [place] [id number] [address] [phone] * CALPROTECTIN FECAL (04/24/2016 12:59 PM CDT) Calprotectin Fecal 82 0 - 120 ug/g [facility] Comment: Concentration Interpretation Follow-Up <16 - 50 ug/g Normal None >50 -120 ug/g Borderline Re-evaluate in 4-6 weeks >120 ug/g Abnormal Repeat as clinically indicated Stool specimen (specimen) STOOL SPECIMEN / Unknown 04/24/2016 12:59 PM CDT 04/24/2016 1:12 PM CDT Narrative [facility] - 04/29/2016 3:12 PM CDT Performed at: [address] [place] [id number] Final Inspector Truck Trailer: Nico Corral MD, Phone: [phone] Latonia Hubbard MD LAB - BODY FLUID ORD ERABLES [facility] ([facility]) * (ABNORMAL) PANCREATIC ELASTASE FECES (04/24/2016 12:59 PM CDT) Pancreatic Elastase 1 114(L) >=201 ug/g [facility] ([facility]) Comment: INTERPRETIVE INFORMATION: Pancreatic Elastase 201 ug/g or greater .......... Normal 100-200 ug/g ................. Moderate to mild pancreatic insufficiency. 99 ug/g or less............... Severe exocrine pancreatic insufficiency. Stool specimen (specimen) STOOL SPECIMEN / Unknown 04/24/2016 12:59 PM CDT 04/24/2016 1:12 PM CDT Latonia Hubbard MD LAB - BODY FLUID ORD [facility] ([facility]) * FAT QUALITATIVE FECES RANDOM (04/24/2016 12:59 PM CDT) Fat Fecal - Neutral Normal Normal [facility] ([facility]) Fat Fecal - Split Normal Normal [facility] ([facility]) Comment: INTERPRETIVE INFORMATION: Fecal Fat [...] Hubbard MD LAB - BODY FLUID ORD [facility] ([facility]) Care Teams Frit Burner Relationship Specialty Start Date End Date Stella Sneed MD [address] [place] [phone] PCP - General Family Medicine 04/01/23 Luiza Fernandez MD [address] [place] [phone] Physician Endocrinology 03/12/23
--- OUTSIDE RECORDS SUMMARY | 2024-10-08 20:16 | XMS_ITS | Encounter Summary ---
Author Organization [facility] Health Address [address] [place] [address] Care Team Providers Care Custodial Engineer Name Role Phone Luiza Fernandez MD Unavailable Stella Sneed MD Primary Care Provider [phone] Reason for Visit * Reason Comments Refill Request Encounter Details Date Type Department Care Team (Late st Contact Info) Description 10/07/2024 Refill [facility] - Endocrinology [address] [facility] [address] [place] [address] Luiza Fernandez MD [address] [facility] [address] [place] [address] Refill Request Social History Tobacco [...] Sex Assigned at Female 09/05/2021 1:34 PM RESERVATIONIST Gender Identity Female 09/05/2021 1:34 PM RESERVATIONIST Sexual Orientation Straight 09/05/2021 1: 34 PM RESERVATIONIST documented as of this encounter Functional Status [...] Office Visit [facility] - Pulmonology [address] [place] [phone] Luis Peter MD [facility] PULMONARY DISEASE/[place] [address] 12/21/2024 2:20 PM CDT Office Visit [facility] - Endocrinology [address] [place] [phone] Joceline Reed MD [address] [place] [address] 12/29/2024 8:30 AM CDT Office Visit [facility] - GI [address] [place] [phone] 01/17/2025 1:00 PM CDT Office Visit [facility] - Neurology [address] [place] [address] [place] [phone] Yael Brock MD [address] [facility] 1L [place] [phone] 2025 8:40 AM CDT Office Visit [facility] - Sleep Services [address] [place] [phone] Breanna Layton, APNP-MEDICAL COST CONSULTANT [address] [facility] 2L DIV OF PULMONARY/[place] [address] documented as of this encounter Goals Goal Patient Goal Type Associated Problems Recent Progress Patient-Stated? Author Medication Management General On track( 2:44 PM RESERVATIONIST) Tammy Sanchez, RN Note: Expected end date: ongoing Interventions: Take all medications as prescribed Let your doctor know right away about any changes in your medications Make sure to request a refill of your medication at least one week prior to your last dose Safety General On track( 2:44 PM RESERVATIONIST) Kylah Genao, RN Note: Expected end date: ongoing Interventions: Your nurse will assess your risk for falls/injury each visit Use appropriate and safe transfer methods Keep personal items within easy reach Use some light at night in your room Keep walking paths clutter free and clear documented as of this encounter Visit Diagnoses Not on filedocumented in this encounter Care Teams Custodial Engineer Relationship Specialty Start Date End Date Stella Sneed MD [address] [place] [phone] PCP - General Family Medicine 04/01/23 Luiza Fernandez MD [address] [place] [phone] Physician Endocrinology 03/12/23 documented as of this encounter
--- OUTSIDE RECORDS SUMMARY | 2024-10-08 20:16 | XMS_ITS | Encounter Summary ---
Author Organization [facility] Health Address [address] [place] [address] Care Team Providers Care Rehabilitation Services Coordinator Name Role Phone Luiza Fernandez MD Unavailable Stella Sneed MD Primary Care Provider [phone] Reason for Visit * Reason Onset Date Comments MEDICATION REFILL 06/19/2023 Encounter Details Date Type Department Care Team (Late st Contact Info) Description 06/19/2023 Refill [facility] - Endocrinology [address] [place] [address], [place] [phone] Buck Louise MD [address] [place] [address] [place] [address] MEDICATION REFILL Social History Tobacco Use Types [...] Sex Assigned at Female 09/05/2021 1:34 PM HARBOR PILOT Gender Identity Female 09/05/2021 1:34 PM HARBOR PILOT Sexual Orientation Straight 09/05/2021 1: 34 PM HARBOR PILOT documented as of this encounter Functional Status [...] Visit [facility] - Pulmonology [address] [facility], [place] [phone] Luis Peter MD [address] [facility] PULMONARY DISEASE/[place] [address] 12/21/2024 2:20 PM CDT Office Visit [facility] - Endocrinology [address] [place] [address], [place] [address] Joceline Reed MD [address] [place] [address] 12/29/2024 8:30 AM CDT Office Visit [facility] - GI [address] [place] [address], [place] [address] 01/17/2025 1:00 PM CDT Office Visit [facility] - Neurology [address] [place] [address], [place] [phone] Yael Brock MD [address] [place] [address] 1L [place] [phone] 2025 8:40 AM CDT Office Visit [facility] - Sleep Services [address] [place] [phone] Breanna Layton, TICO-RADIOLOGY NURSE [address] [place] [address] 2L DIV OF PULMONARY/[place] [address] documented as of this encounter Goals Goal Patient Goal Type Associated Problems Recent Progress Patient-Stated? Author Medication Management General On track( 2:44 PM HARBOR PILOT) Tammy Sanchez, RN Note: Expected end date: ongoing Interventions: Take all medications as prescribed Let your doctor know right away about any changes in your medications Make sure to request a refill of your medication at least one week prior to your last dose Safety General On track( 2:44 PM HARBOR PILOT) Kylah Genao RN Note: Expected end date: [...] neuropathy documented in this encounter Care Teams Rehabilitation Services Coordinator Relationship Specialty Start Date End Date Stella Sneed MD [address] [place] [phone] PCP - General Family Medicine 04/01/23 Luiza Fernandez MD [address] [place] [address] Physician Endocrinology 03/12/23 documented as of this encounter
--- OUTSIDE RECORDS SUMMARY | 2024-10-08 20:16 | XMS_ITS | Referral Summary ---
Author Organization [facility] Address [address] [facility] [place] [address] Care Team Providers Care Flamer After Lasting Name Role Phone Luiza Fernandez MD Unavailable Stella Sneed MD Primary Care Provider [phone] Source Comments [facility],non-owned Affiliates and Associated Physician Practices is amultiple site organization consisting of ambulatory clinics and hospital sitesin [place], [place], [place] and [place]. This disclosure is being madepursuant to the Care Everywhere program and may not contain all information available regarding this patient. Last updated 18.[facility] Encounters Date Type Department Care Team Description 10/07/2024 Refill [facility] Medical Group - Endocrinology [address] [place] [address] Luiza Fernandez MD Refill Request 10/06/2024 8:30 AM MARKETING [facility] OP Hospital Encounter [facility] CAT SCAN [address] [place] [phone] Michael Barlow MD 09/27/2024 Travel 09/27/2024 8:00 AM MARKETING [facility] OP Office Visit [facility] - Sleep Services [address] [place] [address] Breanna Layton APNP-FIRE AND SAFETY HELPER [place]HELA (obstructive sleep apnea) (Primary Dx); Sleep related hypoxia; Excessive daytime sleepiness; Chronic fatigue; Restless legs syndrome (RLS); Nocturia more than twice per night; Abnormal REM sleep; Grade II diastolic dysfunction; RBC microcytosis; Vitamin B6 deficiency; Copper deficiency; Chronic insomnia; Air leak; CPAP use counseling; Obesity (BMI 30-39.9) 09/21/2024 Refill [facility] - Endocrinology [address] [place] [phone] Maggie Lester MD Refill Request 09/16/2024 Orders Only [facility] - Neurology [address] [place] [phone] Yael Brock MD 09/16/2024 Refill [facility] - Endocrinology [address] [place] [phone] Buck Louise MD Refill Request 09/15/2024 Telephone [facility] - Pulmonology [address] [place] [phone] Luis Peter MD Results 09/13/2024 10:20 AM MARKETING [facility] OP - 09/13/2024 11:59 PM MARKETING CO OP Hospital Encounter [facility] LAB OP DRAW STATION [address] [place] [address] Aj Hagan MD Discharge Disposition: Home or Self Care 09/13/2024 Travel 09/13/2024 8:28 AM MARKETING [facility] OP - 09/13/2024 10:19 AM [facility] Hospital Encounter [facility] EEG/EMG [address] [place] [address] Aj Hagan MD Discharge Disposition: Home or Self Care 09/01/2024 Orders Only [facility] - Neurology [address] [place] [phone] Yael Brock MD Low serum copper level 08/30/2024 11:45 AM MARKETING CO OP - 08/30/2024 11:59 PM MARKETING CO OP Hospital Encounter [facility] LAB OP DRAW STATION [address] [place] [address] Discharge Disposition: Home or Self Care 08/30/2024 Travel 08/30/2024 10:30 AM MARKETING CO OP Office Visit [facility] - Neurology [facility] [facility], [place] [address] Yael Brock MD Diabetic peripheral autonomic neuropathy (HCC) (Primary Dx) 08/25/2024 1:06 PM MARKETING CO OP Anesthesia Event [facility] ENDOSCOPY [address] [place] [address] Subhash Charles MD Schlarman, Nicholas C, MD 08/25/2024 12:00 PM MARKETING [facility] OP - 08/25/2024 12:45 PM MARKETING [facility] OP Surgery [facility] ENDOSCOPY [address] [place] [address] Ricardo Jiménez MD COLONOSCOPY SCREEN--miralax prep 08/25/2024 10:53 AM MARKETING CO OP - 08/25/2024 2:19 PM MARKETING CO OP Hospital Encounter [facility] DARRELL OP [address] [place] [address] Ricardo Jiménez MD Surgery General Discharge Disposition: Home or Self Care 08/23/2024 Refill [facility] - Endocrinology [address] [place] [address], [place] [address] Joceline Reed MD Refill Request 08/21/2024 Refill [facility] - Endocrinology [address] [place] [phone] Buck Louise MD Refill Request 08/11/2024 Refill [facility] - Endocrinology [address] [place] [address], [place] [address] Maggie Lester MD Refill Request 07/26/2024 Refill [facility] - Cardiology [address] [facility], [facility] [address] [place] [address] Diana Gonzalez, PA Refill Request 07/26/2024 Refill [facility] - Endocrinology [address] [place] [phone] Buck Louise MD Refill Request 07/18/2024 Travel 07/12/2024 Refill [facility] Endocrinology [address] [place] [phone] Joceline Reed MD Refill Request 07/12/2024 Refill [facility] - Endocrinology [address] [place] [phone] Maggie Lester MD Refill Request 07/10/2024 Telephone [facility] - Pulmonology [address] [place] [phone] Luis Peter MD Results from Last 3 [...] tablet 2 08/22/20 22 Active blood glucose ([employer]utation.[email or web address] ULTRA TEST STRIPS) test stripIndications:T ype 2 diabetes mellitus with other specified complication, with long-term current use of insulin ([facility]) Use 1 (one) strip 4 times daily [...] hyperglycemia, with long-term current use of insulin ([facility]) Take 1 (one) tablet by mouth once [...] SPASM 09/24/19 24 Active TRUEplus 5-Bevel [place] 32G X 4 MM MISCIndications:Di abetic polyneuropathy [...] Active vitamin D, ergocalciferol, (Drisdol) 1.25 MG (37230 UT) capsule TAKE ONE CAPSULE BY MOUTH [...] hyperglycemia, with long-term current use of insulin ([facility]) TAKE 1 TABLET BY MOUTH TWICE A [...] complication, with long-term current use of insulin ([facility]) Use 1 Each once daily As backup to insulin pump 100 Each 3 02/07/20 21 025 Discontinued([employer] Clean-Up) Blood Glucose Monitoring Suppl ([employer] TOUCH ULTRA 2) w/Device KITIndications:Typ e 2 diabetes mellitus with other specified complication, with long-term current use of insulin (HCC) Use 1 Each as directed 1 kit 03/05/20 23 025 Discontinued([employer] Clean-Up) empagliflozin (Jardiance) 25 MG tabletIndications: Diabetic [...] Sex Assigned at Female 09/05/2021 1:34 PM MARKETING CO OP Gender Identity Female 09/05/2021 1:34 PM MARKETING CO OP Sexual Orientation Straight 09/05/2021 1: 34 PM MARKETING CO OP Last Filed Vital Signs Vital Sign Reading Time Taken Comments Blood Pressure 113/81 09/27/2024 9:11 AM MARKETING CO OP Pulse 69 09/27/2024 9:11 AM MARKETING CO OP Temperature 36.7 C (98 F) 08/25/2024 1:42 PM MARKETING CO OP Respiratory Rate 16 08/25/2024 2:05 PM MARKETING CO OP Oxygen Saturation 98% 08/25/2024 2:05 PM MARKETING CO OP Inhaled Oxygen Concentration - - Weight 84.8 kg (187 lb) 09/27/2024 9:11 AM MARKETING CO OP Height 167.6 cm (5' 6 ) 09/27/2024 9:11 AM MARKETING CO OP Body Mass Index 30.18 09/27/2024 9:11 AM MARKETING CO OP Functional Status Functional Status Response Date of [...] Office Visit [facility] - Pulmonology [address] [place] [phone] Luis Peter MD [address] [facility] PULMONARY DIS[facility]ASE[facility] [phone] 12/21/2024 2:20 PM CDT Office Visit [facility] - Endocrinology [address] [place] [address], [place] [phone] Joceline Reed MD [address] [place] [address] 12/29/2024 8:30 AM CDT Office Visit [facility] - GI [address] [place] [address], [place] [phone] 01/17/2025 1:00 PM CDT Office Visit [facility] - Neurology [address] [place] [address], [place] [phone] Yael Brock MD [address] [place] [address] [address] [place] [phone] 2025 8:40 AM CDT Office Visit [facility] - Sleep Services [facility] [place] [phone] Breanna Layton APNP-FIRE AND SAFETY HELPER [address] [place] [address] 2L DIV OF PULMONARY/[place] [address] Goals Goal Patient Goal Type Associated Problems Recent Progress Patient-Stated? Author Medication Management General On track(11/04/2 024 2:44 PM MARKETING CO OP) Tammy Sanchez, RN Note: Expected end date: ongoing Interventions: Take all medications as prescribed Let your doctor know right away about any changes in your medications Make sure to request a refill of your medication at least one week prior to your last dose Safety General On track( 2:44 PM MARKETING CO OP) Kylah Genao RN Note: Expected end date: ongoing Interventions: Your nurse will assess your risk for falls/injury each visit Use appropriate and safe transfer methods Keep personal items within easy reach Use some light at night in your room Keep walking paths clutter free and clear Procedures Procedure Name Priority Date/Time Associated Diagnosis Comments PROTEIN ELECTROPHORESIS URINE RANDOM PANEL 09/16/2024 12:05 PM MARKETING CO OP PROTEIN ELECTROPHORESIS URINE RANDOM Routine 09/13/2024 10:36 AM MARKETING CO OP Diabetic peripheral autonomic neuropathy (HCC) EEG Routine 09/13/2024 8:49 AM MARKETING CO OP Diabetic peripheral autonomic neuropathy (HCC) VITAMIN B12 Routine 08/30/2024 12:26 PM MARKETING CO OP Diabetic peripheral autonomic neuropathy (HCC) CBC W AUTO DIFFERENTIAL Routine 08/30/2024 12:26 PM MARKETING CO OP Moderate persistent asthma without complication (HCC) IMMUNOSCORE IGE INTERP Routine 08/30/2024 12:17 PM MARKETING CO OP Moderate persistent asthma without complication (HCC) COPPER BLOOD Routine 08/30/2024 12:17 PM MARKETING CO OP Diabetic peripheral autonomic neuropathy (HCC) VITAMIN E Routine 08/30/2024 12:17 PM MARKETING CO OP Diabetic peripheral autonomic neuropathy (HCC) VITAMIN B6 Routine 08/30/2024 12:17 PM MARKETING CO OP Diabetic peripheral autonomic neuropathy (HCC) IGE BLOOD Routine 08/30/2024 12:17 PM MARKETING CO OP Moderate persistent asthma without complication (HCC) ALLERGEN RESPIRATORY PNL REGION 8 ([place]) Routine 08/30/2024 12:17 PM MARKETING CO OP Moderate persistent asthma without complication (HCC) PROTEIN ELECTROPHORESIS BLOOD Routine 08/30/2024 12:17 PM MARKETING CO OP Diabetic peripheral autonomic neuropathy (HCC) PATHOLOGY TISSUE Routine 08/25/2024 1:24 PM MARKETING CO OP Screen for colon cancer ENDOSCOPY, COLON, SCREENING Routine 08/25/2024 1:09 PM MARKETING CO OP NM COLOREC CANC SCRN,SCOPY NOT HI RISK 08/25/2024 1:01 PM MARKETING CO OP Screen for colon cancer Special Needs Message Received: Today Mily Mcintosh MD [facility] Schedulers - Endoscopy Pool Hi, We would [...] POINT OF CARE Routine 08/25/2024 12:00 PM MARKETING CO OP COMPREHENSIVE METABOLIC PANEL Routine 10/13/2023 12:55 PM MARKETING CO OP Diabetic polyneuropathy associated with type 2 diabetes mellitus (HCC) HEMOGLOBIN A1C - POINT OF CARE (AMB) [facility] Routine 10/13/2023 11:33 AM MARKETING CO OP Diabetic polyneuropathy associated with type 2 diabetes mellitus (HCC) MICROALB/CREAT RATIO URINE RANDOM PANEL Routine 06/09/2023 12:44 PM CDT Type 2 diabetes mellitus with hyperglycemia, with long-term current use of insulin (HCC) CT LUNG SCREEN LOW DOSE Routine 09/24/2021 10:13 AM MARKETING CO OP Ex-smoker HEPATITIS C ANTIBODY Routine 04/24/2016 1:05 PM CDT from Last 3 Months or Most Recently Relevant to Health Maintenance Results * (ABNORMAL) PROTEIN ELECTROPHORESIS URINE RANDOM PANEL (09/16/2024 12:05 PM MARKETING CO OP) Creatinine Urine 33 20 - 275 mg/dL [...] % [facility] Alpha-1 Globulin 0 % [facility] Upzgx-5-Awdyrhvu 0 % [facility] Beta-Globulin 0 % [facility] [...] ordered. REPORT COMMENT: FASTING:YES Test Performed at: [facility] [address] [place] [address] GRETEL ZACARIAS MD 09/16/2024 12:0 5 PM MARKETING CO OP 09/16/2024 12:06 PM MARKETING CO OP Yael Brock MD LAB - URINE CHEMISTR Y ORDERABLES [facility] [address] [place] [address] * PROTEIN ELECTROPHORESIS URINE RANDOM (09/13/2024 10:36 AM MARKETING CO OP) Pathologist [facility] Interpretation Urine PE See Comment Normal Pattern 09/15/2024 2:59 PM MARKETING CO OP [facility] Comment: Urine protein electrophoresis shows a band corresponding to albumin with small amounts of other nonspecific proteinuria. No monoclonal immunoglobulins detected. Felipa Myles PhD, [facility] Clinical Job Service Specialist shank archer Protein Urine <7 Not Established mg/dL 09/15/2024 2:59 PM MARKETING CO OP [facility] Urine URINE SPECIMEN OBTAINED BY CLEAN CATCH PROCEDURE / Unknown Collection / Unknown 09/13/2024 10:36 AM MARKETING CO OP 09/13/2024 11:22 AM MARKETING CO OP Yael Brock MD LAB - URINE CHEMISTR Y ORDERABLES [address] [address], [facility] [phone] * EEG (09/13/2024 8:49 AM MARKETING CO OP) Narrative Aj Hagan MD - 09/13/2024 8:49 AM MARKETING CO OP Aj Hagan MD 09/13/2024 11:34 AM EEG [...] (one) tablet by mouth TRUEplus 5-Bevel [place] 32G X 4 MM [employer] [facility] [employer] USE TO INJECT SUBCUTANEOUSLY DAILY Trulicity 1.5 MG/0.5ML injection Inject 1.5 (one and one-half) mg subcutaneously every 7 days vitamin D, ergocalciferol, (Drisdol) 1.25 MG (48096 UT) capsule TAKE ONE CAPSULE BY MOUTH [...] 4.0 - 10.7 x10E9/L 08/30/2024 12:45 PM [facility] RBC Count 5.09 3.90 - 5.20 x10E12/L 08/30/2024 12:45 PM [facility] Hemoglobin 12.6 11.9 - 15.8 g/dL 08/30/2024 12:45 PM [facility] Hematocrit 39.3 34.8 - 46.1 % 08/30/2024 12:45 PM [facility] MCV 77.2(L) 80.0 - 98.0 fL 08/30/2024 12:45 PM [facility] MCH 24.8(L) 26.7 - 33.6 pg 08/30/2024 12:45 PM [facility] MCHC 32.1 31.7 - 36.3 g/dL 08/30/2024 12:45 PM [facility] RDW-CV 14.5 11.3 - 14.8 % 08/30/2024 12:45 PM [facility] Platelet Count 224 150 - 420 x10E9/L 08/30/2024 12:45 PM [facility] MPV 11.7(H) 7.8 - 11.4 fL 08/30/2024 12:45 PM [facility] Neutrophil % 69.7 41.0 - 74.0 % 08/30/2024 12:45 PM [facility] Lymphocyte % 17.1 17.0 - 47.0 % 08/30/2024 12:45 PM [facility] Monocyte % 7.3 3.0 - 11.0 % 08/30/2024 12:45 PM [facility] Eosinophil % 4.8 0.0 - 7.0 % 08/30/2024 12:45 PM [facility] Basophil % 0.8 0.0 - 1.6 % 08/30/2024 12:45 PM [facility] Immature Granulocytes % 0.3 0.0 - 1.0 % 08/30/2024 12:45 PM [facility] Neutrophil Absolute 6.60 1.60 - 7.50 x10E9/L 08/30/2024 12:45 PM [facility] Lymphocyte Absolute 1.62 1.00 - 4.40 x10E9/L 08/30/2024 12:45 PM [facility] Monocyte Absolute 0.69 0.15 - 1.00 x10E9/L 08/30/2024 12:45 PM [facility] Eosinophil Absolute 0.45 0.00 - 0.60 x10E9/L 08/30/2024 12:45 PM [facility] Basophil Absolute 0.08 0.00 - 0.13 x10E9/L 08/30/2024 12:45 PM [facility] Blood BLOOD SPECIMEN / Unknown Lab Venipuncture / Unknown 08/30/2024 12:26 PM MARKETING CO OP 08/30/2024 12:27 PM MARKETING CO OP Michael Barlow MD LAB - HEMATOLOGY ORD ERABLES [address] [address], [facility] [phone] * VITAMIN B12 (08/30/2024 12:26 PM MARKETING CO OP) Pathologist [facility] Vitamin B12 491 213 - 816 pg/mL 08/30/2024 1:30 PM MARKETING CO OP [facility] Blood BLOOD SPECIMEN / Unknown Lab Venipuncture / Unknown 08/30/2024 12:26 PM MARKETING CO OP 08/30/2024 12:27 PM MARKETING CO OP aYel Brock MD LAB - CHEMISTRY CHARLI CREWS [address] [address], [facility] [phone] * IMMUNOSCORE IGE INTERP (08/30/2024 12:17 PM MARKETING CO OP) Pathologist [facility] Immunocap Score See Note 3:58 PM MARKETING CO OP [employer] [facility] ([facility]) Comment: REFERENCE INTERVAL: Allergen, Interpretation Less [...] clinical allergy or even anaphylaxis. Performed By: [facility] [address] [place] [address] Contact Acid Plant Operator: Benjamin Barnett MD, PhD CLIA Number: [id number] Blood BLOOD SPECIMEN / Unknown Lab Venipuncture / Unknown 08/30/2024 12:17 PM MARKETING CO OP 08/30/2024 12:17 PM MARKETING CO OP Michael Barlow MD LAB - SEROLOGY ORDER RUDY [employer] [facility]) [address] [place] [address] * VITAMIN E (08/30/2024 12:17 PM MARKETING CO OP) Vitamin E Alpha Tocopherol 7.9 5.5 - 18.0 mg/L 09/02/2024 3:57 PM MARKETING CO OP [facility] ([facility]) Comment: This test was developed and its performance characteristics determined by [facility]. It has not been cleared or approved by the US Food and Drug Administration. This test was performed in a CLIA certified laboratory and is intended for clinical purposes. Vitamin E Gamma Tocopherol 1.4 0.0 - 6.0 mg/L 09/02/2024 3:57 PM MARKETING CO OP [facility] ([facility]) Comment: Performed By: [facility] [address] [place] [address] Contact Acid Plant Operator: Benjamin Barnett MD, PhD CLIA Number: [id number] Blood BLOOD SPECIMEN / Unknown Lab Venipuncture / Unknown 08/30/2024 12:17 PM MARKETING CO OP 08/30/2024 12:17 PM MARKETING CO OP Yael Brock MD LAB - CHEMISTRY ORDE ELEONORA [facility] Organization Address City/State/ZIP Co de Phone Number [facility]) [address] [place] [address] * (ABNORMAL) VITAMIN B6 (08/30/2024 12:17 PM MARKETING CO OP) Pathologist [facility] Vitamin B6 18.9(L) 20.0 - 125.0 nmol/L 09/02/2024 6:31 AM MARKETING CO OP [facility] ([facility]) Comment: INTERPRETIVE INFORMATION: Vitamin B6 (Pyridoxal 5-Phosphate) Pyridoxal 5'-phosphate measured in a specimen collected following an 8-hour or overnight fast accurately indicates vitamin B6 nutritional status. Non-fasting specimen concentration reflects recent vitamin intake. This test was developed and its performance characteristics determined by [facility]. It has not been cleared or approved by the US Food and Drug Administration. This test was performed in a CLIA certified laboratory and is intended for clinical purposes. Performed By: [facility] [address] [place] [address] Contact Acid Plant Operator: Benjamin Barnett MD, PhD CLIA Number: [id number] Blood BLOOD SPECIMEN / Unknown Lab Venipuncture / Unknown 08/30/2024 12:17 PM MARKETING CO OP 08/30/2024 12:17 PM MARKETING CO OP Yael Brock MD LAB - CHEMISTRY CHARLI CREWS [facility]) [address] [place] [address], [facility] * (ABNORMAL) ALLERGEN RESPIRATORY PNL REGION 8 ([place]) (08/30/2024 12:17 PM MARKETING CO OP) IgE Total 102 <=214 kU/L 09/01/2024 3:56 PM MARKETING CO OP [facility] ([facility]) Comment: REFERENCE INTERVAL: Immunoglobulin E, Serum Access complete set of age- and/or gender-specific reference intervals for this test in the [facility] Laboratory Test Directory ([employer]). Allergen Bowen Elder <0.10 <=0.34 kU/L 09/01/2024 3:56 PM MARKETING CO OP [facility] ([facility]) Allergen Alternaria alternata <0.10 <=0.34 kU/L 09/01/2024 3:56 PM MARKETING CO OP [facility] ([facility]) Allergen [place] Maple 0.11 <=0.34 kU/L 09/01/2024 3:56 PM MARKETING CO OP [facility] ([facility]) Allergen Cat Dander <0.10 <=0.34 kU/L 09/01/2024 3:56 PM MARKETING CO OP [facility] ([facility]) Allergen Mountain Wilsey <0.10 <=0.34 kU/L 09/01/2024 3:56 PM MARKETING CO OP [facility] ([facility]) Allergen [place] Tree 0.25 <=0.34 kU/L 09/01/2024 3:56 PM MARKETING CO OP [facility] ([facility]) Allergen Rough Pigweed 0.22 <=0.34 kU/L 09/01/2024 3:56 PM MARKETING CO OP [facility] ([facility]) Allergen Nicaraguan Thistle 0.40(H) <=0.34 kU/L 09/01/2024 3:56 PM MARKETING CO OP [facility] ([facility]) Allergen Ricardo Grass 0.81(H) <=0.34 kU/L 09/01/2024 3:56 PM MARKETING CO OP [facility]) Allergen Hormodendrum <0.10 <=0.34 kU/L 09/01/2024 3:56 PM MARKETING CO OP [facility] ([facility]) Allergen Elm 0.24 <=0.34 kU/L 09/01/2024 3:56 PM MARKETING CO OP [facility] ([facility]) Allergen [place] <0.10 <=0.34 kU/L 09/01/2024 3:56 PM MARKETING CO OP [facility] ([facility]) Allergen A fumigatus IgE <0.10 <=0.34 kU/L 09/01/2024 3:56 PM MARKETING CO OP [facility] ([facility]) Allergen Dermatophagoides pteronyssinus <0.10 <=0.34 kU/L 09/01/2024 3:56 PM MARKETING CO OP [facility] ([facility]) Allergen Dermatophagoides farinae <0.10 <=0.34 kU/L 09/01/2024 3:56 PM MARKETING CO OP [facility] ([facility]) Allergen [place] Grass <0.10 <=0.34 kU/L 09/01/2024 3:56 PM MARKETING CO OP [facility] ([facility]) Allergen White Darrion 0.35(H) <=0.34 kU/L 09/01/2024 3:56 PM MARKETING CO OP [facility] ([facility]) Allergen P. Notatum <0.10 <=0.34 kU/L 09/01/2024 3:56 PM MARKETING CO OP [facility] ([facility]) Allergen Common Ragweed <0.10 <=0.34 kU/L 09/01/2024 3:56 PM MARKETING CO OP [facility] ([facility]) Allergen Cockroach Bulgarian <0.10 <=0.34 kU/L 09/01/2024 3:56 PM MARKETING CO OP [facility] ([facility]) Allergen [place] Tree <0.10 <=0.34 kU/L 09/01/2024 3:56 PM MARKETING CO OP [facility] ([facility]) Allergen Berger Tree <0.10 <=0.34 kU/L 09/01/2024 3:56 PM MARKETING CO OP [facility] ([facility]) Allergen Pecan Tree <0.10 <=0.34 kU/L 09/01/2024 3:56 PM MARKETING CO OP [facility] ([facility]) Allergen Mouse Epithelium IgE <0.10 <=0.34 kU/L 09/01/2024 3:56 PM MARKETING CO OP [facility] ([facility]) Allergen Mucor racemosus <0.10 <=0.34 kU/L 09/01/2024 3:56 PM MARKETING CO OP [facility] ([facility]) Allergen White [place] Tree IgE <0.10 <=0.34 kU/L 09/01/2024 3:56 PM MARKETING CO OP [facility] ([facility]) Allergen Dog Dander <0.10 <=0.34 kU/L 09/01/2024 3:56 PM MARKETING CO OP [facility] ([facility]) Comment: Performed By: [facility] [address] [place] [address] Contact Acid Plant Operator: Benjamin Barnett MD, PhD CLIA Number: [id number] Blood BLOOD SPECIMEN / Unknown Lab Venipuncture / Unknown 08/30/2024 12:17 PM MARKETING CO OP 08/30/2024 12:17 PM MARKETING CO OP Michael Barlow MD LAB - CHEMISTRY CHARLI CREWS [facility] Organization Address City/State/ZIP Co de Phone Number [facility]) [address] [place] [address] * (ABNORMAL) COPPER BLOOD (08/30/2024 12:17 PM MARKETING CO OP) Copper 72.8(L) 80.0 - 155.0 ug/dL 09/01/2024 7:31 AM MARKETING CO OP [facility] ([facility]) Comment: INTERPRETIVE INFORMATION: Copper, Serum or [...] developed and its performance characteristics determined by [facility]. It has not been cleared or approved by the US Food and Drug Administration. This test was performed in a CLIA certified laboratory and is intended for clinical purposes. Performed By: [facility] [address] [place] [address] Contact Acid Plant Operator: Benjamin Barnett MD, PhD CLIA Number: [id number] Blood BLOOD SPECIMEN / Unknown Lab Venipuncture / Unknown 08/30/2024 12:17 PM MARKETING CO OP 08/30/2024 12:17 PM MARKETING CO OP Yael Brock MD LAB - CHEMISTRY CHARLI CREWS [facility] ([facility]) [address] [place] [address], [facility] * PROTEIN ELECTROPHORESIS BLOOD (08/30/2024 12:17 PM MARKETING CO OP) Interpretation Serum PE Normal Pattern Normal Pattern 09/01/2024 4:15 PM [facility] [place] [facility] Comment: Serum capillary electrophoresis shows characteristic bands corresponding to albumin, alpha and beta globulins and polyclonal immunoglobulins. No monoclonal immunoglobulin detected. Non-secretory myeloma (NSM) and light chain only myeloma cannot be excluded based on this result. Recommend serum free light chain measurements for complete evaluation of plasma cell disorders. Felipa Myles PhD, [facility] Clinical Job Service Specialist shank archer *The electrophoresis pattern and the interpretation have been reviewed and verified by the teaching physician. Protein Total 6.5 6.0 - 8.3 g/dL 09/01/2024 4:15 PM [facility] Albumin 3.9 3.3 - 5.6 g/dL 09/01/2024 4:15 PM [facility] Alpha-1 Globulins 0.2 0.2 - 0.4 g/dL 09/01/2024 4:15 PM [facility] Alpha-2 Globulins 0.7 0.5 - 1.0 g/dL 09/01/2024 4:15 PM [facility] Beta Globulins 0.7 0.6 - 1.1 g/dL 09/01/2024 4:15 PM [facility] Gamma Globulins 0.9 0.6 - 1.6 g/dL 09/01/2024 4:15 PM [facility] Blood BLOOD SPECIMEN / Unknown Lab Venipuncture / Unknown 08/30/2024 12:17 PM [facility] 08/30/2024 12:17 PM [facility] Yael Brock MD LAB - CHEMISTRY CHARLI CREWS Performing Organization Address City/[facility]/ZIP Co de Phone Number [facility] [place] [id number] [place] [address], [facility] [phone] * IGE BLOOD (08/30/2024 12:17 PM [facility]) Pathologist [facility] IgE Total 113 <=214 kU/L 09/01/2024 5:23 AM [facility] ([facility]) Comment: REFERENCE INTERVAL: Immunoglobulin E, Serum Access complete set of age- and/or gender-specific reference intervals for this test in the [facility] Test Directory ([place]). Performed By: [place] [address] [place] [id number] Contact Acid Plant Operator: Benjamin Barnett MD, PhD CLIA Number: [id number] Blood BLOOD SPECIMEN / Unknown Lab Venipuncture / Unknown 08/30/2024 12:17 PM [facility] 08/30/2024 12:17 PM [facility] Michael Barlow MD LAB - CHEMISTRY CHARLI CREWS Performing Organization Address [facility] Co de Phone Number [facility] ([facility]) [address] [place], [place] [address] * PATHOLOGY TISSUE (08/25/2024 1:24 PM [facility]) Pathologist [facility] Case Report Surgical Pathology Report Case: [id number] Authorizing Provider: Ricardo Jiménez MD Collected: 08/25/2024 01:24 PM Ordering Location: [facility] ENDOSCOPY Received: 08/25/2024 03:33 PM Pathologist: Adrienne Haynes MD Specimen: Polyp Ascending, ascending colon polyp x1 08/26/2024 9:36 AM [facility] Final Diagnosis Large intestine, ascending colon polyp x 1, biopsy (A): - Tubular adenoma 08/26/2024 9:36 AM [facility] Microscopic Description and Comment Microscopic examination substantiates the final diagnosis. 08/26/2024 9:36 AM [facility] Clinical History The patient is a 59-year-old woman who presents for high risk colon cancer surveillance (personal history of colonic polyps). Operative procedure/findings: Colonoscopy - 2 mm ascending colon polyp, resected and retrieved. 08/26/2024 9:36 AM [facility] LAB Gross Description The requisition and specimen(s) are identified with the patient's name, Sylvia Griffin. Received in formalin, specimen A , is a single parker-pink tissue fragment 0.2 x 0.2 x 0.1 cm submitted in toto in cassette A1. IKD 08/26/2024 9:36 AM [facility] Pathologist Location at [facility] 08/26/2024 9:36 AM [facility] Disclaimer The performance characteristics of all immunohistochemical and indirect immunofluorescence stains (if any) cited in this report were determined by the Histopathology Laboratory of [facility]. Some of these tests were developed by [...] the attending (teaching) pathologist. 08/26/2024 9:36 AM [facility] LAB Embedded Images 08/26/2024 9:36 AM [facility] Biopsy, NOS POLYP / Unknown 08/25/2024 1 :24 PM [facility] 08/25/2024 3:33 PM [facility] Comment:Pre-op diagnosis: Screen for colon cancer [Z12.11] Ricardo Jiménez MD LAB - PATHOLOGY/CYTO LOGY ORDERABLES [facility] [address] [phone] * ENDOSCOPY, COLON, SCREENING (08/25/2024 1:09 PM [facility]) Report Endoscopy POC Endoscopy Department Report _ [...] entire procedure. Procedure Code(s): --- Professional --- 97558, Colonoscopy, flexible; with biopsy, single or multiple Diagnosis Code(s): --- Professional --- Z86.010, Personal history of colonic polyps K64.9, Unspecified hemorrhoids D12.2, Benign neoplasm of ascending colon K57.30, Diverticulosis of large intestine without perforation or abscess without bleeding CPT copyright 2021 [employer]. All rights reserved. The codes documented in this report are preliminary and upon clinical coder review may be revised to meet current compliance requirements. Ricardo Jiménez, 08/25/2024 1:40:05 PM Note Initiated On: 08/25/2024 1:09 PM Number of Addenda: [address] [address] [facility] 08/25/2024 1:09 PM [facility] Ricardo Jiménez MD GI PROCEDURE ORDERAB LES [facility] * (ABNORMAL) GLUCOSE - POINT OF CARE (08/25/2024 12:00 PM [facility]) Glucose WB/POC 189(H) 70 - 99 mg/dL 08/25/2024 1:05 PM [facility] Specimen Type Venous 08/25/2024 1:05 PM [facility] Blood BLOOD SPECIMEN / Unknown 08/25/2024 12:00 PM [facility] 08/25/2024 1:05 PM [facility] Ricardo Jiménez MD LAB - POINT OF CARE ORDERABLES [facility] [address] [place] [address], [facility] [phone] * (ABNORMAL) COMPREHENSIVE METABOLIC PANEL (10/13/2023 12:55 PM [facility]) BUN 28(H) 7 - 26 mg/dL 10/13/2023 1:57 PM [facility] Creatinine 0.93 0.56 - 0.96 mg/dL 10/13/2023 1:57 PM [facility] Sodium 133(L) 136 - 145 mmol/L 10/13/2023 1:57 PM [facility] Potassium 4.9(H) 3.5 - 4.5 mmol/L 10/13/2023 1:57 PM [facility] Chloride 99 98 - 107 mmol/L 10/13/2023 1:57 PM [facility] CO2 25 22 - 29 mmol/L 10/13/2023 1:57 PM [facility] Glucose 269(H) 70 - 115 mg/dL 10/13/2023 1:57 PM [facility] Calcium 9.3 8.4 - 10.2 mg/dL 10/13/2023 1:57 PM [facility] Protein Total 6.9 6.0 - 8.3 g/dL 10/13/2023 1:57 PM [facility] Albumin 4.0 3.4 - 5.0 g/dL 10/13/2023 1:57 PM [facility] Bilirubin Total 0.6 0.2 - 1.2 mg/dL 10/13/2023 1:57 PM [facility] Alkaline Phosphatase 81 40 - 150 U/L 10/13/2023 1:57 PM [facility] ALT 20 5 - 55 U/L 10/13/2023 1:57 PM [facility] AST 15 5 - 34 U/L 10/13/2023 1:57 PM [facility] Anion Gap 9 6 - 16 10/13/2023 1:57 PM [facility] BUN/Creatinine Ratio 30(H) 7 - 23 10/13/2023 1:57 PM [facility] Osmolality Calculated 291 275 - 295 mOsm/kg 10/13/2023 1:57 PM [facility] Albumin/Globulin Ratio 1.4 1.1 - 2.3 10/13/2023 1:57 PM [facility] eGFR by CKD-EPI 71(L) >=90 mL/min/1.7 3 m2 10/13/2023 1:57 PM [facility] Blood BLOOD SPECIMEN / Unknown Lab Venipuncture / Unknown 10/13/2023 12:55 PM [facility] 10/13/2023 1:23 PM [facility] Luiza Fernandez MD LAB - CHEMISTRY ORDE RABDEANGELO [facility] [address] [place] [address], [facility] [phone] * HEMOGLOBIN A1C - POINT OF CARE (AMB) U (10/13/2023 11:33 AM [facility]) Hemoglobin A1c POCT 10.1 % [address] BLOOD SPECIMEN / Unknown 10/13/2023 11:33 AM [facility] Luiza Fernandez MD LAB - POINT OF CARE ORDERABLES Performing Organization Address [facility]/ZIP Co de Phone Number [place] [phone] [facility], [place] [address], [facility] [phone] * MICROALB/CREAT RATIO URINE RANDOM PANEL (06/09/2023 12:44 PM CDT) Albumin Random Urine 35.5 Not Established ug/mL 06/09/2023 2:28 PM CDT [facility] Creatinine Urine >400.00 Not Established mg/dL 06/09/2023 2:28 PM CDT [facility] Urine Albumin/Creati nine Ratio <9 <30 mg/g 06/09/2023 2:28 PM CDT [facility] Urine URINE SPECIMEN OBTAINED BY CLEAN CATCH PROCEDURE / Unknown Collection / Unknown 06/09/2023 12:44 PM CDT 06/09/2023 1:42 PM CDT Luiza Fernandez MD LAB - URINE CHEMISTR Y ORDERABLES [address] [address], [facility] [phone] * CT LUNG SCREEN LOW DOSE (09/24/2021 10:13 AM [facility]) Anatomical Region Laterality Modality Chest Computed Tomogra phy 09/24/2021 10:5 2 AM [facility] Impressions 09/24/2021 11:08 AM [facility] Impression: 1.5 mm pulmonary nodule in the [...] 11:08 AM . Narrative 09/24/2021 11:08 AM [facility] Procedure Information DATE: 09/24/2021 10:14 AM EXAMINATION: [...] C ANTIBODY (04/24/2016 1:05 PM CDT) Pathologist [facility] Hepatitis C Antibody Non-react [facility] Comment: Hepatitis C Antibody screen indicates no [...] Organization Address City/State/ZIP Co de Phone Number [facility] [address] [place], [place] [phone] [place] [address] from Last 3 Months or Most Recently Relevant to Health Maintenance Care Teams Flamer After Lasting Relationship Specialty Start Date End Date Stella Sneed MD [address] [place] [phone] PCP - General Family Medicine 04/01/23 Luiza Fernandez MD [address] [place] [address] Physician Endocrinology 03/12/23
--- OUTSIDE RECORDS SUMMARY | 2024-10-08 20:16 | XMS_ITS | Encounter Summary ---
Author Organization [facility] Health Address [address] [facility] [place] [address] Care Team Providers Care Cable Wirer Name Role Phone Luiza Fernandez MD Unavailable Stella Sneed MD Primary Care Provider [phone] Reason for Visit * Radiology Services (Routine) - Authorized Specialty Diagnoses / Procedures Referred By Contac t Referred To Contact CT Scan Diagnoses Pulmonary nodule Procedures CT Lung Screen Low Dose Michael Barlow MD [address] [facility] 2L DIV OF PULMONARY/[place] [address] [facility] [address] [place] [address] Referral ID Status Reason Start Date Expiration Date V isits Requested Visits Authorized [id number] Authorized 06/29/2024 06/29/2025 1 1 Encounter Details Date Type Department Care Team (Late st Contact Info) Description 10/06/2024 8:30 AM [facility] Hospital Encounter [facility] CAT SCAN [address] [place] [address] Michael Barlow MD [address] [facility] 2L DIV OF PULMONARY/[place] [address] Social History Tobacco Use Types [...] Sex Assigned at Female 09/05/2021 1:34 PM HEALTH COMMUNICATIONS SPECIALIST Gender Identity Female 09/05/2021 1:34 PM HEALTH COMMUNICATIONS SPECIALIST Sexual Orientation Straight 09/05/2021 1: 34 PM HEALTH COMMUNICATIONS SPECIALIST documented as of this encounter Functional Status [...] Office Visit [facility] - Pulmonology [address] [place] [phone] Luis Peter MD [address] [facility] PULMONARY DISEASE/[place] [address] 12/21/2024 2:20 PM CDT Office Visit [facility] - Endocrinology [address] [place] [address] [place] [phone] Joceline Reed MD [address] [place] [address] 12/29/2024 8:30 AM CDT Office Visit [facility] - GI [address] [place] [address], [place] [phone] 01/17/2025 1:00 PM CDT Office Visit [facility] - Neurology [address] [place] [address], [place] [phone] Yael Brock MD [address] [facility] 1L [place] [phone] 2025 8:40 AM CDT Office Visit [facility] - Sleep Services [address] [place] [phone] Breanna Layton, APVALERIANO-SENIOR INSPECTOR [address] [place] [address] 2L DIV OF PULMONARY/[place] [address] Scheduled Orders Name Type Priority Associated Diagnoses Orde r Schedule CT Lung Screen Low Dose Imaging Routine Pulmonary nodule 1 Occurrences starting 07/10/2024 until 07/10/2025 documented as of this encounter Goals Goal Patient Goal Type Associated Problems Recent Progress Patient-Stated? Author Medication Management General On track( 2:44 PM HEALTH COMMUNICATIONS SPECIALIST) Tammy Sanchez, RN Note: Expected end date: ongoing Interventions: Take all medications as prescribed Let your doctor know right away about any changes in your medications Make sure to request a refill of your medication at least one week prior to your last dose Safety General On track( 2:44 PM HEALTH COMMUNICATIONS SPECIALIST) Kylah Genao, RN Note: Expected end date: ongoing Interventions: Your nurse will assess your risk for falls/injury each visit Use appropriate and safe transfer methods Keep personal items within easy reach Use some light at night in your room Keep walking paths clutter free and clear documented as of this encounter Visit Diagnoses Not on filedocumented in this encounter Care Teams Cable Wirer Relationship Specialty Start Date End Date Stella Sneed MD [address] [place] [address] PCP - General Family Medicine 04/01/23 Luiza Fernandez MD [facility] [place] [address] Physician Endocrinology 03/12/23 documented as of this encounter
--- OUTSIDE RECORDS SUMMARY | 2024-10-08 20:16 | XMS_ITS | Clinical Summary ---
Author Organization [facility] [employer] Address [address] [place] [address] Care Team Providers Care Farm Instructor Name Role Phone Luiza Fernandez MD Unavailable Stella Sneed MD Primary Care Provider Source Comments [facility] [employer],non-owned Affiliates and Associated Physician Practices is amultiple site organization consisting of ambulatory clinics and hospital sitesin [place], [place], [place] and [place]. This disclosure is being madepursuant to the Care Everywhere program and may not contain all information available regarding this patient. Last updated 18.[facility] [employer] Allergies No known active allergies Medications * [...] tablet 2 08/22/20 22 Active blood glucose ([employer] Research CorporationTOUCH ULTRA TEST STRIPS) test stripIndications:T ype 2 [...] hyperglycemia, with long-term current use of insulin ([facility]) Take 1 (one) tablet by mouth once [...] SPASM 09/24/19 24 Active TRUEplus 5-Bevel [address] 32G X 4 MM MISCIndications:Di abetic polyneuropathy [...] complication, with long-term current use of insulin ([facility]) USE 1 TO TEST FOUR TIMES A [...] Active vitamin D, ergocalciferol, (Drisdol) 1.25 MG (20314 UT) capsule TAKE ONE CAPSULE BY MOUTH EVERY SEVEN DAYS 4 capsule 2 07/25/20 24 Active metoprolol tartrate IR (Lopressor) 100 MG tablet TAKE 1 TABLET BY MOUTH TWICE A DAY 180 tablet 3 07/29/20 24 Active Lantus SoloStar penIndications:Mercedes betic polyneuropathy associated with type 2 diabetes mellitus ([facility]) INJECT 10 UNITS UNDER THE SKIN ONCE [...] hyperglycemia, with long-term current use of insulin ([facility]) TAKE 1 TABLET BY MOUTH TWICE A [...] complication, with long-term current use of insulin ([facility]) Use 1 Each once daily As backup to insulin pump 100 Each 3 02/07/20 21 025 Discontinued(Li st Clean-Up) Blood Glucose Monitoring Suppl (ONE TOUCH ULTRA 2) w/Device KITIndications:Typ e 2 diabetes mellitus with other specified complication, with long-term current use of insulin ([facility]) Use 1 Each as directed 1 kit [...] Type Department Care Team Description 10/07/2024 Refill [facility] - Endocrinology [address] [place] [address] Luiza Fernandez MD Refill Request 10/06/2024 8:30 AM LIQUEFACTION AND REGASIFICATION HELPER Hospital Encounter [facility] CAT SCAN [address] [place] [address] Michael Barlow MD 09/27/2024 8:00 AM LIQUEFACTION AND REGASIFICATION HELPER Office Visit [facility] - Sleep Services [address] [place] [address] Breanna Layton, TICO-CHARGE MASTER ANALYST ESTHELA (obstructive sleep apnea) (Primary Dx); Sleep related hypoxia; Excessive daytime sleepiness; Chronic fatigue; Restless legs syndrome (RLS); Nocturia more than twice per night; Abnormal REM sleep; Grade II diastolic dysfunction; RBC microcytosis; Vitamin B6 deficiency; Copper deficiency; Chronic insomnia; Air leak; CPAP use counseling; Obesity (BMI 30-39.9) 09/27/2024 Travel 09/21/2024 Refill [facility] - Endocrinology [address] [place] [phone] Maggie Lester MD Refill Request 09/16/2024 Orders Only [facility] - Neurology [address] [place] [phone] Yael Brock MD 09/16/2024 Refill [facility] - Endocrinology [address] [place] [phone] Buck Louise MD Refill Request 09/15/2024 Telephone [facility] - Pulmonology [address] [place] [phone] Luis Peter MD Results 09/13/2024 10:20 AM LIQUEFACTION AND REGASIFICATION HELPER - 09/13/2024 11:59 PM LIQUEFACTION AND REGASIFICATION HELPER Hospital Encounter [facility] LAB OP DRAW STATION [address] [place] [address] Aj Hagan MD Discharge Disposition: Home or Self Care 09/13/2024 8:28 AM LIQUEFACTION AND REGASIFICATION HELPER - 09/13/2024 10:19 AM LIQUEFACTION AND REGASIFICATION HELPER Hospital Encounter [facility] EEG/EMG [address] [place] [address] Aj Hagan MD Discharge Disposition: Home or Self Care 09/13/2024 Travel 09/01/2024 Orders Only [facility] - Neurology [address] [place] [phone] Yael Brock MD Low serum copper level 08/30/2024 11:45 AM LIQUEFACTION AND REGASIFICATION HELPER - 08/30/2024 11:59 PM LIQUEFACTION AND REGASIFICATION HELPER Hospital Encounter [facility] LAB OP DRAW STATION [address] [place] [address] Discharge Disposition: Home or Self Care 08/30/2024 10:30 AM LIQUEFACTION AND REGASIFICATION HELPER Office Visit [facility] - Neurology [address] [place] [phone] Yael Brock MD Diabetic peripheral autonomic neuropathy (HCC) (Primary Dx) 08/30/2024 Travel 08/25/2024 1:06 PM LIQUEFACTION AND REGASIFICATION HELPER Anesthesia Event [facility] ENDOSCOPY [address] [place] [address] Subhash Charles MD Schlarman, Nicholas C, MD 08/25/2024 12:00 PM LIQUEFACTION AND REGASIFICATION HELPER - 08/25/2024 12:45 PM LIQUEFACTION AND REGASIFICATION HELPER Surgery [facility] ENDOSCOPY [address] [place] [address] Ricardo Jiménez MD COLONOSCOPY SCREEN--miralax prep 08/25/2024 10:53 AM LIQUEFACTION AND REGASIFICATION HELPER - 08/25/2024 2:19 PM LIQUEFACTION AND REGASIFICATION HELPER Hospital Encounter [facility] DARRELL OP [address] [place] [address] Ricardo Jiménez MD Surgery General Discharge Disposition: Home or Self Care 08/23/2024 Refill [facility] - Endocrinology [address] [place] [phone] Joceline Reed MD Refill Request 08/21/2024 Refill [facility] - Endocrinology [address] [place] [address], [place] [address] Buck Louise MD Refill Request 08/11/2024 Refill [facility] - Endocrinology [address] [place] [phone] Maggie Lester MD Refill Request 07/26/2024 Refill [facility] - Cardiology [address] [facility], [facility] [address] [place] [address] Diana Gonzalez, [place] Refill Request 07/26/2024 Refill [facility] - Endocrinology [address] [place] [address], [place] [address] Buck Louise MD Refill Request 07/18/2024 Travel 07/12/2024 Refill [facility] - Endocrinology [address] [place] [address], [place] [address] Joceline Reed MD Refill Request 07/12/2024 Refill [facility] - Endocrinology [address] [place] [phone] Maggie Lester MD Refill Request 07/10/2024 Telephone [facility] - Pulmonology [address] [place] [phone] Luis Peter MD Results from Last 3 [...] Sex Assigned at Female 09/05/2021 1:34 PM LIQUEFACTION AND REGASIFICATION HELPER Gender Identity Female 09/05/2021 1:34 PM LIQUEFACTION AND REGASIFICATION HELPER Sexual Orientation Straight 09/05/2021 1: 34 PM LIQUEFACTION AND REGASIFICATION HELPER Last Filed Vital Signs Vital Sign Reading Time Taken Comments Blood Pressure 113/81 09/27/2024 9:11 AM LIQUEFACTION AND REGASIFICATION HELPER Pulse 69 09/27/2024 9:11 AM LIQUEFACTION AND REGASIFICATION HELPER Temperature 36.7 C (98 F) 08/25/2024 1:42 PM LIQUEFACTION AND REGASIFICATION HELPER Respiratory Rate 16 08/25/2024 2:05 PM LIQUEFACTION AND REGASIFICATION HELPER Oxygen Saturation 98% 08/25/2024 2:05 PM LIQUEFACTION AND REGASIFICATION HELPER Inhaled Oxygen Concentration - - Weight 84.8 kg (187 lb) 09/27/2024 9:11 AM LIQUEFACTION AND REGASIFICATION HELPER Height 167.6 cm (5' 6 ) 09/27/2024 9:11 AM LIQUEFACTION AND REGASIFICATION HELPER Body Mass Index 30.18 09/27/2024 9:11 AM LIQUEFACTION AND REGASIFICATION HELPER Plan of Treatment Upcoming Encounters Date Type Department Care Team (Late st Contact Info) Description 11/03/2024 4:00 PM CDT Office Visit [facility] - Pulmonology [address] [place] [address], [place] [address] Luis Peter MD [facility] PULMONARY DISEASE/[place] [address] 12/21/2024 2:20 PM CDT Office Visit [facility] - Endocrinology [address] [place] [address], [place] [phone] Joceline Reed MD [address] [place] [address] 12/29/2024 8:30 AM CDT Office Visit [facility] - GI [address] [place] [address], [place] [address] 01/17/2025 1:00 PM CDT Office Visit [facility] - Neurology [address] [place] [address], [place] [phone] Yael Brock MD [address] [place] [address] 1L DIV [place] [phone] 2025 8:40 AM CDT Office Visit [facility] - Sleep Services [address] [place] [phone] Breanna Layton, TICO-CHARGE MASTER ANALYST [address] [place] [address] 2L DIV OF PULMONARY/[place] [address] Health Maintenance Due Date Last Done Comments [...] Medication Management General On track( 2:44 PM LIQUEFACTION AND REGASIFICATION HELPER) Tammy Sanchez RN Note: Expected end date: ongoing Interventions: Take all medications as prescribed Let your doctor know right away about any changes in your medications Make sure to request a refill of your medication at least one week prior to your last dose Safety General On track( 2:44 PM LIQUEFACTION AND REGASIFICATION HELPER) Kylah Genao RN Note: Expected end date: ongoing Interventions: Your nurse will assess your risk for falls/injury each visit Use appropriate and safe transfer methods Keep personal items within easy reach Use some light at night in your room Keep walking paths clutter free and clear Procedures Procedure Name Priority Date/Time Associated Diagnosis Comments PROTEIN ELECTROPHORESIS URINE RANDOM PANEL 09/16/2024 12:05 PM LIQUEFACTION AND REGASIFICATION HELPER PROTEIN ELECTROPHORESIS URINE RANDOM Routine 09/13/2024 10:36 AM LIQUEFACTION AND REGASIFICATION HELPER Diabetic peripheral autonomic neuropathy (HCC) EEG Routine 09/13/2024 8:49 AM LIQUEFACTION AND REGASIFICATION HELPER Diabetic peripheral autonomic neuropathy (HCC) VITAMIN B12 Routine 08/30/2024 12:26 PM LIQUEFACTION AND REGASIFICATION HELPER Diabetic peripheral autonomic neuropathy (HCC) CBC W AUTO DIFFERENTIAL Routine 08/30/2024 12:26 PM LIQUEFACTION AND REGASIFICATION HELPER Moderate persistent asthma without complication (HCC) IMMUNOSCORE IGE INTERP Routine 08/30/2024 12:17 PM LIQUEFACTION AND REGASIFICATION HELPER Moderate persistent asthma without complication (HCC) COPPER BLOOD Routine 08/30/2024 12:17 PM LIQUEFACTION AND REGASIFICATION HELPER Diabetic peripheral autonomic neuropathy (HCC) VITAMIN E Routine 08/30/2024 12:17 PM LIQUEFACTION AND REGASIFICATION HELPER Diabetic peripheral autonomic neuropathy (HCC) VITAMIN B6 Routine 08/30/2024 12:17 PM LIQUEFACTION AND REGASIFICATION HELPER Diabetic peripheral autonomic neuropathy (HCC) IGE BLOOD Routine 08/30/2024 12:17 PM LIQUEFACTION AND REGASIFICATION HELPER Moderate persistent asthma without complication (HCC) ALLERGEN RESPIRATORY PNL REGION 8 ([place] Routine 08/30/2024 12:17 PM LIQUEFACTION AND REGASIFICATION HELPER Moderate persistent asthma without complication (HCC) PROTEIN ELECTROPHORESIS BLOOD Routine 08/30/2024 12:17 PM LIQUEFACTION AND REGASIFICATION HELPER Diabetic peripheral autonomic neuropathy (HCC) PATHOLOGY TISSUE Routine 08/25/2024 1:24 PM LIQUEFACTION AND REGASIFICATION HELPER Screen for colon cancer ENDOSCOPY, COLON, SCREENING Routine 08/25/2024 1:09 PM LIQUEFACTION AND REGASIFICATION HELPER VT COLOREC CANC SCRN,SCOPY NOT HI RISK 08/25/2024 1:01 PM LIQUEFACTION AND REGASIFICATION HELPER Screen for colon cancer Special Needs Message Received: Today Mily Mcintosh MD [facility] Schedulers - Endoscopy Pool Al, We would like to schedule the above [...] POINT OF CARE Routine 08/25/2024 12:00 PM LIQUEFACTION AND REGASIFICATION HELPER COMPREHENSIVE METABOLIC PANEL Routine 10/13/2023 12:55 PM LIQUEFACTION AND REGASIFICATION HELPER Diabetic polyneuropathy associated with type 2 diabetes mellitus (HCC) HEMOGLOBIN A1C - POINT OF CARE (AMB) [facility] Routine 10/13/2023 11:33 AM LIQUEFACTION AND REGASIFICATION HELPER Diabetic polyneuropathy associated with type 2 diabetes mellitus (HCC) MICROALB/CREAT RATIO URINE RANDOM PANEL Routine 06/09/2023 12:44 PM CDT Type 2 diabetes mellitus with hyperglycemia, with long-term current use of insulin (HCC) CT LUNG SCREEN LOW DOSE Routine 09/24/2021 10:13 AM LIQUEFACTION AND REGASIFICATION HELPER Ex-smoker HEPATITIS C ANTIBODY Routine 04/24/2016 1:05 PM CDT from Last 3 Months or Most Recently Relevant to Health Maintenance Results * (ABNORMAL) PROTEIN ELECTROPHORESIS URINE RANDOM PANEL (09/16/2024 12:05 PM LIQUEFACTION AND REGASIFICATION HELPER) Creatinine Urine 33 20 - 275 mg/dL [...] % [facility] Alpha-1 Globulin 0 % [facility] [id number] 0 % [facility] Beta-Globulin 0 % [facility] [...] ordered. REPORT COMMENT: FASTING:YES Test Performed at: [facility] [address] [place] [address] GRETEL ZACARIAS MD 09/16/2024 12:0 5 PM LIQUEFACTION AND REGASIFICATION HELPER 09/16/2024 12:06 PM LIQUEFACTION AND REGASIFICATION HELPER Yael Brock MD LAB - URINE CHEMISTR Y ORDERABLES [facility] [address] [place] [address] * PROTEIN ELECTROPHORESIS URINE RANDOM (09/13/2024 10:36 AM LIQUEFACTION AND REGASIFICATION HELPER) Interpretation Urine PE See Comment Normal Pattern 09/15/2024 2:59 PM LIQUEFACTION AND REGASIFICATION HELPER [facility]ORATORY [facility] Comment: Urine protein electrophoresis shows a band corresponding to albumin with small amounts of other nonspecific proteinuria. No monoclonal immunoglobulins detected. Felipa Myles PhD, [facility] Clinical Day Haul Youth Supervisor survey instrument operator Protein Urine <7 Not Established mg/dL 09/15/2024 2:59 PM LIQUEFACTION AND REGASIFICATION HELPER [facility] Urine URINE SPECIMEN OBTAINED BY CLEAN CATCH PROCEDURE / Unknown Collection / Unknown 09/13/2024 10:36 AM LIQUEFACTION AND REGASIFICATION HELPER 09/13/2024 11:22 AM LIQUEFACTION AND REGASIFICATION HELPER Yael Brock MD LAB - URINE CHEMISTR Y ORDERABLES [address] [address], [facility] [phone] * EEG (09/13/2024 8:49 AM LIQUEFACTION AND REGASIFICATION HELPER) Narrative Aj Hagan MD - 09/13/2024 8:49 AM LIQUEFACTION AND REGASIFICATION HELPER Aj Hagan MD 09/13/2024 11:34 AM EEG [...] ONE TABLET BY MOUTH DAILY blood glucose ([employer]CH ULTRA TEST STRIPS) test strip Use 1 [...] (one) tablet by mouth TRUEplus 5-Be[address] 32G X 4 MM [facility] [place] USE TO INJECT SUBCUTANEOUSLY DAILY Trulicity 1.5 MG/0.5ML injection Inject 1.5 (one and one-half) mg subcutaneously every 7 days vitamin D, ergocalciferol, (Drisdol) 1.25 MG (14581 UT) capsule TAKE ONE CAPSULE BY MOUTH [...] (ABNORMAL) CBC W/ DIFFERENTIAL (08/30/2024 12:26 PM [facility]) WBC 9.5 4.0 - 10.7 x10E9/L 08/30/2024 12:45 PM [facility] [place] [facility] RBC Count 5.09 3.90 - 5.20 x10E12/L 08/30/2024 12:45 PM [facility] [place] Hemoglobin 12.6 11.9 - 15.8 g/dL 08/30/2024 12:45 PM [facility] Hematocrit 39.3 34.8 - 46.1 % 08/30/2024 12:45 PM [facility] MCV 77.2(L) 80.0 - 98.0 fL 08/30/2024 12:45 PM [facility] MCH 24.8(L) 26.7 - 33.6 pg 08/30/2024 12:45 PM [facility] MCHC 32.1 31.7 - 36.3 g/dL 08/30/2024 12:45 PM [facility] RDW-CV 14.5 11.3 - 14.8 % 08/30/2024 12:45 PM [facility] Platelet Count 224 150 - 420 x10E9/L 08/30/2024 12:45 PM [facility] MPV 11.7(H) 7.8 - 11.4 fL 08/30/2024 12:45 PM [facility] Neutrophil % 69.7 41.0 - 74.0 % 08/30/2024 12:45 PM [facility] Lymphocyte % 17.1 17.0 - 47.0 % 08/30/2024 12:45 PM [facility] Monocyte % 7.3 3.0 - 11.0 % 08/30/2024 12:45 PM [facility] Eosinophil % 4.8 0.0 - 7.0 % 08/30/2024 12:45 PM [facility] Basophil % 0.8 0.0 - 1.6 % 08/30/2024 12:45 PM [facility] Immature Granulocytes % 0.3 0.0 - 1.0 % 08/30/2024 12:45 PM [facility] Neutrophil Absolute 6.60 1.60 - 7.50 x10E9/L 08/30/2024 12:45 PM [facility] Lymphocyte Absolute 1.62 1.00 - 4.40 x10E9/L 08/30/2024 12:45 PM [facility] Monocyte Absolute 0.69 0.15 - 1.00 x10E9/L 08/30/2024 12:45 PM [facility] Eosinophil Absolute 0.45 0.00 - 0.60 x10E9/L 08/30/2024 12:45 PM [facility] Basophil Absolute 0.08 0.00 - 0.13 x10E9/L 08/30/2024 12:45 PM [facility] Blood BLOOD SPECIMEN / Unknown Lab Venipuncture / Unknown 08/30/2024 12:26 PM LIQUEFACTION AND REGASIFICATION HELPER 08/30/2024 12:27 PM LIQUEFACTION AND REGASIFICATION HELPER Michael Barlow MD LAB - HEMATOLOGY ORD ERABLES [address] [address], [facility] [phone] * VITAMIN B12 (08/30/2024 12:26 PM LIQUEFACTION AND REGASIFICATION HELPER) Vitamin B12 491 213 - 816 pg/mL 08/30/2024 1:30 PM [facility] Blood BLOOD SPECIMEN / Unknown Lab Venipuncture / Unknown 08/30/2024 12:26 PM LIQUEFACTION AND REGASIFICATION HELPER 08/30/2024 12:27 PM LIQUEFACTION AND REGASIFICATION HELPER Yael Brock MD LAB - CHEMISTRY ORDE ELEON[place] [address] [address] [phone] * IMMUNOSCORE IGE INTERP (08/30/2024 12:17 PM LIQUEFACTION AND REGASIFICATION HELPER) [facility] Immunocap Score See Note 3:58 PM LIQUEFACTION AND REGASIFICATION HELPER [employer] ([facility]) Comment: REFERENCE INTERVAL: Allergen, Interpretation Less than [...] clinical allergy or even anaphylaxis. Performed By: [employer] [address] [place] [id number] Cancer Researcher: Benjamin Barnett MD, PhD CLIA Number: [id number] Blood BLOOD SPECIMEN / Unknown Lab Venipuncture / Unknown 08/30/2024 12:17 PM LIQUEFACTION AND REGASIFICATION HELPER 08/30/2024 12:17 PM LIQUEFACTION AND REGASIFICATION HELPER Michael Barlow MD LAB - SEROLOGY ORDER [facility]) [address] [place] [address] * VITAMIN E (08/30/2024 12:17 PM LIQUEFACTION AND REGASIFICATION HELPER) Pathologist [facility] Vitamin E Alpha Tocopherol 7.9 5.5 - 18.0 mg/L 09/02/2024 3:57 PM LIQUEFACTION AND REGASIFICATION HELPER [facility] ([facility]) Comment: This test was developed and its performance characteristics determined by [employer]. It has not been cleared or approved by the US Food and Drug Administration. This test was performed in a CLIA certified laboratory and is intended for clinical purposes. Vitamin E Gamma Tocopherol 1.4 0.0 - 6.0 mg/L 09/02/2024 3:57 PM LIQUEFACTION AND REGASIFICATION HELPER [facility] [employer] ([facility]) Comment: Performed By: [facility] [address] [place] [address] Cancer Researcher: Benjamin Barnett MD, PhD CLIA Number: [id number] Blood BLOOD SPECIMEN / Unknown Lab Venipuncture / Unknown 08/30/2024 12:17 PM LIQUEFACTION AND REGASIFICATION HELPER 08/30/2024 12:17 PM LIQUEFACTION AND REGASIFICATION HELPER Yael Brock MD LAB - CHEMISTRY ORDE [facility] Organization Address [facility]/State/ZIP Co de Phone Number [facility]) [address] [place] [address] * (ABNORMAL) VITAMIN B6 (08/30/2024 12:17 PM LIQUEFACTION AND REGASIFICATION HELPER) [facility] Vitamin B6 18.9(L) 20.0 - 125.0 nmol/L 09/02/2024 6:31 AM LIQUEFACTION AND REGASIFICATION HELPER [facility] ([facility]) Comment: INTERPRETIVE INFORMATION: Vitamin B6 (Pyridoxal 5-Phosphate) Pyridoxal 5'-phosphate measured in a specimen collected following an 8-hour or overnight fast accurately indicates vitamin B6 nutritional status. Non-fasting specimen concentration reflects recent vitamin intake. This test was developed and its performance characteristics determined by [employer]. It has not been cleared or approved by the US Food and Drug Administration. This test was performed in a CLIA certified laboratory and is intended for clinical purposes. Performed By: [facility] [address] [place] [address] Cancer Researcher: Benjamin Barnett MD, PhD CLIA Number: [id number] Blood BLOOD SPECIMEN / Unknown Lab Venipuncture / Unknown 08/30/2024 12:17 PM LIQUEFACTION AND REGASIFICATION HELPER 08/30/2024 12:17 PM LIQUEFACTION AND REGASIFICATION HELPER Yael Brock MD LAB - CHEMISTRY CHARLI CREWS [facility] Organization Address City/State/ZIP Co de Phone Number [facility] [email or web address] [address] [place] [address], [facility] * (ABNORMAL) ALLERGEN RESPIRATORY PNL REGION 8 ([place]) (08/30/2024 12:17 PM LIQUEFACTION AND REGASIFICATION HELPER) IgE Total 102 <=214 kU/L 09/01/2024 3:56 PM LIQUEFACTION AND REGASIFICATION HELPER [facility] ([facility]) Comment: REFERENCE INTERVAL: Immunoglobulin E, Serum Access complete set of age- and/or gender-specific reference intervals for this test in the [facility] Laboratory Test Directory ([place] [employer]). Allergen Bowen Elder <0.10 <=0.34 kU/L 09/01/2024 3:56 PM LIQUEFACTION AND REGASIFICATION HELPER [facility] ([facility]) Allergen Alternaria alternata <0.10 <=0.34 kU/L 09/01/2024 3:56 PM LIQUEFACTION AND REGASIFICATION HELPER [facility] ([facility]) Allergen [place] Maple 0.11 <=0.34 kU/L 09/01/2024 3:56 PM LIQUEFACTION AND REGASIFICATION HELPER [facility]) Allergen Cat Dander <0.10 <=0.34 kU/L 09/01/2024 3:56 PM LIQUEFACTION AND REGASIFICATION HELPER [facility] ([facility]) Allergen [place] <0.10 <=0.34 kU/L 09/01/2024 3:56 PM LIQUEFACTION AND REGASIFICATION HELPER [facility] ([facility]) Allergen Cole Tree 0.25 <=0.34 kU/L 09/01/2024 3:56 PM LIQUEFACTION AND REGASIFICATION HELPER [facility] ([facility]) Allergen Rough Pigweed 0.22 <=0.34 kU/L 09/01/2024 3:56 PM LIQUEFACTION AND REGASIFICATION HELPER [facility] ([facility]) Allergen French Thistle 0.40(H) <=0.34 kU/L 09/01/2024 3:56 PM LIQUEFACTION AND REGASIFICATION HELPER [facility] ([facility]) Allergen Ricardo Grass 0.81(H) <=0.34 kU/L 09/01/2024 3:56 PM LIQUEFACTION AND REGASIFICATION HELPER [facility] ([facility]) Allergen Hormodendrum <0.10 <=0.34 kU/L 09/01/2024 3:56 PM LIQUEFACTION AND REGASIFICATION HELPER [facility] ([facility]) Allergen Elm 0.24 <=0.34 kU/L 09/01/2024 3:56 PM LIQUEFACTION AND REGASIFICATION HELPER [facility] ([facility]) Allergen [place] <0.10 <=0.34 kU/L 09/01/2024 3:56 PM LIQUEFACTION AND REGASIFICATION HELPER [facility] ([facility]) Allergen A fumigatus IgE <0.10 <=0.34 kU/L 09/01/2024 3:56 PM LIQUEFACTION AND REGASIFICATION HELPER [facility] ([facility]) Allergen Dermatophagoides pteronyssinus <0.10 <=0.34 kU/L 09/01/2024 3:56 PM LIQUEFACTION AND REGASIFICATION HELPER [facility] ([facility]) Allergen Dermatophagoides farinae <0.10 <=0.34 kU/L 09/01/2024 3:56 PM LIQUEFACTION AND REGASIFICATION HELPER [facility] ([facility]) Allergen Bermuda Grass <0.10 <=0.34 kU/L 09/01/2024 3:56 PM LIQUEFACTION AND REGASIFICATION HELPER [facility] ([facility]) Allergen White Darrion 0.35(H) <=0.34 kU/L 09/01/2024 3:56 PM LIQUEFACTION AND REGASIFICATION HELPER [facility] ([facility]) Allergen P. Notatum <0.10 <=0.34 kU/L 09/01/2024 3:56 PM LIQUEFACTION AND REGASIFICATION HELPER [facility] ([facility]) Allergen Common Ragweed <0.10 <=0.34 kU/L 09/01/2024 3:56 PM LIQUEFACTION AND REGASIFICATION HELPER [facility] ([facility]) Allergen Cockroach Armenian <0.10 <=0.34 kU/L 09/01/2024 3:56 PM LIQUEFACTION AND REGASIFICATION HELPER [facility] ([facility]) Allergen Sumpter Tree <0.10 <=0.34 kU/L 09/01/2024 3:56 PM LIQUEFACTION AND REGASIFICATION HELPER [facility] ([facility]) Allergen Maunaloa Tree <0.10 <=0.34 kU/L 09/01/2024 3:56 PM LIQUEFACTION AND REGASIFICATION HELPER [facility] ([facility]) Allergen Pecan Tree <0.10 <=0.34 kU/L 09/01/2024 3:56 PM LIQUEFACTION AND REGASIFICATION HELPER [facility] ([facility]) Allergen Mouse Epithelium IgE <0.10 <=0.34 kU/L 09/01/2024 3:56 PM LIQUEFACTION AND REGASIFICATION HELPER [facility]) Allergen Mucor racemosus <0.10 <=0.34 kU/L 09/01/2024 3:56 PM LIQUEFACTION AND REGASIFICATION HELPER [facility] ([facility]) Allergen White Payson Tree IgE <0.10 <=0.34 kU/L 09/01/2024 3:56 PM LIQUEFACTION AND REGASIFICATION HELPER [facility] ([facility]) Allergen Dog Dander <0.10 <=0.34 kU/L 09/01/2024 3:56 PM LIQUEFACTION AND REGASIFICATION HELPER [facility] ([facility]) Comment: Performed By: [facility] [address] [place] [address] Cancer Researcher: Benjamin Barnett MD, PhD CLIA Number: [id number] Blood BLOOD SPECIMEN / Unknown Lab Venipuncture / Unknown 08/30/2024 12:17 PM LIQUEFACTION AND REGASIFICATION HELPER 08/30/2024 12:17 PM LIQUEFACTION AND REGASIFICATION HELPER Michael Barlow MD LAB - [facility] Organization Address City/State/ZIP Co de Phone Number [facility]) [address] [place] [address], [facility] * (ABNORMAL) COPPER BLOOD (08/30/2024 12:17 PM LIQUEFACTION AND REGASIFICATION HELPER) Copper 72.8(L) 80.0 - 155.0 ug/dL 09/01/2024 7:31 AM LIQUEFACTION AND REGASIFICATION HELPER [facility] ([facility]) Comment: INTERPRETIVE INFORMATION: Copper, Serum or Plasma [...] developed and its performance characteristics determined by [employer]. It has not been cleared or approved by the US Food and Drug Administration. This test was performed in a CLIA certified laboratory and is intended for clinical purposes. Performed By: [facility] [address] [place] [address] Cancer Researcher: Benjamin Barnett MD, PhD CLIA Number: [id number] Blood BLOOD SPECIMEN / Unknown Lab Venipuncture / Unknown 08/30/2024 12:17 PM LIQUEFACTION AND REGASIFICATION HELPER 08/30/2024 12:17 PM LIQUEFACTION AND REGASIFICATION HELPER Yael Brock MD LAB - CHEMISTRY ORDE ELEONORA [facility] ([facility]) [address] [place] [address], [facility] * PROTEIN ELECTROPHORESIS BLOOD (08/30/2024 12:17 PM LIQUEFACTION AND REGASIFICATION HELPER) Interpretation Serum PE Normal Pattern Normal Pattern 09/01/2024 4:15 PM [facility] Comment: Serum capillary electrophoresis shows characteristic bands corresponding to albumin, alpha and beta globulins and polyclonal immunoglobulins. No monoclonal immunoglobulin detected. Non-secretory myeloma (NSM) and light chain only myeloma cannot be excluded based on this result. Recommend serum free light chain measurements for complete evaluation of plasma cell disorders. Felipa Myles PhD, [facility] Clinical Day Ha[employer] Youth Supervisor survey instrument operator *The electrophoresis pattern and the interpretation have been reviewed and verified by the teaching physician. Protein Total 6.5 6.0 - 8.3 g/dL 09/01/2024 4:15 PM [facility] Albumin 3.9 3.3 - 5.6 g/dL 09/01/2024 4:15 PM [facility] Alpha-1 Globulins 0.2 0.2 - 0.4 g/dL 09/01/2024 4:15 PM [facility] Alpha-2 Globulins 0.7 0.5 - 1.0 g/dL 09/01/2024 4:15 PM [facility] Beta Globulins 0.7 0.6 - 1.1 g/dL 09/01/2024 4:15 PM [facility] Gamma Globulins 0.9 0.6 - 1.6 g/dL 09/01/2024 4:15 PM LIQUEFACTION AND REGASIFICATION HELPER [facility] Blood BLOOD SPECIMEN / Unknown Lab Venipuncture / Unknown 08/30/2024 12:17 PM LIQUEFACTION AND REGASIFICATION HELPER 08/30/2024 12:17 PM LIQUEFACTION AND REGASIFICATION HELPER Yael Brock MD LAB - CHEMISTRY CHARLI CREWS [facility] [place] [address] [place] [address], [facility] [phone] * IGE BLOOD (08/30/2024 12:17 PM LIQUEFACTION AND REGASIFICATION HELPER) IgE Total 113 <=214 kU/L 09/01/2024 5:23 AM LIQUEFACTION AND REGASIFICATION HELPER [facility] [employer] ([facility]) Comment: REFERENCE INTERVAL: Immunoglobulin E, Serum Access complete set of age- and/or gender-specific reference intervals for this test in the [facility] Laboratory Test Directory ([place] [employer]). Performed By: [employer] [address] [place] [address] Cancer Researcher: Benjamin Barnett MD, PhD CLIA Number: [id number] Blood BLOOD SPECIMEN / Unknown Lab Venipuncture / Unknown 08/30/2024 12:17 PM LIQUEFACTION AND REGASIFICATION HELPER 08/30/2024 12:17 PM LIQUEFACTION AND REGASIFICATION HELPER Michael Barlow MD LAB - CHEMISTRY CHARLI CREWS [facility]) [address] [place] [address] * PATHOLOGY TISSUE (08/25/2024 1:24 PM LIQUEFACTION AND REGASIFICATION HELPER) Case Report Surgical Pathology Report Case: [id number] Authorizing Provider: Ricardo Jiménez MD Collected: 08/25/2024 01:24 PM Ordering Location: [facility] ENDOSCOPY Received: 08/25/2024 03:33 PM Pathologist: Adrienne Haynes MD Specimen: Polyp Ascending, ascending colon polyp x1 08/26/2024 9:36 AM LIQUEFACTION AND REGASIFICATION HELPER [facility] PATHOLOGY LAB Final Diagnosis Large intestine, ascending colon polyp x 1, biopsy (A): - Tubular adenoma 08/26/2024 9:36 AM LIQUEFACTION AND REGASIFICATION HELPER [facility] PATHOLOGY LAB Microscopic Description and Comment Microscopic examination substantiates the final diagnosis. 08/26/2024 9:36 AM [facility] PATHOLOGY LAB Clinical History The patient is a 59-year-old woman who presents for high risk colon cancer surveillance (personal history of colonic polyps). Operative procedure/findings: Colonoscopy - 2 mm ascending colon polyp, resected and retrieved. 08/26/2024 9:36 AM [facility] PATHOLOGY LAB Gross Description The requisition and specimen(s) are identified with the patient's name, Sylvia Griffin. Received in formalin, specimen A , is a single parker-pink tissue fragment 0.2 x 0.2 x 0.1 cm submitted in toto in cassette A1. IKD 08/26/2024 9:36 AM [facility] PATH[facility] LAB Pathologist Location at [facility] 08/26/2024 9:36 AM [facility] PATH[facility] LAB Disclaimer The performance characteristics of all immunohistochemical and indirect immunofluorescence stains (if any) cited in this report were determined by the Histopathology Laboratory of [facility]. Some of these tests were developed by [...] the attending (teaching) pathologist. 08/26/2024 9:36 AM [facility] PATHOLOGY LAB Embedded Images 08/26/2024 9:36 AM [facility] PATH[facility] LAB Biopsy, NOS POLYP / Unknown 08/25/2024 1 :24 PM LIQUEFACTION AND REGASIFICATION HELPER 08/25/2024 3:33 PM LIQUEFACTION AND REGASIFICATION HELPER Comment:Pre-op diagnosis: Screen for colon cancer [Z12.11] Ricardo Jiménez MD LAB - PATHOLOGY/CYTO LOGY ORDERABLES [facility] PATHOLOGY LAB [address] [phone] * ENDOSCOPY, COLON, SCREENING (08/25/2024 1:09 PM LIQUEFACTION AND REGASIFICATION HELPER) Report Endoscopy POC Endoscopy Department Report _ [...] entire procedure. Procedure Code(s): --- Professional --- 68908, Colonoscopy, flexible; with biopsy, single or multiple Diagnosis Code(s): --- Professional --- Z86.010, Personal history of colonic polyps K64.9, Unspecified hemorrhoids D12.2, Benign neoplasm of ascending colon K57.30, Diverticulosis of large intestine without perforation or abscess without bleeding CPT copyright 2021 [employer]. All rights reserved. The codes documented in this report are preliminary and upon hims coder review may be revised to meet current compliance requirements. Ricardo Jiménez, 08/25/2024 1:40:05 PM Note Initiated On: 08/25/2024 1:09 PM Number of Addenda: [id number] [place] [address] PROVATION 08/25/2024 1:09 PM LIQUEFACTION AND REGASIFICATION HELPER Ricardo Jiménez MD GI PROCEDURE ORDERAB [facility] * (ABNORMAL) GLUCOSE - POINT OF CARE (08/25/2024 12:00 PM LIQUEFACTION AND REGASIFICATION HELPER) Glucose WB/POC 189(H) 70 - 99 mg/dL 08/25/2024 1:05 PM LIQUEFACTION AND REGASIFICATION HELPER [facility] Specimen Type Venous 08/25/2024 1:05 PM [facility] Blood BLOOD SPECIMEN / Unknown 08/25/2024 12:00 PM LIQUEFACTION AND REGASIFICATION HELPER 08/25/2024 1:05 PM LIQUEFACTION AND REGASIFICATION HELPER Ricardo Jiménez MD LAB - POINT OF CARE ORDERABLES [facility] [address] [place] [address], [facility] [phone] * (ABNORMAL) COMPREHENSIVE METABOLIC PANEL (10/13/2023 12:55 PM LIQUEFACTION AND REGASIFICATION HELPER) BUN 28(H) 7 - 26 mg/dL 10/13/2023 1:57 PM [facility] Creatinine 0.93 0.56 - 0.96 mg/dL 10/13/2023 1:57 PM [facility] Sodium 133(L) 136 - 145 mmol/L 10/13/2023 1:57 PM [facility] Potassium 4.9(H) 3.5 - 4.5 mmol/L 10/13/2023 1:57 PM [facility] Chloride 99 98 - 107 mmol/L 10/13/2023 1:57 PM [facility] CO2 25 22 - 29 mmol/L 10/13/2023 1:57 PM [facility] Glucose 269(H) 70 - 115 mg/dL 10/13/2023 1:57 PM [facility] Calcium 9.3 8.4 - 10.2 mg/dL 10/13/2023 1:57 PM [facility] Protein Total 6.9 6.0 - 8.3 g/dL 10/13/2023 1:57 PM [facility] Albumin 4.0 3.4 - 5.0 g/dL 10/13/2023 1:57 PM [facility] Bilirubin Total 0.6 0.2 - 1.2 mg/dL 10/13/2023 1:57 PM [facility] Alkaline Phosphatase 81 40 - 150 U/L 10/13/2023 1:57 PM [facility] ALT 20 5 - 55 U/L 10/13/2023 1:57 PM [facility] AST 15 5 - 34 U/L 10/13/2023 1:57 PM [facility] Anion Gap 9 6 - 16 10/13/2023 1:57 PM [facility] BUN/Creatinine Ratio 30(H) 7 - 23 10/13/2023 1:57 PM [facility] Osmolality Calculated 291 275 - 295 mOsm/kg 10/13/2023 1:57 PM [facility] Albumin/Globulin Ratio 1.4 1.1 - 2.3 10/13/2023 1:57 PM [facility] eGFR by CKD-EPI 71(L) >=90 mL/min/1.7 3 m2 10/13/2023 1:57 PM [facility] Blood BLOOD SPECIMEN / Unknown Lab Venipuncture / Unknown 10/13/2023 12:55 PM LIQUEFACTION AND REGASIFICATION HELPER 10/13/2023 1:23 PM LIQUEFACTION AND REGASIFICATION HELPER Luiza Fernandez MD LAB - CHEMISTRY ORDE [facility] Performing Organization Address City/[facility] [address]/ZIP Co de Phone Number [facility] [address] [place] [address], [facility] [phone] * HEMOGLOBIN A1C - POINT OF CARE (AMB) [facility] (10/13/2023 11:33 AM LIQUEFACTION AND REGASIFICATION HELPER) Hemoglobin A1c POCT 10.1 % [address] BLOOD SPECIMEN / Unknown 10/13/2023 11:33 AM LIQUEFACTION AND REGASIFICATION HELPER Luiza Fernandez MD LAB - POINT OF CARE ORDERABLES Performing Organization Address [facility] [address]/ZIP Co de Phone Number [address] [facility] [place] [address], [facility] [phone] * MICROALB/CREAT RATIO URINE RANDOM PANEL (06/09/2023 12:44 PM CDT) Albumin Random Urine 35.5 Not Established ug/mL 06/09/2023 2:28 PM CDT [facility] Creatinine Urine >400.00 Not Established mg/dL 06/09/2023 2:28 PM CDT [facility] Urine Albumin/Creati nine Ratio <9 <30 mg/g 06/09/2023 2:28 PM CDT [facility] Urine URINE SPECIMEN OBTAINED BY CLEAN CATCH PROCEDURE / Unknown Collection / Unknown 06/09/2023 12:44 PM CDT 06/09/2023 1:42 PM CDT Luiza Fernandez MD LAB - URINE CHEMISTR Y ORDERABLES Performing Organization Address City/[facility] [address]/[facility] Co de Phone Number [facility] [address] [place] [address], [facility] [phone] * CT LUNG SCREEN LOW DOSE (09/24/2021 10:13 AM LIQUEFACTION AND REGASIFICATION HELPER) Anatomical Region Laterality Modality Chest Computed Tomogra phy 09/24/2021 10:5 2 AM LIQUEFACTION AND REGASIFICATION HELPER Impressions 09/24/2021 11:08 AM LIQUEFACTION AND REGASIFICATION HELPER Impression: 1.5 mm pulmonary nodule in the [...] 11:08 AM . Narrative 09/24/2021 11:08 AM LIQUEFACTION AND REGASIFICATION HELPER Procedure Information DATE: 09/24/2021 10:14 AM EXAMINATION: [...] 1:05 PM CDT) Hepatitis C Antibody Non-react [facility] Comment: Hepatitis C Antibody screen indicates [...] LAB - CHEMISTRY CHARLI Vasquez Organization Address City/State/[facility] Co de Phone Number [facility] [address] [place], [place] [id number] [place] [address] from Last 3 Months or Most Recently Relevant to Health Maintenance Care Teams Farm Instructor Relationship Specialty Start Date End Date Stella Sneed MD [address] [place] [phone] PCP - General Family Medicine 04/01/23 Luiza Fernandez MD [address] [place] [phone] Physician Endocrinology 03/12/23
[2024-10-08 20:25] LABS: Hematocrit 38.8 % (37.0-47.0); Hemoglobin 12.5 g/dL (12.0-15.0); Mean Corpuscular HGB Conc 32.2 g/dl (32-36); Mean Corpuscular Hemoglobin 25.2 pg (26-34); Mean Corpuscular Volume 78.2 fl (80-100); Platelet Count Result 190 k/mm3 (150-375); Red Blood Count 4.96 M/mm3 (4.2-5.4); Red Cell Distribution Width 14.2 % (11.5-14.5); White Blood Count 12.4 K/mm3 (4.5-10.0)
[2024-10-08 20:36] LABS: Alanine Aminotransferase 26 U/L (6-35); Albumin Level 4.2 g/dL (3.5-5.1); Alkaline Phosphatase 92 U/L (38-126); Anion Gap 10 mmol/L (4-12); Aspartate Amino Transferase 28 U/L (14-36); Blood Urea Nitrogen 17 mg/dL (7-17); Calcium 9.1 mg/dL (8.4-10.2); Carbon Dioxide 26 mmol/L (22-30); Chloride 98 mmol/L (98-107); Estimated CRCL calculation 54 ml/min; Estimated Glomerular Filt Rate 52; Glucose 121 mg/dL (65-110); Lipase 95 U/L (23-300); Potassium 3.8 mmol/L (3.4-5.0); Sodium 134 mmol/L (137-145)
[2024-10-08 20:38] LABS: Giant Platelets Present; Large Platelets Present; Microcytosis 1+ (NORMAL); Platelet Estimate Adequate (Adequate)
[2024-10-08 20:39] LABS: Band Neutrophils Percent 1 % (0-6); Basophils Percent Manual 0 % (0-1); Eosinophils Percent Manual 0 % (0-4); Lymphocytes Absolute Manual 2.85 K/mm3 (1.1-4.5); Lymphocytes Percent Manual 23 % (18-44); Monocytes Absolute Manual 0.86 K/mm3 (0.1-0.90); Monocytes Percent Manual 7 % (3-9); Neutrophils Absolute Manual 8.68 K/mm3 (1.7-7.2); Neutrophils Percent Manual 69 % (46-73); Ovalocytes 1+; Schistocytes None Seen; Total Cells Counted 100
[2024-10-08 20:43] LABS: Add Urine Microscopic? YES; Appearance Urine Clear (Clear); Bacteria Urine None Seen /hpf; Bilirubin Urine Negative (Negative); Blood Urine Negative (Negative); Color Urine Yellow (Yellow); Glucose Urine UA 3+ mg/dL (Negative); Ketones Urine Negative (Negative); Leukocyte Esterase Ur 1+ LEU/UL (Negative); Nitrate Urine Negative (Negative); Non Pathogenic Casts 0-2; Protein Urine Negative (Negative); RBC Urine 0-2 /hpf (0-2); Specific Grav Ur 1.014 (1.001-1.035); Squamous Epithelial Cell Urine None Seen /hpf (Few); Urobilinogen Urine 0.2 mg/dL (<2.0); WBC Urine 21-50 /hpf (0-3); pH Urine 5.5 (5.0-9.0)
[2024-10-08] MEDS: LACTATED RINGERS 1,000 ML 999 ML IV CONT (21:16)
[2024-10-08] MEDS: ONDANSETRON INJ 4 MG/2 ML VIAL IV PUSH (21:17)
[2024-10-08] MEDS: HYDROmorphone HCL INJ (*CRX) 1 MG/ML SYR 0.5 MG IV PUSH (21:19)
[2024-10-08 23:01] VITALS: BP 100/72; PULSE 84; RESP 14; O2SAT 97
[2024-10-08 23:09] VITALS: BP 100/72; PULSE 84; RESP 14; O2SAT 97
== END 2024-10-08 23:12 | disposition home or self-care (01) ==
PROVIDERS: Emergency Provider Physician Assistant
DX: N39.0 Urinary tract infection, site not specified (principal); I25.10 Atherosclerotic heart disease of native coronary artery without angina pectoris; E78.5 Hyperlipidemia, unspecified; E11.43 Type 2 diabetes mellitus with diabetic autonomic (poly)neuropathy; K31.84 Gastroparesis; E11.42 Type 2 diabetes mellitus with diabetic polyneuropathy; K58.0 Irritable bowel syndrome with diarrhea; K21.9 Gastro-esophageal reflux disease without esophagitis; M19.90 Unspecified osteoarthritis, unspecified site; Z87.891 Personal history of nicotine dependence; Z87.442 Personal history of urinary calculi; Z90.721 Acquired absence of ovaries, unilateral; Z90.710 Acquired absence of both cervix and uterus; Z90.49 Acquired absence of other specified parts of digestive tract; Z79.899 Other long term (current) drug therapy; Z79.84 Long term (current) use of oral hypoglycemic drugs; Z79.82 Long term (current) use of aspirin; Z79.4 Long term (current) use of insulin
CPT/HCPCS: 36415; 74177; 80053; 81001; 83690; 85025; 87086; 96361; 96365; 96375; 99284; J0696; J1171; J2405; J7120; Q9967

== ENCOUNTER 2025-04-15 23:59 | Emergency (ER) | payer OTHER, SELFPAY ==
--- NOTE | ~2025-04-15 | XR_ITS ---
EXAMINATION: XR chest 1V portable 04/16/2025 00:27 INDICATION: Chest pain PROCEDURE: AP portable chest COMPARISON: Comparison to multiple prior studies sequentially, with oldest reviewed study dated 02/05/2024. FINDINGS: The lungs are clear. The cardiomediastinal silhouette is within normal limits. There are no pleural effusions. There is no pneumothorax suspected. IMPRESSION: 1: NO ACUTE CARDIOPULMONARY DISEASE. Reviewed, dictated and finalized at location O.
[2025-04-16] VITALS (30 sets, daily range): BP systolic 116–155; BP diastolic 64–99; PULSE 65–76; RESP 9–20; TEMP 36.6; O2SAT 96–100
--- NOTE | 2025-04-16 00:04 | ECG_ITS ---
Test Date: 2025-04-16 00:06:58 Measurements Intervals [place] Rate: 71 P: 18 MN: 263 QRS: 250 QRSD: 77 T: -20 QT: 387 QTc: 422 Interpretive Statements SINUS RHYTHM WITH FIRST DEGREE AV BLOCK RIGHT AXIS DEVIATION CONSIDER RIGHT VENTRICULAR CONDUCTION DELAY ANTERIOR INFARCT, AGE INDETERMINATE CONSIDER INFERIOR INFARCT, AGE INDETERMINATE BORDERLINE T WAVE ABNORMALITY- LATERAL LEADS BASELINE ARTIFACT- I, II, III, R, AVL ,AVF, V1-V6 ABNORMAL ECG Compared to ECG 07/12/2024 02:15:28 NO SIGNIFICANT CHANGE Electronically Signed On 04-16-2025 07:35:12 CDT by Ruy Gayle D.O.
[2025-04-16] MEDS: ASPIRIN 81 MG CHEWABLE TABLET 324 MG PO (00:12)
[2025-04-16 00:25] LABS: Hematocrit 40.3 % (37.0-47.0); Hemoglobin 13.2 g/dL (12.0-15.0); Immature Granulocyte Percent A 1.3 % (0-0.5); Lymphocytes Absolute Auto 2.93 K/mm3 (0.9-3.2); Mean Corpuscular HGB Conc 32.8 g/dl (32-36); Mean Corpuscular Hemoglobin 24.9 pg (26-34); Mean Corpuscular Volume 75.9 fl (80-100); Nucleated Red Blood Cells Absolute Auto 0.000 K/mm3 (0.0-0.012); Nucleated Red Blood Cells Perc 0.0 % (0.0-0.2); Platelet Count Result 290 k/mm3 (150-375); Red Blood Count 5.31 M/mm3 (4.2-5.4); White Blood Count 10.5 K/mm3 (4.5-10.0)
[2025-04-16 00:31] LABS: INR 1.0; Partial Thromboplastin Time 27.3 Seconds (22.3-36.8); Prothrombin Time 13.2 Seconds (11.1-14.7)
[2025-04-16] MEDS: ONDANSETRON INJ 4 MG/2 ML VIAL IV PUSH (00:40)
[2025-04-16] MEDS: MORPHINE SULFATE (*CRX) 2 MG/ML INJ IV PUSH ×2 (00:41→01:46)
[2025-04-16 00:48] LABS: Alanine Aminotransferase 36 U/L (6-35); Albumin Level 4.5 g/dL (3.5-5.1); Alkaline Phosphatase 76 U/L (38-126); Anion Gap 10 mmol/L (4-12); Aspartate Amino Transferase 32 U/L (14-36); Bilirubin,Total 1.0 mg/dL (0.2-1.3); Blood Urea Nitrogen 12 mg/dL (7-17); Calcium 9.3 mg/dL (8.4-10.2); Carbon Dioxide 21 mmol/L (22-30); Chloride 98 mmol/L (98-107); Estimated CRCL calculation 78 ml/min; Estimated Glomerular Filt Rate > 60; Glucose 103 mg/dL (65-110); Lipase 108 U/L (23-300); Magnesium 1.8 mg/dL (1.6-2.3); Potassium 4.3 mmol/L (3.4-5.0); Sodium 129 mmol/L (137-145); Total Protein 7.4 g/dL (6.3-8.2); Troponin I < 0.012 ng/mL (0.000-0.034)
--- NOTE | 2025-04-16 00:51 | ED.CHESTPAIN ---
HPI - Chest Pain General Chief Complaint: Chest Pain Stated Complaint: chest pain Time Seen by Provider: 04/16/25 00:02 History of Present Illness HPI narrative: Patient is a 60-year-old female who presents to the emergency department this evening complaining of chest pain. States the chest pain started earlier this evening approximately 4 hours ago and describes it as a substernal pressure radiating to both arms. Admits to mild shortness of breath associated with chest pain, denies any active nausea or vomiting but states yesterday she was nauseous and had 1 episode of vomiting. Denies any recent illness, any fevers or chills, any sick contacts at home. Notice symptoms or concerns at this time. Related Data Home Medications ?Medication ?Instructions ?Recorded ?Confirmed ?Last Taken ?Type albuterol sulfate 90 mcg/actuation 2 puff inhalation QID PRN SOB 01/17/20 09/16/24 Unknown History aerosol inhaler aspirin 81 mg chewable tablet 81 mg PO DAILY 01/17/20 09/16/24 05/17/22 09:00 History atorvastatin 80 mg tablet 80 mg PO HS 01/17/20 09/16/24 05/17/22 21:00 History budesonide-formoterol HFA 80 2 puff inhalation DAILY 01/17/20 09/16/24 05/18/22 History mcg-4.5 mcg/actuation aerosol inhaler (Symbicort) citalopram 40 mg tablet 40 mg PO DAILY 01/17/20 09/16/24 05/17/22 12:00 History cromolyn 4 % eye drops 1 drp ophthalmic (eye) 4-6XD 01/17/20 09/16/24 05/17/22 History famotidine 20 mg tablet 20 mg PO HS 01/17/20 09/16/24 05/17/22 21:00 History fluticasone propionate 50 1 spray intranasal DAILY 01/17/20 09/16/24 01/17/20 History mcg/actuation nasal spray,suspension insulin lispro 100 unit/mL 1 sliding scale dose subcut 01/17/20 09/16/24 01/17/20 History subcutaneous solution (Admelog USEASDIRECTD U-100 Insulin lispro) isosorbide mononitrate 60 mg 60 mg PO DAILY 01/17/20 09/16/24 01/17/20 History tablet,extended release 24 hr lisinopril 10 mg tablet 10 mg PO DAILY 01/17/20 09/16/24 05/17/22 12:00 History lorazepam 1 mg tablet 1 mg PO DAILY 01/17/20 09/16/24 01/17/20 History metformin 1,000 mg tablet 1,000 mg PO BID 01/17/20 09/16/24 01/17/20 History metoprolol tartrate 50 mg tablet 50 mg PO Q12H 01/17/20 09/16/24 01/17/20 History montelukast 10 mg tablet 10 mg PO DAILY 01/17/20 09/16/24 01/16/20 History nitroglycerin 0.4 mg sublingual 0.4 mg sublingual Q5-15M PRN Chest 01/17/20 09/16/24 Unknown History tablet Pain sumatriptan succinate 25 mg tablet 50 mg PO DAILY PRN Migranes 01/17/20 09/16/24 Unknown History trazodone 100 mg tablet 100 mg PO HS 01/17/20 09/16/24 01/16/20 History dicyclomine 10 mg capsule 10 mg PO QID PRN Diarrhea 06/15/20 09/16/24 05/17/22 09:00 History gabapentin 600 mg tablet 600 mg PO TID 06/15/20 09/16/24 Unknown History omeprazole 40 mg capsule,delayed 40 mg PO DAILY 05/19/22 09/16/24 Unknown History release Allergies Allergy/AdvReac Type Severity Reaction Status Date / Time No Known Allergies Allergy Verified 10/08/24 17:54 Review of Systems Review of Systems: All systems are reviewed and are negative unless stated otherwise in the HPI. [facility] Past Medical History Medical History Irritable bowel syndrome with diarrhea Kidney stones Hepatic steatosis Migraines GERD (gastroesophageal reflux disease) Osteoarthritis Bipolar disorder Anxiety PTSD (post-traumatic stress disorder) Gastroparesis Peripheral neuropathy Hyperlipidemia Diabetes mellitus Coronary artery disease Surgical History Surgical History History of surgery on left wrist History of back surgery History of left oophorectomy History of hysterectomy History of cholecystectomy History of tonsillectomy Family History Family History Father Hypertension Dementia Parkinsons disease Mother Hypertension Social History Social History Smoking packs per day: 1 Smoking cigarettes per day: 20.0 Years smoked: 25 Smoking pack-years: 25.00 Smoking status: Former smoker Tobacco type: cigarettes Second hand tobacco smoke exposure: No Alcohol intake: never Substance use: current Substance use type: marijuana Living arrangements: with family Occupation/Education: unemployed Gender identity (if verbalized by the patient): Female Spiritual care concerns: No Exam Narrative: General: Alert, awake, afebrile, in no acute distress. HEENT: PERRL, no rhinorrhea, no post nasal drip, oropharynx clear. Neck: Trachea midline, no JVD, no lymphadenopathy. Cardiovascular: Regular rate and rhythm, no murmurs, rubs or gallops, no peripheral edema. Respiratory: Clear to auscultation bilaterally, no tachypnea, no wheezing, no rhonchi, no rubs, no respiratory distress. Abdomen: Soft, nontender, nondistended, no rebound, no guarding, no peritoneal signs. Musculoskeletal: No joint swelling or deformity, normal muscle tone. Skin: No rashes or petechia, no signs of infection. Psychiatric: Alert and oriented, normal behavior and judgment for situation. Neurological: Alert and oriented to person, place, and time. Follows all commands. No focal deficits, speech is clear and fluent. Course Vital Signs Vital signs: Vital Signs Temperature 97.9 F 04/16/25 00:01 Pulse Rate 73 04/16/25 00:01 Respiratory Rate 14 04/16/25 00:01 Blood Pressure 116/94 H 04/16/25 00:01 Pulse Oximetry 99 04/16/25 00:01 Oxygen Delivery Room Air 04/16/25 00:01 Temperature 97.9 F 04/16/25 00:01 Pulse Rate 74 04/16/25 00:01 Respiratory Rate 14 04/16/25 00:01 Blood Pressure 116/94 H 04/16/25 00:01 Pulse Oximetry 99 04/16/25 00:01 Oxygen Delivery Room Air 04/16/25 00:01 MDM - Chest Pain MDM Narrative Medical decision making narrative: The patient was evaluated by myself in the emergency department. History is obtained from patient who is an independent historian and physical exam was performed. External medical records were reviewed at this time. IV was established and pertinent tests were ordered. Patient was administered full dose oral chewable aspirin, 2 mg of IV morphine 4 mg of IV Zofran. Patient continues to complain of pain and at this time she was administered 20 mg of IV Pepcid and 15 mg IV Toradol with improvement of her chest pain. EKG was obtained which revealed sinus rhythm rate 71 beats per minute, no evidence of acute ischemia. EKG was independently interpreted by me and is currently pending official cardiology read. Laboratory results obtained revealing no acute process. Initial troponin negative. Pre hour troponin also negative. Patient admits to history of acid reflux since she takes medication for her acid reflux twice a day. Imaging studies obtained included CXR which was independently interpreted by me revealing no acute process, which is pending final radiology interpretation. Differential diagnosis considerations include acute coronary syndrome, GERD, peptic ulcer disease, infectious process such as pneumonia, acute viral syndrome, acute stress reaction. Comorbidities impacting this visit include none. I have evaluated and discussed social determinants of health with the patient that could potentially impact subsequent diagnosis and treatment plans. On repeat assessment of the patient, reevaluation revealed that the patient is doing well and is in no acute distress. Patient symptoms have improved since she arrived to our emergency department. Patient is currently chest pain-free. Repeat vital signs were all reviewed and noted to be stable. Differential diagnosis and treatment plan were discussed with the patient at bedside. Patient agrees with discussion and after shared medical decision making agrees with discharge. All questions were answered to the patient's satisfaction. Patient will follow up with her PCP in 3-5 days. Patient was provided with strict return precautions and instructed to return to the emergency department if any new or worsening symptoms develop. The patient was discharged in stable condition. Lab Data 04/16/25 00:13 04/16/25 00:13 Labs: Lab Results 04/16/25 04/16/25 Range/Units 00:13 03:15 WBC 10.5 H (4.5-10.0) K/mm3 RBC 5.31 (4.2-5.4) M/mm3 Hgb 13.2 (12.0-15.0) g/dL Hct 40.3 (37.0-47.0) % MCV 75.9 L (80-100) fl MCH 24.9 L (26-34) pg MCHC 32.8 (32-36) g/dl RDW 14.4 (11.5-14.5) % Plt Count 290 D (150-375) k/mm3 MPV 10.5 H (7.4-10.4) fl Immature Gran % (Auto) 1.3 H (0-0.5) % Neut % (Auto) 58.9 (45.5-73.1) % Lymph % (Auto) 27.9 (18.3-44.2) % Reagan % (Auto) 7.1 (2.6-8.5) % Eos % (Auto) 3.8 (0-4.4) % Baso % (Auto) 1.0 (0.2-1.2) % Lymph # (Auto) 2.93 (0.9-3.2) K/mm3 Reagan # (Auto) 0.8 H (0.1-0.6) K/mm3 Eos # (Auto) 0.4 H (0-0.3) K/mm3 Baso # (Auto) 0.1 (0.0-0.1) K/mm3 Abs Immat Gran (auto) 0.14 H (0.00-0.031) K/mm3 Absolute Neuts (auto) 6.2 (1.3-6.7) K/mm3 Absolute Nucleated RBC 0.000 (0.0-0.012) K/mm3 Nucleated RBC % 0.0 (0.0-0.2) % PT 13.2 (11.1-14.7) Seconds INR 1.0 APTT 27.3 (22.3-36.8) Seconds Sodium 129 L (137-145) mmol/L Potassium 4.3 (3.4-5.0) mmol/L Chloride 98 (98-107) mmol/L Carbon Dioxide 21 L (22-30) mmol/L Anion Gap 10 (4-12) mmol/L BUN 12 D (7-17) mg/dL Creatinine 0.75 (0.7-1.0) mg/dL Estim Creat Clear Calc 78 ml/min Estimated GFR > 60 (59 - ) Glucose 103 (65-110) mg/dL Calcium 9.3 (8.4-10.2) mg/dL Magnesium 1.8 (1.6-2.3) mg/dL Total Bilirubin 1.0 (0.2-1.3) mg/dL AST 32 (14-36) U/L ALT 36 H (6-35) U/L Alkaline Phosphatase 76 (38-126) U/L Troponin I < 0.012 < 0.012 (0.000-0.034) ng/mL Total Protein 7.4 (6.3-8.2) g/dL Albumin 4.5 (3.5-5.1) g/dL Lipase 108 (23-300) U/L Discharge Plan Discharge Clinical Impression: Chest pain, Hyponatremia Patient Disposition: Home Condition: Improved Instructions: Antibiotic Form, Chest Pain (ED) Additional Instructions: Please follow-up with your family doctor within the next 3-5 days. Return to emergency department if any new or worsening symptoms develop. Patient Language: Nepali Prescriptions: No Action hydrocortisone 1 % cream 1 applic topical TID PRN (Reason: skin irritation) Qty: 28.35 0RF doxycycline monohydrate 100 mg tablet 100 mg PO BID 10 Days Qty: 20 0RF mupirocin 2 % ointment 1 applic topical BID Qty: 15 0RF gabapentin 600 mg tablet 600 mg PO TID dicyclomine 10 mg capsule 10 mg PO QID PRN (Reason: Diarrhea) sumatriptan succinate 25 mg Tablet 50 mg PO DAILY PRN (Reason: Migranes) atorvastatin 80 mg Tablet 80 mg PO HS citalopram 40 mg Tablet 40 mg PO DAILY Rx Instructions: pt takes at noon cromolyn 4 % drops 1 drp ophthalmic (eye) 4-6XD isosorbide mononitrate 60 mg Tablet Extended Release 24 Hr 60 mg PO DAILY famotidine 20 mg Tablet 20 mg PO HS trazodone 100 mg Tablet 100 mg PO HS metformin 1,000 mg Tablet 1,000 mg PO BID lisinopril 10 mg Tablet 10 mg PO DAILY Rx Instructions: pt takes at noon metoprolol tartrate 50 mg Tablet 50 mg PO Q12H nitroglycerin 0.4 mg Tablet, Sublingual 0.4 mg SUBLINGUAL Q5-15M PRN (Reason: Chest Pain) aspirin 81 mg Tablet,Chewable 81 mg PO DAILY montelukast 10 mg Tablet 10 mg PO DAILY lorazepam 1 mg Tablet 1 mg PO DAILY insulin lispro [Admelog U-100 Insulin lispro] 100 unit/mL Solution 1 sliding scale dose SUBCUT USEASDIRECTD Rx Instructions: pt uses a insulin pump w/this insulin albuterol sulfate 90 mcg/actuation Hfa Aerosol Inhaler 2 puff INHALATION QID PRN (Reason: SOB) fluticasone propionate 50 mcg/actuation [place],Suspension 1 spray INTRANASAL DAILY budesonide-formoterol [Symbicort] 80-4.5 mcg/actuation Hfa Aerosol Inhaler 2 puff INHALATION DAILY Claritin-D 24 Hour 10-240 mg tablet extended release 24 hr 1 tablet PO DAILY Qty: 10 0RF ibuprofen 800 mg tablet 800 mg PO TID PRN (Reason: pain) Qty: 30 0RF hydrocodone-acetaminophen 5-325 mg tablet 1 tablet PO Q6H PRN (Reason: pain) Qty: 5 0RF cephalexin 500 mg capsule 500 mg PO Q8H 7 Days Qty: 21 0RF omeprazole 40 mg Capsule,Delayed Release(Dr/Ec) 40 mg PO DAILY Follow-up/Referrals: Stella Sneed [Other] - 3 Days Time of Disposition: 03:50
[2025-04-16] MEDS: KETOROLAC 15 MG/ML VIAL (*BKC) IV PUSH (02:44)
[2025-04-16] MEDS: FAMOTIDINE 20 MG/2 ML VIAL IV PUSH (02:44)
[2025-04-16 03:44] LABS: Troponin I < 0.012 ng/mL (0.000-0.034)
--- NOTE | 2025-04-16 03:44 | ECG_ITS ---
Test Date: 2025-04-16 03:58:22 Measurements Intervals Milo Rate: 66 P: 36 ND: 238 QRS: -36 QRSD: 96 T: -28 QT: 417 QTc: 439 Interpretive Statements SINUS RHYTHM WITH FIRST DEGREE AV BLOCK LOW QRS VOLTAGE IN PRECORDIAL LEADS ANTERIOR INFARCT, AGE INDETERMINATE INFERIOR INFARCT, AGE INDETERMINATE BORDERLINE ST-T WAVE ABNORMALITY- LATERAL LEADS ABNORMAL ECG Compared to ECG 04/16/2025 00:06:58 NO SIGNIFICANT CHANGE Electronically Signed On 04-16-2025 07:37:41 CDT by Ruy Gayle D.O.
== END 2025-04-16 04:14 | disposition home or self-care (01) ==
PROVIDERS: Emergency Provider Emergency Medicine
DX: R07.89 Other chest pain (principal); E87.1 Hypo-osmolality and hyponatremia; I25.10 Atherosclerotic heart disease of native coronary artery without angina pectoris; E11.43 Type 2 diabetes mellitus with diabetic autonomic (poly)neuropathy; K31.84 Gastroparesis; E11.42 Type 2 diabetes mellitus with diabetic polyneuropathy; E78.5 Hyperlipidemia, unspecified; K58.0 Irritable bowel syndrome with diarrhea; K21.9 Gastro-esophageal reflux disease without esophagitis; M19.90 Unspecified osteoarthritis, unspecified site; F31.9 Bipolar disorder, unspecified; F43.10 Post-traumatic stress disorder, unspecified; F41.9 Anxiety disorder, unspecified; Z87.891 Personal history of nicotine dependence; Z87.442 Personal history of urinary calculi; Z90.721 Acquired absence of ovaries, unilateral; Z90.49 Acquired absence of other specified parts of digestive tract; Z90.710 Acquired absence of both cervix and uterus; Z79.899 Other long term (current) drug therapy; Z79.82 Long term (current) use of aspirin; Z79.4 Long term (current) use of insulin; Z79.84 Long term (current) use of oral hypoglycemic drugs; I44.0 Atrioventricular block, first degree; R94.31 Abnormal electrocardiogram [ECG] [EKG]
CPT/HCPCS: 36415; 71045; 80053; 83690; 83735; 84484; 85025; 85610; 85730; 93005; 96374; 96375; 96376; 99284; A9270; J1885; J2270; J2405